=== PATIENT | male | born 1940 | race Caucasian/White ===

== ENCOUNTER 2017-07-20 13:08 | Emergency (ER) | payer MEDICARE, BC ==
[~2017-07-20] VITALS: Ht 180.3 cm; Wt 110.3 kg
[~2017-07-20 13:08] MED LIST: ACLI1AER2 INH; ALLO300T2 PO; APIX5TAB PO; CEPH-460 PO; DESO0.053 TOPICAL; FURO1TAB60 PO; GLIP5TAB8 PO; KETO2CRE TOPICAL; METO50TA PO; METO5TAB3 PO; PIOG45TA3 PO; POTA-163 PO; SIMV20TA PO; SPIRCAP INH
[2017-07-20 13:35] VITALS: BP 134/58; PULSE 97; RESP 20; TEMP 97.3; O2SAT 94
[2017-07-20] MEDS ORDERED: OXYMETAZOLINE HCL 0.05% 15 ML NASAL SPRAY NASAL ONE (14:15)
[2017-07-20] MEDS ORDERED: MUPI2CRE3 (14:17)
[2017-07-20] MEDS ORDERED: LISI2.5T3 PO (14:17)
--- NOTE | 2017-07-20 14:32 | PD ---
HPI Chief Complaint: Nosebleed Time Seen by Provider: 14:00 Travel History International Travel<30 days: No Contact w/Intl Traveler<30days: No Traveled to known affect area: No History of Present Illness HPI This is a 76-year-old male who is on Eliquis for atrial fibrillation who has a history of recurrent epistaxis he follows with Dr. Jara who presents today with bleeding from his nose. He's been bleeding for about an hour and a half, constant, moderate severity. He tried to pack his nose and keep pressure on it but it hasn't helped so he came to the emergency department. Dr. Jara has been cauterizing his nose in clinic. PFSH Past Medical History Hx Anticoagulant Therapy: Yes (ELIQUIS) Blood Disorders: No Cancer: No Cardiovascular Problems: Yes (CAD, BYPASS SURGERY) Diabetes: Yes (TYPE II) Patient Takes Glucophage: No Diminished Hearing: Yes (hearing aids) Endocrine: Yes Gastrointestinal Disorders: No Gout: Yes Genitourinary: No Hepatitis: No Hiatal Hernia: No Hypertension: Yes Medical other: Yes (DIVERTICULITIS) Neurologic: No Psychiatric: No Reproductive: No Respiratory: No Thyroid Disease: No Past Surgical History Abdominal Surgery: Yes (DIVERTICULITIS SX, COLOSTOMY, BOWEL RESECTION, REPAIR ABD INCISIONAL HERNIA) Cardiac Surgery: Yes (1 VESSEL CABG 1999, REPEATED IN 2 MONTHS, ABLATION FOR AFIB X 2, aicd) Ear Surgery: No Endocrine Surgery: No Eye Surgery: Yes (BILATERAL CATARACT) Genitourinary Surgery: No Gynecologic Surgery: No Joint Replacement: Yes (LEFT HIP/RIGHT KNEE) Oral Surgery: Yes Pacemaker: Yes (aicd) Thoracic Surgery: No Other Surgery: Yes Social History Alcohol Use: Yes (~2 X WEEKLY) Tobacco Use: No Substance Use: No Allergies-Medications (Allergen,Severity, Reaction): Coded Allergies: No Known Allergies (Verified , 07/20/17) Reported Meds & Prescriptions Reported Meds & Active Scripts Active Reported Mupirocin (Mupirocin Calcium (Topical)) 2 % Cre Lisinopril 2.5 Mg Tab 2.5 Mg PO DAILY Tudorza Pressair Inh (Aclidinium [place] Inh) 400 Mcg/Act Aerp 1 Puff INH BID Desonide Topical (Desonide) 0.05% Lotn 1 Applic TOPICAL DIRECTED Eliquis (Apixaban) 5 Mg Tab 5 Mg PO BID Lasix (Furosemide) 40 Mg Tab 40 Mg PO DAILY Metolazone 5 Mg Tab 5 Mg PO DAILY Metoprolol Tartrate 50 Mg Tab 50 Mg PO BID Pioglitazone (Pioglitazone HCl) 45 Mg Tab 45 Mg PO DAILY Simvastatin 20 Mg Tab 20 Mg PO DAILY Glipizide 5 Mg Tab 1.5 Tab PO BIDAC Take 30 minutes before a meal Allopurinol 300 Mg Tab 300 Mg PO DAILY Review of Systems Except as stated in HPI: all other systems reviewed are Neg Physical Exam Narrative GENERAL:Well appearing, no acute distress SKIN: Focused skin assessment warm and dry. HEAD: Atraumatic. Normocephalic. EYES: Pupils equal and round. No injection or drainage. ENT: Dark clot and slow trickling of blood from the right Nare NECK: Trachea midline. CARDIOVASCULAR: Regular rate and rhythm. No murmur appreciated. RESPIRATORY: Clear to auscultation. Breath sounds equal bilaterally. GASTROINTESTINAL: Abdomen soft, non-tender, nondistended. MUSCULOSKELETAL: No obvious deformities. NEUROLOGICAL: Awake and alert. No obvious cranial nerve deficits. Moving all extremities. PSYCHIATRIC: Appropriate mood and affect; insight and judgment normal. Data Data Last Documented VS Vital Signs Date Time Temp Pulse Resp B/P (MAP) Pulse Ox O2 Delivery O2 Flow Rate FiO2 07/20/17 13:35 97.3 97 20 134/58 (83) 94 Orders Orders Oxymetazoline 0.05% Kobi Waldron (Afrin 0.0 (07/20/17 14:15) [facility] Medical Decision Making Medical Screen Exam Complete: Yes Emergency Medical Condition: Yes Interpretation(s) Afebrile, mild tachycardia, normotensive Differential Diagnosis Anterior epistaxis, posterior epistaxis, hypertension Narrative Course This is a 76-year-old male who presents to the emergency department with epistaxis in the setting of Eliquis use for atrial fibrillation. He just took an Eliquis an hour prior to arrival. I initially tried Afrin and manual pressure however he continued to have bleeding. I placed a 7.5 cm pack in the right nare. Bleeding subsided. Patient was instructed to return to the emergency department on Saturday for removal of packing as it's Labor Day and Dr. Jara's office will be closed. Procedures Procedure Narrative Nasal packin.5 cm Rhino Rocket was placed in the right nare. Pt. tolerated procedure well. Diagnosis Primary Impression: Anterior epistaxis Patient Instructions: General Instructions Additional Instructions: If you develop worsening bleeding, lightheadedness or dizziness return to the emergency department. Sleep upright and avoid laughing or lifting heavy objects. Follow-up on Saturday here in the emergency department to have your packing removed. Complete your antibiotics. Hold your Eliquis. Med/Other Pt SpecificInfo: Prescription(s) given Scripts Amoxicillin-Clavulanate (Augmentin) 875-125 Mg Tab 1 TAB PO BID for Infection, #10 TAB 0 Refills Prov: Samantha Gonzalez MD 07/20/17 Disposition: 01 DISCHARGE HOME Condition: Stable Samantha Gonzalez MD Jul 20, 2017 14:32
[2017-07-20] MEDS ORDERED: AUGM875T3 PO (15:47)
== END 2017-07-20 16:07 | disposition home or self-care (01) ==
LOC: PHED 13:08
DX: R04.0 Epistaxis (principal); E11.9 Type 2 diabetes mellitus without complications; I10 Essential (primary) hypertension; H91.90 Unspecified hearing loss, unspecified ear; Z79.01 Long term (current) use of anticoagulants; Z79.84 Long term (current) use of oral hypoglycemic drugs; Z86.79 Personal history of other diseases of the circulatory system; Z87.39 Personal history of other diseases of the musculoskeletal system and connective tissue; Z87.19 Personal history of other diseases of the digestive system
CPT/HCPCS: 30901

== ENCOUNTER 2017-07-22 10:16 | Emergency (ER) | payer MEDICARE, BC ==
[~2017-07-22] VITALS: Ht 180.3 cm; Wt 107.8 kg
[~2017-07-22 10:16] MED LIST changes: +AUGM875T3 PO; -CEPH-460 PO; -KETO2CRE TOPICAL; +LISI2.5T3 PO; +MUPI2CRE3; -POTA-163 PO; -SPIRCAP INH
[2017-07-22 10:24] VITALS: BP 77/53; PULSE 106; RESP 16; TEMP 97.7; O2SAT 96
[2017-07-22 10:43] VITALS: BP 117/60; PULSE 98; RESP 18; O2SAT 98
--- NOTE | 2017-07-22 11:01 | PD ---
HPI Chief Complaint: ENT Complaint Time Seen by Provider: 10:59 Travel History International Travel<30 days: No Contact w/Intl Traveler<30days: No Traveled to known affect area: No History of Present Illness HPI 76-year-old male with history of A. fib currently on Eliquis, frequent epistaxis status post cauterization by Dr. Jara in the past, seen 2 days ago for epistaxis from the right side and had a Rhino Rocket placed by Dr. Gonzalez, presents to the ER today to get the packing removed. He has not yet been able to follow-up with Dr. Jara due to the holidays. He is currently off of his Eliquis for 2 days and is on amoxicillin. He reports no other issues. Modifying Factors: None Associated Signs & Symptoms: Epistaxis, packing removal Risk Factors: History of epistaxis status post cauterization by Dr. Jara in the past PFSH Past Medical History Hx Anticoagulant Therapy: Yes (ELIQUIS) Blood Disorders: No Cancer: No Cardiovascular Problems: Yes (a-fib) Diabetes: Yes (TYPE II) Patient Takes Glucophage: No Diminished Hearing: Yes (hearing aids) Endocrine: Yes Gastrointestinal Disorders: No Gout: Yes Genitourinary: No Hepatitis: No Hiatal Hernia: No Hypertension: Yes Medical other: Yes (DIVERTICULITIS) Neurologic: No Psychiatric: No Reproductive: No Respiratory: No Thyroid Disease: No Past Surgical History Abdominal Surgery: Yes (DIVERTICULITIS SX, COLOSTOMY, BOWEL RESECTION, REPAIR ABD INCISIONAL HERNIA) Cardiac Surgery: Yes (1 VESSEL CABG 1999, REPEATED IN 2 MONTHS, ABLATION FOR AFIB X 2, aicd) Ear Surgery: No Endocrine Surgery: No Eye Surgery: Yes (BILATERAL CATARACT) Genitourinary Surgery: No Gynecologic Surgery: No Joint Replacement: Yes (LEFT HIP/RIGHT KNEE) Oral Surgery: Yes Pacemaker: Yes (aicd) Thoracic Surgery: No Other Surgery: Yes Social History Alcohol Use: Yes (~2 X WEEKLY) Tobacco Use: No Substance Use: No Allergies-Medications (Allergen,Severity, Reaction): Coded Allergies: digitoxin (Verified Allergy, Severe, Hallucinations, 07/22/17) Reported Meds & Prescriptions Reported Meds & Active Scripts Active Augmentin (Amoxicillin-Clavulanate) 875-125 Mg Tab 1 Tab PO BID Reported Mupirocin (Mupirocin Calcium (Topical)) 2 % Cre Lisinopril 2.5 Mg Tab 2.5 Mg PO DAILY Tudorza Pressair Inh (Aclidinium [place] Inh) 400 Mcg/Act Aerp 1 Puff INH BID Desonide Topical (Desonide) 0.05% Lotn 1 Applic TOPICAL DIRECTED Eliquis (Apixaban) 5 Mg Tab 5 Mg PO BID Lasix (Furosemide) 40 Mg Tab 40 Mg PO DAILY Metolazone 5 Mg Tab 5 Mg PO DAILY Metoprolol Tartrate 50 Mg Tab 50 Mg PO BID Pioglitazone (Pioglitazone HCl) 45 Mg Tab 45 Mg PO DAILY Simvastatin 20 Mg Tab 20 Mg PO DAILY Glipizide 5 Mg Tab 1.5 Tab PO BIDAC Take 30 minutes before a meal Allopurinol 300 Mg Tab 300 Mg PO DAILY Review of Systems Except as stated in HPI: all other systems reviewed are Neg Physical Exam Narrative GENERAL: Well-nourished, well-developed pleasant elderly white male patient in no acute distress. SKIN: Focused skin assessment warm/dry. HEAD: Normocephalic. EYES: No scleral icterus. No injection or drainage. ENT: Mucosa pink and moist. Airway patent. Rhino Rocket in place in the right near with no bleeding. NECK: Supple, trachea midline. No JVD or lymphadenopathy. CARDIOVASCULAR: Regular rate and rhythm without murmurs, gallops, or rubs. RESPIRATORY: Breath sounds equal bilaterally. No accessory muscle use. GASTROINTESTINAL: Abdomen soft, non-tender, nondistended. MUSCULOSKELETAL: No cyanosis, or edema. BACK: Nontender without obvious deformity. No CVA tenderness. Data Data Last Documented VS Vital Signs Date Time Temp Pulse Resp B/P (MAP) Pulse Ox O2 Delivery O2 Flow Rate FiO2 07/22/17 10:43 98 18 117/60 (79) 98 Room Air 07/22/17 10:24 97.7 [facility] Medical Decision Making Medical Screen Exam Complete: Yes Emergency Medical Condition: Yes Medical Record Reviewed: Yes Differential Diagnosis Epistaxis/packing removal Narrative Course Considering that he is currently stable, I have talked to Dr. Man who is covering for Dr. Jara and he states that he would not remove the packing and would see the patient tomorrow in his office to remove the packing. Return for any bleeding or new issues as needed. The plan has been discussed with the patient and he states understanding. Diagnosis Primary Impression: Epistaxis Referrals: Milton Jara MD 1 day Disposition: 01 DISCHARGE HOME Condition: Stable Ellen Bosch MD Jul 22, 2017 11:01
[2017-07-22 11:15] VITALS: BP 117/60; PULSE 99; RESP 16; O2SAT 98
== END 2017-07-22 11:21 | disposition home or self-care (01) ==
LOC: PHED 10:16
DX: R04.0 Epistaxis (principal); E11.9 Type 2 diabetes mellitus without complications; I10 Essential (primary) hypertension; Z79.01 Long term (current) use of anticoagulants; Z86.79 Personal history of other diseases of the circulatory system; Z87.39 Personal history of other diseases of the musculoskeletal system and connective tissue; Z87.19 Personal history of other diseases of the digestive system
CPT/HCPCS: 99281

== ENCOUNTER 2018-08-19 15:43 | Inpatient (IN) ==
[2018-08-19 16:02] LABS: Baso % (Auto) 0.2 % (0.0-2.0); Eos # (Auto) 0.1 th/mm3 (0.0-0.4); Eos % (Auto) 1.1 % (0.0-4.0); Hematocrit 28.5 % (39.0-51.0); Hemoglobin 9.9 gm/dL (13.0-17.0); Lymph % (Auto) 7.9 % (9.0-44.0); Mean Corpuscular HGB Conc 34.7 % (32.0-36.0); Mean Corpuscular Hemoglobin 35.7 pg (27.0-34.0); Mean Platelet Volume 8.4 fL (7.0-11.0); Mono # (Auto) 0.9 th/mm3 (0.0-0.9); Mono % (Auto) 6.7 % (0.0-8.0); Neut # (Auto) 11.2 th/mm3 (1.8-7.7); Neut % (Auto) 84.1 % (16.0-70.0); Platelet Count 224 th/mm3 (150-450); Red Blood Count 2.77 mil/mm3 (4.50-5.90); Red Cell Distribution Width 16.6 % (11.6-17.2); White Blood Count 13.2 th/mm3 (4.0-11.0)
--- NOTE | 2018-08-19 16:17 | ED ---
HPI General Chief complaint: Altered Mental Status Stated complaint: Seizures Time Seen by Provider: 08/19/18 16:09 Source: family and EMS Mode of arrival: EMS Limitations: altered mental status History of Present Illness HPI narrative: 77yo M with PMH of afib on eliquis, DM, HTN was brought in by EVAC with his for fall and altered mental status today. His said he fell and hit his head yesterday at 11pm and there was a little blood but he did not want to come in to the hospital so did not come. Said around 3pm today, she heard him yell for her and she went to the kitchen and found him unresponsive on the floor. Said she shaked him and he was responsive but not acting like himself. Pt has blood in posterior scalp and denies any complaints. said he is more belligerent and that is not like him. Nurse said that the worker who came to help the saw seizure like activity prior to EVAC arrival. Related Data Home Medications Medication Instructions Recorded Confirmed allopurinol 300 mg PO DAILY 08/19/18 08/19/18 bumetanide 4 mg PO BID 08/19/18 08/19/18 diltiazem HCl 1 cap PO DAILY 08/19/18 08/19/18 glipizide 7.5 mg PO BID 08/19/18 08/19/18 magnesium oxide 400 mg PO BID 08/19/18 08/19/18 metolazone 5 mg PO DAILY 08/19/18 08/19/18 metoprolol tartrate 50 mg PO BID 08/19/18 08/19/18 potassium chloride 1 tab PO BID 08/19/18 08/19/18 sildenafil (antihypertensive) 20 mg PO TID 08/19/18 08/19/18 simvastatin 20 mg PO QPM 08/19/18 08/19/18 Allergies Allergy/AdvReac Type Severity Reaction Status Date / Time digitoxin Allergy Severe Hallucinati Verified 08/19/18 15:46 ons Review of Systems ROS: all other systems reviewed are negative [facility] Medical History Medical History Atrial fibrillation (Acute) Diabetes (Acute) Gout (Acute) Surgical History Surgical History AICD (automatic cardioverter/defibrillator) present (Acute) Social History Social History Substance History: No History of Abuse Second Hand Smoke Exposure: No Smoking Status: Former smoker How Often Do You Have a Drink Containing Alcohol: Monthly or less Recent Travel in [facility] within the Last 8 Weeks: No Recent Out of Country Travel within the Last 8 Weeks: No Exam Narrative Exam Narrative: GENERAL: 77yo M in mild distress. SKIN: Focused skin assessment warm/dry. HEAD: +Abrasion in posterior scalp. EYES: Pupils equal and round at 3mm bilaterally. ENT: No septal hematoma. +Blood in right external ear. 3cm laceration behind right ear with active bleeding. NECK: In cervical spine collar. CARDIOVASCULAR: Regular rate and rhythm. No murmur appreciated. RESPIRATORY: No accessory muscle use. Clear to auscultation. Breath sounds equal bilaterally. GASTROINTESTINAL: Abdomen soft, non-tender, nondistended. MUSCULOSKELETAL: +Skin tears in right forearm. Distal pulses intact. Sensation intact. NEUROLOGICAL: Awake and alert. No obvious cranial nerve deficits. Motor grossly within normal limits. Normal speech. Procedures Laceration Laceration 1: Site: face Side (If applicable): right Size (cm): 3 Description: linear Depth: simple, single layer Amount (mL): 4 Pre-repair:: wound explored and irrigated extensively Skin layer closed with: ethilon Size (cm): 6-0 Number of sutures:: 7 Technique:: simple, interrupted Course Initial Documented Vital Signs Temperature 98.2 F 08/19/18 15:46 Pulse Rate 104 H 08/19/18 15:46 Respiratory Rate 24 08/19/18 15:46 Blood Pressure 123/62 08/19/18 15:46 Pulse Oximetry 94 L 08/19/18 15:46 Last Documented Vital Signs Temperature 98.2 F 08/19/18 15:46 Pulse Rate 73 08/19/18 17:33 Respiratory Rate 18 08/19/18 17:33 Blood Pressure 115/60 08/19/18 17:33 Pulse Oximetry 93 L 08/19/18 17:33 Critical Care Time Critical Care Time: Yes Total Critical Care Time: 50 Attestation: Aggregate critical care time was 50 minutes. Time to perform other separately billable procedures was not included in the critical care time. My time did not include minutes spent treating any other patients simultaneously or on activities that did not directly contribute to the patient's treatment. The services I provided to this patient were to treat and/or prevent clinically significant deterioration that could result in: cardiovascular collapse or . I provided critical care services requiring my management, as noted below: Chart data review, documentation time, medication orders and management, vital sign assessments/reviewing monitor data, ordering and reviewing lab tests, ordering and interpreting/reviewing x-rays and diagnostic studies, care of the patient and discussion of the patient with the admitting physicians. Medical Decision Making MDM Narrative Medical decision making narrative: 77yo M with afib on eliquis here for AMS after a fall today. Pt actually fell and hit his head yesterday at 11pm as well but did not want to seek medical attention. It sounds like he may also have had a seizure after today's fall. Pt is more belligerent than normal but is now calm after we took off the back board. Pt is awake, alert and following commands. Labs reviewed, mild leukocytosis at 13.2. H/H low at 9.9/28.5. Hypokalemia at 2.8, replaced with 10mEq KCl IV x3. BUN/creatinine is elevated at 79/2.40, likely acute. Bilirubin is elevated at 1.9. Will give NS IVF. CT brain showed acute intraparenchymal hemorrhage in the left frontal lobe with apparent mild surrounding subarachnoid hemorrhage and mild edema. No significant mass effect or midline shift. 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 Discussed with neurosurgeon Dr. Smith and he recommends admission to neuro ICU and agrees with Darryl and keron. Discussed with computer drafter Dr. Reeder and accepted to his service. Cervical spine collar was removed and laceration was found behind right ear and explored. It is actively bleeding so repaired with 6-0 nylon. knows to have sutures remove in 5 days. Pt is now calm and cooperative. Has not had any seizure activity here and transferred to [facility] in stable conditions. Medical Screen Exam Complete: Yes Emergency Medical Condition: Yes Differential Diagnosis Differential Diagnosis: ICH vs. seizure vs. electrolyte abnormality vs. ACS Lab Data Result diagrams: 08/19/18 15:50 08/19/18 15:50 Lab Results 08/19/18 08/19/18 08/19/18 Range/Units 15:50 15:50 15:50 CBC w Diff Auto diff final WBC 13.2 H (4.0-11.0) th/mm3 RBC 2.77 L (4.50-5.90) mil/mm3 Hgb 9.9 L (13.0-17.0) gm/dL Hct 28.5 L (39.0-51.0) % MCV 103.0 H (80.0-100.0) fL MCH 35.7 H (27.0-34.0) pg MCHC 34.7 (32.0-36.0) % RDW 16.6 (11.6-17.2) % Plt Count 224 (150-450) th/mm3 MPV 8.4 (7.0-11.0) fL Neut % (Auto) 84.1 H (16.0-70.0) % Lymph % (Auto) 7.9 L (9.0-44.0) % [place] % (Auto) 6.7 (0.0-8.0) % Eos % (Auto) 1.1 (0.0-4.0) % Baso % (Auto) 0.2 (0.0-2.0) % Neut # (Auto) 11.2 H (1.8-7.7) th/mm3 Lymph # (Auto) 1.0 (1.0-4.8) th/mm3 [place] # (Auto) 0.9 (0.0-0.9) th/mm3 Eos # (Auto) 0.1 (0.0-0.4) th/mm3 Baso # (Auto) 0.0 (0.0-0.2) th/mm3 WBC Differential . Differential Comment . PT 13.0 H (9.8-11.6) sec INR 1.3 Ratio APTT 31.7 H (24.3-30.1) sec Sodium 134 L (136-145) meq/L Potassium 2.8 L* (3.5-5.1) meq/L Chloride 90 L (98-107) meq/L Carbon Dioxide 28.0 (21.0-32.0) meq/L Anion Gap 16 H (5-15) meq/L BUN 79 H (7-18) mg/dL Creatinine 2.40 H (0.60-1.30) mg/dL Estimated GFR 26 L (>89) mL/min Random Glucose 268 H (74-106) mg/dL Calcium 8.4 L (8.5-10.1) mg/dL Magnesium (1.5-2.5) mg/dL Total Bilirubin 1.9 H (0.2-1.0) mg/dL AST 18 (15-37) U/L ALT 12 (12-78) U/L Alkaline Phosphatase 86 (45-117) U/L Troponin I (0.02-0.05) ng/mL Total Protein 7.5 (6.4-8.2) g/dL Albumin 3.3 L (3.4-5.0) g/dL TSH (0.358-3.740) uIU/mL Urine Color (Yellw/Straw) Urine Clarity (Clear) Urine pH (5.0-8.5) Ur Specific [place] (1.002-1.035) Urine Protein (Neg-Trace) mg/dL Urine Glucose (UA) (Negative) mg/dL Urine Ketones (Negative) mg/dL Urine Occult Blood (Negative) Urine Nitrate (Negative) Urine Bilirubin (Negative) Urine Urobilinogen (Less than 2) mg/dL Ur Leukocyte Esterase (Negative) Urine WBC (0-5) /hpf Ur Renal Epithelial Cell (None) /hpf Amorphous Sediment (None) /hpf Hyaline Casts (0-3) /lpf Micro UA Comment Ur Microscopic Review Urine Culture Comments Blood Type Antibody Screen 08/19/18 08/19/18 08/19/18 Range/Units 15:50 15:52 15:52 CBC w Diff WBC (4.0-11.0) th/mm3 RBC (4.50-5.90) mil/mm3 Hgb (13.0-17.0) gm/dL Hct (39.0-51.0) % MCV (80.0-100.0) fL MCH (27.0-34.0) pg MCHC (32.0-36.0) % RDW (11.6-17.2) % Plt Count (150-450) th/mm3 MPV (7.0-11.0) fL Neut % (Auto) (16.0-70.0) % Lymph % (Auto) (9.0-44.0) % [place] % (Auto) (0.0-8.0) % Eos % (Auto) (0.0-4.0) % Baso % (Auto) (0.0-2.0) % Neut # (Auto) (1.8-7.7) th/mm3 Lymph # (Auto) (1.0-4.8) th/mm3 [place] # (Auto) (0.0-0.9) th/mm3 Eos # (Auto) (0.0-0.4) th/mm3 Baso # (Auto) (0.0-0.2) th/mm3 WBC Differential Differential Comment PT (9.8-11.6) sec INR Ratio APTT (24.3-30.1) sec Sodium (136-145) meq/L Potassium (3.5-5.1) meq/L Chloride (98-107) meq/L Carbon Dioxide (21.0-32.0) meq/L Anion Gap (5-15) meq/L BUN (7-18) mg/dL Creatinine (0.60-1.30) mg/dL Estimated GFR (>89) mL/min Random Glucose (74-106) mg/dL Calcium (8.5-10.1) mg/dL Magnesium 1.5 (1.5-2.5) mg/dL Total Bilirubin (0.2-1.0) mg/dL AST (15-37) U/L ALT (12-78) U/L Alkaline Phosphatase (45-117) U/L Troponin I 0.05 (0.02-0.05) ng/mL Total Protein (6.4-8.2) g/dL Albumin (3.4-5.0) g/dL TSH 7.940 H (0.358-3.740) uIU/mL Urine Color (Yellw/Straw) Urine Clarity (Clear) Urine pH (5.0-8.5) Ur Specific [place] (1.002-1.035) Urine Protein (Neg-Trace) mg/dL Urine Glucose (UA) (Negative) mg/dL Urine Ketones (Negative) mg/dL Urine Occult Blood (Negative) Urine Nitrate (Negative) Urine Bilirubin (Negative) Urine Urobilinogen (Less than 2) mg/dL Ur Leukocyte Esterase (Negative) Urine WBC (0-5) /hpf Ur Renal Epithelial Cell (None) /hpf Amorphous Sediment (None) /hpf Hyaline Casts (0-3) /lpf Micro UA Comment Ur Microscopic Review Urine Culture Comments Blood Type A Positive Antibody Screen Negative 10/02/18 Range/Units 16:29 CBC w Diff WBC (4.0-11.0) th/mm3 RBC (4.50-5.90) mil/mm3 Hgb (13.0-17.0) gm/dL Hct (39.0-51.0) % MCV (80.0-100.0) fL MCH (27.0-34.0) pg MCHC (32.0-36.0) % RDW (11.6-17.2) % Plt Count (150-450) th/mm3 MPV (7.0-11.0) fL Neut % (Auto) (16.0-70.0) % Lymph % (Auto) (9.0-44.0) % [place] % (Auto) (0.0-8.0) % Eos % (Auto) (0.0-4.0) % Baso % (Auto) (0.0-2.0) % Neut # (Auto) (1.8-7.7) th/mm3 Lymph # (Auto) (1.0-4.8) th/mm3 [place] # (Auto) (0.0-0.9) th/mm3 Eos # (Auto) (0.0-0.4) th/mm3 Baso # (Auto) (0.0-0.2) th/mm3 WBC Differential Differential Comment PT (9.8-11.6) sec INR Ratio APTT (24.3-30.1) sec Sodium (136-145) meq/L Potassium (3.5-5.1) meq/L Chloride (98-107) meq/L Carbon Dioxide (21.0-32.0) meq/L Anion Gap (5-15) meq/L BUN (7-18) mg/dL Creatinine (0.60-1.30) mg/dL Estimated GFR (>89) mL/min Random Glucose (74-106) mg/dL Calcium (8.5-10.1) mg/dL Magnesium (1.5-2.5) mg/dL Total Bilirubin (0.2-1.0) mg/dL AST (15-37) U/L ALT (12-78) U/L Alkaline Phosphatase (45-117) U/L Troponin I (0.02-0.05) ng/mL Total Protein (6.4-8.2) g/dL Albumin (3.4-5.0) g/dL TSH (0.358-3.740) uIU/mL Urine Color Yellow (Yellw/Straw) Urine Clarity Slightly cloudy (Clear) Urine pH 5.0 (5.0-8.5) Ur Specific [place] 1.025 (1.002-1.035) Urine Protein 30 H (Neg-Trace) mg/dL Urine Glucose (UA) Negative (Negative) mg/dL Urine Ketones Negative (Negative) mg/dL Urine Occult Blood Negative (Negative) Urine Nitrate Negative (Negative) Urine Bilirubin Negative (Negative) Urine Urobilinogen 0.2 (Less than 2) mg/dL Ur Leukocyte Esterase Negative (Negative) Urine WBC 0-5 (0-5) /hpf Ur Renal Epithelial Cell Greater than 10 H (None) /hpf Amorphous Sediment Many H (None) /hpf Hyaline Casts 0-3 (0-3) /lpf Micro UA Comment Culture not ind Ur Microscopic Review Microscopic reviewed Urine Culture Comments Culture not ind Blood Type Antibody Screen Imaging Data Radiologist's impression: Cervical Spine CT 08/19/18 15:46 CONCLUSION: 1. Degenerative changes and DISH without evidence for acute fracture or listhesis. Head CT 08/19/18 15:46 CONCLUSION: 1. Acute intraparenchymal hemorrhage in the left frontal lobe with apparent mild surrounding subarachnoid hemorrhage and mild edema. There is no significant mass effect or midline shift. 2. Diffuse atrophic change commensurate with age. 3. No evidence of acute fracture. . Chest X-Ray 08/19/18 18:45 CONCLUSION: Mild failure. ECG Data EKG Prior to Arrival: No Attestation: I personally reviewed and interpreted this ECG as follows: Interpretation: Afib at 101bpm. ST depression diffusely. RAD. Discharge Plan Discharge Disposition Patient Disposition: 30 Still Patient Discharge Details Diagnosis: ICH (intracerebral hemorrhage) Physicians Team ED Provider: Cindy Gaona Primary Care Provider: UNKNOWN, Attending Provider: Zion Moreno Other Providers: Enrique Smith Status ED Status: Left Department Discharge Information Discharge Date/Time: 08/19/18 17:59
--- NOTE | 2018-08-19 16:24 | CT ---
EXAM DATE: 08/19/2018 3:54 PM EDT AGE/SEX: 77 years / Male INDICATIONS: Fell and hit head. CLINICAL DATA: This is the patient's initial encounter. Patient reports that signs and symptoms have been present for 1 day and indicates a pain score of 4/10. MEDICAL/SURGICAL HISTORY: . Anticoagulant therapy. None. RADIATION DOSE: 55.83 CTDI (mGy) COMPARISON: No prior exams available for comparison. TECHNIQUE: CT of the head without contrast. Using automated exposure control and adjustment of the mA and/or kV according to patient size, radiation dose was kept as low as reasonably achievable to ob tain optimal diagnostic quality images. DICOM format image data is available electronically for revi ew and comparison. FINDINGS: Cerebrum: The ventricles are normal for age with diffuse moderate atrophic change with sulcal and ve ntricular prominence. There is a 1.6 cm high density acute intraparenchymal hemorrhage in the left fr ontal lobe with mild surrounding edema. There is adjacent apparent subarachnoid hemorrhage as well. T here is no mass effect or midline shift. No other areas of acute hemorrhage are identified. Posterior Fossa: The cerebellum and brainstem are intact. The 4th ventricle is midline. The cerebe llopontine angle is unremarkable. Extracranial: The visualized portion of the orbits is intact. There is mucosal thickening in the rig ht maxillary sinus. Skull: The calvaria is intact. No evidence of skull fracture. CONCLUSION: 1. Acute intraparenchymal hemorrhage in the left frontal lobe with apparent mild surrounding subarac hnoid hemorrhage and mild edema. There is no significant mass effect or midline shift. 2. Diffuse atrophic change commensurate with age. 3. No evidence of acute fracture. . Electronically signed by: Jean Claude Alvraado MD 08/19/2018 4:23 PM EDT
[2018-08-19] MEDS ORDERED: Prothrombin Complex Conc Inj 4,500 UNIT in Syringe/Bag 1 EACH IV.SIG ONE (16:26)
[2018-08-19 16:27] LABS: Alanine Aminotransferase 12 U/L (12-78); Albumin 3.3 g/dL (3.4-5.0); Alkaline Phosphatase 86 U/L (45-117); Anion Gap 16 meq/L (5-15); Aspartate Aminotransferase 18 U/L (15-37); Blood Urea Nitrogen 79 mg/dL (7-18); Calcium 8.4 mg/dL (8.5-10.1); Chloride 90 meq/L (98-107); Glomerular Filtration Rate 26 mL/min (>89); Glucose,Random 268 mg/dL (74-106); Sodium 134 meq/L (136-145); Total Protein 7.5 g/dL (6.4-8.2)
[2018-08-19 16:29] LABS: Potassium 2.8 meq/L (3.5-5.1)
[2018-08-19] MEDS ORDERED: levETIRAcetam 1000mg/100mL Inj 100 ML IV.SIG ONE (16:29)
--- NOTE | 2018-08-19 16:33 | CT ---
EXAM DATE: 08/19/2018 3:54 PM EDT AGE/SEX: 77 years / Male INDICATIONS: Fell and hit head. CLINICAL DATA: This is the patient's initial encounter. Patient reports that signs and symptoms have been present for 1 day and indicates a pain score of 4/10. MEDICAL/SURGICAL HISTORY: . Anticoagulant therapy. None. RADIATION DOSE: 26.64 CTDI (mGy) COMPARISON: No prior exams available for comparison. TECHNIQUE: Contiguous axial images were obtained using helical multirow detector technique. The vol umetric data was post-processed with multiplanar reconstruction in oblique axial, sagittal, and coron al planes. Using automated exposure control and adjustment of the mA and/or kV according to patient s ize, radiation dose was kept as low as reasonably achievable to obtain optimal diagnostic quality jillian ges. DICOM format image data is available electronically for review and comparison. FINDINGS: There is prominent flowing ossification anterior to the cervical spine with slight disc space narrowi ng. The appearance is characteristic of DISH. There are no compression deformities. Alignment is norm al. Mild multilevel facet hypertrophic changes are seen. There is no prevertebral soft tissue swellin g. There is mild multilevel uncovertebral hypertrophy. The odontoid process is intact. No fractures a re seen. CONCLUSION: 1. Degenerative changes and DISH without evidence for acute fracture or listhesis. Electronically signed by: Sg Palmer MD 08/19/2018 4:32 PM EDT
[2018-08-19 16:34] LABS: Activated Partial Thrombo Time 31.7 sec (24.3-30.1); INR 1.3 Ratio
[2018-08-19] MEDS ORDERED: Morphine Sulfate Inj 2 MG/ML Vial IV.PUSH PRN (16:41)
[2018-08-19] MEDS ORDERED: Bisacodyl 10 MG Supp RECTAL PRN (16:41)
[2018-08-19] MEDS ORDERED: Acetaminophen 325 MG Tablet PO PRN (16:41)
[2018-08-19 16:42] LABS: Bilirubin,Urine Negative (Negative); Clarity,Urine Slightly Cloudy (Clear); Color,Urine Yellow (Yellw/Straw); Glucose,Urine (UA) Negative (Negative); Leukocyte Esterase,Urine Negative (Negative); Nitrite,Urine Negative (Negative); Specific Gravity,Urine 1.025 (1.002-1.035); Urobilinogen,Urine 0.2 mg/dL (Less than 2)
[2018-08-19 16:42] LABS: Troponin I 0.05 ng/mL (0.02-0.05)
[2018-08-19 16:47] LABS: Thyroid Stimulating Hormone 7.94 uIU/mL (0.358-3.740)
[2018-08-19] MEDS: Potassium Chlor 10 mEq Premix 10 MEQ/100 ML PIGGYBACK IV.SIG SCH ×2 (16:49→19:56)
[2018-08-19 16:50] LABS: WBC,Urine 0-5 /hpf (0-5)
[2018-08-19 16:51] LABS: Amorphous Sediment,Urine Many /hpf
[2018-08-19 16:52] LABS: Hyaline Casts,Urine 0-3 /lpf (0-3); Renal Epithelial Cells,Urine Greater than 10 /hpf
[2018-08-19] MEDS ORDERED: Dextrose 50% in Water 50 ML Vial IV.PUSH PRN (16:57)
[2018-08-19] MEDS ORDERED: Sodium Chlor 0.9% Inj 500 ML IV.SIG SCH ×2 (17:00→19:45)
[2018-08-19] MEDS: Famotidine 20 MG Tablet PO SCH (18:51)
--- NOTE | 2018-08-19 19:28 | XR ---
EXAM DATE: 08/19/2018 6:45 PM EDT AGE/SEX: 77 years / Male INDICATIONS: Short of breath. CLINICAL DATA: This is the patient's initial encounter. Patient reports that signs and symptoms have been present for 1 week and indicates a pain score of 0/10. MEDICAL/SURGICAL HISTORY: Non-responsive. Angioplasty. COMPARISON: [facility], XR CHEST PA AND LAT, 08/22/2017. . FINDINGS: Mild, diffuse but basilar predominant interstitial opacities are seen and probably indicative of a mi ld degree of failure. No large effusions seen. No pneumothorax. Mild cardiomegaly, similar to before. Patient has had previous median sternotomy. A cardiac pacer/def ibrillator is again noted. CONCLUSION: Mild failure. Electronically signed by: Don White MD 08/19/2018 7:27 PM EDT
--- NOTE | 2018-08-19 19:31 | P.CONNS ---
History of Present Illness Primary Care Provider: UNKNOWN Family Provider: Gary Rivera Chief Complaint: Left frontal IPH History of Present Illness: 77yoM on eliquis who fell yesterday. Today, he was found down by his and there may have been seizure like activity observed by EMS. Transferred to [place] ED where he was confused. Imaging showed a small 1cm left frontal contusion without mass effect or MLS. Given Kcentra and 1gm Keppra, transferred here where he is fully alert and oriented. Complaining of IV burning (fluids with 20 KCl). PMF - History History Provided By: Patient, Family Member - Medical History Medical History: Medical History (Last Updated 08/19/18 @ 15:58 by Joie Alexandre, RN) Atrial fibrillation Diabetes Gout - Surgical History Surgical History: Surgical History (Last Updated 08/19/18 @ 15:58 by Joie Alexandre, KEVYN) AICD (automatic cardioverter/defibrillator) present - Tobacco History Second Hand Smoke Exposure: No Tobacco Use In Past 30 Days: No Smoking Status: Former smoker - Alcohol History How Often Do You Have a Drink Containing Alcohol: Monthly or less - Substance Use History Substance History: No History of Abuse - Travel History Recent Travel in the [place] Within the Last 8 Weeks: No Recent Travel Out of the Country Within the Last 8 Weeks: No - Immunization History Tetanus Immunization: Unsure Hx Influenza Vaccine This Season: No Medications and Allergies Active Medications: Active Medications Acetaminophen (Tylenol) 650 mg PO Q6H PRN PRN Reason: PAIN 1-5 AND/OR FEVER >101F Al Hydroxide/Mg Hydroxide (Milk Of Magnbreanne Liq) 30 ml PO Q12H PRN PRN Reason: Mild Constipation Albuterol (Duoneb Neb (Prn)) 1 ampul NEB Q2HR NEB PRN PRN Reason: WHEEZING Bisacodyl (Dulcolax Supp) 10 mg RECTAL DAILY PRN PRN Reason: SEVERE CONSITIPATION Bumetanide (Bumex) 4 mg PO BID MAGALY Chlorhexidine Gluconate (Chlorhexidine 2% Cloth) 3 pack TOPICAL DAILY@0400 MAGALY Stop: 08/25/18 03:59 Chlorhexidine Gluconate (Chlorhexidine 2% Cloth) 3 pack TOPICAL DAILY@0400 PRN PRN Reason: Extra cloth needed Stop: 08/25/18 03:59 Dextrose (D50w Vial) 50 ml IV.PUSH UNSCH PRN PRN Reason: PER HYPOGLYCEMIA PROTOCOL Diltiazem HCl (Cardizem Cd 24hr) 180 mg PO DAILY [facility] Famotidine (Pepcid) 20 mg PO DAILY [facility] Last Admin: 08/19/18 18:51 Dose: Not Given Glucagon (Glucagon Inj) 1 mg OTHER PRN PRN PRN Reason: for Hypoglycemia Protocol Potassium Chloride (Kcl 10 Meq Premix Inj) 10 meq in 100 mls @ 100 mls/hr IV.SIG Q1H MAGALY Stop: 08/19/18 19:29 Last Infusion: 08/19/18 17:50 Dose: 50 mls/hr Potassium Chloride/Sodium Chloride (Ns + Kcl 20 Meq Inj) 1,000 mls @ 100 mls/ hr IV.CONT .Q10H MAGALY Sodium Chloride (Ns Inj) 500 mls @ 0 mls/hr IV.SIG BOLUS MAGALY Levetiracetam 500 mg/ Sodium (Chloride) 105 mls @ 400 mls/hr IV.SIG Q12H MAGALY Piperacillin/Tazobactam/Dextrose (Zosyn 3.375 Gm Premix) 50 mls @ 100 mls/hr IV.SIG Q8H MAGALY Sodium Chloride (Ns Inj) 500 mls @ 0 mls/hr IV.SIG BOLUS MAGALY Insulin Aspart (Novolog Insulin Correctional Sugar Inj) 0 unit SQ Q6HR [facility]; Protocol Lactulose (Lactulose Liq) 30 ml PO DAILY PRN PRN Reason: SEVERE CONSITIPATION Magnesium Oxide (Mag-Ox) 400 mg PO BID [facility] Metolazone (Zaroxolyn) 5 mg PO DAILY [facility] Metoprolol Tartrate (Lopressor) 50 mg PO BID [facility] Morphine Sulfate (Morphine Inj) 2 mg IV.PUSH Q2H PRN PRN Reason: PAIN SCALE 6 TO 10 Ondansetron HCl (Zofran Inj) 4 mg IV.PUSH Q6H PRN PRN Reason: NAUSEA OR VOMITING Potassium Chloride (K-Dur) 20 meq PO BID [facility] Pravastatin Sodium (Pravachol) 40 mg PO QPM [facility] Senna/Docusate Sodium (Janeen-Colace) 1 tab PO BID [facility] Sennosides (Senokot) 17.2 mg PO Q12H PRN PRN Reason: Moderate Constipation Sodium Chloride (Ns Flush) 2 ml IV.FLUSH BID MAGALY Sodium Chloride (Ns Flush) 2 ml IV.FLUSH PRN PRN PRN Reason: FLUSH AFTER USING IV ACCESS Allergies Allergy/AdvReac Type Severity Reaction Status Date / Time digitoxin Allergy Severe Hallucinati Verified 08/19/18 15:46 ons Home Medications Medication Instructions Recorded Confirmed Type allopurinol 300 mg PO DAILY 08/19/18 08/19/18 History bumetanide 4 mg PO BID 08/19/18 08/19/18 History diltiazem HCl 1 cap PO DAILY 08/19/18 08/19/18 History glipizide 7.5 mg PO BID 08/19/18 08/19/18 History magnesium oxide 400 mg PO BID 08/19/18 08/19/18 History metolazone 5 mg PO DAILY 08/19/18 08/19/18 History metoprolol tartrate 50 mg PO BID 08/19/18 08/19/18 History potassium chloride 1 tab PO BID 08/19/18 08/19/18 History sildenafil (antihypertensive) 20 mg PO TID 08/19/18 08/19/18 History simvastatin 20 mg PO QPM 08/19/18 08/19/18 History Exam Vital signs: Vital Signs 08/19/18 15:46 08/19/18 16:22 08/19/18 17:15 Temperature 98.2 F Pulse Rate 104 H 85 86 Respiratory Rate 24 18 18 Blood Pressure 123/62 110/56 L 118/63 Pulse Oximetry 94 L 100 98 08/19/18 17:17 08/19/18 17:33 Temperature Pulse Rate 73 Respiratory Rate 18 Blood Pressure 115/60 Pulse Oximetry 97 93 L Intake & Output 08/19/18 08/19/18 08/20/18 06:59 18:59 06:59 Intake Total 328.5 / 328.5 Output Total 150 / 150 Balance 178.5 / 178.5 Weight 92 kg Intake: IV 328.5 / 328.5 KCl 10 mEq Premix Inj 10 meq In 48.5 / 48.5 100 ml @ 100 mls/hr IV.SIG Q1H MAGALY Rx#:[id number] Kcentra Inj 4,500 UNIT In Bag/ 180 / 180 Syringe 1 EACH @ 500 mls/hr IV. SIG ONCE ONE Rx#:[id number] Keppra 1000 mg/100 mL Premix 100 / 100 100 ML @ 400 mls/hr IV.SIG ONCE ONE Rx#:[id number] Output: Urine Amount (Catheter) 150 / 150 Indwelling Urethral Catheter 150 / 150 Narrative: A&O x 3, person, place, address, president CN II-XII intact Motor 5/5 UE/LE Reflexes symmetric physiologic Results - Laboratory Findings CBC and BMP: 08/19/18 15:50 08/19/18 15:50 Abnormal lab findings: Abnormal Labs 08/19/18 08/19/18 08/19/18 15:50 15:50 15:50 WBC 13.2 H RBC 2.77 L Hgb 9.9 L Hct 28.5 L MCV 103.0 H MCH 35.7 H Neut % (Auto) 84.1 H Lymph % (Auto) 7.9 L Neut # (Auto) 11.2 H PT 13.0 H APTT 31.7 H Sodium 134 L Potassium 2.8 L* Chloride 90 L Anion Gap 16 H BUN 79 H Creatinine 2.40 H Estimated GFR 26 L Random Glucose 268 H Calcium 8.4 L Total Bilirubin 1.9 H Albumin 3.3 L TSH Urine Protein Ur Renal Epithelial Cell Amorphous Sediment 08/19/18 08/19/18 15:50 16:29 WBC RBC Hgb Hct MCV MCH Neut % (Auto) Lymph % (Auto) Neut # (Auto) PT APTT Sodium Potassium Chloride Anion Gap BUN Creatinine Estimated GFR Random Glucose Calcium Total Bilirubin Albumin TSH 7.940 H Urine Protein 30 H Ur Renal Epithelial Cell Greater than 10 H Amorphous Sediment Many H Assessment and Plan - Plan 77yoM who fell with left frontal traumatic contusion on eliquis (reversed), possible seizure like activity. Neuro checks q2 overnight Repeat hCT in AM Keppra 500mg BID to continue May switch IVF to NS alone if KCL is bothering him.
--- NOTE | 2018-08-19 20:21 | MH ---
cc: Leslee Taylor MD DATE OF ADMISSION: 08/19/2018 HISTORY OF PRESENT ILLNESS: The patient is a 77-year-old male with a past medical history of atrial fibrillation, on Eliquis, and multiple ablations in the past, diabetes mellitus, hypertension, who presented to the [place] ED by [facility] status post fall and with altered mental status. Per ED records, the patient fell and hit his head yesterday at 11 p.m.; however, he refused to come to the hospital. Today at 3 p.m., the patient was found unresponsive on the floor in the kitchen. When his shook him, he was responsive, but not acting like himself. Blood was noted on the posterior scalp, and the patient denies any complaints. CT scan of the brain was obtained which showed an acute intraparenchymal hemorrhage in the left frontal lobe with mild surrounding subarachnoid hemorrhage and mild edema. No significant mass effect or midline shift. No evidence of acute fracture. Also, he had a cervical spine CT which showed degenerative changes without any evidence for acute fracture. His laboratory data is noted for leukocytosis with a WBC of 13.2, acute renal failure with a BUN of 79 and creatinine of 2.4 and hypokalemia with a potassium level of 2.8. His INR was 1.3. In the ED, the patient received prothrombin complex concentrate, 500 bolus of NS and potassium replacement. Dr. Smith from neurosurgery was notified and the patient was transferred to the surgical ICU at the [facility]. When seen, he is awake, alert, on 2 liters nasal cannula. His current blood pressure is 139/67 with a pulse of 93 and a saturation of 97%. He denies any chest pain; however, he reports occasional shortness of breath. The patient denies any orthopnea or PND; however, he reports edema of his lower extremities. Furthermore, he denies any nausea, vomiting or abdominal pain. PAST MEDICAL HISTORY: Significant for chronic atrial fibrillation, on Eliquis, hypertension, diabetes mellitus, gout, hyperlipidemia. PAST SURGICAL HISTORY: Previous AICD placement, previous bowel resection, previous hip replacement, right knee replacement, previous several ablations for atrial fibrillation. SOCIAL HISTORY: The patient quit smoking 30 years ago and has a [id number] history of smoking. Social drinker. ALLERGIES: DIGOXIN. MEDICATIONS: Reported medications at home include: 1. Sildenafil 2. Metoprolol. 3. Potassium. 4. Glipizide. 5. Simvastatin. 6. Magnesium. 7. Diltiazem. 8. Bumex. 9. Allopurinol. 10. Metolazone. REVIEW OF SYSTEMS: As per HPI. The rest of review of systems is unremarkable. FAMILY HISTORY: Noncontributory to present illness. PHYSICAL EXAMINATION: GENERAL: A 77-year-old male lying in bed, in no acute respiratory distress. VITAL SIGNS: Temperature 98.2, pulse 73, respiratory rate 18, blood pressure 139/67, saturation 93% to 97% on 2 liters oxygen. HEENT: Atraumatic, normocephalic. Pupils are equal, round and reactive to light and accommodation. Extraocular muscles intact. Conjunctivae pink. Nonicteric sclerae. Oral mucosa with dry mucous membranes noted. NECK: Supple. No JVD, adenopathy or thyromegaly. Trachea in the midline. CARDIOVASCULAR: Regular rate and rhythm. Normal S1, S2. No murmurs, rubs or gallops noted. PULMONARY: Bilateral equal air entry. No rales or wheezing. ABDOMEN: Soft, nontender. No distention. Positive bowel sounds. EXTREMITIES: No cyanosis. 2+ edema and erythema noted. NEUROLOGIC: No focal sensory deficit. LABORATORY DATA: WBC 13.2, hemoglobin 9.9, hematocrit 28, platelet count 224. Sodium 134, potassium 2.8, chloride 90, CO2 of 28, BUN 79, creatinine 2.4, glucose 268, total bilirubin 1.9, AST 18, ALT 12, alkaline phosphatase 86, albumin 3.3. TSH 7.94. RADIOGRAPHIC STUDIES: Cervical spine CT showed no acute fracture. CT brain showed acute intraparenchymal hemorrhage in the left frontal lobe with mild subarachnoid hemorrhage and mild edema. IMPRESSION: 1. Respiratory insufficiency. 2. Status post fall. 3. Acute intraparenchymal hemorrhage, left frontal lobe, with mild subarachnoid hemorrhage. 4. Acute renal failure. 5. Leukocytosis. 6. Cellulitis of lower extremities. 7. Anemia. 8. Atrial fibrillation, on Eliquis. 9. Hypokalemia. 10. Diabetes mellitus. 11. Hypertension. RECOMMENDATIONS: 1. Monitor neuro status closely and avoid any sedatives. CT scan of the brain reviewed, which showed acute intraparenchymal hemorrhage in the left frontal lobe. We will repeat a CT brain without contrast in a.m. Continue with Keppra 500 mg IV q.12. The patient is status post Kcentra. Dr. Smith from neurosurgery was notified by the ED. 2. Continue oxygen and maintain sats above 92%. 3. Bronchodilators in the form of DuoNeb. 4. We will obtain a baseline chest x-ray. 5. Monitor heart rate and blood pressure and maintain MAP greater than 65 mmHg. Continue with Cardizem 180 mg daily, Lopressor 50 mg b.i.d. 6. We will obtain a 2-D echo to evaluate LV function. 7. Monitor renal function, I's and O's and avoid nephrotoxins. The patient was given an NS 500 mL bolus in the ED. We will give an additional 500 mL bolus and continue with IV hydration. We will hold diuretics for now as he appears dehydrated and with renal dysfunction. 8. We will obtain a renal ultrasound to rule out hydronephrosis. 9. Place on a clear liquid diet for now and Pepcid 20 mg daily for gastrointestinal prophylaxis. 10. Given leukocytosis and cellulitis of the lower extremities, we will start empiric antibiotics in the form of Zosyn and monitor for signs of infection, which include fever and WBC. We will obtain blood cultures x 2 sets. 11. Sliding scale insulin with Accu-Cheks for glycemic control. 12. Monitor CBC and coags. The patient is status post prothrombin complex concentrate in the ED. 13. The patient's TSH measured at 7.9 this afternoon. We will repeat a TSH level in a.m. along with free T4 and free T3 levels. 14. GI with Pepcid 20 mg daily and DVT prophylaxis with SCDs. 15. Further recommendations will be based on hospital course. MD BRANDI Ramos/david , 07:08 PM , 07:27 PM
[2018-08-19] MEDS: Senna/Docusate Sodium 8.6/50 MG Tablet PO SCH (20:22)
[2018-08-19] MEDS: Metoprolol Tartrate 50 MG Tablet PO SCH (20:22)
[2018-08-19] MEDS: Magnesium Oxide 400 MG Tablet PO SCH (20:22)
[2018-08-19] MEDS: Insulin NovoLOG Aspart Correctional Sugar Inj SQ SCH (20:54)
[2018-08-19] MEDS: Piperacil/Tazo 3.375 GM Premix 50 ML IV.SIG SCH (21:21)
--- NOTE | 2018-08-19 22:05 | ECG ---
Date Performed: 08/19/2018 Time Performed: 15:43:21 PTAGE: 77 years EKG: ATRIAL FIBRILLATION WITH RAPID VENTRICULAR RESPONSE WITH ABERRANT CONDUCTION MARKED RIGHT A XIS DEVIATION MODERATE INTRAVENTRICULAR CONDUCTION DELAY NONSPECIFIC ST & T-WAVE ABNORMALITY ABNORMAL ECG PREVIOUS TRACING : 12/30/2015 14.37 Compared to previous tracing, SR no longer present DOCTOR: Iva Mann Interpretating Date/Time 08/19/2018 22:04:47
--- NOTE | 2018-08-19 23:22 | US ---
EXAM DATE: 08/19/2018 12:00 AM EDT AGE/SEX: 77 years / Male INDICATIONS: Elevated lab values. CLINICAL DATA: This is the patient's initial encounter. Patient reports that signs and symptoms have been present for 1 day and indicates a pain score of 0/10. MEDICAL/SURGICAL HISTORY: . Atrial fibrillation. Diabetes. GOUT. None. COMPARISON: [facility], CT SCANOGRAM, 07/13/2011. . MEASUREMENTS: Right Kidney:__11.0 x 4.5 x 5.3 cm Left Kidney:__11.2 x 5.0 x 5.8 cm FINDINGS: Right Kidney: Small echogenic focus near in the mid right kidney measuring up to 3 mm. No mass or hyd ronephrosis. Left Kidney: Normal echotexture and cortical thickness. No mass or hydronephrosis. Bladder: Decompressed. Not well evaluated. Other: Small amount of ascites. CONCLUSION: 1. 3 mm probable nonobstructing calyceal calculus in the mid right kidney. 2. No sonographic evidence for obstructive uropathy. 3. Small amount of ascites with fluid noted primarily along the inferior margin of the liver. Electronically signed by: Hector Pablo MD 08/19/2018 11:21 PM EDT
[2018-08-20] MEDS: Insulin NovoLOG Aspart Correctional Sugar Inj SQ SCH ×5 (01:32→21:17)
[2018-08-20] MEDS ORDERED: Chlorhexidine Gluconate 2% 1 Pack (2 Cloths) TOPICAL PRN (04:00)
--- NOTE | 2018-08-20 04:20 | CT ---
EXAM DATE: 08/20/2018 3:16 AM EDT AGE/SEX: 77 years / Male INDICATIONS: Cephalgia. Follow up frontal lobe bleed after trauma CLINICAL DATA: This is the patient's subsequent encounter. Patient reports that signs and symptoms h ave been present for 2 days and indicates a pain score of 10/10. MEDICAL/SURGICAL HISTORY: None. None. RADIATION DOSE: 66.34 CTDI (mGy) COMPARISON: [facility], CT HEAD W/O CONTRAST, 08/19/2018. . TECHNIQUE: CT of the head without contrast. Using automated exposure control and adjustment of the mA and/or kV according to patient size, radiation dose was kept as low as reasonably achievable to ob tain optimal diagnostic quality images. DICOM format image data is available electronically for revi ew and comparison. FINDINGS: Cerebrum: Involving the left frontal lobe intraparenchymal hemorrhage measuring up to 1.6 cm with rueda rrounding edema. There is mild associated mass effect. Evolving mild subarachnoid blood products ante riorly in the left frontal mid to high convexities. Ventricles are midline and stable in size. Modera te diffuse cerebral atrophy. No intercurrent new hemorrhage. Posterior Fossa: The cerebellum and brainstem are intact. The 4th ventricle is midline. The cerebe llopontine angle is unremarkable. Extracranial: The visualized portion of the orbits is intact. Skull: The calvaria is intact. No evidence of skull fracture. CONCLUSION: 1. Evolving left frontal lobe intraparenchymal hemorrhage with very small amount of evolving subarac hnoid hemorrhage in the left frontal mid to high convexities. 2. No midline shift, hydrocephalus or new intercurrent hemorrhage. . Electronically signed by: Hector Pablo MD 08/20/2018 4:19 AM EDT
[2018-08-20 04:47] LABS: Baso # (Auto) 0.1 th/mm3 (0.0-0.2); Baso % (Auto) 0.5 % (0.0-2.0); Eos # (Auto) 0.3 th/mm3 (0.0-0.4); Hematocrit 28.3 % (39.0-51.0); Hemoglobin 9.3 gm/dL (13.0-17.0); Lymph # (Auto) 0.8 th/mm3 (1.0-4.8); Lymph % (Auto) 6.3 % (9.0-44.0); Mean Corpuscular HGB Conc 32.9 % (32.0-36.0); Mean Corpuscular Hemoglobin 34.8 pg (27.0-34.0); Mean Corpuscular Volume 105.8 fL (80.0-100.0); Mean Platelet Volume 8.6 fL (7.0-11.0); Mono % (Auto) 7.9 % (0.0-8.0); Neut # (Auto) 10.8 th/mm3 (1.8-7.7); Neut % (Auto) 83.3 % (16.0-70.0); Platelet Count 191 th/mm3 (150-450); Red Blood Count 2.67 mil/mm3 (4.50-5.90); Red Cell Distribution Width 16.5 % (11.6-17.2); White Blood Count 12.9 th/mm3 (4.0-11.0)
[2018-08-20 05:06] LABS: Alanine Aminotransferase 9 U/L (12-78); Albumin 2.9 g/dL (3.4-5.0); Anion Gap 11 meq/L (5-15); Aspartate Aminotransferase 15 U/L (15-37); Blood Urea Nitrogen 71 mg/dL (7-18); Calcium 8.2 mg/dL (8.5-10.1); Carbon Dioxide 32.3 meq/L (21.0-32.0); Chloride 95 meq/L (98-107); Glomerular Filtration Rate 34 mL/min (>89); Glucose,Random 90 mg/dL (74-106); Potassium 3.1 meq/L (3.5-5.1); Sodium 138 meq/L (136-145)
[2018-08-20 05:16] LABS: Alkaline Phosphatase 76 U/L (45-117); Free T4 (Free Thyroxine) 1.31 ng/dL (0.76-1.46); Total Protein 6.8 g/dL (6.4-8.2)
[2018-08-20] MEDS: Potassium Chlor 10 mEq Premix 10 MEQ/100 ML PIGGYBACK IV.SIG SCH (05:33)
[2018-08-20] MEDS: Chlorhexidine Gluconate 2% 1 Pack (2 Cloths) TOPICAL SCH (05:34)
[2018-08-20] MEDS: Piperacil/Tazo 3.375 GM Premix 50 ML IV.SIG SCH ×3 (07:24→20:39)
--- NOTE | 2018-08-20 07:30 | P.PNCC ---
Subjective Subjective Remarks/Hospital Course: The patient is a 77-year-old male with a past medical history of atrial fibrillation, on Eliquis, and multiple ablations in the past, diabetes mellitus , hypertension, who presented to the [place] ED by EVAC status post fall and with altered mental status. Per ED records, the patient fell and hit his head yesterday at 11 p.m.; however, he refused to come to the hospital. Today at 3 p.m., the patient was found unresponsive on the floor in the kitchen. When his shook him, he was responsive, but not acting like himself. Blood was noted on the posterior scalp, and the patient denies any complaints. CT scan of the brain was obtained which showed an acute intraparenchymal hemorrhage in the left frontal lobe with mild surrounding subarachnoid hemorrhage and mild edema. No significant mass effect or midline shift. No evidence of acute fracture. Also, he had a cervical spine CT which showed degenerative changes without any evidence for acute fracture. His laboratory data is noted for leukocytosis with a WBC of 13.2, acute renal failure with a BUN of 79 and creatinine of 2.4 and hypokalemia with a potassium level of 2.8. His INR was 1.3. In the ED, the patient received prothrombin complex concentrate, 500 bolus of NS and potassium replacement. Dr. Smith from neurosurgery was notified and the patient was transferred to the surgical ICU at the [facility]. When seen, he is awake, alert, on 2 liters nasal cannula. His current blood pressure is 139/67 with a pulse of 93 and a saturation of 97%. He denies any chest pain; however, he reports occasional shortness of breath. The patient denies any orthopnea or PND; however, he reports edema of his lower extremities. Furthermore, he denies any nausea, vomiting or abdominal pain. Subjective 3: Resting comfortably in bed on nasal cannula in no acute distress. No focal deficits noted neurologic on examination. Blood pressure low. CT brain this a.m. revealed evolving left frontal operculum hemorrhage with tiny subarachnoid hemorrhage. No shift. No seizure activity overnight. Objective Vital Signs / I&O: Vital Signs 08/19/18 15:46 08/19/18 16:22 08/19/18 17:15 Temperature 98.2 F Pulse Rate 104 H 85 86 Respiratory Rate 24 18 18 Blood Pressure 123/62 110/56 L 118/63 Pulse Oximetry 94 L 100 98 08/19/18 17:17 08/19/18 17:33 08/19/18 20:00 Temperature 98.5 F Pulse Rate 73 70 Respiratory Rate 18 12 Blood Pressure 115/60 115/57 L Pulse Oximetry 97 93 L 97 08/20/18 00:00 08/20/18 04:00 Temperature 98.1 F 97.9 F Pulse Rate 61 74 Respiratory Rate 13 12 Blood Pressure 107/58 L 116/52 L Pulse Oximetry 98 95 Intake & Output 08/19/18 08/20/18 08/20/18 18:59 06:59 18:59 Intake Total 380.0 / 380.0 255 / 255 Output Total 150 / 150 Balance 230.0 / 230.0 255 / 255 Weight 92 kg Intake: IV 380.0 / 380.0 255 / 255 Zosyn 3.375 GM Premix 50 ML @ 50 / 50 100 mls/hr IV.SIG Q8H [facility] Rx#: [id number] KCl 10 mEq Premix Inj 10 meq In 100.0 / 100.0 100 / 100 100 ml @ 100 mls/hr IV.SIG Q1H [facility] Rx#:[id number] Kcentra Inj 4,500 UNIT In Bag/ 180 / 180 Syringe 1 EACH @ 500 mls/hr IV. SIG ONCE ONE Rx#:[id number] Keppra 1000 mg/100 mL Premix 100 / 100 100 ML @ 400 mls/hr IV.SIG ONCE ONE Rx#:[id number] Keppra Inj 500 MG In NS Inj 100 105 / 105 ML @ 400 mls/hr IV.SIG Q12H [facility] Rx#:[id number] Output: Urine Amount (Catheter) 150 / 150 Indwelling Urethral Catheter 150 / 150 Result Diagrams: 08/20/18 03:45 08/20/18 03:43 Other Results: Blood cultures x2 pending 08/19 Imaging: Abdomen/Bladder Ultrasound 08/19/18 00:00 CONCLUSION: 1. 3 mm probable nonobstructing calyceal calculus in the mid right kidney. 2. No sonographic evidence for obstructive uropathy. 3. Small amount of ascites with fluid noted primarily along the inferior margin of the liver. Cervical Spine CT 08/19/18 15:46 CONCLUSION: 1. Degenerative changes and DISH without evidence for acute fracture or listhesis. Head CT 08/19/18 15:46 CONCLUSION: 1. Acute intraparenchymal hemorrhage in the left frontal lobe with apparent mild surrounding subarachnoid hemorrhage and mild edema. There is no significant mass effect or midline shift. 2. Diffuse atrophic change commensurate with age. 3. No evidence of acute fracture. . Chest X-Ray 08/19/18 18:45 CONCLUSION: Mild failure. Head CT 08/20/18 05:00 CONCLUSION: 1. Evolving left frontal lobe intraparenchymal hemorrhage with very small amount of evolving subarachnoid hemorrhage in the left frontal mid to high convexities. 2. No midline shift, hydrocephalus or new intercurrent hemorrhage. . Objective Remarks: GENERAL: This is a 77-year-old male currently resting in bed in no acute distress SKIN: Warm and dry. Laceration of right ear noted. Some erythema noted to bilateral lower extremities HEAD: Atraumatic. Normocephalic. EYES: Pupils equal and round. No scleral icterus. No injection or drainage. ENT: No nasal bleeding or discharge. Mucous membranes pink and moist. NECK: Trachea midline. No JVD. CARDIOVASCULAR: IRR. S1, S2 no S4. Without murmur RESPIRATORY: Few crackles patient bases bilaterally. No wheezing.. GASTROINTESTINAL: Abdomen soft, non-tender, nondistended. Hypoactive bowel sounds are appreciated. MUSCULOSKELETAL: Extremities without clubbing, cyanosis, or edema. No obvious deformities. NEUROLOGICAL: Awake and alert. No obvious cranial nerve deficits. Motor grossly within normal limits. Five out of 5 muscle strength in the arms and legs. Normal speech. Hard of hearing PSYCHIATRIC: Appropriate mood and affect; insight and judgment normal. Assessment and Plan - Assessment and Plan Plan: Neuro/Psych: Acute left frontal intraparenchymal hemorrhage/traumatic with small left frontal subarachnoid hemorrhage Seizure Hard of hearing CT brain admission revealed 1.6 cm left frontal intraparenchymal hemorrhage with mild surrounding edema. Small left frontal subarachnoid hemorrhage. CT brain this a.m. reveals evolving left frontal intracranial hemorrhage with left frontal high convexity subarachnoid hemorrhage. No shift. Followed by Dr. Smith/neurosurgery On levetiracetam 500 mg IV twice daily Seizure precaution Neurochecks every 2 hours Acetaminophen 650 every 6 hours as needed fever Morphine sulfate 2 mg IV every 2 hours as needed breakthrough pain CV: History of atrial fibrillation status post ablation x2/failed Currently in atrial flutter rate controlled Coronary disease status post CABG Essential hypertension Hyperlipidemia Mitral regurgitation Metoprolol tartrate 50 mg twice daily Diltiazem 180 mg p.o. daily for hypertension. Will switch to 30 mg 4 times daily in light of borderline blood pressures Currently atrial flutter currently rate controlled on diltiazem and Toprol as above. Prior history of Tikosyn use with failed ablations 2004. Has seen Dr. Hannah in the past with cardioversion in 2016 documented in the records with 200 J. Patient is on simvastatin 20 mg daily at home for dyslipidemia. We will restart bumetanide at 2 mg daily with metolazone 2.5 mg daily. Resp: Obstructive sleep apnea Pulmonary hypertension-PAP 41 mmHg 2014 Nasal cannula to maintain saturations greater than equal to 92% Incentive spirometry while awake CPAP at night 12 mmH Holding sildenafil 20 mg 3 times daily in light of intracranial hemorrhage as above GI: Sigmoid diverticulosis Hypoalbuminemia History of colonic perforation status post resection/colostomy with revision Okay for ADA diet Famotidine for GI prophylax Docusate sodium/senna 1 tablet twice daily for bowel regimen : No indication for Fields catheter Endo: Diabetes mellitus type 2 Gout Elevated TSH with low free T3. Normal T4. Sliding scale insulin Accu-Cheks AC/at bedtime to maintain euglycemia/low regimen of aspart insulin Holding glipizide 7.5 mg twice daily. Continue allopurinol at renally dose 100 mg daily Likely will need to be started on levothyroxine likely as an outpatient Renal: Acute kidney injury Right kidney calcified calyx without obstruction or hydronephrosis Renal ultrasound with right kidney calcified calyx as above. No obstruction or hydronephrosis. Creatinine currently 1.9. Avoid nephrotoxic drugs. Okay to slowly restart diuretics Hold IV fluids Recheck BMP in a.m. 08/21 Heme: Leukocytosis Macrocytic anemia History of melanoma status post excision Prior history of apixaban use status post 4500 units PCC in ED 08/19 Monitor CBC daily. Follow trends. No indication for transfusion of blood products at this time ID: Possible bilateral lower extremity cellulitis Blood cultures x2 -08/20 pending Currently Pipracil/tazobactam. Adjust renally as indicated dosage and Doppler bilateral lower extremities pending per Received 0.5 mg IM TD in ED MSK: PT evaluate and treat FEN: Hypokalemia Replace electrolytes as clinically indicated per ICU likely protocol. Start potassium chloride 20 mEq twice daily Access: -Utilize peripheral IV. Central line if indicated Prophylaxis -GI -famotidine -DVT -SCD/pharmacological prophylaxis when okay with neurosurgery Level 2 follow-up Code Status: Full code Discussed Condition With: Patient. ISC RN. CARE plan discussed and all questions answered.
[2018-08-20] MEDS ORDERED: Labetalol HCl Inj 100 MG/20 ML Vial IV.PUSH PRN (07:32)
[2018-08-20] MEDS ORDERED: niCARdipine Inj 25 MG in Sodium Chlor 0.9% Inj 240 ML IV.CONT PRN (07:33)
[2018-08-20] MEDS ORDERED: Sod Chloride 0.9% Inj 1,000 ML IV.SIG SCH (09:00)
[2018-08-20] MEDS ORDERED: metOLazone 5 MG Tablet PO SCH (09:00)
[2018-08-20] MEDS ORDERED: DILTIAZEM HCL PO SCH (09:00)
[2018-08-20] MEDS ORDERED: dilTIAZem CD 180 MG Capsule PO SCH (09:00)
--- NOTE | 2018-08-20 09:09 | US ---
EXAM DATE: 08/20/2018 12:00 AM EDT AGE/SEX: 77 years / Male INDICATIONS: Bilateral leg swelling. CLINICAL DATA: This is the patient's initial encounter. Patient reports that signs and symptoms have been present for > 1 year and indicates a pain score of 0/10. MEDICAL/SURGICAL HISTORY: Diabetes. Hypertension. Afib. Gout. Intraparenchymal hemorrhage. Hyp erlipidemia. . Total knee replacement, right. AICD placement. Cardiac ablations. Bowel resection. COMPARISON: No prior exams available for comparison. TECHNIQUE: Venous ultrasound of both lower extremities was performed from the inguinal ligament to t he proximal calf. Real-time, color Doppler and spectral tracing, compression and augmentation techni ques were used. FINDINGS: Right Leg: Normal compression of the deep venous system from the inguinal region to the proximal juan f. No echogenic clot is seen. Normal response of the venous system to augmentation and respiration. M ultiple inguinal lymph nodes Left Leg: Normal compression of the deep venous system from the inguinal region to the proximal calf . No echogenic clot is seen. Normal response of the venous system to augmentation and respiration. Other: None. CONCLUSION: 1. Negative for deep venous thrombosis. 2. Multiple right inguinal lymph nodes. Electronically signed by: Jorge Dickson MD 08/20/2018 9:08 AM EDT
--- NOTE | 2018-08-20 09:41 | P.PNNS ---
Subjective Interval history: f/u CT Brain completed this morning, awake, alert, feeling a bit better this morning. no new neuro complaints overnight. <NahidVickiePortia - Last Filed: 08/20/18 15:36> Physical Exam Vital signs: Vital Signs 08/19/18 15:46 08/19/18 16:22 08/19/18 17:15 Temperature 98.2 F Pulse Rate 104 H 85 86 Respiratory Rate 24 18 18 Blood Pressure 123/62 110/56 L 118/63 Pulse Oximetry 94 L 100 98 08/19/18 17:17 08/19/18 17:33 08/19/18 20:00 Temperature 98.5 F Pulse Rate 73 70 Respiratory Rate 18 12 Blood Pressure 115/60 115/57 L Pulse Oximetry 97 93 L 97 08/20/18 00:00 08/20/18 04:00 08/20/18 08:00 Temperature 98.1 F 97.9 F Pulse Rate 61 74 60 Respiratory Rate 13 12 Blood Pressure 107/58 L 116/52 L Pulse Oximetry 98 95 95 08/20/18 08:12 Temperature Pulse Rate Respiratory Rate Blood Pressure Pulse Oximetry 95 Intake & Output 08/19/18 08/20/18 08/20/18 18:59 06:59 18:59 Intake Total 380.0 / 380.0 455 / 455 50 / 50 Output Total 150 / 150 1250 / 1250 Balance 230.0 / 230.0 -795 / -795 50 / 50 Weight 92 kg 92.7 kg Intake: IV 380.0 / 380.0 255 / 255 50 / 50 Zosyn 3.375 GM Premix 50 ML @ 50 / 50 50 / 50 100 mls/hr IV.SIG Q8H [facility] Rx#: [id number] KCl 10 mEq Premix Inj 10 meq In 100.0 / 100.0 100 / 100 100 ml @ 100 mls/hr IV.SIG Q1H [facility] Rx#:[id number] Kcentra Inj 4,500 UNIT In Bag/ 180 / 180 Syringe 1 EACH @ 500 mls/hr IV. SIG ONCE ONE Rx#:[id number] Keppra 1000 mg/100 mL Premix 100 / 100 100 ML @ 400 mls/hr IV.SIG ONCE ONE Rx#:[id number] Keppra Inj 500 MG In NS Inj 100 105 / 105 ML @ 400 mls/hr IV.SIG Q12H [facility] Rx#:[id number] Oral 200 / 200 Output: Urine 1250 / 1250 Urine Amount (Catheter) 150 / 150 Indwelling Urethral Catheter 150 / 150 Other: Date of Last Bowel Movement 08/20/18 08/20/18 # Bowel Movements 1 Narrative: GENERAL: resting in bed in no acute distress SKIN: Warm and dry. Laceration of right ear noted. Some erythema noted to bilateral lower extremities HEAD: Normocephalic. Right facial ecchymoses. EYES: Pupils equal and round. No scleral icterus. No injection or drainage. ENT: No nasal bleeding or discharge. Mucous membranes pink and moist. NECK: Trachea midline. No JVD. CARDIOVASCULAR: regular rate RESPIRATORY: Few crackles patient bases bilaterally. No wheezing.. GASTROINTESTINAL: Abdomen soft, non-tender MUSCULOSKELETAL: Extremities without clubbing, cyanosis, or edema. No obvious deformities. NEUROLOGICAL: Awake and alert and oriented x 3. No obvious cranial nerve deficits. Motor grossly within normal limits, right shoulder ROM limited from old clavicle injury. Normal speech. Hard of hearing PSYCHIATRIC: Appropriate mood and affect; insight and judgment normal. - Urinary Catheter Management Indwelling Urethral Catheter Cath placed during this visit: yes Reason for continuing: Acute urinary retention Insertion date: 08/19/18 Insertion time: 16:25 <Portia Whitfield - Last Filed: 08/20/18 15:36> Vital signs: Intake & Output 08/23/18 08/24/18 08/24/18 18:59 06:59 18:59 Other: Date of Last Bowel Movement 08/23/18 Narrative: GENERAL: resting in bed in no acute distress SKIN: Warm and dry. Laceration of right ear noted. Some erythema noted to bilateral lower extremities HEAD: Normocephalic. Right facial ecchymoses. EYES: Pupils equal and round. No scleral icterus. No injection or drainage. ENT: No nasal bleeding or discharge. Mucous membranes pink and moist. NECK: Trachea midline. No JVD. CARDIOVASCULAR: regular rate RESPIRATORY: Few crackles patient bases bilaterally. No wheezing.. GASTROINTESTINAL: Abdomen soft, non-tender MUSCULOSKELETAL: Extremities without clubbing, cyanosis, or edema. No obvious deformities. NEUROLOGICAL: Awake and alert and oriented x 3. No obvious cranial nerve deficits. Motor grossly within normal limits, right shoulder ROM limited from old clavicle injury. Normal speech. Hard of hearing PSYCHIATRIC: Appropriate mood and affect; insight and judgment normal. - Urinary Catheter Management Indwelling Urethral Catheter Cath placed during this visit: no <Orlando Remy - Last Filed: 08/24/18 14:49> Assessment and Plan - Plan 77yoM who fell with left frontal traumatic contusion on eliquis (reversed), possible seizure like activity. stable f/u CT Brain 08/20/18 Plan: f/u CT Brain this morning reviewed nonsurgical management cont keppra 500 bid cont neuro checks <Portia Whitfield - Last Filed: 08/20/18 15:36> - Plan Neuro: Continue neuro checks in a serial fashion. Nonsurgical management of SDH Watch for seizure activity Pulmonary: aggressive pulmonary toilette, nasotracheal suction, and breathing treatments with nebulizers. Daily PT and OT Renal: Continue to monitor closely urine output, BUN and creatinine Endocrine: Continue to Monitor serial Acu checks and SSI as needed in detail ID continue to monitor for signs of infection Continue Protonix for stress ulcer prophylaxis Continue Ten hose and SCD's for DVT prophylaxis Further recommendations will be provided depending on the patient's clinical evaluation and follow up studies. The exam, history, and the medical decision-making described in the above note were completed with the assistance of the mid-level provider. I reviewed and agree with the findings presented. I attest that I had a [id number] encounter with the patient on the same day, and personally performed and documented my assessment and findings in the medical record. <Orlando Remy - Last Filed: 08/24/18 14:49>
[2018-08-20] MEDS: Famotidine 20 MG Tablet PO SCH (09:57)
[2018-08-20] MEDS: dilTIAZem 30 MG Tablet PO SCH ×4 (09:57→20:40)
[2018-08-20] MEDS: Senna/Docusate Sodium 8.6/50 MG Tablet PO SCH ×3 (09:57→21:17)
[2018-08-20] MEDS: metOLazone 5 MG Tablet PO SCH (09:57)
[2018-08-20] MEDS: Allopurinol 100 MG Tablet PO SCH (09:57)
[2018-08-20] MEDS: Magnesium Oxide 400 MG Tablet PO SCH ×2 (09:58→20:39)
[2018-08-20] MEDS: Metoprolol Tartrate 50 MG Tablet PO SCH ×2 (09:58→20:40)
--- NOTE | 2018-08-20 15:40 | ECHRPT ---
Indication: AFIB AND FLUTTER CONCLUSIONS Normal left ventricular size. Wall thickness is normal. The left ventricular systolic function is low normal with an estimated ejection fraction in the rang e of 50- 55%. The right ventriclar size is upper limits of normal. The right atrial size is [id number] dilated. Qisvjgpq-qt-vwxcbx mitral valve regurgitation. Severe thickening of the mitral valve leaflets. Calcification of both mitral valve leaflets. Moderate thickening of the aortic valve leaflets. There is severe tricuspid regurgitation. The estimated pulmonary arterial pressure is 63 mmHg. BP: / HR: Rhythm: MEASUREMENTS (Male / Female) Normal Values Technical Quality: 2D ECHO LV Diastolic Diameter PLAX 5.3 cm 4.2 - 5.9 / 3.9 - 5.3 cm LV Systolic Diameter PLAX 4.0 cm IVS Diastolic Thickness 1.1 cm 0.6 - 1.0 / 0.6 - 0.9 cm LVPW Diastolic Thickness 1.3 cm 0.6 - 1.0 / 0.6 - 0.9 cm LV Relative Wall Thickness 0.5 RV Internal Dim ED PLAX 4.2 cm LVOT Diameter 1.6 cm Aortic Root Diameter 3.1 cm LA Systolic Diameter LX 4.2 cm 3.0 - 4.0 / 2.7 - 3.8 cm LV Ejection Fraction MOD 4C 48.6 % LV Ejection Fraction 4C AL 51.7 % M-MODE Aortic Root Diameter MM 3.0 cm LA Systolic Diameter MM 5.3 cm LA Ao Ratio MM 1.8 AV Cusp Separation MM 1.5 cm DOPPLER AV Peak Velocity 179.0 cm/s AV Peak Gradient 12.8 mmHg LVOT Peak Velocity 75.5 cm/s LVOT Peak Gradient 2.3 mmHg AV Area Cont Eq pk 0.8 cm Mitral E Point Velocity 137.0 cm/s Mitral A Point Velocity 37.0 cm/s Mitral E to A Ratio 3.7 LV E' Lateral Velocity 6.9 cm/s Mitral E to LV E' Lateral Ratio 19.8 LV E' Septal Velocity 2.9 cm/s Mitral E to LV E' Septal Ratio 47.6 TR Peak Velocity 287.3 cm/s TR Peak Gradient 33.0 mmHg Right Atrial Pressure 10.0 mmHg Pulmonary Artery Systolic Pressu 43.0 mmHg Right Ventricular Systolic Press 43.0 mmHg PV Peak Velocity 79.9 cm/s PV Peak Gradient 2.6 mmHg FINDINGS LEFT VENTRICLE Normal left ventricular size. Wall thickness is normal. The left ventricular systolic function is low normal with an estimated ejection fraction in the rang e of 50- 55%. RIGHT VENTRICLE The right ventriclar size is upper limits of normal. LEFT ATRIUM The left atrial size is normal. RIGHT ATRIUM The right atrial size is lgnvsxkw-gw-dlqyqxvy dilated. ATRIAL SEPTUM Normal atrial septal thickness without atrial level shunting by limited color doppler interrogation. AORTA The aortic root and proximal ascending aorta are normal in size on limited imaging. MITRAL VALVE Dzfynhew-hj-vivoox mitral valve regurgitation. Severe thickening of the mitral valve leaflets. Calcification of both mitral valve leaflets. AORTIC VALVE Moderate thickening of the aortic valve leaflets. TRICUSPID VALVE There is severe tricuspid regurgitation. The estimated pulmonary arterial pressure is 63 mmHg. PULMONARY VALVE No pulmonary valve regurgitation or stenosis. VESSELS The inferior vena cava is normal in size. PERICARDIUM No pericardial effusion. Matty Terrell MD, FACC, [facility] [place] (Electronically Signed) Final Date:20 August 2018 15:39
[2018-08-20 20:33] LABS: INR 1.3 Ratio; Prothrombin Time 12.7 sec (9.8-11.6)
[2018-08-21] MEDS: Chlorhexidine Gluconate 2% 1 Pack (2 Cloths) TOPICAL SCH (04:25)
[2018-08-21 05:08] LABS: Baso # (Auto) 0.1 th/mm3 (0.0-0.2); Baso % (Auto) 0.8 % (0.0-2.0); Eos # (Auto) 0.2 th/mm3 (0.0-0.4); Eos % (Auto) 1.3 % (0.0-4.0); Hematocrit 28.5 % (39.0-51.0); Hemoglobin 9.5 gm/dL (13.0-17.0); Lymph % (Auto) 6.3 % (9.0-44.0); Mean Corpuscular HGB Conc 33.3 % (32.0-36.0); Mean Corpuscular Hemoglobin 34.9 pg (27.0-34.0); Mean Corpuscular Volume 104.6 fL (80.0-100.0); Mean Platelet Volume 8.7 fL (7.0-11.0); Mono # (Auto) 1.3 th/mm3 (0.0-0.9); Mono % (Auto) 8.3 % (0.0-8.0); Neut # (Auto) 12.6 th/mm3 (1.8-7.7); Neut % (Auto) 83.3 % (16.0-70.0); Platelet Count 195 th/mm3 (150-450); Red Blood Count 2.73 mil/mm3 (4.50-5.90); Red Cell Distribution Width 16.7 % (11.6-17.2); White Blood Count 15.1 th/mm3 (4.0-11.0)
[2018-08-21 05:11] LABS: Alanine Aminotransferase 9 U/L (12-78); Phosphorus 3.1 mg/dL (2.5-4.9)
[2018-08-21 05:13] LABS: Alkaline Phosphatase 73 U/L (45-117); Total Protein 7.1 g/dL (6.4-8.2)
[2018-08-21 05:17] LABS: Albumin 2.8 g/dL (3.4-5.0); Anion Gap 13 meq/L (5-15); Aspartate Aminotransferase 19 U/L (15-37); Blood Urea Nitrogen 70 mg/dL (7-18); Calcium 8.6 mg/dL (8.5-10.1); Carbon Dioxide 30.1 meq/L (21.0-32.0); Chloride 93 meq/L (98-107); Glomerular Filtration Rate 33 mL/min (>89); Glucose,Random 110 mg/dL (74-106); Magnesium 1.6 mg/dL (1.5-2.5); Potassium 3.3 meq/L (3.5-5.1); Sodium 136 meq/L (136-145)
[2018-08-21] MEDS: Piperacil/Tazo 3.375 GM Premix 50 ML IV.SIG SCH ×3 (06:16→17:26)
[2018-08-21] MEDS: metOLazone 5 MG Tablet PO SCH (08:48)
[2018-08-21] MEDS: Allopurinol 100 MG Tablet PO SCH (09:12)
[2018-08-21] MEDS: Magnesium Oxide 400 MG Tablet PO SCH ×2 (09:12→21:17)
[2018-08-21] MEDS: dilTIAZem 30 MG Tablet PO SCH ×4 (09:13→21:12)
[2018-08-21] MEDS: Famotidine 20 MG Tablet PO SCH (09:13)
[2018-08-21] MEDS: Insulin NovoLOG Aspart Correctional Sugar Inj SQ SCH ×4 (09:13→21:37)
[2018-08-21] MEDS: Metoprolol Tartrate 50 MG Tablet PO SCH ×2 (09:13→21:03)
[2018-08-21] MEDS: Senna/Docusate Sodium 8.6/50 MG Tablet PO SCH ×2 (09:13→21:13)
--- NOTE | 2018-08-21 10:35 | P.PNCC ---
Subjective Subjective Remarks/Hospital Course: The patient is a 77-year-old male with a past medical history of atrial fibrillation, on Eliquis, and multiple ablations in the past, diabetes mellitus , hypertension, who presented to the [facility] ED by EVAC status post fall and with altered mental status. Per ED records, the patient fell and hit his head yesterday at 11 p.m.; however, he refused to come to the hospital. Today at 3 p.m., the patient was found unresponsive on the floor in the kitchen. When his shook him, he was responsive, but not acting like himself. Blood was noted on the posterior scalp, and the patient denies any complaints. CT scan of the brain was obtained which showed an acute intraparenchymal hemorrhage in the left frontal lobe with mild surrounding subarachnoid hemorrhage and mild edema. No significant mass effect or midline shift. No evidence of acute fracture. Also, he had a cervical spine CT which showed degenerative changes without any evidence for acute fracture. His laboratory data is noted for leukocytosis with a WBC of 13.2, acute renal failure with a BUN of 79 and creatinine of 2.4 and hypokalemia with a potassium level of 2.8. His INR was 1.3. In the ED, the patient received prothrombin complex concentrate, 500 bolus of NS and potassium replacement. Dr. Smith from neurosurgery was notified and the patient was transferred to the surgical ICU at the [facility]. When seen, he is awake, alert, on 2 liters nasal cannula. His current blood pressure is 139/67 with a pulse of 93 and a saturation of 97%. He denies any chest pain; however, he reports occasional shortness of breath. The patient denies any orthopnea or PND; however, he reports edema of his lower extremities. Furthermore, he denies any nausea, vomiting or abdominal pain. 10/3: Resting comfortably in bed on nasal cannula in no acute distress. No focal deficits noted neurologic on examination. Blood pressure low. CT brain this a.m. revealed evolving left frontal operculum hemorrhage with tiny subarachnoid hemorrhage. No shift. No seizure activity overnight. Subjective 104: Resting comfortably in bed with no acute distress. Again no focal neurological deficits. Blood pressure stable. No DVTs in bilateral lower extremities. Right inguinal lymphadenopathy noted. Objective Vital Signs / I&O: Vital Signs 08/20/18 12:00 08/20/18 16:00 08/20/18 20:00 Temperature 98.5 F 98.1 F 97.7 F Pulse Rate 61 72 65 Respiratory Rate 24 16 16 Blood Pressure 108/58 L 110/58 L 115/56 L Pulse Oximetry 97 93 L 95 08/20/18 20:36 08/21/18 00:00 08/21/18 04:00 Temperature 98.3 F 97.7 F Pulse Rate 72 72 Respiratory Rate 16 16 Blood Pressure 104/56 L 111/55 L Pulse Oximetry 99 95 95 08/21/18 08:00 Temperature Pulse Rate 87 Respiratory Rate Blood Pressure Pulse Oximetry 97 Intake & Output 08/20/18 08/21/18 08/21/18 18:59 06:59 18:59 Intake Total 955 / 955 255 / 255 Output Total 800 / 800 450 / 450 Balance 155 / 155 -195 / -195 Weight 96.5 kg Intake: IV 205 / 205 155 / 155 Zosyn 3.375 GM Premix 50 ML @ 100 / 100 50 / 50 100 mls/hr IV.SIG Q8H MAGALY Rx#: [id number] Keppra Inj 500 MG In NS Inj 100 105 / 105 105 / 105 ML @ 400 mls/hr IV.SIG Q12H MAGALY Rx#:[id number] Oral 750 / 750 100 / 100 Output: Urine 450 / 450 Urine Amount (Catheter) 800 / 800 Indwelling Urethral Catheter 800 / 800 Other: Date of Last Bowel Movement 08/20/18 08/21/18 # Bowel Movements 2 Result Diagrams: 08/21/18 03:29 08/21/18 03:29 Imaging: Abdomen/Bladder Ultrasound 08/19/18 00:00 CONCLUSION: 1. 3 mm probable nonobstructing calyceal calculus in the mid right kidney. 2. No sonographic evidence for obstructive uropathy. 3. Small amount of ascites with fluid noted primarily along the inferior margin of the liver. Cervical Spine CT 08/19/18 15:46 CONCLUSION: 1. Degenerative changes and DISH without evidence for acute fracture or listhesis. Head CT 08/19/18 15:46 CONCLUSION: 1. Acute intraparenchymal hemorrhage in the left frontal lobe with apparent mild surrounding subarachnoid hemorrhage and mild edema. There is no significant mass effect or midline shift. 2. Diffuse atrophic change commensurate with age. 3. No evidence of acute fracture. . Chest X-Ray 08/19/18 18:45 CONCLUSION: Mild failure. Venous Doppler Study 08/20/18 00:00 CONCLUSION: 1. Negative for deep venous thrombosis. 2. Multiple right inguinal lymph nodes. Head CT 08/20/18 05:00 CONCLUSION: 1. Evolving left frontal lobe intraparenchymal hemorrhage with very small amount of evolving subarachnoid hemorrhage in the left frontal mid to high convexities. 2. No midline shift, hydrocephalus or new intercurrent hemorrhage. . Objective Remarks: GENERAL: This is a 77-year-old male currently resting in bed in no acute distress SKIN: Warm and dry. Laceration of right ear noted. Large ecchymosis to right lateral neck, face per some erythema noted to bilateral lower extremities HEAD: Atraumatic. Normocephalic. EYES: Pupils equal and round. No scleral icterus. No injection or drainage. ENT: No nasal bleeding or discharge. Mucous membranes pink and moist. NECK: Trachea midline. No JVD. CARDIOVASCULAR: IRR. S1, S2 no S4. Without murmur RESPIRATORY: Few crackles patient bases bilaterally. No wheezing.. GASTROINTESTINAL: Abdomen soft, non-tender, nondistended. Hypoactive bowel sounds are appreciated. MUSCULOSKELETAL: Extremities without clubbing, cyanosis, or edema. No obvious deformities. NEUROLOGICAL: Awake and alert. No obvious cranial nerve deficits. Motor grossly within normal limits. Five out of 5 muscle strength in the arms and legs. Normal speech. Hard of hearing PSYCHIATRIC: Appropriate mood and affect; insight and judgment normal. Assessment and Plan - Assessment and Plan Plan: Neuro/Psych: Acute left frontal intraparenchymal hemorrhage/traumatic with small left frontal subarachnoid hemorrhage Seizure Hard of hearing CT brain admission revealed 1.6 cm left frontal intraparenchymal hemorrhage with mild surrounding edema. Small left frontal subarachnoid hemorrhage. CT brain this a.m. reveals evolving left frontal intracranial hemorrhage with left frontal high convexity subarachnoid hemorrhage. No shift. Followed by Dr. Smith/neurosurgery On levetiracetam 500 mg IV twice daily to be continued Seizure precaution Neurochecks every 2 hours Acetaminophen 650 every 6 hours as needed fever Morphine sulfate 2 mg IV every 2 hours as needed breakthrough pain CV: History of atrial fibrillation status post ablation x2/failed Currently in atrial flutter rate controlled Coronary disease status post CABG Essential hypertension Hyperlipidemia Mitral regurgitation Metoprolol tartrate 50 mg twice daily Diltiazem 180 mg p.o. daily for hypertension his home medication. Will switch to 30 mg 4 times daily in light of borderline blood pressures Currently atrial flutter currently rate controlled on diltiazem and metoprolol as above. Prior history of Tikosyn use with failed ablations 2004. Has seen Dr. Hannah in the past with cardioversion in 2016 documented in the records with 200 J. Patient is on simvastatin 20 mg daily at home for dyslipidemia. Continue bumetanide at 2 mg daily with metolazone 2.5 mg daily. On 4 mg twice daily and 5 mg respectively daily at home Resp: Obstructive sleep apnea Pulmonary hypertension-PAP 41 mmHg 2014 Nasal cannula to maintain saturations greater than equal to 92% Incentive spirometry while awake CPAP at night 12 mmH Holding sildenafil 20 mg 3 times daily in light of intracranial hemorrhage as above GI: Sigmoid diverticulosis Hypoalbuminemia History of colonic perforation status post resection/colostomy with revision Okay for ADA diet Famotidine for GI prophylax Docusate sodium/senna 1 tablet twice daily for bowel regimen : No indication for Fields catheter Endo: Diabetes mellitus type 2 Gout Elevated TSH with low free T3. Normal T4. Sliding scale insulin Accu-Cheks AC/at bedtime to maintain euglycemia/low regimen of aspart insulin Holding glipizide 7.5 mg twice daily. Continue allopurinol at renally dose 100 mg daily Likely will need to be started on levothyroxine likely as an outpatient Renal: Acute kidney injury Right kidney calcified calyx without obstruction or hydronephrosis Renal ultrasound with right kidney calcified calyx as above. No obstruction or hydronephrosis. Creatinine currently 1.95. Avoid nephrotoxic drugs. Okay to slowly restart diuretics Hold IV fluids Recheck BMP in a.m. 08/22 Heme: Leukocytosis Macrocytic anemia History of melanoma status post excision Prior history of apixaban use status post 4500 units PCC in ED 08/19 Monitor CBC daily. Follow trends. No indication for transfusion of blood products at this time ID: Possible bilateral lower extremity cellulitis Blood cultures x2 -08/20 pending Currently piperacillin l/tazobactam. Adjust renally as indicated dosage and Doppler bilateral lower extremities pending per Received 0.5 mg IM TD in ED MSK: PT evaluate and treat FEN: Hypokalemia Replace electrolytes as clinically indicated per ICU likely protocol. Start potassium chloride 20 mEq twice daily. Receiving additional 60 mEq p.o. today along with 2 g IV mag sulfate. Access: -Utilize peripheral IV. Central line if indicated Prophylaxis -GI -famotidine -DVT -SCD/pharmacological prophylaxis when okay with neurosurgery Level 2 follow-up. Stable from critical care medicine standpoint. Assign care to hospitalist in a.m. 08/22.
--- NOTE | 2018-08-21 11:01 | P.PNNS ---
Subjective Interval history: No acute events overnight Physical Exam Vital signs: Vital Signs 08/20/18 12:00 08/20/18 16:00 08/20/18 20:00 Temperature 98.5 F 98.1 F 97.7 F Pulse Rate 61 72 65 Respiratory Rate 24 16 16 Blood Pressure 108/58 L 110/58 L 115/56 L Pulse Oximetry 97 93 L 95 08/20/18 20:36 08/21/18 00:00 08/21/18 04:00 Temperature 98.3 F 97.7 F Pulse Rate 72 72 Respiratory Rate 16 16 Blood Pressure 104/56 L 111/55 L Pulse Oximetry 99 95 95 08/21/18 08:00 Temperature 98.4 F Pulse Rate 88 Respiratory Rate 18 Blood Pressure 118/56 L Pulse Oximetry 94 L Intake & Output 08/20/18 08/21/18 08/21/18 18:59 06:59 18:59 Intake Total 955 / 955 255 / 255 Output Total 800 / 800 450 / 450 Balance 155 / 155 -195 / -195 Weight 96.5 kg Intake: IV 205 / 205 155 / 155 Zosyn 3.375 GM Premix 50 ML @ 100 / 100 50 / 50 100 mls/hr IV.SIG Q8H MAGALY Rx#: [id number] Keppra Inj 500 MG In NS Inj 100 105 / 105 105 / 105 ML @ 400 mls/hr IV.SIG Q12H MAGALY Rx#:[id number] Oral 750 / 750 100 / 100 Output: Urine 450 / 450 Urine Amount (Catheter) 800 / 800 Indwelling Urethral Catheter 800 / 800 Other: Date of Last Bowel Movement 08/20/18 08/21/18 # Bowel Movements 2 Narrative: Opens eyes spontaneously PERRL EOMI Alert and oriented to self, place Follows commands x4 with full strength - Urinary Catheter Management Indwelling Urethral Catheter Cath placed during this visit: yes, but has since been removed by the nurse Reason for continuing: Decision to DC catheter Insertion date: 08/19/18 Insertion time: 16:25 Removal date: 08/21/18 Removal time: 04:00 Assessment and Plan - Plan 77 yo M who fell with left frontal traumatic contusion on eliquis (reversed) 08/19/18, possible seizure like activity. Repeat head CT from 08/20/18 stable. Plan: Neurologically stable. No surgical intervention indicated. Hold Eliquis Continue keppra 500 bid Continue neuro checks (ok for q4h)
[2018-08-21] MEDS: Mag Sulf 1 gm/100 ml Premix 100 ML IV.SIG SCH ×2 (11:25→13:48)
[2018-08-21] MEDS ORDERED: Influenza (Quadrivalent) Vaccine 0.5 ML Syringe IM ONE (15:00)
[2018-08-21 20:07] LABS: Hepatitis A IgM Antibody Nonreactive (Nonreactive); Hepatitits B Surface Antigen Nonreactive (Nonreactive)
[2018-08-22] MEDS: Piperacil/Tazo 3.375 GM Premix 50 ML IV.SIG SCH ×5 (00:44→23:57)
[2018-08-22 04:02] LABS: Baso # (Auto) 0.1 th/mm3 (0.0-0.2); Baso % (Auto) 0.8 % (0.0-2.0); Eos # (Auto) 0.3 th/mm3 (0.0-0.4); Eos % (Auto) 2.1 % (0.0-4.0); Hematocrit 29.7 % (39.0-51.0); Hemoglobin 9.8 gm/dL (13.0-17.0); Lymph # (Auto) 0.8 th/mm3 (1.0-4.8); Mean Corpuscular Hemoglobin 34.9 pg (27.0-34.0); Mean Corpuscular Volume 105.8 fL (80.0-100.0); Mean Platelet Volume 9.1 fL (7.0-11.0); Mono % (Auto) 7.6 % (0.0-8.0); Neut % (Auto) 83.5 % (16.0-70.0); Platelet Count 185 th/mm3 (150-450); Red Blood Count 2.81 mil/mm3 (4.50-5.90); Red Cell Distribution Width 16.9 % (11.6-17.2); White Blood Count 13.2 th/mm3 (4.0-11.0)
[2018-08-22] MEDS: Chlorhexidine Gluconate 2% 1 Pack (2 Cloths) TOPICAL SCH (04:17)
[2018-08-22 04:29] LABS: Anion Gap 12 meq/L (5-15); Blood Urea Nitrogen 67 mg/dL (7-18); Calcium 8.1 mg/dL (8.5-10.1); Carbon Dioxide 28.3 meq/L (21.0-32.0); Chloride 93 meq/L (98-107); Glomerular Filtration Rate 32 mL/min (>89); Glucose,Random 141 mg/dL (74-106); Magnesium 2.1 mg/dL (1.5-2.5); Phosphorus 3.1 mg/dL (2.5-4.9); Potassium 4.9 meq/L (3.5-5.1); Sodium 133 meq/L (136-145)
[2018-08-22 04:52] LABS: Vitamin B12 1191 pg/mL (193-986)
[2018-08-22] MEDS: Insulin NovoLOG Aspart Correctional Sugar Inj SQ SCH ×4 (09:34→22:07)
[2018-08-22] MEDS: Magnesium Oxide 400 MG Tablet PO SCH ×2 (09:38→21:47)
[2018-08-22] MEDS: Famotidine 20 MG Tablet PO SCH (09:38)
[2018-08-22] MEDS: Allopurinol 100 MG Tablet PO SCH (09:38)
[2018-08-22] MEDS: metOLazone 5 MG Tablet PO SCH (09:38)
[2018-08-22] MEDS: Senna/Docusate Sodium 8.6/50 MG Tablet PO SCH ×2 (09:38→22:08)
--- NOTE | 2018-08-22 09:39 | US ---
EXAM DATE: 08/22/2018 12:00 AM EDT AGE/SEX: 77 years / Male INDICATIONS: Elevated lab values. CLINICAL DATA: This is the patient's initial encounter. Patient reports that signs and symptoms have been present for 1 day and indicates a pain score of 0/10. MEDICAL/SURGICAL HISTORY: Diabetes. Atrial Fibrillation. Gout. Subarachnoid hemorrhage. Seizure . Mitral regurgitation. Hyperlipidemia. Sleep apnea. Diverticulosis. Pulmonary hypertension. CABG. A utomatic cardioverter/defibrillator. Cardiac ablations. Colon resection with colostomy and reversal. Skin cancer removal. COMPARISON: [facility] [place], KIDNEY/RENAL/BLADDER, 08/19/2018. . MEASUREMENTS: Liver:__ 19.8 cm. Common Bile Duct:__ 5mm. Right Kidney:__ 11.4 x 5.1 x 5.7 Not visualized.. FINDINGS: Liver: Liver is enlarged with increased echogenicity without ductal dilatation. Portal Vein: Hepatopedal flow seen in portal vein. Common Duct: No intraluminal mass or stone visualized. Gallbladder: Gallstone with gallbladder wall thickening Pancreas: The visualized portions are within normal limits Right Kidney: Cortical thinning. Other mild prominence of the spleen. CONCLUSION: 1. Echogenic liver without gallstones. 2. Normal common duct Electronically signed by: Jorge Dickson MD 08/22/2018 9:38 AM EDT
[2018-08-22] MEDS: dilTIAZem 30 MG Tablet PO SCH ×4 (09:40→21:46)
[2018-08-22] MEDS: Metoprolol Tartrate 50 MG Tablet PO SCH ×2 (09:40→21:46)
--- NOTE | 2018-08-22 10:06 | P.PNNS ---
Subjective Interval history: No acute events overnight. Physical Exam Vital signs: Vital Signs 08/21/18 11:00 08/21/18 12:00 08/21/18 16:00 Temperature 98.2 F 97.8 F Pulse Rate 73 64 Respiratory Rate 20 14 Blood Pressure 95/64 L 122/58 L Pulse Oximetry 97 93 L 92 L 08/21/18 20:00 08/21/18 22:21 08/22/18 00:00 Temperature 98.2 F 98.0 F Pulse Rate 76 70 Respiratory Rate 18 19 Blood Pressure 116/56 L 117/59 L Pulse Oximetry 92 L 100 100 08/22/18 04:00 08/22/18 07:59 08/22/18 08:00 Temperature 97.8 F 97.9 F Pulse Rate 74 84 Respiratory Rate 14 17 Blood Pressure 128/61 103/74 Pulse Oximetry 99 93 L 96 Intake & Output 08/21/18 08/22/18 08/22/18 18:59 06:59 18:59 Intake Total 780 / 780 1030 / 1030 Balance 780 / 780 1030 / 1030 Weight 96.3 kg Intake: IV 300 / 300 310 / 310 Magnesium Sulfate 1 gm/D5W 100 200 / 200 ml Premix 100 ML @ 100 mls/hr IV.SIG Q1H MAGALY Rx#:[id number] Zosyn 3.375 GM Premix 50 ML @ 100 / 100 100 / 100 100 mls/hr IV.SIG Q6H MAGALY Rx#: [id number] Keppra Inj 500 MG In NS Inj 100 210 / 210 ML @ 400 mls/hr IV.SIG Q12H MAGALY Rx#:[id number] Oral 480 / 480 720 / 720 Other: # Voids 2 2 Date of Last Bowel Movement 08/21/18 08/22/18 08/22/18 # Bowel Movements 2 2 Narrative: Opens eyes spontaneously PERRL EOMI Alert and oriented to self, place Follows commands x4 with full strength - Urinary Catheter Management Indwelling Urethral Catheter Cath placed during this visit: yes, but has since been removed by the nurse Reason for continuing: Decision to DC catheter Insertion date: 08/19/18 Insertion time: 16:25 Removal date: 08/21/18 Removal time: 04:00 Assessment and Plan - Plan 77 yo M who fell with left frontal traumatic contusion on eliquis (reversed) 08/19/18, possible seizure like activity. Repeat head CT from 08/20/18 stable. Plan: Neurologically stable. No surgical intervention indicated. Hold Eliquis for at least 2 weeks. Recommend repeat head CT in outpatient setting (Dr. Remy) prior to restarting Eliquis. Continue keppra 500 bid Continue neuro checks (ok for q4h) Ok for transfer to floor from neurosurgical perspective.
--- NOTE | 2018-08-22 13:31 | P.PN ---
Subjective Interval history: no complains of headache, very motivated telemetry a fib- rate controlled Physical Exam Vital signs: Vital Signs 08/21/18 16:00 08/21/18 20:00 08/21/18 22:21 Temperature 97.8 F 98.2 F Pulse Rate 64 76 Respiratory Rate 14 18 Blood Pressure 122/58 L 116/56 L Pulse Oximetry 92 L 92 L 100 08/22/18 00:00 08/22/18 04:00 08/22/18 07:59 Temperature 98.0 F 97.8 F Pulse Rate 70 74 Respiratory Rate 19 14 Blood Pressure 117/59 L 128/61 Pulse Oximetry 100 99 93 L 08/22/18 08:00 08/22/18 12:00 Temperature 97.9 F 97.6 F Pulse Rate 84 90 Respiratory Rate 17 14 Blood Pressure 103/74 123/57 L Pulse Oximetry 96 100 Intake & Output 08/21/18 08/22/18 08/22/18 18:59 06:59 18:59 Intake Total 780 / 780 1030 / 1030 Balance 780 / 780 1030 / 1030 Weight 96.3 kg Intake: IV 300 / 300 310 / 310 Magnesium Sulfate 1 gm/D5W 100 200 / 200 ml Premix 100 ML @ 100 mls/hr IV.SIG Q1H MAGALY Rx#:[id number] Zosyn 3.375 GM Premix 50 ML @ 100 / 100 100 / 100 100 mls/hr IV.SIG Q6H MAGALY Rx#: [id number] Keppra Inj 500 MG In NS Inj 100 210 / 210 ML @ 400 mls/hr IV.SIG Q12H MAGALY Rx#:[id number] Oral 480 / 480 720 / 720 Other: # Voids 2 2 Date of Last Bowel Movement 08/21/18 08/22/18 08/22/18 # Bowel Movements 2 2 Narrative: awake and alert, speech slow but clear anciteric oupils equal no nuchal rigidity lungs- no rales irregularly irregular rhythm abdomensoft, nontender extremiteis no edema grossly no sensory deficits mototr moves all extremiteis - Urinary Catheter Management Indwelling Urethral Catheter Cath placed during this visit: yes, but has since been removed by the nurse Reason for continuing: Decision to DC catheter Insertion date: 08/19/18 Insertion time: 16:25 Removal date: 08/21/18 Removal time: 04:00 Results - Labs CBC & Chem 7: 08/22/18 03:39 08/22/18 03:39 Laboratory Results - last 24 hr 08/21/18 08/21/18 08/21/18 17:40 17:40 17:40 WBC RBC Hgb Hct MCV MCH MCHC RDW Plt Count MPV Neut % (Auto) Lymph % (Auto) [place] % (Auto) Eos % (Auto) Baso % (Auto) Neut # (Auto) Lymph # (Auto) [place] # (Auto) Eos # (Auto) Baso # (Auto) WBC Differential Differential Comment Sodium Potassium Chloride Carbon Dioxide Anion Gap BUN Creatinine Estimated GFR POC Glucose Random Glucose Calcium Phosphorus Magnesium Ammonia 18 Total Creatine Kinase 35 L Vitamin B12 Folate Hepatitis A IgM Ab Nonreactive Hep Bs Antigen Nonreactive Hep B Core IgM Ab Nonreactive Hep C IgG Ab Nonreactive 08/21/18 08/21/18 08/22/18 17:41 21:22 03:39 WBC 13.2 H RBC 2.81 L Hgb 9.8 L Hct 29.7 L MCV 105.8 H MCH 34.9 H MCHC 33.0 RDW 16.9 Plt Count 185 MPV 9.1 Neut % (Auto) 83.5 H Lymph % (Auto) 6.0 L [place] % (Auto) 7.6 Eos % (Auto) 2.1 Baso % (Auto) 0.8 Neut # (Auto) 11.0 H Lymph # (Auto) 0.8 L [place] # (Auto) 1.0 H Eos # (Auto) 0.3 Baso # (Auto) 0.1 WBC Differential . Differential Comment Auto diff final Sodium Potassium Chloride Carbon Dioxide Anion Gap BUN Creatinine Estimated GFR POC Glucose 173 H 158 H Random Glucose Calcium Phosphorus Magnesium Ammonia Total Creatine Kinase Vitamin B12 Folate Hepatitis A IgM Ab Hep Bs Antigen Hep B Core IgM Ab Hep C IgG Ab 08/22/18 08/22/18 08/22/18 03:39 09:19 11:50 WBC RBC Hgb Hct MCV MCH MCHC RDW Plt Count MPV Neut % (Auto) Lymph % (Auto) [place] % (Auto) Eos % (Auto) Baso % (Auto) Neut # (Auto) Lymph # (Auto) [place] # (Auto) Eos # (Auto) Baso # (Auto) WBC Differential Differential Comment Sodium 133 L Potassium 4.9 D Chloride 93 L Carbon Dioxide 28.3 Anion Gap 12 BUN 67 H Creatinine 2.05 H Estimated GFR 32 L POC Glucose 147 H 209 H Random Glucose 141 H Calcium 8.1 L Phosphorus 3.1 Magnesium 2.1 Ammonia Total Creatine Kinase Vitamin B12 1191 H Folate Greater than 20.0 H Hepatitis A IgM Ab Hep Bs Antigen Hep B Core IgM Ab Hep C IgG Ab Microbiology 08/20/18 03:43 Blood - Peripheral Aerobic Blood Culture - Preliminary No growth in 2 days 08/20/18 03:43 Blood - Peripheral Anaerobic Blood Culture - Preliminary No growth in 2 days 08/20/18 03:48 Blood - Peripheral Aerobic Blood Culture - Preliminary No growth in 2 days 08/20/18 03:48 Blood - Peripheral Anaerobic Blood Culture - Preliminary No growth in 2 days - Imaging Impressions Liver Ultrasound 08/22/18 00:00 CONCLUSION: 1. Echogenic liver without gallstones. 2. Normal common duct Assessment and Plan - Plan Acute left frontal intraparenchymal hemorrhage/traumatic with small left frontal subarachnoid hemorrhage Seizure Hard of hearing CT brain admission revealed 1.6 cm left frontal intraparenchymal hemorrhage with mild surrounding edema. Small left frontal subarachnoid hemorrhage. CT brain this a.m. reveals evolving left frontal intracranial hemorrhage with left frontal high convexity subarachnoid hemorrhage. No shift. Followed by Dr. Smith/neurosurgery On levetiracetam 500 mg IV twice daily to be continued Seizure precaution Neurochecks every 2 hours Acetaminophen 650 every 6 hours as needed fever Morphine sulfate 2 mg IV every 2 hours as needed breakthrough pain CV: History of atrial fibrillation status post ablation x2/failed Currently in atrial flutter rate controlled Coronary disease status post CABG Essential hypertension Hyperlipidemia Mitral regurgitation Metoprolol tartrate 50 mg twice daily Diltiazem 180 mg p.o. daily for hypertension his home medication. Will switch to 30 mg 4 times daily in light of borderline blood pressures Currently atrial flutter currently rate controlled on diltiazem and metoprolol as above. Prior history of Tikosyn use with failed ablations 2004. Has seen Dr. Hannah in the past with cardioversion in 2016 documented in the records with 200 J. Patient is on simvastatin 20 mg daily at home for dyslipidemia. Continue bumetanide at 2 mg daily with metolazone 2.5 mg daily. On 4 mg twice daily and 5 mg respectively daily at home Resp: Obstructive sleep apnea Pulmonary hypertension-PAP 41 mmHg 2014 Nasal cannula to maintain saturations greater than equal to 92% Incentive spirometry while awake CPAP at night 12 mmH Holding sildenafil 20 mg 3 times daily in light of intracranial hemorrhage as above GI: Sigmoid diverticulosis Hypoalbuminemia History of colonic perforation status post resection/colostomy with revision Okay for ADA diet Famotidine for GI prophylax Docusate sodium/senna 1 tablet twice daily for bowel regimen : No indication for Fields catheter Endo: Diabetes mellitus type 2 Gout Elevated TSH with low free T3. Normal T4. Sliding scale insulin Accu-Cheks AC/at bedtime to maintain euglycemia/low regimen of aspart insulin Holding glipizide 7.5 mg twice daily. Continue allopurinol at renally dose 100 mg daily Likely will need to be started on levothyroxine likely as an outpatient Renal: Acute kidney injury Right kidney calcified calyx without obstruction or hydronephrosis Renal ultrasound with right kidney calcified calyx as above. No obstruction or hydronephrosis. Creatinine currently 1.95. Avoid nephrotoxic drugs. Okay to slowly restart diuretics Hold IV fluids Heme: Leukocytosis Macrocytic anemia History of melanoma status post excision Prior history of apixaban use status post 4500 units PCC in ED 08/19 Monitor CBC daily. Follow trends. No indication for transfusion of blood products at this time ID: Possible bilateral lower extremity cellulitis Blood cultures x2 -08/20 pending Currently piperacillin l/tazobactam. Adjust renally as indicated dosage and Doppler bilateral lower extremities pending per Received 0.5 mg IM TD in ED MSK: PT evaluate and treat FEN: Hypokalemia Replace electrolytes as clinically indicated per ICU likely protocol. Start potassium chloride 20 mEq twice daily. Receiving additional 60 mEq p.o. today along with 2 g IV mag sulfate. Access: -Utilize peripheral IV. Central line if indicated Prophylaxis -GI -famotidine -DVT -SCD/pharmacological prophylaxis when okay with neurosurgery
[2018-08-23] MEDS: Chlorhexidine Gluconate 2% 1 Pack (2 Cloths) TOPICAL SCH (04:17)
[2018-08-23] MEDS: Piperacil/Tazo 3.375 GM Premix 50 ML IV.SIG SCH ×2 (06:09→12:47)
[2018-08-23] MEDS: Insulin NovoLOG Aspart Correctional Sugar Inj SQ SCH ×2 (09:07→12:47)
[2018-08-23] MEDS: Metoprolol Tartrate 50 MG Tablet PO SCH (09:49)
[2018-08-23] MEDS: Magnesium Oxide 400 MG Tablet PO SCH (09:49)
[2018-08-23] MEDS: Senna/Docusate Sodium 8.6/50 MG Tablet PO SCH (09:49)
[2018-08-23] MEDS: dilTIAZem 30 MG Tablet PO SCH ×2 (09:49→12:46)
[2018-08-23] MEDS: Famotidine 20 MG Tablet PO SCH (09:49)
[2018-08-23] MEDS: Allopurinol 100 MG Tablet PO SCH (09:50)
--- NOTE | 2018-08-23 10:55 | P.PNNS ---
Subjective Interval history: No events, wishes to go home Physical Exam Vital signs: Vital Signs 08/22/18 12:00 08/22/18 16:00 08/22/18 20:00 Temperature 97.6 F 97.6 F 98.1 F Pulse Rate 90 77 78 Respiratory Rate 14 18 25 H Blood Pressure 123/57 L 133/58 L 130/59 L Pulse Oximetry 100 97 95 08/22/18 20:23 08/23/18 00:00 08/23/18 04:00 Temperature 97.7 F 97.9 F Pulse Rate 73 74 Respiratory Rate 14 14 Blood Pressure 112/64 121/68 Pulse Oximetry 94 L 100 98 08/23/18 07:26 Temperature Pulse Rate Respiratory Rate Blood Pressure Pulse Oximetry 100 Intake & Output 08/22/18 08/23/18 08/23/18 18:59 06:59 18:59 Intake Total 445 / 445 505 / 505 Balance 445 / 445 505 / 505 Weight 98.9 kg Intake: IV 205 / 205 205 / 205 Zosyn 3.375 GM Premix 50 ML @ 100 / 100 100 / 100 100 mls/hr IV.SIG Q6H MAGALY Rx#: [id number] Keppra Inj 500 MG In NS Inj 100 105 / 105 105 / 105 ML @ 400 mls/hr IV.SIG Q12H MAGALY Rx#:[id number] Oral 240 / 240 300 / 300 Other: # Voids 3 3 Date of Last Bowel Movement 08/22/18 08/23/18 # Bowel Movements 2 3 Narrative: Opens eyes spontaneously PERRL EOMI Alert and oriented to self, place Follows commands x4 with full strength - Urinary Catheter Management Indwelling Urethral Catheter Cath placed during this visit: yes, but has since been removed by the nurse Reason for continuing: Decision to DC catheter Insertion date: 08/19/18 Insertion time: 16:25 Removal date: 08/21/18 Removal time: 04:00 Assessment and Plan - Plan 77 yo M who fell with left frontal traumatic contusion on eliquis (reversed) 08/19/18, possible seizure like activity. Repeat head CT from 08/20/18 stable. Plan: Neurologically stable. No surgical intervention indicated. Ok to discharge home from neurosurgical perspective. Hold Eliquis for at least 2 weeks. Recommend repeat head CT in outpatient setting (Dr. Remy) prior to restarting Eliquis. Continue keppra 500 bid Continue neuro checks (ok for q4h)
[2018-08-23] MEDS: metOLazone 5 MG Tablet PO SCH (13:25)
--- NOTE | 2018-08-23 13:33 | P.PN ---
Subjective Interval history: awake and alert, wanting to go home seen with supportive she states their kids live nearby patient voidign telemetry- a fib- rate controlled Physical Exam Vital signs: Vital Signs 08/22/18 16:00 08/22/18 20:00 08/22/18 20:23 Temperature 97.6 F 98.1 F Pulse Rate 77 78 Respiratory Rate 18 25 H Blood Pressure 133/58 L 130/59 L Pulse Oximetry 97 95 94 L 08/23/18 00:00 08/23/18 04:00 08/23/18 07:26 Temperature 97.7 F 97.9 F Pulse Rate 73 74 Respiratory Rate 14 14 Blood Pressure 112/64 121/68 Pulse Oximetry 100 98 100 08/23/18 08:00 Temperature Pulse Rate 72 Respiratory Rate Blood Pressure Pulse Oximetry 100 Intake & Output 08/22/18 08/23/18 08/23/18 18:59 06:59 18:59 Intake Total 445 / 445 505 / 505 Balance 445 / 445 505 / 505 Weight 98.9 kg Intake: IV 205 / 205 205 / 205 Zosyn 3.375 GM Premix 50 ML @ 100 / 100 100 / 100 100 mls/hr IV.SIG Q6H MAGALY Rx#: [id number] Keppra Inj 500 MG In NS Inj 100 105 / 105 105 / 105 ML @ 400 mls/hr IV.SIG Q12H MAGALY Rx#:[id number] Oral 240 / 240 300 / 300 Other: # Voids 3 3 Date of Last Bowel Movement 08/22/18 08/23/18 08/23/18 # Bowel Movements 2 3 Narrative: awake and alert, speech slow but clear anciteric pupils equal chin- ecchymoses no nuchal rigidity lungs- no rales irregularly irregular rhythm abdomen soft, nontender extremitiess + edema, erythema improved, no DVT on doppler grossly no sensory deficits mototr moves all extremiteis - Urinary Catheter Management Indwelling Urethral Catheter Cath placed during this visit: yes, but has since been removed by the nurse Reason for continuing: Decision to DC catheter Insertion date: 08/19/18 Insertion time: 16:25 Removal date: 08/21/18 Removal time: 04:00 Results - Labs CBC & Chem 7: 08/22/18 03:39 08/22/18 03:39 Laboratory Results - last 24 hr 1008/22/18 08/23/18 16:11 22:01 06:32 POC Glucose 214 H 157 H 136 H 08/23/18 08/23/18 08:58 11:47 POC Glucose 135 H 122 H Microbiology 08/20/18 03:43 Blood - Peripheral Aerobic Blood Culture - Preliminary No growth in 3 days 08/20/18 03:43 Blood - Peripheral Anaerobic Blood Culture - Preliminary No growth in 3 days 08/20/18 03:48 Blood - Peripheral Aerobic Blood Culture - Preliminary No growth in 3 days 08/20/18 03:48 Blood - Peripheral Anaerobic Blood Culture - Preliminary No growth in 3 days Assessment and Plan - Plan Acute left frontal intraparenchymal hemorrhage/traumatic with small left frontal subarachnoid hemorrhage Seizure Hard of hearing CT brain admission revealed 1.6 cm left frontal intraparenchymal hemorrhage with mild surrounding edema. Small left frontal subarachnoid hemorrhage. CT brain this a.m. reveals evolving left frontal intracranial hemorrhage with left frontal high convexity subarachnoid hemorrhage. No shift. Followed by Dr. Smith/neurosurgery On levetiracetam 500 mg IV twice daily to be continued- change to 500 mg pob id Seizure precaution Neurochecks every 2 hours CV: History of atrial fibrillation status post ablation x2/failed Currently in atrial flutter rate controlled Coronary disease status post CABG Essential hypertension Hyperlipidemia Mitral regurgitation Metoprolol tartrate 50 mg twice daily Diltiazem 180 mg p.o. daily for hypertension his home medication. Will switch to 30 mg 4 times daily in light of borderline blood pressures Currently atrial flutter currently rate controlled on diltiazem and metoprolol as above. Prior history of Tikosyn use with failed ablations 2004. Has seen Dr. Hannah in the past with cardioversion in 2016 documented in the records with 200 J. Patient is on simvastatin 20 mg daily at home for dyslipidemia. Continue bumetanide at 2 mg daily with metolazone 2.5 mg daily. On 4 mg twice daily and 5 mg respectively daily at home restart Bumex - OP ff up with- states she ff with Dr. 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 moya GI: Sigmoid diverticulosis Hypoalbuminemia History of colonic perforation status post resection/colostomy with revision Okay for ADA diet Famotidine for GI prophylax Docusate sodium/senna 1 tablet twice daily for bowel regimen : No indication for Fields catheter Endo: Diabetes mellitus type 2 Gout Elevated TSH with low free T3. Normal T4. Sliding scale insulin Accu-Cheks AC/at bedtime to maintain euglycemia/low regimen of aspart insulin Holding glipizide 7.5 mg twice daily. Continue allopurinol at renally dose 100 mg daily Likely will need to be started on levothyroxine likely as an outpatient through PCP Renal: Acute kidney injury Right kidney calcified calyx without obstruction or hydronephrosis Renal ultrasound with right kidney calcified calyx as above. No obstruction or hydronephrosis. Creatinine currently 1.95. Avoid nephrotoxic drugs. Okay to slowly restart diuretics- bumex 2 mg daily Restart Bumex 1 mg daily Heme: Leukocytosis Macrocytic anemia History of melanoma status post excision Prior history of apixaban use status post 4500 units PCC in ED 08/19 No indication for transfusion of blood products at this time ID: Possible bilateral lower extremity cellulitis Blood cultures x2 -08/20 NGTD Currently piperacillin l/tazobactam. Adjust renally as indicated dosage and Doppler bilateral lower extremities- no DVT Received 0.5 mg IM TD in ED Levaquin 250 mg po daily x 5 days MSK: PT evaluate and treat FEN: Hypokalemia Replace electrolytes as clinically indicated per ICU likely protocol. Start potassium chloride 20 mEq twice daily. improved Access: -Utilize peripheral IV. Central line if indicated Prophylaxis -GI -famotidine -DVT -SCD/pharmacological prophylaxis when okay with neurosurgery CM consult- HOme with home [facility] nursing/PT and patient does not want to go to rehab OP ff up with PCP Cardiology- Dr. Corona Nephrology- Dr. Na espinosa- Dr. paris will call and make appts for all above
--- NOTE | 2018-08-23 13:35 | P.DCO ---
- Physical Therapy Order: Evaluate and treat, Improve ambulation, Strength and gait training - Occupational Therapy Order: Evaluate and treat, Improve ADL - Speech Therapy Order: To improve: Speech and communication skills, Cognitive skills - Home Health Nursing Order: Medical education, Signs/symptoms of disease process, Medication education-adverse effect, Nursing assessment with vital signs - Home Health Aide Order: To assist in: Bathing and personal care - Coal Tram Driver Order: To evaluate: Support services Order: To provide: Community services - Case Management Consult Yes - Certification I have seen patient Seymour Moise on 08/23/18. My clinical findings support the need for the requested home health care services because: Limited mobility due to disease progression, Deconditioned with increased weakness, Limited ability to care for self, Need for psychosocial assistance, High risk of falls I certify that my clinical findings support that this patient is homebound because: Need for psychosocial assistance
[2018-08-23 14:08] VITALS: BP 117/57; PULSE 70; RESP 24; TEMP 97.5; O2SAT 97
--- NOTE | 2018-08-23 14:17 | P.DS ---
Date of admission: 08/19/18 16:41 Primary care physician: UNKNOWN Attending physician on discharge: Dayton Cody Anticipated date of discharge: 08/23/18 Brief History from admission: The patient is a 77-year-old male with a past medical history of atrial fibrillation, on Eliquis, and multiple ablations in the past, diabetes mellitus , hypertension, who presented to the [place] ED by EVAC status post fall and with altered mental status. Per ED records, the patient fell and hit his head yesterday at 11 p.m.; however, he refused to come to the hospital. Today at 3 p.m., the patient was found unresponsive on the floor in the kitchen. When his shook him, he was responsive, but not acting like himself. Blood was noted on the posterior scalp, and the patient denies any complaints. CT scan of the brain was obtained which showed an acute intraparenchymal hemorrhage in the left frontal lobe with mild surrounding subarachnoid hemorrhage and mild edema. No significant mass effect or midline shift. No evidence of acute fracture. Also, he had a cervical spine CT which showed degenerative changes without any evidence for acute fracture. His laboratory data is noted for leukocytosis with a WBC of 13.2, acute renal failure with a BUN of 79 and creatinine of 2.4 and hypokalemia with a potassium level of 2.8. His INR was 1.3. In the ED, the patient received prothrombin complex concentrate, 500 bolus of NS and potassium replacement. Dr. Smith from neurosurgery was notified and the patient was transferred to the surgical ICU at the [facility]. When seen, he is awake, alert, on 2 liters nasal cannula. His current blood pressure is 139/67 with a pulse of 93 and a saturation of 97%. He denies any chest pain; however, he reports occasional shortness of breath. The patient denies any orthopnea or PND; however, he reports edema of his lower extremities. Furthermore, he denies any nausea, vomiting or abdominal pain. DS: Medications - Discharge Medications Prescriptions: allopurinol [Zyloprim] 100 mg PO DAILY #30 tab RX: bumetanide 2 mg PO DAILY #30 tab levetiracetam [Keppra] 500 mg PO BID #60 tab RX: levofloxacin 250 mg PO DAILY #5 tab DS: Summary Hospital Course: Acute left frontal intraparenchymal hemorrhage/traumatic with small left frontal subarachnoid hemorrhage Seizure Hard of hearing CT brain admission revealed 1.6 cm left frontal intraparenchymal hemorrhage with mild surrounding edema. Small left frontal subarachnoid hemorrhage. CT brain this a.m. reveals evolving left frontal intracranial hemorrhage with left frontal high convexity subarachnoid hemorrhage. No shift. Followed by Dr. Smith/neurosurgery On levetiracetam 500 mg IV twice daily to be continued- change to 500 mg pob id Seizure precaution Neurochecks every 2 hours CV: History of atrial fibrillation status post ablation x2/failed Currently in atrial flutter rate controlled Coronary disease status post CABG Essential hypertension Hyperlipidemia Mitral regurgitation Metoprolol tartrate 50 mg twice daily Diltiazem 180 mg p.o. daily for hypertension his home medication. Will switch to 30 mg 4 times daily in light of borderline blood pressures Currently atrial flutter currently rate controlled on diltiazem and metoprolol as above. Prior history of Tikosyn use with failed ablations 2004. Has seen Dr. Hannah in the past with cardioversion in 2016 documented in the records with 200 J. Patient is on simvastatin 20 mg daily at home for dyslipidemia. Continue bumetanide at 2 mg daily with metolazone 2.5 mg daily. On 4 mg twice daily and 5 mg respectively daily at home restart Bumex - OP ff up with- states she ff with Dr. 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 moya GI: Sigmoid diverticulosis Hypoalbuminemia History of colonic perforation status post resection/colostomy with revision Okay for ADA diet Famotidine for GI prophylax Docusate sodium/senna 1 tablet twice daily for bowel regimen : No indication for Fields catheter Endo: Diabetes mellitus type 2 Gout Elevated TSH with low free T3. Normal T4. Sliding scale insulin Accu-Cheks AC/at bedtime to maintain euglycemia/low regimen of aspart insulin Holding glipizide 7.5 mg twice daily. Continue allopurinol at renally dose 100 mg daily Likely will need to be started on levothyroxine likely as an outpatient through PCP Renal: Acute kidney injury Right kidney calcified calyx without obstruction or hydronephrosis Renal ultrasound with right kidney calcified calyx as above. No obstruction or hydronephrosis. Creatinine currently 1.95. Avoid nephrotoxic drugs. Okay to slowly restart diuretics- bumex 2 mg daily Restart Bumex 1 mg daily Heme: Leukocytosis Macrocytic anemia History of melanoma status post excision Prior history of apixaban use status post 4500 units PCC in ED 08/19 No indication for transfusion of blood products at this time ID: Possible bilateral lower extremity cellulitis Blood cultures x2 -08/20 NGTD Currently piperacillin l/tazobactam. Adjust renally as indicated dosage and Doppler bilateral lower extremities- no DVT Received 0.5 mg IM TD in ED Levaquin 250 mg po daily x 5 days MSK: PT evaluate and treat FEN: Hypokalemia Replace electrolytes as clinically indicated per ICU likely protocol. Start potassium chloride 20 mEq twice daily. improved Access: -Utilize peripheral IV. Central line if indicated Prophylaxis -GI -famotidine -DVT -SCD/pharmacological prophylaxis when okay with neurosurgery CM consult- HOme with home [facility] nursing/PT and patient does not want to go to rehab OP ff up with PCP Cardiology- Dr. Corona Nephrology- Dr. Na espinosa- Dr. paris will call and make appts for all above - Time Spent with Patient Total time spent providing and/or coordinating discharge services: Greater than 30 minutes Exam Vital signs: Vital Signs 08/22/18 16:00 08/22/18 20:00 08/22/18 20:23 Temperature 97.6 F 98.1 F Pulse Rate 77 78 Respiratory Rate 18 25 H Blood Pressure 133/58 L 130/59 L Pulse Oximetry 97 95 94 L 08/23/18 00:00 08/23/18 04:00 08/23/18 07:26 Temperature 97.7 F 97.9 F Pulse Rate 73 74 Respiratory Rate 14 14 Blood Pressure 112/64 121/68 Pulse Oximetry 100 98 100 08/23/18 08:00 08/23/18 12:00 Temperature 97.7 F 97.5 F L Pulse Rate 72 70 Respiratory Rate 14 24 Blood Pressure 108/62 117/57 L Pulse Oximetry 100 97 Intake & Output 08/22/18 08/23/18 08/23/18 18:59 06:59 18:59 Intake Total 445 / 445 505 / 505 Balance 445 / 445 505 / 505 Weight 98.9 kg Intake: IV 205 / 205 205 / 205 Zosyn 3.375 GM Premix 50 ML @ 100 / 100 100 / 100 100 mls/hr IV.SIG Q6H MAGALY Rx#: [id number] Keppra Inj 500 MG In NS Inj 100 105 / 105 105 / 105 ML @ 400 mls/hr IV.SIG Q12H MAGALY Rx#:[id number] Oral 240 / 240 300 / 300 Other: # Voids 3 3 Date of Last Bowel Movement 08/22/18 08/23/18 08/23/18 # Bowel Movements 2 3 Results Procedures completed during hospitalization: none Labs on day of discharge: Labs from last 24 hours 08/23/18 08/23/18 08/23/18 11:47 08:58 06:32 POC Glucose 122 H 135 H 136 H 08/22/18 08/22/18 22:01 16:11 POC Glucose 157 H 214 H Preliminary micro results at discharge 08/20/18 03:43 Aerobic Blood Culture - Preliminary Blood - Peripheral No growth in 3 days Anaerobic Blood Culture - Preliminary No growth in 3 days 08/20/18 03:48 Aerobic Blood Culture - Preliminary Blood - Peripheral No growth in 3 days Anaerobic Blood Culture - Preliminary No growth in 3 days - Impressions ITS Impressions Abdomen/Bladder Ultrasound 08/19/18 00:00 CONCLUSION: 1. 3 mm probable nonobstructing calyceal calculus in the mid right kidney. 2. No sonographic evidence for obstructive uropathy. 3. Small amount of ascites with fluid noted primarily along the inferior margin of the liver. Cervical Spine CT 08/19/18 15:46 CONCLUSION: 1. Degenerative changes and DISH without evidence for acute fracture or listhesis. Chest X-Ray 08/19/18 18:45 CONCLUSION: Mild failure. Venous Doppler Study 08/20/18 00:00 CONCLUSION: 1. Negative for deep venous thrombosis. 2. Multiple right inguinal lymph nodes. Head CT 08/20/18 05:00 CONCLUSION: 1. Evolving left frontal lobe intraparenchymal hemorrhage with very small amount of evolving subarachnoid hemorrhage in the left frontal mid to high convexities. 2. No midline shift, hydrocephalus or new intercurrent hemorrhage. . Liver Ultrasound 08/22/18 00:00 CONCLUSION: 1. Echogenic liver without gallstones. 2. Normal common duct Discharge Plan - Discharge Disposition Patient Disposition: /Home Health Service - Discharge Condition Condition: Stable - Discharge Order Discharge Orders: Discharge Order (Routine); Ordered 08/23/18 Ordered By: Dayton Cody - Discharge Details Anticipated Discharge Date: 08/23/18 - Physicians Team Primary Care Provider: UNKNOWN, Attending Provider: Dayton Cody Other Providers: Enrique Smith MD
[2018-08-23 15:26] LABS: Calcium 9.2 mg/dL (8.5-10.1); Carbon Dioxide 26.3 meq/L (21.0-32.0); Potassium 3.9 meq/L (3.5-5.1)
[2018-08-23] MEDS ORDERED: levETIRAcetam 500 MG Tablet PO SCH (21:00)
[2018-08-24] MEDS ORDERED: levoFLOXacin 250 MG Tablet PO SCH (09:00)
== END 2018-08-23 15:39 | disposition home health service (06) ==
LOC: PHED 15:43 → PHEDA 16:41 → N03 18:30
PROVIDERS: ADMIT Internal Medicine; ATTEND Internal Medicine
DX: W19.XXXA Unspecified fall, initial encounter; M10.9 Gout, unspecified; R56.9 Unspecified convulsions; S06.6X9A Traumatic subarachnoid hemorrhage with loss of consciousness of unspecified duration, initial encounter; I48.92 Unspecified atrial flutter; Z87.891 Personal history of nicotine dependence; S01.311A Laceration without foreign body of right ear, initial encounter; Z95.810 Presence of automatic (implantable) cardiac defibrillator; Z79.84 Long term (current) use of oral hypoglycemic drugs; Z79.01 Long term (current) use of anticoagulants; Z85.820 Personal history of malignant melanoma of skin; I10 Essential (primary) hypertension; G47.33 Obstructive sleep apnea (adult) (pediatric); Z96.649 Presence of unspecified artificial hip joint; G93.6 Cerebral edema; N17.9 Acute kidney failure, unspecified; I25.10 Atherosclerotic heart disease of native coronary artery without angina pectoris; H91.90 Unspecified hearing loss, unspecified ear; K57.30 Diverticulosis of large intestine without perforation or abscess without bleeding; I34.0 Nonrheumatic mitral (valve) insufficiency; D53.9 Nutritional anemia, unspecified; D68.9 Coagulation defect, unspecified; E11.9 Type 2 diabetes mellitus without complications; E87.6 Hypokalemia; L03.116 Cellulitis of left lower limb; E78.5 Hyperlipidemia, unspecified; S01.81XA Laceration without foreign body of other part of head, initial encounter; I27.20 Pulmonary hypertension, unspecified; Z95.1 Presence of aortocoronary bypass graft; Z96.651 Presence of right artificial knee joint; E88.09 Other disorders of plasma-protein metabolism, not elsewhere classified; L03.115 Cellulitis of right lower limb; Z23 Encounter for immunization; I48.2 Chronic atrial fibrillation; R59.0 Localized enlarged lymph nodes

== ENCOUNTER 2018-09-06 22:37 | Inpatient (IN) ==
[2018-09-06] MEDS ORDERED: Propofol 1000 mg/100 ml Inj 1,000 MG/100 ML BOTTLE IV.CONT PRN ×3 (22:47→22:59)
[2018-09-06] MEDS ORDERED: Propofol 1000 mg/100 ml Inj 1,000 MG/100 ML BOTTLE ONE (22:54)
--- NOTE | 2018-09-06 23:20 | ED ---
HPI General Chief Complaint: Seizure Stated Complaint: seizure Time Seen by Provider: 09/06/18 22:43 Source: EMS Mode of arrival: EMS History of Present Illness HPI Narrative: Patient is a 69-year-old male from home who apparently was seizing called paramedics they arrived to find him seizing in the setting they gave him 2 of Versed to break his seizure after the establish IV access patient then in route has another seizure and they gave him 2 more Versed patient is a postictal voiding episode and becomes respiratory decreased he satting less respiratory effort and was needed to be intubated by the paramedics en route to ER ,, they intubate him He arrives sedated intubated and possibly seizing with contraction of the right hand and elevation of the right ET tube is in place possibly slightly deep and he is started on a propofol drip to keep him sedated for the tube and he will be admitted to the ICU labs are sent CT of head will be ordered for evaluation of possible causes and to establish if this is a new seizure or he has a history of seizure MD complaint: Reports seizure Onset (ago): minute(s) Description of Episode: Reports loss of consciousness and tonic-clonic movement -: minutes(s) Witnessed: yes - by other Related Data Home Medications Medication Instructions Recorded Confirmed diltiazem HCl 1 cap PO DAILY 08/19/18 08/19/18 magnesium oxide 400 mg PO BID 08/19/18 08/19/18 metolazone 5 mg PO DAILY 08/19/18 08/19/18 metoprolol tartrate 50 mg PO BID 08/19/18 08/19/18 potassium chloride 1 tab PO BID 08/19/18 08/19/18 simvastatin 20 mg PO QPM 08/19/18 08/19/18 Previous Rx's Medication Instructions Recorded allopurinol [Zyloprim] 100 mg PO DAILY #30 tab 08/23/18 bumetanide 2 mg PO DAILY #30 tab 08/23/18 levetiracetam [Keppra] 500 mg PO BID #60 tab 08/23/18 levofloxacin 250 mg PO DAILY #5 tab 08/23/18 Allergies Allergy/AdvReac Type Severity Reaction Status Date / Time digitoxin Allergy Severe Hallucinati Verified 08/19/18 15:46 ons Review of Systems ROS Unobtainable ROS Unobtainable: unobtainable due to mental status PMFSH Medical History Medical History MDRO (multiple drug resistant organisms) resistance (Acute ~09/08/18) Atrial fibrillation (Acute) Diabetes (Acute) Gout (Acute) Surgical History Surgical History H/O craniotomy (Acute) AICD (automatic cardioverter/defibrillator) present (Acute) Family History Family History Other Family history non-contributory Social History Social History Substance History: No History of Abuse Second Hand Smoke Exposure: No Smoking Status: Never smoker How Often Do You Have a Drink Containing Alcohol: Never Recent Travel in [facility] within the Last 8 Weeks: No Recent Out of Country Travel within the Last 8 Weeks: No Course Initial Documented Vital Signs Pulse Rate 110 H 09/06/18 22:39 Respiratory Rate 20 09/06/18 22:39 Blood Pressure 136/72 09/06/18 22:39 Pulse Oximetry 100 09/06/18 22:39 Last Documented Vital Signs Temperature 97.8 F 09/21/18 16:00 Pulse Rate 87 09/21/18 16:00 Respiratory Rate 19 09/21/18 16:00 Blood Pressure 115/63 09/21/18 16:00 Pulse Oximetry 99 09/21/18 16:00 Medical Decision Making Lab Data Result diagrams: 09/21/18 03:21 09/21/18 03:21 Lab Results 09/06/18 09/06/18 09/06/18 Range/Units 23:00 23:00 23:00 WBC 8.8 (4.0-11.0) th/mm3 RBC 3.18 L (4.50-5.90) mil/mm3 Hgb 11.2 L (13.0-17.0) gm/dL Hct 34.4 L (39.0-51.0) % MCV 108.0 H (80.0-100.0) fL MCH 35.0 H (27.0-34.0) pg MCHC 32.5 (32.0-36.0) % RDW 17.6 H (11.6-17.2) % Plt Count 182 (150-450) th/mm3 MPV 8.2 (7.0-11.0) fL Prelim Diff (Auto) Neut % (Auto) 83.6 H (16.0-70.0) % Lymph % (Auto) 7.4 L (9.0-44.0) % Lee % (Auto) 7.0 (0.0-8.0) % Eos % (Auto) 1.2 (0.0-4.0) % Baso % (Auto) 0.8 (0.0-2.0) % Neut # (Auto) 7.3 (1.8-7.7) th/mm3 Lymph # (Auto) 0.7 L (1.0-4.8) th/mm3 Lee # (Auto) 0.6 (0.0-0.9) th/mm3 Eos # (Auto) 0.1 (0.0-0.4) th/mm3 Baso # (Auto) 0.1 (0.0-0.2) th/mm3 WBC Differential . Seg Neuts % (Manual) (16-70) % Band Neuts % (Manual) (0-6) % Lymphocytes % (Manual) (9-44) % Monocytes % (Manual) (0-8) % Basophils % (Manual) (0-2) % Metamyelocytes % (Man) (0-1) % Abs Neuts (Manual) (1.8-7.7) th/mm3 Differential Comment Auto diff final Platelet Estimate (Normal) Platelet Morphology (Normal) PT (9.8-11.6) sec INR Ratio APTT (24.3-30.1) sec Puncture Site Patient Temperature O2 Saturation (90-100) % ABG pH (7.380-7.420) ABG pCO2 (38-42) mmHg ABG pO2 (61-120) mmHg ABG HCO3 (22-26) mmol/L ABG O2 Content (12.0-20.0) Vol % ABG Base Excess (-2-2) mmol/L ABG Methemoglobin (0-2) % Sea Test Hemoglobin (12.0-16.0) G/DL Carboxyhemoglobin (0-4) % O2 Delivery Device Vent Setting Inspired O2 % Critical Value Sodium 136 (136-145) meq/L Potassium 3.3 L (3.5-5.1) meq/L Chloride 91 L (98-107) meq/L Carbon Dioxide 32.7 H (21.0-32.0) meq/L Anion Gap 12 (5-15) meq/L BUN 51 H (7-18) mg/dL Creatinine 2.12 H (0.60-1.30) mg/dL Estimated GFR 30 L (>89) mL/min POC Glucose (68-110) mg/dl Random Glucose 166 H (74-106) mg/dL Lactic Acid (0.4-2.0) mmol/L Calcium 8.9 (8.5-10.1) mg/dL Phosphorus (2.5-4.9) mg/dL Magnesium 1.6 (1.5-2.5) mg/dL Total Bilirubin (0.2-1.0) mg/dL AST (15-37) U/L ALT (12-78) U/L Alkaline Phosphatase (45-117) U/L Troponin I Less than 0.02 L (0.02-0.05) ng/mL B-Natriuretic Peptide (0-100) pg/mL Total Protein (6.4-8.2) g/dL Albumin (3.4-5.0) g/dL TSH (0.358-3.740) uIU/mL Thyroxine (T4) (4.5-12.1) mcg/dL Urine Color (Yellw/Straw) Urine Clarity (Clear) Urine pH (5.0-8.5) Ur Specific Wells (1.002-1.035) Urine Protein (Neg-Trace) mg/dL Urine Glucose (UA) (Negative) mg/dL Urine Ketones (Negative) mg/dL Urine Occult Blood (Negative) Urine Nitrate (Negative) Urine Bilirubin (Negative) Urine Urobilinogen (Less than 2) mg/dL Ur Leukocyte Esterase (Negative) Urine RBC (0-3) /hpf Urine WBC (0-5) /hpf Ur Squamous Epith Cells (0-5) /hpf Urine Bacteria (None) /hpf Urine Mucus (Occasional) /lpf Urine Yeast (None) /hpf Micro UA Comment Ur Microscopic Review Urine Culture Comments Nasal Screen MRSA (PCR) (Negative) Stool C.difficile Ag (Negative) Stool C.difficile Toxin (Negative) Stl C.difficile DNA Amp (Negative) St C. diff Tox Epid 027 (Negative) Phenytoin (10.0-20.0) mcg/mL Free Phenytoin (1.0-2.0) mg/L Valproic Acid (50-100) mcg/mL Phenobarbital (15.0-40.0) mcg/mL Blood Type Antibody Screen MTS Gel Crossmatch 09/07/18 09/07/18 09/07/18 Range/Units 04:00 05:49 05:49 WBC 9.0 (4.0-11.0) th/mm3 RBC 2.86 L (4.50-5.90) mil/mm3 Hgb 10.0 L (13.0-17.0) gm/dL Hct 30.7 L (39.0-51.0) % MCV 107.4 H (80.0-100.0) fL MCH 35.1 H (27.0-34.0) pg MCHC 32.7 (32.0-36.0) % RDW 17.0 (11.6-17.2) % Plt Count 159 (150-450) th/mm3 MPV 7.9 (7.0-11.0) fL Prelim Diff (Auto) Neut % (Auto) 88.9 H (16.0-70.0) % Lymph % (Auto) 4.8 L (9.0-44.0) % Lee % (Auto) 5.7 (0.0-8.0) % Eos % (Auto) 0.1 (0.0-4.0) % Baso % (Auto) 0.5 (0.0-2.0) % Neut # (Auto) 8.0 H (1.8-7.7) th/mm3 Lymph # (Auto) 0.4 L (1.0-4.8) th/mm3 Lee # (Auto) 0.5 (0.0-0.9) th/mm3 Eos # (Auto) 0.0 (0.0-0.4) th/mm3 Baso # (Auto) 0.0 (0.0-0.2) th/mm3 WBC Differential . Seg Neuts % (Manual) (16-70) % Band Neuts % (Manual) (0-6) % Lymphocytes % (Manual) (9-44) % Monocytes % (Manual) (0-8) % Basophils % (Manual) (0-2) % Metamyelocytes % (Man) (0-1) % Abs Neuts (Manual) (1.8-7.7) th/mm3 Differential Comment Auto diff final Platelet Estimate (Normal) Platelet Morphology (Normal) PT 11.8 H (9.8-11.6) sec INR 1.2 Ratio APTT 30.2 H (24.3-30.1) sec Puncture Site Patient Temperature O2 Saturation (90-100) % ABG pH (7.380-7.420) ABG pCO2 (38-42) mmHg ABG pO2 (61-120) mmHg ABG HCO3 (22-26) mmol/L ABG O2 Content (12.0-20.0) Vol % ABG Base Excess (-2-2) mmol/L ABG Methemoglobin (0-2) % Sea Test Hemoglobin (12.0-16.0) G/DL Carboxyhemoglobin (0-4) % O2 Delivery Device Vent Setting Inspired O2 % Critical Value Sodium (136-145) meq/L Potassium (3.5-5.1) meq/L Chloride (98-107) meq/L Carbon Dioxide (21.0-32.0) meq/L Anion Gap (5-15) meq/L BUN (7-18) mg/dL Creatinine (0.60-1.30) mg/dL Estimated GFR (>89) mL/min POC Glucose (68-110) mg/dl Random Glucose (74-106) mg/dL Lactic Acid (0.4-2.0) mmol/L Calcium (8.5-10.1) mg/dL Phosphorus (2.5-4.9) mg/dL Magnesium (1.5-2.5) mg/dL Total Bilirubin (0.2-1.0) mg/dL AST (15-37) U/L ALT (12-78) U/L Alkaline Phosphatase (45-117) U/L Troponin I (0.02-0.05) ng/mL B-Natriuretic Peptide (0-100) pg/mL Total Protein (6.4-8.2) g/dL Albumin (3.4-5.0) g/dL TSH (0.358-3.740) uIU/mL Thyroxine (T4) (4.5-12.1) mcg/dL Urine Color (Yellw/Straw) Urine Clarity (Clear) Urine pH (5.0-8.5) Ur Specific Wells (1.002-1.035) Urine Protein (Neg-Trace) mg/dL Urine Glucose (UA) (Negative) mg/dL Urine Ketones (Negative) mg/dL Urine Occult Blood (Negative) Urine Nitrate (Negative) Urine Bilirubin (Negative) Urine Urobilinogen (Less than 2) mg/dL Ur Leukocyte Esterase (Negative) Urine RBC (0-3) /hpf Urine WBC (0-5) /hpf Ur Squamous Epith Cells (0-5) /hpf Urine Bacteria (None) /hpf Urine Mucus (Occasional) /lpf Urine Yeast (None) /hpf Micro UA Comment Ur Microscopic Review Urine Culture Comments Nasal Screen MRSA (PCR) Not detected (Negative) Stool C.difficile Ag (Negative) Stool C.difficile Toxin (Negative) Stl C.difficile DNA Amp (Negative) St C. diff Tox Epid 027 (Negative) Phenytoin (10.0-20.0) mcg/mL Free Phenytoin (1.0-2.0) mg/L Valproic Acid (50-100) mcg/mL Phenobarbital (15.0-40.0) mcg/mL Blood Type Antibody Screen MTS Gel Crossmatch 09/07/18 09/07/18 09/07/18 Range/Units 05:49 05:49 05:52 WBC (4.0-11.0) th/mm3 RBC (4.50-5.90) mil/mm3 Hgb (13.0-17.0) gm/dL Hct (39.0-51.0) % MCV (80.0-100.0) fL MCH (27.0-34.0) pg MCHC (32.0-36.0) % RDW (11.6-17.2) % Plt Count (150-450) th/mm3 MPV (7.0-11.0) fL Prelim Diff (Auto) Neut % (Auto) (16.0-70.0) % Lymph % (Auto) (9.0-44.0) % Lee % (Auto) (0.0-8.0) % Eos % (Auto) (0.0-4.0) % Baso % (Auto) (0.0-2.0) % Neut # (Auto) (1.8-7.7) th/mm3 Lymph # (Auto) (1.0-4.8) th/mm3 Lee # (Auto) (0.0-0.9) th/mm3 Eos # (Auto) (0.0-0.4) th/mm3 Baso # (Auto) (0.0-0.2) th/mm3 WBC Differential Seg Neuts % (Manual) (16-70) % Band Neuts % (Manual) (0-6) % Lymphocytes % (Manual) (9-44) % Monocytes % (Manual) (0-8) % Basophils % (Manual) (0-2) % Metamyelocytes % (Man) (0-1) % Abs Neuts (Manual) (1.8-7.7) th/mm3 Differential Comment Platelet Estimate (Normal) Platelet Morphology (Normal) PT (9.8-11.6) sec INR Ratio APTT (24.3-30.1) sec Puncture Site Patient Temperature O2 Saturation (90-100) % ABG pH (7.380-7.420) ABG pCO2 (38-42) mmHg ABG pO2 (61-120) mmHg ABG HCO3 (22-26) mmol/L ABG O2 Content (12.0-20.0) Vol % ABG Base Excess (-2-2) mmol/L ABG Methemoglobin (0-2) % Sea Test Hemoglobin (12.0-16.0) G/DL Carboxyhemoglobin (0-4) % O2 Delivery Device Vent Setting Inspired O2 % Critical Value Sodium 139 (136-145) meq/L Potassium 3.4 L (3.5-5.1) meq/L Chloride 96 L (98-107) meq/L Carbon Dioxide 33.3 H (21.0-32.0) meq/L Anion Gap 10 (5-15) meq/L BUN 51 H (7-18) mg/dL Creatinine 1.74 H (0.60-1.30) mg/dL Estimated GFR 38 L (>89) mL/min POC Glucose 229 H (68-110) mg/dl Random Glucose 205 H (74-106) mg/dL Lactic Acid 1.3 (0.4-2.0) mmol/L Calcium 8.3 L (8.5-10.1) mg/dL Phosphorus 4.4 (2.5-4.9) mg/dL Magnesium 1.8 (1.5-2.5) mg/dL Total Bilirubin 1.2 H (0.2-1.0) mg/dL AST 16 (15-37) U/L ALT 9 L (12-78) U/L Alkaline Phosphatase 108 (45-117) U/L Troponin I 0.02 (0.02-0.05) ng/mL B-Natriuretic Peptide (0-100) pg/mL Total Protein 7.6 (6.4-8.2) g/dL Albumin 3.2 L (3.4-5.0) g/dL TSH (0.358-3.740) uIU/mL Thyroxine (T4) (4.5-12.1) mcg/dL Urine Color (Yellw/Straw) Urine Clarity (Clear) Urine pH (5.0-8.5) Ur Specific Wells (1.002-1.035) Urine Protein (Neg-Trace) mg/dL Urine Glucose (UA) (Negative) mg/dL Urine Ketones (Negative) mg/dL Urine Occult Blood (Negative) Urine Nitrate (Negative) Urine Bilirubin (Negative) Urine Urobilinogen (Less than 2) mg/dL Ur Leukocyte Esterase (Negative) Urine RBC (0-3) /hpf Urine WBC (0-5) /hpf Ur Squamous Epith Cells (0-5) /hpf Urine Bacteria (None) /hpf Urine Mucus (Occasional) /lpf Urine Yeast (None) /hpf Micro UA Comment Ur Microscopic Review Urine Culture Comments Nasal Screen MRSA (PCR) (Negative) Stool C.difficile Ag (Negative) Stool C.difficile Toxin (Negative) Stl C.difficile DNA Amp (Negative) St C. diff Tox Epid 027 (Negative) Phenytoin (10.0-20.0) mcg/mL Free Phenytoin (1.0-2.0) mg/L Valproic Acid (50-100) mcg/mL Phenobarbital (15.0-40.0) mcg/mL Blood Type Antibody Screen MTS Gel Crossmatch 09/07/18 09/07/18 09/07/18 Range/Units 12:45 13:37 17:34 WBC (4.0-11.0) th/mm3 RBC (4.50-5.90) mil/mm3 Hgb (13.0-17.0) gm/dL Hct (39.0-51.0) % MCV (80.0-100.0) fL MCH (27.0-34.0) pg MCHC (32.0-36.0) % RDW (11.6-17.2) % Plt Count (150-450) th/mm3 MPV (7.0-11.0) fL Prelim Diff (Auto) Neut % (Auto) (16.0-70.0) % Lymph % (Auto) (9.0-44.0) % Lee % (Auto) (0.0-8.0) % Eos % (Auto) (0.0-4.0) % Baso % (Auto) (0.0-2.0) % Neut # (Auto) (1.8-7.7) th/mm3 Lymph # (Auto) (1.0-4.8) th/mm3 Lee # (Auto) (0.0-0.9) th/mm3 Eos # (Auto) (0.0-0.4) th/mm3 Baso # (Auto) (0.0-0.2) th/mm3 WBC Differential Seg Neuts % (Manual) (16-70) % Band Neuts % (Manual) (0-6) % Lymphocytes % (Manual) (9-44) % Monocytes % (Manual) (0-8) % Basophils % (Manual) (0-2) % Metamyelocytes % (Man) (0-1) % Abs Neuts (Manual) (1.8-7.7) th/mm3 Differential Comment Platelet Estimate (Normal) Platelet Morphology (Normal) PT (9.8-11.6) sec INR Ratio APTT (24.3-30.1) sec Puncture Site Patient Temperature O2 Saturation (90-100) % ABG pH (7.380-7.420) ABG pCO2 (38-42) mmHg ABG pO2 (61-120) mmHg ABG HCO3 (22-26) mmol/L ABG O2 Content (12.0-20.0) Vol % ABG Base Excess (-2-2) mmol/L ABG Methemoglobin (0-2) % Sea Test Hemoglobin (12.0-16.0) G/DL Carboxyhemoglobin (0-4) % O2 Delivery Device Vent Setting Inspired O2 % Critical Value Sodium (136-145) meq/L Potassium (3.5-5.1) meq/L Chloride (98-107) meq/L Carbon Dioxide (21.0-32.0) meq/L Anion Gap (5-15) meq/L BUN (7-18) mg/dL Creatinine (0.60-1.30) mg/dL Estimated GFR (>89) mL/min POC Glucose 180 H 187 H (68-110) mg/dl Random Glucose (74-106) mg/dL Lactic Acid (0.4-2.0) mmol/L Calcium (8.5-10.1) mg/dL Phosphorus (2.5-4.9) mg/dL Magnesium (1.5-2.5) mg/dL Total Bilirubin (0.2-1.0) mg/dL AST (15-37) U/L ALT (12-78) U/L Alkaline Phosphatase (45-117) U/L Troponin I (0.02-0.05) ng/mL B-Natriuretic Peptide (0-100) pg/mL Total Protein (6.4-8.2) g/dL Albumin (3.4-5.0) g/dL TSH (0.358-3.740) uIU/mL Thyroxine (T4) (4.5-12.1) mcg/dL Urine Color (Yellw/Straw) Urine Clarity (Clear) Urine pH (5.0-8.5) Ur Specific Wells (1.002-1.035) Urine Protein (Neg-Trace) mg/dL Urine Glucose (UA) (Negative) mg/dL Urine Ketones (Negative) mg/dL Urine Occult Blood (Negative) Urine Nitrate (Negative) Urine Bilirubin (Negative) Urine Urobilinogen (Less than 2) mg/dL Ur Leukocyte Esterase (Negative) Urine RBC (0-3) /hpf Urine WBC (0-5) /hpf Ur Squamous Epith Cells (0-5) /hpf Urine Bacteria (None) /hpf Urine Mucus (Occasional) /lpf Urine Yeast (None) /hpf Micro UA Comment Ur Microscopic Review Urine Culture Comments Nasal Screen MRSA (PCR) (Negative) Stool C.difficile Ag (Negative) Stool C.difficile Toxin (Negative) Stl C.difficile DNA Amp (Negative) St C. diff Tox Epid 027 (Negative) Phenytoin 12.0 (10.0-20.0) mcg/mL Free Phenytoin (1.0-2.0) mg/L Valproic Acid (50-100) mcg/mL Phenobarbital Less than 2.1 L (15.0-40.0) mcg/mL Blood Type Antibody Screen MTS Gel Crossmatch 09/08/18 09/08/18 09/08/18 Range/Units 00:04 03:37 05:49 WBC (4.0-11.0) th/mm3 RBC (4.50-5.90) mil/mm3 Hgb (13.0-17.0) gm/dL Hct (39.0-51.0) % MCV (80.0-100.0) fL MCH (27.0-34.0) pg MCHC (32.0-36.0) % RDW (11.6-17.2) % Plt Count (150-450) th/mm3 MPV (7.0-11.0) fL Prelim Diff (Auto) Neut % (Auto) (16.0-70.0) % Lymph % (Auto) (9.0-44.0) % Lee % (Auto) (0.0-8.0) % Eos % (Auto) (0.0-4.0) % Baso % (Auto) (0.0-2.0) % Neut # (Auto) (1.8-7.7) th/mm3 Lymph # (Auto) (1.0-4.8) th/mm3 Lee # (Auto) (0.0-0.9) th/mm3 Eos # (Auto) (0.0-0.4) th/mm3 Baso # (Auto) (0.0-0.2) th/mm3 WBC Differential Seg Neuts % (Manual) (16-70) % Band Neuts % (Manual) (0-6) % Lymphocytes % (Manual) (9-44) % Monocytes % (Manual) (0-8) % Basophils % (Manual) (0-2) % Metamyelocytes % (Man) (0-1) % Abs Neuts (Manual) (1.8-7.7) th/mm3 Differential Comment Platelet Estimate (Normal) Platelet Morphology (Normal) PT (9.8-11.6) sec INR Ratio APTT (24.3-30.1) sec Puncture Site Patient Temperature O2 Saturation (90-100) % ABG pH (7.380-7.420) ABG pCO2 (38-42) mmHg ABG pO2 (61-120) mmHg ABG HCO3 (22-26) mmol/L ABG O2 Content (12.0-20.0) Vol % ABG Base Excess (-2-2) mmol/L ABG Methemoglobin (0-2) % Sea Test Hemoglobin (12.0-16.0) G/DL Carboxyhemoglobin (0-4) % O2 Delivery Device Vent Setting Inspired O2 % Critical Value Sodium 143 (136-145) meq/L Potassium 3.3 L (3.5-5.1) meq/L Chloride 102 (98-107) meq/L Carbon Dioxide 34.5 H (21.0-32.0) meq/L Anion Gap 7 (5-15) meq/L BUN 46 H (7-18) mg/dL Creatinine 1.49 H (0.60-1.30) mg/dL Estimated GFR 46 L (>89) mL/min POC Glucose 180 H 200 H (68-110) mg/dl Random Glucose 157 H (74-106) mg/dL Lactic Acid (0.4-2.0) mmol/L Calcium 8.3 L (8.5-10.1) mg/dL Phosphorus (2.5-4.9) mg/dL Magnesium (1.5-2.5) mg/dL Total Bilirubin (0.2-1.0) mg/dL AST (15-37) U/L ALT (12-78) U/L Alkaline Phosphatase (45-117) U/L Troponin I (0.02-0.05) ng/mL B-Natriuretic Peptide (0-100) pg/mL Total Protein (6.4-8.2) g/dL Albumin (3.4-5.0) g/dL TSH (0.358-3.740) uIU/mL Thyroxine (T4) (4.5-12.1) mcg/dL Urine Color (Yellw/Straw) Urine Clarity (Clear) Urine pH (5.0-8.5) Ur Specific Wells (1.002-1.035) Urine Protein (Neg-Trace) mg/dL Urine Glucose (UA) (Negative) mg/dL Urine Ketones (Negative) mg/dL Urine Occult Blood (Negative) Urine Nitrate (Negative) Urine Bilirubin (Negative) Urine Urobilinogen (Less than 2) mg/dL Ur Leukocyte Esterase (Negative) Urine RBC (0-3) /hpf Urine WBC (0-5) /hpf Ur Squamous Epith Cells (0-5) /hpf Urine Bacteria (None) /hpf Urine Mucus (Occasional) /lpf Urine Yeast (None) /hpf Micro UA Comment Ur Microscopic Review Urine Culture Comments Nasal Screen MRSA (PCR) (Negative) Stool C.difficile Ag (Negative) Stool C.difficile Toxin (Negative) Stl C.difficile DNA Amp (Negative) St C. diff Tox Epid 027 (Negative) Phenytoin 15.6 (10.0-20.0) mcg/mL Free Phenytoin (1.0-2.0) mg/L Valproic Acid (50-100) mcg/mL Phenobarbital 3.3 L (15.0-40.0) mcg/mL Blood Type Antibody Screen MTS Gel Crossmatch 09/08/18 09/08/18 09/08/18 Range/Units 11:57 17:15 17:48 WBC (4.0-11.0) th/mm3 RBC (4.50-5.90) mil/mm3 Hgb (13.0-17.0) gm/dL Hct (39.0-51.0) % MCV (80.0-100.0) fL MCH (27.0-34.0) pg MCHC (32.0-36.0) % RDW (11.6-17.2) % Plt Count (150-450) th/mm3 MPV (7.0-11.0) fL Prelim Diff (Auto) Neut % (Auto) (16.0-70.0) % Lymph % (Auto) (9.0-44.0) % Lee % (Auto) (0.0-8.0) % Eos % (Auto) (0.0-4.0) % Baso % (Auto) (0.0-2.0) % Neut # (Auto) (1.8-7.7) th/mm3 Lymph # (Auto) (1.0-4.8) th/mm3 Lee # (Auto) (0.0-0.9) th/mm3 Eos # (Auto) (0.0-0.4) th/mm3 Baso # (Auto) (0.0-0.2) th/mm3 WBC Differential Seg Neuts % (Manual) (16-70) % Band Neuts % (Manual) (0-6) % Lymphocytes % (Manual) (9-44) % Monocytes % (Manual) (0-8) % Basophils % (Manual) (0-2) % Metamyelocytes % (Man) (0-1) % Abs Neuts (Manual) (1.8-7.7) th/mm3 Differential Comment Platelet Estimate (Normal) Platelet Morphology (Normal) PT (9.8-11.6) sec INR Ratio APTT (24.3-30.1) sec Puncture Site Patient Temperature O2 Saturation (90-100) % ABG pH (7.380-7.420) ABG pCO2 (38-42) mmHg ABG pO2 (61-120) mmHg ABG HCO3 (22-26) mmol/L ABG O2 Content (12.0-20.0) Vol % ABG Base Excess (-2-2) mmol/L ABG Methemoglobin (0-2) % Sea Test Hemoglobin (12.0-16.0) G/DL Carboxyhemoglobin (0-4) % O2 Delivery Device Vent Setting Inspired O2 % Critical Value Sodium (136-145) meq/L Potassium (3.5-5.1) meq/L Chloride (98-107) meq/L Carbon Dioxide (21.0-32.0) meq/L Anion Gap (5-15) meq/L BUN (7-18) mg/dL Creatinine (0.60-1.30) mg/dL Estimated GFR (>89) mL/min POC Glucose 149 H 168 H (68-110) mg/dl Random Glucose (74-106) mg/dL Lactic Acid (0.4-2.0) mmol/L Calcium (8.5-10.1) mg/dL Phosphorus (2.5-4.9) mg/dL Magnesium (1.5-2.5) mg/dL Total Bilirubin (0.2-1.0) mg/dL AST (15-37) U/L ALT (12-78) U/L Alkaline Phosphatase (45-117) U/L Troponin I (0.02-0.05) ng/mL B-Natriuretic Peptide (0-100) pg/mL Total Protein (6.4-8.2) g/dL Albumin (3.4-5.0) g/dL TSH (0.358-3.740) uIU/mL Thyroxine (T4) (4.5-12.1) mcg/dL Urine Color (Yellw/Straw) Urine Clarity (Clear) Urine pH (5.0-8.5) Ur Specific Wells (1.002-1.035) Urine Protein (Neg-Trace) mg/dL Urine Glucose (UA) (Negative) mg/dL Urine Ketones (Negative) mg/dL Urine Occult Blood (Negative) Urine Nitrate (Negative) Urine Bilirubin (Negative) Urine Urobilinogen (Less than 2) mg/dL Ur Leukocyte Esterase (Negative) Urine RBC (0-3) /hpf Urine WBC (0-5) /hpf Ur Squamous Epith Cells (0-5) /hpf Urine Bacteria (None) /hpf Urine Mucus (Occasional) /lpf Urine Yeast (None) /hpf Micro UA Comment Ur Microscopic Review Urine Culture Comments Nasal Screen MRSA (PCR) (Negative) Stool C.difficile Ag Positive H (Negative) Stool C.difficile Toxin Positive H (Negative) Stl C.difficile DNA Amp Positive H (Negative) St C. diff Tox Epid 027 Negative (Negative) Phenytoin (10.0-20.0) mcg/mL Free Phenytoin (1.0-2.0) mg/L Valproic Acid (50-100) mcg/mL Phenobarbital (15.0-40.0) mcg/mL Blood Type Antibody Screen MTS Gel Crossmatch 09/08/18 09/09/18 09/09/18 Range/Units 17:50 00:40 04:18 WBC (4.0-11.0) th/mm3 RBC (4.50-5.90) mil/mm3 Hgb (13.0-17.0) gm/dL Hct (39.0-51.0) % MCV (80.0-100.0) fL MCH (27.0-34.0) pg MCHC (32.0-36.0) % RDW (11.6-17.2) % Plt Count (150-450) th/mm3 MPV (7.0-11.0) fL Prelim Diff (Auto) Neut % (Auto) (16.0-70.0) % Lymph % (Auto) (9.0-44.0) % Lee % (Auto) (0.0-8.0) % Eos % (Auto) (0.0-4.0) % Baso % (Auto) (0.0-2.0) % Neut # (Auto) (1.8-7.7) th/mm3 Lymph # (Auto) (1.0-4.8) th/mm3 Lee # (Auto) (0.0-0.9) th/mm3 Eos # (Auto) (0.0-0.4) th/mm3 Baso # (Auto) (0.0-0.2) th/mm3 WBC Differential Seg Neuts % (Manual) (16-70) % Band Neuts % (Manual) (0-6) % Lymphocytes % (Manual) (9-44) % Monocytes % (Manual) (0-8) % Basophils % (Manual) (0-2) % Metamyelocytes % (Man) (0-1) % Abs Neuts (Manual) (1.8-7.7) th/mm3 Differential Comment Platelet Estimate (Normal) Platelet Morphology (Normal) PT (9.8-11.6) sec INR Ratio APTT (24.3-30.1) sec Puncture Site Patient Temperature O2 Saturation (90-100) % ABG pH (7.380-7.420) ABG pCO2 (38-42) mmHg ABG pO2 (61-120) mmHg ABG HCO3 (22-26) mmol/L ABG O2 Content (12.0-20.0) Vol % ABG Base Excess (-2-2) mmol/L ABG Methemoglobin (0-2) % Sea Test Hemoglobin (12.0-16.0) G/DL Carboxyhemoglobin (0-4) % O2 Delivery Device Vent Setting Inspired O2 % Critical Value Sodium 145 (136-145) meq/L Potassium 3.9 3.6 (3.5-5.1) meq/L Chloride 106 (98-107) meq/L Carbon Dioxide 31.3 (21.0-32.0) meq/L Anion Gap 8 (5-15) meq/L BUN 48 H (7-18) mg/dL Creatinine 1.54 H (0.60-1.30) mg/dL Estimated GFR 44 L (>89) mL/min POC Glucose 174 H (68-110) mg/dl Random Glucose 156 H (74-106) mg/dL Lactic Acid (0.4-2.0) mmol/L Calcium 8.2 L (8.5-10.1) mg/dL Phosphorus (2.5-4.9) mg/dL Magnesium (1.5-2.5) mg/dL Total Bilirubin (0.2-1.0) mg/dL AST (15-37) U/L ALT (12-78) U/L Alkaline Phosphatase (45-117) U/L Troponin I (0.02-0.05) ng/mL B-Natriuretic Peptide (0-100) pg/mL Total Protein (6.4-8.2) g/dL Albumin (3.4-5.0) g/dL TSH (0.358-3.740) uIU/mL Thyroxine (T4) (4.5-12.1) mcg/dL Urine Color (Yellw/Straw) Urine Clarity (Clear) Urine pH (5.0-8.5) Ur Specific Wells (1.002-1.035) Urine Protein (Neg-Trace) mg/dL Urine Glucose (UA) (Negative) mg/dL Urine Ketones (Negative) mg/dL Urine Occult Blood (Negative) Urine Nitrate (Negative) Urine Bilirubin (Negative) Urine Urobilinogen (Less than 2) mg/dL Ur Leukocyte Esterase (Negative) Urine RBC (0-3) /hpf Urine WBC (0-5) /hpf Ur Squamous Epith Cells (0-5) /hpf Urine Bacteria (None) /hpf Urine Mucus (Occasional) /lpf Urine Yeast (None) /hpf Micro UA Comment Ur Microscopic Review Urine Culture Comments Nasal Screen MRSA (PCR) (Negative) Stool C.difficile Ag (Negative) Stool C.difficile Toxin (Negative) Stl C.difficile DNA Amp (Negative) St C. diff Tox Epid 027 (Negative) Phenytoin 15.1 (10.0-20.0) mcg/mL Free Phenytoin (1.0-2.0) mg/L Valproic Acid (50-100) mcg/mL Phenobarbital 5.9 L (15.0-40.0) mcg/mL Blood Type Antibody Screen MTS Gel Crossmatch 09/09/18 09/09/18 09/09/18 Range/Units 11:55 18:41 21:14 WBC (4.0-11.0) th/mm3 RBC (4.50-5.90) mil/mm3 Hgb (13.0-17.0) gm/dL Hct (39.0-51.0) % MCV (80.0-100.0) fL MCH (27.0-34.0) pg MCHC (32.0-36.0) % RDW (11.6-17.2) % Plt Count (150-450) th/mm3 MPV (7.0-11.0) fL Prelim Diff (Auto) Neut % (Auto) (16.0-70.0) % Lymph % (Auto) (9.0-44.0) % Lee % (Auto) (0.0-8.0) % Eos % (Auto) (0.0-4.0) % Baso % (Auto) (0.0-2.0) % Neut # (Auto) (1.8-7.7) th/mm3 Lymph # (Auto) (1.0-4.8) th/mm3 Lee # (Auto) (0.0-0.9) th/mm3 Eos # (Auto) (0.0-0.4) th/mm3 Baso # (Auto) (0.0-0.2) th/mm3 WBC Differential Seg Neuts % (Manual) (16-70) % Band Neuts % (Manual) (0-6) % Lymphocytes % (Manual) (9-44) % Monocytes % (Manual) (0-8) % Basophils % (Manual) (0-2) % Metamyelocytes % (Man) (0-1) % Abs Neuts (Manual) (1.8-7.7) th/mm3 Differential Comment Platelet Estimate (Normal) Platelet Morphology (Normal) PT (9.8-11.6) sec INR Ratio APTT (24.3-30.1) sec Puncture Site Patient Temperature O2 Saturation (90-100) % ABG pH (7.380-7.420) ABG pCO2 (38-42) mmHg ABG pO2 (61-120) mmHg ABG HCO3 (22-26) mmol/L ABG O2 Content (12.0-20.0) Vol % ABG Base Excess (-2-2) mmol/L ABG Methemoglobin (0-2) % Sea Test Hemoglobin (12.0-16.0) G/DL Carboxyhemoglobin (0-4) % O2 Delivery Device Vent Setting Inspired O2 % Critical Value Sodium (136-145) meq/L Potassium (3.5-5.1) meq/L Chloride (98-107) meq/L Carbon Dioxide (21.0-32.0) meq/L Anion Gap (5-15) meq/L BUN (7-18) mg/dL Creatinine (0.60-1.30) mg/dL Estimated GFR (>89) mL/min POC Glucose 186 H 143 H 351 H (68-110) mg/dl Random Glucose (74-106) mg/dL Lactic Acid (0.4-2.0) mmol/L Calcium (8.5-10.1) mg/dL Phosphorus (2.5-4.9) mg/dL Magnesium (1.5-2.5) mg/dL Total Bilirubin (0.2-1.0) mg/dL AST (15-37) U/L ALT (12-78) U/L Alkaline Phosphatase (45-117) U/L Troponin I (0.02-0.05) ng/mL B-Natriuretic Peptide (0-100) pg/mL Total Protein (6.4-8.2) g/dL Albumin (3.4-5.0) g/dL TSH (0.358-3.740) uIU/mL Thyroxine (T4) (4.5-12.1) mcg/dL Urine Color (Yellw/Straw) Urine Clarity (Clear) Urine pH (5.0-8.5) Ur Specific Wells (1.002-1.035) Urine Protein (Neg-Trace) mg/dL Urine Glucose (UA) (Negative) mg/dL Urine Ketones (Negative) mg/dL Urine Occult Blood (Negative) Urine Nitrate (Negative) Urine Bilirubin (Negative) Urine Urobilinogen (Less than 2) mg/dL Ur Leukocyte Esterase (Negative) Urine RBC (0-3) /hpf Urine WBC (0-5) /hpf Ur Squamous Epith Cells (0-5) /hpf Urine Bacteria (None) /hpf Urine Mucus (Occasional) /lpf Urine Yeast (None) /hpf Micro UA Comment Ur Microscopic Review Urine Culture Comments Nasal Screen MRSA (PCR) (Negative) Stool C.difficile Ag (Negative) Stool C.difficile Toxin (Negative) Stl C.difficile DNA Amp (Negative) St C. diff Tox Epid 027 (Negative) Phenytoin (10.0-20.0) mcg/mL Free Phenytoin (1.0-2.0) mg/L Valproic Acid (50-100) mcg/mL Phenobarbital (15.0-40.0) mcg/mL Blood Type Antibody Screen MTS Gel Crossmatch 09/10/18 09/10/18 09/10/18 Range/Units 00:19 05:10 05:10 WBC (4.0-11.0) th/mm3 RBC (4.50-5.90) mil/mm3 Hgb (13.0-17.0) gm/dL Hct (39.0-51.0) % MCV (80.0-100.0) fL MCH (27.0-34.0) pg MCHC (32.0-36.0) % RDW (11.6-17.2) % Plt Count (150-450) th/mm3 MPV (7.0-11.0) fL Prelim Diff (Auto) Neut % (Auto) (16.0-70.0) % Lymph % (Auto) (9.0-44.0) % Lee % (Auto) (0.0-8.0) % Eos % (Auto) (0.0-4.0) % Baso % (Auto) (0.0-2.0) % Neut # (Auto) (1.8-7.7) th/mm3 Lymph # (Auto) (1.0-4.8) th/mm3 Lee # (Auto) (0.0-0.9) th/mm3 Eos # (Auto) (0.0-0.4) th/mm3 Baso # (Auto) (0.0-0.2) th/mm3 WBC Differential Seg Neuts % (Manual) (16-70) % Band Neuts % (Manual) (0-6) % Lymphocytes % (Manual) (9-44) % Monocytes % (Manual) (0-8) % Basophils % (Manual) (0-2) % Metamyelocytes % (Man) (0-1) % Abs Neuts (Manual) (1.8-7.7) th/mm3 Differential Comment Platelet Estimate (Normal) Platelet Morphology (Normal) PT (9.8-11.6) sec INR Ratio APTT (24.3-30.1) sec Puncture Site Patient Temperature O2 Saturation (90-100) % ABG pH (7.380-7.420) ABG pCO2 (38-42) mmHg ABG pO2 (61-120) mmHg ABG HCO3 (22-26) mmol/L ABG O2 Content (12.0-20.0) Vol % ABG Base Excess (-2-2) mmol/L ABG Methemoglobin (0-2) % Sea Test Hemoglobin (12.0-16.0) G/DL Carboxyhemoglobin (0-4) % O2 Delivery Device Vent Setting Inspired O2 % Critical Value Sodium 146 H (136-145) meq/L Potassium 4.2 (3.5-5.1) meq/L Chloride 110 H (98-107) meq/L Carbon Dioxide 27.5 (21.0-32.0) meq/L Anion Gap 9 (5-15) meq/L BUN 51 H (7-18) mg/dL Creatinine 1.43 H (0.60-1.30) mg/dL Estimated GFR 48 L (>89) mL/min POC Glucose 135 H (68-110) mg/dl Random Glucose 159 H (74-106) mg/dL Lactic Acid (0.4-2.0) mmol/L Calcium 8.4 L (8.5-10.1) mg/dL Phosphorus 2.4 L (2.5-4.9) mg/dL Magnesium 2.3 (1.5-2.5) mg/dL Total Bilirubin (0.2-1.0) mg/dL AST (15-37) U/L ALT (12-78) U/L Alkaline Phosphatase (45-117) U/L Troponin I (0.02-0.05) ng/mL B-Natriuretic Peptide (0-100) pg/mL Total Protein (6.4-8.2) g/dL Albumin (3.4-5.0) g/dL TSH (0.358-3.740) uIU/mL Thyroxine (T4) (4.5-12.1) mcg/dL Urine Color (Yellw/Straw) Urine Clarity (Clear) Urine pH (5.0-8.5) Ur Specific Wells (1.002-1.035) Urine Protein (Neg-Trace) mg/dL Urine Glucose (UA) (Negative) mg/dL Urine Ketones (Negative) mg/dL Urine Occult Blood (Negative) Urine Nitrate (Negative) Urine Bilirubin (Negative) Urine Urobilinogen (Less than 2) mg/dL Ur Leukocyte Esterase (Negative) Urine RBC (0-3) /hpf Urine WBC (0-5) /hpf Ur Squamous Epith Cells (0-5) /hpf Urine Bacteria (None) /hpf Urine Mucus (Occasional) /lpf Urine Yeast (None) /hpf Micro UA Comment Ur Microscopic Review Urine Culture Comments Nasal Screen MRSA (PCR) (Negative) Stool C.difficile Ag (Negative) Stool C.difficile Toxin (Negative) Stl C.difficile DNA Amp (Negative) St C. diff Tox Epid 027 (Negative) Phenytoin 19.8 (10.0-20.0) mcg/mL Free Phenytoin (1.0-2.0) mg/L Valproic Acid (50-100) mcg/mL Phenobarbital 7.2 L (15.0-40.0) mcg/mL Blood Type Antibody Screen MTS Gel Crossmatch 09/10/18 09/10/18 09/10/18 Range/Units 13:18 18:03 23:14 WBC (4.0-11.0) th/mm3 RBC (4.50-5.90) mil/mm3 Hgb (13.0-17.0) gm/dL Hct (39.0-51.0) % MCV (80.0-100.0) fL MCH (27.0-34.0) pg MCHC (32.0-36.0) % RDW (11.6-17.2) % Plt Count (150-450) th/mm3 MPV (7.0-11.0) fL Prelim Diff (Auto) Neut % (Auto) (16.0-70.0) % Lymph % (Auto) (9.0-44.0) % Lee % (Auto) (0.0-8.0) % Eos % (Auto) (0.0-4.0) % Baso % (Auto) (0.0-2.0) % Neut # (Auto) (1.8-7.7) th/mm3 Lymph # (Auto) (1.0-4.8) th/mm3 Lee # (Auto) (0.0-0.9) th/mm3 Eos # (Auto) (0.0-0.4) th/mm3 Baso # (Auto) (0.0-0.2) th/mm3 WBC Differential Seg Neuts % (Manual) (16-70) % Band Neuts % (Manual) (0-6) % Lymphocytes % (Manual) (9-44) % Monocytes % (Manual) (0-8) % Basophils % (Manual) (0-2) % Metamyelocytes % (Man) (0-1) % Abs Neuts (Manual) (1.8-7.7) th/mm3 Differential Comment Platelet Estimate (Normal) Platelet Morphology (Normal) PT (9.8-11.6) sec INR Ratio APTT (24.3-30.1) sec Puncture Site Patient Temperature O2 Saturation (90-100) % ABG pH (7.380-7.420) ABG pCO2 (38-42) mmHg ABG pO2 (61-120) mmHg ABG HCO3 (22-26) mmol/L ABG O2 Content (12.0-20.0) Vol % ABG Base Excess (-2-2) mmol/L ABG Methemoglobin (0-2) % Sea Test Hemoglobin (12.0-16.0) G/DL Carboxyhemoglobin (0-4) % O2 Delivery Device Vent Setting Inspired O2 % Critical Value Sodium (136-145) meq/L Potassium (3.5-5.1) meq/L Chloride (98-107) meq/L Carbon Dioxide (21.0-32.0) meq/L Anion Gap (5-15) meq/L BUN (7-18) mg/dL Creatinine (0.60-1.30) mg/dL Estimated GFR (>89) mL/min POC Glucose 161 H 145 H 164 H (68-110) mg/dl Random Glucose (74-106) mg/dL Lactic Acid (0.4-2.0) mmol/L Calcium (8.5-10.1) mg/dL Phosphorus (2.5-4.9) mg/dL Magnesium (1.5-2.5) mg/dL Total Bilirubin (0.2-1.0) mg/dL AST (15-37) U/L ALT (12-78) U/L Alkaline Phosphatase (45-117) U/L Troponin I (0.02-0.05) ng/mL B-Natriuretic Peptide (0-100) pg/mL Total Protein (6.4-8.2) g/dL Albumin (3.4-5.0) g/dL TSH (0.358-3.740) uIU/mL Thyroxine (T4) (4.5-12.1) mcg/dL Urine Color (Yellw/Straw) Urine Clarity (Clear) Urine pH (5.0-8.5) Ur Specific Wells (1.002-1.035) Urine Protein (Neg-Trace) mg/dL Urine Glucose (UA) (Negative) mg/dL Urine Ketones (Negative) mg/dL Urine Occult Blood (Negative) Urine Nitrate (Negative) Urine Bilirubin (Negative) Urine Urobilinogen (Less than 2) mg/dL Ur Leukocyte Esterase (Negative) Urine RBC (0-3) /hpf Urine WBC (0-5) /hpf Ur Squamous Epith Cells (0-5) /hpf Urine Bacteria (None) /hpf Urine Mucus (Occasional) /lpf Urine Yeast (None) /hpf Micro UA Comment Ur Microscopic Review Urine Culture Comments Nasal Screen MRSA (PCR) (Negative) Stool C.difficile Ag (Negative) Stool C.difficile Toxin (Negative) Stl C.difficile DNA Amp (Negative) St C. diff Tox Epid 027 (Negative) Phenytoin (10.0-20.0) mcg/mL Free Phenytoin (1.0-2.0) mg/L Valproic Acid (50-100) mcg/mL Phenobarbital (15.0-40.0) mcg/mL Blood Type Antibody Screen MTS Gel Crossmatch 09/11/18 09/11/18 09/12/18 Range/Units 02:35 04:43 00:24 WBC (4.0-11.0) th/mm3 RBC (4.50-5.90) mil/mm3 Hgb (13.0-17.0) gm/dL Hct (39.0-51.0) % MCV (80.0-100.0) fL MCH (27.0-34.0) pg MCHC (32.0-36.0) % RDW (11.6-17.2) % Plt Count (150-450) th/mm3 MPV (7.0-11.0) fL Prelim Diff (Auto) Neut % (Auto) (16.0-70.0) % Lymph % (Auto) (9.0-44.0) % Lee % (Auto) (0.0-8.0) % Eos % (Auto) (0.0-4.0) % Baso % (Auto) (0.0-2.0) % Neut # (Auto) (1.8-7.7) th/mm3 Lymph # (Auto) (1.0-4.8) th/mm3 Lee # (Auto) (0.0-0.9) th/mm3 Eos # (Auto) (0.0-0.4) th/mm3 Baso # (Auto) (0.0-0.2) th/mm3 WBC Differential Seg Neuts % (Manual) (16-70) % Band Neuts % (Manual) (0-6) % Lymphocytes % (Manual) (9-44) % Monocytes % (Manual) (0-8) % Basophils % (Manual) (0-2) % Metamyelocytes % (Man) (0-1) % Abs Neuts (Manual) (1.8-7.7) th/mm3 Differential Comment Platelet Estimate (Normal) Platelet Morphology (Normal) PT (9.8-11.6) sec INR Ratio APTT (24.3-30.1) sec Puncture Site Patient Temperature O2 Saturation (90-100) % ABG pH (7.380-7.420) ABG pCO2 (38-42) mmHg ABG pO2 (61-120) mmHg ABG HCO3 (22-26) mmol/L ABG O2 Content (12.0-20.0) Vol % ABG Base Excess (-2-2) mmol/L ABG Methemoglobin (0-2) % Sea Test Hemoglobin (12.0-16.0) G/DL Carboxyhemoglobin (0-4) % O2 Delivery Device Vent Setting Inspired O2 % Critical Value Sodium 149 H (136-145) meq/L Potassium 4.5 (3.5-5.1) meq/L Chloride 114 H (98-107) meq/L Carbon Dioxide 26.6 (21.0-32.0) meq/L Anion Gap 8 (5-15) meq/L BUN 60 H (7-18) mg/dL Creatinine 1.39 H (0.60-1.30) mg/dL Estimated GFR 49 L (>89) mL/min POC Glucose 180 H 224 H (68-110) mg/dl Random Glucose 158 H (74-106) mg/dL Lactic Acid (0.4-2.0) mmol/L Calcium 8.4 L (8.5-10.1) mg/dL Phosphorus (2.5-4.9) mg/dL Magnesium (1.5-2.5) mg/dL Total Bilirubin (0.2-1.0) mg/dL AST (15-37) U/L ALT (12-78) U/L Alkaline Phosphatase (45-117) U/L Troponin I (0.02-0.05) ng/mL B-Natriuretic Peptide (0-100) pg/mL Total Protein (6.4-8.2) g/dL Albumin 2.5 L (3.4-5.0) g/dL TSH (0.358-3.740) uIU/mL Thyroxine (T4) (4.5-12.1) mcg/dL Urine Color (Yellw/Straw) Urine Clarity (Clear) Urine pH (5.0-8.5) Ur Specific Wells (1.002-1.035) Urine Protein (Neg-Trace) mg/dL Urine Glucose (UA) (Negative) mg/dL Urine Ketones (Negative) mg/dL Urine Occult Blood (Negative) Urine Nitrate (Negative) Urine Bilirubin (Negative) Urine Urobilinogen (Less than 2) mg/dL Ur Leukocyte Esterase (Negative) Urine RBC (0-3) /hpf Urine WBC (0-5) /hpf Ur Squamous Epith Cells (0-5) /hpf Urine Bacteria (None) /hpf Urine Mucus (Occasional) /lpf Urine Yeast (None) /hpf Micro UA Comment Ur Microscopic Review Urine Culture Comments Nasal Screen MRSA (PCR) (Negative) Stool C.difficile Ag (Negative) Stool C.difficile Toxin (Negative) Stl C.difficile DNA Amp (Negative) St C. diff Tox Epid 027 (Negative) Phenytoin 18.3 (10.0-20.0) mcg/mL Free Phenytoin (1.0-2.0) mg/L Valproic Acid (50-100) mcg/mL Phenobarbital 9.7 L (15.0-40.0) mcg/mL Blood Type Antibody Screen MTS Gel Crossmatch 09/12/18 09/12/18 09/12/18 Range/Units 04:11 06:03 10:10 WBC 8.2 (4.0-11.0) th/mm3 RBC 2.71 L (4.50-5.90) mil/mm3 Hgb 9.4 L (13.0-17.0) gm/dL Hct 29.5 L (39.0-51.0) % MCV 108.9 H (80.0-100.0) fL MCH 34.7 H (27.0-34.0) pg MCHC 31.9 L (32.0-36.0) % RDW 17.0 (11.6-17.2) % Plt Count 161 (150-450) th/mm3 MPV 9.1 (7.0-11.0) fL Prelim Diff (Auto) Neut % (Auto) (16.0-70.0) % Lymph % (Auto) (9.0-44.0) % Lee % (Auto) (0.0-8.0) % Eos % (Auto) (0.0-4.0) % Baso % (Auto) (0.0-2.0) % Neut # (Auto) (1.8-7.7) th/mm3 Lymph # (Auto) (1.0-4.8) th/mm3 Lee # (Auto) (0.0-0.9) th/mm3 Eos # (Auto) (0.0-0.4) th/mm3 Baso # (Auto) (0.0-0.2) th/mm3 WBC Differential Seg Neuts % (Manual) (16-70) % Band Neuts % (Manual) (0-6) % Lymphocytes % (Manual) (9-44) % Monocytes % (Manual) (0-8) % Basophils % (Manual) (0-2) % Metamyelocytes % (Man) (0-1) % Abs Neuts (Manual) (1.8-7.7) th/mm3 Differential Comment Platelet Estimate (Normal) Platelet Morphology (Normal) PT (9.8-11.6) sec INR Ratio APTT (24.3-30.1) sec Puncture Site Patient Temperature O2 Saturation (90-100) % ABG pH (7.380-7.420) ABG pCO2 (38-42) mmHg ABG pO2 (61-120) mmHg ABG HCO3 (22-26) mmol/L ABG O2 Content (12.0-20.0) Vol % ABG Base Excess (-2-2) mmol/L ABG Methemoglobin (0-2) % Sea Test Hemoglobin (12.0-16.0) G/DL Carboxyhemoglobin (0-4) % O2 Delivery Device Vent Setting Inspired O2 % Critical Value Sodium 147 H (136-145) meq/L Potassium 4.3 (3.5-5.1) meq/L Chloride 116 H (98-107) meq/L Carbon Dioxide 23.6 (21.0-32.0) meq/L Anion Gap 7 (5-15) meq/L BUN 66 H (7-18) mg/dL Creatinine 1.57 H (0.60-1.30) mg/dL Estimated GFR 43 L (>89) mL/min POC Glucose 173 H (68-110) mg/dl Random Glucose 156 H (74-106) mg/dL Lactic Acid (0.4-2.0) mmol/L Calcium 8.5 (8.5-10.1) mg/dL Phosphorus 2.5 (2.5-4.9) mg/dL Magnesium 2.3 (1.5-2.5) mg/dL Total Bilirubin (0.2-1.0) mg/dL AST (15-37) U/L ALT (12-78) U/L Alkaline Phosphatase (45-117) U/L Troponin I (0.02-0.05) ng/mL B-Natriuretic Peptide (0-100) pg/mL Total Protein (6.4-8.2) g/dL Albumin (3.4-5.0) g/dL TSH (0.358-3.740) uIU/mL Thyroxine (T4) (4.5-12.1) mcg/dL Urine Color (Yellw/Straw) Urine Clarity (Clear) Urine pH (5.0-8.5) Ur Specific Wells (1.002-1.035) Urine Protein (Neg-Trace) mg/dL Urine Glucose (UA) (Negative) mg/dL Urine Ketones (Negative) mg/dL Urine Occult Blood (Negative) Urine Nitrate (Negative) Urine Bilirubin (Negative) Urine Urobilinogen (Less than 2) mg/dL Ur Leukocyte Esterase (Negative) Urine RBC (0-3) /hpf Urine WBC (0-5) /hpf Ur Squamous Epith Cells (0-5) /hpf Urine Bacteria (None) /hpf Urine Mucus (Occasional) /lpf Urine Yeast (None) /hpf Micro UA Comment Ur Microscopic Review Urine Culture Comments Nasal Screen MRSA (PCR) (Negative) Stool C.difficile Ag (Negative) Stool C.difficile Toxin (Negative) Stl C.difficile DNA Amp (Negative) St C. diff Tox Epid 027 (Negative) Phenytoin 12.9 (10.0-20.0) mcg/mL Free Phenytoin (1.0-2.0) mg/L Valproic Acid (50-100) mcg/mL Phenobarbital 12.9 L (15.0-40.0) mcg/mL Blood Type Antibody Screen MTS Gel Crossmatch 09/12/18 09/12/18 09/12/18 Range/Units 10:20 10:20 11:50 WBC (4.0-11.0) th/mm3 RBC (4.50-5.90) mil/mm3 Hgb (13.0-17.0) gm/dL Hct (39.0-51.0) % MCV (80.0-100.0) fL MCH (27.0-34.0) pg MCHC (32.0-36.0) % RDW (11.6-17.2) % Plt Count (150-450) th/mm3 MPV (7.0-11.0) fL Prelim Diff (Auto) Neut % (Auto) (16.0-70.0) % Lymph % (Auto) (9.0-44.0) % Lee % (Auto) (0.0-8.0) % Eos % (Auto) (0.0-4.0) % Baso % (Auto) (0.0-2.0) % Neut # (Auto) (1.8-7.7) th/mm3 Lymph # (Auto) (1.0-4.8) th/mm3 Lee # (Auto) (0.0-0.9) th/mm3 Eos # (Auto) (0.0-0.4) th/mm3 Baso # (Auto) (0.0-0.2) th/mm3 WBC Differential Seg Neuts % (Manual) (16-70) % Band Neuts % (Manual) (0-6) % Lymphocytes % (Manual) (9-44) % Monocytes % (Manual) (0-8) % Basophils % (Manual) (0-2) % Metamyelocytes % (Man) (0-1) % Abs Neuts (Manual) (1.8-7.7) th/mm3 Differential Comment Platelet Estimate (Normal) Platelet Morphology (Normal) PT (9.8-11.6) sec INR Ratio APTT (24.3-30.1) sec Puncture Site Patient Temperature O2 Saturation (90-100) % ABG pH (7.380-7.420) ABG pCO2 (38-42) mmHg ABG pO2 (61-120) mmHg ABG HCO3 (22-26) mmol/L ABG O2 Content (12.0-20.0) Vol % ABG Base Excess (-2-2) mmol/L ABG Methemoglobin (0-2) % Sea Test Hemoglobin (12.0-16.0) G/DL Carboxyhemoglobin (0-4) % O2 Delivery Device Vent Setting Inspired O2 % Critical Value Sodium (136-145) meq/L Potassium (3.5-5.1) meq/L Chloride (98-107) meq/L Carbon Dioxide (21.0-32.0) meq/L Anion Gap (5-15) meq/L BUN (7-18) mg/dL Creatinine (0.60-1.30) mg/dL Estimated GFR (>89) mL/min POC Glucose 139 H (68-110) mg/dl Random Glucose (74-106) mg/dL Lactic Acid (0.4-2.0) mmol/L Calcium (8.5-10.1) mg/dL Phosphorus (2.5-4.9) mg/dL Magnesium (1.5-2.5) mg/dL Total Bilirubin (0.2-1.0) mg/dL AST (15-37) U/L ALT (12-78) U/L Alkaline Phosphatase (45-117) U/L Troponin I (0.02-0.05) ng/mL B-Natriuretic Peptide (0-100) pg/mL Total Protein (6.4-8.2) g/dL Albumin (3.4-5.0) g/dL TSH (0.358-3.740) uIU/mL Thyroxine (T4) (4.5-12.1) mcg/dL Urine Color (Yellw/Straw) Urine Clarity (Clear) Urine pH (5.0-8.5) Ur Specific Wells (1.002-1.035) Urine Protein (Neg-Trace) mg/dL Urine Glucose (UA) (Negative) mg/dL Urine Ketones (Negative) mg/dL Urine Occult Blood (Negative) Urine Nitrate (Negative) Urine Bilirubin (Negative) Urine Urobilinogen (Less than 2) mg/dL Ur Leukocyte Esterase (Negative) Urine RBC (0-3) /hpf Urine WBC (0-5) /hpf Ur Squamous Epith Cells (0-5) /hpf Urine Bacteria (None) /hpf Urine Mucus (Occasional) /lpf Urine Yeast (None) /hpf Micro UA Comment Ur Microscopic Review Urine Culture Comments Nasal Screen MRSA (PCR) (Negative) Stool C.difficile Ag (Negative) Stool C.difficile Toxin (Negative) Stl C.difficile DNA Amp (Negative) St C. diff Tox Epid 027 (Negative) Phenytoin (10.0-20.0) mcg/mL Free Phenytoin 2.2 H (1.0-2.0) mg/L Valproic Acid 49 L (50-100) mcg/mL Phenobarbital 15.0 (15.0-40.0) mcg/mL Blood Type Antibody Screen MTS Gel Crossmatch 09/12/18 09/12/18 09/13/18 Range/Units 16:42 18:14 00:05 WBC (4.0-11.0) th/mm3 RBC (4.50-5.90) mil/mm3 Hgb (13.0-17.0) gm/dL Hct (39.0-51.0) % MCV (80.0-100.0) fL MCH (27.0-34.0) pg MCHC (32.0-36.0) % RDW (11.6-17.2) % Plt Count (150-450) th/mm3 MPV (7.0-11.0) fL Prelim Diff (Auto) Neut % (Auto) (16.0-70.0) % Lymph % (Auto) (9.0-44.0) % Lee % (Auto) (0.0-8.0) % Eos % (Auto) (0.0-4.0) % Baso % (Auto) (0.0-2.0) % Neut # (Auto) (1.8-7.7) th/mm3 Lymph # (Auto) (1.0-4.8) th/mm3 Lee # (Auto) (0.0-0.9) th/mm3 Eos # (Auto) (0.0-0.4) th/mm3 Baso # (Auto) (0.0-0.2) th/mm3 WBC Differential Seg Neuts % (Manual) (16-70) % Band Neuts % (Manual) (0-6) % Lymphocytes % (Manual) (9-44) % Monocytes % (Manual) (0-8) % Basophils % (Manual) (0-2) % Metamyelocytes % (Man) (0-1) % Abs Neuts (Manual) (1.8-7.7) th/mm3 Differential Comment Platelet Estimate (Normal) Platelet Morphology (Normal) PT (9.8-11.6) sec INR Ratio APTT (24.3-30.1) sec Puncture Site Patient Temperature O2 Saturation (90-100) % ABG pH (7.380-7.420) ABG pCO2 (38-42) mmHg ABG pO2 (61-120) mmHg ABG HCO3 (22-26) mmol/L ABG O2 Content (12.0-20.0) Vol % ABG Base Excess (-2-2) mmol/L ABG Methemoglobin (0-2) % Sea Test Hemoglobin (12.0-16.0) G/DL Carboxyhemoglobin (0-4) % O2 Delivery Device Vent Setting Inspired O2 % Critical Value Sodium (136-145) meq/L Potassium (3.5-5.1) meq/L Chloride (98-107) meq/L Carbon Dioxide (21.0-32.0) meq/L Anion Gap (5-15) meq/L BUN (7-18) mg/dL Creatinine (0.60-1.30) mg/dL Estimated GFR (>89) mL/min POC Glucose 159 H 202 H (68-110) mg/dl Random Glucose (74-106) mg/dL Lactic Acid (0.4-2.0) mmol/L Calcium (8.5-10.1) mg/dL Phosphorus (2.5-4.9) mg/dL Magnesium (1.5-2.5) mg/dL Total Bilirubin (0.2-1.0) mg/dL AST (15-37) U/L ALT (12-78) U/L Alkaline Phosphatase (45-117) U/L Troponin I (0.02-0.05) ng/mL B-Natriuretic Peptide (0-100) pg/mL Total Protein (6.4-8.2) g/dL Albumin (3.4-5.0) g/dL TSH (0.358-3.740) uIU/mL Thyroxine (T4) (4.5-12.1) mcg/dL Urine Color (Yellw/Straw) Urine Clarity (Clear) Urine pH (5.0-8.5) Ur Specific Wells (1.002-1.035) Urine Protein (Neg-Trace) mg/dL Urine Glucose (UA) (Negative) mg/dL Urine Ketones (Negative) mg/dL Urine Occult Blood (Negative) Urine Nitrate (Negative) Urine Bilirubin (Negative) Urine Urobilinogen (Less than 2) mg/dL Ur Leukocyte Esterase (Negative) Urine RBC (0-3) /hpf Urine WBC (0-5) /hpf Ur Squamous Epith Cells (0-5) /hpf Urine Bacteria (None) /hpf Urine Mucus (Occasional) /lpf Urine Yeast (None) /hpf Micro UA Comment Ur Microscopic Review Urine Culture Comments Nasal Screen MRSA (PCR) (Negative) Stool C.difficile Ag (Negative) Stool C.difficile Toxin (Negative) Stl C.difficile DNA Amp (Negative) St C. diff Tox Epid 027 (Negative) Phenytoin (10.0-20.0) mcg/mL Free Phenytoin (1.0-2.0) mg/L Valproic Acid (50-100) mcg/mL Phenobarbital (15.0-40.0) mcg/mL Blood Type A Positive Antibody Screen Negative MTS Gel Crossmatch See Detail 09/13/18 09/13/18 09/13/18 Range/Units 05:30 05:30 11:51 WBC 7.2 (4.0-11.0) th/mm3 RBC 2.59 L (4.50-5.90) mil/mm3 Hgb 9.1 L (13.0-17.0) gm/dL Hct 27.8 L (39.0-51.0) % MCV 107.5 H (80.0-100.0) fL MCH 35.2 H (27.0-34.0) pg MCHC 32.7 (32.0-36.0) % RDW 16.8 (11.6-17.2) % Plt Count 157 (150-450) th/mm3 MPV 9.2 (7.0-11.0) fL Prelim Diff (Auto) Slide review pending Neut % (Auto) (16.0-70.0) % Lymph % (Auto) (9.0-44.0) % Lee % (Auto) (0.0-8.0) % Eos % (Auto) (0.0-4.0) % Baso % (Auto) (0.0-2.0) % Neut # (Auto) (1.8-7.7) th/mm3 Lymph # (Auto) (1.0-4.8) th/mm3 Lee # (Auto) (0.0-0.9) th/mm3 Eos # (Auto) (0.0-0.4) th/mm3 Baso # (Auto) (0.0-0.2) th/mm3 WBC Differential Manual diff final Seg Neuts % (Manual) 85 H (16-70) % Band Neuts % (Manual) 7 H (0-6) % Lymphocytes % (Manual) 3 L (9-44) % Monocytes % (Manual) 3 (0-8) % Basophils % (Manual) 1 (0-2) % Metamyelocytes % (Man) 1 (0-1) % Abs Neuts (Manual) 6.7 (1.8-7.7) th/mm3 Differential Comment . Platelet Estimate Normal (Normal) Platelet Morphology Normal (Normal) PT (9.8-11.6) sec INR Ratio APTT (24.3-30.1) sec Puncture Site Deja Patient Temperature 98.6 O2 Saturation 97 (90-100) % ABG pH 7.39 (7.380-7.420) ABG pCO2 37 L (38-42) mmHg ABG pO2 181 H (61-120) mmHg ABG HCO3 22 (22-26) mmol/L ABG O2 Content 14.2 (12.0-20.0) Vol % ABG Base Excess -1.9 (-2-2) mmol/L ABG Methemoglobin 1.0 (0-2) % Sea Test Present Hemoglobin 10.1 L (12.0-16.0) G/DL Carboxyhemoglobin 1.6 (0-4) % O2 Delivery Device Ventilator Vent Setting See comments Inspired O2 40 % Critical Value No Sodium 151 H (136-145) meq/L Potassium 4.4 (3.5-5.1) meq/L Chloride 117 H (98-107) meq/L Carbon Dioxide 25.7 (21.0-32.0) meq/L Anion Gap 8 (5-15) meq/L BUN 66 H (7-18) mg/dL Creatinine 1.40 H (0.60-1.30) mg/dL Estimated GFR 49 L (>89) mL/min POC Glucose (68-110) mg/dl Random Glucose 150 H (74-106) mg/dL Lactic Acid (0.4-2.0) mmol/L Calcium 8.5 (8.5-10.1) mg/dL Phosphorus 4.1 D (2.5-4.9) mg/dL Magnesium 2.4 (1.5-2.5) mg/dL Total Bilirubin (0.2-1.0) mg/dL AST (15-37) U/L ALT (12-78) U/L Alkaline Phosphatase (45-117) U/L Troponin I (0.02-0.05) ng/mL B-Natriuretic Peptide (0-100) pg/mL Total Protein (6.4-8.2) g/dL Albumin (3.4-5.0) g/dL TSH (0.358-3.740) uIU/mL Thyroxine (T4) (4.5-12.1) mcg/dL Urine Color (Yellw/Straw) Urine Clarity (Clear) Urine pH (5.0-8.5) Ur Specific Wells (1.002-1.035) Urine Protein (Neg-Trace) mg/dL Urine Glucose (UA) (Negative) mg/dL Urine Ketones (Negative) mg/dL Urine Occult Blood (Negative) Urine Nitrate (Negative) Urine Bilirubin (Negative) Urine Urobilinogen (Less than 2) mg/dL Ur Leukocyte Esterase (Negative) Urine RBC (0-3) /hpf Urine WBC (0-5) /hpf Ur Squamous Epith Cells (0-5) /hpf Urine Bacteria (None) /hpf Urine Mucus (Occasional) /lpf Urine Yeast (None) /hpf Micro UA Comment Ur Microscopic Review Urine Culture Comments Nasal Screen MRSA (PCR) (Negative) Stool C.difficile Ag (Negative) Stool C.difficile Toxin (Negative) Stl C.difficile DNA Amp (Negative) St C. diff Tox Epid 027 (Negative) Phenytoin (10.0-20.0) mcg/mL Free Phenytoin (1.0-2.0) mg/L Valproic Acid (50-100) mcg/mL Phenobarbital 18.2 (15.0-40.0) mcg/mL Blood Type Antibody Screen MTS Gel Crossmatch 09/13/18 09/13/18 09/13/18 Range/Units 12:30 12:38 17:51 WBC (4.0-11.0) th/mm3 RBC (4.50-5.90) mil/mm3 Hgb (13.0-17.0) gm/dL Hct (39.0-51.0) % MCV (80.0-100.0) fL MCH (27.0-34.0) pg MCHC (32.0-36.0) % RDW (11.6-17.2) % Plt Count (150-450) th/mm3 MPV (7.0-11.0) fL Prelim Diff (Auto) Neut % (Auto) (16.0-70.0) % Lymph % (Auto) (9.0-44.0) % Lee % (Auto) (0.0-8.0) % Eos % (Auto) (0.0-4.0) % Baso % (Auto) (0.0-2.0) % Neut # (Auto) (1.8-7.7) th/mm3 Lymph # (Auto) (1.0-4.8) th/mm3 Lee # (Auto) (0.0-0.9) th/mm3 Eos # (Auto) (0.0-0.4) th/mm3 Baso # (Auto) (0.0-0.2) th/mm3 WBC Differential Seg Neuts % (Manual) (16-70) % Band Neuts % (Manual) (0-6) % Lymphocytes % (Manual) (9-44) % Monocytes % (Manual) (0-8) % Basophils % (Manual) (0-2) % Metamyelocytes % (Man) (0-1) % Abs Neuts (Manual) (1.8-7.7) th/mm3 Differential Comment Platelet Estimate (Normal) Platelet Morphology (Normal) PT (9.8-11.6) sec INR Ratio APTT (24.3-30.1) sec Puncture Site Patient Temperature O2 Saturation (90-100) % ABG pH (7.380-7.420) ABG pCO2 (38-42) mmHg ABG pO2 (61-120) mmHg ABG HCO3 (22-26) mmol/L ABG O2 Content (12.0-20.0) Vol % ABG Base Excess (-2-2) mmol/L ABG Methemoglobin (0-2) % Sea Test Hemoglobin (12.0-16.0) G/DL Carboxyhemoglobin (0-4) % O2 Delivery Device Vent Setting Inspired O2 % Critical Value Sodium (136-145) meq/L Potassium (3.5-5.1) meq/L Chloride (98-107) meq/L Carbon Dioxide (21.0-32.0) meq/L Anion Gap (5-15) meq/L BUN (7-18) mg/dL Creatinine (0.60-1.30) mg/dL Estimated GFR (>89) mL/min POC Glucose 200 H 202 H (68-110) mg/dl Random Glucose (74-106) mg/dL Lactic Acid (0.4-2.0) mmol/L Calcium (8.5-10.1) mg/dL Phosphorus (2.5-4.9) mg/dL Magnesium (1.5-2.5) mg/dL Total Bilirubin (0.2-1.0) mg/dL AST (15-37) U/L ALT (12-78) U/L Alkaline Phosphatase (45-117) U/L Troponin I (0.02-0.05) ng/mL B-Natriuretic Peptide (0-100) pg/mL Total Protein (6.4-8.2) g/dL Albumin (3.4-5.0) g/dL TSH (0.358-3.740) uIU/mL Thyroxine (T4) (4.5-12.1) mcg/dL Urine Color (Yellw/Straw) Urine Clarity (Clear) Urine pH (5.0-8.5) Ur Specific Wells (1.002-1.035) Urine Protein (Neg-Trace) mg/dL Urine Glucose (UA) (Negative) mg/dL Urine Ketones (Negative) mg/dL Urine Occult Blood (Negative) Urine Nitrate (Negative) Urine Bilirubin (Negative) Urine Urobilinogen (Less than 2) mg/dL Ur Leukocyte Esterase (Negative) Urine RBC (0-3) /hpf Urine WBC (0-5) /hpf Ur Squamous Epith Cells (0-5) /hpf Urine Bacteria (None) /hpf Urine Mucus (Occasional) /lpf Urine Yeast (None) /hpf Micro UA Comment Ur Microscopic Review Urine Culture Comments Nasal Screen MRSA (PCR) (Negative) Stool C.difficile Ag (Negative) Stool C.difficile Toxin (Negative) Stl C.difficile DNA Amp (Negative) St C. diff Tox Epid 027 (Negative) Phenytoin 10.9 (10.0-20.0) mcg/mL Free Phenytoin (1.0-2.0) mg/L Valproic Acid 67 (50-100) mcg/mL Phenobarbital (15.0-40.0) mcg/mL Blood Type Antibody Screen MTS Gel Crossmatch 09/14/18 09/14/18 09/14/18 Range/Units 00:14 05:30 11:13 WBC (4.0-11.0) th/mm3 RBC (4.50-5.90) mil/mm3 Hgb (13.0-17.0) gm/dL Hct (39.0-51.0) % MCV (80.0-100.0) fL MCH (27.0-34.0) pg MCHC (32.0-36.0) % RDW (11.6-17.2) % Plt Count (150-450) th/mm3 MPV (7.0-11.0) fL Prelim Diff (Auto) Neut % (Auto) (16.0-70.0) % Lymph % (Auto) (9.0-44.0) % Lee % (Auto) (0.0-8.0) % Eos % (Auto) (0.0-4.0) % Baso % (Auto) (0.0-2.0) % Neut # (Auto) (1.8-7.7) th/mm3 Lymph # (Auto) (1.0-4.8) th/mm3 Lee # (Auto) (0.0-0.9) th/mm3 Eos # (Auto) (0.0-0.4) th/mm3 Baso # (Auto) (0.0-0.2) th/mm3 WBC Differential Seg Neuts % (Manual) (16-70) % Band Neuts % (Manual) (0-6) % Lymphocytes % (Manual) (9-44) % Monocytes % (Manual) (0-8) % Basophils % (Manual) (0-2) % Metamyelocytes % (Man) (0-1) % Abs Neuts (Manual) (1.8-7.7) th/mm3 Differential Comment Platelet Estimate (Normal) Platelet Morphology (Normal) PT (9.8-11.6) sec INR Ratio APTT (24.3-30.1) sec Puncture Site Patient Temperature O2 Saturation (90-100) % ABG pH (7.380-7.420) ABG pCO2 (38-42) mmHg ABG pO2 (61-120) mmHg ABG HCO3 (22-26) mmol/L ABG O2 Content (12.0-20.0) Vol % ABG Base Excess (-2-2) mmol/L ABG Methemoglobin (0-2) % Sea Test Hemoglobin (12.0-16.0) G/DL Carboxyhemoglobin (0-4) % O2 Delivery Device Vent Setting Inspired O2 % Critical Value Sodium 150 H (136-145) meq/L Potassium 4.4 (3.5-5.1) meq/L Chloride 117 H (98-107) meq/L Carbon Dioxide 24.4 (21.0-32.0) meq/L Anion Gap 9 (5-15) meq/L BUN 80 H (7-18) mg/dL Creatinine 1.46 H (0.60-1.30) mg/dL Estimated GFR 47 L (>89) mL/min POC Glucose 241 H 226 H (68-110) mg/dl Random Glucose 196 H (74-106) mg/dL Lactic Acid (0.4-2.0) mmol/L Calcium 8.5 (8.5-10.1) mg/dL Phosphorus (2.5-4.9) mg/dL Magnesium (1.5-2.5) mg/dL Total Bilirubin (0.2-1.0) mg/dL AST (15-37) U/L ALT (12-78) U/L Alkaline Phosphatase (45-117) U/L Troponin I (0.02-0.05) ng/mL B-Natriuretic Peptide (0-100) pg/mL Total Protein (6.4-8.2) g/dL Albumin (3.4-5.0) g/dL TSH (0.358-3.740) uIU/mL Thyroxine (T4) (4.5-12.1) mcg/dL Urine Color (Yellw/Straw) Urine Clarity (Clear) Urine pH (5.0-8.5) Ur Specific Wells (1.002-1.035) Urine Protein (Neg-Trace) mg/dL Urine Glucose (UA) (Negative) mg/dL Urine Ketones (Negative) mg/dL Urine Occult Blood (Negative) Urine Nitrate (Negative) Urine Bilirubin (Negative) Urine Urobilinogen (Less than 2) mg/dL Ur Leukocyte Esterase (Negative) Urine RBC (0-3) /hpf Urine WBC (0-5) /hpf Ur Squamous Epith Cells (0-5) /hpf Urine Bacteria (None) /hpf Urine Mucus (Occasional) /lpf Urine Yeast (None) /hpf Micro UA Comment Ur Microscopic Review Urine Culture Comments Nasal Screen MRSA (PCR) (Negative) Stool C.difficile Ag (Negative) Stool C.difficile Toxin (Negative) Stl C.difficile DNA Amp (Negative) St C. diff Tox Epid 027 (Negative) Phenytoin 11.6 (10.0-20.0) mcg/mL Free Phenytoin (1.0-2.0) mg/L Valproic Acid (50-100) mcg/mL Phenobarbital 22.6 (15.0-40.0) mcg/mL Blood Type Antibody Screen MTS Gel Crossmatch 09/14/18 09/15/18 09/15/18 Range/Units 17:53 00:48 04:00 WBC (4.0-11.0) th/mm3 RBC (4.50-5.90) mil/mm3 Hgb (13.0-17.0) gm/dL Hct (39.0-51.0) % MCV (80.0-100.0) fL MCH (27.0-34.0) pg MCHC (32.0-36.0) % RDW (11.6-17.2) % Plt Count (150-450) th/mm3 MPV (7.0-11.0) fL Prelim Diff (Auto) Neut % (Auto) (16.0-70.0) % Lymph % (Auto) (9.0-44.0) % Lee % (Auto) (0.0-8.0) % Eos % (Auto) (0.0-4.0) % Baso % (Auto) (0.0-2.0) % Neut # (Auto) (1.8-7.7) th/mm3 Lymph # (Auto) (1.0-4.8) th/mm3 Lee # (Auto) (0.0-0.9) th/mm3 Eos # (Auto) (0.0-0.4) th/mm3 Baso # (Auto) (0.0-0.2) th/mm3 WBC Differential Seg Neuts % (Manual) (16-70) % Band Neuts % (Manual) (0-6) % Lymphocytes % (Manual) (9-44) % Monocytes % (Manual) (0-8) % Basophils % (Manual) (0-2) % Metamyelocytes % (Man) (0-1) % Abs Neuts (Manual) (1.8-7.7) th/mm3 Differential Comment Platelet Estimate (Normal) Platelet Morphology (Normal) PT (9.8-11.6) sec INR Ratio APTT (24.3-30.1) sec Puncture Site Patient Temperature O2 Saturation (90-100) % ABG pH (7.380-7.420) ABG pCO2 (38-42) mmHg ABG pO2 (61-120) mmHg ABG HCO3 (22-26) mmol/L ABG O2 Content (12.0-20.0) Vol % ABG Base Excess (-2-2) mmol/L ABG Methemoglobin (0-2) % Sea Test Hemoglobin (12.0-16.0) G/DL Carboxyhemoglobin (0-4) % O2 Delivery Device Vent Setting Inspired O2 % Critical Value Sodium 152 H (136-145) meq/L Potassium 4.6 (3.5-5.1) meq/L Chloride 118 H (98-107) meq/L Carbon Dioxide 24.2 (21.0-32.0) meq/L Anion Gap 10 (5-15) meq/L BUN 96 H (7-18) mg/dL Creatinine 1.57 H (0.60-1.30) mg/dL Estimated GFR 43 L (>89) mL/min POC Glucose 248 H 280 H (68-110) mg/dl Random Glucose 218 H (74-106) mg/dL Lactic Acid (0.4-2.0) mmol/L Calcium 8.7 (8.5-10.1) mg/dL Phosphorus (2.5-4.9) mg/dL Magnesium (1.5-2.5) mg/dL Total Bilirubin (0.2-1.0) mg/dL AST (15-37) U/L ALT (12-78) U/L Alkaline Phosphatase (45-117) U/L Troponin I (0.02-0.05) ng/mL B-Natriuretic Peptide (0-100) pg/mL Total Protein (6.4-8.2) g/dL Albumin (3.4-5.0) g/dL TSH (0.358-3.740) uIU/mL Thyroxine (T4) (4.5-12.1) mcg/dL Urine Color (Yellw/Straw) Urine Clarity (Clear) Urine pH (5.0-8.5) Ur Specific Wells (1.002-1.035) Urine Protein (Neg-Trace) mg/dL Urine Glucose (UA) (Negative) mg/dL Urine Ketones (Negative) mg/dL Urine Occult Blood (Negative) Urine Nitrate (Negative) Urine Bilirubin (Negative) Urine Urobilinogen (Less than 2) mg/dL Ur Leukocyte Esterase (Negative) Urine RBC (0-3) /hpf Urine WBC (0-5) /hpf Ur Squamous Epith Cells (0-5) /hpf Urine Bacteria (None) /hpf Urine Mucus (Occasional) /lpf Urine Yeast (None) /hpf Micro UA Comment Ur Microscopic Review Urine Culture Comments Nasal Screen MRSA (PCR) (Negative) Stool C.difficile Ag (Negative) Stool C.difficile Toxin (Negative) Stl C.difficile DNA Amp (Negative) St C. diff Tox Epid 027 (Negative) Phenytoin 11.3 (10.0-20.0) mcg/mL Free Phenytoin (1.0-2.0) mg/L Valproic Acid (50-100) mcg/mL Phenobarbital 24.7 (15.0-40.0) mcg/mL Blood Type Antibody Screen MTS Gel Crossmatch 09/15/18 09/15/18 09/15/18 Range/Units 12:27 17:13 23:44 WBC (4.0-11.0) th/mm3 RBC (4.50-5.90) mil/mm3 Hgb (13.0-17.0) gm/dL Hct (39.0-51.0) % MCV (80.0-100.0) fL MCH (27.0-34.0) pg MCHC (32.0-36.0) % RDW (11.6-17.2) % Plt Count (150-450) th/mm3 MPV (7.0-11.0) fL Prelim Diff (Auto) Neut % (Auto) (16.0-70.0) % Lymph % (Auto) (9.0-44.0) % Lee % (Auto) (0.0-8.0) % Eos % (Auto) (0.0-4.0) % Baso % (Auto) (0.0-2.0) % Neut # (Auto) (1.8-7.7) th/mm3 Lymph # (Auto) (1.0-4.8) th/mm3 Lee # (Auto) (0.0-0.9) th/mm3 Eos # (Auto) (0.0-0.4) th/mm3 Baso # (Auto) (0.0-0.2) th/mm3 WBC Differential Seg Neuts % (Manual) (16-70) % Band Neuts % (Manual) (0-6) % Lymphocytes % (Manual) (9-44) % Monocytes % (Manual) (0-8) % Basophils % (Manual) (0-2) % Metamyelocytes % (Man) (0-1) % Abs Neuts (Manual) (1.8-7.7) th/mm3 Differential Comment Platelet Estimate (Normal) Platelet Morphology (Normal) PT (9.8-11.6) sec INR Ratio APTT (24.3-30.1) sec Puncture Site Patient Temperature O2 Saturation (90-100) % ABG pH (7.380-7.420) ABG pCO2 (38-42) mmHg ABG pO2 (61-120) mmHg ABG HCO3 (22-26) mmol/L ABG O2 Content (12.0-20.0) Vol % ABG Base Excess (-2-2) mmol/L ABG Methemoglobin (0-2) % Sea Test Hemoglobin (12.0-16.0) G/DL Carboxyhemoglobin (0-4) % O2 Delivery Device Vent Setting Inspired O2 % Critical Value Sodium (136-145) meq/L Potassium (3.5-5.1) meq/L Chloride (98-107) meq/L Carbon Dioxide (21.0-32.0) meq/L Anion Gap (5-15) meq/L BUN (7-18) mg/dL Creatinine (0.60-1.30) mg/dL Estimated GFR (>89) mL/min POC Glucose 226 H 245 H 205 H (68-110) mg/dl Random Glucose (74-106) mg/dL Lactic Acid (0.4-2.0) mmol/L Calcium (8.5-10.1) mg/dL Phosphorus (2.5-4.9) mg/dL Magnesium (1.5-2.5) mg/dL Total Bilirubin (0.2-1.0) mg/dL AST (15-37) U/L ALT (12-78) U/L Alkaline Phosphatase (45-117) U/L Troponin I (0.02-0.05) ng/mL B-Natriuretic Peptide (0-100) pg/mL Total Protein (6.4-8.2) g/dL Albumin (3.4-5.0) g/dL TSH (0.358-3.740) uIU/mL Thyroxine (T4) (4.5-12.1) mcg/dL Urine Color (Yellw/Straw) Urine Clarity (Clear) Urine pH (5.0-8.5) Ur Specific Wells (1.002-1.035) Urine Protein (Neg-Trace) mg/dL Urine Glucose (UA) (Negative) mg/dL Urine Ketones (Negative) mg/dL Urine Occult Blood (Negative) Urine Nitrate (Negative) Urine Bilirubin (Negative) Urine Urobilinogen (Less than 2) mg/dL Ur Leukocyte Esterase (Negative) Urine RBC (0-3) /hpf Urine WBC (0-5) /hpf Ur Squamous Epith Cells (0-5) /hpf Urine Bacteria (None) /hpf Urine Mucus (Occasional) /lpf Urine Yeast (None) /hpf Micro UA Comment Ur Microscopic Review Urine Culture Comments Nasal Screen MRSA (PCR) (Negative) Stool C.difficile Ag (Negative) Stool C.difficile Toxin (Negative) Stl C.difficile DNA Amp (Negative) St C. diff Tox Epid 027 (Negative) Phenytoin (10.0-20.0) mcg/mL Free Phenytoin (1.0-2.0) mg/L Valproic Acid (50-100) mcg/mL Phenobarbital (15.0-40.0) mcg/mL Blood Type Antibody Screen MTS Gel Crossmatch 09/16/18 09/16/18 09/16/18 Range/Units 04:47 04:47 05:34 WBC 11.9 H (4.0-11.0) th/mm3 RBC 2.67 L (4.50-5.90) mil/mm3 Hgb 9.2 L (13.0-17.0) gm/dL Hct 28.8 L (39.0-51.0) % MCV 107.9 H (80.0-100.0) fL MCH 34.6 H (27.0-34.0) pg MCHC 32.1 (32.0-36.0) % RDW 16.9 (11.6-17.2) % Plt Count 171 (150-450) th/mm3 MPV 9.4 (7.0-11.0) fL Prelim Diff (Auto) Neut % (Auto) (16.0-70.0) % Lymph % (Auto) (9.0-44.0) % Lee % (Auto) (0.0-8.0) % Eos % (Auto) (0.0-4.0) % Baso % (Auto) (0.0-2.0) % Neut # (Auto) (1.8-7.7) th/mm3 Lymph # (Auto) (1.0-4.8) th/mm3 Lee # (Auto) (0.0-0.9) th/mm3 Eos # (Auto) (0.0-0.4) th/mm3 Baso # (Auto) (0.0-0.2) th/mm3 WBC Differential Seg Neuts % (Manual) (16-70) % Band Neuts % (Manual) (0-6) % Lymphocytes % (Manual) (9-44) % Monocytes % (Manual) (0-8) % Basophils % (Manual) (0-2) % Metamyelocytes % (Man) (0-1) % Abs Neuts (Manual) (1.8-7.7) th/mm3 Differential Comment Platelet Estimate (Normal) Platelet Morphology (Normal) PT (9.8-11.6) sec INR Ratio APTT (24.3-30.1) sec Puncture Site Patient Temperature O2 Saturation (90-100) % ABG pH (7.380-7.420) ABG pCO2 (38-42) mmHg ABG pO2 (61-120) mmHg ABG HCO3 (22-26) mmol/L ABG O2 Content (12.0-20.0) Vol % ABG Base Excess (-2-2) mmol/L ABG Methemoglobin (0-2) % Sea Test Hemoglobin (12.0-16.0) G/DL Carboxyhemoglobin (0-4) % O2 Delivery Device Vent Setting Inspired O2 % Critical Value Sodium 155 H (136-145) meq/L Potassium 4.9 (3.5-5.1) meq/L Chloride 120 H (98-107) meq/L Carbon Dioxide 26.3 (21.0-32.0) meq/L Anion Gap 9 (5-15) meq/L BUN 106 H (7-18) mg/dL Creatinine 1.57 H (0.60-1.30) mg/dL Estimated GFR 43 L (>89) mL/min POC Glucose 224 H (68-110) mg/dl Random Glucose 194 H (74-106) mg/dL Lactic Acid (0.4-2.0) mmol/L Calcium 9.0 (8.5-10.1) mg/dL Phosphorus 3.1 (2.5-4.9) mg/dL Magnesium 2.5 (1.5-2.5) mg/dL Total Bilirubin (0.2-1.0) mg/dL AST (15-37) U/L ALT (12-78) U/L Alkaline Phosphatase (45-117) U/L Troponin I (0.02-0.05) ng/mL B-Natriuretic Peptide (0-100) pg/mL Total Protein (6.4-8.2) g/dL Albumin (3.4-5.0) g/dL TSH (0.358-3.740) uIU/mL Thyroxine (T4) (4.5-12.1) mcg/dL Urine Color (Yellw/Straw) Urine Clarity (Clear) Urine pH (5.0-8.5) Ur Specific Wells (1.002-1.035) Urine Protein (Neg-Trace) mg/dL Urine Glucose (UA) (Negative) mg/dL Urine Ketones (Negative) mg/dL Urine Occult Blood (Negative) Urine Nitrate (Negative) Urine Bilirubin (Negative) Urine Urobilinogen (Less than 2) mg/dL Ur Leukocyte Esterase (Negative) Urine RBC (0-3) /hpf Urine WBC (0-5) /hpf Ur Squamous Epith Cells (0-5) /hpf Urine Bacteria (None) /hpf Urine Mucus (Occasional) /lpf Urine Yeast (None) /hpf Micro UA Comment Ur Microscopic Review Urine Culture Comments Nasal Screen MRSA (PCR) (Negative) Stool C.difficile Ag (Negative) Stool C.difficile Toxin (Negative) Stl C.difficile DNA Amp (Negative) St C. diff Tox Epid 027 (Negative) Phenytoin 12.0 (10.0-20.0) mcg/mL Free Phenytoin (1.0-2.0) mg/L Valproic Acid (50-100) mcg/mL Phenobarbital 32.1 (15.0-40.0) mcg/mL Blood Type Antibody Screen MTS Gel Crossmatch 09/16/18 09/16/18 09/16/18 Range/Units 12:51 16:23 23:40 WBC (4.0-11.0) th/mm3 RBC (4.50-5.90) mil/mm3 Hgb (13.0-17.0) gm/dL Hct (39.0-51.0) % MCV (80.0-100.0) fL MCH (27.0-34.0) pg MCHC (32.0-36.0) % RDW (11.6-17.2) % Plt Count (150-450) th/mm3 MPV (7.0-11.0) fL Prelim Diff (Auto) Neut % (Auto) (16.0-70.0) % Lymph % (Auto) (9.0-44.0) % Lee % (Auto) (0.0-8.0) % Eos % (Auto) (0.0-4.0) % Baso % (Auto) (0.0-2.0) % Neut # (Auto) (1.8-7.7) th/mm3 Lymph # (Auto) (1.0-4.8) th/mm3 Lee # (Auto) (0.0-0.9) th/mm3 Eos # (Auto) (0.0-0.4) th/mm3 Baso # (Auto) (0.0-0.2) th/mm3 WBC Differential Seg Neuts % (Manual) (16-70) % Band Neuts % (Manual) (0-6) % Lymphocytes % (Manual) (9-44) % Monocytes % (Manual) (0-8) % Basophils % (Manual) (0-2) % Metamyelocytes % (Man) (0-1) % Abs Neuts (Manual) (1.8-7.7) th/mm3 Differential Comment Platelet Estimate (Normal) Platelet Morphology (Normal) PT (9.8-11.6) sec INR Ratio APTT (24.3-30.1) sec Puncture Site Patient Temperature O2 Saturation (90-100) % ABG pH (7.380-7.420) ABG pCO2 (38-42) mmHg ABG pO2 (61-120) mmHg ABG HCO3 (22-26) mmol/L ABG O2 Content (12.0-20.0) Vol % ABG Base Excess (-2-2) mmol/L ABG Methemoglobin (0-2) % Sea Test Hemoglobin (12.0-16.0) G/DL Carboxyhemoglobin (0-4) % O2 Delivery Device Vent Setting Inspired O2 % Critical Value Sodium (136-145) meq/L Potassium (3.5-5.1) meq/L Chloride (98-107) meq/L Carbon Dioxide (21.0-32.0) meq/L Anion Gap (5-15) meq/L BUN (7-18) mg/dL Creatinine (0.60-1.30) mg/dL Estimated GFR (>89) mL/min POC Glucose 252 H 199 H 242 H (68-110) mg/dl Random Glucose (74-106) mg/dL Lactic Acid (0.4-2.0) mmol/L Calcium (8.5-10.1) mg/dL Phosphorus (2.5-4.9) mg/dL Magnesium (1.5-2.5) mg/dL Total Bilirubin (0.2-1.0) mg/dL AST (15-37) U/L ALT (12-78) U/L Alkaline Phosphatase (45-117) U/L Troponin I (0.02-0.05) ng/mL B-Natriuretic Peptide (0-100) pg/mL Total Protein (6.4-8.2) g/dL Albumin (3.4-5.0) g/dL TSH (0.358-3.740) uIU/mL Thyroxine (T4) (4.5-12.1) mcg/dL Urine Color (Yellw/Straw) Urine Clarity (Clear) Urine pH (5.0-8.5) Ur Specific Wells (1.002-1.035) Urine Protein (Neg-Trace) mg/dL Urine Glucose (UA) (Negative) mg/dL Urine Ketones (Negative) mg/dL Urine Occult Blood (Negative) Urine Nitrate (Negative) Urine Bilirubin (Negative) Urine Urobilinogen (Less than 2) mg/dL Ur Leukocyte Esterase (Negative) Urine RBC (0-3) /hpf Urine WBC (0-5) /hpf Ur Squamous Epith Cells (0-5) /hpf Urine Bacteria (None) /hpf Urine Mucus (Occasional) /lpf Urine Yeast (None) /hpf Micro UA Comment Ur Microscopic Review Urine Culture Comments Nasal Screen MRSA (PCR) (Negative) Stool C.difficile Ag (Negative) Stool C.difficile Toxin (Negative) Stl C.difficile DNA Amp (Negative) St C. diff Tox Epid 027 (Negative) Phenytoin (10.0-20.0) mcg/mL Free Phenytoin (1.0-2.0) mg/L Valproic Acid (50-100) mcg/mL Phenobarbital (15.0-40.0) mcg/mL Blood Type Antibody Screen MTS Gel Crossmatch 09/17/18 09/17/18 09/17/18 Range/Units 04:45 04:45 13:19 WBC 13.7 H (4.0-11.0) th/mm3 RBC 2.71 L (4.50-5.90) mil/mm3 Hgb 9.2 L (13.0-17.0) gm/dL Hct 29.6 L (39.0-51.0) % MCV 109.1 H (80.0-100.0) fL MCH 34.1 H (27.0-34.0) pg MCHC 31.2 L (32.0-36.0) % RDW 17.3 H (11.6-17.2) % Plt Count 168 (150-450) th/mm3 MPV 9.4 (7.0-11.0) fL Prelim Diff (Auto) Neut % (Auto) (16.0-70.0) % Lymph % (Auto) (9.0-44.0) % Lee % (Auto) (0.0-8.0) % Eos % (Auto) (0.0-4.0) % Baso % (Auto) (0.0-2.0) % Neut # (Auto) (1.8-7.7) th/mm3 Lymph # (Auto) (1.0-4.8) th/mm3 Lee # (Auto) (0.0-0.9) th/mm3 Eos # (Auto) (0.0-0.4) th/mm3 Baso # (Auto) (0.0-0.2) th/mm3 WBC Differential Seg Neuts % (Manual) (16-70) % Band Neuts % (Manual) (0-6) % Lymphocytes % (Manual) (9-44) % Monocytes % (Manual) (0-8) % Basophils % (Manual) (0-2) % Metamyelocytes % (Man) (0-1) % Abs Neuts (Manual) (1.8-7.7) th/mm3 Differential Comment Platelet Estimate (Normal) Platelet Morphology (Normal) PT (9.8-11.6) sec INR Ratio APTT (24.3-30.1) sec Puncture Site Patient Temperature O2 Saturation (90-100) % ABG pH (7.380-7.420) ABG pCO2 (38-42) mmHg ABG pO2 (61-120) mmHg ABG HCO3 (22-26) mmol/L ABG O2 Content (12.0-20.0) Vol % ABG Base Excess (-2-2) mmol/L ABG Methemoglobin (0-2) % Sea Test Hemoglobin (12.0-16.0) G/DL Carboxyhemoglobin (0-4) % O2 Delivery Device Vent Setting Inspired O2 % Critical Value Sodium 155 H (136-145) meq/L Potassium 4.7 (3.5-5.1) meq/L Chloride 118 H (98-107) meq/L Carbon Dioxide 26.6 (21.0-32.0) meq/L Anion Gap 10 (5-15) meq/L BUN 105 H (7-18) mg/dL Creatinine 1.50 H (0.60-1.30) mg/dL Estimated GFR 45 L (>89) mL/min POC Glucose 222 H (68-110) mg/dl Random Glucose 232 H (74-106) mg/dL Lactic Acid (0.4-2.0) mmol/L Calcium 9.1 (8.5-10.1) mg/dL Phosphorus 3.1 (2.5-4.9) mg/dL Magnesium 2.7 H (1.5-2.5) mg/dL Total Bilirubin (0.2-1.0) mg/dL AST (15-37) U/L ALT (12-78) U/L Alkaline Phosphatase (45-117) U/L Troponin I (0.02-0.05) ng/mL B-Natriuretic Peptide (0-100) pg/mL Total Protein (6.4-8.2) g/dL Albumin (3.4-5.0) g/dL TSH (0.358-3.740) uIU/mL Thyroxine (T4) (4.5-12.1) mcg/dL Urine Color (Yellw/Straw) Urine Clarity (Clear) Urine pH (5.0-8.5) Ur Specific Wells (1.002-1.035) Urine Protein (Neg-Trace) mg/dL Urine Glucose (UA) (Negative) mg/dL Urine Ketones (Negative) mg/dL Urine Occult Blood (Negative) Urine Nitrate (Negative) Urine Bilirubin (Negative) Urine Urobilinogen (Less than 2) mg/dL Ur Leukocyte Esterase (Negative) Urine RBC (0-3) /hpf Urine WBC (0-5) /hpf Ur Squamous Epith Cells (0-5) /hpf Urine Bacteria (None) /hpf Urine Mucus (Occasional) /lpf Urine Yeast (None) /hpf Micro UA Comment Ur Microscopic Review Urine Culture Comments Nasal Screen MRSA (PCR) (Negative) Stool C.difficile Ag (Negative) Stool C.difficile Toxin (Negative) Stl C.difficile DNA Amp (Negative) St C. diff Tox Epid 027 (Negative) Phenytoin 11.1 (10.0-20.0) mcg/mL Free Phenytoin (1.0-2.0) mg/L Valproic Acid 129 H* (50-100) mcg/mL Phenobarbital 31.2 (15.0-40.0) mcg/mL Blood Type Antibody Screen MTS Gel Crossmatch 09/17/18 09/18/18 09/18/18 Range/Units 17:55 01:05 04:51 WBC (4.0-11.0) th/mm3 RBC (4.50-5.90) mil/mm3 Hgb (13.0-17.0) gm/dL Hct (39.0-51.0) % MCV (80.0-100.0) fL MCH (27.0-34.0) pg MCHC (32.0-36.0) % RDW (11.6-17.2) % Plt Count (150-450) th/mm3 MPV (7.0-11.0) fL Prelim Diff (Auto) Neut % (Auto) (16.0-70.0) % Lymph % (Auto) (9.0-44.0) % Lee % (Auto) (0.0-8.0) % Eos % (Auto) (0.0-4.0) % Baso % (Auto) (0.0-2.0) % Neut # (Auto) (1.8-7.7) th/mm3 Lymph # (Auto) (1.0-4.8) th/mm3 Lee # (Auto) (0.0-0.9) th/mm3 Eos # (Auto) (0.0-0.4) th/mm3 Baso # (Auto) (0.0-0.2) th/mm3 WBC Differential Seg Neuts % (Manual) (16-70) % Band Neuts % (Manual) (0-6) % Lymphocytes % (Manual) (9-44) % Monocytes % (Manual) (0-8) % Basophils % (Manual) (0-2) % Metamyelocytes % (Man) (0-1) % Abs Neuts (Manual) (1.8-7.7) th/mm3 Differential Comment Platelet Estimate (Normal) Platelet Morphology (Normal) PT (9.8-11.6) sec INR Ratio APTT (24.3-30.1) sec Puncture Site Patient Temperature O2 Saturation (90-100) % ABG pH (7.380-7.420) ABG pCO2 (38-42) mmHg ABG pO2 (61-120) mmHg ABG HCO3 (22-26) mmol/L ABG O2 Content (12.0-20.0) Vol % ABG Base Excess (-2-2) mmol/L ABG Methemoglobin (0-2) % Sea Test Hemoglobin (12.0-16.0) G/DL Carboxyhemoglobin (0-4) % O2 Delivery Device Vent Setting Inspired O2 % Critical Value Sodium 154 H (136-145) meq/L Potassium 5.1 (3.5-5.1) meq/L Chloride 119 H (98-107) meq/L Carbon Dioxide 24.1 (21.0-32.0) meq/L Anion Gap 11 (5-15) meq/L BUN 118 H (7-18) mg/dL Creatinine 1.37 H (0.60-1.30) mg/dL Estimated GFR 50 L (>89) mL/min POC Glucose 235 H 246 H (68-110) mg/dl Random Glucose 234 H (74-106) mg/dL Lactic Acid (0.4-2.0) mmol/L Calcium 8.9 (8.5-10.1) mg/dL Phosphorus 2.8 (2.5-4.9) mg/dL Magnesium 2.8 H (1.5-2.5) mg/dL Total Bilirubin (0.2-1.0) mg/dL AST (15-37) U/L ALT (12-78) U/L Alkaline Phosphatase (45-117) U/L Troponin I (0.02-0.05) ng/mL B-Natriuretic Peptide (0-100) pg/mL Total Protein (6.4-8.2) g/dL Albumin (3.4-5.0) g/dL TSH 2.260 (0.358-3.740) uIU/mL Thyroxine (T4) 4.1 L (4.5-12.1) mcg/dL Urine Color (Yellw/Straw) Urine Clarity (Clear) Urine pH (5.0-8.5) Ur Specific Wells (1.002-1.035) Urine Protein (Neg-Trace) mg/dL Urine Glucose (UA) (Negative) mg/dL Urine Ketones (Negative) mg/dL Urine Occult Blood (Negative) Urine Nitrate (Negative) Urine Bilirubin (Negative) Urine Urobilinogen (Less than 2) mg/dL Ur Leukocyte Esterase (Negative) Urine RBC (0-3) /hpf Urine WBC (0-5) /hpf Ur Squamous Epith Cells (0-5) /hpf Urine Bacteria (None) /hpf Urine Mucus (Occasional) /lpf Urine Yeast (None) /hpf Micro UA Comment Ur Microscopic Review Urine Culture Comments Nasal Screen MRSA (PCR) (Negative) Stool C.difficile Ag (Negative) Stool C.difficile Toxin (Negative) Stl C.difficile DNA Amp (Negative) St C. diff Tox Epid 027 (Negative) Phenytoin (10.0-20.0) mcg/mL Free Phenytoin (1.0-2.0) mg/L Valproic Acid (50-100) mcg/mL Phenobarbital (15.0-40.0) mcg/mL Blood Type Antibody Screen MTS Gel Crossmatch 09/18/18 09/18/18 09/18/18 Range/Units 04:51 11:48 18:04 WBC 15.9 H (4.0-11.0) th/mm3 RBC 2.96 L (4.50-5.90) mil/mm3 Hgb 10.3 L (13.0-17.0) gm/dL Hct 32.4 L (39.0-51.0) % MCV 109.6 H (80.0-100.0) fL MCH 34.9 H (27.0-34.0) pg MCHC 31.9 L (32.0-36.0) % RDW 17.0 (11.6-17.2) % Plt Count 175 (150-450) th/mm3 MPV 9.8 (7.0-11.0) fL Prelim Diff (Auto) Neut % (Auto) (16.0-70.0) % Lymph % (Auto) (9.0-44.0) % Lee % (Auto) (0.0-8.0) % Eos % (Auto) (0.0-4.0) % Baso % (Auto) (0.0-2.0) % Neut # (Auto) (1.8-7.7) th/mm3 Lymph # (Auto) (1.0-4.8) th/mm3 Lee # (Auto) (0.0-0.9) th/mm3 Eos # (Auto) (0.0-0.4) th/mm3 Baso # (Auto) (0.0-0.2) th/mm3 WBC Differential Seg Neuts % (Manual) (16-70) % Band Neuts % (Manual) (0-6) % Lymphocytes % (Manual) (9-44) % Monocytes % (Manual) (0-8) % Basophils % (Manual) (0-2) % Metamyelocytes % (Man) (0-1) % Abs Neuts (Manual) (1.8-7.7) th/mm3 Differential Comment Platelet Estimate (Normal) Platelet Morphology (Normal) PT (9.8-11.6) sec INR Ratio APTT (24.3-30.1) sec Puncture Site Patient Temperature O2 Saturation (90-100) % ABG pH (7.380-7.420) ABG pCO2 (38-42) mmHg ABG pO2 (61-120) mmHg ABG HCO3 (22-26) mmol/L ABG O2 Content (12.0-20.0) Vol % ABG Base Excess (-2-2) mmol/L ABG Methemoglobin (0-2) % Sea Test Hemoglobin (12.0-16.0) G/DL Carboxyhemoglobin (0-4) % O2 Delivery Device Vent Setting Inspired O2 % Critical Value Sodium (136-145) meq/L Potassium (3.5-5.1) meq/L Chloride (98-107) meq/L Carbon Dioxide (21.0-32.0) meq/L Anion Gap (5-15) meq/L BUN (7-18) mg/dL Creatinine (0.60-1.30) mg/dL Estimated GFR (>89) mL/min POC Glucose 247 H 165 H (68-110) mg/dl Random Glucose (74-106) mg/dL Lactic Acid (0.4-2.0) mmol/L Calcium (8.5-10.1) mg/dL Phosphorus (2.5-4.9) mg/dL Magnesium (1.5-2.5) mg/dL Total Bilirubin (0.2-1.0) mg/dL AST (15-37) U/L ALT (12-78) U/L Alkaline Phosphatase (45-117) U/L Troponin I (0.02-0.05) ng/mL B-Natriuretic Peptide (0-100) pg/mL Total Protein (6.4-8.2) g/dL Albumin (3.4-5.0) g/dL TSH (0.358-3.740) uIU/mL Thyroxine (T4) (4.5-12.1) mcg/dL Urine Color (Yellw/Straw) Urine Clarity (Clear) Urine pH (5.0-8.5) Ur Specific Wells (1.002-1.035) Urine Protein (Neg-Trace) mg/dL Urine Glucose (UA) (Negative) mg/dL Urine Ketones (Negative) mg/dL Urine Occult Blood (Negative) Urine Nitrate (Negative) Urine Bilirubin (Negative) Urine Urobilinogen (Less than 2) mg/dL Ur Leukocyte Esterase (Negative) Urine RBC (0-3) /hpf Urine WBC (0-5) /hpf Ur Squamous Epith Cells (0-5) /hpf Urine Bacteria (None) /hpf Urine Mucus (Occasional) /lpf Urine Yeast (None) /hpf Micro UA Comment Ur Microscopic Review Urine Culture Comments Nasal Screen MRSA (PCR) (Negative) Stool C.difficile Ag (Negative) Stool C.difficile Toxin (Negative) Stl C.difficile DNA Amp (Negative) St C. diff Tox Epid 027 (Negative) Phenytoin (10.0-20.0) mcg/mL Free Phenytoin (1.0-2.0) mg/L Valproic Acid (50-100) mcg/mL Phenobarbital (15.0-40.0) mcg/mL Blood Type Antibody Screen MTS Gel Crossmatch 09/19/18 09/19/18 09/19/18 Range/Units 00:35 03:52 03:52 WBC 17.8 H (4.0-11.0) th/mm3 RBC 2.82 L (4.50-5.90) mil/mm3 Hgb 9.8 L (13.0-17.0) gm/dL Hct 31.0 L (39.0-51.0) % MCV 109.9 H (80.0-100.0) fL MCH 34.6 H (27.0-34.0) pg MCHC 31.5 L (32.0-36.0) % RDW 17.0 (11.6-17.2) % Plt Count 168 (150-450) th/mm3 MPV 9.5 (7.0-11.0) fL Prelim Diff (Auto) Neut % (Auto) (16.0-70.0) % Lymph % (Auto) (9.0-44.0) % Lee % (Auto) (0.0-8.0) % Eos % (Auto) (0.0-4.0) % Baso % (Auto) (0.0-2.0) % Neut # (Auto) (1.8-7.7) th/mm3 Lymph # (Auto) (1.0-4.8) th/mm3 Lee # (Auto) (0.0-0.9) th/mm3 Eos # (Auto) (0.0-0.4) th/mm3 Baso # (Auto) (0.0-0.2) th/mm3 WBC Differential Seg Neuts % (Manual) (16-70) % Band Neuts % (Manual) (0-6) % Lymphocytes % (Manual) (9-44) % Monocytes % (Manual) (0-8) % Basophils % (Manual) (0-2) % Metamyelocytes % (Man) (0-1) % Abs Neuts (Manual) (1.8-7.7) th/mm3 Differential Comment Platelet Estimate (Normal) Platelet Morphology (Normal) PT (9.8-11.6) sec INR Ratio APTT (24.3-30.1) sec Puncture Site Patient Temperature O2 Saturation (90-100) % ABG pH (7.380-7.420) ABG pCO2 (38-42) mmHg ABG pO2 (61-120) mmHg ABG HCO3 (22-26) mmol/L ABG O2 Content (12.0-20.0) Vol % ABG Base Excess (-2-2) mmol/L ABG Methemoglobin (0-2) % Sea Test Hemoglobin (12.0-16.0) G/DL Carboxyhemoglobin (0-4) % O2 Delivery Device Vent Setting Inspired O2 % Critical Value Sodium 153 H (136-145) meq/L Potassium 4.9 (3.5-5.1) meq/L Chloride 119 H (98-107) meq/L Carbon Dioxide 25.9 (21.0-32.0) meq/L Anion Gap 8 (5-15) meq/L BUN 116 H (7-18) mg/dL Creatinine 1.30 (0.60-1.30) mg/dL Estimated GFR 53 L (>89) mL/min POC Glucose 189 H (68-110) mg/dl Random Glucose 208 H (74-106) mg/dL Lactic Acid (0.4-2.0) mmol/L Calcium 8.4 L (8.5-10.1) mg/dL Phosphorus 2.7 (2.5-4.9) mg/dL Magnesium 2.7 H (1.5-2.5) mg/dL Total Bilirubin (0.2-1.0) mg/dL AST (15-37) U/L ALT (12-78) U/L Alkaline Phosphatase (45-117) U/L Troponin I (0.02-0.05) ng/mL B-Natriuretic Peptide (0-100) pg/mL Total Protein (6.4-8.2) g/dL Albumin (3.4-5.0) g/dL TSH (0.358-3.740) uIU/mL Thyroxine (T4) (4.5-12.1) mcg/dL Urine Color (Yellw/Straw) Urine Clarity (Clear) Urine pH (5.0-8.5) Ur Specific Wells (1.002-1.035) Urine Protein (Neg-Trace) mg/dL Urine Glucose (UA) (Negative) mg/dL Urine Ketones (Negative) mg/dL Urine Occult Blood (Negative) Urine Nitrate (Negative) Urine Bilirubin (Negative) Urine Urobilinogen (Less than 2) mg/dL Ur Leukocyte Esterase (Negative) Urine RBC (0-3) /hpf Urine WBC (0-5) /hpf Ur Squamous Epith Cells (0-5) /hpf Urine Bacteria (None) /hpf Urine Mucus (Occasional) /lpf Urine Yeast (None) /hpf Micro UA Comment Ur Microscopic Review Urine Culture Comments Nasal Screen MRSA (PCR) (Negative) Stool C.difficile Ag (Negative) Stool C.difficile Toxin (Negative) Stl C.difficile DNA Amp (Negative) St C. diff Tox Epid 027 (Negative) Phenytoin (10.0-20.0) mcg/mL Free Phenytoin (1.0-2.0) mg/L Valproic Acid (50-100) mcg/mL Phenobarbital (15.0-40.0) mcg/mL Blood Type Antibody Screen MTS Gel Crossmatch 09/19/18 09/19/18 09/19/18 Range/Units 03:52 03:52 13:00 WBC (4.0-11.0) th/mm3 RBC (4.50-5.90) mil/mm3 Hgb (13.0-17.0) gm/dL Hct (39.0-51.0) % MCV (80.0-100.0) fL MCH (27.0-34.0) pg MCHC (32.0-36.0) % RDW (11.6-17.2) % Plt Count (150-450) th/mm3 MPV (7.0-11.0) fL Prelim Diff (Auto) Neut % (Auto) (16.0-70.0) % Lymph % (Auto) (9.0-44.0) % Lee % (Auto) (0.0-8.0) % Eos % (Auto) (0.0-4.0) % Baso % (Auto) (0.0-2.0) % Neut # (Auto) (1.8-7.7) th/mm3 Lymph # (Auto) (1.0-4.8) th/mm3 Lee # (Auto) (0.0-0.9) th/mm3 Eos # (Auto) (0.0-0.4) th/mm3 Baso # (Auto) (0.0-0.2) th/mm3 WBC Differential Seg Neuts % (Manual) (16-70) % Band Neuts % (Manual) (0-6) % Lymphocytes % (Manual) (9-44) % Monocytes % (Manual) (0-8) % Basophils % (Manual) (0-2) % Metamyelocytes % (Man) (0-1) % Abs Neuts (Manual) (1.8-7.7) th/mm3 Differential Comment Platelet Estimate (Normal) Platelet Morphology (Normal) PT (9.8-11.6) sec INR Ratio APTT (24.3-30.1) sec Puncture Site Patient Temperature O2 Saturation (90-100) % ABG pH (7.380-7.420) ABG pCO2 (38-42) mmHg ABG pO2 (61-120) mmHg ABG HCO3 (22-26) mmol/L ABG O2 Content (12.0-20.0) Vol % ABG Base Excess (-2-2) mmol/L ABG Methemoglobin (0-2) % Sea Test Hemoglobin (12.0-16.0) G/DL Carboxyhemoglobin (0-4) % O2 Delivery Device Vent Setting Inspired O2 % Critical Value Sodium (136-145) meq/L Potassium (3.5-5.1) meq/L Chloride (98-107) meq/L Carbon Dioxide (21.0-32.0) meq/L Anion Gap (5-15) meq/L BUN (7-18) mg/dL Creatinine (0.60-1.30) mg/dL Estimated GFR (>89) mL/min POC Glucose 163 H (68-110) mg/dl Random Glucose (74-106) mg/dL Lactic Acid (0.4-2.0) mmol/L Calcium (8.5-10.1) mg/dL Phosphorus (2.5-4.9) mg/dL Magnesium (1.5-2.5) mg/dL Total Bilirubin (0.2-1.0) mg/dL AST (15-37) U/L ALT (12-78) U/L Alkaline Phosphatase (45-117) U/L Troponin I (0.02-0.05) ng/mL B-Natriuretic Peptide 301 H (0-100) pg/mL Total Protein (6.4-8.2) g/dL Albumin (3.4-5.0) g/dL TSH (0.358-3.740) uIU/mL Thyroxine (T4) (4.5-12.1) mcg/dL Urine Color (Yellw/Straw) Urine Clarity (Clear) Urine pH (5.0-8.5) Ur Specific Wells (1.002-1.035) Urine Protein (Neg-Trace) mg/dL Urine Glucose (UA) (Negative) mg/dL Urine Ketones (Negative) mg/dL Urine Occult Blood (Negative) Urine Nitrate (Negative) Urine Bilirubin (Negative) Urine Urobilinogen (Less than 2) mg/dL Ur Leukocyte Esterase (Negative) Urine RBC (0-3) /hpf Urine WBC (0-5) /hpf Ur Squamous Epith Cells (0-5) /hpf Urine Bacteria (None) /hpf Urine Mucus (Occasional) /lpf Urine Yeast (None) /hpf Micro UA Comment Ur Microscopic Review Urine Culture Comments Nasal Screen MRSA (PCR) (Negative) Stool C.difficile Ag (Negative) Stool C.difficile Toxin (Negative) Stl C.difficile DNA Amp (Negative) St C. diff Tox Epid 027 (Negative) Phenytoin 10.2 (10.0-20.0) mcg/mL Free Phenytoin (1.0-2.0) mg/L Valproic Acid 56 (50-100) mcg/mL Phenobarbital 29.5 (15.0-40.0) mcg/mL Blood Type Antibody Screen MTS Gel Crossmatch 09/19/18 09/20/18 09/20/18 Range/Units 17:36 02:31 03:40 WBC (4.0-11.0) th/mm3 RBC (4.50-5.90) mil/mm3 Hgb (13.0-17.0) gm/dL Hct (39.0-51.0) % MCV (80.0-100.0) fL MCH (27.0-34.0) pg MCHC (32.0-36.0) % RDW (11.6-17.2) % Plt Count (150-450) th/mm3 MPV (7.0-11.0) fL Prelim Diff (Auto) Neut % (Auto) (16.0-70.0) % Lymph % (Auto) (9.0-44.0) % Lee % (Auto) (0.0-8.0) % Eos % (Auto) (0.0-4.0) % Baso % (Auto) (0.0-2.0) % Neut # (Auto) (1.8-7.7) th/mm3 Lymph # (Auto) (1.0-4.8) th/mm3 Lee # (Auto) (0.0-0.9) th/mm3 Eos # (Auto) (0.0-0.4) th/mm3 Baso # (Auto) (0.0-0.2) th/mm3 WBC Differential Seg Neuts % (Manual) (16-70) % Band Neuts % (Manual) (0-6) % Lymphocytes % (Manual) (9-44) % Monocytes % (Manual) (0-8) % Basophils % (Manual) (0-2) % Metamyelocytes % (Man) (0-1) % Abs Neuts (Manual) (1.8-7.7) th/mm3 Differential Comment Platelet Estimate (Normal) Platelet Morphology (Normal) PT (9.8-11.6) sec INR Ratio APTT (24.3-30.1) sec Puncture Site Patient Temperature O2 Saturation (90-100) % ABG pH (7.380-7.420) ABG pCO2 (38-42) mmHg ABG pO2 (61-120) mmHg ABG HCO3 (22-26) mmol/L ABG O2 Content (12.0-20.0) Vol % ABG Base Excess (-2-2) mmol/L ABG Methemoglobin (0-2) % Sea Test Hemoglobin (12.0-16.0) G/DL Carboxyhemoglobin (0-4) % O2 Delivery Device Vent Setting Inspired O2 % Critical Value Sodium 148 H (136-145) meq/L Potassium 5.2 H (3.5-5.1) meq/L Chloride 115 H (98-107) meq/L Carbon Dioxide 25.4 (21.0-32.0) meq/L Anion Gap 8 (5-15) meq/L BUN 120 H (7-18) mg/dL Creatinine 1.34 H (0.60-1.30) mg/dL Estimated GFR 52 L (>89) mL/min POC Glucose 241 H 246 H (68-110) mg/dl Random Glucose 232 H (74-106) mg/dL Lactic Acid (0.4-2.0) mmol/L Calcium 8.6 (8.5-10.1) mg/dL Phosphorus 3.5 (2.5-4.9) mg/dL Magnesium 2.9 H (1.5-2.5) mg/dL Total Bilirubin (0.2-1.0) mg/dL AST (15-37) U/L ALT (12-78) U/L Alkaline Phosphatase (45-117) U/L Troponin I (0.02-0.05) ng/mL B-Natriuretic Peptide (0-100) pg/mL Total Protein (6.4-8.2) g/dL Albumin (3.4-5.0) g/dL TSH (0.358-3.740) uIU/mL Thyroxine (T4) (4.5-12.1) mcg/dL Urine Color (Yellw/Straw) Urine Clarity (Clear) Urine pH (5.0-8.5) Ur Specific Wells (1.002-1.035) Urine Protein (Neg-Trace) mg/dL Urine Glucose (UA) (Negative) mg/dL Urine Ketones (Negative) mg/dL Urine Occult Blood (Negative) Urine Nitrate (Negative) Urine Bilirubin (Negative) Urine Urobilinogen (Less than 2) mg/dL Ur Leukocyte Esterase (Negative) Urine RBC (0-3) /hpf Urine WBC (0-5) /hpf Ur Squamous Epith Cells (0-5) /hpf Urine Bacteria (None) /hpf Urine Mucus (Occasional) /lpf Urine Yeast (None) /hpf Micro UA Comment Ur Microscopic Review Urine Culture Comments Nasal Screen MRSA (PCR) (Negative) Stool C.difficile Ag (Negative) Stool C.difficile Toxin (Negative) Stl C.difficile DNA Amp (Negative) St C. diff Tox Epid 027 (Negative) Phenytoin 16.5 (10.0-20.0) mcg/mL Free Phenytoin (1.0-2.0) mg/L Valproic Acid (50-100) mcg/mL Phenobarbital 29.5 (15.0-40.0) mcg/mL Blood Type Antibody Screen MTS Gel Crossmatch 09/20/18 09/20/18 09/21/18 Range/Units 03:40 17:36 01:16 EST WBC 19.8 H (4.0-11.0) th/mm3 RBC 3.01 L (4.50-5.90) mil/mm3 Hgb 10.4 L (13.0-17.0) gm/dL Hct 32.3 L (39.0-51.0) % MCV 107.2 H (80.0-100.0) fL MCH 34.5 H (27.0-34.0) pg MCHC 32.2 (32.0-36.0) % RDW 17.4 H (11.6-17.2) % Plt Count 186 (150-450) th/mm3 MPV 9.8 (7.0-11.0) fL Prelim Diff (Auto) Neut % (Auto) (16.0-70.0) % Lymph % (Auto) (9.0-44.0) % Lee % (Auto) (0.0-8.0) % Eos % (Auto) (0.0-4.0) % Baso % (Auto) (0.0-2.0) % Neut # (Auto) (1.8-7.7) th/mm3 Lymph # (Auto) (1.0-4.8) th/mm3 Lee # (Auto) (0.0-0.9) th/mm3 Eos # (Auto) (0.0-0.4) th/mm3 Baso # (Auto) (0.0-0.2) th/mm3 WBC Differential Seg Neuts % (Manual) (16-70) % Band Neuts % (Manual) (0-6) % Lymphocytes % (Manual) (9-44) % Monocytes % (Manual) (0-8) % Basophils % (Manual) (0-2) % Metamyelocytes % (Man) (0-1) % Abs Neuts (Manual) (1.8-7.7) th/mm3 Differential Comment Platelet Estimate (Normal) Platelet Morphology (Normal) PT (9.8-11.6) sec INR Ratio APTT (24.3-30.1) sec Puncture Site Patient Temperature O2 Saturation (90-100) % ABG pH (7.380-7.420) ABG pCO2 (38-42) mmHg ABG pO2 (61-120) mmHg ABG HCO3 (22-26) mmol/L ABG O2 Content (12.0-20.0) Vol % ABG Base Excess (-2-2) mmol/L ABG Methemoglobin (0-2) % Sea Test Hemoglobin (12.0-16.0) G/DL Carboxyhemoglobin (0-4) % O2 Delivery Device Vent Setting Inspired O2 % Critical Value Sodium (136-145) meq/L Potassium (3.5-5.1) meq/L Chloride (98-107) meq/L Carbon Dioxide (21.0-32.0) meq/L Anion Gap (5-15) meq/L BUN (7-18) mg/dL Creatinine (0.60-1.30) mg/dL Estimated GFR (>89) mL/min POC Glucose 230 H 270 H (68-110) mg/dl Random Glucose (74-106) mg/dL Lactic Acid (0.4-2.0) mmol/L Calcium (8.5-10.1) mg/dL Phosphorus (2.5-4.9) mg/dL Magnesium (1.5-2.5) mg/dL Total Bilirubin (0.2-1.0) mg/dL AST (15-37) U/L ALT (12-78) U/L Alkaline Phosphatase (45-117) U/L Troponin I (0.02-0.05) ng/mL B-Natriuretic Peptide (0-100) pg/mL Total Protein (6.4-8.2) g/dL Albumin (3.4-5.0) g/dL TSH (0.358-3.740) uIU/mL Thyroxine (T4) (4.5-12.1) mcg/dL Urine Color (Yellw/Straw) Urine Clarity (Clear) Urine pH (5.0-8.5) Ur Specific Wells (1.002-1.035) Urine Protein (Neg-Trace) mg/dL Urine Glucose (UA) (Negative) mg/dL Urine Ketones (Negative) mg/dL Urine Occult Blood (Negative) Urine Nitrate (Negative) Urine Bilirubin (Negative) Urine Urobilinogen (Less than 2) mg/dL Ur Leukocyte Esterase (Negative) Urine RBC (0-3) /hpf Urine WBC (0-5) /hpf Ur Squamous Epith Cells (0-5) /hpf Urine Bacteria (None) /hpf Urine Mucus (Occasional) /lpf Urine Yeast (None) /hpf Micro UA Comment Ur Microscopic Review Urine Culture Comments Nasal Screen MRSA (PCR) (Negative) Stool C.difficile Ag (Negative) Stool C.difficile Toxin (Negative) Stl C.difficile DNA Amp (Negative) St C. diff Tox Epid 027 (Negative) Phenytoin (10.0-20.0) mcg/mL Free Phenytoin (1.0-2.0) mg/L Valproic Acid (50-100) mcg/mL Phenobarbital (15.0-40.0) mcg/mL Blood Type Antibody Screen MTS Gel Crossmatch 09/21/18 09/21/18 09/21/18 Range/Units 03:21 03:21 11:34 WBC 24.7 H (4.0-11.0) th/mm3 RBC 2.59 L (4.50-5.90) mil/mm3 Hgb 9.0 L (13.0-17.0) gm/dL Hct 28.2 L (39.0-51.0) % MCV 108.6 H (80.0-100.0) fL MCH 34.8 H (27.0-34.0) pg MCHC 32.1 (32.0-36.0) % RDW 17.5 H (11.6-17.2) % Plt Count 193 (150-450) th/mm3 MPV 10.1 (7.0-11.0) fL Prelim Diff (Auto) Neut % (Auto) (16.0-70.0) % Lymph % (Auto) (9.0-44.0) % Lee % (Auto) (0.0-8.0) % Eos % (Auto) (0.0-4.0) % Baso % (Auto) (0.0-2.0) % Neut # (Auto) (1.8-7.7) th/mm3 Lymph # (Auto) (1.0-4.8) th/mm3 Lee # (Auto) (0.0-0.9) th/mm3 Eos # (Auto) (0.0-0.4) th/mm3 Baso # (Auto) (0.0-0.2) th/mm3 WBC Differential Seg Neuts % (Manual) (16-70) % Band Neuts % (Manual) (0-6) % Lymphocytes % (Manual) (9-44) % Monocytes % (Manual) (0-8) % Basophils % (Manual) (0-2) % Metamyelocytes % (Man) (0-1) % Abs Neuts (Manual) (1.8-7.7) th/mm3 Differential Comment Platelet Estimate (Normal) Platelet Morphology (Normal) PT (9.8-11.6) sec INR Ratio APTT (24.3-30.1) sec Puncture Site Patient Temperature O2 Saturation (90-100) % ABG pH (7.380-7.420) ABG pCO2 (38-42) mmHg ABG pO2 (61-120) mmHg ABG HCO3 (22-26) mmol/L ABG O2 Content (12.0-20.0) Vol % ABG Base Excess (-2-2) mmol/L ABG Methemoglobin (0-2) % Sea Test Hemoglobin (12.0-16.0) G/DL Carboxyhemoglobin (0-4) % O2 Delivery Device Vent Setting Inspired O2 % Critical Value Sodium 144 (136-145) meq/L Potassium 5.8 H (3.5-5.1) meq/L Chloride 111 H (98-107) meq/L Carbon Dioxide 24.2 (21.0-32.0) meq/L Anion Gap 9 (5-15) meq/L BUN 141 H (7-18) mg/dL Creatinine 1.31 H (0.60-1.30) mg/dL Estimated GFR 53 L (>89) mL/min POC Glucose 359 H (68-110) mg/dl Random Glucose 267 H (74-106) mg/dL Lactic Acid (0.4-2.0) mmol/L Calcium 7.9 L (8.5-10.1) mg/dL Phosphorus 4.0 (2.5-4.9) mg/dL Magnesium 2.7 H (1.5-2.5) mg/dL Total Bilirubin (0.2-1.0) mg/dL AST (15-37) U/L ALT (12-78) U/L Alkaline Phosphatase (45-117) U/L Troponin I (0.02-0.05) ng/mL B-Natriuretic Peptide (0-100) pg/mL Total Protein (6.4-8.2) g/dL Albumin (3.4-5.0) g/dL TSH (0.358-3.740) uIU/mL Thyroxine (T4) (4.5-12.1) mcg/dL Urine Color (Yellw/Straw) Urine Clarity (Clear) Urine pH (5.0-8.5) Ur Specific Wells (1.002-1.035) Urine Protein (Neg-Trace) mg/dL Urine Glucose (UA) (Negative) mg/dL Urine Ketones (Negative) mg/dL Urine Occult Blood (Negative) Urine Nitrate (Negative) Urine Bilirubin (Negative) Urine Urobilinogen (Less than 2) mg/dL Ur Leukocyte Esterase (Negative) Urine RBC (0-3) /hpf Urine WBC (0-5) /hpf Ur Squamous Epith Cells (0-5) /hpf Urine Bacteria (None) /hpf Urine Mucus (Occasional) /lpf Urine Yeast (None) /hpf Micro UA Comment Ur Microscopic Review Urine Culture Comments Nasal Screen MRSA (PCR) (Negative) Stool C.difficile Ag (Negative) Stool C.difficile Toxin (Negative) Stl C.difficile DNA Amp (Negative) St C. diff Tox Epid 027 (Negative) Phenytoin 14.5 (10.0-20.0) mcg/mL Free Phenytoin (1.0-2.0) mg/L Valproic Acid (50-100) mcg/mL Phenobarbital 30.2 (15.0-40.0) mcg/mL Blood Type Antibody Screen MTS Gel Crossmatch 09/21/18 Range/Units 12:10 WBC (4.0-11.0) th/mm3 RBC (4.50-5.90) mil/mm3 Hgb (13.0-17.0) gm/dL Hct (39.0-51.0) % MCV (80.0-100.0) fL MCH (27.0-34.0) pg MCHC (32.0-36.0) % RDW (11.6-17.2) % Plt Count (150-450) th/mm3 MPV (7.0-11.0) fL Prelim Diff (Auto) Neut % (Auto) (16.0-70.0) % Lymph % (Auto) (9.0-44.0) % Lee % (Auto) (0.0-8.0) % Eos % (Auto) (0.0-4.0) % Baso % (Auto) (0.0-2.0) % Neut # (Auto) (1.8-7.7) th/mm3 Lymph # (Auto) (1.0-4.8) th/mm3 Lee # (Auto) (0.0-0.9) th/mm3 Eos # (Auto) (0.0-0.4) th/mm3 Baso # (Auto) (0.0-0.2) th/mm3 WBC Differential Seg Neuts % (Manual) (16-70) % Band Neuts % (Manual) (0-6) % Lymphocytes % (Manual) (9-44) % Monocytes % (Manual) (0-8) % Basophils % (Manual) (0-2) % Metamyelocytes % (Man) (0-1) % Abs Neuts (Manual) (1.8-7.7) th/mm3 Differential Comment Platelet Estimate (Normal) Platelet Morphology (Normal) PT (9.8-11.6) sec INR Ratio APTT (24.3-30.1) sec Puncture Site Patient Temperature O2 Saturation (90-100) % ABG pH (7.380-7.420) ABG pCO2 (38-42) mmHg ABG pO2 (61-120) mmHg ABG HCO3 (22-26) mmol/L ABG O2 Content (12.0-20.0) Vol % ABG Base Excess (-2-2) mmol/L ABG Methemoglobin (0-2) % Sea Test Hemoglobin (12.0-16.0) G/DL Carboxyhemoglobin (0-4) % O2 Delivery Device Vent Setting Inspired O2 % Critical Value Sodium (136-145) meq/L Potassium (3.5-5.1) meq/L Chloride (98-107) meq/L Carbon Dioxide (21.0-32.0) meq/L Anion Gap (5-15) meq/L BUN (7-18) mg/dL Creatinine (0.60-1.30) mg/dL Estimated GFR (>89) mL/min POC Glucose (68-110) mg/dl Random Glucose (74-106) mg/dL Lactic Acid (0.4-2.0) mmol/L Calcium (8.5-10.1) mg/dL Phosphorus (2.5-4.9) mg/dL Magnesium (1.5-2.5) mg/dL Total Bilirubin (0.2-1.0) mg/dL AST (15-37) U/L ALT (12-78) U/L Alkaline Phosphatase (45-117) U/L Troponin I (0.02-0.05) ng/mL B-Natriuretic Peptide (0-100) pg/mL Total Protein (6.4-8.2) g/dL Albumin (3.4-5.0) g/dL TSH (0.358-3.740) uIU/mL Thyroxine (T4) (4.5-12.1) mcg/dL Urine Color Yellow (Yellw/Straw) Urine Clarity Hazy H (Clear) Urine pH 5.0 (5.0-8.5) Ur Specific Wells 1.015 (1.002-1.035) Urine Protein Negative (Neg-Trace) mg/dL Urine Glucose (UA) Negative (Negative) mg/dL Urine Ketones Negative (Negative) mg/dL Urine Occult Blood Large H (Negative) Urine Nitrate Negative (Negative) Urine Bilirubin Negative (Negative) Urine Urobilinogen Less than 2 (Less than 2) mg/dL Ur Leukocyte Esterase Negative (Negative) Urine RBC Less than 1 (0-3) /hpf Urine WBC 3 (0-5) /hpf Ur Squamous Epith Cells <1 (0-5) /hpf Urine Bacteria Occasional H (None) /hpf Urine Mucus Few H (Occasional) /lpf Urine Yeast Moderate H (None) /hpf Micro UA Comment Cath-culture ind Ur Microscopic Review Not Reportable Urine Culture Comments Cath-cult indicated Nasal Screen MRSA (PCR) (Negative) Stool C.difficile Ag (Negative) Stool C.difficile Toxin (Negative) Stl C.difficile DNA Amp (Negative) St C. diff Tox Epid 027 (Negative) Phenytoin (10.0-20.0) mcg/mL Free Phenytoin (1.0-2.0) mg/L Valproic Acid (50-100) mcg/mL Phenobarbital (15.0-40.0) mcg/mL Blood Type Antibody Screen MTS Gel Crossmatch Imaging Data Radiologist's impression: Chest X-Ray 09/06/18 23:11 CONCLUSION: 1. Bibasilar densities. 2. 2. Cardiomegaly 3. 3. Endotracheal tube tip is 2.5 cm above the jose antonio. Head CT 09/07/18 22:54 CONCLUSION: 1. Decrease in size of left frontal hematoma. . Head MRI 09/08/18 07:10 CONCLUSION: 1. Evolving left frontal mid convexity intra-axial hematoma measuring 2 cm with mild surrounding vasogenic edema but no significant mass effect or midline shift. 2. Otherwise, no intercurrent hemorrhage, acute infarction or hydrocephalus. Chest X-Ray 09/11/18 00:00 CONCLUSION: 1. Persistent left basilar consolidation/effusion with stable atelectatic changes above the right hemidiaphragm. 2. Heart size is prominent but well compensated. 3. Stable position of life-support tubes. Head MRI 09/12/18 07:06 CONCLUSION: 1. 2 cm hemorrhagic mass in the left frontal lobe with surrounding edema and minimal localized mass effect. No evidence for recent infarction. No other enhancing lesions within the brain. Head CT 09/13/18 00:00 CONCLUSION: 1. Interval left frontal craniotomy with some hemorrhage in the operative bed and surrounding edema in the left frontal lobe. Currently no significant mass effect or shift. Drain in the subdural space. . Head MRI 09/16/18 00:00 CONCLUSION: 1. Postsurgical changes left frontal lobe with minimal basilar edema and minimal residual hemorrhage. 2. No midline shift or mass effect. 3. Cerebral atrophy. 4. No acute infarction. 5. Old left cerebellar infarct. Chest X-Ray 09/19/18 00:00 CONCLUSION: 1. Stable tubes and lines, as above. 2. Cardiomegaly with stable positive fluid balance. 3. Persistent retrocardiac opacity likely reflecting left basilar consolidation /effusion. 4. Improved aeration of the right lower lung zone. Chest X-Ray 09/20/18 00:00 CONCLUSION: No significant interval change. Mild patchy left greater than right basilar lung opacity again seen. Discharge Plan Discharge Disposition Patient Disposition: 30 Still Patient Physicians Team ED Provider: Gaston Torres Primary Care Provider: Gary Rivera Attending Provider: Vaibhav Joya Other Providers: Abisai Bonilla ; Orlando Remy ; Hayder Lewis Status ED Status: Left Department Discharge Information Discharge Date/Time: 09/07/18 03:30
[2018-09-06 23:27] LABS: Baso # (Auto) 0.1 th/mm3 (0.0-0.2); Baso % (Auto) 0.8 % (0.0-2.0); Eos # (Auto) 0.1 th/mm3 (0.0-0.4); Eos % (Auto) 1.2 % (0.0-4.0); Hematocrit 34.4 % (39.0-51.0); Hemoglobin 11.2 gm/dL (13.0-17.0); Lymph # (Auto) 0.7 th/mm3 (1.0-4.8); Lymph % (Auto) 7.4 % (9.0-44.0); Mean Corpuscular HGB Conc 32.5 % (32.0-36.0); Mean Platelet Volume 8.2 fL (7.0-11.0); Mono # (Auto) 0.6 th/mm3 (0.0-0.9); Neut # (Auto) 7.3 th/mm3 (1.8-7.7); Neut % (Auto) 83.6 % (16.0-70.0); Platelet Count 182 th/mm3 (150-450); Red Blood Count 3.18 mil/mm3 (4.50-5.90); Red Cell Distribution Width 17.6 % (11.6-17.2); White Blood Count 8.8 th/mm3 (4.0-11.0)
--- NOTE | 2018-09-06 23:36 | P.HPCC ---
History of Present Illness Primary Care Physician: UNKNOWN History of Present Illness: 69-year-old male with a history of recent ICH, and seizure disorder presents from home after he was seizing. Called paramedics arrived to find him seizing in the setting they gave him 2 of Versed to break his seizure after they establish IV access patient then in route has another seizure and they gave him 2 more Versed. The patient was a postictal voiding episode and became in respiratory distress needed to be intubated by the paramedics. They intubated him and arrived to emergency department sedated intubated and possibly seizing with contraction of the right hand. He was started on a propofol drip to keep him sedated as well as seizure-free and he has been admitted to the ICU. 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 - Medical History Medical History: Medical History (Last Reviewed 08/21/18 @ 10:38 by [employer]) Atrial fibrillation Diabetes Gout - Surgical History Surgical History: Surgical History (Last Reviewed 08/21/18 @ 10:38 by [employer]) AICD (automatic cardioverter/defibrillator) present - Tobacco History Second Hand Smoke Exposure: No Smoking Status: Cognitive impairment - Alcohol History How Often Do You Have a Drink Containing Alcohol: Unable to Obtain - Substance Use History Substance History: Unable to Obtain - Travel History Recent Travel in the [facility] Within the Last 8 Weeks: No - Immunization History Tetanus Immunization: Unable to Assess Medications and Allergies Active Medications: Active Medications Propofol (Diprivan 1000 Mg/100 Ml Inj) 1,000 mg in 100 mls @ 2.449 mls/hr IV.CONT TITRATE PRN; Protocol PRN Reason: Per Protocol Sodium Chloride (Ns Flush) 2 ml IV.FLUSH PRN PRN PRN Reason: FLUSH AFTER USING IV ACCESS Current Medications Acetaminophen (Tylenol) 650 mg PO Q6H PRN PRN Reason: PAIN 1-10 AND/OR FEVER >101F Al Hydroxide/Mg Hydroxide (Milk Of Magnesia Liq) 30 ml PO Q12H PRN PRN Reason: Mild Constipation Albuterol (Duoneb Neb (Prn)) 1 ampul NEB Q2HR NEB PRN PRN Reason: WHEEZING Allopurinol (Zyloprim) 100 mg PO DAILY [facility] Bisacodyl (Dulcolax Supp) 10 mg RECTAL DAILY PRN PRN Reason: SEVERE CONSITIPATION Chlorhexidine Gluconate (Peridex 0.12% Oral Kit) 15 ml OROPHARYNG BID@0800, 2000 [facility] Chlorhexidine Gluconate (Chlorhexidine 2% Cloth) 3 pack TOPICAL DAILY@0400 [facility] Stop: 09/12/18 03:59 Chlorhexidine Gluconate (Chlorhexidine 2% Cloth) 3 pack TOPICAL DAILY@0400 PRN PRN Reason: Extra cloth needed Stop: 09/12/18 03:59 Enoxaparin Sodium (Lovenox Inj) 30 mg SQ Q24H [facility] Famotidine (Pepcid Pf Inj) 10 mg IV.PUSH Q12HR [facility] Propofol (Diprivan 1000 Mg/100 Ml Inj) 1,000 mg in 100 mls @ 2.449 mls/hr IV.CONT TITRATE PRN; Protocol PRN Reason: Per Protocol Last Admin: 09/07/18 00:16 Dose: 5 mcg/kg/min, 2.45 mls/hr Sodium Chloride (Ns Inj) 1,000 mls @ 84 mls/hr IV.CONT .[id number] [facility] Levetiracetam 500 mg/ Sodium (Chloride) 105 mls @ 400 mls/hr IV.SIG Q12H [facility] Last Admin: 09/07/18 00:35 Dose: 400 mls/hr Lactulose (Lactulose Liq) 30 ml PO DAILY PRN PRN Reason: SEVERE CONSITIPATION Lorazepam (Ativan Inj) 1 mg IV.PUSH Q1H PRN PRN Reason: Agitation/sedation or Seizure Last Admin: 09/07/18 00:19 Dose: 1 mg Magnesium Oxide (Mag-Ox) 400 mg PO BID [facility] Metolazone (Zaroxolyn) 5 mg PO DAILY [facility] Metoprolol Tartrate (Lopressor) 50 mg PO BID [facility] Miscellaneous Medication () 1 each OROPHARYNG 0000,0400,1200,1600 [facility] Morphine Sulfate (Morphine Inj) 2 mg IV.PUSH Q2H PRN PRN Reason: PAIN SCALE 6 TO 10 Non-Formulary Medication (Diltiazem Hcl [Diltiazem Hcl]) 1 cap PO DAILY [facility] Ondansetron HCl (Zofran Inj) 4 mg IV.PUSH Q6H PRN PRN Reason: NAUSEA OR VOMITING Pravastatin Sodium (Pravachol) 40 mg PO HS [facility] Senna/Docusate Sodium (Janeen-Colace) 1 tab PO BID [facility] Sennosides (Senokot) 17.2 mg PO Q12H PRN PRN Reason: Moderate Constipation Sodium Chloride (Ns Flush) 2 ml IV.FLUSH PRN PRN PRN Reason: FLUSH AFTER USING IV ACCESS Sodium Chloride (Ns Flush) 2 ml IV.FLUSH BID [facility] Sodium Chloride (Ns Flush) 2 ml IV.FLUSH PRN PRN PRN Reason: FLUSH AFTER USING IV ACCESS Allergies Allergy/AdvReac Type Severity Reaction Status Date / Time digitoxin Allergy Severe Hallucinati Verified 08/19/18 15:46 ons Home Medications Medication Instructions Recorded Confirmed Type diltiazem HCl 1 cap PO DAILY 08/19/18 08/19/18 History magnesium oxide 400 mg PO BID 08/19/18 08/19/18 History metolazone 5 mg PO DAILY 08/19/18 08/19/18 History metoprolol tartrate 50 mg PO BID 08/19/18 08/19/18 History potassium chloride 1 tab PO BID 08/19/18 08/19/18 History simvastatin 20 mg PO QPM 08/19/18 08/19/18 History Results - Labs CBC & Chem 7: 09/06/18 23:00 09/06/18 23:00 Labs: Short CBC 09/06/18 Range/Units 23:00 WBC 8.8 (4.0-11.0) th/mm3 Hgb 11.2 L (13.0-17.0) gm/dL Hct 34.4 L (39.0-51.0) % Plt Count 182 (150-450) th/mm3 - Imaging Impressions Chest X-Ray 09/06/18 23:11 CONCLUSION: 1. Bibasilar densities. 2. 2. Cardiomegaly 3. 3. Endotracheal tube tip is 2.5 cm above the jose antonio. Exam Vital signs: Vital Signs 09/06/18 22:39 Pulse Rate 110 H Respiratory Rate 20 Blood Pressure 136/72 Pulse Oximetry 100 Intake & Output 09/06/18 09/06/18 09/07/18 06:59 18:59 06:59 Weight 81.647 kg - Constitutional mild distress - Routine HEENT Exam Head: Present: atraumatic Eye: Present: PERRL ENT: Present: mucous membranes moist - Routine Neck Exam Absent: JVD, carotid bruit - Routine Chest/Breast/Axilla Exam Chest wall: Absent: tenderness - Routine Respiratory Exam Present: patient mechanically ventilated. Absent: rhonchi, stridor, wheezes, crackles - Routine Cardiovascular Exam Present: S1, S2, irregularly irregular - Routine Abdominal Exam Present: soft, normoactive bowel sounds - Routine Extremities Exam Absent: cyanosis, clubbing, edema - Routine Skin Exam Present: intact. Absent: cyanosis, erythema - Routine Neurological Exam Present: altered mental status, moving all extremities Septic Shock Reassessment Septic shock perfusion: reassessment completed Caprini VTE Risk Assessment Caprini VTE Risk Assessment: Moderate/High Risk (score >= 2) Caprini Risk Assessment Model: Point Value = 1 Point Value = 2 Point Value = 3 Point Value = 5 Age 41-60 Minor surgery BMI > 25 kg/m2 Swollen legs Varicose veins or History of unexplained or recurrent spontaneous Oral contraceptives or hormone replacement Sepsis (< 1 month) Serious lung disease, including pneumonia (< 1 month) Abnormal pulmonary function Acute myocardial infarction Congestive heart failure (< 1 month) History of inflammatory bowel disease Medical patient at bed rest Age 61-74 Arthroscopic surgery Major open surgery (> 45 min) Laparoscopic surgery (> 45 min) Malignancy Confined to bed (> 72 hours) Immobilizing plaster cast Central venous access Age >= 75 History of VTE Family history of VTE Factor V Leiden Prothrombin [id number] Lupus anticoagulant Anticardiolipin antibodies Elevated serum homocysteine Heparin-induced thrombocytopenia Other congenital or acquired thrombophilia Stroke (< 1 month) Elective arthroplasty Hip, pelvis, or leg fracture Acute spinal cord injury (< 1 month) Prophylaxis Regimen: Total Risk Factor Score Risk Level Prophylaxis Regimen 0-1 Low Early ambulation 2 Moderate Order ONE of the following: *Sequential Compression Device (SCD) *Heparin 5000 units SQ BID 3-4 Higher Order ONE of the following medications: *Heparin 5000 units SQ TID *Enoxaparin/Lovenox 40 mg SQ daily (WT < 150 kg, CrCl > 30 mL/min) *Enoxaparin/Lovenox 30 mg SQ daily (WT < 150 kg, CrCl > 10-29 mL/min) *Enoxaparin/Lovenox 30 mg SQ BID (WT < 150 kg, CrCl > 30 mL/min) AND/OR *Sequential Compression Device (SCD) 5 or more Highest Order ONE of the following medications: *Heparin 5000 units SQ TID (Preferred with Epidurals) *Enoxaparin/Lovenox 40 mg SQ daily (WT < 150 kg, CrCl > 30 mL/min) *Enoxaparin/Lovenox 30 mg SQ daily (WT < 150 kg, CrCl > 10-29 mL/min) *Enoxaparin/Lovenox 30 mg SQ BID (WT < 150 kg, CrCl > 30 mL/min) AND *Sequential Compression Device (SCD) Assessment and Plan - Assessment and Plan Plan: Respiratory failure -Intubated for an airway protection -Attempt to wean and extubate when seizure-free -Vent bundle -DuoNeb's as needed Seizure -IV Keppra -EEG -Propofol -Neurology consultation 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
[2018-09-06 23:56] LABS: Calcium 8.9 mg/dL (8.5-10.1); Carbon Dioxide 32.7 meq/L (21.0-32.0); Magnesium 1.6 mg/dL (1.5-2.5); Potassium 3.3 meq/L (3.5-5.1)
[2018-09-06] MEDS ORDERED: Bisacodyl 10 MG Supp RECTAL PRN (23:56)
[2018-09-06] MEDS ORDERED: Morphine Sulfate Inj 2 MG/ML Vial IV.PUSH PRN (23:56)
[2018-09-06] MEDS ORDERED: Acetaminophen 325 MG Tablet PO PRN (23:56)
--- NOTE | 2018-09-07 00:03 | XR ---
EXAM DATE: 09/06/2018 11:11 PM EDT AGE/SEX: 77 years / Male INDICATIONS: Shortness of breath. CLINICAL DATA: This is the patient's initial encounter. Patient reports that signs and symptoms have been present for 1 day and indicates a pain score of Nonresponsive. MEDICAL/SURGICAL HISTORY: Diabetes mellitus type II. Seizures. Atrial Fibrillation. Gout. Suba rachnoid hemorrhage. Mitral regurgitation. Hyperlipidemia. Sleep apnea. Diverticulosis. Pulmonary hyp ertension. CABG. Automatic cardioverter/defibrillator. Cardiac ablations. Colon resection with colo stomy and reversal. Skin cancer removal. COMPARISON: [facility] [place], CHEST 1V SINGLE AP, 08/19/2018. . FINDINGS: A single AP view of the chest demonstrates bibasilar densities. Cardiomegaly and previous CABG. Left- sided pacemaker with single intact lead. Endotracheal tube 2.5 cm above the jose antonio. Nasogastric tube with tip likely in stomach. Osseous structures are intact. CONCLUSION: 1. Bibasilar densities. 2. 2. Cardiomegaly 3. 3. Endotracheal tube tip is 2.5 cm above the jose antonio. Electronically signed by: Stefano Echeverria MD 09/07/2018 12:02 AM EDT
[2018-09-07] MEDS ORDERED: Potassium Chlor 20 mEq Premix 20 MEQ/100 ML PIGGYBACK IV.SIG PRN ×2 (01:11)
[2018-09-07] MEDS ORDERED: Potassium Phosphate 500 MG Soluble Tablet PO PRN ×2 (01:11)
[2018-09-07] MEDS ORDERED: Potassium Chloride 25 MEQ Effervescent Tablet PO PRN (01:11)
[2018-09-07] MEDS ORDERED: Magnesium Sulfate Inj 4 GM in Sodium Chlor 0.9% Inj 92 ML IV.SIG PRN (01:11)
[2018-09-07] MEDS ORDERED: Potassium Phosphate Inj 30 MMOL in Sodium Chlor 0.9% Inj 250 ML IV.SIG PRN (01:11)
[2018-09-07] MEDS ORDERED: Sodium Phosphate Inj 30 MMOL in Sodium Chlor 0.9% Inj 250 ML IV.SIG PRN (01:11)
[2018-09-07] MEDS ORDERED: Magnesium Oxide 400 MG Tablet PO PRN (01:11)
[2018-09-07] MEDS ORDERED: Magnesium Sulfate Inj 2 GM in Sodium Chlor 0.9% Inj 96 ML IV.SIG PRN (01:11)
[2018-09-07] MEDS ORDERED: Potassium Chlor 40 mEq Premix 40 MEQ/100 ML PIGGYBACK IV.SIG PRN ×2 (01:11)
--- NOTE | 2018-09-07 01:22 | CT ---
EXAM DATE: 09/07/2018 10:54 PM EDT AGE/SEX: 77 years / Male INDICATIONS: Seizure. Patient is now non responsive / intubated. CLINICAL DATA: This is the patient's initial encounter. Patient reports that signs and symptoms have been present for 1 day and indicates a pain score of Nonresponsive. MEDICAL/SURGICAL HISTORY: Cardiovascular disease. Diabetes. . AICD RADIATION DOSE: 56.35 CTDI (mGy) COMPARISON: [facility] [place], CT HEAD W/O CONTRAST, 08/20/2018. . TECHNIQUE: CT of the head without contrast. Using automated exposure control and adjustment of the mA and/or kV according to patient size, radiation dose was kept as low as reasonably achievable to ob tain optimal diagnostic quality images. DICOM format image data is available electronically for revi ew and comparison. FINDINGS: Cerebrum: Small left frontal hematoma is less prominent than previous study. The ventricles are norm al for age. No evidence of midline shift, mass lesion or acute infarction. No extraaxial fluid chrissy ections are seen. Posterior Fossa: The cerebellum and brainstem are intact. The 4th ventricle is midline. The cerebe llopontine angle is unremarkable. Extracranial: The visualized portion of the orbits is intact. Skull: The calvaria is intact. No evidence of skull fracture. CONCLUSION: 1. Decrease in size of left frontal hematoma. . Electronically signed by: Stefano Echeverria MD 09/07/2018 1:21 AM EDT
[2018-09-07] MEDS: Sod Chloride 0.9% Inj 1,000 ML IV.CONT SCH ×2 (01:27→10:49)
[2018-09-07] MEDS ORDERED: Chlorhexidine Gluconate 2% 1 Pack (2 Cloths) TOPICAL PRN (04:00)
[2018-09-07] MEDS ORDERED: Dextrose 50% in Water 50 ML Vial IV.PUSH PRN (04:37)
[2018-09-07] MEDS: Oral Hygiene Kit OROPHARYNG SCH ×3 (04:55→16:24)
[2018-09-07] MEDS ORDERED: Fosphenytoin Inj 1,000 MGPE in Sodium Chlor 0.9% Inj 50 ML IV.SIG ONE (05:10)
[2018-09-07] MEDS: Chlorhexidine Gluconate 2% 1 Pack (2 Cloths) TOPICAL SCH (05:42)
[2018-09-07] MEDS: Heparin - SQ 10,000 UNITS/ML Vial SQ SCH ×3 (05:54→21:30)
[2018-09-07] MEDS: Insulin NovoLOG Aspart Correctional Sugar Inj SQ SCH ×3 (05:54→17:41)
[2018-09-07 06:10] LABS: Baso % (Auto) 0.5 % (0.0-2.0); Eos % (Auto) 0.1 % (0.0-4.0); Hematocrit 30.7 % (39.0-51.0); Lymph # (Auto) 0.4 th/mm3 (1.0-4.8); Lymph % (Auto) 4.8 % (9.0-44.0); Mean Corpuscular HGB Conc 32.7 % (32.0-36.0); Mean Corpuscular Hemoglobin 35.1 pg (27.0-34.0); Mean Corpuscular Volume 107.4 fL (80.0-100.0); Mean Platelet Volume 7.9 fL (7.0-11.0); Mono # (Auto) 0.5 th/mm3 (0.0-0.9); Mono % (Auto) 5.7 % (0.0-8.0); Neut % (Auto) 88.9 % (16.0-70.0); Platelet Count 159 th/mm3 (150-450); Red Blood Count 2.86 mil/mm3 (4.50-5.90)
[2018-09-07 06:17] LABS: Activated Partial Thrombo Time 30.2 sec (24.3-30.1); INR 1.2 Ratio; Prothrombin Time 11.8 sec (9.8-11.6)
[2018-09-07 06:35] LABS: Alanine Aminotransferase 9 U/L (12-78); Albumin 3.2 g/dL (3.4-5.0); Anion Gap 10 meq/L (5-15); Aspartate Aminotransferase 16 U/L (15-37); Blood Urea Nitrogen 51 mg/dL (7-18); Calcium 8.3 mg/dL (8.5-10.1); Carbon Dioxide 33.3 meq/L (21.0-32.0); Chloride 96 meq/L (98-107); Glomerular Filtration Rate 38 mL/min (>89); Glucose,Random 205 mg/dL (74-106); Magnesium 1.8 mg/dL (1.5-2.5); Phosphorus 4.4 mg/dL (2.5-4.9); Potassium 3.4 meq/L (3.5-5.1); Sodium 139 meq/L (136-145)
[2018-09-07 06:38] LABS: Alkaline Phosphatase 108 U/L (45-117); Total Protein 7.6 g/dL (6.4-8.2); Troponin I 0.02 ng/mL (0.02-0.05)
--- NOTE | 2018-09-07 08:32 | P.PNCC ---
Subjective Subjective Remarks/Hospital Course: 69-year-old male with a history of recent ICH, and seizure disorder presents from home after he was seizing. Called paramedics arrived to find him seizing in the setting they gave him 2 of Versed to break his seizure after they establish IV access patient then in route has another seizure and they gave him 2 more Versed. The patient was a postictal voiding episode and became in respiratory distress needed to be intubated by the paramedics. They intubated him and arrived to emergency department sedated intubated and possibly seizing with contraction of the right hand. He was started on a propofol drip to keep him sedated as well as seizure-free and he has been admitted to the ICU. 09/07: No more seizure activity. Weaned to propofol 5 mics per kilogram per minute. AED restarted. CAT scan shows diminished size of left frontal lobe hematoma compared to prior study. Objective Vital Signs / I&O: Vital Signs 09/06/18 22:39 09/06/18 22:48 09/06/18 23:48 Temperature Pulse Rate 110 H 84 Respiratory Rate 28 H 20 Blood Pressure 136/72 110/66 Pulse Oximetry 97 100 100 09/07/18 00:20 09/07/18 00:44 09/07/18 00:50 Temperature 97.0 F L Pulse Rate 76 Respiratory Rate 20 Blood Pressure 102/52 L Pulse Oximetry 100 100 09/07/18 01:11 09/07/18 01:51 09/07/18 02:41 Temperature Pulse Rate 76 82 88 Respiratory Rate 20 20 Blood Pressure 95/48 L 100/58 L 98/60 L Pulse Oximetry 100 100 09/07/18 03:35 09/07/18 03:48 09/07/18 04:00 Temperature 98.3 F Pulse Rate 82 Respiratory Rate 22 12 Blood Pressure 117/60 Pulse Oximetry 100 100 09/07/18 06:00 09/07/18 07:35 09/07/18 08:00 Temperature 95 F L Pulse Rate 87 90 Respiratory Rate 12 12 Blood Pressure 125/64 Pulse Oximetry 100 Intake & Output 09/06/18 09/07/18 09/07/18 18:59 06:59 18:59 Intake Total / Output Total 350 / 350 Balance -145 / -145 Weight 94.5 kg Intake: IV Rocephin Inj 1,000 MG In NS Inj 100 / 100 100 ML @ 200 mls/hr IV.SIG ONCE ONE Rx#:[id number] Keppra Inj 500 MG In NS Inj 100 105 / 105 ML @ 400 mls/hr IV.SIG Q12H [facility] Rx#:[id number] Output: Urine Amount (Catheter) 350 / 350 Indwelling Urethral Catheter 350 / 350 Other: Date of Last Bowel Movement 09/07/18 09/07/18 # Bowel Movements 1 Result Diagrams: 09/07/18 05:49 09/07/18 05:49 Objective Remarks: - Constitutional Calm, on mechanical ventilation - Routine HEENT Exam Head: Present: atraumatic Eye: Present: PERRL ENT: Present: mucous membranes moist - Routine Neck Exam Orotracheal intubation. Absent: JVD, carotid bruit - Routine Chest/Breast/Axilla Exam Chest wall: Normal excursion. Absent: tenderness - Routine Respiratory Exam Present: patient mechanically ventilated. Breath sounds clear. Absent: rhonchi , stridor, wheezes, crackles - Routine Cardiovascular Exam Present: S1, S2, irregularly irregular, no JVD. - Routine Abdominal Exam Present: soft, normoactive bowel sounds, no guarding - Routine Extremities Exam Warm, well-perfused. Absent: cyanosis, clubbing, edema - Routine Skin Exam Present: intact. Absent: cyanosis, erythema - Routine Neurological Exam Present: altered mental status, moving all extremities grossly. Opens eyes to voice. Assessment and Plan - Assessment and Plan Plan: Respiratory failure -Intubated for an airway protection -Attempt to wean and extubate when seizure-free -Vent bundle -DuoNeb's as needed -Start spontaneous breathing trials. 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 Atrial fibrillation -Metoprolol -Hold anticoagulation due to recent ICH Diabetes -Insulin sliding scale -Elevated this morning will follow for trend. Dyslipidemia -Pravastatin Hypertension -Metolazone -Metoprolol DVT GI prophylaxis -Teds SCDs -Subcu heparin -Pepcid Overall impression: This gentleman is critically ill having sustained seizures which required intubation and mechanical ventilation for control. We are unable to wean him from the ventilator at this time. Critical care 40 minutes aside from procedures.
[2018-09-07] MEDS: Chlorhexidine 0.12% Oral Kit 15 ML UDC OROPHARYNG SCH ×2 (08:40→20:49)
[2018-09-07] MEDS: Allopurinol 100 MG Tablet PO SCH (08:45)
[2018-09-07] MEDS: Senna/Docusate Sodium 8.6/50 MG Tablet PO SCH ×2 (08:45→20:50)
[2018-09-07] MEDS: Metoprolol Tartrate 50 MG Tablet PO SCH ×2 (08:45→21:29)
[2018-09-07] MEDS: Magnesium Oxide 400 MG Tablet PO SCH ×2 (08:45→21:30)
[2018-09-07] MEDS: Famotidine PF Inj 20 MG/2 ML Vial IV.PUSH SCH ×2 (08:45→20:46)
[2018-09-07] MEDS ORDERED: Enoxaparin Inj 30 MG/0.3 ML Syringe SQ SCH (09:00)
[2018-09-07] MEDS: metOLazone 5 MG Tablet PO SCH (10:50)
--- NOTE | 2018-09-07 11:42 | P.CONNEU ---
History of Present Illness Service: Neurology Primary Care Provider: Gary Rivera Chief Complaint: Seizure History of Present Illness: 77-year-old male admitted for seizure activity noted by at home. Noted to have apparently dystonic type posturing of his right upper extremity. Brought in by [facility] received Versed en route. Was intubated stabilized on propofol no obvious seizure since that time. CT brain demonstrates improvement in left frontal hematoma. He was recently seen at the hospital after having a fall and focal traumatic intracranial frontal hemorrhage. He is on Eliquis which was reversed. He was discharged on Keppra. 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 - Medical History Medical History: Medical History (Last Reviewed 08/21/18 @ 10:38 by [employer]) Atrial fibrillation Diabetes Gout - Surgical History Surgical History: Surgical History (Last Reviewed 08/21/18 @ 10:38 by [employer]) AICD (automatic cardioverter/defibrillator) present - Tobacco History Second Hand Smoke Exposure: No Smoking Status: Cognitive impairment - Alcohol History How Often Do You Have a Drink Containing Alcohol: Unable to Obtain - Substance Use History Substance History: Unable to Obtain - Travel History Recent Travel in the [facility] Within the Last 8 Weeks: No - Immunization History Tetanus Immunization: Unable to Assess Medications and Allergies Active Medications: Active Medications Acetaminophen (Tylenol) 650 mg PO Q6H PRN PRN Reason: PAIN 1-10 AND/OR FEVER >101F Al Hydroxide/Mg Hydroxide (Milk Of Cesario Liq) 30 ml PO Q12H PRN PRN Reason: Mild Constipation Albuterol (Duoneb Neb (Prn)) 1 ampul NEB Q2HR NEB PRN PRN Reason: WHEEZING Allopurinol (Zyloprim) 100 mg PO DAILY [facility] Last Admin: 09/07/18 08:45 Dose: 100 mg Bisacodyl (Dulcolax Supp) 10 mg RECTAL DAILY PRN PRN Reason: SEVERE CONSITIPATION Chlorhexidine Gluconate (Peridex 0.12% Oral Kit) 15 ml OROPHARYNG BID@0800, 2000 [facility] Last Admin: 09/07/18 08:40 Dose: 15 ml Chlorhexidine Gluconate (Chlorhexidine 2% Cloth) 3 pack TOPICAL DAILY@0400 [facility] Stop: 09/12/18 03:59 Last Admin: 09/07/18 05:42 Dose: 3 pack Chlorhexidine Gluconate (Chlorhexidine 2% Cloth) 3 pack TOPICAL DAILY@0400 PRN PRN Reason: Extra cloth needed Stop: 09/12/18 03:59 Dextrose (D50w Vial) 50 ml IV.PUSH UNSCH PRN PRN Reason: PER HYPOGLYCEMIA PROTOCOL Diltiazem HCl (Cardizem Cd 24hr) 120 mg PO DAILY [facility] Famotidine (Pepcid Pf Inj) 10 mg IV.PUSH Q12HR [facility] Last Admin: 09/07/18 08:45 Dose: 10 mg Glucagon (Glucagon Inj) 1 mg OTHER PRN PRN PRN Reason: for Hypoglycemia Protocol Heparin Sodium (Porcine) (Heparin Inj) 5,000 units SQ Q8HR [facility] Last Admin: 09/07/18 05:54 Dose: 5,000 units Propofol (Diprivan 1000 Mg/100 Ml Inj) 1,000 mg in 100 mls @ 2.449 mls/hr IV.CONT TITRATE PRN; Protocol PRN Reason: Per Protocol Last Titration: 09/07/18 07:00 Dose: 5 mcg/kg/min, 2.45 mls/hr Sodium Chloride (Ns Inj) 1,000 mls @ 84 mls/hr IV.CONT .[id number] [facility] Last Admin: 09/07/18 10:49 Dose: 84 mls/hr Levetiracetam 500 mg/ Sodium (Chloride) 105 mls @ 400 mls/hr IV.SIG Q12H [facility] Last Infusion: 09/07/18 00:51 Dose: Infused Insulin Aspart (Novolog Insulin Correctional Sugar Inj) 0 unit SQ Q6HR [facility]; Protocol Last Admin: 09/07/18 05:54 Dose: 4 unit Lactulose (Lactulose Liq) 30 ml PO DAILY PRN PRN Reason: SEVERE CONSITIPATION Lorazepam (Ativan Inj) 1 mg IV.PUSH Q1H PRN PRN Reason: Agitation/sedation or Seizure Last Admin: 09/07/18 04:37 Dose: 1 mg Magnesium Oxide (Mag-Ox) 400 mg PO BID [facility] Last Admin: 09/07/18 08:45 Dose: 400 mg Metolazone (Zaroxolyn) 5 mg PO DAILY [facility] Last Admin: 09/07/18 10:50 Dose: 5 mg Metoprolol Tartrate (Lopressor) 50 mg PO BID [facility] Last Admin: 09/07/18 08:45 Dose: 50 mg Miscellaneous Medication () 1 each OROPHARYNG 0000,0400,1200,1600 [facility] Last Admin: 09/07/18 04:55 Dose: 1 each Morphine Sulfate (Morphine Inj) 2 mg IV.PUSH Q2H PRN PRN Reason: PAIN SCALE 6 TO 10 Ondansetron HCl (Zofran Inj) 4 mg IV.PUSH Q6H PRN PRN Reason: NAUSEA OR VOMITING Pravastatin Sodium (Pravachol) 40 mg PO HS [facility] Senna/Docusate Sodium (Janeen-Colace) 1 tab PO BID [facility] Last Admin: 09/07/18 08:45 Dose: 1 tab Sennosides (Senokot) 17.2 mg PO Q12H PRN PRN Reason: Moderate Constipation Sodium Chloride (Ns Flush) 2 ml IV.FLUSH PRN PRN PRN Reason: FLUSH AFTER USING IV ACCESS Sodium Chloride (Ns Flush) 2 ml IV.FLUSH BID [facility] Last Admin: 09/07/18 10:50 Dose: Not Given Sodium Chloride (Ns Flush) 2 ml IV.FLUSH PRN PRN PRN Reason: FLUSH AFTER USING IV ACCESS Allergies Allergy/AdvReac Type Severity Reaction Status Date / Time digitoxin Allergy Severe Hallucinati Verified 08/19/18 15:46 ons Home Medications Medication Instructions Recorded Confirmed Type diltiazem HCl 1 cap PO DAILY 08/19/18 08/19/18 History magnesium oxide 400 mg PO BID 08/19/18 08/19/18 History metolazone 5 mg PO DAILY 08/19/18 08/19/18 History metoprolol tartrate 50 mg PO BID 08/19/18 08/19/18 History potassium chloride 1 tab PO BID 08/19/18 08/19/18 History simvastatin 20 mg PO QPM 08/19/18 08/19/18 History Exam Vital signs: Vital Signs 09/06/18 22:39 09/06/18 22:48 09/06/18 23:48 Temperature Pulse Rate 110 H 84 Respiratory Rate 28 H 20 Blood Pressure 136/72 110/66 Pulse Oximetry 97 100 100 09/07/18 00:20 09/07/18 00:44 09/07/18 00:50 Temperature 97.0 F L Pulse Rate 76 Respiratory Rate 20 Blood Pressure 102/52 L Pulse Oximetry 100 100 09/07/18 01:11 09/07/18 01:51 09/07/18 02:41 Temperature Pulse Rate 76 82 88 Respiratory Rate 20 20 Blood Pressure 95/48 L 100/58 L 98/60 L Pulse Oximetry 100 100 09/07/18 03:35 09/07/18 03:48 09/07/18 04:00 Temperature 98.3 F Pulse Rate 82 Respiratory Rate 22 12 Blood Pressure 117/60 Pulse Oximetry 100 100 09/07/18 06:00 09/07/18 07:35 09/07/18 08:00 Temperature 95 F L Pulse Rate 87 90 Respiratory Rate 12 12 Blood Pressure 125/64 Pulse Oximetry 100 Intake & Output 09/06/18 09/07/18 09/07/18 18:59 06:59 18:59 Intake Total 205 / 205 1000 / 1000 Output Total 350 / 350 Balance -145 / -145 1000 / 1000 Weight 94.5 kg Intake: IV 205 / 205 1000 / 1000 NS Inj 1,000 ML @ 84 mls/hr IV. 1000 / 1000 CONT .[id number] [facility] Rx#:[id number] Rocephin Inj 1,000 MG In NS Inj 100 / 100 100 ML @ 200 mls/hr IV.SIG ONCE ONE Rx#:[id number] Keppra Inj 500 MG In NS Inj 100 105 / 105 ML @ 400 mls/hr IV.SIG Q12H [facility] Rx#:[id number] Output: Urine Amount (Catheter) 350 / 350 Indwelling Urethral Catheter 350 / 350 Other: Date of Last Bowel Movement 09/07/18 09/07/18 # Bowel Movements 1 Narrative: GENERAL: in NAD, SKIN: Warm and dry. HEAD: Atraumatic. Normocephalic. EYES: Sluggishly reactive ENT: Intubated NECK: Intubated CARDIOVASCULAR: Regular rate and rhythm. RESPIRATORY: Intubated GASTROINTESTINAL: Abdomen soft, non-tender, nondistended. MUSCULOSKELETAL: No obvious deformities. NEUROLOGICAL: Intubated, sedated no involuntary movements limited exam no gaze deviation, minimal localization of extremities PSYCHIATRIC: Intubated, calm - Constitutional no acute distress Results - Labs CBC & Chem 7: 09/07/18 05:49 09/07/18 05:49 Labs: Laboratory Results - last 24 hr 09/06/18 09/06/18 09/06/18 23:00 23:00 23:00 WBC 8.8 RBC 3.18 L Hgb 11.2 L Hct 34.4 L MCV 108.0 H MCH 35.0 H MCHC 32.5 RDW 17.6 H Plt Count 182 MPV 8.2 Neut % (Auto) 83.6 H Lymph % (Auto) 7.4 L [place] % (Auto) 7.0 Eos % (Auto) 1.2 Baso % (Auto) 0.8 Neut # (Auto) 7.3 Lymph # (Auto) 0.7 L [place] # (Auto) 0.6 Eos # (Auto) 0.1 Baso # (Auto) 0.1 WBC Differential . Differential Comment Auto diff final PT INR APTT Sodium 136 Potassium 3.3 L Chloride 91 L Carbon Dioxide 32.7 H Anion Gap 12 BUN 51 H Creatinine 2.12 H Estimated GFR 30 L POC Glucose Random Glucose 166 H Lactic Acid Calcium 8.9 Phosphorus Magnesium 1.6 Total Bilirubin AST ALT Alkaline Phosphatase Troponin I Less than 0.02 L Total Protein Albumin Nasal Screen MRSA (PCR) 09/07/18 09/07/18 09/07/18 04:00 05:49 05:49 WBC 9.0 RBC 2.86 L Hgb 10.0 L Hct 30.7 L MCV 107.4 H MCH 35.1 H MCHC 32.7 RDW 17.0 Plt Count 159 MPV 7.9 Neut % (Auto) 88.9 H Lymph % (Auto) 4.8 L [place] % (Auto) 5.7 Eos % (Auto) 0.1 Baso % (Auto) 0.5 Neut # (Auto) 8.0 H Lymph # (Auto) 0.4 L [place] # (Auto) 0.5 Eos # (Auto) 0.0 Baso # (Auto) 0.0 WBC Differential . Differential Comment Auto diff final PT 11.8 H INR 1.2 APTT 30.2 H Sodium Potassium Chloride Carbon Dioxide Anion Gap BUN Creatinine Estimated GFR POC Glucose Random Glucose Lactic Acid Calcium Phosphorus Magnesium Total Bilirubin AST ALT Alkaline Phosphatase Troponin I Total Protein Albumin Nasal Screen MRSA (PCR) Not detected 09/07/18 09/07/18 09/07/18 05:49 05:49 05:52 WBC RBC Hgb Hct MCV MCH MCHC RDW Plt Count MPV Neut % (Auto) Lymph % (Auto) [place] % (Auto) Eos % (Auto) Baso % (Auto) Neut # (Auto) Lymph # (Auto) [place] # (Auto) Eos # (Auto) Baso # (Auto) WBC Differential Differential Comment PT INR APTT Sodium 139 Potassium 3.4 L Chloride 96 L Carbon Dioxide 33.3 H Anion Gap 10 BUN 51 H Creatinine 1.74 H Estimated GFR 38 L POC Glucose 229 H Random Glucose 205 H Lactic Acid 1.3 Calcium 8.3 L Phosphorus 4.4 Magnesium 1.8 Total Bilirubin 1.2 H AST 16 ALT 9 L Alkaline Phosphatase 108 Troponin I 0.02 Total Protein 7.6 Albumin 3.2 L Nasal Screen MRSA (PCR) - Imaging Impressions Chest X-Ray 09/06/18 23:11 CONCLUSION: 1. Bibasilar densities. 2. 2. Cardiomegaly 3. 3. Endotracheal tube tip is 2.5 cm above the jose antonio. Head CT 09/07/18 22:54 CONCLUSION: 1. Decrease in size of left frontal hematoma. . Review/Management - Diagnosis (1) Localization-related (focal) (partial) symptomatic epilepsy and epileptic syndromes with complex partial seizures, intractable, with status epilepticus Code(s): G40.211 - Localization-related (focal) (partial) symptomatic epilepsy and epileptic syndromes with complex partial seizures, intractable, with status epilepticus Status: Acute Current Visit: Yes (2) Atrial fibrillation Code(s): I48.91 - Unspecified atrial fibrillation Status: Acute Current Visit: Yes (3) Acute encephalopathy Code(s): G93.40 - Encephalopathy, unspecified Status: Acute Current Visit: Yes (4) ICH (intracerebral hemorrhage) Code(s): I61.9 - Nontraumatic intracerebral hemorrhage, unspecified Status: Acute Current Visit: No - Review/Management Plan: Focal left focal status epilepticus secondary to left frontal hematoma Recommendation IV Cerebyx, phenobarbital, Vimpat Patient's on propofol drip; will consider Versed drip as well MRI brain SCDs Follow-up EEG Patient is critically ill. Patient is at risk for embolic ischemic strokes as he is off anticoagulation secondary to the left intracranial hemorrhage (4) ICH (intracerebral hemorrhage) Qualifiers: Intracerebral hemorrhage etiology: traumatic Encounter type: initial encounter Laterality: left Loss of consciousness presence/duration: with LOC of unspecified duration Qualified Code(s): S06.359A - Traumatic hemorrhage of left cerebrum with loss of consciousness of unspecified duration, initial encounter
[2018-09-07] MEDS ORDERED: Potassium Chlor 20 mEq Premix 20 MEQ/100 ML PIGGYBACK IV.SIG ONE (12:00)
[2018-09-07] MEDS ORDERED: Potassium Chloride Inj 20 MEQ/10 ML Vial IV.SIG ONE (12:00)
[2018-09-07] MEDS ORDERED: dilTIAZem CD 120 MG Capsule PO SCH (12:00)
[2018-09-07] MEDS: Lacosamide Inj 100 MG in Sodium Chlor 0.9% Inj 100 ML IV.SIG SCH ×2 (12:00→20:46)
[2018-09-07] MEDS ORDERED: Midazolam 50 MG/50 ML Inj 50 MG/50 ML BAG IV.CONT PRN (12:03)
[2018-09-07] MEDS: Fosphenytoin Inj 200 MGPE in Sodium Chlor 0.9% Inj 50 ML IV.SIG SCH ×2 (12:19→20:48)
--- NOTE | 2018-09-07 13:47 | P.DIET ---
Nutritional Evaluation Type of nutrition evaluation: initial Nutrition consult regarding: Tube Feeding Objective - Diagnosis Respiratory Failure, Seizure - Objective [place] body weight: 84 kg % IBW: 113 Body Weight Used for Calculations: IBW Energy Needs - Lower Range (kCal/kg): 25 Energy Needs - Upper Range (kCal/kg): 30 Lower Limit kCal/kg (kCals): 2,100 Upper Limit kCal/kg (kCals): 2,520 Lower Limit Protein Factor (Grams per Kg): 1.2 Upper Limit Protein Factor (Grams per Kg): 1.4 Lower Protein Needs (Protein): 102 Upper Protein Needs (Protein): 118 Dietitian Reviewed in Medical Record: Curent medications, Intake & Output, Labs , Medical history, Tube feeding Diet Order: NPO Objective Comments: PMH: DM, Gout, Afib, AICD placed Labs include: Glucose 205, POC Glu 229, Cr 1.74 Meds include: Propofol (weaning down) Assessment Assessment: Pt at nutritional risk r/t dx and need for a TF for nutrition support. Pt currently intubated/sedated on propofol (weaning down). Noted per MD; attempt to wean and extubate when seizure-free. Pt's nutritional needs as assessed above. TF Jevity 1.5 with goal rate 55ml/hr per MD. Pt with history of DM, recommmend TF Glucerna 1.5 with goal rate 60ml/hr to best meet pt's nutritional needs and for glucose control. TF will provide 2160kcals, 119gms protein and 1093mls free water. Will monitor TF tolerance, clinical course. Recommendations: TF recommend Glucerna 1.5 with goal rate 60ml/hr Dietitian to Monitor: Lab values, Glucose level, Intake & Output, Tube feeding tolerance, Weight change, Medical course
[2018-09-07] MEDS ORDERED: PHENobarbital Inj 130 MG/ML Vial IM SCH (14:00)
[2018-09-07] MEDS: Midazolam 50 MG/50 ML Inj 50 MG/50 ML BAG IV.CONT PRN (17:51)
[2018-09-07] MEDS: PHENobarbital Inj 130 MG/ML Vial IV.PUSH SCH (21:30)
--- NOTE | 2018-09-07 22:08 | ECG ---
Date Performed: 09/07/2018 Time Performed: 06:01:08 PTAGE: 77 years EKG: Atrial fibrillation PVCs Right axis Extensive ST-T changes are nonspecific Abnormal ECG Sin ce the PREVIOUS TRACING , no significant change noted DOCTOR: Iva Mann Interpretating Date/Time 09/07/2018 22:06:07
--- NOTE | 2018-09-07 22:14 | ECG ---
Date Performed: 09/06/2018 Time Performed: 22:55:18 PTAGE: 77 years EKG: ATRIAL FLUTTER/TACHYCARDIA WITH RAPID VENTRICULAR RESPONSE WITH ABERRANT CONDUCTION OR VENT RICULAR PREMATURE COMPLEXES MARKED RIGHT AXIS DEVIATION MODERATE INTRAVENTRICULAR CONDUCTION DELAY NO NSPECIFIC ST & T-WAVE ABNORMALITY ABNORMAL ECG PREVIOUS TRACING : 08/19/2018 15.43 Compared to previous tracing, atrial fibrillation no longe r present DOCTOR: Iva Mann Interpretating Date/Time 09/07/2018 22:13:22
[2018-09-08] MEDS: Insulin NovoLOG Aspart Correctional Sugar Inj SQ SCH ×4 (00:31→17:56)
[2018-09-08] MEDS: Oral Hygiene Kit OROPHARYNG SCH ×2 (00:31→05:57)
[2018-09-08] MEDS: Sod Chloride 0.9% Inj 1,000 ML IV.CONT SCH ×3 (00:32→11:15)
[2018-09-08] MEDS: Midazolam 50 MG/50 ML Inj 50 MG/50 ML BAG IV.CONT PRN ×3 (00:32→17:57)
[2018-09-08 04:35] LABS: Calcium 8.3 mg/dL (8.5-10.1); Carbon Dioxide 34.5 meq/L (21.0-32.0); Potassium 3.3 meq/L (3.5-5.1)
[2018-09-08 04:38] LABS: Phenytoin (Dilantin) 15.6 mcg/mL (10.0-20.0)
[2018-09-08] MEDS: Chlorhexidine Gluconate 2% 1 Pack (2 Cloths) TOPICAL SCH (05:57)
[2018-09-08] MEDS: Heparin - SQ 10,000 UNITS/ML Vial SQ SCH ×3 (05:58→21:00)
[2018-09-08] MEDS: PHENobarbital Inj 130 MG/ML Vial IV.PUSH SCH ×3 (05:58→20:59)
--- NOTE | 2018-09-08 06:25 | MG ---
cc: Abisai Bonilla MD EEG NUMBER: [id number] DESCRIPTION: Left frontal PLED appearance occurring, sharp waves occurring at about 1 Hz. Background theta and delta activity, 20-50 microvolts. Limited driving with photic stimulation. Single lead EKG showing sinus rhythm. INTERPRETATION: Left frontal periodic lateralized epileptiform discharges. MD MAYURI Carson/suleiman , 05:54 AM , 05:57 AM
--- NOTE | 2018-09-08 06:35 | P.PNCC ---
Subjective Subjective Remarks/Hospital Course: 69-year-old male with a history of recent ICH, and seizure disorder presents from home after he was seizing. Called paramedics arrived to find him seizing in the setting they gave him 2 of Versed to break his seizure after they establish IV access patient then in route has another seizure and they gave him 2 more Versed. The patient was a postictal voiding episode and became in respiratory distress needed to be intubated by the paramedics. They intubated him and arrived to emergency department sedated intubated and possibly seizing with contraction of the right hand. He was started on a propofol drip to keep him sedated as well as seizure-free and he has been admitted to the ICU. 09/07: No more seizure activity. Weaned to propofol 5 mics per kilogram per minute. AED restarted. CAT scan shows diminished size of left frontal lobe hematoma compared to prior study. 09/08: No more obvious seizure activity. Patient withdraws limbs aside from left foot. He grimaces to noxious stimulation. Breathes spontaneously over the ventilator. We need to confirm that he is indeed stopped seizing. Cerebyx added to Keppra. Objective Vital Signs / I&O: Vital Signs 09/07/18 07:35 09/07/18 08:00 09/07/18 10:00 Temperature 95 F L Pulse Rate 90 65 Respiratory Rate 12 12 Blood Pressure 125/64 Pulse Oximetry 100 09/07/18 12:00 09/07/18 14:00 09/07/18 16:00 Temperature 95.7 F L 96.1 F L Pulse Rate 64 71 65 Respiratory Rate 14 12 Blood Pressure 115/59 L 114/58 L Pulse Oximetry 100 97 09/07/18 16:21 09/07/18 18:00 09/07/18 19:43 Temperature Pulse Rate 73 Respiratory Rate 12 12 Blood Pressure Pulse Oximetry 97 100 09/07/18 20:00 09/07/18 22:00 09/08/18 00:00 Temperature 96.6 F L 97.2 F L Pulse Rate 74 72 86 Respiratory Rate 12 14 Blood Pressure 112/61 108/63 Pulse Oximetry 100 100 09/08/18 00:31 09/08/18 02:00 09/08/18 04:36 Temperature Pulse Rate 71 Respiratory Rate 13 14 Blood Pressure Pulse Oximetry 100 100 Intake & Output 09/07/18 09/07/18 09/08/18 06:59 18:59 06:59 Intake Total 1483 / 1483 214 / Output Total 350 / 350 800 / 800 Balance -145 / -145 683 / 683 / Weight 94.5 kg Intake: IV 1264 / 1264 / Versed Inj 50 mg In 50 ml @ 5 50 / 50 MG/HR 5 mls/hr IV.CONT TITRATE PRN Rx#:[id number] NS Inj 1,000 ML @ 84 mls/hr IV. 1000 / 1000 CONT .[id number] [facility] Rx#:[id number] Cerebyx Inj 200 MGPE In NS Inj 54 / 54 54 / 54 50 ML @ 216 mls/hr IV.SIG Q12HR [facility] Rx#:[id number] Vimpat Inj 100 MG In NS Inj 100 110 / 110 110 / 110 ML @ 110 mls/hr IV.SIG Q12HR [facility] Rx#:[id number] KCl 20 mEq Premix Inj 20 meq In 100 / 100 100 ml @ 50 mls/hr IV.SIG ONCE ONE Rx#:[id number] Rocephin Inj 1,000 MG In NS Inj 100 / 100 100 ML @ 200 mls/hr IV.SIG ONCE ONE Rx#:[id number] Keppra Inj 500 MG In NS Inj 100 105 / 105 ML @ 400 mls/hr IV.SIG Q12H [facility] Rx#:[id number] Tube Feeding 139 / 139 Water Bolus Amount 80 / 80 Output: Urine Amount (Catheter) 350 / 350 600 / 600 Indwelling Urethral Catheter 350 / 350 600 / 600 Gastric Drainage 200 / 200 Orogastric Tube 200 / 200 Other: Date of Last Bowel Movement 09/07/18 09/07/18 09/08/18 # Bowel Movements 1 0 Result Diagrams: 09/07/18 05:49 09/08/18 03:37 Objective Remarks: - Constitutional Calm, on mechanical ventilation - Routine HEENT Exam Head: Present: atraumatic Eye: Present: PERRL ENT: Present: mucous membranes moist - Routine Neck Exam Orotracheal intubation. Absent: JVD, carotid bruit - Routine Chest/Breast/Axilla Exam Chest wall: Normal excursion. Absent: tenderness - Routine Respiratory Exam Present: patient mechanically ventilated. Breath sounds clear. Absent: rhonchi , stridor, wheezes, crackles - Routine Cardiovascular Exam Present: S1, S2, irregularly irregular, no JVD. - Routine Abdominal Exam Present: soft, normoactive bowel sounds, no guarding - Routine Extremities Exam Warm, well-perfused. Absent: cyanosis, clubbing, edema - Routine Skin Exam Present: intact. Absent: cyanosis, erythema - Routine Neurological Exam Present: altered mental status, withdraws all extremities grossly. Grimaces to noxious stimulation. Breathes over ventilator rate. Assessment and Plan - Assessment and Plan Plan: Respiratory failure -Intubated for an airway protection -Attempt to wean and extubate when seizure-free -Vent bundle -DuoNeb's as needed -Start spontaneous breathing trials. Seizure -IV Keppra -EEG -Propofol -Neurology consultation -Cerebyx added 09/07 Frontal intraparenchymal ICH -Old from beginning of August -Decreasing in size -Continue seizure prophylaxis and treatment -No intervention indicated -Repeat head CT with decreased dimensions of hematoma compared to previous study. Atrial fibrillation -Metoprolol -Hold anticoagulation due to recent ICH Diabetes -Insulin sliding scale -Elevated this morning will follow for trend. Dyslipidemia -Pravastatin Hypertension -Metolazone -Metoprolol DVT GI prophylaxis -Teds SCDs -Subcu heparin -Pepcid Overall impression: This gentleman is critically ill having sustained seizures which required intubation and mechanical ventilation for control. We are unable to wean him from the ventilator at this time. Intermittent nonconvulsive seizures were documented yesterday by EEG. Continue to add treatment and confirm cessation of seizures before extubation. Critical care 38 minutes aside from procedures.
[2018-09-08] MEDS ORDERED: Potassium Chloride Inj 20 MEQ/10 ML Vial IV.SIG ONE ×2 (07:00→10:00)
[2018-09-08] MEDS ORDERED: Potassium Chlor 20 mEq Premix 20 MEQ/100 ML PIGGYBACK IV.SIG ONE ×2 (07:15→10:00)
--- NOTE | 2018-09-08 08:25 | P.PNNEU ---
Subjective Subjective Comments: No acute events Active Medications: Active Medications Acetaminophen (Tylenol) 650 mg PO Q6H PRN PRN Reason: PAIN 1-10 AND/OR FEVER >101F Al Hydroxide/Mg Hydroxide (Milk Of Cesario Lialexandria) 30 ml PO Q12H PRN PRN Reason: Mild Constipation Albuterol (Duoneb Neb (Prn)) 1 ampul NEB Q2HR NEB PRN PRN Reason: WHEEZING Allopurinol (Zyloprim) 100 mg PO DAILY [facility] Last Admin: 09/07/18 08:45 Dose: 100 mg Bisacodyl (Dulcolax Supp) 10 mg RECTAL DAILY PRN PRN Reason: SEVERE CONSITIPATION Chlorhexidine Gluconate (Peridex 0.12% Oral Kit) 15 ml OROPHARYNG BID@0800, 2000 [facility] Last Admin: 09/07/18 20:49 Dose: 15 ml Chlorhexidine Gluconate (Chlorhexidine 2% Cloth) 3 pack TOPICAL DAILY@0400 [facility] Stop: 09/12/18 03:59 Last Admin: 09/08/18 05:57 Dose: 3 pack Chlorhexidine Gluconate (Chlorhexidine 2% Cloth) 3 pack TOPICAL DAILY@0400 PRN PRN Reason: Extra cloth needed Stop: 09/12/18 03:59 Dextrose (D50w Vial) 50 ml IV.PUSH UNSCH PRN PRN Reason: PER HYPOGLYCEMIA PROTOCOL Diltiazem HCl (Cardizem Cd 24hr) 120 mg PO DAILY [facility] Last Admin: 09/07/18 12:00 Dose: Not Given Diltiazem HCl (Cardizem) 30 mg PO Q6H [facility] Famotidine (Pepcid Pf Inj) 10 mg IV.PUSH Q12HR [facility] Last Admin: 09/07/18 20:46 Dose: 10 mg Glucagon (Glucagon Inj) 1 mg OTHER PRN PRN PRN Reason: for Hypoglycemia Protocol Heparin Sodium (Porcine) (Heparin Inj) 5,000 units SQ Q8HR [facility] Last Admin: 09/08/18 05:58 Dose: 5,000 units Propofol (Diprivan 1000 Mg/100 Ml Inj) 1,000 mg in 100 mls @ 2.449 mls/hr IV.CONT TITRATE PRN; Protocol PRN Reason: Per Protocol Last Titration: 09/07/18 07:00 Dose: 5 mcg/kg/min, 2.45 mls/hr Sodium Chloride (Ns Inj) 1,000 mls @ 84 mls/hr IV.CONT .[id number] [facility] Last Admin: 09/08/18 00:32 Dose: 84 mls/hr Fosphenytoin Sodium 200 mgpe/ (Sodium Chloride) 54 mls @ 216 mls/hr IV.SIG Q12HR [facility] Last Infusion: 09/07/18 21:03 Dose: Infused Lacosamide 100 mg/ Sodium (Chloride) 110 mls @ 110 mls/hr IV.SIG Q12HR [facility] Last Infusion: 09/07/18 21:46 Dose: Infused Midazolam HCl (Versed Inj) 50 mg in 50 mls @ 5 mls/hr IV.CONT TITRATE PRN; Protocol PRN Reason: Per Protocol Last Admin: 09/08/18 00:32 Dose: 5 mg/hr, 5 mls/hr Potassium Chloride (Kcl 20 Meq Premix Inj) 20 meq in 100 mls @ 50 mls/hr IV.SIG ONCE ONE Stop: 09/08/18 09:14 Potassium Chloride (Kcl 20 Meq Premix Inj) 20 meq in 100 mls @ 50 mls/hr IV.SIG ONCE ONE Stop: 09/08/18 11:59 Insulin Aspart (Novolog Insulin Correctional Sugar Inj) 0 unit SQ Q6HR [facility]; Protocol Last Admin: 09/08/18 05:59 Dose: 4 unit Lactulose (Lactulose Liq) 30 ml PO DAILY PRN PRN Reason: SEVERE CONSITIPATION Lorazepam (Ativan Inj) 1 mg IV.PUSH Q1H PRN PRN Reason: Agitation/sedation or Seizure Last Admin: 09/07/18 04:37 Dose: 1 mg Magnesium Oxide (Mag-Ox) 400 mg PO BID [facility] Last Admin: 09/07/18 21:30 Dose: 400 mg Metolazone (Zaroxolyn) 5 mg PO DAILY [facility] Last Admin: 09/07/18 10:50 Dose: 5 mg Metoprolol Tartrate (Lopressor) 50 mg PO BID [facility] Last Admin: 09/07/18 21:29 Dose: 50 mg Miscellaneous Medication () 1 each OROPHARYNG 0000,0400,1200,1600 [facility] Last Admin: 09/08/18 05:57 Dose: 1 each Morphine Sulfate (Morphine Inj) 2 mg IV.PUSH Q2H PRN PRN Reason: PAIN SCALE 6 TO 10 Ondansetron HCl (Zofran Inj) 4 mg IV.PUSH Q6H PRN PRN Reason: NAUSEA OR VOMITING Phenobarbital Sodium (Luminal Inj) 60 mg IV.PUSH Q8HR [facility] Last Admin: 09/08/18 05:58 Dose: 60 mg Pravastatin Sodium (Pravachol) 40 mg PO HS [facility] Last Admin: 09/07/18 20:50 Dose: 40 mg Senna/Docusate Sodium (Janeen-Colace) 1 tab PO BID [facility] Last Admin: 09/07/18 20:50 Dose: 1 tab Sennosides (Senokot) 17.2 mg PO Q12H PRN PRN Reason: Moderate Constipation Sodium Chloride (Ns Flush) 2 ml IV.FLUSH BID [facility] Last Admin: 09/07/18 20:54 Dose: 2 ml Sodium Chloride (Ns Flush) 2 ml IV.FLUSH PRN PRN PRN Reason: FLUSH AFTER USING IV ACCESS Allergies/Adverse Reactions: Allergies Allergy/AdvReac Type Severity Reaction Status Date / Time digitoxin Allergy Severe Hallucinati Verified 08/19/18 15:46 ons Review of Systems unobtainable due to endotracheal tube, unobtainable due to mental status Physical Exam Vital signs: Vital Signs 09/07/18 10:00 09/07/18 12:00 09/07/18 14:00 Temperature 95.7 F L Pulse Rate 65 64 71 Respiratory Rate 14 Blood Pressure 115/59 L Pulse Oximetry 100 09/07/18 16:00 09/07/18 16:21 09/07/18 18:00 Temperature 96.1 F L Pulse Rate 65 73 Respiratory Rate 12 12 Blood Pressure 114/58 L Pulse Oximetry 97 97 09/07/18 19:43 09/07/18 20:00 09/07/18 22:00 Temperature 96.6 F L Pulse Rate 74 72 Respiratory Rate 12 12 Blood Pressure 112/61 Pulse Oximetry 100 100 09/08/18 00:00 09/08/18 00:31 09/08/18 02:00 Temperature 97.2 F L Pulse Rate 86 71 Respiratory Rate 14 13 Blood Pressure 108/63 Pulse Oximetry 100 100 09/08/18 04:00 09/08/18 04:36 09/08/18 06:00 Temperature 98.6 F Pulse Rate 69 66 Respiratory Rate 14 14 Blood Pressure 106/56 L Pulse Oximetry 100 100 09/08/18 07:51 Temperature Pulse Rate Respiratory Rate 17 Blood Pressure Pulse Oximetry 100 Intake & Output 09/07/18 09/08/18 09/08/18 18:59 06:59 18:59 Intake Total 1483 / 1483 963 / 963 Output Total 800 / 800 475 / 475 Balance 683 / 683 488 / 488 Weight 95.5 kg Intake: IV 1264 / 1264 214 / 214 Versed Inj 50 mg In 50 ml @ 5 50 / 50 MG/HR 5 mls/hr IV.CONT TITRATE PRN Rx#:[id number] NS Inj 1,000 ML @ 84 mls/hr IV. 1000 / 1000 CONT .[id number] [facility] Rx#:[id number] Cerebyx Inj 200 MGPE In NS Inj 54 / 54 54 / 54 50 ML @ 216 mls/hr IV.SIG Q12HR [facility] Rx#:[id number] Vimpat Inj 100 MG In NS Inj 100 110 / 110 110 / 110 ML @ 110 mls/hr IV.SIG Q12HR [facility] Rx#:[id number] KCl 20 mEq Premix Inj 20 meq In 100 / 100 100 ml @ 50 mls/hr IV.SIG ONCE ONE Rx#:[id number] Tube Feeding 139 / 139 749 / 749 Water Bolus Amount 80 / 80 Output: Urine Amount (Catheter) 600 / 600 475 / 475 Indwelling Urethral Catheter 600 / 600 475 / 475 Gastric Drainage 200 / 200 Orogastric Tube 200 / 200 Other: Date of Last Bowel Movement 09/07/18 09/08/18 # Bowel Movements 0 2 Narrative: GENERAL: in NAD, SKIN: Warm and dry. HEAD: Atraumatic. Normocephalic. EYES: Sluggishly reactive ENT: Intubated NECK: Intubated CARDIOVASCULAR: Regular rate and rhythm. RESPIRATORY: Intubated GASTROINTESTINAL: Abdomen soft, non-tender, nondistended. MUSCULOSKELETAL: No obvious deformities. NEUROLOGICAL: Intubated, sedated no involuntary movements limited exam, OU 2 mm sluggishly reactive no gaze deviation, minimal localization of extremities PSYCHIATRIC: Intubated, calm - Constitutional no acute distress - Routine HEENT Exam Head: Present: normocephalic - Urinary Catheter Management Indwelling Urethral Catheter Cath placed during this visit: yes Reason for continuing: Hourly intake/output Insertion date: 09/06/18 Insertion time: 23:00 Objective Laboratory Results - last 24 hr 09/07/18 09/07/18 09/07/18 12:45 13:37 17:34 Sodium Potassium Chloride Carbon Dioxide Anion Gap BUN Creatinine Estimated GFR POC Glucose 180 H 187 H Random Glucose Calcium Phenytoin 12.0 Phenobarbital Less than 2.1 L 09/08/18 09/08/18 09/08/18 00:04 03:37 05:49 Sodium 143 Potassium 3.3 L Chloride 102 Carbon Dioxide 34.5 H Anion Gap 7 BUN 46 H Creatinine 1.49 H Estimated GFR 46 L POC Glucose 180 H 200 H Random Glucose 157 H Calcium 8.3 L Phenytoin 15.6 Phenobarbital 3.3 L Review/Management - Diagnosis (1) Localization-related (focal) (partial) symptomatic epilepsy and epileptic syndromes with complex partial seizures, intractable, with status epilepticus Code(s): G40.211 - Localization-related (focal) (partial) symptomatic epilepsy and epileptic syndromes with complex partial seizures, intractable, with status epilepticus Status: Acute Current Visit: Yes (2) Atrial fibrillation Code(s): I48.91 - Unspecified atrial fibrillation Status: Acute Current Visit: Yes (3) Acute encephalopathy Code(s): G93.40 - Encephalopathy, unspecified Status: Acute Current Visit: Yes (4) ICH (intracerebral hemorrhage) Code(s): I61.9 - Nontraumatic intracerebral hemorrhage, unspecified Status: Acute Current Visit: No - Review/Management Plan: Focal left focal status epilepticus secondary to left frontal hematoma IV Cerebyx, phenobarbital, Vimpat No MRI brain secondary to AICD Recommendation Follow-up EEG today. If no further left frontal PLEDs will discontinue Versed drip Dilantin therapeutic. Phenobarbital subtherapeutic. Will increase dose Patient is critically ill. Patient is at risk for embolic ischemic strokes as he is off anticoagulation secondary to the left intracranial hemorrhage (4) ICH (intracerebral hemorrhage) Qualifiers: Intracerebral hemorrhage etiology: traumatic Encounter type: initial encounter Laterality: left Loss of consciousness presence/duration: with LOC of unspecified duration Qualified Code(s): S06.359A - Traumatic hemorrhage of left cerebrum with loss of consciousness of unspecified duration, initial encounter
[2018-09-08] MEDS: Famotidine PF Inj 20 MG/2 ML Vial IV.PUSH SCH ×2 (08:31→20:57)
[2018-09-08] MEDS: Senna/Docusate Sodium 8.6/50 MG Tablet PO SCH ×2 (08:32→20:16)
[2018-09-08] MEDS: Magnesium Oxide 400 MG Tablet PO SCH ×2 (08:32→20:15)
[2018-09-08] MEDS: metOLazone 5 MG Tablet PO SCH (08:32)
[2018-09-08] MEDS: Allopurinol 100 MG Tablet PO SCH (08:32)
[2018-09-08] MEDS: dilTIAZem 30 MG Tablet PO SCH ×3 (08:32→19:49)
[2018-09-08] MEDS: Metoprolol Tartrate 50 MG Tablet PO SCH ×2 (08:32→20:16)
[2018-09-08] MEDS: Chlorhexidine 0.12% Oral Kit 15 ML UDC OROPHARYNG SCH ×2 (08:33→19:49)
[2018-09-08] MEDS: Fosphenytoin Inj 200 MGPE in Sodium Chlor 0.9% Inj 50 ML IV.SIG SCH ×2 (10:00→20:17)
[2018-09-08] MEDS: Lacosamide Inj 100 MG in Sodium Chlor 0.9% Inj 100 ML IV.SIG SCH ×2 (10:23→20:17)
[2018-09-08] MEDS ORDERED: Phenylephrine Inj 40 MG in Sodium Chlor 0.9% Inj 496 ML IV.CONT PRN (13:39)
--- NOTE | 2018-09-08 15:11 | MR ---
EXAM DATE: 09/08/2018 9:21 AM EDT AGE/SEX: 77 years / Male INDICATIONS: Seizures. CLINICAL DATA: This is the patient's initial encounter. Patient reports that signs and symptoms have been present for 3 days and indicates a pain score of Nonresponsive. MEDICAL/SURGICAL HISTORY: Diabetes mellitus type II. CABG. ICD Placement. COMPARISON: [facility] – [place], [place], CT HEAD W/O CONTRAST, 09/07/2018. . TECHNIQUE: Multiplanar, multisequence examination of the brain was performed without contrast. FINDINGS: Cerebrum: Redemonstration of left frontal mid convexity intra-axial hematoma measuring 2 cm with suleman rounding vasogenic edema. There is mild associated mass effect without midline shift. Ventricles are stable in size and within normal limits for degree of atrophy. White Matter: Mild periventricular white matter T2 prolongation. Posterior Fossa: The cerebellum and brainstem are intact. The 4th ventricle is midline. The cerebel lopontine angle is unremarkable. The cerebellar tonsils are normal in position. Diffusion Imaging: Restricted diffusion noted in the parenchyma hematoma. No other focal regions of restricted diffusion. Extracranial: The visualized portions of the orbits are unremarkable.. Redemonstration of mucoperios teal thickening in the right maxillary sinus. CONCLUSION: 1. Evolving left frontal mid convexity intra-axial hematoma measuring 2 cm with mild surrounding vas ogenic edema but no significant mass effect or midline shift. 2. Otherwise, no intercurrent hemorrhage, acute infarction or hydrocephalus. Electronically signed by: Hector Pablo MD 09/08/2018 3:10 PM EDT
--- NOTE | 2018-09-08 21:15 | MG ---
cc: Benjamin Ribeiro MD ELECTROENCEPHALOGRAM NUMBER: [id number] INDICATION: Seizing, Versed, left frontal hematoma, left-sided PLEDs, diabetes, A-fib, phenobarbital, Vimpat. DESCRIPTION: There continues to be left hemisphere, especially left mid temporal dominant, epileptiform discharges, semi PLED-like, semi-periodic, occurring about once every second or 2 seconds and has a little bit of a field into the right hemisphere, especially strong in the left mid temporal and frontotemporal head region. Hyperventilation not performed. Photic stimulation is performed without significant posterior driving. IMPRESSION: Left frontotemporal, especially mid temporal, seizure focus, although no prolonged seizures are noted. It continues to be lateral semi-periodic epileptiform discharges, very frequent, and pretty much throughout the entire recording. MD DARBY Mahoney/denisse , 08:19 PM , 08:24 PM
[2018-09-09] MEDS: Oral Hygiene Kit OROPHARYNG SCH ×4 (00:36→16:00)
[2018-09-09] MEDS: Insulin NovoLOG Aspart Correctional Sugar Inj SQ SCH ×4 (00:54→19:02)
[2018-09-09] MEDS: dilTIAZem 30 MG Tablet PO SCH ×4 (02:13→20:00)
[2018-09-09] MEDS: Midazolam 50 MG/50 ML Inj 50 MG/50 ML BAG IV.CONT PRN (04:16)
[2018-09-09] MEDS: Chlorhexidine Gluconate 2% 1 Pack (2 Cloths) TOPICAL SCH (04:19)
[2018-09-09 04:50] LABS: Calcium 8.2 mg/dL (8.5-10.1); Carbon Dioxide 31.3 meq/L (21.0-32.0); Potassium 3.6 meq/L (3.5-5.1)
[2018-09-09 04:53] LABS: Phenytoin (Dilantin) 15.1 mcg/mL (10.0-20.0)
[2018-09-09] MEDS: Heparin - SQ 10,000 UNITS/ML Vial SQ SCH ×3 (05:12→21:41)
[2018-09-09] MEDS: PHENobarbital Inj 130 MG/ML Vial IV.PUSH SCH ×3 (05:12→21:40)
[2018-09-09] MEDS: Metoprolol Tartrate 50 MG Tablet PO SCH ×2 (08:52→20:00)
[2018-09-09] MEDS: Chlorhexidine 0.12% Oral Kit 15 ML UDC OROPHARYNG SCH ×2 (08:52→21:05)
[2018-09-09] MEDS: Allopurinol 100 MG Tablet PO SCH (08:53)
[2018-09-09] MEDS: Magnesium Oxide 400 MG Tablet PO SCH ×2 (08:53→20:00)
[2018-09-09] MEDS: Lacosamide Inj 100 MG in Sodium Chlor 0.9% Inj 100 ML IV.SIG SCH ×2 (08:53→21:40)
[2018-09-09] MEDS: Famotidine PF Inj 20 MG/2 ML Vial IV.PUSH SCH ×2 (08:54→20:01)
[2018-09-09] MEDS: Senna/Docusate Sodium 8.6/50 MG Tablet PO SCH (08:54)
[2018-09-09] MEDS: metOLazone 5 MG Tablet PO SCH (08:58)
[2018-09-09] MEDS: Fosphenytoin Inj 200 MGPE in Sodium Chlor 0.9% Inj 50 ML IV.SIG SCH ×2 (09:15→20:01)
--- NOTE | 2018-09-09 09:55 | P.PNCC ---
Subjective Subjective Remarks/Hospital Course: 69-year-old male with a history of recent ICH, and seizure disorder presents from home after he was seizing. Called paramedics arrived to find him seizing in the setting they gave him 2 of Versed to break his seizure after they establish IV access patient then in route has another seizure and they gave him 2 more Versed. The patient was a postictal voiding episode and became in respiratory distress needed to be intubated by the paramedics. They intubated him and arrived to emergency department sedated intubated and possibly seizing with contraction of the right hand. He was started on a propofol drip to keep him sedated as well as seizure-free and he has been admitted to the ICU. 09/07: No more seizure activity. Weaned to propofol 5 mics per kilogram per minute. AED restarted. CAT scan shows diminished size of left frontal lobe hematoma compared to prior study. 09/08: No more obvious seizure activity. Patient withdraws limbs aside from left foot. He grimaces to noxious stimulation. Breathes spontaneously over the ventilator. We need to confirm that he is indeed stopped seizing. Cerebyx added to Keppra. 09/09: Focus of left frontal intermittent seizure activity persists on 09/08. Still on Versed drip infusion and mechanical ventilation. Neurology service continues to adjust AED regimen. MRI yesterday without other significant injury aside from the known left frontal hematoma. Objective Vital Signs / I&O: Vital Signs 09/08/18 10:00 09/08/18 10:56 09/08/18 11:00 Temperature 98.2 F 98.4 F Pulse Rate 84 84 Respiratory Rate 15 15 Blood Pressure 97/59 L 93/58 L Pulse Oximetry 100 100 100 09/08/18 12:00 09/08/18 13:00 09/08/18 13:30 Temperature 98.8 F Pulse Rate 93 H 94 H Respiratory Rate 15 15 Blood Pressure 95/51 L 87/51 L 87/53 L Pulse Oximetry 99 98 09/08/18 13:58 09/08/18 14:00 09/08/18 14:26 Temperature 98.4 F Pulse Rate 107 H 107 H Respiratory Rate 14 14 Blood Pressure 85/50 L 89/50 L 96/58 L Pulse Oximetry 98 100 09/08/18 14:30 09/08/18 15:30 09/08/18 15:41 Temperature 98.2 F Pulse Rate 101 H 95 H Respiratory Rate 14 12 Blood Pressure 106/63 118/70 Pulse Oximetry 100 100 100 09/08/18 16:00 09/08/18 16:15 09/08/18 16:22 Temperature 98.5 F Pulse Rate 106 H 107 H Respiratory Rate 21 20 Blood Pressure 116/69 112/61 Pulse Oximetry 100 100 100 09/08/18 16:30 09/08/18 16:45 09/08/18 17:00 Temperature Pulse Rate 107 H 95 H 91 H Respiratory Rate Blood Pressure 110/65 101/60 105/63 Pulse Oximetry 100 100 100 09/08/18 17:15 09/08/18 17:30 09/08/18 17:45 Temperature Pulse Rate 87 80 73 Respiratory Rate Blood Pressure 117/61 115/63 109/63 Pulse Oximetry 100 100 100 09/08/18 18:00 09/08/18 18:15 09/08/18 18:30 Temperature Pulse Rate 73 75 73 Respiratory Rate Blood Pressure 108/56 L 119/74 116/56 L Pulse Oximetry 100 100 100 09/08/18 20:00 09/08/18 22:00 09/09/18 00:00 Temperature 99.2 F 98.9 F Pulse Rate 80 72 70 Respiratory Rate 12 13 Blood Pressure 116/70 106/57 L Pulse Oximetry 100 100 09/09/18 01:20 09/09/18 02:00 09/09/18 04:00 Temperature 98.2 F Pulse Rate 71 69 Respiratory Rate 12 12 12 Blood Pressure 109/55 L 115/58 L Pulse Oximetry 100 100 100 09/09/18 04:13 09/09/18 06:00 09/09/18 07:45 Temperature Pulse Rate 70 Respiratory Rate 13 12 12 Blood Pressure 120/57 L Pulse Oximetry 100 100 100 Intake & Output 09/08/18 09/09/18 09/09/18 18:59 06:59 18:59 Intake Total 2213 / 2213 2001 Output Total 250 / 250 400 / 400 Balance 1962 / 1962 1602 / 1602 Weight 95.1 kg Intake: IV 1464 / 1464 1214 / 1214 Versed Inj 50 mg In 50 ml @ 5 100 / 100 50 / 50 MG/HR 5 mls/hr IV.CONT TITRATE PRN Rx#:[id number] NS Inj 1,000 ML @ 84 mls/hr IV. 1000 / 1000 1000 / 1000 CONT .[id number] [facility] Rx#:[id number] Cerebyx Inj 200 MGPE In NS Inj 54 / 54 54 / 54 50 ML @ 216 mls/hr IV.SIG Q12HR [facility] Rx#:[id number] Vimpat Inj 100 MG In NS Inj 100 110 / 110 110 / 110 ML @ 110 mls/hr IV.SIG Q12HR [facility] Rx#:[id number] KCl 20 mEq Premix Inj 20 meq In 200 / 200 100 ml @ 50 mls/hr IV.SIG ONCE ONE Rx#:[id number] Tube Feeding 549 / 549 668 / 668 Water Bolus Amount 200 / 200 120 / 120 Output: Urine Amount (Catheter) 250 / 250 400 / 400 Indwelling Urethral Catheter 250 / 250 Straight 400 / 400 Other: Date of Last Bowel Movement 09/08/18 09/09/18 # Bowel Movements 1 # Incontinent Bowel Movements 1 Result Diagrams: 09/07/18 05:49 09/09/18 04:18 Objective Remarks: - Constitutional Calm, on mechanical ventilation - Routine HEENT Exam Head: Present: atraumatic Eye: Present: PERRL ENT: Present: mucous membranes moist - Routine Neck Exam Orotracheal intubation. Absent: JVD, carotid bruit - Routine Chest/Breast/Axilla Exam Chest wall: Normal excursion. Absent: tenderness - Routine Respiratory Exam Present: patient mechanically ventilated. Breath sounds clear. Absent: rhonchi , stridor, wheezes, crackles - Routine Cardiovascular Exam Present: S1, S2, irregularly irregular, no JVD. - Routine Abdominal Exam Present: soft, normoactive bowel sounds, no guarding - Routine Extremities Exam Warm, well-perfused. Absent: cyanosis, clubbing, edema - Routine Skin Exam Present: intact. Absent: cyanosis, erythema - Routine Neurological Exam Present: altered mental status, withdraws all extremities grossly. Grimaces to noxious stimulation. Breathes over ventilator rate. Assessment and Plan - Assessment and Plan Plan: Respiratory failure -Intubated for an airway protection -Attempt to wean and extubate when seizure-free -Vent bundle -DuoNeb's as needed -Start spontaneous breathing trials. Seizure -IV Keppra -EEG -Propofol -Neurology consultation -Cerebyx added 09/07 -Phenobarbital added -Left frontal focus of intermittent seizures persists 09/08 Left frontal intraparenchymal ICH -Old from beginning of August -Decreasing in size -Continue seizure prophylaxis and treatment -No intervention indicated -Repeat head CT with decreased dimensions of hematoma compared to previous study. Atrial fibrillation -Metoprolol -Hold anticoagulation due to recent ICH Diabetes -Insulin sliding scale -Elevated this morning will follow for trend. Dyslipidemia -Pravastatin Hypertension -Metolazone -Metoprolol C. difficile infection -Patient received vancomycin and Zosyn during hospital admission August 19 and was discharged on Levaquin. -Diarrheal stool noticed day 3, antigen and toxin positive -Oral vancomycin 250 4 times daily started 09/09 DVT GI prophylaxis -Teds SCDs -Subcu heparin -Pepcid Overall impression: This gentleman is critically ill having sustained seizures which required intubation and mechanical ventilation for control. We are unable to wean him from the ventilator at this time. Intermittent nonconvulsive seizures were documented yesterday by EEG. Continue to add AED treatment and confirm cessation of seizures before extubation. Remains critically ill and neurologically unstable. Critical care 38 minutes aside from procedures.
[2018-09-09] MEDS ORDERED: Magnesium Sulfate Inj 2 GM in Sodium Chlor 0.9% Inj 96 ML IV.SIG ONE (09:59)
[2018-09-09] MEDS: Sod Chloride 0.9% Inj 1,000 ML IV.CONT SCH ×3 (10:56→23:30)
[2018-09-10] MEDS: Oral Hygiene Kit OROPHARYNG SCH ×4 (00:15→16:48)
[2018-09-10] MEDS: dilTIAZem 30 MG Tablet PO SCH ×4 (03:04→20:44)
[2018-09-10] MEDS: Insulin NovoLOG Aspart Correctional Sugar Inj SQ SCH ×5 (03:10→23:19)
[2018-09-10] MEDS: Chlorhexidine Gluconate 2% 1 Pack (2 Cloths) TOPICAL SCH (05:33)
[2018-09-10] MEDS: Heparin - SQ 10,000 UNITS/ML Vial SQ SCH ×3 (05:33→21:28)
[2018-09-10] MEDS: PHENobarbital Inj 130 MG/ML Vial IV.PUSH SCH ×3 (05:34→21:28)
[2018-09-10 06:09] LABS: Calcium 8.4 mg/dL (8.5-10.1); Carbon Dioxide 27.5 meq/L (21.0-32.0); Potassium 4.2 meq/L (3.5-5.1)
[2018-09-10 06:15] LABS: Magnesium 2.3 mg/dL (1.5-2.5); Phenytoin (Dilantin) 19.8 mcg/mL (10.0-20.0); Phosphorus 2.4 mg/dL (2.5-4.9)
[2018-09-10] MEDS: Midazolam 50 MG/50 ML Inj 50 MG/50 ML BAG IV.CONT PRN ×3 (06:22→16:56)
--- NOTE | 2018-09-10 08:55 | P.PNCC ---
Subjective Subjective Remarks/Hospital Course: 69-year-old male with a history of recent ICH, and seizure disorder presents from home after he was seizing. Called paramedics arrived to find him seizing in the setting they gave him 2 of Versed to break his seizure after they establish IV access patient then in route has another seizure and they gave him 2 more Versed. The patient was a postictal voiding episode and became in respiratory distress needed to be intubated by the paramedics. They intubated him and arrived to emergency department sedated intubated and possibly seizing with contraction of the right hand. He was started on a propofol drip to keep him sedated as well as seizure-free and he has been admitted to the ICU. 09/07: No more seizure activity. Weaned to propofol 5 mics per kilogram per minute. AED restarted. CAT scan shows diminished size of left frontal lobe hematoma compared to prior study. 09/08: No more obvious seizure activity. Patient withdraws limbs aside from left foot. He grimaces to noxious stimulation. Breathes spontaneously over the ventilator. We need to confirm that he is indeed stopped seizing. Cerebyx added to Keppra. 09/09: Focus of left frontal intermittent seizure activity persists on 09/08. Still on Versed drip infusion and mechanical ventilation. Neurology service continues to adjust AED regimen. MRI yesterday without other significant injury aside from the known left frontal hematoma. 09/10: Focal area of intermittent seizure frontal lobe persisted yesterday on EEG. AED doses being adjusted. Urine output marginal, will reinstitute loop diuretic along with metolazone. Underlying cardiac function impaired at baseline with severe mitral and tricuspid regurgitation along with pulmonary hypertension as expected. Most recent echo is Objective Vital Signs / I&O: Vital Signs 09/09/18 10:00 09/09/18 11:56 09/09/18 12:00 Temperature 98.8 F Pulse Rate 88 74 Respiratory Rate 14 19 Blood Pressure 108/71 Pulse Oximetry 100 100 09/09/18 14:00 09/09/18 15:39 09/09/18 16:00 Temperature 98.7 F Pulse Rate 82 94 H Respiratory Rate 17 18 Blood Pressure 126/73 Pulse Oximetry 100 100 09/09/18 18:00 09/09/18 19:35 09/09/18 20:00 Temperature 99.9 F H Pulse Rate 108 H 112 H Respiratory Rate 22 16 Blood Pressure 123/66 Pulse Oximetry 100 100 09/09/18 22:00 09/10/18 00:00 09/10/18 01:05 Temperature 100.1 F H Pulse Rate 118 H 110 H Respiratory Rate 14 17 16 Blood Pressure 132/63 122/60 Pulse Oximetry 100 100 100 09/10/18 02:00 09/10/18 04:00 09/10/18 04:08 Temperature 100 F H Pulse Rate 110 H 106 H Respiratory Rate 12 12 13 Blood Pressure 127/79 112/56 L Pulse Oximetry 100 100 100 09/10/18 06:00 Temperature Pulse Rate 106 H Respiratory Rate 13 Blood Pressure 112/62 Pulse Oximetry 100 Intake & Output 09/09/18 09/10/18 09/10/18 18:59 06:59 18:59 Intake Total 1126 / 1126 1859 / 1859 Output Total 300 / 300 1200 / 1200 Balance 826 / 826 659 / 659 Weight 100.3 kg Intake: IV 264 / 264 1214 / 1214 Versed Inj 50 mg In 50 ml @ 5 50 / 50 MG/HR 5 mls/hr IV.CONT TITRATE PRN Rx#:[id number] NS Inj 1,000 ML @ 84 mls/hr IV. 1000 / 1000 CONT .[id number] [facility]END[facility] TO [facility] Rx#:[id number] Cerebyx Inj 200 MGPE In NS Inj 54 / 54 54 / 54 50 ML @ 216 mls/hr IV.SIG Q12HR [facility]END[facility] Rx#:[id number] Vimpat Inj 100 MG In NS Inj 100 110 / 110 110 / 110 ML @ 110 mls/hr IV.SIG Q12HR [facility]END[facility] Rx#:[id number] Magnesium Sulfate Inj 2 GM In 100 / 100 NS Inj 96 ML @ 50 mls/hr IV.SIG ONCE ONE Rx#:[id number] Tube Feeding 662 / 662 445 / 445 Tube Irrigant 200 / 200 Water Bolus Amount 200 / 200 Output: Stool 50 / 50 1200 / 1200 Urine Amount (Catheter) 250 / 250 Straight 250 / 250 Other: # Voids 1 # Incontinent Voids 1 Date of Last Bowel Movement 09/09/18 09/10/18 Result Diagrams: 09/07/18 05:49 09/10/18 05:10 Objective Remarks: - Constitutional Calm, on mechanical ventilation - Routine HEENT Exam Head: Present: atraumatic Eye: Present: PERRL ENT: Present: mucous membranes moist - Routine Neck Exam Orotracheal intubation. Absent: JVD, carotid bruit - Routine Chest/Breast/Axilla Exam Chest wall: Normal excursion. Absent: tenderness - Routine Respiratory Exam Present: patient mechanically ventilated. Breath sounds clear. Absent: rhonchi , stridor, wheezes, crackles - Routine Cardiovascular Exam Present: S1, S2, irregularly irregular, no JVD. - Routine Abdominal Exam Present: soft, normoactive bowel sounds, no guarding - Routine Extremities Exam Warm, well-perfused. Absent: cyanosis, clubbing, edema - Routine Skin Exam Present: intact. Absent: cyanosis, erythema - Routine Neurological Exam Present: altered mental status, withdraws all extremities grossly. Grimaces to noxious stimulation. Breathes over ventilator rate. Assessment and Plan - Assessment and Plan Plan: Respiratory failure -Intubated for an airway protection -Attempt to wean and extubate when seizure-free -Vent bundle -DuoNeb's as needed -Start spontaneous breathing trials. Seizure -IV Keppra -EEG -Propofol -Neurology consultation -Cerebyx added 09/07 -Phenobarbital added -Left frontal focus of intermittent seizures persists 09/08 Left frontal intraparenchymal ICH -Old from beginning of August -Decreasing in size -Continue seizure prophylaxis and treatment -No intervention indicated -Repeat head CT with decreased dimensions of hematoma compared to previous study. Atrial fibrillation -Metoprolol -Hold anticoagulation due to recent ICH Severe mitral and tricuspid regurgitation. Pulmonary hypertension. -Add Bumex 2 mg p.o. daily, continue metolazone Diabetes -Insulin sliding scale -Elevated this morning will follow for trend. Dyslipidemia -Pravastatin Hypertension -Metolazone -Metoprolol C. difficile infection -Patient received vancomycin and Zosyn during hospital admission August 19 and was discharged on Levaquin. -Diarrheal stool noticed day 3, antigen and toxin positive -Oral vancomycin 250 4 times daily started 09/09 DVT GI prophylaxis -Teds SCDs -Subcu heparin -Pepcid Overall impression: This gentleman is critically ill having sustained seizures which required intubation and mechanical ventilation for control. We are unable to wean him from the ventilator at this time. Intermittent nonconvulsive seizures were documented yesterday by EEG. Continue to add AED treatment and confirm cessation of seizures before extubation. Remains critically ill and neurologically unstable. Critical care 36 minutes aside from procedures.
--- NOTE | 2018-09-10 09:15 | MG ---
cc: Benjamin Ribeiro MD EEG NUMBER: [id number]. INDICATION: Left frontal hematoma, some PLEDs in the left. MEDICATIONS: Fosphenytoin, Vimpat. FINDINGS: Recording shows diffuse alpha and beta rhythms, looks improved from prior. One muscle artifact is seen over the left temporal head region. There are still some discharges over the left temporal head region, but they are not as frequent, occurring about every second to 2 seconds throughout the middle of the recording, although the beginning of the recording really were not present, and they are less sharp, sometimes there is a 5 second lag between the discharges. Photic stimulation is performed without significant posterior driving. IMPRESSION: The discharges are less frequent, have a lower amplitude, and have a smaller field over the left mid temporal head region. They are still present, but much improved. Benjamin Ribeiro MD DJM/rh , 08:33 AM , 08:38 AM
[2018-09-10] MEDS: Chlorhexidine 0.12% Oral Kit 15 ML UDC OROPHARYNG SCH ×2 (09:34→20:46)
[2018-09-10] MEDS: Magnesium Oxide 400 MG Tablet PO SCH ×2 (09:35→20:45)
[2018-09-10] MEDS: Allopurinol 100 MG Tablet PO SCH (09:35)
[2018-09-10] MEDS: Famotidine PF Inj 20 MG/2 ML Vial IV.PUSH SCH ×2 (09:35→20:45)
[2018-09-10] MEDS: metOLazone 5 MG Tablet PO SCH (09:35)
[2018-09-10] MEDS: Metoprolol Tartrate 50 MG Tablet PO SCH ×2 (09:35→20:45)
[2018-09-10] MEDS: Lacosamide Inj 100 MG in Sodium Chlor 0.9% Inj 100 ML IV.SIG SCH ×2 (09:44→21:00)
[2018-09-10] MEDS: Fosphenytoin Inj 200 MGPE in Sodium Chlor 0.9% Inj 50 ML IV.SIG SCH (09:52)
[2018-09-10] MEDS ORDERED: Potassium Phosphate Inj 30 MMOL in Sodium Chlor 0.9% Inj 250 ML IV.SIG ONE (10:00)
[2018-09-10] MEDS: Sod Chloride 0.9% Inj 1,000 ML IV.CONT SCH (13:02)
--- NOTE | 2018-09-10 16:42 | P.PNNEU ---
Subjective Subjective Comments: No acute events Active Medications: Active Medications Acetaminophen (Tylenol) 650 mg PO Q6H PRN PRN Reason: PAIN 1-10 AND/OR FEVER >101F Al Hydroxide/Mg Hydroxide (Milk Of Cesario Liq) 30 ml PO Q12H PRN PRN Reason: Mild Constipation Albuterol (Duoneb Neb (Prn)) 1 ampul NEB Q2HR NEB PRN PRN Reason: WHEEZING Allopurinol (Zyloprim) 100 mg PO DAILY [facility] Last Admin: 09/10/18 09:35 Dose: 100 mg Bumetanide (Bumex Inj) 2 mg IV.PUSH DAILY [facility] Last Admin: 09/10/18 09:58 Dose: 2 mg Chlorhexidine Gluconate (Peridex 0.12% Oral Kit) 15 ml OROPHARYNG BID@0800, 2000 [facility] Last Admin: 09/10/18 09:34 Dose: 15 ml Chlorhexidine Gluconate (Chlorhexidine 2% Cloth) 3 pack TOPICAL DAILY@0400 [facility] Stop: 09/12/18 03:59 Last Admin: 09/10/18 05:33 Dose: 3 pack Chlorhexidine Gluconate (Chlorhexidine 2% Cloth) 3 pack TOPICAL DAILY@0400 PRN PRN Reason: Extra cloth needed Stop: 09/12/18 03:59 Dextrose (D50w Vial) 50 ml IV.PUSH UNSCH PRN PRN Reason: PER HYPOGLYCEMIA PROTOCOL Diltiazem HCl (Cardizem Cd 24hr) 120 mg PO DAILY [facility] Last Admin: 09/07/18 12:00 Dose: Not Given Diltiazem HCl (Cardizem) 30 mg PO Q6H [facility] Last Admin: 09/10/18 14:00 Dose: 30 mg Famotidine (Pepcid Pf Inj) 10 mg IV.PUSH Q12HR [facility] Last Admin: 09/10/18 09:35 Dose: 10 mg Glucagon (Glucagon Inj) 1 mg OTHER PRN PRN PRN Reason: for Hypoglycemia Protocol Heparin Sodium (Porcine) (Heparin Inj) 5,000 units SQ Q8HR [facility] Last Admin: 09/10/18 14:00 Dose: 5,000 units Propofol (Diprivan 1000 Mg/100 Ml Inj) 1,000 mg in 100 mls @ 2.449 mls/hr IV.CONT TITRATE PRN; Protocol PRN Reason: Per Protocol Last Titration: 09/08/18 09:02 Dose: 0 mcg/kg/min, 0 mls/hr Sodium Chloride (Ns Inj) 1,000 mls @ 84 mls/hr IV.CONT .[id number] [facility] Last Admin: 09/10/18 13:02 Dose: 84 mls/hr Fosphenytoin Sodium 200 mgpe/ (Sodium Chloride) 54 mls @ 216 mls/hr IV.SIG Q12HR [facility] Last Infusion: 09/10/18 10:07 Dose: Infused Lacosamide 100 mg/ Sodium (Chloride) 110 mls @ 110 mls/hr IV.SIG Q12HR [facility] Last Infusion: 09/10/18 10:44 Dose: Infused Midazolam HCl (Versed Inj) 50 mg in 50 mls @ 5 mls/hr IV.CONT TITRATE PRN; Protocol PRN Reason: Per Protocol Last Admin: 09/10/18 06:22 Dose: 5 mg/hr, 5 mls/hr Phenylephrine HCl 40 mg/ (Sodium Chloride) 500 mls @ 30 mls/hr IV.CONT TITRATE PRN; Protocol PRN Reason: See Protocol Last Titration: 09/08/18 20:18 Dose: 0 mcg/min, 0 mls/hr Insulin Aspart (Novolog Insulin Correctional Sugar Inj) 0 unit SQ Q6HR [facility]; Protocol Last Admin: 09/10/18 13:00 Dose: 2 unit Lorazepam (Ativan Inj) 1 mg IV.PUSH Q1H PRN PRN Reason: Agitation/sedation or Seizure Last Admin: 09/07/18 04:37 Dose: 1 mg Magnesium Oxide (Mag-Ox) 400 mg PO BID [facility] Last Admin: 09/10/18 09:35 Dose: 400 mg Metolazone (Zaroxolyn) 5 mg PO DAILY [facility] Last Admin: 09/10/18 09:35 Dose: 5 mg Metoprolol Tartrate (Lopressor) 50 mg PO BID [facility] Last Admin: 09/10/18 09:35 Dose: 50 mg Miscellaneous Medication () 1 each OROPHARYNG 0000,0400,1200,1600 [facility] Last Admin: 09/10/18 13:03 Dose: 1 each Morphine Sulfate (Morphine Inj) 2 mg IV.PUSH Q2H PRN PRN Reason: PAIN SCALE 6 TO 10 Ondansetron HCl (Zofran Inj) 4 mg IV.PUSH Q6H PRN PRN Reason: NAUSEA OR VOMITING Phenobarbital Sodium (Luminal Inj) 90 mg IV.PUSH Q8HR [facility] Last Admin: 09/10/18 14:00 Dose: 90 mg Pravastatin Sodium (Pravachol) 40 mg PO HS [facility] Last Admin: 09/09/18 20:00 Dose: 40 mg Sodium Chloride (Ns Flush) 2 ml IV.FLUSH BID [facility] Last Admin: 09/10/18 09:54 Dose: 2 ml Sodium Chloride (Ns Flush) 2 ml IV.FLUSH PRN PRN PRN Reason: FLUSH AFTER USING IV ACCESS Last Admin: 09/09/18 21:41 Dose: 2 ml Terbutaline Sulfate (Brethine Inj) 1 mg SQ UNSCH PRN PRN Reason: For Extravasation Vancomycin HCl (Vancomycin Po) 250 mg PO QID [facility] Last Admin: 09/10/18 14:00 Dose: 250 mg Allergies/Adverse Reactions: Allergies Allergy/AdvReac Type Severity Reaction Status Date / Time digitoxin Allergy Severe Hallucinati Verified 08/19/18 15:46 ons Review of Systems All other systems reviewed negative except as stated in HPI Physical Exam Vital signs: Vital Signs 09/09/18 18:00 09/09/18 19:35 09/09/18 20:00 Temperature 99.9 F H Pulse Rate 108 H 112 H Respiratory Rate 22 16 Blood Pressure 123/66 Pulse Oximetry 100 100 09/09/18 21:05 09/09/18 22:00 09/09/18 22:05 Temperature Pulse Rate 115 H 118 H 116 H Respiratory Rate 14 Blood Pressure 136/63 132/63 132/63 Pulse Oximetry 100 100 100 09/09/18 23:00 09/09/18 23:05 09/10/18 00:00 Temperature 100.1 F H Pulse Rate 113 H 112 H 111 H Respiratory Rate 17 Blood Pressure 119/65 122/60 Pulse Oximetry 100 100 100 09/10/18 00:37 09/10/18 01:00 09/10/18 01:05 Temperature Pulse Rate 108 H 107 H 109 H Respiratory Rate 16 Blood Pressure 122/66 122/71 Pulse Oximetry 100 100 100 09/10/18 02:00 09/10/18 02:05 09/10/18 03:00 Temperature Pulse Rate 106 H 107 H 105 H Respiratory Rate 12 Blood Pressure 127/79 127/79 Pulse Oximetry 100 100 100 09/10/18 03:05 09/10/18 04:00 09/10/18 04:05 Temperature 100 F H Pulse Rate 104 H 106 H 104 H Respiratory Rate 12 Blood Pressure 127/59 L 112/56 L 112/56 L Pulse Oximetry 100 100 100 09/10/18 04:08 09/10/18 05:00 09/10/18 05:05 Temperature Pulse Rate 101 H 103 H Respiratory Rate 13 Blood Pressure 117/64 Pulse Oximetry 100 100 100 09/10/18 06:00 09/10/18 06:05 09/10/18 07:00 Temperature Pulse Rate 107 H 105 H 101 H Respiratory Rate 13 Blood Pressure 112/62 112/62 Pulse Oximetry 100 100 100 09/10/18 07:05 09/10/18 08:00 09/10/18 08:05 Temperature 98.5 F Pulse Rate 102 H 102 H 103 H Respiratory Rate 20 Blood Pressure 107/56 L 114/64 114/64 Pulse Oximetry 100 100 100 09/10/18 08:35 09/10/18 09:00 09/10/18 09:05 Temperature Pulse Rate 102 H 105 H Respiratory Rate 20 Blood Pressure 106/59 L Pulse Oximetry 100 100 100 09/10/18 10:00 09/10/18 10:05 09/10/18 11:00 Temperature Pulse Rate 100 H 107 H 104 H Respiratory Rate Blood Pressure 122/69 Pulse Oximetry 100 100 100 09/10/18 11:05 09/10/18 12:00 09/10/18 12:05 Temperature 97.1 F L 97.1 F L Pulse Rate 105 H 90 89 Respiratory Rate 21 Blood Pressure 111/64 101/58 L 101/58 L Pulse Oximetry 100 100 100 09/10/18 13:00 09/10/18 13:05 09/10/18 14:00 Temperature Pulse Rate 87 88 90 Respiratory Rate Blood Pressure 106/61 Pulse Oximetry 100 100 09/10/18 16:06 Temperature Pulse Rate Respiratory Rate 18 Blood Pressure Pulse Oximetry 95 Intake & Output 09/09/18 09/10/18 09/10/18 18:59 06:59 18:59 Intake Total 1126 / 1126 1859 / 1859 1164 / 1164 Output Total 300 / 300 1200 / 1200 Balance 826 / 826 659 / 659 1164 / 1164 Weight 100.3 kg Intake: IV 264 / 264 1214 / 1214 1164 / 1164 Versed Inj 50 mg In 50 ml @ 5 50 / 50 MG/HR 5 mls/hr IV.CONT TITRATE PRN Rx#:[id number] NS Inj 1,000 ML @ 84 mls/hr IV. 1000 / 1000 1000 / 1000 CONT .[id number] [facility] Rx#:[id number] Cerebyx Inj 200 MGPE In NS Inj 54 / 54 54 / 54 54 / 54 50 ML @ 216 mls/hr IV.SIG Q12HR [facility] Rx#:[id number] Vimpat Inj 100 MG In NS Inj 100 110 / 110 110 / 110 110 / 110 ML @ 110 mls/hr IV.SIG Q12HR [facility] Rx#:[id number] Magnesium Sulfate Inj 2 GM In 100 / 100 NS Inj 96 ML @ 50 mls/hr IV.SIG ONCE ONE Rx#:[id number] Tube Feeding 662 / 662 445 / 445 Tube Irrigant 200 / 200 Water Bolus Amount 200 / 200 Output: Stool 50 / 50 1200 / 1200 Urine Amount (Catheter) 250 / 250 Straight 250 / 250 Other: # Voids 1 # Incontinent Voids 1 Date of Last Bowel Movement 09/09/18 09/10/18 Narrative: GENERAL: in NAD, SKIN: Warm and dry. HEAD: Atraumatic. Normocephalic. EYES: Sluggishly reactive ENT: Intubated NECK: Intubated CARDIOVASCULAR: Regular rate and rhythm. RESPIRATORY: Intubated GASTROINTESTINAL: Abdomen soft, non-tender, nondistended. MUSCULOSKELETAL: No obvious deformities. Bilateral lower extremity edema NEUROLOGICAL: Intubated, sedated no involuntary movements limited exam, OU 2 mm sluggishly reactive no gaze deviation, minimal localization of extremities PSYCHIATRIC: Intubated, calm - Constitutional no acute distress - Routine HEENT Exam Head: Present: normocephalic - Urinary Catheter Management Indwelling Urethral Catheter Cath placed during this visit: yes, but has since been removed by the nurse Reason for continuing: Decision to DC catheter Insertion date: 09/06/18 Insertion time: 23:00 Removal date: 09/08/18 Removal time: 18:21 Straight Cath placed during this visit: yes, but has since been removed by the nurse Reason for continuing: Not indwelling catheter Insertion date: 09/09/18 Insertion time: 02:20 Removal time: 02:40 Objective Laboratory Results - last 24 hr 09/09/18 09/09/18 09/10/18 18:41 21:14 00:19 Sodium Potassium Chloride Carbon Dioxide Anion Gap BUN Creatinine Estimated GFR POC Glucose 143 H 351 H 135 H Random Glucose Calcium Phosphorus Magnesium Phenytoin Phenobarbital 09/10/18 09/10/18 09/10/18 05:10 05:10 13:18 Sodium 146 H Potassium 4.2 Chloride 110 H Carbon Dioxide 27.5 Anion Gap 9 BUN 51 H Creatinine 1.43 H Estimated GFR 48 L POC Glucose 161 H Random Glucose 159 H Calcium 8.4 L Phosphorus 2.4 L Magnesium 2.3 Phenytoin 19.8 Phenobarbital 7.2 L Review/Management - Diagnosis (1) Localization-related (focal) (partial) symptomatic epilepsy and epileptic syndromes with complex partial seizures, intractable, with status epilepticus Code(s): G40.211 - Localization-related (focal) (partial) symptomatic epilepsy and epileptic syndromes with complex partial seizures, intractable, with status epilepticus Status: Acute Current Visit: Yes (2) Atrial fibrillation Code(s): I48.91 - Unspecified atrial fibrillation Status: Acute Current Visit: Yes (3) Acute encephalopathy Code(s): G93.40 - Encephalopathy, unspecified Status: Acute Current Visit: Yes (4) ICH (intracerebral hemorrhage) Code(s): I61.9 - Nontraumatic intracerebral hemorrhage, unspecified Status: Acute Current Visit: No - Review/Management Plan: Focal left focal status epilepticus secondary to left frontal hematoma IV Cerebyx, phenobarbital, Vimpat No MRI brain secondary to AICD Recommendation We will lower dose of IV Celebrex as it sign normal, patient with low albumin Follow-up EEG Last EEG looks improved With lower Versed dose If discharge persists may need to ask neurosurgery to see if evacuation would be beneficial as it appears seizure source is in that region Patient is critically ill. Patient is at risk for embolic ischemic strokes as he is off anticoagulation secondary to the left intracranial hemorrhage (4) ICH (intracerebral hemorrhage) Qualifiers: Intracerebral hemorrhage etiology: traumatic Encounter type: initial encounter Laterality: left Loss of consciousness presence/duration: with LOC of unspecified duration Qualified Code(s): S06.359A - Traumatic hemorrhage of left cerebrum with loss of consciousness of unspecified duration, initial encounter
[2018-09-11] MEDS: dilTIAZem 30 MG Tablet PO SCH ×4 (01:13→20:35)
[2018-09-11] MEDS: Sod Chloride 0.9% Inj 1,000 ML IV.CONT SCH ×3 (01:13→23:48)
[2018-09-11 04:08] LABS: Albumin 2.5 g/dL (3.4-5.0); Calcium 8.4 mg/dL (8.5-10.1); Carbon Dioxide 26.6 meq/L (21.0-32.0); Potassium 4.5 meq/L (3.5-5.1)
[2018-09-11 04:11] LABS: Phenytoin (Dilantin) 18.3 mcg/mL (10.0-20.0)
[2018-09-11] MEDS: Chlorhexidine Gluconate 2% 1 Pack (2 Cloths) TOPICAL SCH (04:18)
[2018-09-11] MEDS: PHENobarbital Inj 130 MG/ML Vial IV.PUSH SCH ×3 (05:09→21:46)
[2018-09-11] MEDS: Heparin - SQ 10,000 UNITS/ML Vial SQ SCH ×3 (05:09→21:47)
[2018-09-11] MEDS: Insulin NovoLOG Aspart Correctional Sugar Inj SQ SCH ×3 (05:10→18:52)
[2018-09-11] MEDS: metOLazone 5 MG Tablet PO SCH (08:50)
[2018-09-11] MEDS: Allopurinol 100 MG Tablet PO SCH (08:50)
[2018-09-11] MEDS: Lacosamide Inj 100 MG in Sodium Chlor 0.9% Inj 100 ML IV.SIG SCH ×2 (08:50→21:51)
[2018-09-11] MEDS: Magnesium Oxide 400 MG Tablet PO SCH ×2 (08:50→21:50)
[2018-09-11] MEDS: Metoprolol Tartrate 50 MG Tablet PO SCH ×2 (08:51→21:46)
[2018-09-11] MEDS: Famotidine PF Inj 20 MG/2 ML Vial IV.PUSH SCH ×2 (08:51→21:47)
[2018-09-11] MEDS: Oral Hygiene Kit OROPHARYNG SCH ×5 (08:53→17:06)
[2018-09-11] MEDS: Chlorhexidine 0.12% Oral Kit 15 ML UDC OROPHARYNG SCH ×2 (08:54→20:50)
--- NOTE | 2018-09-11 09:05 | P.PNCC ---
Subjective Subjective Remarks/Hospital Course: 69-year-old male with a history of recent ICH, and seizure disorder presents from home after he was seizing. Called paramedics arrived to find him seizing in the setting they gave him 2 of Versed to break his seizure after they establish IV access patient then in route has another seizure and they gave him 2 more Versed. The patient was a postictal voiding episode and became in respiratory distress needed to be intubated by the paramedics. They intubated him and arrived to emergency department sedated intubated and possibly seizing with contraction of the right hand. He was started on a propofol drip to keep him sedated as well as seizure-free and he has been admitted to the ICU. 09/07: No more seizure activity. Weaned to propofol 5 mics per kilogram per minute. AED restarted. CAT scan shows diminished size of left frontal lobe hematoma compared to prior study. 09/08: No more obvious seizure activity. Patient withdraws limbs aside from left foot. He grimaces to noxious stimulation. Breathes spontaneously over the ventilator. We need to confirm that he is indeed stopped seizing. Cerebyx added to Keppra. 09/09: Focus of left frontal intermittent seizure activity persists on 09/08. Still on Versed drip infusion and mechanical ventilation. Neurology service continues to adjust AED regimen. MRI yesterday without other significant injury aside from the known left frontal hematoma. 09/10: Focal area of intermittent seizure frontal lobe persisted yesterday on EEG. AED doses being adjusted. Urine output marginal, will reinstitute loop diuretic along with metolazone. Underlying cardiac function impaired at baseline with severe mitral and tricuspid regurgitation along with pulmonary hypertension as expected. Most recent echo is about a month ago. 09/11: Continued left fronto temporal seizure activity despite 3 AEDs. Juxtaposition of this 2 cm maturing left frontal lobe hematoma to the seizure activity is probably not coincidental. I have discussed with the family the concept of excising the mature hematoma in an attempt to attenuate the seizure activity. Objective Vital Signs / I&O: Vital Signs 09/10/18 09:05 09/10/18 10:00 09/10/18 10:05 Temperature Pulse Rate 105 H 100 H 107 H Respiratory Rate Blood Pressure 106/59 L 122/69 Pulse Oximetry 100 100 100 09/10/18 11:00 09/10/18 11:05 09/10/18 12:00 Temperature 97.1 F L Pulse Rate 104 H 105 H 90 Respiratory Rate 21 Blood Pressure 111/64 101/58 L Pulse Oximetry 100 100 100 09/10/18 12:05 09/10/18 13:00 09/10/18 13:05 Temperature 97.1 F L Pulse Rate 89 87 88 Respiratory Rate Blood Pressure 101/58 L 106/61 Pulse Oximetry 100 100 100 09/10/18 14:00 09/10/18 16:00 09/10/18 16:06 Temperature 98.7 F Pulse Rate 90 92 H Respiratory Rate 21 18 Blood Pressure 99/56 L Pulse Oximetry 100 95 09/10/18 18:00 09/10/18 19:36 09/10/18 20:00 Temperature 98.0 F Pulse Rate 90 96 H Respiratory Rate 18 12 Blood Pressure 104/59 L Pulse Oximetry 100 100 09/10/18 22:00 09/11/18 00:00 09/11/18 01:11 Temperature 97.9 F Pulse Rate 90 90 Respiratory Rate 12 12 Blood Pressure 111/62 Pulse Oximetry 100 100 09/11/18 02:00 09/11/18 04:00 09/11/18 04:02 Temperature 98.2 F Pulse Rate 93 H 98 H Respiratory Rate 13 15 Blood Pressure 113/62 Pulse Oximetry 100 100 09/11/18 06:00 09/11/18 07:58 Temperature Pulse Rate 95 H Respiratory Rate 23 Blood Pressure Pulse Oximetry 100 Intake & Output 09/10/18 09/11/18 09/11/18 18:59 06:59 18:59 Intake Total 2057 / 2057 1877 / 1877 Output Total 1300 / 1300 800 / 800 Balance 757 / 757 1077 / 1077 Weight 104.1 kg Intake: IV 1214 / 1214 1110 / 1110 Versed Inj 50 mg In 50 ml @ 5 50 / 50 MG/HR 5 mls/hr IV.CONT TITRATE PRN Rx#:[id number] NS Inj 1,000 ML @ 84 mls/hr IV. 1000 / 1000 1000 / 1000 CONT .[id number] [facility] Rx#:[id number] Cerebyx Inj 200 MGPE In NS Inj 54 / 54 50 ML @ 216 mls/hr IV.SIG Q12HR [facility] Rx#:[id number] Vimpat Inj 100 MG In NS Inj 100 110 / 110 110 / 110 ML @ 110 mls/hr IV.SIG Q12HR [facility] Rx#:[id number] Tube Feeding 543 / 543 567 / 567 Tube Irrigant 300 / 300 200 / 200 Output: Stool 1300 / 1300 800 / 800 Other: # Voids 4 # Incontinent Voids 4 2 Date of Last Bowel Movement 09/10/18 09/11/18 Result Diagrams: 09/07/18 05:49 09/11/18 02:35 Objective Remarks: - Constitutional Calm, on mechanical ventilation - Routine HEENT Exam Head: Present: atraumatic Eye: Present: PERRL ENT: Present: mucous membranes moist - Routine Neck Exam Orotracheal intubation. Absent: JVD, carotid bruit - Routine Chest/Breast/Axilla Exam Chest wall: Normal excursion. Absent: tenderness - Routine Respiratory Exam Present: patient mechanically ventilated. Breath sounds clear. Absent: rhonchi , stridor, wheezes, crackles - Routine Cardiovascular Exam Present: S1, S2, irregularly irregular rhythm, no JVD. - Routine Abdominal Exam Present: soft, normoactive bowel sounds, no guarding - Routine Extremities Exam Warm, well-perfused. Absent: cyanosis, clubbing, edema - Routine Skin Exam Present: intact. Absent: cyanosis, erythema - Routine Neurological Exam Present: altered mental status, withdraws all extremities grossly. Heavily sedated now for seizure control. Breathes over ventilator rate. Assessment and Plan - Assessment and Plan Plan: Respiratory failure -Intubated for an airway protection -Attempt to wean and extubate when seizure-free -Vent bundle -DuoNeb's as needed -Start spontaneous breathing trials now that Versed has been discontinued Seizure -IV Keppra -EEG -Propofol -Neurology consultation -Cerebyx added 09/07 -Phenobarbital added -Left frontal focus of intermittent seizures persists 09/08, 09/10, 09/11 Left frontal intraparenchymal ICH -Old from beginning of August -Decreasing in size -Continue seizure prophylaxis and treatment -No intervention indicated -Repeat head CT with decreased dimensions of hematoma compared to previous study. Atrial fibrillation -Metoprolol -Hold anticoagulation due to recent ICH Severe mitral and tricuspid regurgitation. Pulmonary hypertension. -Decrease Bumex 1 milligram IV daily, continue metolazone Diabetes -Insulin sliding scale -Elevated this morning will follow for trend. Dyslipidemia -Pravastatin Hypertension -Metolazone -Metoprolol C. difficile infection -Patient received vancomycin and Zosyn during hospital admission August 19 and was discharged on Levaquin. -Diarrheal stool noticed day 3, antigen and toxin positive -Oral vancomycin 250 4 times daily started 09/09 DVT GI prophylaxis -Teds SCDs -Subcu heparin -Pepcid Overall impression: This gentleman is critically ill having sustained seizures which required intubation and mechanical ventilation for control. We are unable to wean him from the ventilator at this time. Intermittent nonconvulsive seizures were documented yesterday by EEG. Continue to add AED treatment and confirm cessation of seizures before extubation. Remains critically ill and neurologically unstable. Episodic seizure activity persists in the left frontal lobe. Operative eradication of the seizure focus may be necessary at this point. Critical care 42 minutes aside from procedures.
--- NOTE | 2018-09-11 09:38 | P.PNNEU ---
Subjective Subjective Comments: no acute events Active Medications: Active Medications Acetaminophen (Tylenol) 650 mg PO Q6H PRN PRN Reason: PAIN 1-10 AND/OR FEVER >101F Al Hydroxide/Mg Hydroxide (Milk Of Cesario Liq) 30 ml PO Q12H PRN PRN Reason: Mild Constipation Albuterol (Duoneb Neb (Prn)) 1 ampul NEB Q2HR NEB PRN PRN Reason: WHEEZING Allopurinol (Zyloprim) 100 mg PO DAILY [facility] Last Admin: 09/11/18 08:50 Dose: 100 mg Bumetanide (Bumex Inj) 1 mg IV.PUSH DAILY [facility] Chlorhexidine Gluconate (Peridex 0.12% Oral Kit) 15 ml OROPHARYNG BID@0800, 2000 [facility] Last Admin: 09/11/18 08:54 Dose: 15 ml Chlorhexidine Gluconate (Chlorhexidine 2% Cloth) 3 pack TOPICAL DAILY@0400 [facility] Stop: 09/12/18 03:59 Last Admin: 09/11/18 04:18 Dose: 3 pack Chlorhexidine Gluconate (Chlorhexidine 2% Cloth) 3 pack TOPICAL DAILY@0400 PRN PRN Reason: Extra cloth needed Stop: 09/12/18 03:59 Dextrose (D50w Vial) 50 ml IV.PUSH UNSCH PRN PRN Reason: PER HYPOGLYCEMIA PROTOCOL Diltiazem HCl (Cardizem Cd 24hr) 120 mg PO DAILY [facility] Last Admin: 09/07/18 12:00 Dose: Not Given Diltiazem HCl (Cardizem) 30 mg PO Q6H [facility] Last Admin: 09/11/18 08:50 Dose: 30 mg Famotidine (Pepcid Pf Inj) 10 mg IV.PUSH Q12HR [facility] Last Admin: 09/11/18 08:51 Dose: 10 mg Glucagon (Glucagon Inj) 1 mg OTHER PRN PRN PRN Reason: for Hypoglycemia Protocol Heparin Sodium (Porcine) (Heparin Inj) 5,000 units SQ Q8HR [facility] Last Admin: 09/11/18 05:09 Dose: 5,000 units Propofol (Diprivan 1000 Mg/100 Ml Inj) 1,000 mg in 100 mls @ 2.449 mls/hr IV.CONT TITRATE PRN; Protocol PRN Reason: Per Protocol Last Titration: 09/08/18 09:02 Dose: 0 mcg/kg/min, 0 mls/hr Sodium Chloride (Ns Inj) 1,000 mls @ 84 mls/hr IV.CONT .[id number] [facility] Last Admin: 09/11/18 01:13 Dose: 84 mls/hr Lacosamide 100 mg/ Sodium (Chloride) 110 mls @ 110 mls/hr IV.SIG Q12HR [facility] Last Admin: 09/11/18 08:50 Dose: 110 mls/hr Midazolam HCl (Versed Inj) 50 mg in 50 mls @ 5 mls/hr IV.CONT TITRATE PRN; Protocol PRN Reason: Per Protocol Last Titration: 09/11/18 01:01 Dose: 2 mg/hr, 2 mls/hr Phenylephrine HCl 40 mg/ (Sodium Chloride) 500 mls @ 30 mls/hr IV.CONT TITRATE PRN; Protocol PRN Reason: See Protocol Last Titration: 09/08/18 20:18 Dose: 0 mcg/min, 0 mls/hr Fosphenytoin Sodium 130 mgpe/ (Sodium Chloride) 52.6 mls @ 216 mls/hr IV.SIG Q12HR [facility] Insulin Aspart (Novolog Insulin Correctional Sugar Inj) 0 unit SQ Q6HR [facility]; Protocol Last Admin: 09/11/18 05:10 Dose: 2 unit Lorazepam (Ativan Inj) 1 mg IV.PUSH Q1H PRN PRN Reason: Agitation/sedation or Seizure Last Admin: 09/07/18 04:37 Dose: 1 mg Magnesium Oxide (Mag-Ox) 400 mg PO BID [facility] Last Admin: 09/11/18 08:50 Dose: 400 mg Metolazone (Zaroxolyn) 5 mg PO DAILY [facility] Last Admin: 09/11/18 08:50 Dose: 5 mg Metoprolol Tartrate (Lopressor) 50 mg PO BID [facility] Last Admin: 09/11/18 08:51 Dose: 50 mg Miscellaneous Medication () 1 each OROPHARYNG 0000,0400,1200,1600 [facility] Last Admin: 09/11/18 08:53 Dose: Not Given Morphine Sulfate (Morphine Inj) 2 mg IV.PUSH Q2H PRN PRN Reason: PAIN SCALE 6 TO 10 Ondansetron HCl (Zofran Inj) 4 mg IV.PUSH Q6H PRN PRN Reason: NAUSEA OR VOMITING Phenobarbital Sodium (Luminal Inj) 90 mg IV.PUSH Q8HR [facility] Last Admin: 09/11/18 05:09 Dose: 90 mg Pravastatin Sodium (Pravachol) 40 mg PO HS [facility] Last Admin: 09/10/18 20:45 Dose: 40 mg Sodium Chloride (Ns Flush) 2 ml IV.FLUSH BID [facility] Last Admin: 09/11/18 08:54 Dose: 2 ml Sodium Chloride (Ns Flush) 2 ml IV.FLUSH PRN PRN PRN Reason: FLUSH AFTER USING IV ACCESS Last Admin: 09/09/18 21:41 Dose: 2 ml Terbutaline Sulfate (Brethine Inj) 1 mg SQ UNSCH PRN PRN Reason: For Extravasation Vancomycin HCl (Vancomycin Po) 250 mg PO QID [facility] Last Admin: 09/11/18 08:51 Dose: 250 mg Allergies/Adverse Reactions: Allergies Allergy/AdvReac Type Severity Reaction Status Date / Time digitoxin Allergy Severe Hallucinati Verified 08/19/18 15:46 ons Review of Systems unobtainable due to endotracheal tube, unobtainable due to mental condition Physical Exam Vital signs: Vital Signs 09/10/18 10:00 09/10/18 10:05 09/10/18 11:00 Temperature Pulse Rate 100 H 107 H 104 H Respiratory Rate Blood Pressure 122/69 Pulse Oximetry 100 100 100 09/10/18 11:05 09/10/18 12:00 09/10/18 12:05 Temperature 97.1 F L 97.1 F L Pulse Rate 105 H 90 89 Respiratory Rate 21 Blood Pressure 111/64 101/58 L 101/58 L Pulse Oximetry 100 100 100 09/10/18 13:00 09/10/18 13:05 09/10/18 14:00 Temperature Pulse Rate 87 88 90 Respiratory Rate Blood Pressure 106/61 Pulse Oximetry 100 100 09/10/18 16:00 09/10/18 16:06 09/10/18 18:00 Temperature 98.7 F Pulse Rate 92 H 90 Respiratory Rate 21 18 Blood Pressure 99/56 L Pulse Oximetry 100 95 09/10/18 19:36 09/10/18 20:00 09/10/18 22:00 Temperature 98.0 F Pulse Rate 96 H 90 Respiratory Rate 18 12 Blood Pressure 104/59 L Pulse Oximetry 100 100 09/11/18 00:00 09/11/18 01:11 09/11/18 02:00 Temperature 97.9 F Pulse Rate 90 93 H Respiratory Rate 12 12 Blood Pressure 111/62 Pulse Oximetry 100 100 09/11/18 04:00 09/11/18 04:02 09/11/18 06:00 Temperature 98.2 F Pulse Rate 98 H 95 H Respiratory Rate 13 15 Blood Pressure 113/62 Pulse Oximetry 100 100 09/11/18 07:58 Temperature Pulse Rate Respiratory Rate 23 Blood Pressure Pulse Oximetry 100 Intake & Output 09/10/18 09/11/18 09/11/18 18:59 06:59 18:59 Intake Total 2056 / 7 1877 / 1877 Output Total 1300 / 1300 800 / 800 Balance 757 / 757 1077 / 1077 Weight 104.1 kg Intake: IV 1214 / 1214 1110 / 1110 Versed Inj 50 mg In 50 ml @ 5 50 / 50 MG/HR 5 mls/hr IV.CONT TITRATE PRN Rx#:[id number] NS Inj 1,000 ML @ 84 mls/hr IV. 1000 / 1000 1000 / 1000 CONT .[id number] [facility] Rx#:[id number] Cerebyx Inj 200 MGPE In NS Inj 54 / 54 50 ML @ 216 mls/hr IV.SIG Q12HR [facility] Rx#:[id number] Vimpat Inj 100 MG In NS Inj 100 110 / 110 110 / 110 ML @ 110 mls/hr IV.SIG Q12HR [facility] Rx#:[id number] Tube Feeding 543 / 543 567 / 567 Tube Irrigant 300 / 300 200 / 200 Output: Stool 1300 / 1300 800 / 800 Other: # Voids 4 # Incontinent Voids 4 2 Date of Last Bowel Movement 09/10/18 09/11/18 Narrative: GENERAL: in NAD, SKIN: Warm and dry. HEAD: Atraumatic. Normocephalic. EYES: Sluggishly reactive ENT: Intubated NECK: Intubated CARDIOVASCULAR: Regular rate and rhythm. RESPIRATORY: Intubated GASTROINTESTINAL: Abdomen soft, non-tender, nondistended. MUSCULOSKELETAL: No obvious deformities. Bilateral lower extremity edema NEUROLOGICAL: Intubated, sedated no involuntary movements limited exam, OU 2 mm sluggishly reactive no gaze deviation, minimal localization of extremities PSYCHIATRIC: Intubated, calm - Constitutional no acute distress - Routine HEENT Exam Head: Present: normocephalic - Urinary Catheter Management Indwelling Urethral Catheter Cath placed during this visit: yes, but has since been removed by the nurse Reason for continuing: Decision to DC catheter Insertion date: 09/06/18 Insertion time: 23:00 Removal date: 09/08/18 Removal time: 18:21 Straight Cath placed during this visit: yes, but has since been removed by the nurse Reason for continuing: Decision to DC catheter Insertion date: 09/09/18 Insertion time: 02:20 Removal date: 09/10/18 Removal time: 12:00 Objective Laboratory Results - last 24 hr 09/10/18 09/10/18 09/10/18 13:18 18:03 23:14 Sodium Potassium Chloride Carbon Dioxide Anion Gap BUN Creatinine Estimated GFR POC Glucose 161 H 145 H 164 H Random Glucose Calcium Albumin Phenytoin Phenobarbital 09/11/18 09/11/18 02:35 04:43 Sodium 149 H Potassium 4.5 Chloride 114 H Carbon Dioxide 26.6 Anion Gap 8 BUN 60 H Creatinine 1.39 H Estimated GFR 49 L POC Glucose 180 H Random Glucose 158 H Calcium 8.4 L Albumin 2.5 L Phenytoin 18.3 Phenobarbital 9.7 L Review/Management - Diagnosis (1) Localization-related (focal) (partial) symptomatic epilepsy and epileptic syndromes with complex partial seizures, intractable, with status epilepticus Code(s): G40.211 - Localization-related (focal) (partial) symptomatic epilepsy and epileptic syndromes with complex partial seizures, intractable, with status epilepticus Status: Acute Current Visit: Yes (2) Atrial fibrillation Code(s): I48.91 - Unspecified atrial fibrillation Status: Acute Current Visit: Yes (3) Acute encephalopathy Code(s): G93.40 - Encephalopathy, unspecified Status: Acute Current Visit: Yes (4) ICH (intracerebral hemorrhage) Code(s): I61.9 - Nontraumatic intracerebral hemorrhage, unspecified Status: Acute Current Visit: No - Review/Management Plan: Focal left focal status epilepticus secondary to left frontal hematoma IV Cerebyx, phenobarbital, Vimpat No MRI brain secondary to AICD Recommendation d/c versed increase phb dose nsx eval for possible left frontal hematoma evacuation Patient is critically ill. Patient is at risk for embolic ischemic strokes as he is off anticoagulation secondary to the left intracranial hemorrhage (4) ICH (intracerebral hemorrhage) Qualifiers: Intracerebral hemorrhage etiology: traumatic Encounter type: initial encounter Laterality: left Loss of consciousness presence/duration: with LOC of unspecified duration Qualified Code(s): S06.359A - Traumatic hemorrhage of left cerebrum with loss of consciousness of unspecified duration, initial encounter
--- NOTE | 2018-09-11 10:40 | P.CONNS ---
History of Present Illness Service: neurosurgery Consult date: 09/11/18 Requesting Physician: Abisai Bonilla Reason for Consult: Left frontal hemorrhagic mass causing status epilepticus Primary Care Provider: Gary Rivera Chief Complaint: Seizure History of Present Illness: This is a 69-year-old male with a history of relatively recent left frontal intracerebral hemorrhage, brought to the emergency room from home after he was seizing. Called paramedics arrived to find him seizing in the setting they gave him 2 of Versed to break his seizure after they establish IV access patient then in route has another seizure and they gave him 2 more Versed. The patient was a postictal voiding episode and became in respiratory distress needed to be intubated by the paramedics. They intubated him and arrived to emergency department sedated intubated and possibly seizing with contraction of the right hand. He was started on a propofol drip to keep him sedated. He has been admitted to the ICU. He has developed multiplke, recurrent focal seizures. CT and MRI were done. The hemorrhage has been stable. Serial EEG's reported the focus as originated in the left frontal lobe, at the region of hemorrhage. neurosurgical consultation was requested His family history was reviewed and was noncontributory to the current admission Review of Systems unobtainable due to endotracheal tube, unobtainable due to mental condition PMFSH - History History Provided By: Provisioning Specialist / EMT - Medical History Medical History: Medical History (Last Reviewed 09/11/18 @ 16:52 by Orlando Remy MD) MDRO (multiple drug resistant organisms) resistance Onset Date: ~09/08/18 Atrial fibrillation Diabetes Gout - Surgical History Surgical History: Surgical History (Last Reviewed 09/11/18 @ 16:52 by Orlando Remy MD) AICD (automatic cardioverter/defibrillator) present - Tobacco History Second Hand Smoke Exposure: No Smoking Status: Cognitive impairment - Alcohol History How Often Do You Have a Drink Containing Alcohol: Unable to Obtain - Substance Use History Substance History: Unable to Obtain - Travel History Recent Travel in the [facility] Within the Last 8 Weeks: No - Immunization History Tetanus Immunization: Unable to Assess Medications and Allergies Active Medications: Active Medications Acetaminophen (Tylenol) 650 mg PO Q6H PRN PRN Reason: PAIN 1-10 AND/OR FEVER >101F Al Hydroxide/Mg Hydroxide (Milk Of Magnesia Liq) 30 ml PO Q12H PRN PRN Reason: Mild Constipation Albuterol (Duoneb Neb (Prn)) 1 ampul NEB Q2HR NEB PRN PRN Reason: WHEEZING Allopurinol (Zyloprim) 100 mg PO DAILY [facility] [place] Last Admin: 09/11/18 08:50 Dose: 100 mg Bumetanide (Bumex Inj) 1 mg IV.PUSH DAILY [facility] [place] Chlorhexidine Gluconate (Peridex 0.12% Oral Kit) 15 ml OROPHARYNG BID@0800, 2000 [facility] [place] Last Admin: 09/11/18 08:54 Dose: 15 ml Chlorhexidine Gluconate (Chlorhexidine 2% Cloth) 3 pack TOPICAL DAILY@0400 [facility] [place] Stop: 09/12/18 03:59 Last Admin: 09/11/18 04:18 Dose: 3 pack Chlorhexidine Gluconate (Chlorhexidine 2% Cloth) 3 pack TOPICAL DAILY@0400 PRN PRN Reason: Extra cloth needed Stop: 09/12/18 03:59 Dextrose (D50w Vial) 50 ml IV.PUSH UNSCH PRN PRN Reason: PER HYPOGLYCEMIA PROTOCOL Diltiazem HCl (Cardizem Cd 24hr) 120 mg PO DAILY [facility] Last Admin: 09/07/18 12:00 Dose: Not Given Diltiazem HCl (Cardizem) 30 mg PO Q6H [facility] [place] Last Admin: 09/11/18 08:50 Dose: 30 mg Famotidine (Pepcid Pf Inj) 10 mg IV.PUSH Q12HR [facility] [place] Last Admin: 09/11/18 08:51 Dose: 10 mg Glucagon (Glucagon Inj) 1 mg OTHER PRN PRN PRN Reason: for Hypoglycemia Protocol Heparin Sodium (Porcine) (Heparin Inj) 5,000 units SQ Q8HR [facility] [place] Last Admin: 09/11/18 05:09 Dose: 5,000 units Propofol (Diprivan 1000 Mg/100 Ml Inj) 1,000 mg in 100 mls @ 2.449 mls/hr IV.CONT TITRATE PRN; Protocol PRN Reason: Per Protocol Last Titration: 09/08/18 09:02 Dose: 0 mcg/kg/min, 0 mls/hr Sodium Chloride (Ns Inj) 1,000 mls @ 84 mls/hr IV.CONT .[id number] [facility] [place] Last Admin: 09/11/18 01:13 Dose: 84 mls/hr Lacosamide 100 mg/ Sodium (Chloride) 110 mls @ 110 mls/hr IV.SIG Q12HR [facility] Last Admin: 09/11/18 08:50 Dose: 110 mls/hr Midazolam HCl (Versed Inj) 50 mg in 50 mls @ 5 mls/hr IV.CONT TITRATE PRN; Protocol PRN Reason: Per Protocol Last Titration: 09/11/18 01:01 Dose: 2 mg/hr, 2 mls/hr Phenylephrine HCl 40 mg/ (Sodium Chloride) 500 mls @ 30 mls/hr IV.CONT TITRATE PRN; Protocol PRN Reason: See Protocol Last Titration: 09/08/18 20:18 Dose: 0 mcg/min, 0 mls/hr Fosphenytoin Sodium 130 mgpe/ (Sodium Chloride) 52.6 mls @ 216 mls/hr IV.SIG Q12HR [facility] Insulin Aspart (Novolog Insulin Correctional Sugar Inj) 0 unit SQ Q6HR [facility] [place]; Protocol Last Admin: 09/11/18 05:10 Dose: 2 unit Lorazepam (Ativan Inj) 1 mg IV.PUSH Q1H PRN PRN Reason: Agitation/sedation or Seizure Last Admin: 09/07/18 04:37 Dose: 1 mg Magnesium Oxide (Mag-Ox) 400 mg PO BID [facility] Last Admin: 09/11/18 08:50 Dose: 400 mg Metolazone (Zaroxolyn) 5 mg PO DAILY [facility] [place] Last Admin: 09/11/18 08:50 Dose: 5 mg Metoprolol Tartrate (Lopressor) 50 mg PO BID [facility] [place] Last Admin: 09/11/18 08:51 Dose: 50 mg Miscellaneous Medication () 1 each OROPHARYNG 0000,0400,1200,1600 [facility] [place] Last Admin: 09/11/18 08:53 Dose: Not Given Morphine Sulfate (Morphine Inj) 2 mg IV.PUSH Q2H PRN PRN Reason: PAIN SCALE 6 TO 10 Ondansetron HCl (Zofran Inj) 4 mg IV.PUSH Q6H PRN PRN Reason: NAUSEA OR VOMITING Phenobarbital Sodium (Luminal Inj) 120 mg IV.PUSH Q8HR [facility] Pravastatin Sodium (Pravachol) 40 mg PO HS [facility] [place] Last Admin: 09/10/18 20:45 Dose: 40 mg Sodium Chloride (Ns Flush) 2 ml IV.FLUSH BID [facility] [place] Last Admin: 09/11/18 08:54 Dose: 2 ml Sodium Chloride (Ns Flush) 2 ml IV.FLUSH PRN PRN PRN Reason: FLUSH AFTER USING IV ACCESS Last Admin: 09/09/18 21:41 Dose: 2 ml Terbutaline Sulfate (Brethine Inj) 1 mg SQ UNSCH PRN PRN Reason: For Extravasation Vancomycin HCl (Vancomycin Po) 250 mg PO QID [facility] [place] Last Admin: 09/11/18 08:51 Dose: 250 mg Allergies Allergy/AdvReac Type Severity Reaction Status Date / Time digitoxin Allergy Severe Hallucinati Verified 08/19/18 15:46 ons Home Medications Medication Instructions Recorded Confirmed Type diltiazem HCl 1 cap PO DAILY 08/19/18 08/19/18 History magnesium oxide 400 mg PO BID 08/19/18 08/19/18 History metolazone 5 mg PO DAILY 08/19/18 08/19/18 History metoprolol tartrate 50 mg PO BID 08/19/18 08/19/18 History potassium chloride 1 tab PO BID 08/19/18 08/19/18 History simvastatin 20 mg PO QPM 08/19/18 08/19/18 History Exam Vital signs: Vital Signs 09/10/18 11:00 09/10/18 11:05 09/10/18 12:00 Temperature 97.1 F L Pulse Rate 104 H 105 H 90 Respiratory Rate 21 Blood Pressure 111/64 101/58 L Pulse Oximetry 100 100 100 09/10/18 12:05 09/10/18 13:00 09/10/18 13:05 Temperature 97.1 F L Pulse Rate 89 87 88 Respiratory Rate Blood Pressure 101/58 L 106/61 Pulse Oximetry 100 100 100 09/10/18 14:00 09/10/18 16:00 09/10/18 16:06 Temperature 98.7 F Pulse Rate 90 92 H Respiratory Rate 21 18 Blood Pressure 99/56 L Pulse Oximetry 100 95 09/10/18 18:00 09/10/18 19:36 09/10/18 20:00 Temperature 98.0 F Pulse Rate 90 96 H Respiratory Rate 18 12 Blood Pressure 104/59 L Pulse Oximetry 100 100 09/10/18 22:00 09/11/18 00:00 09/11/18 01:11 Temperature 97.9 F Pulse Rate 90 90 Respiratory Rate 12 12 Blood Pressure 111/62 Pulse Oximetry 100 100 09/11/18 02:00 09/11/18 04:00 09/11/18 04:02 Temperature 98.2 F Pulse Rate 93 H 98 H Respiratory Rate 13 15 Blood Pressure 113/62 Pulse Oximetry 100 100 09/11/18 06:00 09/11/18 07:58 09/11/18 08:00 Temperature Pulse Rate 95 H 110 H Respiratory Rate 23 Blood Pressure Pulse Oximetry 100 Intake & Output 09/10/18 09/11/18 09/11/18 18:59 06:59 18:59 Intake Total 7 / 7 1877 / 1877 Output Total 1300 / 1300 800 / 800 Balance 757 / 757 1077 / 1077 Weight 104.1 kg Intake: IV 1214 / 1214 1110 / 1110 Versed Inj 50 mg In 50 ml @ 5 50 / 50 MG/HR 5 mls/hr IV.CONT TITRATE PRN Rx#:[id number] NS Inj 1,000 ML @ 84 mls/hr IV. 1000 / 1000 1000 / 1000 CONT .[id number] [facility] Rx#:[id number] Cerebyx Inj 200 MGPE In NS Inj 54 / 54 50 ML @ 216 mls/hr IV.SIG Q12HR [facility] Rx#:[id number] Vimpat Inj 100 MG In NS Inj 100 110 / 110 110 / 110 ML @ 110 mls/hr IV.SIG Q12HR [facility] Rx#:[id number] Tube Feeding 543 / 543 567 / 567 Tube Irrigant 300 / 300 200 / 200 Output: Stool 1300 / 1300 800 / 800 Other: # Voids 4 # Incontinent Voids 4 2 Date of Last Bowel Movement 09/10/18 09/11/18 09/11/18 Narrative: Mr Moise is intubated and sedated. Minimal reaction to pain Cranial Nerves: Pupils equal, 3 mm round, reactive to light. Eyes appear conjugated. There was no nystagmus, no papilledema. Face musculature appeared symmetrical at rest. Face sensation, olfaction, and hearing cannot be adequately assessed due to the patient's neurological condition. The patient has a corneal reflex. The patient has a gag reflex. The sternocleidomastoid and trapezius were symmetrical. Cervical Spine: The patient's neck is soft, supple, without nuchal rigidity. Motor: His muscle tone and bulk are normal. Minimal reaction to pain Reflexes: Deep tendon reflexes are 2+ and symmetrical in the biceps, triceps, and brachioradialis, bilaterally, in the upper extremities. In the lower extremities, the patellar and ankles are 2+, bilaterally. There is a bilateral plantar flexion response. There is no clonus or other abnormal reflexes noted. Sensory: On examination there there is minimal response to painful stimulus Cerebellar: Examination cannot be adequately assessed due to the patient's neurological condition. Lungs: clear Heart: Regular rhythm and rate Skin: warm and dry Results - Laboratory Findings CBC and BMP: 09/07/18 05:49 09/11/18 02:35 Abnormal lab findings: Abnormal Labs 09/06/18 09/06/18 09/06/18 23:00 23:00 23:00 RBC 3.18 L Hgb 11.2 L Hct 34.4 L MCV 108.0 H MCH 35.0 H RDW 17.6 H Neut % (Auto) 83.6 H Lymph % (Auto) 7.4 L Neut # (Auto) Lymph # (Auto) 0.7 L PT APTT Sodium Potassium 3.3 L Chloride 91 L Carbon Dioxide 32.7 H BUN 51 H Creatinine 2.12 H Estimated GFR 30 L POC Glucose Random Glucose 166 H Calcium Phosphorus Total Bilirubin ALT Troponin I Less than 0.02 L Albumin Stool C.difficile Ag Stool C.difficile Toxin Stl C.difficile DNA Amp Phenobarbital 09/07/18 09/07/18 09/07/18 05:49 05:49 05:49 RBC 2.86 L Hgb 10.0 L Hct 30.7 L MCV 107.4 H MCH 35.1 H RDW Neut % (Auto) 88.9 H Lymph % (Auto) 4.8 L Neut # (Auto) 8.0 H Lymph # (Auto) 0.4 L PT 11.8 H APTT 30.2 H Sodium Potassium 3.4 L Chloride 96 L Carbon Dioxide 33.3 H BUN 51 H Creatinine 1.74 H Estimated GFR 38 L POC Glucose Random Glucose 205 H Calcium 8.3 L Phosphorus Total Bilirubin 1.2 H ALT 9 L Troponin I Albumin 3.2 L Stool C.difficile Ag Stool C.difficile Toxin Stl C.difficile DNA Amp Phenobarbital 09/07/18 09/07/18 09/07/18 05:52 12:45 13:37 RBC Hgb Hct MCV MCH RDW Neut % (Auto) Lymph % (Auto) Neut # (Auto) Lymph # (Auto) PT APTT Sodium Potassium Chloride Carbon Dioxide BUN Creatinine Estimated GFR POC Glucose 229 H 180 H Random Glucose Calcium Phosphorus Total Bilirubin ALT Troponin I Albumin Stool C.difficile Ag Stool C.difficile Toxin Stl C.difficile DNA Amp Phenobarbital Less than 2.1 L 09/07/18 09/08/18 09/08/18 17:34 00:04 03:37 RBC Hgb Hct MCV MCH RDW Neut % (Auto) Lymph % (Auto) Neut # (Auto) Lymph # (Auto) PT APTT Sodium Potassium 3.3 L Chloride Carbon Dioxide 34.5 H BUN 46 H Creatinine 1.49 H Estimated GFR 46 L POC Glucose 187 H 180 H Random Glucose 157 H Calcium 8.3 L Phosphorus Total Bilirubin ALT Troponin I Albumin Stool C.difficile Ag Stool C.difficile Toxin Stl C.difficile DNA Amp Phenobarbital 3.3 L 09/08/18 09/08/18 09/08/18 05:49 11:57 17:15 RBC Hgb Hct MCV MCH RDW Neut % (Auto) Lymph % (Auto) Neut # (Auto) Lymph # (Auto) PT APTT Sodium Potassium Chloride Carbon Dioxide BUN Creatinine Estimated GFR POC Glucose 200 H 149 H Random Glucose Calcium Phosphorus Total Bilirubin ALT Troponin I Albumin Stool C.difficile Ag Positive H Stool C.difficile Toxin Positive H Stl C.difficile DNA Amp Positive H Phenobarbital 09/08/18 09/09/18 09/09/18 17:48 00:40 04:18 RBC Hgb Hct MCV MCH RDW Neut % (Auto) Lymph % (Auto) Neut # (Auto) Lymph # (Auto) PT APTT Sodium Potassium Chloride Carbon Dioxide BUN 48 H Creatinine 1.54 H Estimated GFR 44 L POC Glucose 168 H 174 H Random Glucose 156 H Calcium 8.2 L Phosphorus Total Bilirubin ALT Troponin I Albumin Stool C.difficile Ag Stool C.difficile Toxin Stl C.difficile DNA Amp Phenobarbital 5.9 L 09/09/18 09/09/18 09/09/18 11:55 18:41 21:14 RBC Hgb Hct MCV MCH RDW Neut % (Auto) Lymph % (Auto) Neut # (Auto) Lymph # (Auto) PT APTT Sodium Potassium Chloride Carbon Dioxide BUN Creatinine Estimated GFR POC Glucose 186 H 143 H 351 H Random Glucose Calcium Phosphorus Total Bilirubin ALT Troponin I Albumin Stool C.difficile Ag Stool C.difficile Toxin Stl C.difficile DNA Amp Phenobarbital 09/10/18 09/10/18 09/10/18 00:19 05:10 05:10 RBC Hgb Hct MCV MCH RDW Neut % (Auto) Lymph % (Auto) Neut # (Auto) Lymph # (Auto) PT APTT Sodium 146 H Potassium Chloride 110 H Carbon Dioxide BUN 51 H Creatinine 1.43 H Estimated GFR 48 L POC Glucose 135 H Random Glucose 159 H Calcium 8.4 L Phosphorus 2.4 L Total Bilirubin ALT Troponin I Albumin Stool C.difficile Ag Stool C.difficile Toxin Stl C.difficile DNA Amp Phenobarbital 7.2 L 09/10/18 09/10/18 09/10/18 13:18 18:03 23:14 RBC Hgb Hct MCV MCH RDW Neut % (Auto) Lymph % (Auto) Neut # (Auto) Lymph # (Auto) PT APTT Sodium Potassium Chloride Carbon Dioxide BUN Creatinine Estimated GFR POC Glucose 161 H 145 H 164 H Random Glucose Calcium Phosphorus Total Bilirubin ALT Troponin I Albumin Stool C.difficile Ag Stool C.difficile Toxin Stl C.difficile DNA Amp Phenobarbital 09/11/18 09/11/18 02:35 04:43 RBC Hgb Hct MCV MCH RDW Neut % (Auto) Lymph % (Auto) Neut # (Auto) Lymph # (Auto) PT APTT Sodium 149 H Potassium Chloride 114 H Carbon Dioxide BUN 60 H Creatinine 1.39 H Estimated GFR 49 L POC Glucose 180 H Random Glucose 158 H Calcium 8.4 L Phosphorus Total Bilirubin ALT Troponin I Albumin 2.5 L Stool C.difficile Ag Stool C.difficile Toxin Stl C.difficile DNA Amp Phenobarbital 9.7 L Assessment and Plan - Plan I have reviewed the clinical and radiological findings including Head CT 09/07/18 22:54 CONCLUSION: 1. Decrease in size of left frontal hematoma. . Head MRI 09/08/18 07:10 CONCLUSION: 1. Evolving left frontal mid convexity intra-axial hematoma measuring 2 cm with mild surrounding vasogenic edema but no significant mass effect or midline shift. 2. Otherwise, no intercurrent hemorrhage, acute infarction or hydrocephalus. Chest X-Ray 09/11/18 00:00 CONCLUSION: 1. Persistent left basilar consolidation/effusion with stable atelectatic changes above the right hemidiaphragm. 2. Heart size is prominent but well compensated. 3. Stable position of life-support tubes. Neuro: neuro checks in a serial fashion. Recommend MRI with contrast to rule out underlying mass. The hemorrhagic lesion correlates with the origin of the seizures on multiple EEGs. I have discussed the case extensively with as well as dr Garcia. They recommend consideration to a surgical procedure with resection of the hemorrhagic lesion in an attempt to eradicate the focus causing epilepsy. I have discussed with the patient's both daughters the potential benefits of stereotactic image guided left frontal craniotomy with microsurgical resection of the hemorrhagic mass. Román discussed with them the [id number] details of the surgical procedure, its indications, alternatives, risks, and potential complications. Risks and potential complications include, but are not limited to, infection, blood loss, CSF leak, partial or complete loss of sight in one or both eyes, paresis, paralysis, permanent pain or difficulty swallowing, loss of bowel or bladder function, complications from anesthesia, blood clot, stroke, myocardial infarction, or even . The possibility of nonoperative treatment has been offered. Pulmonary: Respiratory failure -Intubated for an airway protection -Attempt to wean and extubate when seizure-free -Vent bundle aggressive pulmonary toilette, nasotracheal suction, and breathing treatments with nebulizers. Intractable seizures with chronic status -IV Keppra -EEG -Propofol -Neurology consultation noted -Cerebyx added 09/07 -Phenobarbital added -Left frontal focus of intermittent seizures persists 09/08, 09/10, 09/11. May need to erradicate focus for successful seizure control Atrial fibrillation -Metoprolol -Hold anticoagulation due to recent ICH Severe mitral and tricuspid regurgitation. Pulmonary hypertension. Decrease Bumex 1 milligram IV daily, continue metolazone Diabetes mellitus -Insulin sliding scale -Elevated this morning will follow for trend. Dyslipidemia -Pravastatin Arterial Hypertension -Metolazone -Metoprolol C. difficile infection -Patient received vancomycin and Zosyn during hospital admission August 19 and was discharged on Levaquin. -Diarrheal stool noticed day 3, antigen and toxin positive -Oral vancomycin 250 4 times daily started 09/09 Daily PT and OT Renal: Continue to monitor closely urine output, BUN and creatinine Continue Protonix for stress ulcer prophylaxis Continue Etn hose and SCD's for DVT prophylaxis This patient is critically ill having sustained seizures which required intubation and mechanical ventilation for control. We are unable to wean him from the ventilator at this time. Intermittent nonconvulsive seizures were documented yesterday by EEG. Continue to add AED treatment and confirm cessation of seizures before extubation. Remains critically ill and neurologically unstable. Episodic seizure activity persists in the left frontal lobe. Operative eradication of the seizure focus may be necessary at this point.
[2018-09-11] MEDS: Valproate Inj 750 MG in Sodium Chlor 0.9% Inj 100 ML IV.SIG SCH ×2 (15:16→20:35)
[2018-09-11] MEDS ORDERED: Midazolam Inj 5 MG/ML 1 ML Vial IV.PUSH ONE (16:00)
--- NOTE | 2018-09-11 16:31 | XR ---
EXAM DATE: 09/11/2018 4:25 PM EDT AGE/SEX: 77 years / Male INDICATIONS: Elevated airway pressures. CLINICAL DATA: This is the patient's initial encounter. Patient reports that signs and symptoms have been present for 1 day and indicates a pain score of Nonresponsive. MEDICAL/SURGICAL HISTORY: Diabetes mellitus type II. CABG. ICD Placement. COMPARISON: C, CHEST 1V SINGLE AP, 09/06/2018. . FINDINGS: A single AP view of the chest demonstrates the lungs to be symmetrically aerated with persistent left basilar consolidation and possible associated effusion. Stable atelectatic changes above the right h emidiaphragm. Heart size is prominent but appears to be well compensated. Endotracheal tube remains a ppropriately positioned above the jose antonio with a nasogastric tube crossing the GE junction and extendi ng off the inferior aspect of the image. Fracture through the distal aspect of the right clavicle. In tact median sternotomy wires. Left subclavian unipolar pacer is radiographically intact CONCLUSION: 1. Persistent left basilar consolidation/effusion with stable atelectatic changes above the right he midiaphragm. 2. Heart size is prominent but well compensated. 3. Stable position of life-support tubes. Electronically signed by: Felipe Camacho MD 09/11/2018 4:30 PM EDT
--- NOTE | 2018-09-11 19:20 | MG ---
cc: Benjamin Ribeiro MD EEG NUMBER: [id number] FINDINGS: No hyperventilation. Left frontal hematoma. Phenobarbital, Vimpat. Recording shows some diffuse 6 Hz rhythms, there are still some phase sharply contoured waves and occasional sharp waves over the left mid temporal head region occurring every 3 seconds or so. They appear to be not quite as sharp as before, although sometimes do constitute a spike and have some field into the left frontal head region. No prolonged seizure activity seen. IMPRESSION: Still left temporal frontal discharges, may be a little flatter than before, but still some sharps seen there and actually indicating some spikes similar to prior recording. Benjamin Ribeiro MD DJM/ct , 06:14 PM , 06:17 PM
[2018-09-11] MEDS: Midazolam 50 MG/50 ML Inj 50 MG/50 ML BAG IV.CONT PRN (19:57)
[2018-09-11] MEDS ORDERED: Midazolam 50 MG/50 ML Inj 50 MG/50 ML BAG IV.CONT PRN (22:48)
[2018-09-12] MEDS: Oral Hygiene Kit OROPHARYNG SCH ×4 (00:30→18:13)
[2018-09-12] MEDS: Insulin NovoLOG Aspart Correctional Sugar Inj SQ SCH ×4 (00:34→18:19)
[2018-09-12] MEDS: dilTIAZem 30 MG Tablet PO SCH ×4 (02:48→20:21)
[2018-09-12] MEDS: Valproate Inj 750 MG in Sodium Chlor 0.9% Inj 100 ML IV.SIG SCH ×3 (04:00→20:24)
[2018-09-12 05:24] LABS: Calcium 8.5 mg/dL (8.5-10.1); Carbon Dioxide 23.6 meq/L (21.0-32.0); Magnesium 2.3 mg/dL (1.5-2.5); Potassium 4.3 meq/L (3.5-5.1)
[2018-09-12 05:26] LABS: Phosphorus 2.5 mg/dL (2.5-4.9)
[2018-09-12 05:28] LABS: Phenytoin (Dilantin) 12.9 mcg/mL (10.0-20.0)
[2018-09-12] MEDS: PHENobarbital Inj 130 MG/ML Vial IV.PUSH SCH ×3 (05:55→22:52)
[2018-09-12] MEDS: Heparin - SQ 10,000 UNITS/ML Vial SQ SCH ×3 (05:55→22:53)
[2018-09-12] MEDS: Magnesium Oxide 400 MG Tablet PO SCH ×2 (08:04→20:43)
[2018-09-12] MEDS: metOLazone 5 MG Tablet PO SCH (08:04)
[2018-09-12] MEDS: Allopurinol 100 MG Tablet PO SCH (08:04)
[2018-09-12] MEDS: Chlorhexidine 0.12% Oral Kit 15 ML UDC OROPHARYNG SCH ×2 (08:05→20:20)
[2018-09-12] MEDS: Famotidine PF Inj 20 MG/2 ML Vial IV.PUSH SCH ×2 (08:09→20:43)
--- NOTE | 2018-09-12 08:38 | P.PNNEU ---
Subjective Subjective Comments: No acute events. No seizure Active Medications: Active Medications Acetaminophen (Tylenol) 650 mg PO Q6H PRN PRN Reason: PAIN 1-10 AND/OR FEVER >101F Last Admin: 09/11/18 19:57 Dose: 650 mg Al Hydroxide/Mg Hydroxide (Milk Of Magnbreanne Liq) 30 ml PO Q12H PRN PRN Reason: Mild Constipation Albuterol (Duoneb Neb (Prn)) 1 ampul NEB Q2HR NEB PRN PRN Reason: WHEEZING Last Admin: 09/11/18 20:59 Dose: 1 ampul Allopurinol (Zyloprim) 100 mg PO DAILY [facility] Last Admin: 09/12/18 08:04 Dose: 100 mg Bumetanide (Bumex Inj) 1 mg IV.PUSH DAILY [facility] Chlorhexidine Gluconate (Peridex 0.12% Oral Kit) 15 ml OROPHARYNG BID@0800, 2000 [facility] Last Admin: 09/12/18 08:05 Dose: 15 ml Dextrose (D50w Vial) 50 ml IV.PUSH UNSCH PRN PRN Reason: PER HYPOGLYCEMIA PROTOCOL Diltiazem HCl (Cardizem Cd 24hr) 120 mg PO DAILY [facility] Last Admin: 09/07/18 12:00 Dose: Not Given Diltiazem HCl (Cardizem) 30 mg PO Q6H [facility] Last Admin: 09/12/18 08:04 Dose: 30 mg Famotidine (Pepcid Pf Inj) 10 mg IV.PUSH Q12HR [facility] Last Admin: 09/12/18 08:09 Dose: 10 mg Glucagon (Glucagon Inj) 1 mg OTHER PRN PRN PRN Reason: for Hypoglycemia Protocol Heparin Sodium (Porcine) (Heparin Inj) 5,000 units SQ Q8HR [facility] Last Admin: 09/12/18 05:55 Dose: 5,000 units Propofol (Diprivan 1000 Mg/100 Ml Inj) 1,000 mg in 100 mls @ 2.449 mls/hr IV.CONT TITRATE PRN; Protocol PRN Reason: Per Protocol Last Titration: 09/08/18 09:02 Dose: 0 mcg/kg/min, 0 mls/hr Sodium Chloride (Ns Inj) 1,000 mls @ 84 mls/hr IV.CONT .[id number] [facility] Last Infusion: 09/11/18 23:48 Dose: 84 mls/hr Lacosamide 100 mg/ Sodium (Chloride) 110 mls @ 110 mls/hr IV.SIG Q12HR [facility] Last Infusion: 09/11/18 22:55 Dose: Infused Midazolam HCl (Versed Inj) 50 mg in 50 mls @ 5 mls/hr IV.CONT TITRATE PRN; Protocol PRN Reason: Per Protocol Last Titration: 09/11/18 23:15 Dose: 2 mg/hr, 2 mls/hr Phenylephrine HCl 40 mg/ (Sodium Chloride) 500 mls @ 30 mls/hr IV.CONT TITRATE PRN; Protocol PRN Reason: See Protocol Last Titration: 09/08/18 20:18 Dose: 0 mcg/min, 0 mls/hr Fosphenytoin Sodium 130 mgpe/ (Sodium Chloride) 52.6 mls @ 216 mls/hr IV.SIG Q12HR [facility] Valproate Sodium 750 mg/ (Sodium Chloride) 107.5 mls @ 105 mls/hr IV.SIG Q8H [facility] Last Infusion: 09/12/18 05:22 Dose: Infused Cefazolin Sodium/Dextrose (Ancef 2 Gm Premix Inj) 2 gm in 50 mls @ 100 mls/hr IV.SIG POTASH FLAKER PRN PRN Reason: PROCEDURE ANESTHESIA Stop: 09/16/18 16:57 Midazolam HCl (Versed Inj) 50 mg in 50 mls @ 2 mls/hr IV.CONT TITRATE PRN; Protocol PRN Reason: Per Protocol Insulin Aspart (Novolog Insulin Correctional Sugar Inj) 0 unit SQ Q6HR [facility]; Protocol Last Admin: 09/12/18 06:11 Dose: 2 unit Lorazepam (Ativan Inj) 1 mg IV.PUSH Q1H PRN PRN Reason: Agitation/sedation or Seizure Last Admin: 09/07/18 04:37 Dose: 1 mg Magnesium Oxide (Mag-Ox) 400 mg PO BID [facility] Last Admin: 09/12/18 08:04 Dose: 400 mg Metolazone (Zaroxolyn) 5 mg PO DAILY [facility] Last Admin: 09/12/18 08:04 Dose: 5 mg Metoprolol Tartrate (Lopressor) 50 mg PO BID [facility] Last Admin: 09/11/18 21:46 Dose: 50 mg Miscellaneous Medication () 1 each OROPHARYNG 0000,0400,1200,1600 [facility] Last Admin: 09/12/18 04:00 Dose: 1 each Morphine Sulfate (Morphine Inj) 2 mg IV.PUSH Q2H PRN PRN Reason: PAIN SCALE 6 TO 10 Ondansetron HCl (Zofran Inj) 4 mg IV.PUSH Q6H PRN PRN Reason: NAUSEA OR VOMITING Phenobarbital Sodium (Luminal Inj) 120 mg IV.PUSH Q8HR [facility] Last Admin: 09/12/18 05:55 Dose: 120 mg Pravastatin Sodium (Pravachol) 40 mg PO HS [facility] Last Admin: 09/11/18 21:46 Dose: 40 mg Sodium Chloride (Ns Flush) 2 ml IV.FLUSH BID [facility] Last Admin: 09/12/18 08:05 Dose: 2 ml Sodium Chloride (Ns Flush) 2 ml IV.FLUSH PRN PRN PRN Reason: FLUSH AFTER USING IV ACCESS Last Admin: 09/09/18 21:41 Dose: 2 ml Terbutaline Sulfate (Brethine Inj) 1 mg SQ UNSCH PRN PRN Reason: For Extravasation Vancomycin HCl (Vancomycin Po) 250 mg PO QID [facility] Last Admin: 09/12/18 08:03 Dose: 250 mg Allergies/Adverse Reactions: Allergies Allergy/AdvReac Type Severity Reaction Status Date / Time digitoxin Allergy Severe Hallucinati Verified 08/19/18 15:46 ons Review of Systems unobtainable due to endotracheal tube, unobtainable due to mental status Physical Exam Vital signs: Vital Signs 09/11/18 10:00 09/11/18 11:11 09/11/18 12:00 Temperature 98.5 F Pulse Rate 110 H 106 H Respiratory Rate 21 22 Blood Pressure 123/63 Pulse Oximetry 98 100 09/11/18 14:00 09/11/18 16:00 09/11/18 16:50 Temperature 98.7 F Pulse Rate 112 H 116 H Respiratory Rate 17 17 Blood Pressure 115/60 Pulse Oximetry 99 99 09/11/18 18:00 09/11/18 20:00 09/11/18 20:52 Temperature 101.4 F H Pulse Rate 106 H 110 H Respiratory Rate 17 16 Blood Pressure 115/62 Pulse Oximetry 99 99 09/11/18 21:00 09/11/18 22:00 09/12/18 00:00 Temperature 99.5 F Pulse Rate 99 H 100 H 94 H Respiratory Rate 16 16 Blood Pressure 104/55 L Pulse Oximetry 99 09/12/18 00:22 09/12/18 02:00 09/12/18 03:36 Temperature Pulse Rate 88 Respiratory Rate 16 15 Blood Pressure Pulse Oximetry 98 99 09/12/18 04:00 09/12/18 06:00 09/12/18 07:32 Temperature 98.2 F Pulse Rate 96 H 95 H Respiratory Rate 16 13 Blood Pressure 102/55 L Pulse Oximetry 99 100 Intake & Output 09/11/18 09/12/18 09/12/18 18:59 06:59 18:59 Intake Total 1790.5 / 1790.5 685.0 / 685.0 Output Total 400 / 400 600 / 600 Balance 1390.5 / 1390.5 85.0 / 85.0 Weight 103.8 kg Intake: IV 1217.5 / 1217.5 325.0 / 325.0 NS Inj 1,000 ML @ 84 mls/hr IV. 1000 / 1000 CONT .[id number] [facility] Rx#:[id number] Vimpat Inj 100 MG In NS Inj 100 110 / 110 110 / 110 ML @ 110 mls/hr IV.SIG Q12HR [facility] Rx#:[id number] Depacon Inj 750 MG In NS Inj 107.5 / 107.5 215.0 / 215.0 100 ML @ 105 mls/hr IV.SIG Q8H [facility] Rx#:[id number] Tube Feeding 523 / 523 210 / 210 Tube Irrigant 50 / 50 150 / 150 Output: Stool 400 / 400 600 / 600 Other: # Voids 3 # Incontinent Voids 4 3 Date of Last Bowel Movement 09/11/18 09/12/18 Narrative: GENERAL: in NAD, SKIN: Warm and dry. HEAD: Atraumatic. Normocephalic. EYES: Sluggishly reactive ENT: Intubated NECK: Intubated CARDIOVASCULAR: Regular rate and rhythm. RESPIRATORY: Intubated GASTROINTESTINAL: Abdomen soft, non-tender, nondistended. MUSCULOSKELETAL: No obvious deformities. Bilateral lower extremity edema NEUROLOGICAL: Intubated, sedated no involuntary movements limited exam, OU 2 mm sluggishly reactive no gaze deviation, minimal localization of extremities PSYCHIATRIC: Intubated, calm - Constitutional no acute distress - Routine HEENT Exam Head: Present: normocephalic - Urinary Catheter Management Indwelling Urethral Catheter Cath placed during this visit: yes, but has since been removed by the nurse Reason for continuing: Decision to DC catheter Insertion date: 09/06/18 Insertion time: 23:00 Removal date: 09/08/18 Removal time: 18:21 Straight Cath placed during this visit: yes, but has since been removed by the nurse Reason for continuing: Decision to DC catheter Insertion date: 09/09/18 Insertion time: 02:20 Removal date: 09/10/18 Removal time: 12:00 Objective Laboratory Results - last 24 hr 09/12/18 09/12/18 09/12/18 00:24 04:11 06:03 Sodium 147 H Potassium 4.3 Chloride 116 H Carbon Dioxide 23.6 Anion Gap 7 BUN 66 H Creatinine 1.57 H Estimated GFR 43 L POC Glucose 224 H 173 H Random Glucose 156 H Calcium 8.5 Phosphorus 2.5 Magnesium 2.3 Phenytoin 12.9 Phenobarbital 12.9 L Review/Management - Diagnosis (1) Localization-related (focal) (partial) symptomatic epilepsy and epileptic syndromes with complex partial seizures, intractable, with status epilepticus Code(s): G40.211 - Localization-related (focal) (partial) symptomatic epilepsy and epileptic syndromes with complex partial seizures, intractable, with status epilepticus Status: Acute Current Visit: Yes (2) Atrial fibrillation Code(s): I48.91 - Unspecified atrial fibrillation Status: Acute Current Visit: Yes (3) Acute encephalopathy Code(s): G93.40 - Encephalopathy, unspecified Status: Acute Current Visit: Yes (4) ICH (intracerebral hemorrhage) Code(s): I61.9 - Nontraumatic intracerebral hemorrhage, unspecified Status: Acute Current Visit: No - Review/Management Plan: Focal left focal status epilepticus secondary to left frontal hematoma IV Cerebyx, phenobarbital, Vimpat No MRI brain secondary to AICD Recommendation Appreciate neurosurgical evaluation; plans for left frontal crani Follow-up EEG tomorrow Follow-up seizure med levels Patient is critically ill. Patient is at risk for embolic ischemic strokes as he is off anticoagulation secondary to the left intracranial hemorrhage (4) ICH (intracerebral hemorrhage) Qualifiers: Intracerebral hemorrhage etiology: traumatic Encounter type: initial encounter Laterality: left Loss of consciousness presence/duration: with LOC of unspecified duration Qualified Code(s): S06.359A - Traumatic hemorrhage of left cerebrum with loss of consciousness of unspecified duration, initial encounter
[2018-09-12] MEDS ORDERED: Gadobutrol PF 10 MMOL/10 ML Vial (for RAD) IV.SIG ONE (09:15)
--- NOTE | 2018-09-12 09:54 | MR ---
EXAM DATE: 09/12/2018 9:32 AM EDT AGE/SEX: 77 years / Male INDICATIONS: Mass. CLINICAL DATA: This is the patient's initial encounter. Patient reports that signs and symptoms have been present for 3 days and indicates a pain score of 0/10. MEDICAL/SURGICAL HISTORY: Diabetes mellitus type II. Seizures. Pacemaker. CABG. COMPARISON: [facility], CT HEAD W/O CONTRAST, 08/19/2018. . TECHNIQUE: Multiplanar, multisequence examination of the brain was performed with 9 ml Gadavist (gado butrol) contrast as a single exam dose. FINDINGS: There is a 2 cm hemorrhagic mass in the left frontal lobe with surrounding edema and some localized s ulcal effacement. No other enhancing mass is identified. No evidence for recent infarction. There is no hydrocephalus. Chronic white matter ischemic changes are present. No sellar mass. CONCLUSION: 1. 2 cm hemorrhagic mass in the left frontal lobe with surrounding edema and minimal localized mass effect. No evidence for recent infarction. No other enhancing lesions within the brain. Electronically signed by: Milton Manriquez MD 09/12/2018 9:53 AM EDT
[2018-09-12] MEDS: Lacosamide Inj 100 MG in Sodium Chlor 0.9% Inj 100 ML IV.SIG SCH ×2 (09:55→21:56)
[2018-09-12] MEDS: Metoprolol Tartrate 50 MG Tablet PO SCH ×2 (09:56→20:43)
[2018-09-12 10:52] LABS: Hematocrit 29.5 % (39.0-51.0); Hemoglobin 9.4 gm/dL (13.0-17.0); Mean Corpuscular HGB Conc 31.9 % (32.0-36.0); Mean Corpuscular Hemoglobin 34.7 pg (27.0-34.0); Mean Corpuscular Volume 108.9 fL (80.0-100.0); Mean Platelet Volume 9.1 fL (7.0-11.0); Platelet Count 161 th/mm3 (150-450); Red Blood Count 2.71 mil/mm3 (4.50-5.90); White Blood Count 8.2 th/mm3 (4.0-11.0)
[2018-09-12] MEDS: Sod Chloride 0.9% Inj 1,000 ML IV.CONT SCH ×2 (11:42→23:14)
--- NOTE | 2018-09-12 14:08 | P.PNCC ---
Subjective Subjective Remarks/Hospital Course: 69-year-old male with a history of recent ICH, and seizure disorder presents from home after he was seizing. Called paramedics arrived to find him seizing in the setting they gave him 2 of Versed to break his seizure after they establish IV access patient then in route has another seizure and they gave him 2 more Versed. The patient was a postictal voiding episode and became in respiratory distress needed to be intubated by the paramedics. They intubated him and arrived to emergency department sedated intubated and possibly seizing with contraction of the right hand. He was started on a propofol drip to keep him sedated as well as seizure-free and he has been admitted to the ICU. 09/07: No more seizure activity. Weaned to propofol 5 mics per kilogram per minute. AED restarted. CAT scan shows diminished size of left frontal lobe hematoma compared to prior study. 09/08: No more obvious seizure activity. Patient withdraws limbs aside from left foot. He grimaces to noxious stimulation. Breathes spontaneously over the ventilator. We need to confirm that he is indeed stopped seizing. Cerebyx added to Keppra. 09/09: Focus of left frontal intermittent seizure activity persists on 09/08. Still on Versed drip infusion and mechanical ventilation. Neurology service continues to adjust AED regimen. MRI yesterday without other significant injury aside from the known left frontal hematoma. 09/10: Focal area of intermittent seizure frontal lobe persisted yesterday on EEG. AED doses being adjusted. Urine output marginal, will reinstitute loop diuretic along with metolazone. Underlying cardiac function impaired at baseline with severe mitral and tricuspid regurgitation along with pulmonary hypertension as expected. Most recent echo is about a month ago. 09/11: Continued left fronto temporal seizure activity despite 3 AEDs. Juxtaposition of this 2 cm maturing left frontal lobe hematoma to the seizure activity is probably not coincidental. I have discussed with the family the concept of excising the mature hematoma in an attempt to attenuate the seizure activity. 09/12: Patient required Vidaza Lyle yesterday for elevated airway pressures possibly related to seizure activity. No problems after Versed bolus and restarted. Plan is for resection of the seizure substrate in the left frontal lobe today. Objective Vital Signs / I&O: Vital Signs 09/11/18 16:00 09/11/18 16:50 09/11/18 18:00 Temperature 98.7 F Pulse Rate 116 H 106 H Respiratory Rate 17 17 Blood Pressure 115/60 Pulse Oximetry 99 99 09/11/18 20:00 09/11/18 20:52 09/11/18 21:00 Temperature 101.4 F H Pulse Rate 110 H 99 H Respiratory Rate 17 16 16 Blood Pressure 115/62 Pulse Oximetry 99 99 09/11/18 22:00 09/12/18 00:00 09/12/18 00:22 Temperature 99.5 F Pulse Rate 100 H 94 H Respiratory Rate 16 16 Blood Pressure 104/55 L Pulse Oximetry 99 98 09/12/18 02:00 09/12/18 03:36 09/12/18 04:00 Temperature 98.2 F Pulse Rate 88 96 H Respiratory Rate 15 16 Blood Pressure 102/55 L Pulse Oximetry 99 99 09/12/18 06:00 09/12/18 07:32 09/12/18 08:00 Temperature Pulse Rate 95 H 92 H Respiratory Rate 13 Blood Pressure Pulse Oximetry 100 09/12/18 09:42 09/12/18 10:00 09/12/18 11:15 Temperature Pulse Rate 80 Respiratory Rate 12 Blood Pressure Pulse Oximetry 100 100 09/12/18 12:00 Temperature Pulse Rate 99 H Respiratory Rate Blood Pressure Pulse Oximetry Intake & Output 09/11/18 09/12/18 09/12/18 18:59 06:59 18:59 Intake Total 1790.5 / 1790.5 685.0 / 685.0 Output Total 400 / 400 600 / 600 Balance 1390.5 / 1390.5 85.0 / 85.0 Weight 103.8 kg Intake: IV 1217.5 / 1217.5 325.0 / 325.0 NS Inj 1,000 ML @ 84 mls/hr IV. 1000 / 1000 CONT .[id number] [facility] Rx#:[id number] Vimpat Inj 100 MG In NS Inj 100 110 / 110 110 / 110 ML @ 110 mls/hr IV.SIG Q12HR [facility] Rx#:[id number] Depacon Inj 750 MG In NS Inj 107.5 / 107.5 215.0 / 215.0 100 ML @ 105 mls/hr IV.SIG Q8H [facility] Rx#:[id number] Tube Feeding 523 / 523 210 / 210 Tube Irrigant 50 / 50 150 / 150 Output: Stool 400 / 400 600 / 600 Other: # Voids 3 # Incontinent Voids 4 3 Date of Last Bowel Movement 09/11/18 09/12/18 09/11/18 Result Diagrams: 09/12/18 10:10 09/12/18 04:11 Objective Remarks: - Constitutional Calm, on mechanical ventilation - Routine HEENT Exam Head: Present: atraumatic Eye: Present: PERRL ENT: Present: mucous membranes moist - Routine Neck Exam Orotracheal intubation. Absent: JVD, carotid bruit - Routine Chest/Breast/Axilla Exam Chest wall: Normal excursion. Absent: tenderness - Routine Respiratory Exam Present: patient mechanically ventilated. Breath sounds clear. Absent: rhonchi , stridor, wheezes, crackles - Routine Cardiovascular Exam Present: S1, S2, irregularly irregular rhythm, no JVD. - Routine Abdominal Exam Present: soft, normoactive bowel sounds, no guarding - Routine Extremities Exam Warm, well-perfused. Absent: cyanosis, clubbing, edema - Routine Skin Exam Present: intact. Absent: cyanosis, erythema - Routine Neurological Exam Present: altered mental status, withdraws all extremities grossly. Heavily sedated now for seizure control. Breathes over ventilator rate. Assessment and Plan - Assessment and Plan Plan: Respiratory failure -Intubated for an airway protection -Attempt to wean and extubate when seizure-free -Vent bundle -DuoNeb's as needed -Start spontaneous breathing trials now that Versed has been discontinued -Elevated airway pressures probably associated with seizures Versed restarted. Seizure -IV Keppra -EEG -Propofol -Neurology consultation -Cerebyx added 09/07 -Phenobarbital added -Left frontal focus of intermittent seizures persists 09/08, 09/10, 09/11 -Plan resection of seizure substrate and left frontal lobe. Left frontal intraparenchymal ICH -Old from beginning of August -Decreasing in size -Continue seizure prophylaxis and treatment -No intervention indicated -Repeat head CT with decreased dimensions of hematoma compared to previous study. Atrial fibrillation -Metoprolol -Hold anticoagulation due to recent ICH Severe mitral and tricuspid regurgitation. Pulmonary hypertension. -Decrease Bumex 1 milligram IV daily, continue metolazone Diabetes -Insulin sliding scale -Elevated this morning will follow for trend. Dyslipidemia -Pravastatin Hypertension -Metolazone -Metoprolol C. difficile infection -Patient received vancomycin and Zosyn during hospital admission August 19 and was discharged on Levaquin. -Diarrheal stool noticed day 3, antigen and toxin positive -Oral vancomycin 250 4 times daily started 09/09 DVT GI prophylaxis -Teds SCDs -Subcu heparin -Pepcid Overall impression: This gentleman is critically ill having sustained seizures which required intubation and mechanical ventilation for control. We are unable to wean him from the ventilator at this time. Intermittent nonconvulsive seizures were documented yesterday by EEG. Continue to add AED treatment and confirm cessation of seizures before extubation. Remains critically ill and neurologically unstable. Episodic seizure activity persists in the left frontal lobe. Operative eradication of the seizure focus is necessary at this point. Critical care 38 minutes aside from procedures.
[2018-09-12] MEDS ORDERED: Thrombin Topical Soln 5,000 UNIT Vial TOPICAL ONE (14:47)
[2018-09-12] MEDS ORDERED: Lidocaine 1%/Epinephrine 1:100,000 Inj 30 ML Vial ONE (14:47)
[2018-09-12] MEDS ORDERED: Gelatin Size 100 Topical Foam ONE (14:47)
[2018-09-12] MEDS ORDERED: ceFAZolin 2 GM Premix Inj 2 GM/50 ML PIGGYBACK IV.SIG ONE (14:48)
[2018-09-12] MEDS ORDERED: ceFAZolin 2 GM Premix Inj 2 GM/50 ML PIGGYBACK IV.SIG PRN (16:58)
[2018-09-12] MEDS ORDERED: fentaNYL Citrate Inj 100 MCG/2 ML Ampul ONE (18:04)
[2018-09-12] MEDS ORDERED: Morphine Sulfate Inj 2 MG/ML Vial IV.PUSH PRN (18:11)
[2018-09-12] MEDS ORDERED: Bisacodyl 10 MG Supp RECTAL PRN (18:11)
--- NOTE | 2018-09-12 18:30 | P.OP ---
Preoperative Diagnosis: Left frontal hemorrhagic lesion causing status epilepticus Postoperative Diagnosis: Left frontal hemorrhagic lesion causing status epilepticus Date of procedure: 09/12/18 Procedure: Stereotactic image guided left frontal craniotomy with microsurgical resection of hemorrhagic mass Anesthesia: IVPUL Surgeon: Orlando Remy MD Pathology: none sent Operation and Findings: INDICATIONS FOR THE PROCEDURE The patient is a 77-year-old male who presented with multiple recurrent seizures. He was found to have a left frontal lobe hemorrhagic mass with status epilepticus originating on this regions, which failed to respond to multiple antiepileptic medications. A Sterotactic microsurgical resection was indicated. I have discussed with his family the [id number] details of the procedure, its indications, alternatives, risks and potential complications with the patient including but not limited to the risk of infection, hemorrhage, paralysis, stroke, heart attack, even vegetative state or even the possibility of . They understoof. All their questions were answered. No guarantees were given. They voiced requesting the procedure and provided informed consent. She has been offered the alternative of not having aggressive management. DETAILS OF THE SURGICAL PROCEDURE Prior to the surgery the patient underwent MRI of the brain according to the stereotactic protocol. The information was transferred to the workstation located in the operative suite. Preoperative registration was performed. The patient was then transferred to the operating room. After induction of general anesthesia, endotracheal intubation was done. A Fields catheter, bilateral SANDRINE hose, sequential compression devices were placed and kept throughout the procedure. The patient was positioned supine on a 30/80 table over gel mattress with her head in rigid fixation using the [employer] import coordination and production head. All pressure points were carefully padded with egg crate mattress. The eyes were tapped shut after ointment was applied by the anesthesiologist to prevent corneal abrasion. A Jw hugger was placed over the exposed lower body to maintain control of the core body temperature. The electrophysiological team placed the needles and electrodes in their proper location and baseline SSEP's evoked potentials were registered. The rigid reference body was attached to the import coordination and production head and intraoperative registration was performed with a laser. The left frontal area was shaved, prepped and draped in the usual sterile fashion. A standard curvilinear pterional incision was outlined on the scalp and infiltrated with 1% lidocaine with epinephrine. The skin incision was made with a #10 blade down to the level of the periosteum in the frontoparietal region and to the temporalis fascia in the temporal region. Isabela clips were applied to the scalp. Using a Bovie, the temporalis fascia and muscle were incised and a subperiosteal dissection was performed reflecting the scalp flap anteriorly. The scalp was covered with a moist sponge and held in position using fish hooks. The TPS Seamus was brought to the field and a bur hole was made in the fontotemporal region using the craniotome attachment. Then, using the footplate attachment, a frontal craniotomy flap was elevated. The dura was bulging, with mass effect due to the underlying tumor. The tumor was identified with the brainlab, and the dura was opened with a 15 blade and metzembaun sissors and retracted with 4-0 Neurolon sutures attached to the fascia. At this point of the procedure the operative microscope was draped in the usual sterile fashion and brought to the field. The rest of the surgical procedure was performed using microdissection technique with the exception of the closure. Under the operative microscope a small corticotomy was performed on the frontal tip. just over the mass and the mass was approached using microsurgical dissection technique, with the micro-bipolar forceps, microscissors, micro- suction, and gentle irrigation. The specimen was sent to the lab for histological analysis. The frozen section results could not be obtained during the procedure. Specimen was also sent for final hystopathological annalysis. A gross total resection of the mass was achieved. Appropriate hemostasis was then secured using the bipolar green building design specialist. Then the incision was irrigated with saline solution. The dural edges were tacked to the bone. The craniotomy flap was then repositioned and secured in place using Striker plates and screws. A 7 millimeter Freeman-Hollis drain was then left in the subdural space and externalized through a separate stab incision. The incision was then closed in layers. 0 Vicryl in interrupted sutures were used to close the temporalis fascia. The galea was closed with interrupted 3- 0 Vicryl. [place] were applied to the skin. The drain was secured with a 3-0 nylon. At the end of the procedure, the sponge, needle and instrument counts were all correct. Estimated blood loss was less than 50 cc. No blood transfusion was given. No intraoperative complications occurred. The patient received prophylactic antibiotics. The patient was then transferred to the recovery room in stable condition. COMPLICATIONS None
[2018-09-12] MEDS: Senna/Docusate Sodium 8.6/50 MG Tablet PO SCH (20:21)
[2018-09-12] MEDS: Fosphenytoin Inj 130 MGPE in Sodium Chlor 0.9% Inj 50 ML IV.SIG SCH (21:34)
[2018-09-13] MEDS: Oral Hygiene Kit OROPHARYNG SCH ×4 (00:23→17:00)
[2018-09-13] MEDS: Insulin NovoLOG Aspart Correctional Sugar Inj SQ SCH ×4 (00:23→18:29)
[2018-09-13] MEDS: dilTIAZem 30 MG Tablet PO SCH ×4 (02:55→20:35)
[2018-09-13] MEDS: Valproate Inj 750 MG in Sodium Chlor 0.9% Inj 100 ML IV.SIG SCH ×3 (04:03→20:35)
[2018-09-13] MEDS: Heparin - SQ 10,000 UNITS/ML Vial SQ SCH ×3 (05:35→21:52)
[2018-09-13 05:48] LABS: Hematocrit 27.8 % (39.0-51.0); Hemoglobin 9.1 gm/dL (13.0-17.0); Mean Corpuscular HGB Conc 32.7 % (32.0-36.0); Mean Corpuscular Hemoglobin 35.2 pg (27.0-34.0); Mean Corpuscular Volume 107.5 fL (80.0-100.0); Mean Platelet Volume 9.2 fL (7.0-11.0); Platelet Count 157 th/mm3 (150-450); Red Blood Count 2.59 mil/mm3 (4.50-5.90); Red Cell Distribution Width 16.8 % (11.6-17.2); White Blood Count 7.2 th/mm3 (4.0-11.0)
[2018-09-13 06:10] LABS: Calcium 8.5 mg/dL (8.5-10.1); Carbon Dioxide 25.7 meq/L (21.0-32.0); Magnesium 2.4 mg/dL (1.5-2.5); Phosphorus 4.1 mg/dL (2.5-4.9); Potassium 4.4 meq/L (3.5-5.1)
[2018-09-13] MEDS: PHENobarbital Inj 130 MG/ML Vial IV.PUSH SCH ×3 (06:23→21:52)
[2018-09-13 07:30] LABS: Lymphocytes 3 % (9-44); Metamyelocytes 1 % (0-1); Monocytes 3 % (0-8)
[2018-09-13 07:32] LABS: Platelet Estimate Normal (Normal); Platelet Morphology Normal (Normal)
--- NOTE | 2018-09-13 07:35 | P.PNCC ---
Subjective Subjective Remarks/Hospital Course: 69-year-old male with a history of recent ICH, and seizure disorder presents from home after he was seizing. Called paramedics arrived to find him seizing in the setting they gave him 2 of Versed to break his seizure after they establish IV access patient then in route has another seizure and they gave him 2 more Versed. The patient was a postictal voiding episode and became in respiratory distress needed to be intubated by the paramedics. They intubated him and arrived to emergency department sedated intubated and possibly seizing with contraction of the right hand. He was started on a propofol drip to keep him sedated as well as seizure-free and he has been admitted to the ICU. 09/07: No more seizure activity. Weaned to propofol 5 mics per kilogram per minute. AED restarted. CAT scan shows diminished size of left frontal lobe hematoma compared to prior study. 09/08: No more obvious seizure activity. Patient withdraws limbs aside from left foot. He grimaces to noxious stimulation. Breathes spontaneously over the ventilator. We need to confirm that he is indeed stopped seizing. Cerebyx added to Keppra. 09/09: Focus of left frontal intermittent seizure activity persists on 09/08. Still on Versed drip infusion and mechanical ventilation. Neurology service continues to adjust AED regimen. MRI yesterday without other significant injury aside from the known left frontal hematoma. 09/10: Focal area of intermittent seizure frontal lobe persisted yesterday on EEG. AED doses being adjusted. Urine output marginal, will reinstitute loop diuretic along with metolazone. Underlying cardiac function impaired at baseline with severe mitral and tricuspid regurgitation along with pulmonary hypertension as expected. Most recent echo is about a month ago. 09/11: Continued left fronto temporal seizure activity despite 3 AEDs. Juxtaposition of this 2 cm maturing left frontal lobe hematoma to the seizure activity is probably not coincidental. I have discussed with the family the concept of excising the mature hematoma in an attempt to attenuate the seizure activity. 09/12: Patient required Vidaza Lyle yesterday for elevated airway pressures possibly related to seizure activity. No problems after Versed bolus and restarted. Plan is for resection of the seizure substrate in the left frontal lobe today. 09/13: Status post resection of left frontal lobe hemorrhagic mass yesterday. Return from OR on mechanical ventilation. Stable hemodynamics. Patient remains neurologically unstable with refractory seizures for which he underwent mass resection. Objective Vital Signs / I&O: Vital Signs 09/12/18 07:32 09/12/18 08:00 09/12/18 09:42 Temperature 97.7 F Pulse Rate 92 H Respiratory Rate 13 15 Blood Pressure 99/58 L Pulse Oximetry 100 100 100 09/12/18 10:00 09/12/18 11:15 09/12/18 12:00 Temperature 98.7 F Pulse Rate 80 99 H Respiratory Rate 12 12 Blood Pressure 106/65 Pulse Oximetry 100 100 09/12/18 14:00 09/12/18 14:50 09/12/18 18:00 Temperature Pulse Rate 90 102 H Respiratory Rate Blood Pressure Pulse Oximetry 100 09/12/18 19:00 09/12/18 19:53 09/12/18 20:00 Temperature 98.7 F 98.7 F Pulse Rate 100 H 100 H Respiratory Rate 12 12 12 Blood Pressure 132/66 138/70 Pulse Oximetry 100 100 100 09/12/18 21:00 09/12/18 22:00 09/12/18 23:00 Temperature Pulse Rate 94 H 82 90 Respiratory Rate 12 12 12 Blood Pressure 113/66 102/66 106/67 Pulse Oximetry 100 100 99 09/12/18 23:43 09/13/18 00:00 09/13/18 01:00 Temperature 97.5 F L Pulse Rate 93 H 93 H Respiratory Rate 13 12 12 Blood Pressure 105/63 107/65 Pulse Oximetry 99 100 99 09/13/18 02:00 09/13/18 03:00 09/13/18 04:00 Temperature 97.4 F L Pulse Rate 82 80 77 Respiratory Rate 12 12 12 Blood Pressure 113/66 103/61 109/59 L Pulse Oximetry 100 99 100 09/13/18 04:25 09/13/18 05:00 09/13/18 06:00 Temperature Pulse Rate 96 H 86 Respiratory Rate 13 12 13 Blood Pressure 98/64 L 111/65 Pulse Oximetry 99 99 100 Intake & Output 09/12/18 09/13/18 09/13/18 18:59 06:59 18:59 Intake Total 1207.5 / 1207.5 377.6 / 377.6 Output Total 1350 / 1350 1045 / 1045 Balance -142.5 / -142.5 -667.4 / -667.4 Weight 104.9 kg Intake: IV 107.5 / 107.5 377.6 / 377.6 Cerebyx Inj 130 MGPE In NS Inj 52.6 / 52.6 50 ML @ 216 mls/hr IV.SIG Q12HR [facility] Rx#:[id number] Vimpat Inj 100 MG In NS Inj 100 110 / 110 ML @ 110 mls/hr IV.SIG Q12HR [facility] Rx#:[id number] Depacon Inj 750 MG In NS Inj 107.5 / 107.5 215.0 / 215.0 100 ML @ 105 mls/hr IV.SIG Q8H [facility] Rx#:[id number] Oral 0 / 0 Anesthesia Amount 1100 / 1100 Output: Urine 700 / 700 Stool 300 / 300 Estimated Blood Loss 50 / 50 Urine Amount (Catheter) 600 / 600 615 / 615 Indwelling Temp Sensing 600 / 600 615 / 615 Catheter Wound Drainage 130 / 130 # 1 Left Head 130 / 130 Other: Date of Last Bowel Movement 09/11/18 09/13/18 Result Diagrams: 09/13/18 05:30 09/13/18 05:30 Objective Remarks: - Constitutional Calm, on mechanical ventilation - Routine HEENT Exam Head: Present: atraumatic Eye: Present: PERRL ENT: Present: mucous membranes moist - Routine Neck Exam Orotracheal intubation. Absent: JVD, carotid bruit - Routine Chest/Breast/Axilla Exam Chest wall: Normal excursion. Absent: tenderness - Routine Respiratory Exam Present: patient mechanically ventilated. Breath sounds clear. Absent: rhonchi , stridor, wheezes, crackles - Routine Cardiovascular Exam Present: S1, S2, irregularly irregular rhythm, no JVD. - Routine Abdominal Exam Present: soft, normoactive bowel sounds, no guarding - Routine Extremities Exam Warm, well-perfused. Absent: cyanosis, clubbing, edema - Routine Skin Exam Present: intact. Absent: cyanosis, erythema - Routine Neurological Exam Present: Heavily sedated now for seizure control. Now status post mass resection, breathes over ventilator rate. Assessment and Plan - Assessment and Plan Plan: Respiratory failure -Intubated for an airway protection -Attempt to wean and extubate when seizure-free -Vent bundle -DuoNeb's as needed -Start spontaneous breathing trials now that Versed has been discontinued -Elevated airway pressures probably associated with seizures Versed restarted. Seizure -IV Keppra -EEG -Propofol -Neurology consultation -Cerebyx added 09/07 -Phenobarbital added -Left frontal focus of intermittent seizures persists 09/08, 09/10, 09/11 -Plan resection of seizure substrate and left frontal lobe. Left frontal intraparenchymal ICH -Old from beginning of August -Decreasing in size -Continue seizure prophylaxis and treatment -No intervention indicated -Repeat head CT with decreased dimensions of hematoma compared to previous study. -2 cm hemorrhagic mass left frontal lobe resected 09/12 Atrial fibrillation -Metoprolol -Hold anticoagulation due to recent ICH Severe mitral and tricuspid regurgitation. Pulmonary hypertension. -Decrease Bumex 1 milligram IV daily, continue metolazone Diabetes -Insulin sliding scale -Elevated this morning will follow for trend. Dyslipidemia -Pravastatin Hypertension -Metolazone -Metoprolol C. difficile infection -Patient received vancomycin and Zosyn during hospital admission August 19 and was discharged on Levaquin. -Diarrheal stool noticed day 3, antigen and toxin positive -Oral vancomycin 250 4 times daily started 09/09 DVT GI prophylaxis -Teds SCDs -Subcu heparin -Pepcid Overall impression: This gentleman is critically ill having sustained seizures which required intubation and mechanical ventilation for control. We are unable to wean him from the ventilator at this time. Intermittent nonconvulsive seizures were documented yesterday by EEG. Continue to add AED treatment and confirm cessation of seizures before extubation. Remains critically ill and neurologically unstable. Episodic seizure activity persists in the left frontal lobe. Operative eradication of the seizure focus is necessary at this point and mass in left frontal lobe was resected yesterday. Patient remains heavily sedated on on mechanical ventilation with unstable neurological status related to refractory seizures. Critical care 35 minutes aside from procedures.
[2018-09-13] MEDS: Famotidine PF Inj 20 MG/2 ML Vial IV.PUSH SCH ×2 (08:27→20:37)
[2018-09-13] MEDS: Metoprolol Tartrate 50 MG Tablet PO SCH ×2 (08:29→20:37)
[2018-09-13] MEDS: metOLazone 5 MG Tablet PO SCH (08:29)
[2018-09-13] MEDS: Magnesium Oxide 400 MG Tablet PO SCH ×2 (08:29→20:37)
[2018-09-13] MEDS: Allopurinol 100 MG Tablet PO SCH (08:29)
[2018-09-13] MEDS: Sod Chloride 0.9% Inj 1,000 ML IV.CONT SCH ×3 (08:30→21:55)
[2018-09-13] MEDS: Chlorhexidine 0.12% Oral Kit 15 ML UDC OROPHARYNG SCH ×2 (08:31→20:36)
[2018-09-13] MEDS: Senna/Docusate Sodium 8.6/50 MG Tablet PO SCH ×2 (08:31→20:37)
[2018-09-13] MEDS: Beneprotein Powder Packet G-TUBE SCH ×3 (08:33→18:30)
[2018-09-13] MEDS: Fosphenytoin Inj 130 MGPE in Sodium Chlor 0.9% Inj 50 ML IV.SIG SCH ×2 (08:41→20:41)
[2018-09-13] MEDS: Lacosamide Inj 100 MG in Sodium Chlor 0.9% Inj 100 ML IV.SIG SCH ×2 (08:44→20:38)
--- NOTE | 2018-09-13 11:58 | P.PNNEU ---
Subjective Subjective Comments: off sedatives 12 hours Active Medications: Active Medications Acetaminophen (Tylenol) 650 mg PO Q6H PRN PRN Reason: FOR FEVER >101F Last Admin: 09/11/18 19:57 Dose: 650 mg Al Hydroxide/Mg Hydroxide (Milk Of Magnbreanne Liq) 30 ml PO Q12H PRN PRN Reason: Mild Constipation Albuterol (Duoneb Neb (Prn)) 1 ampul NEB Q2HR NEB PRN PRN Reason: WHEEZING Last Admin: 09/11/18 20:59 Dose: 1 ampul Allopurinol (Zyloprim) 100 mg PO DAILY [facility] Last Admin: 09/13/18 08:29 Dose: 100 mg Bisacodyl (Dulcolax Supp) 10 mg RECTAL DAILY PRN PRN Reason: SEVERE CONSITIPATION Bumetanide (Bumex Inj) 1 mg IV.PUSH DAILY [facility] Last Admin: 09/13/18 08:28 Dose: 1 mg Chlorhexidine Gluconate (Peridex 0.12% Oral Kit) 15 ml OROPHARYNG BID@0800, 2000 [facility] Last Admin: 09/13/18 08:31 Dose: 15 ml Dexamethasone Sodium Phosphate (Decadron Inj) 4 mg IV.PUSH Q6H [facility] Last Admin: 09/13/18 08:28 Dose: 4 mg Dextrose (D50w Vial) 50 ml IV.PUSH UNSCH PRN PRN Reason: PER HYPOGLYCEMIA PROTOCOL Diltiazem HCl (Cardizem Cd 24hr) 120 mg PO DAILY [facility] Last Admin: 09/07/18 12:00 Dose: Not Given Diltiazem HCl (Cardizem) 30 mg PO Q6H [facility] Last Admin: 09/13/18 08:29 Dose: 30 mg Famotidine (Pepcid Pf Inj) 10 mg IV.PUSH Q12HR [facility] Last Admin: 09/13/18 08:27 Dose: 10 mg Glucagon (Glucagon Inj) 1 mg OTHER PRN PRN PRN Reason: for Hypoglycemia Protocol Heparin Sodium (Porcine) (Heparin Inj) 5,000 units SQ Q8HR [facility] Last Admin: 09/13/18 05:35 Dose: 5,000 units Propofol (Diprivan 1000 Mg/100 Ml Inj) 1,000 mg in 100 mls @ 2.449 mls/hr IV.CONT TITRATE PRN; Protocol PRN Reason: Per Protocol Last Titration: 09/08/18 09:02 Dose: 0 mcg/kg/min, 0 mls/hr Sodium Chloride (Ns Inj) 1,000 mls @ 84 mls/hr IV.CONT .[id number] [facility] Last Admin: 09/13/18 08:30 Dose: 84 mls/hr Lacosamide 100 mg/ Sodium (Chloride) 110 mls @ 110 mls/hr IV.SIG Q12HR MAGALY Last Infusion: 09/13/18 09:44 Dose: Infused Phenylephrine HCl 40 mg/ (Sodium Chloride) 500 mls @ 30 mls/hr IV.CONT TITRATE PRN; Protocol PRN Reason: See Protocol Last Titration: 09/08/18 20:18 Dose: 0 mcg/min, 0 mls/hr Fosphenytoin Sodium 130 mgpe/ (Sodium Chloride) 52.6 mls @ 216 mls/hr IV.SIG Q12HR [facility] Last Infusion: 09/13/18 08:56 Dose: Infused Valproate Sodium 750 mg/ (Sodium Chloride) 107.5 mls @ 105 mls/hr IV.SIG Q8H [facility] Last Infusion: 09/13/18 05:10 Dose: Infused Cefazolin Sodium/Dextrose (Ancef 2 Gm Premix Inj) 2 gm in 50 mls @ 100 mls/hr IV.SIG VOICE OVER ARTIST PRN PRN Reason: PROCEDURE ANESTHESIA Stop: 09/16/18 16:57 Midazolam HCl (Versed Inj) 50 mg in 50 mls @ 2 mls/hr IV.CONT TITRATE PRN; Protocol PRN Reason: Per Protocol Insulin Aspart (Novolog Insulin Correctional Sugar Inj) 0 unit SQ Q6HR [facility]Y; Protocol Last Admin: 09/13/18 06:33 Dose: 2 unit Lactulose (Lactulose Liq) 30 ml PO DAILY PRN PRN Reason: SEVERE CONSITIPATION Lorazepam (Ativan Inj) 1 mg IV.PUSH Q1H PRN PRN Reason: Agitation/sedation or Seizure Last Admin: 09/07/18 04:37 Dose: 1 mg Magnesium Oxide (Mag-Ox) 400 mg PO BID [facility] Last Admin: 09/13/18 08:29 Dose: 400 mg Metolazone (Zaroxolyn) 5 mg PO DAILY [facility] Last Admin: 09/13/18 08:29 Dose: 5 mg Metoprolol Tartrate (Lopressor) 50 mg PO BID [facility] Last Admin: 09/13/18 08:29 Dose: 50 mg Miscellaneous Medication () 1 each OROPHARYNG 0000,0400,1200,1600 [facility] Last Admin: 09/13/18 03:37 Dose: 1 each Morphine Sulfate (Morphine Inj) 2 mg IV.PUSH Q2H PRN PRN Reason: PAIN SCALE 6 TO 10 Morphine Sulfate (Morphine Inj) 2 mg IV.PUSH Q2H PRN PRN Reason: Pain Scale 1 to 6 Ondansetron HCl (Zofran Inj) 4 mg IV.PUSH Q6H PRN PRN Reason: NAUSEA OR VOMITING Phenobarbital Sodium (Luminal Inj) 120 mg IV.PUSH Q8HR [facility] Last Admin: 09/13/18 06:23 Dose: 120 mg Pravastatin Sodium (Pravachol) 40 mg PO HS [facility] Last Admin: 09/12/18 20:43 Dose: 40 mg Senna/Docusate Sodium (Janeen-Colace) 1 tab PO BID [facility] Last Admin: 09/13/18 08:31 Dose: Not Given Sennosides (Senokot) 17.2 mg PO Q12H PRN PRN Reason: Moderate Constipation Sodium Chloride (Ns Flush) 2 ml IV.FLUSH BID [facility] Last Admin: 09/13/18 08:28 Dose: 2 ml Sodium Chloride (Ns Flush) 2 ml IV.FLUSH PRN PRN PRN Reason: FLUSH AFTER USING IV ACCESS Last Admin: 09/12/18 20:57 Dose: 2 ml Terbutaline Sulfate (Brethine Inj) 1 mg SQ UNSCH PRN PRN Reason: For Extravasation Vancomycin HCl (Vancomycin Po) 250 mg PO QID [facility] Last Admin: 09/13/18 08:27 Dose: 250 mg Whey (Beneprotein Powder) 1 packet G-TUBE TID [facility] Last Admin: 09/13/18 08:33 Dose: 1 packet Allergies/Adverse Reactions: Allergies Allergy/AdvReac Type Severity Reaction Status Date / Time digitoxin Allergy Severe Hallucinati Verified 08/19/18 15:46 ons Physical Exam Vital signs: Vital Signs 09/12/18 12:00 09/12/18 14:00 09/12/18 14:50 Temperature 98.7 F Pulse Rate 99 H 90 Respiratory Rate 12 Blood Pressure 106/65 Pulse Oximetry 100 100 09/12/18 18:00 09/12/18 19:00 09/12/18 19:53 Temperature 98.7 F Pulse Rate 102 H 100 H Respiratory Rate 12 12 Blood Pressure 132/66 Pulse Oximetry 100 100 09/12/18 20:00 09/12/18 21:00 09/12/18 22:00 Temperature 98.7 F Pulse Rate 100 H 94 H 82 Respiratory Rate 12 12 12 Blood Pressure 138/70 113/66 102/66 Pulse Oximetry 100 100 100 09/12/18 23:00 09/12/18 23:43 09/13/18 00:00 Temperature 97.5 F L Pulse Rate 90 93 H Respiratory Rate 12 13 12 Blood Pressure 106/67 105/63 Pulse Oximetry 99 99 100 09/13/18 01:00 09/13/18 02:00 09/13/18 03:00 Temperature Pulse Rate 93 H 82 80 Respiratory Rate 12 12 12 Blood Pressure 107/65 113/66 103/61 Pulse Oximetry 99 100 99 09/13/18 04:00 09/13/18 04:25 09/13/18 05:00 Temperature 97.4 F L Pulse Rate 77 96 H Respiratory Rate 12 13 12 Blood Pressure 109/59 L 98/64 L Pulse Oximetry 100 99 99 09/13/18 06:00 09/13/18 07:43 Temperature Pulse Rate 86 Respiratory Rate 13 12 Blood Pressure 111/65 Pulse Oximetry 100 99 Intake & Output 09/12/18 09/13/18 09/13/18 18:59 06:59 18:59 Intake Total 1207.5 / 1207.5 377.6 / 377.6 1162.6 / 1162.6 Output Total 1350 / 1350 1045 / 1045 40 / 40 Balance -142.5 / -142.5 -667.4 / -667.4 1122.6 / 1122.6 Weight 104.9 kg Intake: IV 107.5 / 107.5 377.6 / 377.6 1162.6 / 1162.6 NS Inj 1,000 ML @ 84 mls/hr IV. 1000 / 1000 CONT .[id number] [facility] Rx#:[id number] Cerebyx Inj 130 MGPE In NS Inj 52.6 / 52.6 52.6 / 52.6 50 ML @ 216 mls/hr IV.SIG Q12HR [facility] Rx#:[id number] Vimpat Inj 100 MG In NS Inj 100 110 / 110 110 / 110 ML @ 110 mls/hr IV.SIG Q12HR [facility] Rx#:[id number] Depacon Inj 750 MG In NS Inj 107.5 / 107.5 215.0 / 215.0 100 ML @ 105 mls/hr IV.SIG Q8H [facility] Rx#:[id number] Oral 0 / 0 Anesthesia Amount 1100 / 1100 Output: Urine 700 / 700 Stool 300 / 300 Estimated Blood Loss 50 / 50 Urine Amount (Catheter) 600 / 600 615 / 615 40 / 40 Indwelling Temp Sensing 600 / 600 615 / 615 40 / 40 Catheter Wound Drainage 130 / 130 # 1 Left Head 130 / 130 Other: Date of Last Bowel Movement 09/11/18 09/13/18 Narrative: comatose eyes up slightly pupil = not follow commands no clonus no twitch - Urinary Catheter Management Indwelling Urethral Catheter Cath placed during this visit: yes, but has since been removed by the nurse Reason for continuing: Decision to DC catheter Insertion date: 09/06/18 Insertion time: 23:00 Removal date: 09/08/18 Removal time: 18:21 Straight Cath placed during this visit: yes, but has since been removed by the nurse Reason for continuing: Decision to DC catheter Insertion date: 09/09/18 Insertion time: 02:20 Removal date: 09/10/18 Removal time: 12:00 Indwelling Temp Sensing Catheter Cath placed during this visit: yes Reason for continuing: Hourly intake/output Insertion date: 09/12/18 Insertion time: 15:30 Objective Laboratory Results - last 24 hr 09/12/18 09/12/18 09/13/18 16:42 18:14 00:05 WBC RBC Hgb Hct MCV MCH MCHC RDW Plt Count MPV Prelim Diff (Auto) WBC Differential Seg Neuts % (Manual) Band Neuts % (Manual) Lymphocytes % (Manual) Monocytes % (Manual) Basophils % (Manual) Metamyelocytes % (Man) Abs Neuts (Manual) Differential Comment Platelet Estimate Platelet Morphology Sodium Potassium Chloride Carbon Dioxide Anion Gap BUN Creatinine Estimated GFR POC Glucose 159 H 202 H Random Glucose Calcium Phosphorus Magnesium Phenobarbital Blood Type A Positive Antibody Screen Negative MTS Gel Crossmatch See Detail 09/13/18 09/13/18 05:30 05:30 WBC 7.2 RBC 2.59 L Hgb 9.1 L Hct 27.8 L MCV 107.5 H MCH 35.2 H MCHC 32.7 RDW 16.8 Plt Count 157 MPV 9.2 Prelim Diff (Auto) Slide review pending WBC Differential Manual diff final Seg Neuts % (Manual) 85 H Band Neuts % (Manual) 7 H Lymphocytes % (Manual) 3 L Monocytes % (Manual) 3 Basophils % (Manual) 1 Metamyelocytes % (Man) 1 Abs Neuts (Manual) 6.7 Differential Comment . Platelet Estimate Normal Platelet Morphology Normal Sodium 151 H Potassium 4.4 Chloride 117 H Carbon Dioxide 25.7 Anion Gap 8 BUN 66 H Creatinine 1.40 H Estimated GFR 49 L POC Glucose Random Glucose 150 H Calcium 8.5 Phosphorus 4.1 D Magnesium 2.4 Phenobarbital 18.2 Blood Type Antibody Screen MTS Gel Crossmatch Review/Management - Diagnosis (1) Localization-related (focal) (partial) symptomatic epilepsy and epileptic syndromes with complex partial seizures, intractable, with status epilepticus Code(s): G40.211 - Localization-related (focal) (partial) symptomatic epilepsy and epileptic syndromes with complex partial seizures, intractable, with status epilepticus Status: Acute Current Visit: Yes (2) Atrial fibrillation Code(s): I48.91 - Unspecified atrial fibrillation Status: Acute Current Visit: Yes (3) Acute encephalopathy Code(s): G93.40 - Encephalopathy, unspecified Status: Acute Current Visit: Yes (4) ICH (intracerebral hemorrhage) Code(s): I61.9 - Nontraumatic intracerebral hemorrhage, unspecified Status: Acute Current Visit: No - Review/Management Plan: unclear why not awake and looking at lesion on mri very round ? tumor id w nusu may be tumor await path should be more awake ? todds check levela dn recheck mri brain with and eeg left pleds on vpa vimpat dil and pbarb (4) ICH (intracerebral hemorrhage) Qualifiers: Intracerebral hemorrhage etiology: traumatic Encounter type: initial encounter Laterality: left Loss of consciousness presence/duration: with LOC of unspecified duration Qualified Code(s): S06.359A - Traumatic hemorrhage of left cerebrum with loss of consciousness of unspecified duration, initial encounter
[2018-09-13 12:05] LABS: ABG Base Excess -1.9 mmol/L (-2-2); ABG PCO2 37 mmHg (38-42); ABG PO2 181 mmHg (61-120)
[2018-09-13 14:05] LABS: Phenytoin (Dilantin) 10.9 mcg/mL (10.0-20.0)
--- NOTE | 2018-09-13 16:30 | CT ---
EXAM DATE: 09/13/2018 4:21 PM EDT AGE/SEX: 77 years / Male INDICATIONS: Seizure. CLINICAL DATA: This is the patient's initial encounter. Patient reports that signs and symptoms have been present for 1 day and indicates a pain score of Nonresponsive. MEDICAL/SURGICAL HISTORY: Diabetes. intracranial bleed Defibrillator. RADIATION DOSE: 66.34 CTDI (mGy) COMPARISON: [facility] [place], CT HEAD W/O CONTRAST, 09/07/2018. . TECHNIQUE: CT of the head without contrast. Using automated exposure control and adjustment of the mA and/or kV according to patient size, radiation dose was kept as low as reasonably achievable to ob tain optimal diagnostic quality images. DICOM format image data is available electronically for revi ew and comparison. FINDINGS: Cerebrum: Comparison is previous CT head from September 07 which is preoperative. There is interval le ft frontal craniotomy with drain present in the subdural space. There is residual edema in the left f rontal lobe and some subacute hemorrhage extending towards the vertex. There is no significant mass e ffect or midline shift. Posterior Fossa: The cerebellum and brainstem are intact. The 4th ventricle is midline. The cerebe llopontine angle is unremarkable. Extracranial: The visualized portion of the orbits is intact. Skull: The calvaria is intact. No evidence of skull fracture. CONCLUSION: 1. Interval left frontal craniotomy with some hemorrhage in the operative bed and surrounding edema in the left frontal lobe. Currently no significant mass effect or shift. Drain in the subdural space. . Electronically signed by: Milton Manriquez MD 09/13/2018 4:28 PM EDT
[2018-09-14] MEDS: Oral Hygiene Kit OROPHARYNG SCH ×4 (00:59→17:51)
[2018-09-14] MEDS: Insulin NovoLOG Aspart Correctional Sugar Inj SQ SCH ×4 (00:59→18:16)
[2018-09-14] MEDS: dilTIAZem 30 MG Tablet PO SCH ×4 (01:00→20:33)
[2018-09-14] MEDS: Heparin - SQ 10,000 UNITS/ML Vial SQ SCH ×3 (06:02→22:56)
[2018-09-14] MEDS: PHENobarbital Inj 130 MG/ML Vial IV.PUSH SCH ×3 (06:02→22:57)
[2018-09-14] MEDS: Valproate Inj 750 MG in Sodium Chlor 0.9% Inj 100 ML IV.SIG SCH ×3 (06:03→20:33)
[2018-09-14 06:22] LABS: Calcium 8.5 mg/dL (8.5-10.1); Carbon Dioxide 24.4 meq/L (21.0-32.0); Phenytoin (Dilantin) 11.6 mcg/mL (10.0-20.0); Potassium 4.4 meq/L (3.5-5.1)
[2018-09-14] MEDS: Metoprolol Tartrate 50 MG Tablet PO SCH ×2 (08:52→20:36)
[2018-09-14] MEDS: Magnesium Oxide 400 MG Tablet PO SCH ×2 (08:52→20:33)
[2018-09-14] MEDS: Allopurinol 100 MG Tablet PO SCH (08:52)
[2018-09-14] MEDS: metOLazone 5 MG Tablet PO SCH (08:52)
[2018-09-14] MEDS: Chlorhexidine 0.12% Oral Kit 15 ML UDC OROPHARYNG SCH ×2 (08:52→20:33)
[2018-09-14] MEDS: Fosphenytoin Inj 130 MGPE in Sodium Chlor 0.9% Inj 50 ML IV.SIG SCH ×2 (08:53→20:34)
[2018-09-14] MEDS: Famotidine PF Inj 20 MG/2 ML Vial IV.PUSH SCH ×2 (08:54→20:33)
[2018-09-14] MEDS: Senna/Docusate Sodium 8.6/50 MG Tablet PO SCH ×2 (08:55→20:33)
[2018-09-14] MEDS: Beneprotein Powder Packet G-TUBE SCH ×3 (08:55→17:52)
[2018-09-14] MEDS: Lacosamide Inj 100 MG in Sodium Chlor 0.9% Inj 100 ML IV.SIG SCH ×2 (08:59→20:34)
--- NOTE | 2018-09-14 10:09 | P.PNCC ---
Subjective Subjective Remarks/Hospital Course: 69-year-old male with a history of recent ICH, and seizure disorder presents from home after he was seizing. Called paramedics arrived to find him seizing in the setting they gave him 2 of Versed to break his seizure after they establish IV access patient then in route has another seizure and they gave him 2 more Versed. The patient was a postictal voiding episode and became in respiratory distress needed to be intubated by the paramedics. They intubated him and arrived to emergency department sedated intubated and possibly seizing with contraction of the right hand. He was started on a propofol drip to keep him sedated as well as seizure-free and he has been admitted to the ICU. 09/07: No more seizure activity. Weaned to propofol 5 mics per kilogram per minute. AED restarted. CAT scan shows diminished size of left frontal lobe hematoma compared to prior study. 09/08: No more obvious seizure activity. Patient withdraws limbs aside from left foot. He grimaces to noxious stimulation. Breathes spontaneously over the ventilator. We need to confirm that he is indeed stopped seizing. Cerebyx added to Keppra. 09/09: Focus of left frontal intermittent seizure activity persists on 09/08. Still on Versed drip infusion and mechanical ventilation. Neurology service continues to adjust AED regimen. MRI yesterday without other significant injury aside from the known left frontal hematoma. 09/10: Focal area of intermittent seizure frontal lobe persisted yesterday on EEG. AED doses being adjusted. Urine output marginal, will reinstitute loop diuretic along with metolazone. Underlying cardiac function impaired at baseline with severe mitral and tricuspid regurgitation along with pulmonary hypertension as expected. Most recent echo is about a month ago. 09/11: Continued left fronto temporal seizure activity despite 3 AEDs. Juxtaposition of this 2 cm maturing left frontal lobe hematoma to the seizure activity is probably not coincidental. I have discussed with the family the concept of excising the mature hematoma in an attempt to attenuate the seizure activity. 09/12: Patient required versed yesterday for elevated airway pressures possibly related to seizure activity. No problems after Versed bolus and restarted. Plan is for resection of the seizure substrate in the left frontal lobe today. 09/13: Status post resection of left frontal lobe hemorrhagic mass yesterday. Return from OR on mechanical ventilation. Stable hemodynamics. Patient remains neurologically unstable with refractory seizures for which he underwent mass resection. 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 All sedation was stopped late Saturday and we are waiting for the gentleman to wake up. By cardiac echo obtained during his last admission he has both severe mitral and tricuspid regurgitation. He tends to retain fluid and is been chronically on Bumex 2 mg and metolazone 5 mg daily. Renal function tests indicate a prerenal type azotemia. It is unlikely that this represents too little intravascular volume because his weight is up and he has peripheral edema in his lower extremities. I have added albumin in an attempt to mobilize some fluid. Fortunately gas exchange has been good. Objective Vital Signs / I&O: Vital Signs 09/13/18 10:00 09/13/18 12:00 09/13/18 12:22 Temperature 98 F Pulse Rate 84 96 H Respiratory Rate 12 12 Blood Pressure 101/61 Pulse Oximetry 100 99 09/13/18 14:00 09/13/18 16:00 09/13/18 16:45 Temperature 97.5 F L Pulse Rate 92 H 82 Respiratory Rate 16 Blood Pressure 110/63 Pulse Oximetry 100 100 09/13/18 18:00 09/13/18 18:30 09/13/18 20:00 Temperature 97.8 F Pulse Rate 82 82 Respiratory Rate 12 12 Blood Pressure 119/72 Pulse Oximetry 100 100 09/13/18 20:34 09/13/18 22:00 09/13/18 23:35 Temperature Pulse Rate 86 Respiratory Rate 13 13 Blood Pressure Pulse Oximetry 100 100 09/14/18 00:00 09/14/18 02:00 09/14/18 03:58 Temperature 97.4 F L Pulse Rate 76 88 Respiratory Rate 13 13 Blood Pressure 113/60 Pulse Oximetry 100 100 09/14/18 04:00 09/14/18 06:00 09/14/18 08:23 Temperature 97.8 F Pulse Rate 87 87 Respiratory Rate 12 17 Blood Pressure 118/66 Pulse Oximetry 100 100 Intake & Output 09/13/18 09/14/18 09/14/18 18:59 06:59 18:59 Intake Total 2282.1 / 2282.1 1928.1 / 1928.1 107.5 / 107.5 Output Total 950 / 950 590 / 590 Balance 1332.1 / 1332.1 1338.1 / 1338.1 107.5 / 107.5 Weight 105.3 kg Intake: IV 1270.1 / 1270.1 1270.1 / 1270.1 107.5 / 107.5 NS Inj 1,000 ML @ 84 mls/hr IV. 1000 / 1000 1000 / 1000 CONT .[id number] MAGALY Rx#:[id number] Cerebyx Inj 130 MGPE In NS Inj 52.6 / 52.6 52.6 / 52.6 50 ML @ 216 mls/hr IV.SIG Q12HR MAGALY Rx#:[id number] Vimpat Inj 100 MG In NS Inj 100 110 / 110 110 / 110 ML @ 110 mls/hr IV.SIG Q12HR MAGALY Rx#:[id number] Depacon Inj 750 MG In NS Inj 107.5 / 107.5 107.5 / 107.5 107.5 / 107.5 100 ML @ 105 mls/hr IV.SIG Q8H MAGALY Rx#:[id number] Tube Feeding 412 / 412 538 / 538 Tube Irrigant 600 / 600 120 / 120 Output: Stool 250 / 250 50 / 50 Urine Amount (Catheter) 640 / 640 500 / 500 Indwelling Temp Sensing 640 / 640 500 / 500 Catheter Wound Drainage 60 / 60 40 / 40 # 1 Left Head 60 / 60 40 / 40 Other: Date of Last Bowel Movement 09/13/18 09/14/18 Result Diagrams: 09/13/18 05:30 09/14/18 05:30 Objective Remarks: - Constitutional Calm, on mechanical ventilation - Routine HEENT Exam Head: Present: atraumatic Eye: Present: PERRL ENT: Present: mucous membranes moist - Routine Neck Exam Orotracheal intubation. Absent: JVD, carotid bruit - Routine Chest/Breast/Axilla Exam Chest wall: Normal excursion. Absent: tenderness - Routine Respiratory Exam Present: patient mechanically ventilated. Breath sounds clear. Absent: rhonchi , wheezes, crackles - Routine Cardiovascular Exam Present: S1, S2, irregularly irregular rhythm, no JVD. - Routine Abdominal Exam Present: soft, normoactive bowel sounds, no guarding - Routine Extremities Exam Warm, well-perfused. Absent: cyanosis, clubbing, edema - Routine Skin Exam Present: intact. Absent: cyanosis, erythema - Routine Neurological Exam Present: Largely unresponsive but withdraws 4 limbs. Sedation stopped 12 hours ago. Now status post left frontal lobe mass resection, breathes over ventilator rate. 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 -2 cm hemorrhagic mass left frontal lobe resected 09/12 Atrial fibrillation -Metoprolol -Hold anticoagulation due to recent ICH Severe mitral and tricuspid regurgitation. Pulmonary hypertension. -Decrease Bumex 1 milligram IV daily, continue metolazone -Add albumin twice daily to mobilize peripheral edema -Azotemia worrisome but may need to return to Bumex 2 mg/day Diabetes -Insulin sliding scale -Elevated this morning will follow for trend. -Made more difficult by Decadron, initiated Levemir 6 units subcu twice daily, continue sliding scale correction Dyslipidemia -Pravastatin Hypertension -Metolazone -Metoprolol, and for A. fib rate control C. difficile infection -Patient received vancomycin and Zosyn during hospital admission August 19 and was discharged on Levaquin. -Diarrheal stool noticed day 3, antigen and toxin positive -Oral vancomycin 250 4 times daily started 09/09 DVT GI prophylaxis -Teds SCDs -Subcu heparin -Pepcid Overall impression: This gentleman is critically ill having sustained seizures which required intubation and mechanical ventilation for control. We are unable to wean him from the ventilator at this time. Intermittent nonconvulsive seizures were documented multiple times by EEG. Remains critically ill and neurologically unstable. Episodic seizure activity persists in the left frontal lobe. Operative eradication of the seizure focus is necessary at this point and mass in left frontal lobe was resected yesterday. All sedation has been stopped and we are waiting for the patient to wake up. He has received substantial amounts of Versed over the past week in an attempt to control seizures and it may take a while for this to wear off in this elderly gentleman. Critical care 38 minutes aside from procedures.
[2018-09-14] MEDS: Insulin Detemir Inj 1,000 UNIT/10 ML Vial SQ SCH ×2 (11:24→20:34)
[2018-09-14] MEDS: Albumin Human 25% Inj 100 ML IV.SIG SCH ×2 (11:27→22:56)
--- NOTE | 2018-09-14 14:10 | P.PNNS ---
Subjective Interval history: Sedated EEG last night no seizures Withdrawing PERRL, but does not track Physical Exam Vital signs: Vital Signs 09/13/18 16:00 09/13/18 16:45 09/13/18 18:00 Temperature 97.5 F L Pulse Rate 82 82 Respiratory Rate 16 Blood Pressure 110/63 Pulse Oximetry 100 100 09/13/18 18:30 09/13/18 20:00 09/13/18 20:34 Temperature 97.8 F Pulse Rate 82 Respiratory Rate 12 12 13 Blood Pressure 119/72 Pulse Oximetry 100 100 100 09/13/18 22:00 09/13/18 23:35 09/14/18 00:00 Temperature 97.4 F L Pulse Rate 86 76 Respiratory Rate 13 13 Blood Pressure 113/60 Pulse Oximetry 100 100 09/14/18 02:00 09/14/18 03:58 09/14/18 04:00 Temperature 97.8 F Pulse Rate 88 87 Respiratory Rate 13 12 Blood Pressure 118/66 Pulse Oximetry 100 100 09/14/18 06:00 09/14/18 07:00 09/14/18 07:02 Temperature Pulse Rate 87 87 84 Respiratory Rate 13 14 Blood Pressure 115/66 Pulse Oximetry 100 100 09/14/18 07:17 09/14/18 07:32 09/14/18 07:47 Temperature Pulse Rate 87 88 87 Respiratory Rate 14 14 14 Blood Pressure 124/62 119/62 123/70 Pulse Oximetry 100 100 100 09/14/18 08:00 09/14/18 08:02 09/14/18 08:17 Temperature 98.2 F Pulse Rate 90 88 88 Respiratory Rate 13 14 13 Blood Pressure 121/68 121/65 Pulse Oximetry 100 100 100 09/14/18 08:23 09/14/18 08:32 09/14/18 08:47 Temperature Pulse Rate 88 92 H Respiratory Rate 17 17 15 Blood Pressure 122/69 121/64 Pulse Oximetry 100 100 100 09/14/18 09:00 09/14/18 09:02 09/14/18 09:17 Temperature Pulse Rate 88 90 89 Respiratory Rate 16 15 15 Blood Pressure 123/64 120/71 Pulse Oximetry 100 100 100 09/14/18 09:32 09/14/18 09:47 09/14/18 10:00 Temperature Pulse Rate 89 88 87 Respiratory Rate 18 19 17 Blood Pressure 118/64 117/67 Pulse Oximetry 100 100 100 09/14/18 10:02 09/14/18 10:17 09/14/18 10:59 Temperature Pulse Rate 87 83 87 Respiratory Rate 16 16 14 Blood Pressure 116/73 125/63 110/58 L Pulse Oximetry 100 100 100 09/14/18 11:00 09/14/18 11:30 09/14/18 11:38 Temperature Pulse Rate 85 86 Respiratory Rate 20 16 16 Blood Pressure 112/69 Pulse Oximetry 100 99 99 09/14/18 12:00 09/14/18 12:30 Temperature 98.2 F Pulse Rate 90 94 H Respiratory Rate 17 17 Blood Pressure 124/80 128/69 Pulse Oximetry 99 98 Intake & Output 09/13/18 09/14/18 09/14/18 18:59 06:59 18:59 Intake Total 2282.1 / 2282.1 1928.1 / 1928.1 270.1 / 270.1 Output Total 950 / 950 590 / 590 Balance 1332.1 / 1332.1 1338.1 / 1338.1 270.1 / 270.1 Weight 105.3 kg Intake: IV 1270.1 / 1270.1 1270.1 / 1270.1 270.1 / 270.1 NS Inj 1,000 ML @ 84 mls/hr IV. 1000 / 1000 1000 / 1000 CONT .[id number] MAGALY Rx#:[id number] Cerebyx Inj 130 MGPE In NS Inj 52.6 / 52.6 52.6 / 52.6 52.6 / 52.6 50 ML @ 216 mls/hr IV.SIG Q12HR MAGALY Rx#:[id number] Vimpat Inj 100 MG In NS Inj 100 110 / 110 110 / 110 110 / 110 ML @ 110 mls/hr IV.SIG Q12HR MAGALY Rx#:[id number] Depacon Inj 750 MG In NS Inj 107.5 / 107.5 107.5 / 107.5 107.5 / 107.5 100 ML @ 105 mls/hr IV.SIG Q8H MAGALY Rx#:[id number] Tube Feeding 412 / 412 538 / 538 Tube Irrigant 600 / 600 120 / 120 Output: Stool 250 / 250 50 / 50 Urine Amount (Catheter) 640 / 640 500 / 500 Indwelling Temp Sensing 640 / 640 500 / 500 Catheter Wound Drainage 60 / 60 40 / 40 # 1 Left Head 60 / 60 40 / 40 Other: Date of Last Bowel Movement 09/13/18 09/14/18 09/13/18 - Urinary Catheter Management Indwelling Urethral Catheter Cath placed during this visit: yes, but has since been removed by the nurse Reason for continuing: Decision to DC catheter Insertion date: 09/06/18 Insertion time: 23:00 Removal date: 09/08/18 Removal time: 18:21 Straight Cath placed during this visit: yes, but has since been removed by the nurse Reason for continuing: Decision to DC catheter Insertion date: 09/09/18 Insertion time: 02:20 Removal date: 09/10/18 Removal time: 12:00 Indwelling Temp Sensing Catheter Cath placed during this visit: yes Reason for continuing: Hourly intake/output Insertion date: 09/12/18 Insertion time: 15:30 Assessment and Plan - Plan 77yoM with intractable seizures s/p craniotomy 09/12 (Jonel) for resection of hemorrhagic seizure focus. hCT stable post op Neuro checks, EEG Anti seizure medication Wean sedation as tolerated
--- NOTE | 2018-09-14 17:10 | MG ---
cc: Benjamin Ribeiro MD INDICATIONS: Repeat EEG left frontal lobe lesion, Ryan, Stephenantin. FINDINGS: There are still some left frontal discharges. Phase reversing sharp waves seen over the left frontal head region about every 2-3 seconds. There is no field over into the right hemisphere. Some diffuse theta slowing in the 5 Hz range is noted and this pattern continues throughout the recording. Photic stimulation is performed without significant posterior driving. IMPRESSION: Left frontal discharges continue, somewhat epileptiform but no prolonged seizure is noted. MD DARBY Mahoney/roland , 03:26 PM , 03:30 PM
--- NOTE | 2018-09-14 17:49 | P.PNNEU ---
Subjective Active Medications: Active Medications Acetaminophen (Tylenol) 650 mg PO Q6H PRN PRN Reason: FOR FEVER >101F Last Admin: 09/11/18 19:57 Dose: 650 mg Al Hydroxide/Mg Hydroxide (Milk Of Cesario Mari) 30 ml PO Q12H PRN PRN Reason: Mild Constipation Albuterol (Duoneb Neb (Prn)) 1 ampul NEB Q2HR NEB PRN PRN Reason: WHEEZING Last Admin: 09/11/18 20:59 Dose: 1 ampul Allopurinol (Zyloprim) 100 mg PO DAILY [facility] Last Admin: 09/14/18 08:52 Dose: 100 mg Bisacodyl (Dulcolax Supp) 10 mg RECTAL DAILY PRN PRN Reason: SEVERE CONSITIPATION Bumetanide (Bumex Inj) 1 mg IV.PUSH DAILY [facility] Last Admin: 09/14/18 08:53 Dose: 1 mg Chlorhexidine Gluconate (Peridex 0.12% Oral Kit) 15 ml OROPHARYNG BID@0800, 2000 [facility] Last Admin: 09/14/18 08:52 Dose: 15 ml Dexamethasone Sodium Phosphate (Decadron Inj) 4 mg IV.PUSH Q6H [facility] Last Admin: 09/14/18 14:00 Dose: 4 mg Dextrose (D50w Vial) 50 ml IV.PUSH UNSCH PRN PRN Reason: PER HYPOGLYCEMIA PROTOCOL Diltiazem HCl (Cardizem Cd 24hr) 120 mg PO DAILY [facility] Last Admin: 09/07/18 12:00 Dose: Not Given Diltiazem HCl (Cardizem) 30 mg PO Q6H [facility] Last Admin: 09/14/18 13:54 Dose: 30 mg Famotidine (Pepcid Pf Inj) 10 mg IV.PUSH Q12HR [facility] Last Admin: 09/14/18 08:54 Dose: 10 mg Glucagon (Glucagon Inj) 1 mg OTHER PRN PRN PRN Reason: for Hypoglycemia Protocol Heparin Sodium (Porcine) (Heparin Inj) 5,000 units SQ Q8HR [facility] Last Admin: 09/14/18 14:00 Dose: 5,000 units Propofol (Diprivan 1000 Mg/100 Ml Inj) 1,000 mg in 100 mls @ 2.449 mls/hr IV.CONT TITRATE PRN; Protocol PRN Reason: Per Protocol Last Titration: 09/08/18 09:02 Dose: 0 mcg/kg/min, 0 mls/hr Lacosamide 100 mg/ Sodium (Chloride) 110 mls @ 110 mls/hr IV.SIG Q12HR [facility] Last Infusion: 09/14/18 10:45 Dose: Infused Phenylephrine HCl 40 mg/ (Sodium Chloride) 500 mls @ 30 mls/hr IV.CONT TITRATE PRN; Protocol PRN Reason: See Protocol Last Titration: 09/08/18 20:18 Dose: 0 mcg/min, 0 mls/hr Fosphenytoin Sodium 130 mgpe/ (Sodium Chloride) 52.6 mls @ 216 mls/hr IV.SIG Q12HR [facility] Last Infusion: 09/14/18 09:07 Dose: Infused Valproate Sodium 750 mg/ (Sodium Chloride) 107.5 mls @ 105 mls/hr IV.SIG Q8H [facility] Last Infusion: 09/14/18 14:55 Dose: Infused Cefazolin Sodium/Dextrose (Ancef 2 Gm Premix Inj) 2 gm in 50 mls @ 100 mls/hr IV.SIG [employer] PRN PRN Reason: PROCEDURE ANESTHESIA Stop: 09/16/18 16:57 Midazolam HCl (Versed Inj) 50 mg in 50 mls @ 2 mls/hr IV.CONT TITRATE PRN; Protocol PRN Reason: Per Protocol Albumin Human (Flexbumin 25% Inj) 100 mls @ 60 mls/hr IV.SIG Q12H [facility] Stop: 09/16/18 23:59 Last Infusion: 09/14/18 13:07 Dose: Infused Insulin Aspart (Novolog Insulin Correctional Sugar Inj) 0 unit SQ Q6HR [facility]; Protocol Last Admin: 09/14/18 11:27 Dose: 4 unit Insulin Detemir (Levemir Inj) 6 unit SQ BID [facility] Last Admin: 09/14/18 11:24 Dose: 6 unit Lactulose (Lactulose Liq) 30 ml PO DAILY PRN PRN Reason: SEVERE CONSITIPATION Lorazepam (Ativan Inj) 1 mg IV.PUSH Q1H PRN PRN Reason: Agitation/sedation or Seizure Last Admin: 09/07/18 04:37 Dose: 1 mg Magnesium Oxide (Mag-Ox) 400 mg PO BID [facility] Last Admin: 09/14/18 08:52 Dose: 400 mg Metolazone (Zaroxolyn) 5 mg PO DAILY [facility] Last Admin: 09/14/18 08:52 Dose: 5 mg Metoprolol Tartrate (Lopressor) 50 mg PO BID [facility] Last Admin: 09/14/18 08:52 Dose: 50 mg Miscellaneous Medication () 1 each OROPHARYNG 0000,0400,1200,1600 [facility] Last Admin: 09/14/18 11:29 Dose: 1 each Morphine Sulfate (Morphine Inj) 2 mg IV.PUSH Q2H PRN PRN Reason: PAIN SCALE 6 TO 10 Morphine Sulfate (Morphine Inj) 2 mg IV.PUSH Q2H PRN PRN Reason: Pain Scale 1 to 6 Ondansetron HCl (Zofran Inj) 4 mg IV.PUSH Q6H PRN PRN Reason: NAUSEA OR VOMITING Phenobarbital Sodium (Luminal Inj) 120 mg IV.PUSH Q8HR [facility] Last Admin: 09/14/18 14:00 Dose: 120 mg Pravastatin Sodium (Pravachol) 40 mg PO HS [facility] Last Admin: 09/13/18 20:38 Dose: 40 mg Senna/Docusate Sodium (Janeen-Colace) 1 tab PO BID [facility] Last Admin: 09/14/18 08:55 Dose: Not Given Sennosides (Senokot) 17.2 mg PO Q12H PRN PRN Reason: Moderate Constipation Sodium Chloride (Ns Flush) 2 ml IV.FLUSH BID [facility] Last Admin: 09/14/18 08:54 Dose: 2 ml Sodium Chloride (Ns Flush) 2 ml IV.FLUSH PRN PRN PRN Reason: FLUSH AFTER USING IV ACCESS Last Admin: 09/12/18 20:57 Dose: 2 ml Terbutaline Sulfate (Brethine Inj) 1 mg SQ UNSCH PRN PRN Reason: For Extravasation Vancomycin HCl (Vancomycin Po) 250 mg PO QID [facility] Last Admin: 09/14/18 13:54 Dose: 250 mg Whey (Beneprotein Powder) 1 packet G-TUBE TID [facility] Last Admin: 09/14/18 13:54 Dose: 1 packet Allergies/Adverse Reactions: Allergies Allergy/AdvReac Type Severity Reaction Status Date / Time digitoxin Allergy Severe Hallucinati Verified 08/19/18 15:46 ons Physical Exam Vital signs: Vital Signs 09/13/18 18:00 09/13/18 18:30 09/13/18 20:00 Temperature 97.8 F Pulse Rate 82 82 Respiratory Rate 12 12 Blood Pressure 119/72 Pulse Oximetry 100 100 09/13/18 20:34 09/13/18 22:00 09/13/18 23:35 Temperature Pulse Rate 86 Respiratory Rate 13 13 Blood Pressure Pulse Oximetry 100 100 09/14/18 00:00 09/14/18 02:00 09/14/18 03:58 Temperature 97.4 F L Pulse Rate 76 88 Respiratory Rate 13 13 Blood Pressure 113/60 Pulse Oximetry 100 100 09/14/18 04:00 09/14/18 06:00 09/14/18 07:00 Temperature 97.8 F Pulse Rate 87 87 87 Respiratory Rate 12 13 Blood Pressure 118/66 Pulse Oximetry 100 100 09/14/18 07:02 09/14/18 07:17 09/14/18 07:32 Temperature Pulse Rate 84 87 88 Respiratory Rate 14 14 14 Blood Pressure 115/66 124/62 119/62 Pulse Oximetry 100 100 100 09/14/18 07:47 09/14/18 08:00 09/14/18 08:02 Temperature 98.2 F Pulse Rate 87 90 88 Respiratory Rate 14 13 14 Blood Pressure 123/70 121/68 Pulse Oximetry 100 100 100 09/14/18 08:17 09/14/18 08:23 09/14/18 08:32 Temperature Pulse Rate 88 88 Respiratory Rate 13 17 17 Blood Pressure 121/65 122/69 Pulse Oximetry 100 100 100 09/14/18 08:47 09/14/18 09:00 09/14/18 09:02 Temperature Pulse Rate 92 H 88 90 Respiratory Rate 15 16 15 Blood Pressure 121/64 123/64 Pulse Oximetry 100 100 100 09/14/18 09:17 09/14/18 09:32 09/14/18 09:47 Temperature Pulse Rate 89 89 88 Respiratory Rate 15 18 19 Blood Pressure 120/71 118/64 117/67 Pulse Oximetry 100 100 100 09/14/18 10:00 09/14/18 10:02 09/14/18 10:17 Temperature Pulse Rate 87 87 83 Respiratory Rate 17 16 16 Blood Pressure 116/73 125/63 Pulse Oximetry 100 100 100 09/14/18 10:59 09/14/18 11:00 09/14/18 11:30 Temperature Pulse Rate 87 85 86 Respiratory Rate 14 20 16 Blood Pressure 110/58 L 112/69 Pulse Oximetry 100 100 99 09/14/18 11:38 09/14/18 12:00 09/14/18 12:30 Temperature 98.2 F Pulse Rate 90 94 H Respiratory Rate 16 17 17 Blood Pressure 124/80 128/69 Pulse Oximetry 99 99 98 09/14/18 14:00 09/14/18 16:15 Temperature Pulse Rate 96 H Respiratory Rate 19 Blood Pressure Pulse Oximetry Intake & Output 09/13/18 09/14/18 09/14/18 18:59 06:59 18:59 Intake Total 2282.1 / 2282.1 1928.1 / 1928.1 477.6 / 477.6 Output Total 950 / 950 590 / 590 Balance 1332.1 / 1332.1 1338.1 / 1338.1 477.6 / 477.6 Weight 105.3 kg Intake: IV 1270.1 / 1270.1 1270.1 / 1270.1 477.6 / 477.6 NS Inj 1,000 ML @ 84 mls/hr IV. 1000 / 1000 1000 / 1000 CONT .[id number] [facility] Rx#:[id number] Flexbumin 25% Inj 100 ML @ 60 100 / 100 mls/hr IV.SIG Q12H [facility] Rx#: [id number] Cerebyx Inj 130 MGPE In NS Inj 52.6 / 52.6 52.6 / 52.6 52.6 / 52.6 50 ML @ 216 mls/hr IV.SIG Q12HR [facility] Rx#:[id number] Vimpat Inj 100 MG In NS Inj 100 110 / 110 110 / 110 110 / 110 ML @ 110 mls/hr IV.SIG Q12HR [facility] Rx#:[id number] Depacon Inj 750 MG In NS Inj 107.5 / 107.5 107.5 / 107.5 215.0 / 215.0 100 ML @ 105 mls/hr IV.SIG Q8H [facility] Rx#:[id number] Tube Feeding 412 / 412 538 / 538 Tube Irrigant 600 / 600 120 / 120 Output: Stool 250 / 250 50 / 50 Urine Amount (Catheter) 640 / 640 500 / 500 Indwelling Temp Sensing 640 / 640 500 / 500 Catheter Wound Drainage 60 / 60 40 / 40 # 1 Left Head 60 / 60 40 / 40 Other: Date of Last Bowel Movement 09/13/18 09/14/1818 Narrative: comatose pupil = no clonus toes mute - Urinary Catheter Management Indwelling Urethral Catheter Cath placed during this visit: yes, but has since been removed by the nurse Reason for continuing: Decision to DC catheter Insertion date: 09/06/18 Insertion time: 23:00 Removal date: 09/08/18 Removal time: 18:21 Straight Cath placed during this visit: yes, but has since been removed by the nurse Reason for continuing: Decision to DC catheter Insertion date: 09/09/18 Insertion time: 02:20 Removal date: 09/10/18 Removal time: 12:00 Indwelling Temp Sensing Catheter Cath placed during this visit: yes Reason for continuing: Hourly intake/output Insertion date: 09/12/18 Insertion time: 15:30 Objective Laboratory Results - last 24 hr 09/13/18 09/14/18 09/14/18 17:51 00:14 05:30 Sodium 150 H Potassium 4.4 Chloride 117 H Carbon Dioxide 24.4 Anion Gap 9 BUN 80 H Creatinine 1.46 H Estimated GFR 47 L POC Glucose 202 H 241 H Random Glucose 196 H Calcium 8.5 Phenytoin 11.6 Phenobarbital 22.6 09/14/18 11:13 Sodium Potassium Chloride Carbon Dioxide Anion Gap BUN Creatinine Estimated GFR POC Glucose 226 H Random Glucose Calcium Phenytoin Phenobarbital Review/Management - Diagnosis (1) Localization-related (focal) (partial) symptomatic epilepsy and epileptic syndromes with complex partial seizures, intractable, with status epilepticus Code(s): G40.211 - Localization-related (focal) (partial) symptomatic epilepsy and epileptic syndromes with complex partial seizures, intractable, with status epilepticus Status: Acute Current Visit: Yes (2) Atrial fibrillation Code(s): I48.91 - Unspecified atrial fibrillation Status: Acute Current Visit: Yes (3) Acute encephalopathy Code(s): G93.40 - Encephalopathy, unspecified Status: Acute Current Visit: Yes (4) ICH (intracerebral hemorrhage) Code(s): I61.9 - Nontraumatic intracerebral hemorrhage, unspecified Status: Acute Current Visit: No - Review/Management Plan: unclear why not awake and looking at lesion on mri very round ? tumor id w nusu may be tumor await path should be more awake ? todds check levela dn recheck mri brain with and eeg left pleds on vpa vimpat dil and pbarb -- 09/14/18 no change still left pleds dil 11 prob free dil aroun 18 with low alb vpa 67 pbarb 22 unclear why so unresponsive no old ct [facility] unclear where he had that done ? was tumor? dr wright in am consider mri in am (4) ICH (intracerebral hemorrhage) Qualifiers: Intracerebral hemorrhage etiology: traumatic Encounter type: initial encounter Laterality: left Loss of consciousness presence/duration: with LOC of unspecified duration Qualified Code(s): S06.359A - Traumatic hemorrhage of left cerebrum with loss of consciousness of unspecified duration, initial encounter
[2018-09-15] MEDS: Insulin NovoLOG Aspart Correctional Sugar Inj SQ SCH ×5 (00:53→23:55)
[2018-09-15] MEDS: Oral Hygiene Kit OROPHARYNG SCH ×5 (00:53→23:40)
[2018-09-15] MEDS: dilTIAZem 30 MG Tablet PO SCH ×4 (01:23→20:32)
[2018-09-15] MEDS: Valproate Inj 750 MG in Sodium Chlor 0.9% Inj 100 ML IV.SIG SCH ×3 (03:44→20:39)
[2018-09-15 05:02] LABS: Calcium 8.7 mg/dL (8.5-10.1); Carbon Dioxide 24.2 meq/L (21.0-32.0); Phenytoin (Dilantin) 11.3 mcg/mL (10.0-20.0); Potassium 4.6 meq/L (3.5-5.1)
[2018-09-15] MEDS: PHENobarbital Inj 130 MG/ML Vial IV.PUSH SCH ×3 (06:16→22:02)
[2018-09-15] MEDS: Heparin - SQ 10,000 UNITS/ML Vial SQ SCH ×3 (06:16→22:02)
[2018-09-15] MEDS: Fosphenytoin Inj 130 MGPE in Sodium Chlor 0.9% Inj 50 ML IV.SIG SCH ×2 (08:43→22:00)
[2018-09-15] MEDS: Magnesium Oxide 400 MG Tablet PO SCH ×2 (08:44→22:03)
[2018-09-15] MEDS: Insulin Detemir Inj 1,000 UNIT/10 ML Vial SQ SCH ×2 (08:44→20:34)
[2018-09-15] MEDS: metOLazone 5 MG Tablet PO SCH (08:44)
[2018-09-15] MEDS: Allopurinol 100 MG Tablet PO SCH (08:44)
[2018-09-15] MEDS: Metoprolol Tartrate 50 MG Tablet PO SCH ×2 (08:44→20:32)
[2018-09-15] MEDS: Famotidine PF Inj 20 MG/2 ML Vial IV.PUSH SCH ×2 (08:45→20:33)
[2018-09-15] MEDS: Senna/Docusate Sodium 8.6/50 MG Tablet PO SCH ×2 (08:46→20:31)
[2018-09-15] MEDS: Chlorhexidine 0.12% Oral Kit 15 ML UDC OROPHARYNG SCH ×2 (08:46→20:34)
[2018-09-15] MEDS: Beneprotein Powder Packet G-TUBE SCH ×3 (08:51→17:09)
[2018-09-15] MEDS: Lacosamide Inj 100 MG in Sodium Chlor 0.9% Inj 100 ML IV.SIG SCH ×2 (10:24→22:01)
--- NOTE | 2018-09-15 10:34 | P.PNCC ---
Subjective Subjective Remarks/Hospital Course: 69-year-old male with a history of recent ICH, and seizure disorder presents from home after he was seizing. Called paramedics arrived to find him seizing in the setting they gave him 2 of Versed to break his seizure after they establish IV access patient then in route has another seizure and they gave him 2 more Versed. The patient was a postictal voiding episode and became in respiratory distress needed to be intubated by the paramedics. They intubated him and arrived to emergency department sedated intubated and possibly seizing with contraction of the right hand. He was started on a propofol drip to keep him sedated as well as seizure-free and he has been admitted to the ICU. 09/07: No more seizure activity. Weaned to propofol 5 mics per kilogram per minute. AED restarted. CAT scan shows diminished size of left frontal lobe hematoma compared to prior study. 09/08: No more obvious seizure activity. Patient withdraws limbs aside from left foot. He grimaces to noxious stimulation. Breathes spontaneously over the ventilator. We need to confirm that he is indeed stopped seizing. Cerebyx added to Keppra. 09/09: Focus of left frontal intermittent seizure activity persists on 09/08. Still on Versed drip infusion and mechanical ventilation. Neurology service continues to adjust AED regimen. MRI yesterday without other significant injury aside from the known left frontal hematoma. 09/10: Focal area of intermittent seizure frontal lobe persisted yesterday on EEG. AED doses being adjusted. Urine output marginal, will reinstitute loop diuretic along with metolazone. Underlying cardiac function impaired at baseline with severe mitral and tricuspid regurgitation along with pulmonary hypertension as expected. Most recent echo is about a month ago. 09/11: Continued left fronto temporal seizure activity despite 3 AEDs. Juxtaposition of this 2 cm maturing left frontal lobe hematoma to the seizure activity is probably not coincidental. I have discussed with the family the concept of excising the mature hematoma in an attempt to attenuate the seizure activity. 09/12: Patient required versed yesterday for elevated airway pressures possibly related to seizure activity. No problems after Versed bolus and restarted. Plan is for resection of the seizure substrate in the left frontal lobe today. 09/13: Status post resection of left frontal lobe hemorrhagic mass yesterday. Return from OR on mechanical ventilation. Stable hemodynamics. Patient remains neurologically unstable with refractory seizures for which he underwent mass resection. 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 All sedation was stopped late Saturday and we are waiting for the gentleman to wake up. By cardiac echo obtained during his last admission he has both severe mitral and tricuspid regurgitation. He tends to retain fluid and is been chronically on Bumex 2 mg and metolazone 5 mg daily. Renal function tests indicate a prerenal type azotemia. It is unlikely that this represents too little intravascular volume because his weight is up and he has peripheral edema in his lower extremities. I have added albumin in an attempt to mobilize some fluid. Fortunately gas exchange has been good. 09/15: off sedation x 48h. still not following commands. very poor neuro exam. GCS 3. ? weak flicker of movement in the right upper extremity (unclear if posturing or withdraw) and slight grimace to painful stimuli. otherwise, no movement in any extremity. +cough. + corneals. pupils 2mm equal and reactive. EEG ordered. Objective Vital Signs / I&O: Vital Signs 09/14/18 10:59 09/14/18 11:00 09/14/18 11:30 Temperature Pulse Rate 87 85 86 Respiratory Rate 14 20 16 Blood Pressure 110/58 L 112/69 Pulse Oximetry 100 100 99 09/14/18 11:38 09/14/18 12:00 09/14/18 12:30 Temperature 36.8 C Pulse Rate 90 94 H Respiratory Rate 16 17 17 Blood Pressure 124/80 128/69 Pulse Oximetry 99 99 98 09/14/18 14:00 09/14/18 16:00 09/14/18 16:15 Temperature 36.8 C Pulse Rate 96 H 88 Respiratory Rate 18 19 Blood Pressure 119/65 Pulse Oximetry 98 09/14/18 18:00 09/14/18 20:00 09/14/18 20:34 Temperature 37.6 C H Pulse Rate 96 H 88 Respiratory Rate 15 21 Blood Pressure 125/68 Pulse Oximetry 97 97 09/14/18 22:00 09/15/18 00:00 09/15/18 00:15 Temperature 36.8 C Pulse Rate 90 92 H Respiratory Rate 16 16 Blood Pressure 123/72 Pulse Oximetry 96 96 09/15/18 02:00 09/15/18 03:26 09/15/18 04:00 Temperature 36.8 C Pulse Rate 94 H 88 Respiratory Rate 17 16 Blood Pressure 128/61 Pulse Oximetry 98 97 09/15/18 06:00 09/15/18 07:47 Temperature Pulse Rate 86 Respiratory Rate 18 Blood Pressure Pulse Oximetry 98 Intake & Output 09/14/18 09/15/18 09/15/18 18:59 06:59 18:59 Intake Total 1813.6 / 1813.6 2315.6 / 2315.6 Output Total 825 / 825 1265 / 1265 Balance 988.6 / 988.6 1050.6 / 1050.6 Weight 105.3 kg Intake: IV 477.6 / 477.6 1477.6 / 1477.6 NS Inj 1,000 ML @ 84 mls/hr IV. 1000 / 1000 CONT .[id number] [facility] Rx#:[id number] Flexbumin 25% Inj 100 ML @ 60 100 / 100 100 / 100 mls/hr IV.SIG Q12H [facility] Rx#: [id number] Cerebyx Inj 130 MGPE In NS Inj 52.6 / 52.6 52.6 / 52.6 50 ML @ 216 mls/hr IV.SIG Q12HR [facility] Rx#:[id number] Vimpat Inj 100 MG In NS Inj 100 110 / 110 110 / 110 ML @ 110 mls/hr IV.SIG Q12HR [facility] Rx#:[id number] Depacon Inj 750 MG In NS Inj 215.0 / 215.0 215.0 / 215.0 100 ML @ 105 mls/hr IV.SIG Q8H [facility] Rx#:[id number] Tube Feeding 736 / 736 598 / 598 Tube Irrigant 600 / 600 240 / 240 Output: Stool 100 / 100 325 / 325 Urine Amount (Catheter) 700 / 700 900 / 900 Indwelling Temp Sensing 700 / 700 900 / 900 Catheter Wound Drainage 40 / 40 # 1 Left Head Other: Date of Last Bowel Movement 09/14/18 09/15/18 Result Diagrams: 09/13/18 05:30 09/15/18 04:00 Objective Remarks: gen: elderly male, lying in bed, encephalopathic. heent: pupils 2mm, equal, reactive. dressings c/d/i. neck: no jvd. trachea midline. chest: PRVC. equal chest rise. fio2 40% cv: normal rate, regular rhythm. sinus. abd: soft, nontender, nondistended. no guarding. extr: no edema. distal pulses 2+. neuro: GCS 3. RASS -4/-5. very weak flicker of movement 1/5 in right upper extremity- unclear if posturing or withdraw. no movement in the other extremities to deep nailbed pressure or stimulation. weak grimace to painful stimuli. +cough. +corneals. Assessment and Plan - Assessment and Plan Plan: Assessment: 77yM presented in status epilepticus with frontal mass now s/p craniotomy and mass resection with persistently very poor neurologic exam. agree with EEG today. will likely need repeat neuro imaging, but will leave timing of this up to neurosurgery. very critically ill today, off pathway, with persistently dense encephalopathy. Neuro: Status Epilepticus Left frontal intraparenchymal ICH s/p left craniectomy and mass resection Severe acute encephalopathy -IV Keppra -repeat EEG today -off sedation x 48h. -Neurology consulted. -Neurosurgery consulted. -Cerebyx added 09/07 -Phenobarbital added -Left frontal focus of intermittent seizures persists 09/08, 09/10, 09/11 -Plan resection of seizure substrate and left frontal lobe -> 09/12 - ICH Old from beginning of August -Decreasing in size Resp: Acute hypoxic and hypercarbic Respiratory failure -Attempt to wean and extubate when seizure-free -No sbt while mental status is poor. -Vent bundle -DuoNeb's as needed CV: Atrial fibrillation Severe mitral and tricuspid regurgitation Pulmonary hypertension Dyslipidemia Hypertension -Metoprolol -Hold anticoagulation due to recent ICH -Bumex 1 mg IV daily, continue metolazone -albumin twice daily to mobilize peripheral edema -Azotemia worrisome but may need to return to Bumex 2 mg/day -Pravastatin -Metolazone -Metoprolol, and for A. fib rate control Renal: d/c bishop FEN/GI: Acute protein calorie malnutrition- moderate tube feeds ICU electrolyte protocol daily bmp, mg, phos send pre-albumin Heme/ID: C. difficile infection -Patient received vancomycin and Zosyn during hospital admission October 2 and was discharged on Levaquin. -Diarrheal stool noticed day 3, antigen and toxin positive -Oral vancomycin 250 4 times daily started 09/09 Endocrine: Diabetes -Insulin sliding scale -Made more difficult by Decadron, initiated Levemir 6 units subcu twice daily, continue sliding scale correction DVT GI prophylaxis -Teds SCDs -Subcu heparin -Pepcid Overall impression: This gentleman is critically ill having sustained seizures which required intubation and mechanical ventilation for control. We are unable to wean him from the ventilator at this time. Intermittent nonconvulsive seizures were documented multiple times by EEG. Remains critically ill and neurologically unstable. Episodic seizure activity persists in the left frontal lobe. Critical care 44 minutes aside from procedures.
[2018-09-15] MEDS: Albumin Human 25% Inj 100 ML IV.SIG SCH ×2 (12:17→22:03)
--- NOTE | 2018-09-15 16:10 | P.DIET ---
Nutritional Evaluation Type of nutrition evaluation: follow-up Nutrition consult regarding: Tube Feeding Objective - Diagnosis Respiratory Failure, Seizure - Objective [place] body weight: 84 kg % IBW: 113 Body Weight Used for Calculations: IBW Energy Needs - Lower Range (kCal/kg): 25 Energy Needs - Upper Range (kCal/kg): 30 Lower Limit kCal/kg (kCals): 2,100 Upper Limit kCal/kg (kCals): 2,520 Lower Limit Protein Factor (Grams per Kg): 1.2 Upper Limit Protein Factor (Grams per Kg): 1.4 Lower Protein Needs (Protein): 102 Upper Protein Needs (Protein): 118 Dietitian Reviewed in Medical Record: Curent medications, Intake & Output, Labs , Medical history, Tube feeding Diet Order: NPO Assessment Assessment: Pt remains at nutritional risk r/t dx and need for a TF for nutrition support. Currently receiving Glucerna 1.5 with goal rate 55ml/hr per MD. Recommend increase rate to 60 mls/hr to provide 2160 kcals, 119 gms protein and 1093 mls of free water. Labs, wts and clinical course reviewed. Recommendations: Glucerna 1.5 with goal rate 60ml/hr Dietitian to Monitor: Lab values, Intake & Output, Tube feeding tolerance, Weight change, Medical course
--- NOTE | 2018-09-15 16:30 | P.PNNS ---
Subjective Interval history: intubated, no sedation. ?slight eye opening. minimal output from CHRISTINA drain. Physical Exam Vital signs: Vital Signs 09/14/18 18:00 09/14/18 20:00 09/14/18 20:34 Temperature 99.7 F H Pulse Rate 96 H 88 Respiratory Rate 15 21 Blood Pressure 125/68 Pulse Oximetry 97 97 09/14/18 22:00 09/15/18 00:00 09/15/18 00:15 Temperature 98.3 F Pulse Rate 90 92 H Respiratory Rate 16 16 Blood Pressure 123/72 Pulse Oximetry 96 96 09/15/18 02:00 09/15/18 03:26 09/15/18 04:00 Temperature 98.3 F Pulse Rate 94 H 88 Respiratory Rate 17 16 Blood Pressure 128/61 Pulse Oximetry 98 97 09/15/18 06:00 09/15/18 07:47 09/15/18 08:00 Temperature 97.7 F Pulse Rate 86 86 Respiratory Rate 18 18 Blood Pressure 116/61 Pulse Oximetry 98 97 09/15/18 10:00 09/15/18 11:11 09/15/18 12:00 Temperature 97.5 F L Pulse Rate 104 H 92 H Respiratory Rate 17 16 Blood Pressure 118/69 Pulse Oximetry 98 97 09/15/18 14:00 09/15/18 16:00 Temperature 98.5 F Pulse Rate 96 H 94 H Respiratory Rate 17 Blood Pressure 126/69 Pulse Oximetry 97 Intake & Output 09/14/18 09/15/18 09/15/18 18:59 06:59 18:59 Intake Total 1813.6 / 1813.6 2315.6 / 2315.6 270.1 / 270.1 Output Total 825 / 825 1265 / 1265 Balance 988.6 / 988.6 1050.6 / 1050.6 270.1 / 270.1 Weight 105.3 kg Intake: IV 477.6 / 477.6 1477.6 / 1477.6 270.1 / 270.1 NS Inj 1,000 ML @ 84 mls/hr IV. 1000 / 1000 CONT .[id number] MAGALY Rx#:[id number] Flexbumin 25% Inj 100 ML @ 60 100 / 100 100 / 100 mls/hr IV.SIG Q12H MAGALY Rx#: [id number] Cerebyx Inj 130 MGPE In NS Inj 52.6 / 52.6 52.6 / 52.6 52.6 / 52.6 50 ML @ 216 mls/hr IV.SIG Q12HR MAGALY Rx#:[id number] Vimpat Inj 100 MG In NS Inj 100 110 / 110 110 / 110 110 / 110 ML @ 110 mls/hr IV.SIG Q12HR MAGALY Rx#:[id number] Depacon Inj 750 MG In NS Inj 215.0 / 215.0 215.0 / 215.0 107.5 / 107.5 100 ML @ 105 mls/hr IV.SIG Q8H MAGALY Rx#:[id number] Tube Feeding 736 / 736 598 / 598 Tube Irrigant 600 / 600 240 / 240 Output: Stool 100 / 100 325 / 325 Urine Amount (Catheter) 700 / 700 900 / 900 Indwelling Temp Sensing 700 / 700 900 / 900 Catheter Wound Drainage 40 / 40 # 1 Left Head 40 / 40 Other: Date of Last Bowel Movement 09/14/18 09/15/18 09/15/18 Narrative: pupils equal left wound clean and dry healing well, CHRISTINA drain with minimal drainage ?slight eye opening, but not focusing or following commands no purposeful movements seen - Urinary Catheter Management Indwelling Urethral Catheter Cath placed during this visit: yes, but has since been removed by the nurse Reason for continuing: Decision to DC catheter Insertion date: 09/06/18 Insertion time: 23:00 Removal date: 09/08/18 Removal time: 18:21 Straight Cath placed during this visit: yes, but has since been removed by the nurse Reason for continuing: Decision to DC catheter Insertion date: 09/09/18 Insertion time: 02:20 Removal date: 09/10/18 Removal time: 12:00 Indwelling Temp Sensing Catheter Cath placed during this visit: yes Reason for continuing: Acute urinary retention Insertion date: 09/12/18 Insertion time: 15:30 Assessment and Plan - Plan 77yoM with intractable seizures s/p craniotomy 09/12 ([facility]) for resection of hemorrhagic seizure focus. CT stable post op Neuro checks, f/u EEG cont Anti seizure medication, neuro following Christina drain dc'ed, steri-strips placed Dr. Remy dw family in room
--- NOTE | 2018-09-15 18:09 | ECG ---
Date Performed: 09/12/2018 Time Performed: 00:54:34 PTAGE: 77 years EKG: Atrial fibrillation with rapid ventricular response --- Suggests dextrocardia --- Abnormal ECG PREVIOUS TRACING : 09/07/2018 06.01 Since the previous tracing, no significant change noted DOCTOR: Benjamin Gandara Interpretating Date/Time 09/15/2018 18:07:47
--- NOTE | 2018-09-15 20:38 | MG ---
cc: Love Goldman MD,Orlando Mata MD ELECTROENCEPHALOGRAM NUMBER: [id number] REFERRING PHYSICIAN: Orlando Remy MD CLINICAL HISTORY: Intubated. No sedation since 09/12/2018. Unresponsive. Photic done. No withdrawal on all 4 extremities when given stimuli. Last EEG on 09/13/2018 showed left frontal discharges, somewhat epileptiform. This is a repeat study. History of right frontal craniotomy and evacuation of hematoma. Found having a seizure. Given some Versed. Postictal. History of atrial fibrillation, diabetes. On phenobarbital, Vimpat, Cerebyx and Depakote. DESCRIPTION OF RECORD: It does have some higher waves noted over the left hemisphere and this may be due to the craniotomy. This looks possibly breach-like. Certainly can be epileptiform. There is phase reversal seen at epoch 34, FP1, F7 and T3. The rest of the EEG is attenuated. Overall, it is a 2-3 Hz pattern. There is quite a bit artifact at times. EKG portion looks like there may be atrial fibrillation. Photic stimulation, no significant driving response. IMPRESSION: Abnormal electroencephalogram due to moderate slowing of background. No change with stimulation. Higher amplitude waves are seen over the left frontal region and may be a breach-type rhythm from the craniotomy versus possible sharps. Clinical correlation. MD DAVE Gomez/david , 08:19 PM , 08:26 PM
[2018-09-16] MEDS: dilTIAZem 30 MG Tablet PO SCH ×4 (01:54→20:29)
[2018-09-16] MEDS: Oral Hygiene Kit OROPHARYNG SCH ×4 (03:18→23:50)
[2018-09-16] MEDS: Valproate Inj 750 MG in Sodium Chlor 0.9% Inj 100 ML IV.SIG SCH ×3 (03:18→20:29)
[2018-09-16] MEDS: Insulin NovoLOG Aspart Correctional Sugar Inj SQ SCH ×4 (05:48→23:49)
[2018-09-16] MEDS: PHENobarbital Inj 130 MG/ML Vial IV.PUSH SCH ×3 (05:48→20:28)
[2018-09-16] MEDS: Heparin - SQ 10,000 UNITS/ML Vial SQ SCH ×3 (05:48→21:09)
[2018-09-16 05:55] LABS: Hematocrit 28.8 % (39.0-51.0); Hemoglobin 9.2 gm/dL (13.0-17.0); Mean Corpuscular HGB Conc 32.1 % (32.0-36.0); Mean Corpuscular Hemoglobin 34.6 pg (27.0-34.0); Mean Corpuscular Volume 107.9 fL (80.0-100.0); Mean Platelet Volume 9.4 fL (7.0-11.0); Platelet Count 171 th/mm3 (150-450); Red Blood Count 2.67 mil/mm3 (4.50-5.90); Red Cell Distribution Width 16.9 % (11.6-17.2); White Blood Count 11.9 th/mm3 (4.0-11.0)
[2018-09-16 06:07] LABS: Carbon Dioxide 26.3 meq/L (21.0-32.0); Magnesium 2.5 mg/dL (1.5-2.5); Potassium 4.9 meq/L (3.5-5.1)
[2018-09-16 06:11] LABS: Phosphorus 3.1 mg/dL (2.5-4.9)
[2018-09-16] MEDS: Chlorhexidine 0.12% Oral Kit 15 ML UDC OROPHARYNG SCH ×2 (09:14→20:30)
[2018-09-16] MEDS: Beneprotein Powder Packet G-TUBE SCH ×3 (09:15→17:06)
[2018-09-16] MEDS: Insulin Detemir Inj 1,000 UNIT/10 ML Vial SQ SCH ×2 (09:15→20:29)
[2018-09-16] MEDS: Metoprolol Tartrate 50 MG Tablet PO SCH ×2 (09:16→20:29)
[2018-09-16] MEDS: Magnesium Oxide 400 MG Tablet PO SCH ×2 (09:16→20:29)
[2018-09-16] MEDS: Senna/Docusate Sodium 8.6/50 MG Tablet PO SCH ×2 (09:17→20:30)
[2018-09-16] MEDS: Famotidine PF Inj 20 MG/2 ML Vial IV.PUSH SCH ×2 (09:17→20:27)
[2018-09-16] MEDS: metOLazone 5 MG Tablet PO SCH (09:18)
[2018-09-16] MEDS: Lacosamide Inj 100 MG in Sodium Chlor 0.9% Inj 100 ML IV.SIG SCH ×2 (09:18→20:31)
[2018-09-16] MEDS: Allopurinol 100 MG Tablet PO SCH (09:18)
[2018-09-16] MEDS: Albumin Human 25% Inj 100 ML IV.SIG SCH ×2 (09:19→21:09)
[2018-09-16] MEDS: Fosphenytoin Inj 130 MGPE in Sodium Chlor 0.9% Inj 50 ML IV.SIG SCH ×2 (09:23→21:09)
--- NOTE | 2018-09-16 10:48 | P.PNCC ---
Subjective Subjective Remarks/Hospital Course: 69-year-old male with a history of recent ICH, and seizure disorder presents from home after he was seizing. Called paramedics arrived to find him seizing in the setting they gave him 2 of Versed to break his seizure after they establish IV access patient then in route has another seizure and they gave him 2 more Versed. The patient was a postictal voiding episode and became in respiratory distress needed to be intubated by the paramedics. They intubated him and arrived to emergency department sedated intubated and possibly seizing with contraction of the right hand. He was started on a propofol drip to keep him sedated as well as seizure-free and he has been admitted to the ICU. 09/07: No more seizure activity. Weaned to propofol 5 mics per kilogram per minute. AED restarted. CAT scan shows diminished size of left frontal lobe hematoma compared to prior study. 09/08: No more obvious seizure activity. Patient withdraws limbs aside from left foot. He grimaces to noxious stimulation. Breathes spontaneously over the ventilator. We need to confirm that he is indeed stopped seizing. Cerebyx added to Keppra. 09/09: Focus of left frontal intermittent seizure activity persists on 09/08. Still on Versed drip infusion and mechanical ventilation. Neurology service continues to adjust AED regimen. MRI yesterday without other significant injury aside from the known left frontal hematoma. 09/10: Focal area of intermittent seizure frontal lobe persisted yesterday on EEG. AED doses being adjusted. Urine output marginal, will reinstitute loop diuretic along with metolazone. Underlying cardiac function impaired at baseline with severe mitral and tricuspid regurgitation along with pulmonary hypertension as expected. Most recent echo is about a month ago. 09/11: Continued left fronto temporal seizure activity despite 3 AEDs. Juxtaposition of this 2 cm maturing left frontal lobe hematoma to the seizure activity is probably not coincidental. I have discussed with the family the concept of excising the mature hematoma in an attempt to attenuate the seizure activity. 09/12: Patient required versed yesterday for elevated airway pressures possibly related to seizure activity. No problems after Versed bolus and restarted. Plan is for resection of the seizure substrate in the left frontal lobe today. 09/13: Status post resection of left frontal lobe hemorrhagic mass yesterday. Return from OR on mechanical ventilation. Stable hemodynamics. Patient remains neurologically unstable with refractory seizures for which he underwent mass resection. 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 All sedation was stopped late Saturday and we are waiting for the gentleman to wake up. By cardiac echo obtained during his last admission he has both severe mitral and tricuspid regurgitation. He tends to retain fluid and is been chronically on Bumex 2 mg and metolazone 5 mg daily. Renal function tests indicate a prerenal type azotemia. It is unlikely that this represents too little intravascular volume because his weight is up and he has peripheral edema in his lower extremities. I have added albumin in an attempt to mobilize some fluid. Fortunately gas exchange has been good. 09/15: off sedation x 48h. still not following commands. very poor neuro exam. GCS 3. ? weak flicker of movement in the right upper extremity (unclear if posturing or withdraw) and slight grimace to painful stimuli. otherwise, no movement in any extremity. +cough. + corneals. pupils 2mm equal and reactive. EEG ordered. 09/16: remains off sedation for days. now worsening exam: no grimace at all to painful stimuli. GCS remains 3. EEG persistently poor, but no overt seizures. MRI ordered today without new ischemic area. anti-epileptic levels therapeutic. discussed with Dr. Bonilla: if no improvements by the end of the week, prognosis is grim at best. discussed this together at length with the family. states she does knows that he would not want trach/peg and would not want to live if he was not awake and off machines. Objective Vital Signs / I&O: Vital Signs 09/15/18 10:49 09/15/18 11:00 09/15/18 11:11 Temperature Pulse Rate 99 H 104 H Respiratory Rate 16 15 17 Blood Pressure 115/72 120/68 Pulse Oximetry 98 98 98 09/15/18 11:30 09/15/18 12:00 09/15/18 12:30 Temperature 36.4 C L Pulse Rate 93 H 96 H 96 H Respiratory Rate 16 16 21 Blood Pressure 120/62 118/69 118/64 Pulse Oximetry 98 98 97 09/15/18 13:00 09/15/18 13:30 09/15/18 14:00 Temperature Pulse Rate 98 H 90 104 H Respiratory Rate 19 17 16 Blood Pressure 116/62 109/55 L 110/60 Pulse Oximetry 98 97 98 09/15/18 14:30 09/15/18 15:00 09/15/18 15:30 Temperature Pulse Rate 103 H 92 H 98 H Respiratory Rate 16 17 18 Blood Pressure 110/61 123/68 126/69 Pulse Oximetry 98 99 99 09/15/18 16:00 09/15/18 16:30 09/15/18 16:46 Temperature 36.9 C Pulse Rate 98 H 101 H Respiratory Rate 17 18 18 Blood Pressure 126/69 131/68 Pulse Oximetry 99 98 98 09/15/18 17:00 09/15/18 17:30 09/15/18 18:00 Temperature Pulse Rate 100 H 94 H 107 H Respiratory Rate 18 17 16 Blood Pressure 122/65 115/59 L 110/57 L Pulse Oximetry 98 98 98 09/15/18 18:30 09/15/18 19:00 09/15/18 19:30 Temperature Pulse Rate 100 H 100 H 108 H Respiratory Rate 16 16 14 Blood Pressure 111/57 L 110/57 L 110/58 L Pulse Oximetry 98 98 98 09/15/18 20:00 09/15/18 20:30 09/15/18 21:00 Temperature 37.0 C Pulse Rate 108 H 99 H 99 H Respiratory Rate 14 15 19 Blood Pressure 107/57 L 112/60 119/66 Pulse Oximetry 98 98 98 09/15/18 21:30 09/15/18 22:00 09/15/18 22:11 Temperature Pulse Rate 96 H 101 H Respiratory Rate 14 15 15 Blood Pressure 119/57 L 113/67 Pulse Oximetry 98 99 98 09/15/18 22:30 09/15/18 23:00 09/15/18 23:30 Temperature Pulse Rate 108 H 106 H 104 H Respiratory Rate 17 15 15 Blood Pressure 115/67 116/64 118/65 Pulse Oximetry 98 98 97 09/16/18 00:00 09/16/18 00:30 09/16/18 01:00 Temperature 37.0 C Pulse Rate 100 H 97 H 94 H Respiratory Rate 13 15 16 Blood Pressure 110/64 114/63 119/63 Pulse Oximetry 98 99 99 09/16/18 01:03 09/16/18 01:30 09/16/18 02:00 Temperature Pulse Rate 98 H 89 Respiratory Rate 15 17 15 Blood Pressure 124/71 128/61 Pulse Oximetry 98 97 95 09/16/18 02:30 09/16/18 02:32 09/16/18 03:00 Temperature Pulse Rate 87 89 93 H Respiratory Rate 17 16 17 Blood Pressure 112/57 L 112/56 L 119/65 Pulse Oximetry 94 L 94 L 94 L 09/16/18 03:39 09/16/18 04:00 09/16/18 04:14 Temperature 37.3 C Pulse Rate 105 H 93 H Respiratory Rate 24 16 17 Blood Pressure 130/64 130/70 Pulse Oximetry 99 99 09/16/18 04:30 09/16/18 05:00 09/16/18 06:00 Temperature Pulse Rate 97 H 88 92 H Respiratory Rate 15 15 Blood Pressure 123/67 129/67 Pulse Oximetry 99 100 09/16/18 07:34 09/16/18 08:00 09/16/18 10:00 Temperature 37.0 C Pulse Rate 98 H 93 H Respiratory Rate 16 21 Blood Pressure 102/63 Pulse Oximetry 97 100 Intake & Output 09/15/18 09/16/18 09/16/18 18:59 06:59 18:59 Intake Total 1049.1 / 1049.1 1051.6 / 1051.6 162.6 / 162.6 Output Total 870 / 870 1250 / 1250 Balance 179.1 / 179.1 -198.4 / -198.4 162.6 / 162.6 Weight 103.3 kg Intake: IV 370.1 / 370.1 477.6 / 477.6 162.6 / 162.6 Flexbumin 25% Inj 100 ML @ 60 100 / 100 100 / 100 mls/hr IV.SIG Q12H MAGALY Rx#: [id number] Cerebyx Inj 130 MGPE In NS Inj 52.6 / 52.6 52.6 / 52.6 52.6 / 52.6 50 ML @ 216 mls/hr IV.SIG Q12HR MAGALY Rx#:[id number] Vimpat Inj 100 MG In NS Inj 100 110 / 110 110 / 110 110 / 110 ML @ 110 mls/hr IV.SIG Q12HR MAGALY Rx#:[id number] Depacon Inj 750 MG In NS Inj 107.5 / 107.5 215.0 / 215.0 100 ML @ 105 mls/hr IV.SIG Q8H MAGALY Rx#:[id number] Tube Feeding 679 / 679 574 / 574 Output: Stool 400 / 400 Urine Amount (Catheter) 850 / 850 850 / 850 Indwelling Temp Sensing 850 / 850 850 / 850 Catheter Wound Drainage # 1 Left Head Other: Date of Last Bowel Movement 09/15/18 09/15/18 09/15/18 Result Diagrams: 09/16/18 04:47 09/16/18 04:47 Objective Remarks: gen: elderly male, lying in bed, encephalopathic. heent: pupils 2mm, equal, reactive. dressings c/d/i. neck: no jvd. trachea midline. chest: PRVC. equal chest rise. fio2 40% cv: normal rate, regular rhythm. sinus. abd: soft, nontender, nondistended. no guarding. extr: no edema. distal pulses 2+. neuro: GCS 3. RASS -5. no movement at all today to deep stimulation. Assessment and Plan - Assessment and Plan Plan: Assessment: 77yM presented in status epilepticus with frontal mass now s/p craniotomy and mass resection with persistently very poor neurologic exam. MRI today. remains critically ill today, off pathway, with persistently dense encephalopathy. the longer we go without neurologic improvement, the more grim the prognosis. Recommend waiting until the end of the week, but then will likely need to get palliative care involved if no improvements. 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 -Neurology consulted. -Neurosurgery consulted. -Cerebyx added 09/07 -Phenobarbital added -Left frontal focus of intermittent seizures persists 09/08, 09/10, 09/11. improving eeg 09/15 -Plan resection of seizure substrate and left frontal lobe -> 09/12 - ICH Old from beginning of August -Decreasing in size Resp: Acute hypoxic and hypercarbic Respiratory failure- persistent -Attempt to wean and extubate when seizure-free -No sbt while mental status is poor. -Vent bundle -DuoNeb's as needed CV: Atrial fibrillation Severe mitral and tricuspid regurgitation Pulmonary hypertension Dyslipidemia Hypertension -Metoprolol -Hold anticoagulation due to recent ICH -increase Bumex 1 mg IV BID, continue metolazone -albumin twice daily to mobilize peripheral edema -Azotemia worrisome. -Pravastatin -Metolazone -Metoprolol, and for A. fib rate control Renal: d/c bishop FEN/GI: Acute protein calorie malnutrition- severe tube feeds ICU electrolyte protocol daily bmp, mg, phos send pre-albumin Heme/ID: C. difficile infection -Patient received vancomycin and Zosyn during hospital admission August 19 and was discharged on Levaquin. -Diarrheal stool noticed day 3, antigen and toxin positive -Oral vancomycin 250 4 times daily started 09/09 Endocrine: Diabetes -Insulin sliding scale -Made more difficult by Decadron, initiated Levemir 6 units subcu twice daily, continue sliding scale correction DVT GI prophylaxis -Teds SCDs -Subcu heparin -Pepcid Overall impression: This gentleman is critically ill having sustained seizures which required intubation and mechanical ventilation for control. We are unable to wean him from the ventilator at this time. Intermittent nonconvulsive seizures were documented multiple times by EEG. Remains critically ill and neurologically unstable. Episodic seizure activity persists in the left frontal lobe. Critical care 39 minutes aside from procedures.
--- NOTE | 2018-09-16 11:51 | MR ---
EXAM DATE: 09/16/2018 11:42 AM EDT AGE/SEX: 77 years / Male INDICATIONS: Stroke. CLINICAL DATA: This is the patient's subsequent encounter. Patient reports that signs and symptoms h ave been present for 2 weeks and indicates a pain score of Nonresponsive. MEDICAL/SURGICAL HISTORY: Diabetes mellitus type II. CABG. ICD placement. COMPARISON: No prior exams available for comparison. TECHNIQUE: Multiplanar, multisequence examination of the brain was performed without contrast. FINDINGS: Cerebrum: Postsurgical changes left frontal lobe with minimal residual hemorrhage. There is some mini mal adjacent vasogenic edema and mild mass effect but no midline shift. Ventricles remain patent and mildly prominent consistent with atrophy. The ventricles are normal for age. No extraaxial fluid co llections are seen. The pituitary gland and suprasellar cistern are normal in configuration. White Matter: No significant signal abnormalities are seen in the white matter. Posterior Fossa: The cerebellum and brainstem are intact. Old left cerebellar infarct. The 4th ventr icle is midline. The cerebellopontine angle is unremarkable. The cerebellar tonsils are normal in p osition. Diffusion Imaging: No focal areas of restricted diffusion are seen. No evidence of acute infarction . Extracranial: The visualized portions of the orbits and paranasal sinuses are unremarkable. CONCLUSION: 1. Postsurgical changes left frontal lobe with minimal basilar edema and minimal residual hemorrhage . 2. No midline shift or mass effect. 3. Cerebral atrophy. 4. No acute infarction. 5. Old left cerebellar infarct. Electronically signed by: Stefano Echeverria MD 09/16/2018 11:50 AM EDT
--- NOTE | 2018-09-16 16:34 | P.PNNEU ---
Subjective Subjective Comments: No acute events Active Medications: Active Medications Acetaminophen (Tylenol) 650 mg PO Q6H PRN PRN Reason: FOR FEVER >101F Last Admin: 09/11/18 19:57 Dose: 650 mg Al Hydroxide/Mg Hydroxide (Milk Of Magnbreanne Liq) 30 ml PO Q12H PRN PRN Reason: Mild Constipation Albuterol (Duoneb Neb (Prn)) 1 ampul NEB Q2HR NEB PRN PRN Reason: WHEEZING Last Admin: 09/11/18 20:59 Dose: 1 ampul Allopurinol (Zyloprim) 100 mg PO DAILY [facility] Last Admin: 09/16/18 09:18 Dose: 100 mg Bisacodyl (Dulcolax Supp) 10 mg RECTAL DAILY PRN PRN Reason: SEVERE CONSITIPATION Bumetanide (Bumex Inj) 1 mg IV.PUSH BID@0900,1800 [facility] Chlorhexidine Gluconate (Peridex 0.12% Oral Kit) 15 ml OROPHARYNG BID@0800, 2000 [facility] Last Admin: 09/16/18 09:14 Dose: 15 ml Dexamethasone Sodium Phosphate (Decadron Inj) 4 mg IV.PUSH Q6H [facility] Last Admin: 09/16/18 13:44 Dose: 4 mg Dextrose (D50w Vial) 50 ml IV.PUSH UNSCH PRN PRN Reason: PER HYPOGLYCEMIA PROTOCOL Diltiazem HCl (Cardizem Cd 24hr) 120 mg PO DAILY [facility] Last Admin: 09/07/18 12:00 Dose: Not Given Diltiazem HCl (Cardizem) 30 mg PO Q6H [facility] Last Admin: 09/16/18 13:44 Dose: 30 mg Famotidine (Pepcid Pf Inj) 10 mg IV.PUSH Q12HR [facility] Last Admin: 09/16/18 09:17 Dose: 10 mg Glucagon (Glucagon Inj) 1 mg OTHER PRN PRN PRN Reason: for Hypoglycemia Protocol Heparin Sodium (Porcine) (Heparin Inj) 5,000 units SQ Q8HR [facility] Last Admin: 09/16/18 13:44 Dose: 5,000 units Lacosamide 100 mg/ Sodium (Chloride) 110 mls @ 110 mls/hr IV.SIG Q12HR [facility] Last Infusion: 09/16/18 10:23 Dose: Infused Fosphenytoin Sodium 130 mgpe/ (Sodium Chloride) 52.6 mls @ 216 mls/hr IV.SIG Q12HR [facility] Last Infusion: 09/16/18 10:22 Dose: Infused Valproate Sodium 750 mg/ (Sodium Chloride) 107.5 mls @ 105 mls/hr IV.SIG Q8H [facility] Last Admin: 09/16/18 12:40 Dose: 105 mls/hr Cefazolin Sodium/Dextrose (Ancef 2 Gm Premix Inj) 2 gm in 50 mls @ 100 mls/hr IV.SIG [employer] PRN PRN Reason: PROCEDURE ANESTHESIA Stop: 09/16/18 16:57 Albumin Human (Flexbumin 25% Inj) 100 mls @ 60 mls/hr IV.SIG Q12H [facility] Stop: 09/16/18 23:59 Last Admin: 09/16/18 09:19 Dose: 60 mls/hr Insulin Aspart (Novolog Insulin Correctional Sugar Inj) 0 unit SQ Q6HR [facility]; Protocol Last Admin: 09/16/18 13:08 Dose: 7 unit Insulin Detemir (Levemir Inj) 6 unit SQ BID [facility] Last Admin: 09/16/18 09:15 Dose: 6 unit Lactulose (Lactulose Liq) 30 ml PO DAILY PRN PRN Reason: SEVERE CONSITIPATION Lorazepam (Ativan Inj) 1 mg IV.PUSH Q1H PRN PRN Reason: Agitation/sedation or Seizure Last Admin: 09/07/18 04:37 Dose: 1 mg Magnesium Oxide (Mag-Ox) 400 mg PO BID [facility] Last Admin: 09/16/18 09:16 Dose: 400 mg Metolazone (Zaroxolyn) 5 mg PO DAILY [facility] Last Admin: 09/16/18 09:18 Dose: 5 mg Metoprolol Tartrate (Lopressor) 50 mg PO BID [facility] Last Admin: 09/16/18 09:16 Dose: Not Given Miscellaneous Medication () 1 each OROPHARYNG 0000,0400,1200,1600 [facility] Last Admin: 09/16/18 16:08 Dose: 1 each Morphine Sulfate (Morphine Inj) 2 mg IV.PUSH Q2H PRN PRN Reason: PAIN SCALE 6 TO 10 Ondansetron HCl (Zofran Inj) 4 mg IV.PUSH Q6H PRN PRN Reason: NAUSEA OR VOMITING Phenobarbital Sodium (Luminal Inj) 120 mg IV.PUSH Q8HR [facility] Last Admin: 09/16/18 13:45 Dose: 120 mg Pravastatin Sodium (Pravachol) 40 mg PO HS [facility] Last Admin: 09/15/18 20:32 Dose: 40 mg Senna/Docusate Sodium (Janeen-Colace) 1 tab PO BID [facility] Last Admin: 09/16/18 09:17 Dose: Not Given Sennosides (Senokot) 17.2 mg PO Q12H PRN PRN Reason: Moderate Constipation Sodium Chloride (Ns Flush) 2 ml IV.FLUSH BID [facility] Last Admin: 09/16/18 09:16 Dose: 2 ml Sodium Chloride (Ns Flush) 2 ml IV.FLUSH PRN PRN PRN Reason: FLUSH AFTER USING IV ACCESS Last Admin: 09/12/18 20:57 Dose: 2 ml Sterile Water (Free Water) 200 ml G-TUBE Q6HR [facility] Last Admin: 09/16/18 12:40 Dose: 200 ml Vancomycin HCl (Vancomycin Po) 250 mg PO QID [facility] Last Admin: 09/16/18 12:41 Dose: 250 mg Whey (Beneprotein Powder) 1 packet G-TUBE TID [facility] Last Admin: 09/16/18 12:41 Dose: 1 packet Allergies/Adverse Reactions: Allergies Allergy/AdvReac Type Severity Reaction Status Date / Time digitoxin Allergy Severe Hallucinati Verified 08/19/18 15:46 ons Review of Systems unobtainable due to endotracheal tube, unobtainable due to mental status Physical Exam Vital signs: Vital Signs 09/15/18 16:30 09/15/18 16:46 09/15/18 17:00 Temperature Pulse Rate 101 H 100 H Respiratory Rate 18 18 18 Blood Pressure 131/68 122/65 Pulse Oximetry 98 98 98 09/15/18 17:30 09/15/18 18:00 09/15/18 18:30 Temperature Pulse Rate 94 H 107 H 100 H Respiratory Rate 17 16 16 Blood Pressure 115/59 L 110/57 L 111/57 L Pulse Oximetry 98 98 98 09/15/18 19:00 09/15/18 19:30 09/15/18 20:00 Temperature Pulse Rate 100 H 108 H 108 H Respiratory Rate 16 14 14 Blood Pressure 110/57 L 110/58 L 107/57 L Pulse Oximetry 98 98 98 09/15/18 20:30 09/15/18 21:00 09/15/18 21:30 Temperature 98.6 F Pulse Rate 99 H 99 H 96 H Respiratory Rate 15 19 14 Blood Pressure 112/60 119/66 119/57 L Pulse Oximetry 98 98 98 09/15/18 22:00 09/15/18 22:11 09/15/18 22:30 Temperature Pulse Rate 101 H 108 H Respiratory Rate 15 15 17 Blood Pressure 113/67 115/67 Pulse Oximetry 99 98 98 09/15/18 23:00 09/15/18 23:30 09/16/18 00:00 Temperature 98.6 F Pulse Rate 106 H 104 H 100 H Respiratory Rate 15 15 13 Blood Pressure 116/64 118/65 110/64 Pulse Oximetry 98 97 98 09/16/18 00:30 09/16/18 01:00 09/16/18 01:03 Temperature Pulse Rate 97 H 94 H Respiratory Rate 15 16 15 Blood Pressure 114/63 119/63 Pulse Oximetry 99 99 98 09/16/18 01:30 09/16/18 02:00 09/16/18 02:30 Temperature Pulse Rate 98 H 89 87 Respiratory Rate 17 15 17 Blood Pressure 124/71 128/61 112/57 L Pulse Oximetry 97 95 94 L 09/16/18 02:32 09/16/18 03:00 09/16/18 03:39 Temperature Pulse Rate 89 93 H 105 H Respiratory Rate 16 17 24 Blood Pressure 112/56 L 119/65 130/64 Pulse Oximetry 94 L 94 L 09/16/18 04:00 09/16/18 04:14 09/16/18 04:30 Temperature 99.1 F Pulse Rate 93 H 97 H Respiratory Rate 16 17 15 Blood Pressure 130/70 123/67 Pulse Oximetry 99 99 99 09/16/18 05:00 09/16/18 06:00 09/16/18 07:34 Temperature Pulse Rate 88 92 H Respiratory Rate 15 16 Blood Pressure 129/67 Pulse Oximetry 100 97 09/16/18 08:00 09/16/18 10:00 09/16/18 10:47 Temperature 98.6 F Pulse Rate 98 H 93 H Respiratory Rate 21 20 Blood Pressure 102/63 Pulse Oximetry 100 96 09/16/18 11:57 09/16/18 12:00 09/16/18 13:29 Temperature 97.8 F Pulse Rate 98 H Respiratory Rate 15 18 Blood Pressure 125/71 Pulse Oximetry 100 100 99 09/16/18 14:00 09/16/18 15:05 09/16/18 16:00 Temperature 97.9 F Pulse Rate 84 90 Respiratory Rate 20 16 Blood Pressure 113/60 Pulse Oximetry 100 100 Intake & Output 09/15/18 09/16/18 09/16/18 18:59 06:59 18:59 Intake Total 1049.1 / 1049.1 1051.6 / 1051.6 162.6 / 162.6 Output Total 870 / 870 1250 / 1250 Balance 179.1 / 179.1 -198.4 / -198.4 162.6 / 162.6 Weight 103.3 kg Intake: IV 370.1 / 370.1 477.6 / 477.6 162.6 / 162.6 Flexbumin 25% Inj 100 ML @ 60 100 / 100 100 / 100 mls/hr IV.SIG Q12H [facility] Rx#: [id number] Cerebyx Inj 130 MGPE In NS Inj 52.6 / 52.6 52.6 / 52.6 52.6 / 52.6 50 ML @ 216 mls/hr IV.SIG Q12HR [facility] Rx#:[id number] Vimpat Inj 100 MG In NS Inj 100 110 / 110 110 / 110 110 / 110 ML @ 110 mls/hr IV.SIG Q12HR [facility] Rx#:[id number] Depacon Inj 750 MG In NS Inj 107.5 / 107.5 215.0 / 215.0 100 ML @ 105 mls/hr IV.SIG Q8H [facility] Rx#:[id number] Tube Feeding 679 / 679 574 / 574 Output: Stool 400 / 400 Urine Amount (Catheter) 850 / 850 850 / 850 Indwelling Temp Sensing 850 / 850 850 / 850 Catheter Wound Drainage # 1 Left Head Other: Date of Last Bowel Movement 09/15/18 09/15/18 09/16/18 Narrative: GENERAL: in NAD, SKIN: Warm and dry. HEAD: Atraumatic. Normocephalic. EYES: Sluggishly reactive ENT: Intubated NECK: Intubated CARDIOVASCULAR: Regular rate and rhythm. RESPIRATORY: Intubated GASTROINTESTINAL: Abdomen soft, non-tender, nondistended. MUSCULOSKELETAL: No obvious deformities. Bilateral lower extremity edema NEUROLOGICAL: Intubated, coma state nonverbal not following, minimal grimace to deep tactile, OU 3/2 mm sluggishly reactive no gaze deviation, no localization PSYCHIATRIC: Intubated, calm - Constitutional no acute distress - Routine HEENT Exam Head: Present: normocephalic - Urinary Catheter Management Indwelling Urethral Catheter Cath placed during this visit: yes, but has since been removed by the nurse Reason for continuing: Decision to DC catheter Insertion date: 09/06/18 Insertion time: 23:00 Removal date: 09/08/18 Removal time: 18:21 Straight Cath placed during this visit: yes, but has since been removed by the nurse Reason for continuing: Decision to DC catheter Insertion date: 09/09/18 Insertion time: 02:20 Removal date: 09/10/18 Removal time: 12:00 Indwelling Temp Sensing Catheter Cath placed during this visit: yes Reason for continuing: Acute urinary retention Insertion date: 09/12/18 Insertion time: 15:30 Objective Laboratory Results - last 24 hr 09/15/18 09/15/18 09/16/18 17:13 23:44 04:47 WBC RBC Hgb Hct MCV MCH MCHC RDW Plt Count MPV Sodium 155 H Potassium 4.9 Chloride 120 H Carbon Dioxide 26.3 Anion Gap 9 BUN 106 H Creatinine 1.57 H Estimated GFR 43 L POC Glucose 245 H 205 H Random Glucose 194 H Calcium 9.0 Phosphorus 3.1 Magnesium 2.5 Phenytoin 12.0 Phenobarbital 32.1 09/16/18 09/16/18 09/16/18 04:47 05:34 12:51 WBC 11.9 H RBC 2.67 L Hgb 9.2 L Hct 28.8 L MCV 107.9 H MCH 34.6 H MCHC 32.1 RDW 16.9 Plt Count 171 MPV 9.4 Sodium Potassium Chloride Carbon Dioxide Anion Gap BUN Creatinine Estimated GFR POC Glucose 224 H 252 H Random Glucose Calcium Phosphorus Magnesium Phenytoin Phenobarbital Review/Management - Diagnosis (1) Localization-related (focal) (partial) symptomatic epilepsy and epileptic syndromes with complex partial seizures, intractable, with status epilepticus Code(s): G40.211 - Localization-related (focal) (partial) symptomatic epilepsy and epileptic syndromes with complex partial seizures, intractable, with status epilepticus Status: Acute Current Visit: Yes (2) Atrial fibrillation Code(s): I48.91 - Unspecified atrial fibrillation Status: Acute Current Visit: Yes (3) Acute encephalopathy Code(s): G93.40 - Encephalopathy, unspecified Status: Acute Current Visit: Yes (4) ICH (intracerebral hemorrhage) Code(s): I61.9 - Nontraumatic intracerebral hemorrhage, unspecified Status: Acute Current Visit: No - Review/Management Plan: Persistent comatose state. Off Versed MRI brain scan shows evacuation of left frontal hemorrhage perilesional edema There does appear to be increased signal bihemispheric sulcal regions on FLAIR imaging; this was not seen on his previous MRI scan. possibly related to fluid shifts, metabolic, seizure, infectious Progressive hypernatremia and increasing BUN and creatinine level. Critical care following; suspect this is contributing to his somnolent state Seizure medication levels in range EEG showing more breech rhythm less focal seizure activity Recommendations Reduced dose of IV phenobarbital Follow-up EEG Discussed with patient spouse and son at bedside. Discussed with critical care (4) ICH (intracerebral hemorrhage) Qualifiers: Intracerebral hemorrhage etiology: traumatic Encounter type: initial encounter Laterality: left Loss of consciousness presence/duration: with LOC of unspecified duration Qualified Code(s): S06.359A - Traumatic hemorrhage of left cerebrum with loss of consciousness of unspecified duration, initial encounter
--- NOTE | 2018-09-16 17:03 | P.PNNS ---
Subjective Interval history: ?less responsive today Physical Exam Vital signs: Vital Signs 09/15/18 17:30 09/15/18 18:00 09/15/18 18:30 Temperature Pulse Rate 94 H 107 H 100 H Respiratory Rate 17 16 16 Blood Pressure 115/59 L 110/57 L 111/57 L Pulse Oximetry 98 98 98 09/15/18 19:00 09/15/18 19:30 09/15/18 20:00 Temperature Pulse Rate 100 H 108 H 108 H Respiratory Rate 16 14 14 Blood Pressure 110/57 L 110/58 L 107/57 L Pulse Oximetry 98 98 98 09/15/18 20:30 09/15/18 21:00 09/15/18 21:30 Temperature 98.6 F Pulse Rate 99 H 99 H 96 H Respiratory Rate 15 19 14 Blood Pressure 112/60 119/66 119/57 L Pulse Oximetry 98 98 98 09/15/18 22:00 09/15/18 22:11 09/15/18 22:30 Temperature Pulse Rate 101 H 108 H Respiratory Rate 15 15 17 Blood Pressure 113/67 115/67 Pulse Oximetry 99 98 98 09/15/18 23:00 09/15/18 23:30 09/16/18 00:00 Temperature 98.6 F Pulse Rate 106 H 104 H 100 H Respiratory Rate 15 15 13 Blood Pressure 116/64 118/65 110/64 Pulse Oximetry 98 97 98 09/16/18 00:30 09/16/18 01:00 09/16/18 01:03 Temperature Pulse Rate 97 H 94 H Respiratory Rate 15 16 15 Blood Pressure 114/63 119/63 Pulse Oximetry 99 99 98 09/16/18 01:30 09/16/18 02:00 09/16/18 02:30 Temperature Pulse Rate 98 H 89 87 Respiratory Rate 17 15 17 Blood Pressure 124/71 128/61 112/57 L Pulse Oximetry 97 95 94 L 09/16/18 02:32 09/16/18 03:00 09/16/18 03:39 Temperature Pulse Rate 89 93 H 105 H Respiratory Rate 16 17 24 Blood Pressure 112/56 L 119/65 130/64 Pulse Oximetry 94 L 94 L 09/16/18 04:00 09/16/18 04:14 09/16/18 04:30 Temperature 99.1 F Pulse Rate 93 H 97 H Respiratory Rate 16 17 15 Blood Pressure 130/70 123/67 Pulse Oximetry 99 99 99 09/16/18 05:00 09/16/18 06:00 09/16/18 07:34 Temperature Pulse Rate 88 92 H Respiratory Rate 15 16 Blood Pressure 129/67 Pulse Oximetry 100 97 09/16/18 08:00 09/16/18 10:00 09/16/18 10:47 Temperature 98.6 F Pulse Rate 98 H 93 H Respiratory Rate 21 20 Blood Pressure 102/63 Pulse Oximetry 100 96 09/16/18 11:57 09/16/18 12:00 09/16/18 13:29 Temperature 97.8 F Pulse Rate 98 H Respiratory Rate 15 18 Blood Pressure 125/71 Pulse Oximetry 100 100 99 09/16/18 14:00 09/16/18 15:05 09/16/18 16:00 Temperature 97.9 F Pulse Rate 84 90 Respiratory Rate 20 16 Blood Pressure 113/60 Pulse Oximetry 100 100 Intake & Output 09/15/18 09/16/18 09/16/18 18:59 06:59 18:59 Intake Total 1049.1 / 1049.1 1051.6 / 1051.6 162.6 / 162.6 Output Total 870 / 870 1250 / 1250 Balance 179.1 / 179.1 -198.4 / -198.4 162.6 / 162.6 Weight 103.3 kg Intake: IV 370.1 / 370.1 477.6 / 477.6 162.6 / 162.6 Flexbumin 25% Inj 100 ML @ 60 100 / 100 100 / 100 mls/hr IV.SIG Q12H [facility] Rx#: [id number] Cerebyx Inj 130 MGPE In NS Inj 52.6 / 52.6 52.6 / 52.6 52.6 / 52.6 50 ML @ 216 mls/hr IV.SIG Q12HR [facility] Rx#:[id number] Vimpat Inj 100 MG In NS Inj 100 110 / 110 110 / 110 110 / 110 ML @ 110 mls/hr IV.SIG Q12HR [facility] Rx#:[id number] Depacon Inj 750 MG In NS Inj 107.5 / 107.5 215.0 / 215.0 100 ML @ 105 mls/hr IV.SIG Q8H [facility] Rx#:[id number] Tube Feeding 679 / 679 574 / 574 Output: Stool 400 / 400 Urine Amount (Catheter) 850 / 850 850 / 850 Indwelling Temp Sensing 850 / 850 850 / 850 Catheter Wound Drainage # 1 Left Head Other: Date of Last Bowel Movement 09/15/18 09/15/18 09/16/18 Narrative: pupils equal left wound clean and dry healing well, drain site dry no eye opening, no purposeful movements seen no seizure activities - Urinary Catheter Management Indwelling Urethral Catheter Cath placed during this visit: yes, but has since been removed by the nurse Reason for continuing: Decision to DC catheter Insertion date: 09/06/18 Insertion time: 23:00 Removal date: 09/08/18 Removal time: 18:21 Straight Cath placed during this visit: yes, but has since been removed by the nurse Reason for continuing: Decision to DC catheter Insertion date: 09/09/18 Insertion time: 02:20 Removal date: 09/10/18 Removal time: 12:00 Indwelling Temp Sensing Catheter Cath placed during this visit: yes Reason for continuing: Acute urinary retention Insertion date: 09/12/18 Insertion time: 15:30 Assessment and Plan - Plan 77yoM with intractable seizures s/p craniotomy 09/12 ([facility]) for resection of hemorrhagic seizure focus. cont follow up neuro exam neuro following cont Anti seizure medication critical care
[2018-09-17] MEDS: dilTIAZem 30 MG Tablet PO SCH ×4 (02:35→20:12)
[2018-09-17] MEDS: Oral Hygiene Kit OROPHARYNG SCH ×3 (04:12→18:18)
[2018-09-17] MEDS: Valproate Inj 750 MG in Sodium Chlor 0.9% Inj 100 ML IV.SIG SCH ×2 (04:12→13:30)
[2018-09-17 05:05] LABS: Hematocrit 29.6 % (39.0-51.0); Hemoglobin 9.2 gm/dL (13.0-17.0); Mean Corpuscular HGB Conc 31.2 % (32.0-36.0); Mean Corpuscular Hemoglobin 34.1 pg (27.0-34.0); Mean Corpuscular Volume 109.1 fL (80.0-100.0); Mean Platelet Volume 9.4 fL (7.0-11.0); Platelet Count 168 th/mm3 (150-450); Red Blood Count 2.71 mil/mm3 (4.50-5.90); Red Cell Distribution Width 17.3 % (11.6-17.2); White Blood Count 13.7 th/mm3 (4.0-11.0)
[2018-09-17 05:27] LABS: Calcium 9.1 mg/dL (8.5-10.1); Carbon Dioxide 26.6 meq/L (21.0-32.0); Magnesium 2.7 mg/dL (1.5-2.5); Phosphorus 3.1 mg/dL (2.5-4.9); Potassium 4.7 meq/L (3.5-5.1)
[2018-09-17 05:33] LABS: Phenytoin (Dilantin) 11.1 mcg/mL (10.0-20.0)
[2018-09-17] MEDS: Heparin - SQ 10,000 UNITS/ML Vial SQ SCH ×3 (05:37→21:06)
[2018-09-17] MEDS: Insulin NovoLOG Aspart Correctional Sugar Inj SQ SCH ×3 (05:39→18:18)
--- NOTE | 2018-09-17 07:28 | P.PNCC ---
Subjective Subjective Remarks/Hospital Course: 69-year-old male with a history of recent ICH, and seizure disorder presents from home after he was seizing. Called paramedics arrived to find him seizing in the setting they gave him 2 of Versed to break his seizure after they establish IV access patient then in route has another seizure and they gave him 2 more Versed. The patient was a postictal voiding episode and became in respiratory distress needed to be intubated by the paramedics. They intubated him and arrived to emergency department sedated intubated and possibly seizing with contraction of the right hand. He was started on a propofol drip to keep him sedated as well as seizure-free and he has been admitted to the ICU. 09/07: No more seizure activity. Weaned to propofol 5 mics per kilogram per minute. AED restarted. CAT scan shows diminished size of left frontal lobe hematoma compared to prior study. 09/08: No more obvious seizure activity. Patient withdraws limbs aside from left foot. He grimaces to noxious stimulation. Breathes spontaneously over the ventilator. We need to confirm that he is indeed stopped seizing. Cerebyx added to Keppra. 09/09: Focus of left frontal intermittent seizure activity persists on 09/08. Still on Versed drip infusion and mechanical ventilation. Neurology service continues to adjust AED regimen. MRI yesterday without other significant injury aside from the known left frontal hematoma. 09/10: Focal area of intermittent seizure frontal lobe persisted yesterday on EEG. AED doses being adjusted. Urine output marginal, will reinstitute loop diuretic along with metolazone. Underlying cardiac function impaired at baseline with severe mitral and tricuspid regurgitation along with pulmonary hypertension as expected. Most recent echo is about a month ago. 09/11: Continued left fronto temporal seizure activity despite 3 AEDs. Juxtaposition of this 2 cm maturing left frontal lobe hematoma to the seizure activity is probably not coincidental. I have discussed with the family the concept of excising the mature hematoma in an attempt to attenuate the seizure activity. 09/12: Patient required versed yesterday for elevated airway pressures possibly related to seizure activity. No problems after Versed bolus and restarted. Plan is for resection of the seizure substrate in the left frontal lobe today. 09/13: Status post resection of left frontal lobe hemorrhagic mass yesterday. Return from OR on mechanical ventilation. Stable hemodynamics. Patient remains neurologically unstable with refractory seizures for which he underwent mass resection. 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 All sedation was stopped late Saturday and we are waiting for the gentleman to wake up. By cardiac echo obtained during his last admission he has both severe mitral and tricuspid regurgitation. He tends to retain fluid and is been chronically on Bumex 2 mg and metolazone 5 mg daily. Renal function tests indicate a prerenal type azotemia. It is unlikely that this represents too little intravascular volume because his weight is up and he has peripheral edema in his lower extremities. I have added albumin in an attempt to mobilize some fluid. Fortunately gas exchange has been good. 09/15: off sedation x 48h. still not following commands. very poor neuro exam. GCS 3. ? weak flicker of movement in the right upper extremity (unclear if posturing or withdraw) and slight grimace to painful stimuli. otherwise, no movement in any extremity. +cough. + corneals. pupils 2mm equal and reactive. EEG ordered. 09/16: remains off sedation for days. now worsening exam: no grimace at all to painful stimuli. GCS remains 3. EEG persistently poor, but no overt seizures. MRI ordered today without new ischemic area. anti-epileptic levels therapeutic. discussed with Dr. Bonilla: if no improvements by the end of the week, prognosis is grim at best. discussed this together at length with the family. states she does knows that he would not want trach/peg and would not want to live if he was not awake and off machines. 09/17: Elevated BUN likely contributing to his somnolence. Considering the extended period of time he was on moderate to high dose Versed it may well take many more days for that to clear as well. I am forced to hydrate him knowing that it will increase his peripheral edema. But were going to have to normalize his urea nitrogen before we can assume he is encephalopathic for some other reason. Objective Vital Signs / I&O: Vital Signs 09/16/18 07:34 09/16/18 08:00 09/16/18 10:00 Temperature 98.6 F Pulse Rate 98 H 93 H Respiratory Rate 16 21 Blood Pressure 102/63 Pulse Oximetry 97 100 09/16/18 10:47 09/16/18 11:57 09/16/18 12:00 Temperature 97.8 F Pulse Rate 98 H Respiratory Rate 20 15 Blood Pressure 125/71 Pulse Oximetry 96 100 100 09/16/18 13:29 09/16/18 14:00 09/16/18 15:05 Temperature Pulse Rate 84 Respiratory Rate 18 20 Blood Pressure Pulse Oximetry 99 100 09/16/18 16:00 09/16/18 18:00 09/16/18 18:09 Temperature 97.9 F Pulse Rate 90 94 H Respiratory Rate 16 Blood Pressure 113/60 Pulse Oximetry 100 100 09/16/18 19:15 09/16/18 20:00 09/16/18 22:30 Temperature 97.3 F L Pulse Rate 92 H Respiratory Rate 16 17 14 Blood Pressure 132/68 Pulse Oximetry 100 100 96 09/17/18 00:00 09/17/18 01:17 09/17/18 04:00 Temperature 97.0 F L 97.8 F Pulse Rate 92 H 82 Respiratory Rate 15 14 15 Blood Pressure 109/64 125/73 Pulse Oximetry 98 96 100 09/17/18 04:23 Temperature Pulse Rate Respiratory Rate 15 Blood Pressure Pulse Oximetry 100 Intake & Output 09/16/18 09/17/18 09/17/18 18:59 06:59 18:59 Intake Total 1382.1 / 1382.1 1534.6 / 1534.6 Output Total 1675 / 1675 1050 / 1050 Balance -292.9 / -292.9 484.6 / 484.6 Weight 106.8 kg Intake: IV 370.1 / 370.1 477.6 / 477.6 Flexbumin 25% Inj 100 ML @ 60 100 / 100 100 / 100 mls/hr IV.SIG Q12H [facility] Rx#: [id number] Cerebyx Inj 130 MGPE In NS Inj 52.6 / 52.6 52.6 / 52.6 50 ML @ 216 mls/hr IV.SIG Q12HR [facility] Rx#:[id number] Vimpat Inj 100 MG In NS Inj 100 110 / 110 110 / 110 ML @ 110 mls/hr IV.SIG Q12HR [facility] Rx#:[id number] Depacon Inj 750 MG In NS Inj 107.5 / 107.5 215.0 / 215.0 100 ML @ 105 mls/hr IV.SIG Q8H [facility] Rx#:[id number] Tube Feeding 512 / 512 657 / 657 Tube Irrigant 100 / 100 400 / 400 Water Bolus Amount 400 / 400 Output: Urine 650 / 650 Stool 400 / 400 400 / 400 Urine Amount (Catheter) 1275 / 1275 Indwelling Temp Sensing 1275 / 1275 Catheter Other: Date of Last Bowel Movement 09/16/18 09/17/18 Result Diagrams: 09/17/18 04:45 09/17/18 04:45 Objective Remarks: gen: elderly male, lying in bed, encephalopathic. heent: dressings c/d/i. neck: no jvd. trachea midline. Orally intubated chest: PRVC. equal chest rise. fio2 40% cv: normal rate, regular rhythm. sinus. abd: soft, nontender, nondistended. no guarding. Bowel sounds active extr: no edema. distal pulses 2+. neuro: GCS 3. RASS -5. no movement at all today to deep stimulation. Assessment and Plan - Assessment and Plan Plan: Assessment: 77yM presented in status epilepticus with frontal mass now s/p craniotomy and mass resection with persistently very poor neurologic exam. MRI today. remains critically ill today, off pathway, with persistently dense encephalopathy. the longer we go without neurologic improvement, the more grim the prognosis. Recommend waiting until the end of the week, but then will likely need to get palliative care involved if no improvements. Will start hydration and see how he responds. 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 -Neurology consulted. -Neurosurgery consulted. -Cerebyx added 09/07 -Phenobarbital added -Left frontal focus of intermittent seizures persists 09/08, 09/10, 09/11. improving eeg 09/15 -Plan resection of seizure substrate and left frontal lobe -> 09/12 - ICH Old from beginning of August -Decreasing in size Resp: Acute hypoxic and hypercarbic Respiratory failure- persistent -Attempt to wean and extubate when seizure-free -No sbt while mental status is poor. -Vent bundle -DuoNeb's as needed CV: Atrial fibrillation Severe mitral and tricuspid regurgitation Pulmonary hypertension Dyslipidemia Hypertension -Metoprolol -Hold anticoagulation due to recent ICH -increase Bumex 1 mg IV BID, continue metolazone -albumin twice daily to mobilize peripheral edema -Azotemia worrisome. -Pravastatin -Metolazone -Metoprolol, and for A. fib rate control Renal: d/c bishop FEN/GI: Acute protein calorie malnutrition- severe tube feeds ICU electrolyte protocol daily bmp, mg, phos send pre-albumin Heme/ID: C. difficile infection -Patient received vancomycin and Zosyn during hospital admission August 19 and was discharged on Levaquin. -Diarrheal stool noticed day 3, antigen and toxin positive -Oral vancomycin 250 4 times daily started 09/09 Endocrine: Diabetes -Insulin sliding scale -Made more difficult by Decadron, increased Levemir 10 units subcu twice daily, continue sliding scale correction DVT GI prophylaxis -Teds SCDs -Subcu heparin -Pepcid Overall impression: This gentleman is critically ill having sustained seizures which required intubation and mechanical ventilation for control. We are unable to wean him from the ventilator at this time. Intermittent nonconvulsive seizures were documented multiple times by EEG. Remains critically ill and neurologically unstable. Osmotic diuresis from hyperglycemia and dual diuretics may have contributed to his prerenal azotemia. Markedly elevated BUN will need to be corrected before we can do so his mental status is deteriorated. Review thyroid functions as well. Critical care 35 minutes aside from procedures.
[2018-09-17] MEDS: Insulin Detemir Inj 1,000 UNIT/10 ML Vial SQ SCH ×2 (09:53→20:13)
[2018-09-17] MEDS: Allopurinol 100 MG Tablet PO SCH (09:53)
[2018-09-17] MEDS: Magnesium Oxide 400 MG Tablet PO SCH ×2 (09:53→20:12)
[2018-09-17] MEDS: Metoprolol Tartrate 50 MG Tablet PO SCH ×2 (09:53→20:12)
[2018-09-17] MEDS: PHENobarbital Inj 130 MG/ML Vial IV.PUSH SCH ×2 (09:54→20:13)
[2018-09-17] MEDS: Senna/Docusate Sodium 8.6/50 MG Tablet PO SCH ×2 (09:54→20:12)
[2018-09-17] MEDS: Beneprotein Powder Packet G-TUBE SCH ×3 (09:54→18:18)
[2018-09-17] MEDS: Chlorhexidine 0.12% Oral Kit 15 ML UDC OROPHARYNG SCH ×2 (09:54→20:12)
[2018-09-17] MEDS: Famotidine PF Inj 20 MG/2 ML Vial IV.PUSH SCH ×2 (09:56→20:13)
[2018-09-17] MEDS: Lacosamide Inj 100 MG in Sodium Chlor 0.9% Inj 100 ML IV.SIG SCH ×2 (09:58→20:14)
[2018-09-17] MEDS: Fosphenytoin Inj 130 MGPE in Sodium Chlor 0.9% Inj 50 ML IV.SIG SCH ×2 (09:58→20:13)
--- NOTE | 2018-09-17 10:09 | P.PNNS ---
Subjective Interval history: remains intubated, not opening eyes, not following commands Physical Exam Vital signs: Vital Signs 09/16/18 10:47 09/16/18 11:57 09/16/18 12:00 Temperature 97.8 F Pulse Rate 98 H Respiratory Rate 20 15 Blood Pressure 125/71 Pulse Oximetry 96 100 100 09/16/18 13:29 09/16/18 14:00 09/16/18 15:05 Temperature Pulse Rate 84 Respiratory Rate 18 20 Blood Pressure Pulse Oximetry 99 100 09/16/18 16:00 09/16/18 18:00 09/16/18 18:09 Temperature 97.9 F Pulse Rate 90 94 H Respiratory Rate 16 Blood Pressure 113/60 Pulse Oximetry 100 100 09/16/18 19:15 09/16/18 20:00 09/16/18 22:30 Temperature 97.3 F L Pulse Rate 92 H Respiratory Rate 16 17 14 Blood Pressure 132/68 Pulse Oximetry 100 100 96 09/17/18 00:00 09/17/18 01:17 09/17/18 04:00 Temperature 97.0 F L 97.8 F Pulse Rate 92 H 82 Respiratory Rate 15 14 15 Blood Pressure 109/64 125/73 Pulse Oximetry 98 96 100 09/17/18 04:23 09/17/18 08:00 09/17/18 08:06 Temperature Pulse Rate 85 Respiratory Rate 15 27 H 17 Blood Pressure 129/73 Pulse Oximetry 100 99 Intake & Output 09/16/18 09/17/18 09/17/18 18:59 06:59 18:59 Intake Total 1382.1 / 1382.1 1534.6 / 1534.6 Output Total 1675 / 1675 1050 / 1050 Balance -292.9 / -292.9 484.6 / 484.6 Weight 106.8 kg Intake: IV 370.1 / 370.1 477.6 / 477.6 Flexbumin 25% Inj 100 ML @ 60 100 / 100 100 / 100 mls/hr IV.SIG Q12H [facility] Rx#: [id number] Cerebyx Inj 130 MGPE In NS Inj 52.6 / 52.6 52.6 / 52.6 50 ML @ 216 mls/hr IV.SIG Q12HR [facility] Rx#:[id number] Vimpat Inj 100 MG In NS Inj 100 110 / 110 110 / 110 ML @ 110 mls/hr IV.SIG Q12HR [facility] Rx#:[id number] Depacon Inj 750 MG In NS Inj 107.5 / 107.5 215.0 / 215.0 100 ML @ 105 mls/hr IV.SIG Q8H [facility] Rx#:[id number] Tube Feeding 512 / 512 657 / 657 Tube Irrigant 100 / 100 400 / 400 Water Bolus Amount 400 / 400 Output: Urine 650 / 650 Stool 400 / 400 400 / 400 Urine Amount (Catheter) 1275 / 1275 Indwelling Temp Sensing 1275 / 1275 Catheter Other: Date of Last Bowel Movement 09/16/18 09/17/18 Narrative: not opening eyes, not following commands pupils equal left wound clean and dry healing well, drain site dry no purposeful movements seen no seizure activities - Urinary Catheter Management Indwelling Urethral Catheter Cath placed during this visit: yes, but has since been removed by the nurse Reason for continuing: Decision to DC catheter Insertion date: 09/06/18 Insertion time: 23:00 Removal date: 09/08/18 Removal time: 18:21 Straight Cath placed during this visit: yes, but has since been removed by the nurse Reason for continuing: Decision to DC catheter Insertion date: 09/09/18 Insertion time: 02:20 Removal date: 09/10/18 Removal time: 12:00 Indwelling Temp Sensing Catheter Cath placed during this visit: yes Reason for continuing: Acute urinary retention Insertion date: 09/12/18 Insertion time: 15:30 Assessment and Plan - Plan 77yoM with intractable seizures s/p craniotomy 09/12 ([facility]) for resection of hemorrhagic seizure focus. Head MRI 09/16/18 00:00 CONCLUSION: 1. Postsurgical changes left frontal lobe with minimal basilar edema and minimal residual hemorrhage. 2. No midline shift or mass effect. 3. Cerebral atrophy. 4. No acute infarction. 5. Old left cerebellar infarct. MRI Brain reviewed by Dr. Remy cont follow up neuro exam neuro following cont Anti seizure medication cont critical care
[2018-09-17] MEDS: Sodium Chloride 23.4% Inj 38.5 MEQ in Water for Inj, Sterile 1,000 ML IV.CONT SCH ×2 (14:14→20:11)
--- NOTE | 2018-09-17 17:28 | MG ---
cc: Love Goldman MD, Mandeep MD ELECTROENCEPHALOGRAM NUMBER: [id number] REFERRING PHYSICIAN: Abisai Bonilla MD CLINICAL HISTORY: A 77-year-old. Room 1303. With photic stimulation. Intubated, unresponsive. Deep tactile stimulation given on all 4 extremities, no response. EEG on 09/15/2018 and MRI report are in the EMR; however, I am unable to view them. On Robinul, Depakote, lacosamide, Cerebyx. DESCRIPTION OF RECORD: There is overall slowing of background significant of 1-2 Hz. There seems to be some sharp wave activities noted at epoch 13, more predominant over the left hemisphere, minimal over the right. The sharp wave activity is variable and not consistent. It is on a few epochs, and then at epoch 72 again, a spike wave seen again predominantly over the left side. It is seen fairly frequent. With photic stimulation, there is no significant driving response. IMPRESSION: Abnormal electroencephalogram due to moderate slowing as well as spike waves seen predominantly over the left hemisphere compared to the right and possibly a focus for epileptogenicity. However, it does not seem that there are active continuous seizures. MD DAVE Gomez/david , 04:09 PM , 04:16 PM
[2018-09-17] MEDS ORDERED: VALPROATE IV.SIG SCH (19:32)
[2018-09-17] MEDS ORDERED: SODIUM CHLOR 0.9% IV.SIG SCH (19:32)
[2018-09-18] MEDS: Oral Hygiene Kit OROPHARYNG SCH ×4 (00:11→16:30)
[2018-09-18] MEDS: dilTIAZem 30 MG Tablet PO SCH ×4 (01:10→20:34)
[2018-09-18] MEDS: Insulin NovoLOG Aspart Correctional Sugar Inj SQ SCH ×4 (01:10→18:10)
[2018-09-18] MEDS: Sodium Chloride 23.4% Inj 38.5 MEQ in Water for Inj, Sterile 1,000 ML IV.CONT SCH ×3 (04:49→14:46)
[2018-09-18 06:26] LABS: Hematocrit 32.4 % (39.0-51.0); Hemoglobin 10.3 gm/dL (13.0-17.0); Mean Corpuscular HGB Conc 31.9 % (32.0-36.0); Mean Corpuscular Hemoglobin 34.9 pg (27.0-34.0); Mean Corpuscular Volume 109.6 fL (80.0-100.0); Mean Platelet Volume 9.8 fL (7.0-11.0); Platelet Count 175 th/mm3 (150-450); Red Blood Count 2.96 mil/mm3 (4.50-5.90); White Blood Count 15.9 th/mm3 (4.0-11.0)
[2018-09-18 06:47] LABS: Calcium 8.9 mg/dL (8.5-10.1); Carbon Dioxide 24.1 meq/L (21.0-32.0); Magnesium 2.8 mg/dL (1.5-2.5); Phosphorus 2.8 mg/dL (2.5-4.9); Potassium 5.1 meq/L (3.5-5.1)
[2018-09-18 07:01] LABS: T4 (Thyroxine) 4.1 mcg/dL (4.5-12.1); Thyroid Stimulating Hormone 2.26 uIU/mL (0.358-3.740)
[2018-09-18] MEDS: Heparin - SQ 10,000 UNITS/ML Vial SQ SCH ×3 (07:30→21:16)
--- NOTE | 2018-09-18 08:34 | P.PNNEU ---
Subjective Subjective Comments: No acute events, no obvious seizure activity noted Active Medications: Active Medications Acetaminophen (Tylenol) 650 mg PO Q6H PRN PRN Reason: FOR FEVER >101F Last Admin: 09/11/18 19:57 Dose: 650 mg Al Hydroxide/Mg Hydroxide (Milk Of Cesario Liq) 30 ml PO Q12H PRN PRN Reason: Mild Constipation Albuterol (Duoneb Neb (Prn)) 1 ampul NEB Q2HR NEB PRN PRN Reason: WHEEZING Last Admin: 09/17/18 19:45 Dose: 1 ampul Allopurinol (Zyloprim) 100 mg PO DAILY [facility] Last Admin: 09/17/18 09:53 Dose: 100 mg Bisacodyl (Dulcolax Supp) 10 mg RECTAL DAILY PRN PRN Reason: SEVERE CONSITIPATION Bumetanide (Bumex Inj) 1 mg IV.PUSH BID@0900,1800 [facility] Last Admin: 09/16/18 17:07 Dose: 1 mg Chlorhexidine Gluconate (Peridex 0.12% Oral Kit) 15 ml OROPHARYNG BID@0800, 2000 [facility] Last Admin: 09/17/18 20:12 Dose: 15 ml Dexamethasone Sodium Phosphate (Decadron Inj) 4 mg IV.PUSH Q6H [facility] Last Admin: 09/18/18 01:10 Dose: 4 mg Dextrose (D50w Vial) 50 ml IV.PUSH UNSCH PRN PRN Reason: PER HYPOGLYCEMIA PROTOCOL Diltiazem HCl (Cardizem Cd 24hr) 120 mg PO DAILY [facility] Last Admin: 09/07/18 12:00 Dose: Not Given Diltiazem HCl (Cardizem) 30 mg PO Q6H [facility] Last Admin: 09/18/18 01:10 Dose: 30 mg Famotidine (Pepcid Pf Inj) 10 mg IV.PUSH Q12HR [facility] Last Admin: 09/17/18 20:13 Dose: 10 mg Glucagon (Glucagon Inj) 1 mg OTHER PRN PRN PRN Reason: for Hypoglycemia Protocol Heparin Sodium (Porcine) (Heparin Inj) 5,000 units SQ Q8HR [facility] Last Admin: 09/18/18 07:30 Dose: 5,000 units Lacosamide 100 mg/ Sodium (Chloride) 110 mls @ 110 mls/hr IV.SIG Q12HR [facility] Last Infusion: 09/17/18 21:14 Dose: Infused Fosphenytoin Sodium 130 mgpe/ (Sodium Chloride) 52.6 mls @ 216 mls/hr IV.SIG Q12HR [facility] Last Infusion: 09/17/18 20:28 Dose: Infused Sodium Chloride 38.5 meq/ (Sterile Water) 1,009.625 mls @ 100 mls/hr IV.CONT .Q10H6M [facility] Last Admin: 09/18/18 04:49 Dose: 100 mls/hr Insulin Aspart (Novolog Insulin Correctional Sugar Inj) 0 unit SQ Q6HR [facility]; Protocol Last Admin: 09/18/18 07:30 Dose: 100 unit Insulin Detemir (Levemir Inj) 10 unit SQ BID [facility] Last Admin: 09/17/18 20:13 Dose: 10 unit Lactulose (Lactulose Liq) 30 ml PO DAILY PRN PRN Reason: SEVERE CONSITIPATION Lorazepam (Ativan Inj) 1 mg IV.PUSH Q1H PRN PRN Reason: Agitation/sedation or Seizure Last Admin: 09/07/18 04:37 Dose: 1 mg Magnesium Oxide (Mag-Ox) 400 mg PO BID [facility] Last Admin: 09/17/18 20:12 Dose: 400 mg Metolazone (Zaroxolyn) 5 mg PO DAILY [facility] Last Admin: 09/16/18 09:18 Dose: 5 mg Metoprolol Tartrate (Lopressor) 50 mg PO BID [facility] Last Admin: 09/17/18 20:12 Dose: 50 mg Miscellaneous Medication () 1 each OROPHARYNG 0000,0400,1200,1600 [facility] Last Admin: 09/18/18 04:49 Dose: 1 each Morphine Sulfate (Morphine Inj) 2 mg IV.PUSH Q2H PRN PRN Reason: PAIN SCALE 6 TO 10 Ondansetron HCl (Zofran Inj) 4 mg IV.PUSH Q6H PRN PRN Reason: NAUSEA OR VOMITING Phenobarbital Sodium (Luminal Inj) 60 mg IV.PUSH Q12HR [facility] Last Admin: 09/17/18 20:13 Dose: 60 mg Pravastatin Sodium (Pravachol) 40 mg PO HS [facility] Last Admin: 09/17/18 20:12 Dose: 40 mg Senna/Docusate Sodium (Janeen-Colace) 1 tab PO BID [facility] Last Admin: 09/17/18 20:12 Dose: 1 tab Sennosides (Senokot) 17.2 mg PO Q12H PRN PRN Reason: Moderate Constipation Sodium Chloride (Ns Flush) 2 ml IV.FLUSH BID [facility] Last Admin: 09/17/18 20:13 Dose: Not Given Sodium Chloride (Ns Flush) 2 ml IV.FLUSH PRN PRN PRN Reason: FLUSH AFTER USING IV ACCESS Last Admin: 09/12/18 20:57 Dose: 2 ml Sterile Water (Free Water) 200 ml G-TUBE Q6HR [facility] Last Admin: 09/18/18 07:30 Dose: 200 ml Vancomycin HCl (Vancomycin Po) 250 mg PO QID [facility] Last Admin: 09/17/18 20:14 Dose: 250 mg Whey (Beneprotein Powder) 1 packet G-TUBE TID [facility] Last Admin: 09/17/18 18:18 Dose: 1 packet Allergies/Adverse Reactions: Allergies Allergy/AdvReac Type Severity Reaction Status Date / Time digitoxin Allergy Severe Hallucinati Verified 08/19/18 15:46 ons Review of Systems unobtainable due to endotracheal tube, unobtainable due to mental status Physical Exam Vital signs: Vital Signs 09/17/18 12:00 09/17/18 12:38 09/17/18 15:46 Temperature 98.4 F Pulse Rate 84 Respiratory Rate 14 19 17 Blood Pressure 113/60 Pulse Oximetry 100 100 09/17/18 16:00 09/17/18 19:46 09/17/18 20:00 Temperature 98.6 F 98.7 F Pulse Rate 84 101 H 91 H Respiratory Rate 14 23 17 Blood Pressure 114/56 L 129/65 Pulse Oximetry 99 98 09/17/18 22:00 09/18/18 00:00 09/18/18 00:02 Temperature 98.6 F Pulse Rate 89 91 H Respiratory Rate 17 14 Blood Pressure 108/57 L Pulse Oximetry 100 99 09/18/18 02:00 09/18/18 04:00 09/18/18 06:00 Temperature 97.7 F Pulse Rate 89 93 H 76 Respiratory Rate 16 Blood Pressure 113/63 Pulse Oximetry 100 Intake & Output 09/17/18 09/18/18 09/18/18 18:59 06:59 18:59 Intake Total 1037 / 1037 2617.325 / 2617.325 Output Total 1000 / 1000 1350 / 1350 Balance 37 / 37 1267.325 / 1267.325 Weight 108.1 kg 108.1 kg Intake: IV 1442.325 / 1442.325 Sodium Chloride 23.4% Inj 38.5 1009.625 / 1009.625 MEQ In Sterile Water for Inj 1, 000 ML @ 100 mls/hr IV.CONT . Q10H6M [facility] Rx#:[id number] Cerebyx Inj 130 MGPE In NS Inj 105.2 / 105.2 50 ML @ 216 mls/hr IV.SIG Q12HR [facility] Rx#:[id number] Vimpat Inj 100 MG In NS Inj 100 220 / 220 ML @ 110 mls/hr IV.SIG Q12HR [facility] Rx#:[id number] Depacon Inj 750 MG In NS Inj 107.5 / 107.5 100 ML @ 105 mls/hr IV.SIG Q8H [facility] Rx#:[id number] Tube Feeding 637 / 637 655 / 655 Tube Irrigant 400 / 400 400 / 400 Water Bolus Amount 120 / 120 Output: Urine 1000 / 1000 750 / 750 Stool 0 / 0 600 / 600 Other: Date of Last Bowel Movement 09/17/18 09/18/18 Weight On Admission 108.1 kg Narrative: GENERAL: in NAD, SKIN: Warm and dry. HEAD: Atraumatic. Normocephalic. EYES: Sluggishly reactive ENT: Intubated NECK: Intubated CARDIOVASCULAR: Regular rate and rhythm. RESPIRATORY: Intubated GASTROINTESTINAL: Abdomen soft, non-tender, nondistended. MUSCULOSKELETAL: No obvious deformities. Bilateral lower extremity edema NEUROLOGICAL: Intubated, coma state nonverbal not following, grimace to deep tactile, OU 3/2 mm sluggishly reactive no gaze deviation, no localization PSYCHIATRIC: Intubated, calm - Constitutional no acute distress - Routine HEENT Exam Head: Present: normocephalic - Urinary Catheter Management Indwelling Urethral Catheter Cath placed during this visit: yes, but has since been removed by the nurse Reason for continuing: Decision to DC catheter Insertion date: 09/06/18 Insertion time: 23:00 Removal date: 09/08/18 Removal time: 18:21 Straight Cath placed during this visit: yes, but has since been removed by the nurse Reason for continuing: Decision to DC catheter Insertion date: 09/09/18 Insertion time: 02:20 Removal date: 09/10/18 Removal time: 12:00 Indwelling Temp Sensing Catheter Cath placed during this visit: yes Reason for continuing: Acute urinary retention Insertion date: 09/12/18 Insertion time: 15:30 Objective Laboratory Results - last 24 hr 09/17/18 09/17/18 09/18/18 13:19 17:55 01:05 WBC RBC Hgb Hct MCV MCH MCHC RDW Plt Count MPV Sodium Potassium Chloride Carbon Dioxide Anion Gap BUN Creatinine Estimated GFR POC Glucose 222 H 235 H 246 H Random Glucose Calcium Phosphorus Magnesium TSH Thyroxine (T4) 09/18/18 09/18/18 04:51 04:51 WBC 15.9 H RBC 2.96 L Hgb 10.3 L Hct 32.4 L MCV 109.6 H MCH 34.9 H MCHC 31.9 L RDW 17.0 Plt Count 175 MPV 9.8 Sodium 154 H Potassium 5.1 Chloride 119 H Carbon Dioxide 24.1 Anion Gap 11 BUN 118 H Creatinine 1.37 H Estimated GFR 50 L POC Glucose Random Glucose 234 H Calcium 8.9 Phosphorus 2.8 Magnesium 2.8 H TSH 2.260 Thyroxine (T4) 4.1 L Review/Management - Diagnosis (1) Localization-related (focal) (partial) symptomatic epilepsy and epileptic syndromes with complex partial seizures, intractable, with status epilepticus Code(s): G40.211 - Localization-related (focal) (partial) symptomatic epilepsy and epileptic syndromes with complex partial seizures, intractable, with status epilepticus Status: Acute Current Visit: Yes (2) Atrial fibrillation Code(s): I48.91 - Unspecified atrial fibrillation Status: Acute Current Visit: Yes (3) Acute encephalopathy Code(s): G93.40 - Encephalopathy, unspecified Status: Acute Current Visit: Yes (4) ICH (intracerebral hemorrhage) Code(s): I61.9 - Nontraumatic intracerebral hemorrhage, unspecified Status: Acute Current Visit: No - Review/Management Plan: Persistent comatose state. Off Versed MRI brain scan shows evacuation of left frontal hemorrhage perilesional edema There does appear to be increased signal bihemispheric sulcal regions on FLAIR imaging; this was not seen on his previous MRI scan. possibly related to fluid shifts, metabolic, seizure, infectious Progressive hypernatremia and increasing BUN and creatinine level. Critical care following; suspect this is contributing to his somnolent state Seizure medication levels in range EEG showing more breech rhythm less focal seizure activity Recommendations Depakote held Phenobarbital dose reduced Follow exam (4) ICH (intracerebral hemorrhage) Qualifiers: Intracerebral hemorrhage etiology: traumatic Encounter type: initial encounter Laterality: left Loss of consciousness presence/duration: with LOC of unspecified duration Qualified Code(s): S06.359A - Traumatic hemorrhage of left cerebrum with loss of consciousness of unspecified duration, initial encounter
[2018-09-18] MEDS: Metoprolol Tartrate 50 MG Tablet PO SCH ×2 (08:42→20:33)
[2018-09-18] MEDS: Magnesium Oxide 400 MG Tablet PO SCH ×2 (08:42→20:43)
[2018-09-18] MEDS: Fosphenytoin Inj 130 MGPE in Sodium Chlor 0.9% Inj 50 ML IV.SIG SCH ×2 (08:42→20:23)
[2018-09-18] MEDS: Insulin Detemir Inj 1,000 UNIT/10 ML Vial SQ SCH ×2 (08:42→20:22)
[2018-09-18] MEDS: Senna/Docusate Sodium 8.6/50 MG Tablet PO SCH ×2 (08:42→20:34)
[2018-09-18] MEDS: Famotidine PF Inj 20 MG/2 ML Vial IV.PUSH SCH ×2 (08:43→20:38)
[2018-09-18] MEDS: PHENobarbital Inj 130 MG/ML Vial IV.PUSH SCH ×2 (08:43→20:29)
[2018-09-18] MEDS: Chlorhexidine 0.12% Oral Kit 15 ML UDC OROPHARYNG SCH ×2 (08:44→20:31)
[2018-09-18] MEDS: Beneprotein Powder Packet G-TUBE SCH ×3 (08:44→18:10)
[2018-09-18] MEDS: Allopurinol 100 MG Tablet PO SCH (08:46)
[2018-09-18] MEDS: Lacosamide Inj 100 MG in Sodium Chlor 0.9% Inj 100 ML IV.SIG SCH ×2 (09:54→20:32)
--- NOTE | 2018-09-18 11:36 | P.PNCC ---
Subjective Subjective Remarks/Hospital Course: 69-year-old male with a history of recent ICH, and seizure disorder presents from home after he was seizing. Called paramedics arrived to find him seizing in the setting they gave him 2 of Versed to break his seizure after they establish IV access patient then in route has another seizure and they gave him 2 more Versed. The patient was a postictal voiding episode and became in respiratory distress needed to be intubated by the paramedics. They intubated him and arrived to emergency department sedated intubated and possibly seizing with contraction of the right hand. He was started on a propofol drip to keep him sedated as well as seizure-free and he has been admitted to the ICU. 09/07: No more seizure activity. Weaned to propofol 5 mics per kilogram per minute. AED restarted. CAT scan shows diminished size of left frontal lobe hematoma compared to prior study. 09/08: No more obvious seizure activity. Patient withdraws limbs aside from left foot. He grimaces to noxious stimulation. Breathes spontaneously over the ventilator. We need to confirm that he is indeed stopped seizing. Cerebyx added to Keppra. 09/09: Focus of left frontal intermittent seizure activity persists on 09/08. Still on Versed drip infusion and mechanical ventilation. Neurology service continues to adjust AED regimen. MRI yesterday without other significant injury aside from the known left frontal hematoma. 09/10: Focal area of intermittent seizure frontal lobe persisted yesterday on EEG. AED doses being adjusted. Urine output marginal, will reinstitute loop diuretic along with metolazone. Underlying cardiac function impaired at baseline with severe mitral and tricuspid regurgitation along with pulmonary hypertension as expected. Most recent echo is about a month ago. 09/11: Continued left fronto temporal seizure activity despite 3 AEDs. Juxtaposition of this 2 cm maturing left frontal lobe hematoma to the seizure activity is probably not coincidental. I have discussed with the family the concept of excising the mature hematoma in an attempt to attenuate the seizure activity. 09/12: Patient required versed yesterday for elevated airway pressures possibly related to seizure activity. No problems after Versed bolus and restarted. Plan is for resection of the seizure substrate in the left frontal lobe today. 09/13: Status post resection of left frontal lobe hemorrhagic mass yesterday. Return from OR on mechanical ventilation. Stable hemodynamics. Patient remains neurologically unstable with refractory seizures for which he underwent mass resection. 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 All sedation was stopped late Saturday and we are waiting for the gentleman to wake up. By cardiac echo obtained during his last admission he has both severe mitral and tricuspid regurgitation. He tends to retain fluid and is been chronically on Bumex 2 mg and metolazone 5 mg daily. Renal function tests indicate a prerenal type azotemia. It is unlikely that this represents too little intravascular volume because his weight is up and he has peripheral edema in his lower extremities. I have added albumin in an attempt to mobilize some fluid. Fortunately gas exchange has been good. 09/15: off sedation x 48h. still not following commands. very poor neuro exam. GCS 3. ? weak flicker of movement in the right upper extremity (unclear if posturing or withdraw) and slight grimace to painful stimuli. otherwise, no movement in any extremity. +cough. + corneals. pupils 2mm equal and reactive. EEG ordered. 09/16: remains off sedation for days. now worsening exam: no grimace at all to painful stimuli. GCS remains 3. EEG persistently poor, but no overt seizures. MRI ordered today without new ischemic area. anti-epileptic levels therapeutic. discussed with Dr. Bonilla: if no improvements by the end of the week, prognosis is grim at best. discussed this together at length with the family. states she does knows that he would not want trach/peg and would not want to live if he was not awake and off machines. 09/17: Elevated BUN likely contributing to his somnolence. Considering the extended period of time he was on moderate to high dose Versed it may well take many more days for that to clear as well. I am forced to hydrate him knowing that it will increase his peripheral edema. But were going to have to normalize his urea nitrogen before we can assume he is encephalopathic for some other reason. 09/18: Creatinine decline but BUN has increased again. Patient is being aggressively hydrated with hypotonic solution but were having a hard time keeping up with the was moderate diuresis from the hyperglycemia. Once again will increase the long-acting insulin coverage. Certainly elevated sodium and contributing to his somnolence. Decadron is making glucose control even harder. Underlying all this is heart failure and his ongoing retention of fluid , complicating all of these issues. Objective Vital Signs / I&O: Vital Signs 09/17/18 12:00 09/17/18 12:38 09/17/18 15:46 Temperature 98.4 F Pulse Rate 84 Respiratory Rate 14 19 17 Blood Pressure 113/60 Pulse Oximetry 100 100 09/17/18 16:00 09/17/18 19:46 09/17/18 20:00 Temperature 98.6 F 98.7 F Pulse Rate 84 101 H 91 H Respiratory Rate 14 23 17 Blood Pressure 114/56 L 129/65 Pulse Oximetry 99 98 09/17/18 22:00 09/18/18 00:00 09/18/18 00:02 Temperature 98.6 F Pulse Rate 89 91 H Respiratory Rate 17 14 Blood Pressure 108/57 L Pulse Oximetry 100 99 09/18/18 02:00 09/18/18 04:00 09/18/18 06:00 Temperature 97.7 F Pulse Rate 89 93 H 76 Respiratory Rate 16 Blood Pressure 113/63 Pulse Oximetry 100 09/18/18 07:00 09/18/18 08:00 09/18/18 08:23 Temperature Pulse Rate 90 95 H Respiratory Rate 15 14 16 Blood Pressure 125/68 117/63 Pulse Oximetry 100 99 99 09/18/18 09:00 09/18/18 09:45 09/18/18 10:00 Temperature Pulse Rate 95 H 88 Respiratory Rate 15 16 24 Blood Pressure 118/65 109/59 L Pulse Oximetry 96 99 09/18/18 11:20 Temperature Pulse Rate Respiratory Rate 17 Blood Pressure Pulse Oximetry 99 Intake & Output 09/17/18 09/18/18 09/18/18 18:59 06:59 18:59 Intake Total 1037 / 1037 2617.325 / 2617.325 162.6 / 162.6 Output Total 1000 / 1000 1350 / 1350 Balance 37 / 37 1267.325 / 1267.325 162.6 / 162.6 Weight 108.1 kg 108.1 kg Intake: IV 1442.325 / 1442.325 162.6 / 162.6 Sodium Chloride 23.4% Inj 38.5 1009.625 / 1009.625 MEQ In Sterile Water for Inj 1, 000 ML @ 100 mls/hr IV.CONT . Q10H6M [facility] Rx#:[id number] Cerebyx Inj 130 MGPE In NS Inj 105.2 / 105.2 52.6 / 52.6 50 ML @ 216 mls/hr IV.SIG Q12HR [facility] Rx#:[id number] Vimpat Inj 100 MG In NS Inj 100 220 / 220 110 / 110 ML @ 110 mls/hr IV.SIG Q12HR [facility] Rx#:[id number] Depacon Inj 750 MG In NS Inj 107.5 / 107.5 100 ML @ 105 mls/hr IV.SIG Q8H [facility] Rx#:[id number] Tube Feeding 637 / 637 655 / 655 Tube Irrigant 400 / 400 400 / 400 Water Bolus Amount 120 / 120 Output: Urine 1000 / 1000 750 / 750 Stool 0 / 0 600 / 600 Other: Date of Last Bowel Movement 09/17/18 09/18/18 Weight On Admission 108.1 kg Result Diagrams: 09/18/18 04:51 09/18/18 04:51 Objective Remarks: gen: elderly male, in bed on ventilator heent: dressings c/d/i. neck: no jvd. trachea midline. Orally intubated chest: PRVC. equal chest rise. fio2 40%, nielson clear. cv: normal rate, regular rhythm. sinus, no JVD. abd: soft, nontender, nondistended. no guarding. Bowel sounds active extr: Some thigh edema. distal pulses 2+. neuro: GCS 3. RASS -4. no movement at all today to deep stimulation. Assessment and Plan - Assessment and Plan Plan: Assessment: 77yM presented in status epilepticus with frontal mass now s/p craniotomy and mass resection with persistently very poor neurologic exam. MRI today. remains critically ill today, off pathway, with persistently dense encephalopathy. the longer we go without neurologic improvement, the more grim the prognosis. Recommend waiting until the end of the week, but then will likely need to get palliative care involved if no improvements. Will continue hydration with quarter normal saline and see how he responds. 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 -Neurology consulted. -Neurosurgery consulted. -Cerebyx added 09/07 -Phenobarbital added -Left frontal focus of intermittent seizures persists 09/08, 09/10, 09/11. improving eeg 09/15 -Plan resection of seizure substrate and left frontal lobe -> 09/12 - ICH Old from beginning of August -Decreasing in size Resp: Acute hypoxic and hypercarbic Respiratory failure- persistent -Attempt to wean and extubate when seizure-free -No sbt while mental status is poor. -Vent bundle -DuoNeb's as needed CV: Atrial fibrillation Severe mitral and tricuspid regurgitation Pulmonary hypertension Dyslipidemia Hypertension -Metoprolol -Hold anticoagulation due to recent ICH -increase Bumex 1 mg IV BID, continue metolazone -albumin twice daily to mobilize peripheral edema -Azotemia worrisome. -Pravastatin -Metolazone -Metoprolol, and for A. fib rate control Renal: d/c bishop FEN/GI: Acute protein calorie malnutrition- severe tube feeds ICU electrolyte protocol daily bmp, mg, phos send pre-albumin Heme/ID: C. difficile infection -Patient received vancomycin and Zosyn during hospital admission August 19 and was discharged on Levaquin. -Diarrheal stool noticed day 3, antigen and toxin positive -Oral vancomycin 250 4 times daily started 09/09 Endocrine: Diabetes -Insulin sliding scale -Made more difficult by Decadron, increased Levemir 16 units subcu twice daily, continue increase sliding scale correction DVT GI prophylaxis -Teds SCDs -Subcu heparin -Pepcid Overall impression: This gentleman is critically ill having sustained seizures which required intubation and mechanical ventilation for control. We are unable to wean him from the ventilator at this time. Intermittent nonconvulsive seizures were documented multiple times by EEG. Remains critically ill and neurologically unstable. Osmotic diuresis from hyperglycemia and dual diuretics may have contributed to his prerenal azotemia. Markedly elevated BUN will need to be corrected before we can do so his mental status is deteriorated. Critical care 39 minutes aside from procedures.
[2018-09-18] MEDS ORDERED: Dextrose 50% in Water 50 ML Vial IV.PUSH PRN (11:37)
--- NOTE | 2018-09-18 16:39 | P.PNNS ---
Subjective Interval history: no changes neurologically, Physical Exam Vital signs: Vital Signs 09/17/18 19:46 09/17/18 20:00 09/17/18 22:00 Temperature 98.7 F Pulse Rate 101 H 91 H 89 Respiratory Rate 23 17 Blood Pressure 129/65 Pulse Oximetry 99 98 09/18/18 00:00 09/18/18 00:02 09/18/18 02:00 Temperature 98.6 F Pulse Rate 91 H 89 Respiratory Rate 17 14 Blood Pressure 108/57 L Pulse Oximetry 100 99 09/18/18 04:00 09/18/18 06:00 09/18/18 07:00 Temperature 97.7 F Pulse Rate 93 H 76 90 Respiratory Rate 16 15 Blood Pressure 113/63 125/68 Pulse Oximetry 100 100 09/18/18 08:00 09/18/18 08:23 09/18/18 09:00 Temperature Pulse Rate 95 H 95 H Respiratory Rate 14 16 15 Blood Pressure 117/63 118/65 Pulse Oximetry 99 99 96 09/18/18 09:45 09/18/18 10:00 09/18/18 11:00 Temperature Pulse Rate 88 103 H Respiratory Rate 16 24 22 Blood Pressure 109/59 L 114/62 Pulse Oximetry 99 99 09/18/18 11:20 09/18/18 12:00 09/18/18 14:00 Temperature 97.9 F Pulse Rate 103 H 100 H Respiratory Rate 17 22 Blood Pressure 122/65 Pulse Oximetry 99 99 09/18/18 14:16 Temperature Pulse Rate Respiratory Rate 17 Blood Pressure Pulse Oximetry 98 Intake & Output 09/17/18 09/18/18 09/18/18 18:59 06:59 18:59 Intake Total 1037 / 1037 2617.325 / 2617.325 1172.225 / 1172.225 Output Total 1000 / 1000 1350 / 1350 Balance 37 / 37 1267.325 / 8162.862 3014.225 / 1172.225 Weight 108.1 kg 108.1 kg Intake: IV 1442.325 / 3424.097 4031.225 / 1172.225 Sodium Chloride 23.4% Inj 38.5 1009.625 / 4407.892 7258.625 / 1009.625 MEQ In Sterile Water for Inj 1, 000 ML @ 150 mls/hr IV.CONT . Q6H44M [facility] Rx#:[id number] Cerebyx Inj 130 MGPE In NS Inj 105.2 / 105.2 52.6 / 52.6 50 ML @ 216 mls/hr IV.SIG Q12HR [facility] Rx#:[id number] Vimpat Inj 100 MG In NS Inj 100 220 / 220 110 / 110 ML @ 110 mls/hr IV.SIG Q12HR [facility] Rx#:[id number] Depacon Inj 750 MG In NS Inj 107.5 / 107.5 100 ML @ 105 mls/hr IV.SIG Q8H [facility] Rx#:[id number] Tube Feeding 637 / 637 655 / 655 Tube Irrigant 400 / 400 400 / 400 Water Bolus Amount 120 / 120 Output: Urine 1000 / 1000 750 / 750 Stool 0 / 0 600 / 600 Other: Date of Last Bowel Movement 09/17/18 09/18/18 Weight On Admission 108.1 kg Narrative: not opening eyes, not following commands pupils equal, sluggish react left scalp wound clean and dry healing well, no purposeful movements seen, no response to pain stimulation no seizure activities - Urinary Catheter Management Indwelling Urethral Catheter Cath placed during this visit: yes, but has since been removed by the nurse Reason for continuing: Decision to DC catheter Insertion date: 09/06/18 Insertion time: 23:00 Removal date: 09/08/18 Removal time: 18:21 Straight Cath placed during this visit: yes, but has since been removed by the nurse Reason for continuing: Decision to DC catheter Insertion date: 09/09/18 Insertion time: 02:20 Removal date: 09/10/18 Removal time: 12:00 Indwelling Temp Sensing Catheter Cath placed during this visit: yes Reason for continuing: Acute urinary retention Insertion date: 09/12/18 Insertion time: 15:30 Assessment and Plan - Plan 77yoM with intractable seizures s/p craniotomy 09/12 (Jonel) for resection of hemorrhagic seizure focus. Head MRI 09/16/18 00:00 CONCLUSION: 1. Postsurgical changes left frontal lobe with minimal basilar edema and minimal residual hemorrhage. 2. No midline shift or mass effect. 3. Cerebral atrophy. 4. No acute infarction. 5. Old left cerebellar infarct. MRI Brain reviewed by Dr. Remy cont follow up neuro exam neuro following cont Anti seizure medication cont critical care dc anisa 09/26/18
[2018-09-19] MEDS: Insulin NovoLOG Aspart Correctional Sugar Inj SQ SCH ×4 (00:59→18:29)
[2018-09-19] MEDS: dilTIAZem 30 MG Tablet PO SCH ×4 (01:00→20:55)
[2018-09-19] MEDS: Oral Hygiene Kit OROPHARYNG SCH ×4 (01:00→18:29)
[2018-09-19] MEDS: Sodium Chloride 23.4% Inj 38.5 MEQ in Water for Inj, Sterile 1,000 ML IV.CONT SCH ×3 (01:13→13:37)
[2018-09-19 04:44] LABS: Hemoglobin 9.8 gm/dL (13.0-17.0); Mean Corpuscular HGB Conc 31.5 % (32.0-36.0); Mean Corpuscular Hemoglobin 34.6 pg (27.0-34.0); Mean Corpuscular Volume 109.9 fL (80.0-100.0); Mean Platelet Volume 9.5 fL (7.0-11.0); Platelet Count 168 th/mm3 (150-450); Red Blood Count 2.82 mil/mm3 (4.50-5.90); White Blood Count 17.8 th/mm3 (4.0-11.0)
[2018-09-19 05:09] LABS: Calcium 8.4 mg/dL (8.5-10.1); Carbon Dioxide 25.9 meq/L (21.0-32.0); Magnesium 2.7 mg/dL (1.5-2.5); Potassium 4.9 meq/L (3.5-5.1)
[2018-09-19 05:11] LABS: Phosphorus 2.7 mg/dL (2.5-4.9)
[2018-09-19] MEDS: Heparin - SQ 10,000 UNITS/ML Vial SQ SCH ×2 (05:46→14:06)
--- NOTE | 2018-09-19 08:08 | P.PNCC ---
Subjective Subjective Remarks/Hospital Course: 69-year-old male with a history of recent ICH, and seizure disorder presents from home after he was seizing. Called paramedics arrived to find him seizing in the setting they gave him 2 of Versed to break his seizure after they establish IV access patient then in route has another seizure and they gave him 2 more Versed. The patient was a postictal voiding episode and became in respiratory distress needed to be intubated by the paramedics. They intubated him and arrived to emergency department sedated intubated and possibly seizing with contraction of the right hand. He was started on a propofol drip to keep him sedated as well as seizure-free and he has been admitted to the ICU. 09/07: No more seizure activity. Weaned to propofol 5 mics per kilogram per minute. AED restarted. CAT scan shows diminished size of left frontal lobe hematoma compared to prior study. 09/08: No more obvious seizure activity. Patient withdraws limbs aside from left foot. He grimaces to noxious stimulation. Breathes spontaneously over the ventilator. We need to confirm that he is indeed stopped seizing. Cerebyx added to Keppra. 09/09: Focus of left frontal intermittent seizure activity persists on 09/08. Still on Versed drip infusion and mechanical ventilation. Neurology service continues to adjust AED regimen. MRI yesterday without other significant injury aside from the known left frontal hematoma. 09/10: Focal area of intermittent seizure frontal lobe persisted yesterday on EEG. AED doses being adjusted. Urine output marginal, will reinstitute loop diuretic along with metolazone. Underlying cardiac function impaired at baseline with severe mitral and tricuspid regurgitation along with pulmonary hypertension as expected. Most recent echo is about a month ago. 09/11: Continued left fronto temporal seizure activity despite 3 AEDs. Juxtaposition of this 2 cm maturing left frontal lobe hematoma to the seizure activity is probably not coincidental. I have discussed with the family the concept of excising the mature hematoma in an attempt to attenuate the seizure activity. 09/12: Patient required versed yesterday for elevated airway pressures possibly related to seizure activity. No problems after Versed bolus and restarted. Plan is for resection of the seizure substrate in the left frontal lobe today. 09/13: Status post resection of left frontal lobe hemorrhagic mass yesterday. Return from OR on mechanical ventilation. Stable hemodynamics. Patient remains neurologically unstable with refractory seizures for which he underwent mass resection. 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 All sedation was stopped late Saturday and we are waiting for the gentleman to wake up. By cardiac echo obtained during his last admission he has both severe mitral and tricuspid regurgitation. He tends to retain fluid and is been chronically on Bumex 2 mg and metolazone 5 mg daily. Renal function tests indicate a prerenal type azotemia. It is unlikely that this represents too little intravascular volume because his weight is up and he has peripheral edema in his lower extremities. I have added albumin in an attempt to mobilize some fluid. Fortunately gas exchange has been good. 09/15: off sedation x 48h. still not following commands. very poor neuro exam. GCS 3. ? weak flicker of movement in the right upper extremity (unclear if posturing or withdraw) and slight grimace to painful stimuli. otherwise, no movement in any extremity. +cough. + corneals. pupils 2mm equal and reactive. EEG ordered. 09/16: remains off sedation for days. now worsening exam: no grimace at all to painful stimuli. GCS remains 3. EEG persistently poor, but no overt seizures. MRI ordered today without new ischemic area. anti-epileptic levels therapeutic. discussed with Dr. Bonilla: if no improvements by the end of the week, prognosis is grim at best. discussed this together at length with the family. states she does knows that he would not want trach/peg and would not want to live if he was not awake and off machines. 09/17: Elevated BUN likely contributing to his somnolence. Considering the extended period of time he was on moderate to high dose Versed it may well take many more days for that to clear as well. I am forced to hydrate him knowing that it will increase his peripheral edema. But were going to have to normalize his urea nitrogen before we can assume he is encephalopathic for some other reason. 09/18: Creatinine decline but BUN has increased again. Patient is being aggressively hydrated with hypotonic solution but were having a hard time keeping up with the was moderate diuresis from the hyperglycemia. Once again will increase the long-acting insulin coverage. Certainly elevated sodium and contributing to his somnolence. Decadron is making glucose control even harder. Underlying all this is heart failure and his ongoing retention of fluid , complicating all of these issues. 09/19: Minimal improvement and osmolality and BUN. Persistent white blood cell count elevation. No change in neurologic status. Family wishes to continue pursuing aggressively all avenues. Presently waiting for benzodiazepines to wear off. Objective Vital Signs / I&O: Vital Signs 09/18/18 08:23 09/18/18 09:00 09/18/18 09:45 Temperature Pulse Rate 95 H Respiratory Rate 16 15 16 Blood Pressure 118/65 Pulse Oximetry 99 96 09/18/18 10:00 09/18/18 11:00 09/18/18 11:20 Temperature Pulse Rate 88 103 H Respiratory Rate 24 22 17 Blood Pressure 109/59 L 114/62 Pulse Oximetry 99 99 99 09/18/18 12:00 09/18/18 13:00 09/18/18 14:00 Temperature 97.9 F Pulse Rate 103 H 89 100 H Respiratory Rate 22 13 14 Blood Pressure 122/65 110/57 L 120/72 Pulse Oximetry 99 99 99 09/18/18 14:16 09/18/18 15:00 09/18/18 16:00 Temperature 98.1 F Pulse Rate 92 H 90 Respiratory Rate 17 17 15 Blood Pressure 119/70 116/59 L Pulse Oximetry 98 99 99 09/18/18 16:35 09/18/18 17:00 09/18/18 18:00 Temperature Pulse Rate 105 H 91 H Respiratory Rate 22 18 15 Blood Pressure 122/72 102/55 L Pulse Oximetry 97 99 99 09/18/18 19:56 09/18/18 20:00 09/18/18 22:00 Temperature 98.8 F Pulse Rate 88 106 H Respiratory Rate 21 18 Blood Pressure 120/64 Pulse Oximetry 98 98 09/19/18 00:00 09/19/18 02:00 09/19/18 04:00 Temperature 98.8 F 98.6 F Pulse Rate 106 H 93 H 95 H Respiratory Rate 12 16 Blood Pressure 109/62 110/63 Pulse Oximetry 100 100 09/19/18 04:08 09/19/18 06:00 Temperature Pulse Rate 104 H Respiratory Rate 15 Blood Pressure Pulse Oximetry 100 Intake & Output 09/18/18 09/19/18 09/19/18 18:59 06:59 18:59 Intake Total 2249.225 / 2249.225 2836.225 / 2836.225 Output Total 1025 / 1025 1375 / 1375 Balance 1224.225 / 1111.913 1435.225 / 1461.225 Weight 108.1 kg 107.5 kg Intake: IV 1172.225 / 1045.437 7393.225 / 1822.225 Sodium Chloride 23.4% Inj 38.5 1009.625 / 0766.214 2919.625 / 1659.625 MEQ In Sterile Water for Inj 1, 000 ML @ 150 mls/hr IV.CONT . Q6H44M [facility] Rx#:[id number] Cerebyx Inj 130 MGPE In NS Inj 52.6 / 52.6 52.6 / 52.6 50 ML @ 216 mls/hr IV.SIG Q12HR [facility] Rx#:[id number] Vimpat Inj 100 MG In NS Inj 100 110 / 110 110 / 110 ML @ 110 mls/hr IV.SIG Q12HR [facility] Rx#:[id number] Tube Feeding 677 / 677 524 / 524 Tube Irrigant 90 / 90 Water Bolus Amount 400 / 400 400 / 400 Output: Urine 825 / 825 975 / 975 Stool 200 / 200 400 / 400 Other: Date of Last Bowel Movement 09/18/18 09/19/18 Weight On Admission 108.1 kg Result Diagrams: 09/19/18 03:52 09/19/18 03:52 Objective Remarks: gen: elderly male, in bed on ventilator heent: dressings c/d/i. neck: no jvd. trachea midline. Orally intubated chest: PRVC. equal chest rise. fio2 40%, nielson clear. cv: normal rate, regular rhythm. sinus, no JVD. abd: soft, nontender, nondistended. no guarding. Bowel sounds active extr: Some thigh edema. distal pulses 2+. neuro: GCS 3. RASS -4. no movement at all today to deep stimulation. Assessment and Plan - Assessment and Plan Plan: Assessment: 77yM presented in status epilepticus with frontal mass now s/p craniotomy and mass resection with persistently very poor neurologic exam. MRI today. remains critically ill today, off pathway, with persistently dense encephalopathy. the longer we go without neurologic improvement, the more grim the prognosis. Recommend waiting until the end of the week, but then will likely need to get palliative care involved if no improvements. Will continue hydration with quarter normal saline and see how he responds. 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 -Neurology consulted. -Neurosurgery consulted. -Cerebyx added 09/07 -Phenobarbital added -Left frontal focus of intermittent seizures persists 09/08, 09/10, 09/11. improving eeg 09/15 -Plan resection of seizure substrate and left frontal lobe -> 09/12 - ICH Old from beginning of August -Decreasing in size Resp: Acute hypoxic and hypercarbic Respiratory failure- persistent -Attempt to wean and extubate when seizure-free -No sbt while mental status is poor. -Vent bundle -DuoNeb's as needed CV: Atrial fibrillation Severe mitral and tricuspid regurgitation Pulmonary hypertension Dyslipidemia Hypertension -Metoprolol -Hold anticoagulation due to recent ICH -increase Bumex 1 mg IV BID, continue metolazone -albumin twice daily to mobilize peripheral edema -Azotemia worrisome. -Pravastatin -Metolazone -Metoprolol, and for A. fib rate control Renal: d/c bishop FEN/GI: Acute protein calorie malnutrition- severe tube feeds ICU electrolyte protocol daily bmp, mg, phos send pre-albumin Heme/ID: C. difficile infection -Patient received vancomycin and Zosyn during hospital admission August 19 and was discharged on Levaquin. -Diarrheal stool noticed day 3, antigen and toxin positive -Oral vancomycin 250 4 times daily started 09/09 Endocrine: Diabetes -Insulin sliding scale -Made more difficult by Decadron, increased Levemir 16 units subcu twice daily, continue increase sliding scale correction -Add thyroid replacement. DVT GI prophylaxis -Teds SCDs -Subcu heparin -Pepcid Overall impression: This gentleman is critically ill having sustained seizures which required intubation and mechanical ventilation for control. We are unable to wean him from the ventilator at this time. Intermittent nonconvulsive seizures were documented multiple times by EEG. Remains critically ill and neurologically unstable. Osmotic diuresis from hyperglycemia and dual diuretics may have contributed to his prerenal azotemia. Markedly elevated BUN will need to be corrected before we can do so his mental status is deteriorated. Lengthy talk with family yesterday, particularly son who is sort of spokesman. Critical care 35 minutes aside from procedures.
--- NOTE | 2018-09-19 09:35 | P.PNNEU ---
Subjective Subjective Comments: No acute events Active Medications: Active Medications Acetaminophen (Tylenol) 650 mg PO Q6H PRN PRN Reason: FOR FEVER >101F Last Admin: 09/11/18 19:57 Dose: 650 mg Al Hydroxide/Mg Hydroxide (Milk Of Magnbreanne Liq) 30 ml PO Q12H PRN PRN Reason: Mild Constipation Albuterol (Duoneb Neb (Prn)) 1 ampul NEB Q2HR NEB PRN PRN Reason: WHEEZING Last Admin: 09/17/18 19:45 Dose: 1 ampul Allopurinol (Zyloprim) 100 mg PO DAILY [facility] Last Admin: 09/18/18 08:46 Dose: 100 mg Bisacodyl (Dulcolax Supp) 10 mg RECTAL DAILY PRN PRN Reason: SEVERE CONSITIPATION Bumetanide (Bumex Inj) 1 mg IV.PUSH BID@0900,1800 [facility] Last Admin: 09/16/18 17:07 Dose: 1 mg Chlorhexidine Gluconate (Peridex 0.12% Oral Kit) 15 ml OROPHARYNG BID@0800, 2000 [facility] Last Admin: 09/18/18 20:31 Dose: 15 ml Dexamethasone Sodium Phosphate (Decadron Inj) 4 mg IV.PUSH Q6H [facility] Last Admin: 09/19/18 01:00 Dose: 4 mg Dextrose (D50w Vial) 50 ml IV.PUSH UNSCH PRN PRN Reason: PER HYPOGLYCEMIA PROTOCOL Diltiazem HCl (Cardizem Cd 24hr) 120 mg PO DAILY [facility] Last Admin: 09/07/18 12:00 Dose: Not Given Diltiazem HCl (Cardizem) 30 mg PO Q6H [facility] Last Admin: 09/19/18 01:00 Dose: 30 mg Famotidine (Pepcid Pf Inj) 10 mg IV.PUSH Q12HR [facility] Last Admin: 09/18/18 20:38 Dose: 10 mg Glucagon (Glucagon Inj) 1 mg OTHER PRN PRN PRN Reason: for Hypoglycemia Protocol Heparin Sodium (Porcine) (Heparin Inj) 5,000 units SQ Q8HR [facility] Last Admin: 09/19/18 05:46 Dose: 5,000 units Lacosamide 100 mg/ Sodium (Chloride) 110 mls @ 110 mls/hr IV.SIG Q12HR [facility] Last Infusion: 09/18/18 20:32 Dose: Infused Fosphenytoin Sodium 130 mgpe/ (Sodium Chloride) 52.6 mls @ 216 mls/hr IV.SIG Q12HR [facility] Last Infusion: 09/18/18 20:38 Dose: Infused Sodium Chloride 38.5 meq/ (Sterile Water) 1,009.625 mls @ 150 mls/hr IV.CONT .Q6H44M [facility] Last Infusion: 09/19/18 05:36 Dose: 150 mls/hr Insulin Aspart (Novolog Insulin Correctional Sugar Inj) 0 unit SQ Q6HR [facility]; Protocol Last Admin: 09/19/18 05:48 Dose: 10 unit Insulin Detemir (Levemir Inj) 16 unit SQ BID [facility] Last Admin: 09/18/18 20:22 Dose: 16 unit Lactulose (Lactulose Liq) 30 ml PO DAILY PRN PRN Reason: SEVERE CONSITIPATION Levothyroxine Sodium (Synthroid) 75 mcg PO DAILY@0600 [facility] Lorazepam (Ativan Inj) 1 mg IV.PUSH Q1H PRN PRN Reason: Agitation/sedation or Seizure Last Admin: 09/07/18 04:37 Dose: 1 mg Magnesium Oxide (Mag-Ox) 400 mg PO BID [facility] Last Admin: 09/18/18 20:43 Dose: Not Given Metolazone (Zaroxolyn) 5 mg PO DAILY [facility] Last Admin: 09/16/18 09:18 Dose: 5 mg Metoprolol Tartrate (Lopressor) 50 mg PO BID [facility] Last Admin: 09/18/18 20:33 Dose: 50 mg Miscellaneous Medication () 1 each OROPHARYNG 0000,0400,1200,1600 [facility] Last Admin: 09/19/18 04:15 Dose: 1 each Morphine Sulfate (Morphine Inj) 2 mg IV.PUSH Q2H PRN PRN Reason: PAIN SCALE 6 TO 10 Ondansetron HCl (Zofran Inj) 4 mg IV.PUSH Q6H PRN PRN Reason: NAUSEA OR VOMITING Phenobarbital Sodium (Luminal Inj) 60 mg IV.PUSH Q12HR [facility] Last Admin: 09/18/18 20:29 Dose: 60 mg Pravastatin Sodium (Pravachol) 40 mg PO HS [facility] Last Admin: 09/18/18 20:33 Dose: 40 mg Senna/Docusate Sodium (Jnaeen-Colace) 1 tab PO BID [facility] Last Admin: 09/18/18 20:34 Dose: 1 tab Sennosides (Senokot) 17.2 mg PO Q12H PRN PRN Reason: Moderate Constipation Sodium Chloride (Ns Flush) 2 ml IV.FLUSH BID [facility] Last Admin: 09/18/18 20:33 Dose: 2 ml Sodium Chloride (Ns Flush) 2 ml IV.FLUSH PRN PRN PRN Reason: FLUSH AFTER USING IV ACCESS Last Admin: 09/18/18 20:33 Dose: 2 ml Sterile Water (Free Water) 200 ml G-TUBE Q6HR [facility] Last Admin: 09/19/18 05:48 Dose: 200 ml Vancomycin HCl (Vancomycin Po) 250 mg PO QID [facility] Last Admin: 09/18/18 20:28 Dose: 250 mg Whey (Beneprotein Powder) 1 packet G-TUBE TID [facility] Last Admin: 09/18/18 18:10 Dose: 1 packet Allergies/Adverse Reactions: Allergies Allergy/AdvReac Type Severity Reaction Status Date / Time digitoxin Allergy Severe Hallucinati Verified 08/19/18 15:46 ons Review of Systems unobtainable due to endotracheal tube, unobtainable due to mental status Physical Exam Vital signs: Vital Signs 09/18/18 09:45 09/18/18 10:00 09/18/18 11:00 Temperature Pulse Rate 88 103 H Respiratory Rate 16 24 22 Blood Pressure 109/59 L 114/62 Pulse Oximetry 99 99 09/18/18 11:20 09/18/18 12:00 09/18/18 13:00 Temperature 97.9 F Pulse Rate 103 H 89 Respiratory Rate 17 22 13 Blood Pressure 122/65 110/57 L Pulse Oximetry 99 99 99 09/18/18 14:00 09/18/18 14:16 09/18/18 15:00 Temperature Pulse Rate 100 H 92 H Respiratory Rate 14 17 17 Blood Pressure 120/72 119/70 Pulse Oximetry 99 98 99 09/18/18 16:00 09/18/18 16:35 09/18/18 17:00 Temperature 98.1 F Pulse Rate 90 105 H Respiratory Rate 15 22 18 Blood Pressure 116/59 L 122/72 Pulse Oximetry 99 97 99 09/18/18 18:00 09/18/18 19:56 09/18/18 20:00 Temperature 98.8 F Pulse Rate 91 H 88 Respiratory Rate 15 21 18 Blood Pressure 102/55 L 120/64 Pulse Oximetry 99 98 98 09/18/18 22:00 09/19/18 00:00 09/19/18 02:00 Temperature 98.8 F Pulse Rate 106 H 106 H 93 H Respiratory Rate 12 Blood Pressure 109/62 Pulse Oximetry 100 09/19/18 04:00 09/19/18 04:08 09/19/18 06:00 Temperature 98.6 F Pulse Rate 95 H 104 H Respiratory Rate 16 15 Blood Pressure 110/63 Pulse Oximetry 100 100 Intake & Output 09/18/18 09/19/18 09/19/18 18:59 06:59 18:59 Intake Total 2249.225 / 2249.225 2836.225 / 2836.225 Output Total 1025 / 1025 1375 / 1375 Balance 1224.225 / 6148.754 5152.225 / 1461.225 Weight 108.1 kg 107.5 kg Intake: IV 1172.225 / 9604.844 0371.225 / 1822.225 Sodium Chloride 23.4% Inj 38.5 1009.625 / 1420.140 3840.625 / 1659.625 MEQ In Sterile Water for Inj 1, 000 ML @ 150 mls/hr IV.CONT . Q6H44M [facility] Rx#:[id number] Cerebyx Inj 130 MGPE In NS Inj 52.6 / 52.6 52.6 / 52.6 50 ML @ 216 mls/hr IV.SIG Q12HR [facility] Rx#:[id number] Vimpat Inj 100 MG In NS Inj 100 110 / 110 110 / 110 ML @ 110 mls/hr IV.SIG Q12HR [facility] Rx#:[id number] Tube Feeding 677 / 677 524 / 524 Tube Irrigant 90 / 90 Water Bolus Amount 400 / 400 400 / 400 Output: Urine 825 / 825 975 / 975 Stool 200 / 200 400 / 400 Other: Date of Last Bowel Movement 09/18/18 09/19/18 Weight On Admission 108.1 kg Narrative: GENERAL: in NAD, SKIN: Warm and dry. HEAD: Atraumatic. Normocephalic. EYES: Sluggishly reactive ENT: Intubated NECK: Intubated CARDIOVASCULAR: Regular rate and rhythm. RESPIRATORY: Intubated GASTROINTESTINAL: Abdomen soft, non-tender, nondistended. MUSCULOSKELETAL: No obvious deformities. Bilateral lower extremity edema NEUROLOGICAL: Intubated, coma state nonverbal not following, grimace to deep tactile, OU 3/2 mm sluggishly reactive no gaze deviation, has corneal reflex OU , no localization PSYCHIATRIC: Intubated, calm - Constitutional no acute distress - Urinary Catheter Management Indwelling Urethral Catheter Cath placed during this visit: yes, but has since been removed by the nurse Reason for continuing: Decision to DC catheter Insertion date: 09/06/18 Insertion time: 23:00 Removal date: 09/08/18 Removal time: 18:21 Straight Cath placed during this visit: yes, but has since been removed by the nurse Reason for continuing: Decision to DC catheter Insertion date: 09/09/18 Insertion time: 02:20 Removal date: 09/10/18 Removal time: 12:00 Indwelling Temp Sensing Catheter Cath placed during this visit: yes Reason for continuing: Acute urinary retention Insertion date: 09/12/18 Insertion time: 15:30 Objective Laboratory Results - last 24 hr 09/18/18 09/18/18 09/19/18 11:48 18:04 00:35 WBC RBC Hgb Hct MCV MCH MCHC RDW Plt Count MPV Sodium Potassium Chloride Carbon Dioxide Anion Gap BUN Creatinine Estimated GFR POC Glucose 247 H 165 H 189 H Random Glucose Calcium Phosphorus Magnesium B-Natriuretic Peptide 09/19/18 09/19/18 09/19/18 03:52 03:52 03:52 WBC 17.8 H RBC 2.82 L Hgb 9.8 L Hct 31.0 L MCV 109.9 H MCH 34.6 H MCHC 31.5 L RDW 17.0 Plt Count 168 MPV 9.5 Sodium 153 H Potassium 4.9 Chloride 119 H Carbon Dioxide 25.9 Anion Gap 8 BUN 116 H Creatinine 1.30 Estimated GFR 53 L POC Glucose Random Glucose 208 H Calcium 8.4 L Phosphorus 2.7 Magnesium 2.7 H B-Natriuretic Peptide 301 H Review/Management - Diagnosis (1) Localization-related (focal) (partial) symptomatic epilepsy and epileptic syndromes with complex partial seizures, intractable, with status epilepticus Code(s): G40.211 - Localization-related (focal) (partial) symptomatic epilepsy and epileptic syndromes with complex partial seizures, intractable, with status epilepticus Status: Acute Current Visit: Yes (2) Atrial fibrillation Code(s): I48.91 - Unspecified atrial fibrillation Status: Acute Current Visit: Yes (3) Acute encephalopathy Code(s): G93.40 - Encephalopathy, unspecified Status: Acute Current Visit: Yes (4) ICH (intracerebral hemorrhage) Code(s): I61.9 - Nontraumatic intracerebral hemorrhage, unspecified Status: Acute Current Visit: No - Review/Management Plan: Persistent comatose state. Off Versed MRI brain scan shows evacuation of left frontal hemorrhage perilesional edema There does appear to be increased signal bihemispheric sulcal regions on FLAIR imaging; this was not seen on his previous MRI scan. possibly related to fluid shifts, metabolic, seizure, infectious Progressive hypernatremia and increasing BUN and creatinine level. Critical care following; suspect this is contributing to his somnolent state Seizure medication levels in range EEG showing more breech rhythm less focal seizure activity Recommendations Exam unchanged Follow-up EEG Follow-up follow-up seizure medication levels Palliative care evaluation reasonable vs watch over the weekend (4) ICH (intracerebral hemorrhage) Qualifiers: Intracerebral hemorrhage etiology: traumatic Encounter type: initial encounter Laterality: left Loss of consciousness presence/duration: with LOC of unspecified duration Qualified Code(s): S06.359A - Traumatic hemorrhage of left cerebrum with loss of consciousness of unspecified duration, initial encounter
--- NOTE | 2018-09-19 09:41 | XR ---
EXAM DATE: 09/19/2018 9:33 AM EDT AGE/SEX: 77 years / Male INDICATIONS: Fever. CLINICAL DATA: This is the patient's subsequent encounter. Patient reports that signs and symptoms h ave been present for 2 weeks and indicates a pain score of Nonresponsive. MEDICAL/SURGICAL HISTORY: Diabetes mellitus type II. CABG. ICD Placement. COMPARISON: [facility], CHEST 1V SINGLE AP, 09/11/2018. . FINDINGS: Stable ETT and NGT. Stable left single lead AICD device. Cardiac silhouette remains enlarged with dif fuse interstitial prominence and indistinct central pulmonary vascularity. Slight improved aeration o f the right lower lung zone. Persistent retrocardiac opacity. Remainder of exam is unchanged. CONCLUSION: 1. Stable tubes and lines, as above. 2. Cardiomegaly with stable positive fluid balance. 3. Persistent retrocardiac opacity likely reflecting left basilar consolidation/effusion. 4. Improved aeration of the right lower lung zone. Electronically signed by: Hector Pablo MD 09/19/2018 9:40 AM EDT
[2018-09-19] MEDS: Famotidine PF Inj 20 MG/2 ML Vial IV.PUSH SCH ×2 (09:42→20:49)
[2018-09-19] MEDS: PHENobarbital Inj 130 MG/ML Vial IV.PUSH SCH ×2 (09:44→20:49)
[2018-09-19] MEDS: Insulin Detemir Inj 1,000 UNIT/10 ML Vial SQ SCH (09:45)
[2018-09-19] MEDS: Magnesium Oxide 400 MG Tablet PO SCH ×2 (09:46→20:55)
[2018-09-19] MEDS: Senna/Docusate Sodium 8.6/50 MG Tablet PO SCH ×2 (09:46→20:55)
[2018-09-19] MEDS: Beneprotein Powder Packet G-TUBE SCH ×3 (09:47→18:29)
[2018-09-19] MEDS: Chlorhexidine 0.12% Oral Kit 15 ML UDC OROPHARYNG SCH ×2 (09:47→20:55)
[2018-09-19] MEDS: Lacosamide Inj 100 MG in Sodium Chlor 0.9% Inj 100 ML IV.SIG SCH ×2 (09:48→20:56)
[2018-09-19 09:59] LABS: Phenytoin (Dilantin) 10.2 mcg/mL (10.0-20.0)
[2018-09-19] MEDS: Fosphenytoin Inj 130 MGPE in Sodium Chlor 0.9% Inj 50 ML IV.SIG SCH ×2 (11:00→20:41)
[2018-09-19] MEDS: Metoprolol Tartrate 50 MG Tablet PO SCH ×2 (13:35→20:55)
[2018-09-19] MEDS: Allopurinol 100 MG Tablet PO SCH (13:36)
--- NOTE | 2018-09-19 15:14 | P.PNNS ---
Subjective Interval history: no changes neurologically, intubated, comatose Physical Exam Vital signs: Vital Signs 09/18/18 16:00 09/18/18 16:35 09/18/18 17:00 Temperature 98.1 F Pulse Rate 90 105 H Respiratory Rate 15 22 18 Blood Pressure 116/59 L 122/72 Pulse Oximetry 99 97 99 09/18/18 18:00 09/18/18 19:56 09/18/18 20:00 Temperature 98.8 F Pulse Rate 91 H 88 Respiratory Rate 15 21 18 Blood Pressure 102/55 L 120/64 Pulse Oximetry 99 98 98 09/18/18 22:00 09/19/18 00:00 09/19/18 02:00 Temperature 98.8 F Pulse Rate 106 H 106 H 93 H Respiratory Rate 12 Blood Pressure 109/62 Pulse Oximetry 100 09/19/18 04:00 09/19/18 04:08 09/19/18 06:00 Temperature 98.6 F Pulse Rate 95 H 104 H Respiratory Rate 16 15 Blood Pressure 110/63 Pulse Oximetry 100 100 09/19/18 09:15 09/19/18 13:10 Temperature Pulse Rate Respiratory Rate 14 14 Blood Pressure Pulse Oximetry 100 99 Intake & Output 09/18/18 09/19/18 09/19/18 18:59 06:59 18:59 Intake Total 2249.225 / 2249.225 2836.225 / 2836.225 359.625 / 359.625 Output Total 1025 / 1025 1375 / 1375 Balance 1224.225 / 6164.865 8665.225 / 1461.225 359.625 / 359.625 Weight 108.1 kg 107.5 kg Intake: IV 1172.225 / 0807.742 6248.225 / 1822.225 359.625 / 359.625 Sodium Chloride 23.4% Inj 38.5 1009.625 / 7496.005 4974.625 / 1659.625 359.625 / 359.625 MEQ In Sterile Water for Inj 1, 000 ML @ 150 mls/hr IV.CONT . Q6H44M [facility] Rx#:[id number] Cerebyx Inj 130 MGPE In NS Inj 52.6 / 52.6 52.6 / 52.6 50 ML @ 216 mls/hr IV.SIG Q12HR [facility] Rx#:[id number] Vimpat Inj 100 MG In NS Inj 100 110 / 110 110 / 110 ML @ 110 mls/hr IV.SIG Q12HR [facility] Rx#:[id number] Tube Feeding 677 / 677 524 / 524 Tube Irrigant 90 / 90 Water Bolus Amount 400 / 400 400 / 400 Output: Urine 825 / 825 975 / 975 Stool 200 / 200 400 / 400 Other: Date of Last Bowel Movement 09/18/18 09/19/18 Weight On Admission 108.1 kg Narrative: comatose, no eye opening not following commands no purposeful movement seen pupils equal, sluggish react left scalp wound clean and dry healing well, no response to pain stimulation no seizure activities - Urinary Catheter Management Indwelling Urethral Catheter Cath placed during this visit: yes, but has since been removed by the nurse Reason for continuing: Decision to DC catheter Insertion date: 09/06/18 Insertion time: 23:00 Removal date: 09/08/18 Removal time: 18:21 Straight Cath placed during this visit: yes, but has since been removed by the nurse Reason for continuing: Decision to DC catheter Insertion date: 09/09/18 Insertion time: 02:20 Removal date: 09/10/18 Removal time: 12:00 Indwelling Temp Sensing Catheter Cath placed during this visit: yes Reason for continuing: Acute urinary retention Insertion date: 09/12/18 Insertion time: 15:30 Assessment and Plan - Plan 77yoM with intractable seizures s/p craniotomy 09/12 (Jonel) for resection of hemorrhagic seizure focus. Head MRI 09/16/18 00:00 CONCLUSION: 1. Postsurgical changes left frontal lobe with minimal basilar edema and minimal residual hemorrhage. 2. No midline shift or mass effect. 3. Cerebral atrophy. 4. No acute infarction. 5. Old left cerebellar infarct. MRI Brain reviewed by Dr. Remy cont follow up neuro exam neuro following cont Anti seizure medication cont critical care dc anisa 09/26/18
--- NOTE | 2018-09-19 18:50 | MG ---
cc: Love Goldman MD, Mandeep MD ELECTROENCEPHALOGRAM NUMBER: [id number] REFERRING PHYSICIAN: Abisai Bonilla MD AGE: 77 CLINICAL HISTORY: In room 1303. With photic stimulation. No sedation. Intubated. Moving all 4 extremities. Some passive eye opening, looking upwards. Right frontal craniotomy for evacuation of a hematoma on 09/12/2018, found seizing, given 2 of Versed and continued to seize and given 2 more. Postictal but still had contracture of the right upper extremity. 1. History of atrial fibrillation, diabetes, gout. On Decadron, Cerebyx. DESCRIPTION OF RECORD: Overall background is slow, predominantly 2-3 Hz. Some spikes are seen as early as epoch 23 as well as some occasional phase reversals. This is seen over the left hemisphere. It is not in a continuous fashion but fairly frequent. Photic stimulation without any significant driving response. IMPRESSION: Abnormal electroencephalogram with abnormal findings over the left hemisphere such as spikes and phase reversals that may be foci for epileptogenicity in the patient; however, no active seizures were seen. Clinical correlation. MD DAVE Gomez/david , 06:30 PM , 06:34 PM
[2018-09-20] MEDS: Heparin - SQ 10,000 UNITS/ML Vial SQ SCH ×3 (03:14→21:06)
[2018-09-20] MEDS: dilTIAZem 30 MG Tablet PO SCH ×4 (03:15→21:08)
[2018-09-20] MEDS: Insulin Detemir Inj 1,000 UNIT/10 ML Vial SQ SCH ×3 (03:16→21:09)
[2018-09-20] MEDS: Oral Hygiene Kit OROPHARYNG SCH ×4 (03:17→15:47)
[2018-09-20] MEDS: Insulin NovoLOG Aspart Correctional Sugar Inj SQ SCH ×3 (03:17→17:43)
[2018-09-20 05:11] LABS: Hematocrit 32.3 % (39.0-51.0); Hemoglobin 10.4 gm/dL (13.0-17.0); Mean Corpuscular HGB Conc 32.2 % (32.0-36.0); Mean Corpuscular Hemoglobin 34.5 pg (27.0-34.0); Mean Corpuscular Volume 107.2 fL (80.0-100.0); Mean Platelet Volume 9.8 fL (7.0-11.0); Platelet Count 186 th/mm3 (150-450); Red Blood Count 3.01 mil/mm3 (4.50-5.90); Red Cell Distribution Width 17.4 % (11.6-17.2); White Blood Count 19.8 th/mm3 (4.0-11.0)
[2018-09-20 05:44] LABS: Calcium 8.6 mg/dL (8.5-10.1); Carbon Dioxide 25.4 meq/L (21.0-32.0); Magnesium 2.9 mg/dL (1.5-2.5); Phosphorus 3.5 mg/dL (2.5-4.9); Potassium 5.2 meq/L (3.5-5.1)
[2018-09-20 05:47] LABS: Phenytoin (Dilantin) 16.5 mcg/mL (10.0-20.0)
[2018-09-20] MEDS: Lacosamide Inj 100 MG in Sodium Chlor 0.9% Inj 100 ML IV.SIG SCH ×2 (08:42→21:05)
[2018-09-20] MEDS: Allopurinol 100 MG Tablet PO SCH (08:42)
--- NOTE | 2018-09-20 08:42 | P.PNNS ---
Subjective Interval history: No acute events overnight. Stable. Remains intubated. Physical Exam Vital signs: Vital Signs 09/19/18 09:00 09/19/18 09:15 09/19/18 09:46 Temperature Pulse Rate 98 H 92 H Respiratory Rate 14 14 18 Blood Pressure 114/68 113/75 Pulse Oximetry 100 100 100 09/19/18 10:00 09/19/18 11:00 09/19/18 12:00 Temperature 98.5 F Pulse Rate 94 H 90 88 Respiratory Rate 17 14 16 Blood Pressure 133/78 112/62 115/58 L Pulse Oximetry 100 98 100 09/19/18 13:00 09/19/18 13:10 09/19/18 14:00 Temperature Pulse Rate 90 100 H Respiratory Rate 13 14 14 Blood Pressure 121/76 121/72 Pulse Oximetry 98 99 99 09/19/18 15:00 09/19/18 16:00 09/19/18 18:00 Temperature Pulse Rate 101 H 100 H 101 H Respiratory Rate 15 17 Blood Pressure 114/72 118/75 Pulse Oximetry 99 99 09/19/18 18:41 09/19/18 20:00 09/19/18 20:08 Temperature 98.7 F Pulse Rate 101 H 102 H Respiratory Rate 14 17 Blood Pressure 120/70 Pulse Oximetry 100 99 09/19/18 22:00 09/20/18 00:00 09/20/18 02:00 Temperature 98.4 F Pulse Rate 87 86 84 Respiratory Rate Blood Pressure 110/71 Pulse Oximetry 100 09/20/18 04:00 09/20/18 06:00 Temperature 98.7 F Pulse Rate 98 H 82 Respiratory Rate 14 Blood Pressure 109/71 Pulse Oximetry 100 Intake & Output 09/19/18 09/20/18 09/20/18 18:59 06:59 18:59 Intake Total 1518.225 / 1518.225 482.6 / 482.6 Output Total 750 / 750 800 / 800 Balance 768.225 / 768.225 -317.4 / -317.4 Intake: IV 522.225 / 522.225 162.6 / 162.6 Sodium Chloride 23.4% Inj 38.5 359.625 / 359.625 MEQ In Sterile Water for Inj 1, 000 ML @ 150 mls/hr IV.CONT . Q6H44M [facility] Rx#:[id number] Cerebyx Inj 130 MGPE In NS Inj 52.6 / 52.6 52.6 / 52.6 50 ML @ 216 mls/hr IV.SIG Q12HR [facility] Rx#:[id number] Vimpat Inj 100 MG In NS Inj 100 110 / 110 110 / 110 ML @ 110 mls/hr IV.SIG Q12HR [facility] Rx#:[id number] Tube Feeding 536 / 536 Tube Irrigant 60 / 60 Water Bolus Amount 400 / 400 320 / 320 Output: Urine 700 / 700 700 / 700 Stool 50 / 50 100 / 100 Other: Date of Last Bowel Movement 09/19/18 - Routine Neurological Exam Intubated, no eye opening. Pupils equal. No response to noxious stimuli. Incision clean and dry. - Urinary Catheter Management Indwelling Urethral Catheter Cath placed during this visit: yes, but has since been removed by the nurse Reason for continuing: Decision to DC catheter Insertion date: 09/06/18 Insertion time: 23:00 Removal date: 09/08/18 Removal time: 18:21 Straight Cath placed during this visit: yes, but has since been removed by the nurse Reason for continuing: Decision to DC catheter Insertion date: 09/09/18 Insertion time: 02:20 Removal date: 09/10/18 Removal time: 12:00 Indwelling Temp Sensing Catheter Cath placed during this visit: yes Reason for continuing: Acute urinary retention Insertion date: 09/12/18 Insertion time: 15:30 Assessment and Plan - Plan 77yoM with intractable seizures s/p craniotomy 09/12 (Jonel) for resection of hemorrhagic seizure focus. Head MRI 09/16/18 00:00 CONCLUSION: 1. Postsurgical changes left frontal lobe with minimal basilar edema and minimal residual hemorrhage. 2. No midline shift or mass effect. 3. Cerebral atrophy. 4. No acute infarction. 5. Old left cerebellar infarct. Exam remains stably poor, no plan for further interventions from a surgical standpoint neuro following cont Anti seizure medication cont critical care dc anisa 09/26/18
[2018-09-20] MEDS: Fosphenytoin Inj 130 MGPE in Sodium Chlor 0.9% Inj 50 ML IV.SIG SCH ×2 (08:43→21:07)
[2018-09-20] MEDS: Famotidine PF Inj 20 MG/2 ML Vial IV.PUSH SCH ×2 (08:43→21:07)
[2018-09-20] MEDS: PHENobarbital Inj 130 MG/ML Vial IV.PUSH SCH ×2 (08:44→21:06)
[2018-09-20] MEDS: Magnesium Oxide 400 MG Tablet PO SCH ×2 (08:44→21:08)
[2018-09-20] MEDS: Chlorhexidine 0.12% Oral Kit 15 ML UDC OROPHARYNG SCH ×2 (08:45→21:09)
[2018-09-20] MEDS: Beneprotein Powder Packet G-TUBE SCH ×3 (08:45→18:00)
[2018-09-20] MEDS: Metoprolol Tartrate 50 MG Tablet PO SCH ×2 (09:00→21:08)
[2018-09-20] MEDS: Senna/Docusate Sodium 8.6/50 MG Tablet PO SCH ×2 (11:13→21:08)
[2018-09-20] MEDS: Sodium Chloride 23.4% Inj 38.5 MEQ in Water for Inj, Sterile 1,000 ML IV.CONT SCH (12:41)
--- NOTE | 2018-09-20 14:55 | P.PNCC ---
Subjective Subjective Remarks/Hospital Course: 69-year-old male with a history of recent ICH, and seizure disorder presents from home after he was seizing. Called paramedics arrived to find him seizing in the setting they gave him 2 of Versed to break his seizure after they establish IV access patient then in route has another seizure and they gave him 2 more Versed. The patient was a postictal voiding episode and became in respiratory distress needed to be intubated by the paramedics. They intubated him and arrived to emergency department sedated intubated and possibly seizing with contraction of the right hand. He was started on a propofol drip to keep him sedated as well as seizure-free and he has been admitted to the ICU. 09/07: No more seizure activity. Weaned to propofol 5 mics per kilogram per minute. AED restarted. CAT scan shows diminished size of left frontal lobe hematoma compared to prior study. 09/08: No more obvious seizure activity. Patient withdraws limbs aside from left foot. He grimaces to noxious stimulation. Breathes spontaneously over the ventilator. We need to confirm that he is indeed stopped seizing. Cerebyx added to Keppra. 09/09: Focus of left frontal intermittent seizure activity persists on 09/08. Still on Versed drip infusion and mechanical ventilation. Neurology service continues to adjust AED regimen. MRI yesterday without other significant injury aside from the known left frontal hematoma. 09/10: Focal area of intermittent seizure frontal lobe persisted yesterday on EEG. AED doses being adjusted. Urine output marginal, will reinstitute loop diuretic along with metolazone. Underlying cardiac function impaired at baseline with severe mitral and tricuspid regurgitation along with pulmonary hypertension as expected. Most recent echo is about a month ago. 09/11: Continued left fronto temporal seizure activity despite 3 AEDs. Juxtaposition of this 2 cm maturing left frontal lobe hematoma to the seizure activity is probably not coincidental. I have discussed with the family the concept of excising the mature hematoma in an attempt to attenuate the seizure activity. 09/12: Patient required versed yesterday for elevated airway pressures possibly related to seizure activity. No problems after Versed bolus and restarted. Plan is for resection of the seizure substrate in the left frontal lobe today. 09/13: Status post resection of left frontal lobe hemorrhagic mass yesterday. Return from OR on mechanical ventilation. Stable hemodynamics. Patient remains neurologically unstable with refractory seizures for which he underwent mass resection. 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 All sedation was stopped late Saturday and we are waiting for the gentleman to wake up. By cardiac echo obtained during his last admission he has both severe mitral and tricuspid regurgitation. He tends to retain fluid and is been chronically on Bumex 2 mg and metolazone 5 mg daily. Renal function tests indicate a prerenal type azotemia. It is unlikely that this represents too little intravascular volume because his weight is up and he has peripheral edema in his lower extremities. I have added albumin in an attempt to mobilize some fluid. Fortunately gas exchange has been good. 09/15: off sedation x 48h. still not following commands. very poor neuro exam. GCS 3. ? weak flicker of movement in the right upper extremity (unclear if posturing or withdraw) and slight grimace to painful stimuli. otherwise, no movement in any extremity. +cough. + corneals. pupils 2mm equal and reactive. EEG ordered. 09/16: remains off sedation for days. now worsening exam: no grimace at all to painful stimuli. GCS remains 3. EEG persistently poor, but no overt seizures. MRI ordered today without new ischemic area. anti-epileptic levels therapeutic. discussed with Dr. Bonilla: if no improvements by the end of the week, prognosis is grim at best. discussed this together at length with the family. states she does knows that he would not want trach/peg and would not want to live if he was not awake and off machines. 09/17: Elevated BUN likely contributing to his somnolence. Considering the extended period of time he was on moderate to high dose Versed it may well take many more days for that to clear as well. I am forced to hydrate him knowing that it will increase his peripheral edema. But were going to have to normalize his urea nitrogen before we can assume he is encephalopathic for some other reason. 09/18: Creatinine decline but BUN has increased again. Patient is being aggressively hydrated with hypotonic solution but were having a hard time keeping up with the was moderate diuresis from the hyperglycemia. Once again will increase the long-acting insulin coverage. Certainly elevated sodium and contributing to his somnolence. Decadron is making glucose control even harder. Underlying all this is heart failure and his ongoing retention of fluid , complicating all of these issues. 09/19: Minimal improvement and osmolality and BUN. Persistent white blood cell count elevation. No change in neurologic status. Family wishes to continue pursuing aggressively all avenues. Presently waiting for benzodiazepines to wear off. 09/20: Aside from some mouth movements there is no real increase in continuous activity nor withdrawal. Electrolytes require correction today after diuretics changed for the treatment of chronic heart failure. Objective Vital Signs / I&O: Vital Signs 09/19/18 15:00 09/19/18 16:00 09/19/18 18:00 Temperature Pulse Rate 101 H 100 H 101 H Respiratory Rate 15 17 Blood Pressure 114/72 118/75 Pulse Oximetry 99 99 09/19/18 18:41 09/19/18 20:00 09/19/18 20:08 Temperature 98.7 F Pulse Rate 101 H 102 H Respiratory Rate 14 17 Blood Pressure 120/70 Pulse Oximetry 100 99 09/19/18 22:00 09/20/18 00:00 09/20/18 02:00 Temperature 98.4 F Pulse Rate 87 86 84 Respiratory Rate Blood Pressure 110/71 Pulse Oximetry 100 09/20/18 04:00 09/20/18 06:00 09/20/18 08:00 Temperature 98.7 F 96.6 F L Pulse Rate 98 H 82 101 H Respiratory Rate 14 14 Blood Pressure 109/71 98/63 L Pulse Oximetry 100 99 09/20/18 09:01 09/20/18 10:00 09/20/18 12:00 Temperature 97.8 F Pulse Rate 85 96 H Respiratory Rate 12 18 Blood Pressure 105/70 Pulse Oximetry 100 100 09/20/18 13:08 Temperature Pulse Rate Respiratory Rate 24 Blood Pressure Pulse Oximetry 99 Intake & Output 09/19/18 09/20/18 09/20/18 18:59 06:59 18:59 Intake Total 2518.225 / 2518.225 482.6 / 482.6 162.6 / 162.6 Output Total 750 / 750 800 / 800 Balance 1768.225 / 1768.225 -317.4 / -317.4 162.6 / 162.6 Intake: IV 1522.225 / 1522.225 162.6 / 162.6 162.6 / 162.6 Sodium Chloride 23.4% Inj 38.5 1359.625 / 1359.625 MEQ In Sterile Water for Inj 1, 000 ML @ 150 mls/hr IV.CONT . Q6H44M [facility] Rx#:[id number] Cerebyx Inj 130 MGPE In NS Inj 52.6 / 52.6 52.6 / 52.6 52.6 / 52.6 50 ML @ 216 mls/hr IV.SIG Q12HR [facility] Rx#:[id number] Vimpat Inj 100 MG In NS Inj 100 110 / 110 110 / 110 110 / 110 ML @ 110 mls/hr IV.SIG Q12HR [facility] Rx#:[id number] Tube Feeding 536 / 536 Tube Irrigant 60 / 60 Water Bolus Amount 400 / 400 320 / 320 Output: Urine 700 / 700 700 / 700 Stool 50 / 50 100 / 100 Other: Date of Last Bowel Movement 09/19/18 09/20/18 Result Diagrams: 09/20/18 03:40 09/20/18 03:40 Objective Remarks: gen: elderly male, in bed on ventilator heent: dressings c/d/i. neck: no jvd. trachea midline. Orally intubated chest: PRVC. equal chest rise. fio2 40%, nielson clear. cv: normal rate, regular rhythm. sinus, no JVD. abd: soft, nontender, nondistended. no guarding. Bowel sounds active extr: Some thigh edema. distal pulses 2+. neuro: GCS 3. RASS -4. no movement at all today to deep stimulation. Some occasional mouth and jaw movement. Assessment and Plan - Assessment and Plan Plan: Assessment: 77yM presented in status epilepticus with frontal mass now s/p craniotomy and mass resection with persistently very poor neurologic exam. MRI today. remains critically ill today, off pathway, with persistently dense encephalopathy. the longer we go without neurologic improvement, the more grim the prognosis. Recommend waiting until the end of the week, but then will likely need to get palliative care involved if no improvements. Will continue hydration with quarter normal saline and see how he responds. 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 -Neurology consulted. -Neurosurgery consulted. -Cerebyx added 09/07 -Phenobarbital added -Left frontal focus of intermittent seizures persists 09/08, 09/10, 09/11. improving eeg 09/15 -Plan resection of seizure substrate and left frontal lobe -> 09/12 - ICH Old from beginning of August -Decreasing in size Resp: Acute hypoxic and hypercarbic Respiratory failure- persistent -Attempt to wean and extubate when seizure-free -No sbt while mental status is poor. -Vent bundle -DuoNeb's as needed CV: Atrial fibrillation Severe mitral and tricuspid regurgitation Pulmonary hypertension Dyslipidemia Hypertension -Metoprolol -Hold anticoagulation due to recent ICH -increase Bumex 1 mg IV BID, continue metolazone -albumin twice daily to mobilize peripheral edema -Azotemia worrisome. -Pravastatin -Metolazone -Metoprolol, and for A. fib rate control Renal: d/c bishop FEN/GI: Acute protein calorie malnutrition- severe tube feeds ICU electrolyte protocol daily bmp, mg, phos send pre-albumin Heme/ID: C. difficile infection -Patient received vancomycin and Zosyn during hospital admission August 19 and was discharged on Levaquin. -Diarrheal stool noticed day 3, antigen and toxin positive -Oral vancomycin 250 4 times daily started 09/09 Endocrine: Diabetes -Insulin sliding scale -Made more difficult by Decadron, increased Levemir 16 units subcu twice daily, continue increase sliding scale correction -Add thyroid replacement. DVT GI prophylaxis -Teds SCDs -Subcu heparin -Pepcid Overall impression: This gentleman is critically ill having sustained seizures which required intubation and mechanical ventilation for control. We are unable to wean him from the ventilator at this time. Intermittent nonconvulsive seizures were documented multiple times by EEG. Remains critically ill and neurologically unstable. Osmotic diuresis from hyperglycemia and dual diuretics may have contributed to his prerenal azotemia. Markedly elevated BUN will need to be corrected before we can do so his mental status is deteriorated. Lengthy talk with family again today, particularly son who is sort of spokesman , , and nephew. Critical care 35 minutes aside from procedures.
--- NOTE | 2018-09-20 15:20 | XR ---
EXAM DATE: 09/20/2018 3:10 PM EDT AGE/SEX: 77 years / Male INDICATIONS: Fever. CLINICAL DATA: This is the patient's initial encounter. Patient reports that signs and symptoms have been present for 1 day and indicates a pain score of Nonresponsive. MEDICAL/SURGICAL HISTORY: Diabetes mellitus type II. . CABG. ICD Placement. [place] [facility] [place] S[place], 09/19/2018. . FINDINGS: Single AP view the chest. Median sternotomy wires are again seen. Endotracheal tube and nasogastric t ube remain in place. AICD noted. Cardiac silhouette is enlarged. Mild patchy opacity at the lung base s unchanged. CONCLUSION: No significant interval change. Mild patchy left greater than right basilar lung opacity again seen. Electronically signed by: Al Bowen MD 09/20/2018 3:19 PM EDT
[2018-09-21] MEDS: dilTIAZem 30 MG Tablet PO SCH ×4 (01:11→22:03)
[2018-09-21] MEDS: Oral Hygiene Kit OROPHARYNG SCH ×3 (01:40→15:40)
[2018-09-21] MEDS: Insulin NovoLOG Aspart Correctional Sugar Inj SQ SCH ×3 (01:42→18:02)
[2018-09-21 04:20] LABS: Hematocrit 28.2 % (39.0-51.0); Mean Corpuscular HGB Conc 32.1 % (32.0-36.0); Mean Corpuscular Hemoglobin 34.8 pg (27.0-34.0); Mean Corpuscular Volume 108.6 fL (80.0-100.0); Mean Platelet Volume 10.1 fL (7.0-11.0); Platelet Count 193 th/mm3 (150-450); Red Blood Count 2.59 mil/mm3 (4.50-5.90); Red Cell Distribution Width 17.5 % (11.6-17.2); White Blood Count 24.7 th/mm3 (4.0-11.0)
[2018-09-21 04:54] LABS: Calcium 7.9 mg/dL (8.5-10.1); Carbon Dioxide 24.2 meq/L (21.0-32.0); Magnesium 2.7 mg/dL (1.5-2.5); Phenytoin (Dilantin) 14.5 mcg/mL (10.0-20.0)
[2018-09-21 04:57] LABS: Potassium 5.8 meq/L (3.5-5.1)
[2018-09-21] MEDS: Heparin - SQ 10,000 UNITS/ML Vial SQ SCH ×3 (05:12→22:02)
[2018-09-21] MEDS: Levothyroxine 75 MCG Tablet PO SCH (05:13)
[2018-09-21] MEDS: Lacosamide Inj 100 MG in Sodium Chlor 0.9% Inj 100 ML IV.SIG SCH ×2 (08:51→22:04)
[2018-09-21] MEDS: Beneprotein Powder Packet G-TUBE SCH ×2 (09:00→14:15)
[2018-09-21] MEDS: Metoprolol Tartrate 50 MG Tablet PO SCH ×2 (09:13→22:04)
[2018-09-21] MEDS: Fosphenytoin Inj 130 MGPE in Sodium Chlor 0.9% Inj 50 ML IV.SIG SCH ×2 (09:14→21:58)
[2018-09-21] MEDS: PHENobarbital Inj 130 MG/ML Vial IV.PUSH SCH ×2 (09:15→23:17)
[2018-09-21] MEDS: Famotidine PF Inj 20 MG/2 ML Vial IV.PUSH SCH ×2 (09:15→22:01)
[2018-09-21] MEDS: Chlorhexidine 0.12% Oral Kit 15 ML UDC OROPHARYNG SCH ×2 (09:16→22:06)
[2018-09-21] MEDS: Senna/Docusate Sodium 8.6/50 MG Tablet PO SCH ×2 (09:16→23:18)
[2018-09-21] MEDS: Allopurinol 100 MG Tablet PO SCH (09:16)
--- NOTE | 2018-09-21 09:28 | P.PNNS ---
Subjective Interval history: No acute events overnight. Exam remains very poor, completely off sedation. Physical Exam Vital signs: Vital Signs 09/20/18 11:00 09/20/18 12:00 09/20/18 13:00 Temperature 97.8 F Pulse Rate 96 H 96 H 97 H Respiratory Rate 18 Blood Pressure 108/67 105/70 112/73 Pulse Oximetry 99 99 99 09/20/18 13:08 09/20/18 14:00 09/20/18 15:00 Temperature Pulse Rate 98 H 98 H Respiratory Rate 24 Blood Pressure 113/72 115/78 Pulse Oximetry 99 99 99 09/20/18 16:00 09/20/18 17:00 09/20/18 18:00 Temperature 97.8 F Pulse Rate 85 84 75 Respiratory Rate 16 Blood Pressure 116/77 113/68 116/66 Pulse Oximetry 91 L 93 L 100 09/20/18 18:06 09/20/18 19:00 09/20/18 20:00 Temperature 98.7 F Pulse Rate 95 H 93 H Respiratory Rate 17 Blood Pressure 112/72 113/78 Pulse Oximetry 99 100 100 09/20/18 20:05 09/20/18 21:00 09/20/18 22:00 Temperature Pulse Rate 95 H 79 Respiratory Rate 17 Blood Pressure 115/69 111/62 Pulse Oximetry 99 98 99 09/20/18 23:00 09/21/18 00:00 09/21/18 00:28 Temperature 98.7 F Pulse Rate 80 78 Respiratory Rate 18 19 Blood Pressure 109/66 106/62 Pulse Oximetry 99 96 100 09/21/18 00:59 09/21/18 01:00 EST 09/21/18 01:06 EST Temperature Pulse Rate 87 75 Respiratory Rate Blood Pressure 114/76 Pulse Oximetry 99 98 09/21/18 02:00 09/21/18 03:00 09/21/18 03:23 Temperature Pulse Rate 73 87 Respiratory Rate 17 Blood Pressure 109/61 111/73 Pulse Oximetry 99 99 99 09/21/18 04:00 09/21/18 06:00 09/21/18 08:18 Temperature Pulse Rate 89 86 Respiratory Rate 17 Blood Pressure 109/71 Pulse Oximetry 98 99 Intake & Output 09/20/18 09/21/18 09/21/18 19:59 06:59 18:59 Intake Total Output Total Balance Weight Intake: IV Cerebyx Inj 130 MGPE In NS Inj 50 ML @ 216 mls/hr IV.SIG Q12HR [facility] Rx#:[id number] Vimpat Inj 100 MG In NS Inj 100 ML @ 110 mls/hr IV.SIG Q12HR [facility] Rx#:[id number] Tube Feeding Water Bolus Amount Output: Urine Stool Gastric Drainage Orogastric Tube Other: Date of Last Bowel Movement - Routine Neurological Exam Intubated, off sedation. No eye opening to noxious stim. No motor response x4 to noxious stim. Pupils reactive. Overbreathing the ventilator. Has a cough. - Urinary Catheter Management Indwelling Urethral Catheter Cath placed during this visit: yes, but has since been removed by the nurse Reason for continuing: Decision to DC catheter Insertion date: 09/06/18 Insertion time: 23:00 Removal date: 09/08/18 Removal time: 18:21 Straight Cath placed during this visit: yes, but has since been removed by the nurse Reason for continuing: Decision to DC catheter Insertion date: 09/09/18 Insertion time: 02:20 Removal date: 09/10/18 Removal time: 12:00 Indwelling Temp Sensing Catheter Cath placed during this visit: yes Reason for continuing: Acute urinary retention Insertion date: 09/12/18 Insertion time: 15:30 Assessment and Plan - Plan 77yoM with intractable seizures s/p craniotomy 09/12 (Jonel) for resection of hemorrhagic seizure focus. Head MRI 09/16/18 00:00 CONCLUSION: 1. Postsurgical changes left frontal lobe with minimal basilar edema and minimal residual hemorrhage. 2. No midline shift or mass effect. 3. Cerebral atrophy. 4. No acute infarction. 5. Old left cerebellar infarct. Exam remains stably poor, no plan for further interventions from a surgical standpoint Will need goals of care discussion with family/next of kin; lack of exam recovery is a poor prognostic indicator neuro following cont Anti seizure medication cont critical care dc anisa 09/26/18
--- NOTE | 2018-09-21 10:06 | P.PNCC ---
Subjective Subjective Remarks/Hospital Course: 69-year-old male with a history of recent ICH, and seizure disorder presents from home after he was seizing. Called paramedics arrived to find him seizing in the setting they gave him 2 of Versed to break his seizure after they establish IV access patient then in route has another seizure and they gave him 2 more Versed. The patient was a postictal voiding episode and became in respiratory distress needed to be intubated by the paramedics. They intubated him and arrived to emergency department sedated intubated and possibly seizing with contraction of the right hand. He was started on a propofol drip to keep him sedated as well as seizure-free and he has been admitted to the ICU. 09/07: No more seizure activity. Weaned to propofol 5 mics per kilogram per minute. AED restarted. CAT scan shows diminished size of left frontal lobe hematoma compared to prior study. 09/08: No more obvious seizure activity. Patient withdraws limbs aside from left foot. He grimaces to noxious stimulation. Breathes spontaneously over the ventilator. We need to confirm that he is indeed stopped seizing. Cerebyx added to Keppra. 09/09: Focus of left frontal intermittent seizure activity persists on 09/08. Still on Versed drip infusion and mechanical ventilation. Neurology service continues to adjust AED regimen. MRI yesterday without other significant injury aside from the known left frontal hematoma. 09/10: Focal area of intermittent seizure frontal lobe persisted yesterday on EEG. AED doses being adjusted. Urine output marginal, will reinstitute loop diuretic along with metolazone. Underlying cardiac function impaired at baseline with severe mitral and tricuspid regurgitation along with pulmonary hypertension as expected. Most recent echo is about a month ago. 09/11: Continued left fronto temporal seizure activity despite 3 AEDs. Juxtaposition of this 2 cm maturing left frontal lobe hematoma to the seizure activity is probably not coincidental. I have discussed with the family the concept of excising the mature hematoma in an attempt to attenuate the seizure activity. 09/12: Patient required versed yesterday for elevated airway pressures possibly related to seizure activity. No problems after Versed bolus and restarted. Plan is for resection of the seizure substrate in the left frontal lobe today. 09/13: Status post resection of left frontal lobe hemorrhagic mass yesterday. Return from OR on mechanical ventilation. Stable hemodynamics. Patient remains neurologically unstable with refractory seizures for which he underwent mass resection. 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 All sedation was stopped late Saturday and we are waiting for the gentleman to wake up. By cardiac echo obtained during his last admission he has both severe mitral and tricuspid regurgitation. He tends to retain fluid and is been chronically on Bumex 2 mg and metolazone 5 mg daily. Renal function tests indicate a prerenal type azotemia. It is unlikely that this represents too little intravascular volume because his weight is up and he has peripheral edema in his lower extremities. I have added albumin in an attempt to mobilize some fluid. Fortunately gas exchange has been good. 09/15: off sedation x 48h. still not following commands. very poor neuro exam. GCS 3. ? weak flicker of movement in the right upper extremity (unclear if posturing or withdraw) and slight grimace to painful stimuli. otherwise, no movement in any extremity. +cough. + corneals. pupils 2mm equal and reactive. EEG ordered. 09/16: remains off sedation for days. now worsening exam: no grimace at all to painful stimuli. GCS remains 3. EEG persistently poor, but no overt seizures. MRI ordered today without new ischemic area. anti-epileptic levels therapeutic. discussed with Dr. Bonilla: if no improvements by the end of the week, prognosis is grim at best. discussed this together at length with the family. states she does knows that he would not want trach/peg and would not want to live if he was not awake and off machines. 09/17: Elevated BUN likely contributing to his somnolence. Considering the extended period of time he was on moderate to high dose Versed it may well take many more days for that to clear as well. I am forced to hydrate him knowing that it will increase his peripheral edema. But were going to have to normalize his urea nitrogen before we can assume he is encephalopathic for some other reason. 09/18: Creatinine decline but BUN has increased again. Patient is being aggressively hydrated with hypotonic solution but were having a hard time keeping up with the was moderate diuresis from the hyperglycemia. Once again will increase the long-acting insulin coverage. Certainly elevated sodium and contributing to his somnolence. Decadron is making glucose control even harder. Underlying all this is heart failure and his ongoing retention of fluid , complicating all of these issues. 09/19: Minimal improvement and osmolality and BUN. Persistent white blood cell count elevation. No change in neurologic status. Family wishes to continue pursuing aggressively all avenues. Presently waiting for benzodiazepines to wear off. 09/20: Aside from some mouth movements there is no real increase in continuous activity nor withdrawal. Electrolytes require correction today after diuretics changed for the treatment of chronic heart failure. 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 No movement nor withdrawal today. 6 days since all all sedation and analgesia stopped. BUN 141 likely contributing to somnolence. Patient is well hydrated with greater than 1500 mL's of urine per day yet prerenal pattern persists. IV has been running at 150 mL's per hour for many days now and azotemia worsens. Possible component of osmotic diuresis secondary to hyperglycemia? In my discussions with family we have all decided if patient does not wake up more after 7 days without sedation, and normalized BUN, then recovery from this episode of status seizures is a lot less likely. Objective Vital Signs / I&O: Vital Signs 09/20/18 11:00 09/20/18 12:00 09/20/18 13:00 Temperature 97.8 F Pulse Rate 96 H 96 H 97 H Respiratory Rate 18 Blood Pressure 108/67 105/70 112/73 Pulse Oximetry 99 99 99 09/20/18 13:08 09/20/18 14:00 09/20/18 15:00 Temperature Pulse Rate 98 H 98 H Respiratory Rate 24 Blood Pressure 113/72 115/78 Pulse Oximetry 99 99 99 09/20/18 16:00 09/20/18 17:00 09/20/18 18:00 Temperature 97.8 F Pulse Rate 85 84 75 Respiratory Rate 16 Blood Pressure 116/77 113/68 116/66 Pulse Oximetry 91 L 93 L 100 09/20/18 18:06 09/20/18 19:00 09/20/18 20:00 Temperature 98.7 F Pulse Rate 95 H 93 H Respiratory Rate 17 Blood Pressure 112/72 113/78 Pulse Oximetry 99 100 100 09/20/18 20:05 09/20/18 21:00 09/20/18 22:00 Temperature Pulse Rate 95 H 79 Respiratory Rate 17 Blood Pressure 115/69 111/62 Pulse Oximetry 99 98 99 09/20/18 23:00 09/21/18 00:00 09/21/18 00:28 Temperature 98.7 F Pulse Rate 80 78 Respiratory Rate 18 19 Blood Pressure 109/66 106/62 Pulse Oximetry 99 96 100 09/21/18 00:59 09/21/18 01:00 EST 09/21/18 01:06 EST Temperature Pulse Rate 87 75 Respiratory Rate Blood Pressure 114/76 Pulse Oximetry 99 98 09/21/18 02:00 09/21/18 03:00 09/21/18 03:23 Temperature Pulse Rate 73 87 Respiratory Rate 17 Blood Pressure 109/61 111/73 Pulse Oximetry 99 99 99 09/21/18 04:00 09/21/18 06:00 09/21/18 08:00 Temperature 97.6 F Pulse Rate 89 86 86 Respiratory Rate 17 Blood Pressure 109/71 110/73 Pulse Oximetry 98 99 09/21/18 08:18 Temperature Pulse Rate Respiratory Rate 17 Blood Pressure Pulse Oximetry 99 Intake & Output 09/20/18 09/21/18 09/21/18 19:59 06:59 18:59 Intake Total Output Total Balance Weight Intake: IV Cerebyx Inj 130 MGPE In NS Inj 50 ML @ 216 mls/hr IV.SIG Q12HR [facility] Rx#:[id number] Vimpat Inj 100 MG In NS Inj 100 ML @ 110 mls/hr IV.SIG Q12HR [facility] Rx#:[id number] Tube Feeding Water Bolus Amount Output: Urine Stool Gastric Drainage Orogastric Tube Other: Date of Last Bowel Movement 09/21/18 Result Diagrams: 09/21/18 03:21 09/21/18 03:21 Objective Remarks: gen: elderly male, in bed on ventilator heent: dressings c/d/i. neck: no jvd. trachea midline. Orally intubated chest: PRVC. equal chest rise. fio2 40%, nielson clear. cv: normal rate, regular rhythm. sinus, no JVD. abd: soft, nontender, nondistended. no guarding. Bowel sounds active extr: Some thigh edema. distal pulses 2+. neuro: GCS 3. RASS -4. no movement at all today to deep stimulation. Some occasional mouth and jaw movement. Breathes comfortably on spontaneous breathing trials with good respiratory drive. Assessment and Plan - Assessment and Plan Plan: Assessment: 77yM presented in status epilepticus with frontal mass now s/p craniotomy and mass resection with persistently very poor neurologic exam. MRI today. remains critically ill today, off pathway, with persistently dense encephalopathy. the longer we go without neurologic improvement, the more grim the prognosis. Recommend waiting until the end of the week, but then will likely need to get palliative care involved if no improvements. Will continue hydration with quarter normal saline and see how he responds but worsening azotemia is concerning. 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 -Neurology consulted. -Neurosurgery consulted. -Cerebyx added 09/07 -Phenobarbital added -Left frontal focus of intermittent seizures persists 09/08, 09/10, 09/11. improving eeg 09/15 -Plan resection of seizure substrate and left frontal lobe -> 09/12 -Saturday will be 7 days following removal of all sedation aside from a low dose of phenobarbital for seizure control. - ICH Old from beginning of August -Decreasing in size Resp: Acute hypoxic and hypercarbic Respiratory failure- persistent -Attempt to wean and extubate when seizure-free -Vent bundle -DuoNeb's as needed -Daily spontaneous breathing trials started CV: Atrial fibrillation Severe mitral and tricuspid regurgitation Pulmonary hypertension Dyslipidemia Hypertension -Metoprolol -Hold anticoagulation due to recent ICH -increase Bumex 1 mg IV BID, continue metolazone -albumin twice daily to mobilize peripheral edema -Azotemia worrisome. -Pravastatin -Metolazone -Metoprolol, and for A. fib rate control Renal: d/c bishop FEN/GI: Acute protein calorie malnutrition- severe tube feeds ICU electrolyte protocol daily bmp, mg, phos Glucerna 1.5 enteral feeds continuous Heme/ID: C. difficile infection -Patient received vancomycin and Zosyn during hospital admission August 19 and was discharged on Levaquin. -Diarrheal stool noticed day 3, antigen and toxin positive -Oral vancomycin 250 4 times daily started 09/09. Discontinue after 14 days. Endocrine: Diabetes -Insulin sliding scale -Made more difficult by Decadron, increased Levemir to 22 units subcu twice daily, continue increase sliding scale correction -Add thyroid replacement. DVT GI prophylaxis -Teds SCDs -Subcu heparin -Pepcid Overall impression: This gentleman is critically ill having sustained seizures which required intubation and mechanical ventilation for control. We are unable to wean him from the ventilator at this time. Intermittent nonconvulsive seizures were documented multiple times by EEG. Remains critically ill and neurologically unstable. Diuretics have been discontinued almost a week ago but still markedly elevated BUN; will need to be corrected before we can conclude that his mental status is severely impaired. Lengthy talk with family again today 09/20, particularly son who is sort of spokesman, , and nephew. I spoke with son again this morning 09/21 and encouraged him to make a decision soon about whether they would like us to proceed with continued aggressive care including tracheostomy and PEG. Critical care 35 minutes aside from procedures.
[2018-09-21] MEDS: Magnesium Oxide 400 MG Tablet PO SCH ×2 (10:12→22:03)
[2018-09-21] MEDS: Sodium Chloride 23.4% Inj 38.5 MEQ in Water for Inj, Sterile 1,000 ML IV.CONT SCH ×2 (10:36→18:26)
[2018-09-21 13:47] LABS: Bacteria,Urine Occasional /hpf; Bilirubin,Urine Negative (Negative); Clarity,Urine Hazy (Clear); Color,Urine Yellow (Yellw/Straw); Glucose,Urine (UA) Negative (Negative); Leukocyte Esterase,Urine Negative (Negative); Mucus,Urine Few /lpf (Occasional); Nitrite,Urine Negative (Negative); Specific Gravity,Urine 1.015 (1.002-1.035); Squamous Epithelial Cell,Urine <1 /hpf (0-5)
--- NOTE | 2018-09-21 14:37 | P.CONNP ---
History of Present Illness Service: Nephrology Consult date: 09/21/18 Requesting Physician: Zion Moreno Reason for Consult: Hyperkalemia and renal insufficiency Primary Care Provider: Gary Rivera Chief Complaint: Seizure History of Present Illness: Patient is a 77-year-old white male with history of a fall and intracranial bleed has craniotomy who was at home and had seizures, he was given Versed he had recurrent seizures he is intubated under sedation and found to have renal insufficiency creatinine around 1.3-1.4, patient was artificially fed through tube feeding and has been taking Glucerna he was noted to have hyperkalemia potassium is 5.8 Patient has underlying history of diabetes. Review of Systems unobtainable due to mental status PMFSH - History History Provided By: Family Member, Medical Record - Medical History Medical History: Medical History (Last Reviewed 09/21/18 @ 14:30 by Hayder Lewis MD) MDRO (multiple drug resistant organisms) resistance Onset Date: ~09/08/18 Atrial fibrillation Diabetes Gout - Surgical History Surgical History: Surgical History (Last Reviewed 09/21/18 @ 14:30 by Hayder Lewis MD) AICD (automatic cardioverter/defibrillator) present - Family History Family History: Family History (Last Updated 09/21/18 @ 14:30 by Hayder Lewis MD) Other Family history non-contributory - Social History I have reviewed the patient's Social History: Yes - Tobacco History Second Hand Smoke Exposure: No Smoking Status: Never smoker - Alcohol History How Often Do You Have a Drink Containing Alcohol: Never - Substance Use History Substance History: No History of Abuse - Travel History Recent Travel in the [place] Within the Last 8 Weeks: No Recent Travel Out of the Country Within the Last 8 Weeks: No - Immunization History Tetanus Immunization: Unsure Hx Influenza Vaccine This Season: Unable to Assess Medications and Allergies Active Medications: Active Medications Acetaminophen (Tylenol) 650 mg PO Q6H PRN PRN Reason: FOR FEVER >101F Last Admin: 09/11/18 19:57 Dose: 650 mg Al Hydroxide/Mg Hydroxide (Milk Of Magnesia Liq) 30 ml PO Q12H PRN PRN Reason: Mild Constipation Albuterol (Duoneb Neb (Prn)) 1 ampul NEB Q2HR NEB PRN PRN Reason: WHEEZING Last Admin: 09/17/18 19:45 Dose: 1 ampul Allopurinol (Zyloprim) 100 mg PO DAILY [facility] Last Admin: 09/21/18 09:16 Dose: 100 mg Bisacodyl (Dulcolax Supp) 10 mg RECTAL DAILY PRN PRN Reason: SEVERE CONSITIPATION Bumetanide (Bumex Inj) 1 mg IV.PUSH BID@0900,1800 [facility] Last Admin: 09/16/18 17:07 Dose: 1 mg Chlorhexidine Gluconate (Peridex 0.12% Oral Kit) 15 ml OROPHARYNG BID@0800, 2000 [facility] Last Admin: 09/21/18 09:16 Dose: 15 ml Dexamethasone Sodium Phosphate (Decadron Inj) 4 mg IV.PUSH Q6H [facility] Last Admin: 09/21/18 14:14 Dose: 4 mg Dextrose (D50w Vial) 50 ml IV.PUSH UNSCH PRN PRN Reason: PER HYPOGLYCEMIA PROTOCOL Diltiazem HCl (Cardizem Cd 24hr) 120 mg PO DAILY [facility] Last Admin: 09/07/18 12:00 Dose: Not Given Diltiazem HCl (Cardizem) 30 mg PO Q6H [facility] Last Admin: 09/21/18 14:14 Dose: 30 mg Famotidine (Pepcid Pf Inj) 20 mg IV.PUSH Q12HR [facility] Last Admin: 09/21/18 09:15 Dose: 20 mg Glucagon (Glucagon Inj) 1 mg OTHER PRN PRN PRN Reason: for Hypoglycemia Protocol Heparin Sodium (Porcine) (Heparin Inj) 5,000 units SQ Q8HR [facility] Last Admin: 09/21/18 14:14 Dose: 5,000 units Lacosamide 100 mg/ Sodium (Chloride) 110 mls @ 110 mls/hr IV.SIG Q12HR [facility] Last Infusion: 09/21/18 09:51 Dose: Infused Fosphenytoin Sodium 130 mgpe/ (Sodium Chloride) 52.6 mls @ 216 mls/hr IV.SIG Q12HR [facility] Last Infusion: 09/21/18 09:29 Dose: Infused Sodium Chloride 38.5 meq/ (Sterile Water) 1,009.625 mls @ 150 mls/hr IV.CONT .Q6H44M [facility] Last Admin: 09/21/18 10:36 Dose: 150 mls/hr Insulin Aspart (Novolog Insulin Correctional Sugar Inj) 0 unit SQ Q6HR [facility]; Protocol Last Admin: 09/21/18 01:42 EDT Dose: Not Given Insulin Detemir (Levemir Inj) 22 unit SQ BID [facility] Lactulose (Lactulose Liq) 30 ml PO DAILY PRN PRN Reason: SEVERE CONSITIPATION Levothyroxine Sodium (Synthroid) 75 mcg PO DAILY@0600 [facility] Last Admin: 09/21/18 05:13 Dose: 75 mcg Lorazepam (Ativan Inj) 1 mg IV.PUSH Q1H PRN PRN Reason: Agitation/sedation or Seizure Last Admin: 09/07/18 04:37 Dose: 1 mg Magnesium Oxide (Mag-Ox) 400 mg PO BID [facility] Last Admin: 09/21/18 10:12 Dose: Not Given Metolazone (Zaroxolyn) 5 mg PO DAILY [facility] Last Admin: 09/16/18 09:18 Dose: 5 mg Metoprolol Tartrate (Lopressor) 50 mg PO BID [facility] Last Admin: 09/21/18 09:13 Dose: 50 mg Miscellaneous Medication () 1 each OROPHARYNG 0000,0400,1200,1600 [facility] Last Admin: 09/21/18 01:40 EDT Dose: 1 each Morphine Sulfate (Morphine Inj) 2 mg IV.PUSH Q2H PRN PRN Reason: PAIN SCALE 6 TO 10 Ondansetron HCl (Zofran Inj) 4 mg IV.PUSH Q6H PRN PRN Reason: NAUSEA OR VOMITING Phenobarbital Sodium (Luminal Inj) 60 mg IV.PUSH Q12HR [facility] Last Admin: 09/21/18 09:15 Dose: 60 mg Pravastatin Sodium (Pravachol) 40 mg PO HS [facility] Last Admin: 09/20/18 21:08 Dose: 40 mg Senna/Docusate Sodium (Janeen-Colace) 1 tab PO BID [facility] Last Admin: 09/21/18 09:16 Dose: Not Given Sennosides (Senokot) 17.2 mg PO Q12H PRN PRN Reason: Moderate Constipation Sodium Chloride (Ns Flush) 2 ml IV.FLUSH BID [facility] Last Admin: 09/21/18 09:16 Dose: Not Given Sodium Chloride (Ns Flush) 2 ml IV.FLUSH PRN PRN PRN Reason: FLUSH AFTER USING IV ACCESS Last Admin: 09/20/18 21:08 Dose: 2 ml Sterile Water (Free Water) 200 ml G-TUBE Q6HR [facility] Last Admin: 09/21/18 01:41 EDT Dose: Not Given Vancomycin HCl (Vancomycin Po) 250 mg PO QID [facility] Last Admin: 09/21/18 14:15 Dose: 250 mg Whey (Beneprotein Powder) 1 packet G-TUBE TID [facility] Last Admin: 09/21/18 14:15 Dose: 1 packet Allergies Allergy/AdvReac Type Severity Reaction Status Date / Time digitoxin Allergy Severe Hallucinati Verified 08/19/18 15:46 ons Home Medications Medication Instructions Recorded Confirmed Type diltiazem HCl 1 cap PO DAILY 08/19/18 08/19/18 History magnesium oxide 400 mg PO BID 08/19/18 08/19/18 History metolazone 5 mg PO DAILY 08/19/18 08/19/18 History metoprolol tartrate 50 mg PO BID 08/19/18 08/19/18 History potassium chloride 1 tab PO BID 08/19/18 08/19/18 History simvastatin 20 mg PO QPM 08/19/18 08/19/18 History Exam Vital signs: Vital Signs 09/20/18 16:00 09/20/18 17:00 09/20/18 18:00 Temperature 97.8 F Pulse Rate 85 84 75 Respiratory Rate 16 Blood Pressure 116/77 113/68 116/66 Pulse Oximetry 91 L 93 L 100 09/20/18 18:06 09/20/18 19:00 09/20/18 20:00 Temperature 98.7 F Pulse Rate 95 H 93 H Respiratory Rate 17 Blood Pressure 112/72 113/78 Pulse Oximetry 99 100 100 09/20/18 20:05 09/20/18 21:00 09/20/18 22:00 Temperature Pulse Rate 95 H 79 Respiratory Rate 17 Blood Pressure 115/69 111/62 Pulse Oximetry 99 98 99 09/20/18 23:00 09/21/18 00:00 09/21/18 00:28 Temperature 98.7 F Pulse Rate 80 78 Respiratory Rate 18 19 Blood Pressure 109/66 106/62 Pulse Oximetry 99 96 100 09/21/18 00:59 09/21/18 01:00 EST 09/21/18 01:06 EST Temperature Pulse Rate 87 75 Respiratory Rate Blood Pressure 114/76 Pulse Oximetry 99 98 09/21/18 02:00 09/21/18 03:00 09/21/18 03:23 Temperature Pulse Rate 73 87 Respiratory Rate 17 Blood Pressure 109/61 111/73 Pulse Oximetry 99 99 99 09/21/18 04:00 09/21/18 06:00 09/21/18 08:00 Temperature 97.6 F Pulse Rate 89 86 86 Respiratory Rate 17 Blood Pressure 109/71 110/73 Pulse Oximetry 98 99 09/21/18 08:18 09/21/18 10:00 09/21/18 11:41 Temperature Pulse Rate 95 H Respiratory Rate 17 17 Blood Pressure Pulse Oximetry 99 100 09/21/18 11:44 09/21/18 12:00 Temperature 96.7 F L Pulse Rate 92 H Respiratory Rate 17 16 Blood Pressure 104/72 Pulse Oximetry 100 99 Intake & Output 09/20/18 09/21/18 09/21/18 19:59 06:59 18:59 Intake Total 162.6 / 162.6 Output Total Balance 162.6 / 162.6 Weight Intake: IV 162.6 / 162.6 Sodium Chloride 23.4% Inj 38.5 MEQ In Sterile Water for Inj 1, 000 ML @ 150 mls/hr IV.CONT . Q6H44M [facility] Rx#:[id number] Cerebyx Inj 130 MGPE In NS Inj 52.6 / 52.6 50 ML @ 216 mls/hr IV.SIG Q12HR [facility] Rx#:[id number] Vimpat Inj 100 MG In NS Inj 100 110 / 110 ML @ 110 mls/hr IV.SIG Q12HR [facility] Rx#:[id number] Tube Feeding Water Bolus Amount Output: Urine Stool Gastric Drainage Orogastric Tube Other: Date of Last Bowel Movement 09/21/18 Narrative: GENERAL: Well-nourished, well-developed sedated and intubated patient. SKIN: Warm and dry. HEAD: Left craniotomy incision is healing. EYES: No scleral icterus. No injection or drainage. NECK: Supple, trachea midline. No JVD or lymphadenopathy. CARDIOVASCULAR: Irregularly irregular RESPIRATORY: Breath sounds equal bilaterally. No accessory muscle use. GASTROINTESTINAL: Abdomen soft, non-tender, distended. EXTREMITIES: 2-3+ edema NEUROLOGICAL: Patient is under sedation Results - Lab Results 09/21/18 03:21 09/21/18 03:21 Most recent lab results ABG pH 7.39 (7.380-7.420) 09/13/18 11:51 ABG pCO2 37 mmHg (38-42) L 09/13/18 11:51 ABG pO2 181 mmHg (61-120) H 09/13/18 11:51 ABG HCO3 22 mmol/L (22-26) 09/13/18 11:51 Calcium 7.9 mg/dL (8.5-10.1) L 09/21/18 03:21 Phosphorus 4.0 mg/dL (2.5-4.9) 09/21/18 03:21 Magnesium 2.7 mg/dL (1.5-2.5) H 09/21/18 03:21 Assessment and Plan - Assessment (1) Chronic kidney disease (CKD) stage G3a/A1, moderately decreased glomerular filtration rate (GFR) between 45-59 mL/min/1.73 square meter and albuminuria creatinine ratio less than 30 mg/g Code(s): N18.3 - Chronic kidney disease, stage 3 (moderate) Status: Acute (2) Hyperkalemia Code(s): E87.5 - Hyperkalemia Status: Acute (3) ICH (intracerebral hemorrhage) Code(s): I61.9 - Nontraumatic intracerebral hemorrhage, unspecified Status: Acute (4) Localization-related (focal) (partial) symptomatic epilepsy and epileptic syndromes with complex partial seizures, intractable, with status epilepticus Code(s): G40.211 - Localization-related (focal) (partial) symptomatic epilepsy and epileptic syndromes with complex partial seizures, intractable, with status epilepticus Status: Acute (5) Atrial fibrillation Code(s): I48.91 - Unspecified atrial fibrillation Status: Acute (6) Acute encephalopathy Code(s): G93.40 - Encephalopathy, unspecified Status: Acute - Plan Patient is getting potassium with tube feeding, Glucerna, change it to Nepro as patient has reduced GFR and accumulating potassium May use diuretic if needed Sodium has improved Follow urine culture, microalbumin Avoid nephrotoxic agent Follow BMP Patient remains critically ill intubated on ventilator he has edema Continue supportive care (3) ICH (intracerebral hemorrhage) Qualifiers: Intracerebral hemorrhage etiology: traumatic Encounter type: initial encounter Laterality: left Loss of consciousness presence/duration: with LOC of unspecified duration Qualified Code(s): S06.359A - Traumatic hemorrhage of left cerebrum with loss of consciousness of unspecified duration, initial encounter
--- NOTE | 2018-09-21 16:42 | P.DIET ---
Nutritional Evaluation Type of nutrition evaluation: follow-up Nutrition consult regarding: Tube Feeding (Formula changed to Nepro) Objective - Diagnosis Respiratory Failure, Seizure - Objective Body Mass Index: 33.2 % IBW: 113 (IBW = 166#) Body Weight Used for Calculations: IBW (75.5 kg) Energy Needs - Lower Range (kCal/kg): 25 Energy Needs - Upper Range (kCal/kg): 30 Lower Limit kCal/kg (kCals): 1,886 Upper Limit kCal/kg (kCals): 2,265 Lower Limit Protein Factor (Grams per Kg): 1.0 Upper Limit Protein Factor (Grams per Kg): 1.5 Lower Protein Needs (Protein): 76 Upper Protein Needs (Protein): 113 Dietitian Reviewed in Medical Record: Curent medications, Intake & Output, Labs , Medical history, Tube feeding Diet Order: NPO Objective Comments: PMH: DM, Gout, Afib, AICD placed Labs include: K 5.8, BUN/creat 141/1.31, Est GFR 53, glu 267 Assessment Assessment: Pt remains at nutritional risk r/t dx and need for a TF for nutrition support. TFing formula changed to Nepro today 2' to elevated K. Pt has Stage 3 CKD per [employer]. Currently receiving Nepro @ 40 mls/hr per MD. Beneprotein is also ordered as 1 pack tid which provides 75 kcals and 18 gms of additional protein. Recommend Nepro @ 50 mls/hr x 22 hrs (d/t synthroid) to provide 1980 kcals and 89 gms protein. Labs, wts and clinical course reviewed. Recommendations: Nepro @ 50 mls/hr x 22 hours. TF must be held one hour before and after synthroid is given. Dietitian to Monitor: Lab values, Intake & Output, Tube feeding tolerance, Weight change, Medical course
[2018-09-21] MEDS: Insulin Detemir Inj 1,000 UNIT/10 ML Vial SQ SCH (22:06)
[2018-09-22] MEDS: Insulin NovoLOG Aspart Correctional Sugar Inj SQ SCH ×4 (00:36→18:10)
[2018-09-22] MEDS: Oral Hygiene Kit OROPHARYNG SCH ×4 (00:37→16:00)
[2018-09-22] MEDS: dilTIAZem 30 MG Tablet PO SCH ×5 (02:13→20:24)
[2018-09-22 05:57] LABS: Hematocrit 23.9 % (39.0-51.0); Hemoglobin 7.8 gm/dL (13.0-17.0); Mean Corpuscular HGB Conc 32.8 % (32.0-36.0); Mean Corpuscular Hemoglobin 35.3 pg (27.0-34.0); Mean Corpuscular Volume 107.4 fL (80.0-100.0); Mean Platelet Volume 9.9 fL (7.0-11.0); Platelet Count 199 th/mm3 (150-450); Red Blood Count 2.22 mil/mm3 (4.50-5.90); White Blood Count 27.9 th/mm3 (4.0-11.0)
[2018-09-22 06:21] LABS: Calcium 7.7 mg/dL (8.5-10.1); Carbon Dioxide 21.2 meq/L (21.0-32.0); Magnesium 2.7 mg/dL (1.5-2.5); Phosphorus 4.8 mg/dL (2.5-4.9); Potassium 5.8 meq/L (3.5-5.1)
[2018-09-22 06:22] LABS: Phenytoin (Dilantin) 16.4 mcg/mL (10.0-20.0)
[2018-09-22] MEDS: Heparin - SQ 10,000 UNITS/ML Vial SQ SCH ×3 (06:32→22:40)
[2018-09-22] MEDS: Levothyroxine 75 MCG Tablet PO SCH (06:33)
--- NOTE | 2018-09-22 06:37 | P.PNNEU ---
Subjective Subjective Comments: no acute events Active Medications: Active Medications Acetaminophen (Tylenol) 650 mg PO Q6H PRN PRN Reason: FOR FEVER >101F Last Admin: 09/11/18 19:57 Dose: 650 mg Al Hydroxide/Mg Hydroxide (Milk Of Magnbreanne Liq) 30 ml PO Q12H PRN PRN Reason: Mild Constipation Albuterol (Duoneb Neb (Prn)) 1 ampul NEB Q2HR NEB PRN PRN Reason: WHEEZING Last Admin: 09/17/18 19:45 Dose: 1 ampul Allopurinol (Zyloprim) 100 mg PO DAILY [facility] Last Admin: 09/21/18 09:16 Dose: 100 mg Bisacodyl (Dulcolax Supp) 10 mg RECTAL DAILY PRN PRN Reason: SEVERE CONSITIPATION Bumetanide (Bumex Inj) 1 mg IV.PUSH BID@0900,1800 [facility] Last Admin: 09/16/18 17:07 Dose: 1 mg Chlorhexidine Gluconate (Peridex 0.12% Oral Kit) 15 ml OROPHARYNG BID@0800, 2000 [facility] Last Admin: 09/21/18 22:06 Dose: 15 ml Dexamethasone Sodium Phosphate (Decadron Inj) 4 mg IV.PUSH Q6H [facility] Last Admin: 09/22/18 02:41 Dose: 4 mg Dextrose (D50w Vial) 50 ml IV.PUSH UNSCH PRN PRN Reason: PER HYPOGLYCEMIA PROTOCOL Diltiazem HCl (Cardizem Cd 24hr) 120 mg PO DAILY [facility] Last Admin: 09/07/18 12:00 Dose: Not Given Diltiazem HCl (Cardizem) 30 mg PO Q6H [facility] Last Admin: 09/22/18 02:42 Dose: 30 mg Famotidine (Pepcid Pf Inj) 20 mg IV.PUSH Q12HR [facility] Last Admin: 09/21/18 22:01 Dose: 20 mg Glucagon (Glucagon Inj) 1 mg OTHER PRN PRN PRN Reason: for Hypoglycemia Protocol Heparin Sodium (Porcine) (Heparin Inj) 5,000 units SQ Q8HR [facility] Last Admin: 09/22/18 06:32 Dose: 5,000 units Lacosamide 100 mg/ Sodium (Chloride) 110 mls @ 110 mls/hr IV.SIG Q12HR [facility] Last Admin: 09/21/18 22:04 Dose: 110 mls/hr Fosphenytoin Sodium 130 mgpe/ (Sodium Chloride) 52.6 mls @ 216 mls/hr IV.SIG Q12HR [facility] Last Infusion: 09/21/18 22:58 Dose: Infused Sodium Chloride 38.5 meq/ (Sterile Water) 1,009.625 mls @ 150 mls/hr IV.CONT .Q6H44M [facility] Last Infusion: 09/22/18 01:14 Dose: 150 mls/hr Insulin Aspart (Novolog Insulin Correctional Sugar Inj) 0 unit SQ Q6HR [facility]; Protocol Last Admin: 09/22/18 00:37 Dose: 5 unit Insulin Detemir (Levemir Inj) 22 unit SQ BID [facility] Last Admin: 09/21/18 22:06 Dose: 22 unit Lactulose (Lactulose Liq) 30 ml PO DAILY PRN PRN Reason: SEVERE CONSITIPATION Levothyroxine Sodium (Synthroid) 75 mcg PO DAILY@0600 [facility] Last Admin: 09/22/18 06:33 Dose: 75 mcg Lorazepam (Ativan Inj) 1 mg IV.PUSH Q1H PRN PRN Reason: Agitation/sedation or Seizure Last Admin: 09/07/18 04:37 Dose: 1 mg Magnesium Oxide (Mag-Ox) 400 mg PO BID [facility] Last Admin: 09/21/18 22:03 Dose: 400 mg Metolazone (Zaroxolyn) 5 mg PO DAILY [facility] Last Admin: 09/16/18 09:18 Dose: 5 mg Metoprolol Tartrate (Lopressor) 50 mg PO BID [facility] Last Admin: 09/21/18 22:04 Dose: 50 mg Miscellaneous Medication () 1 each OROPHARYNG 0000,0400,1200,1600 [facility] Last Admin: 09/22/18 05:53 Dose: 1 each Morphine Sulfate (Morphine Inj) 2 mg IV.PUSH Q2H PRN PRN Reason: PAIN SCALE 6 TO 10 Ondansetron HCl (Zofran Inj) 4 mg IV.PUSH Q6H PRN PRN Reason: NAUSEA OR VOMITING Phenobarbital Sodium (Luminal Inj) 60 mg IV.PUSH Q12HR [facility] Last Admin: 09/21/18 23:17 Dose: 60 mg Pravastatin Sodium (Pravachol) 40 mg PO HS [facility] Last Admin: 09/21/18 22:03 Dose: 40 mg Senna/Docusate Sodium (Janeen-Colace) 1 tab PO BID [facility] Last Admin: 09/21/18 23:18 Dose: Not Given Sennosides (Senokot) 17.2 mg PO Q12H PRN PRN Reason: Moderate Constipation Sodium Chloride (Ns Flush) 2 ml IV.FLUSH BID [facility] Last Admin: 09/21/18 23:18 Dose: 2 ml Sodium Chloride (Ns Flush) 2 ml IV.FLUSH PRN PRN PRN Reason: FLUSH AFTER USING IV ACCESS Last Admin: 09/20/18 21:08 Dose: 2 ml Sterile Water (Free Water) 200 ml G-TUBE Q6HR [facility] Last Admin: 09/22/18 06:32 Dose: 200 ml Vancomycin HCl (Vancomycin Po) 250 mg PO QID [facility] Last Admin: 09/21/18 22:02 Dose: 250 mg Whey (Beneprotein Powder) 1 packet G-TUBE TID [facility] Last Admin: 09/21/18 14:15 Dose: 1 packet Allergies/Adverse Reactions: Allergies Allergy/AdvReac Type Severity Reaction Status Date / Time digitoxin Allergy Severe Hallucinati Verified 08/19/18 15:46 ons Review of Systems unobtainable due to endotracheal tube, unobtainable due to mental status Physical Exam Vital signs: Vital Signs 09/21/18 07:00 09/21/18 08:00 09/21/18 08:18 Temperature 97.7 F 97.6 F Pulse Rate 88 89 Respiratory Rate 17 17 17 Blood Pressure 113/70 110/73 Pulse Oximetry 99 99 99 09/21/18 09:00 09/21/18 10:00 09/21/18 11:00 Temperature Pulse Rate 90 88 91 H Respiratory Rate Blood Pressure 111/70 104/61 102/65 Pulse Oximetry 99 99 99 09/21/18 11:41 09/21/18 11:44 09/21/18 12:00 Temperature 96.7 F L Pulse Rate 93 H Respiratory Rate 17 17 16 Blood Pressure 104/72 Pulse Oximetry 100 100 99 09/21/18 13:00 09/21/18 14:00 09/21/18 15:00 Temperature Pulse Rate 90 82 85 Respiratory Rate Blood Pressure 103/65 106/68 106/64 Pulse Oximetry 98 98 98 09/21/18 15:33 09/21/18 16:00 09/21/18 17:00 Temperature 97.8 F Pulse Rate 89 80 Respiratory Rate 17 19 Blood Pressure 115/63 101/59 L Pulse Oximetry 100 99 100 09/21/18 18:00 09/21/18 19:00 09/21/18 20:00 Temperature 97.7 F Pulse Rate 93 H 92 H 98 H Respiratory Rate 15 Blood Pressure 107/72 108/68 100/67 Pulse Oximetry 99 98 98 09/21/18 20:43 09/21/18 21:00 09/21/18 22:00 Temperature Pulse Rate 97 H 91 H Respiratory Rate 17 Blood Pressure 102/63 100/57 L Pulse Oximetry 98 98 99 09/21/18 23:00 09/21/18 23:46 09/22/18 00:00 Temperature Pulse Rate 89 89 Respiratory Rate 15 Blood Pressure 99/62 L 92/55 L Pulse Oximetry 99 99 99 09/22/18 01:00 09/22/18 02:00 09/22/18 02:15 Temperature Pulse Rate 90 88 85 Respiratory Rate Blood Pressure 101/63 103/64 Pulse Oximetry 99 100 100 09/22/18 02:30 09/22/18 02:48 09/22/18 04:00 Temperature 97.4 F L Pulse Rate 84 67 88 Respiratory Rate 26 H Blood Pressure 102/52 L 100/65 Pulse Oximetry 99 99 99 09/22/18 04:51 Temperature Pulse Rate Respiratory Rate 15 Blood Pressure Pulse Oximetry 100 Intake & Output 09/21/18 09/21/18 09/22/18 06:59 18:59 06:59 Intake Total 2362.6 / 2362.6 2.6 / 2051.6 Output Total 1380 / 1380 Balance 982.6 / 982.6 2.6 / 2051.6 Weight Intake: IV 1162.6 / 1162.6 2051. / 2051.6 Sodium Chloride 23.4% Inj 38.5 1000 / 1000 2000 / 2000 MEQ In Sterile Water for Inj 1, 000 ML @ 150 mls/hr IV.CONT . Q6H44M [facility] Rx#:[id number] Cerebyx Inj 130 MGPE In NS Inj 52.6 / 52.6 52.6 / 52.6 50 ML @ 216 mls/hr IV.SIG Q12HR [facility] Rx#:[id number] Vimpat Inj 100 MG In NS Inj 100 110 / 110 ML @ 110 mls/hr IV.SIG Q12HR [facility] Rx#:[id number] Tube Feeding 520 / 520 Water Bolus Amount 680 / 680 Output: Urine 1200 / 1200 Stool 0 / 0 Gastric Drainage 180 / 180 Orogastric Tube 180 / 180 Other: Date of Last Bowel Movement 09/21/18 09/21/18 Narrative: GENERAL: in NAD, SKIN: Warm and dry. HEAD: Atraumatic. Normocephalic. EYES: Sluggishly reactive ENT: Intubated NECK: Intubated CARDIOVASCULAR: Regular rate and rhythm. RESPIRATORY: Intubated GASTROINTESTINAL: Abdomen soft, non-tender, nondistended. MUSCULOSKELETAL: No obvious deformities. Bilateral lower extremity edema NEUROLOGICAL: Intubated, coma state nonverbal not following, grimace to deep tactile, OU 3/2 mm sluggishly reactive no gaze deviation, has corneal reflex OU , no localization PSYCHIATRIC: Intubated, calm - Constitutional no acute distress - Routine HEENT Exam Head: Present: normocephalic - Urinary Catheter Management Indwelling Urethral Catheter Cath placed during this visit: yes, but has since been removed by the nurse Reason for continuing: Decision to DC catheter Insertion date: 09/06/18 Insertion time: 23:00 Removal date: 09/08/18 Removal time: 18:21 Straight Cath placed during this visit: yes, but has since been removed by the nurse Reason for continuing: Decision to DC catheter Insertion date: 09/09/18 Insertion time: 02:20 Removal date: 09/10/18 Removal time: 12:00 Indwelling Temp Sensing Catheter Cath placed during this visit: yes Reason for continuing: Acute urinary retention Insertion date: 09/12/18 Insertion time: 15:30 Objective Laboratory Results - last 24 hr 09/21/18 09/21/18 09/21/18 11:34 12:10 17:27 WBC RBC Hgb Hct MCV MCH MCHC RDW Plt Count MPV POC Glucose 359 H 260 H Urine Color Yellow Urine Clarity Hazy H Urine pH 5.0 Ur Specific [place] 1.015 Urine Protein Negative Urine Glucose (UA) Negative Urine Ketones Negative Urine Occult Blood Large H Urine Nitrate Negative Urine Bilirubin Negative Urine Urobilinogen Less than 2 Ur Leukocyte Esterase Negative Urine RBC Less than 1 Urine WBC 3 Ur Squamous Epith Cells <1 Urine Bacteria Occasional H Urine Mucus Few H Urine Yeast Moderate H Micro UA Comment Cath-culture ind Ur Microscopic Review Not Reportable Urine Culture Comments Cath-cult indicated 09/22/18 04:37 WBC 27.9 H RBC 2.22 L Hgb 7.8 L Hct 23.9 L MCV 107.4 H MCH 35.3 H MCHC 32.8 RDW 17.0 Plt Count 199 MPV 9.9 POC Glucose Urine Color Urine Clarity Urine pH Ur Specific [place] Urine Protein Urine Glucose (UA) Urine Ketones Urine Occult Blood Urine Nitrate Urine Bilirubin Urine Urobilinogen Ur Leukocyte Esterase Urine RBC Urine WBC Ur Squamous Epith Cells Urine Bacteria Urine Mucus Urine Yeast Micro UA Comment Ur Microscopic Review Urine Culture Comments Review/Management - Diagnosis (1) Localization-related (focal) (partial) symptomatic epilepsy and epileptic syndromes with complex partial seizures, intractable, with status epilepticus Code(s): G40.211 - Localization-related (focal) (partial) symptomatic epilepsy and epileptic syndromes with complex partial seizures, intractable, with status epilepticus Status: Acute Current Visit: Yes (2) Atrial fibrillation Code(s): I48.91 - Unspecified atrial fibrillation Status: Acute Current Visit: Yes (3) Acute encephalopathy Code(s): G93.40 - Encephalopathy, unspecified Status: Acute Current Visit: Yes (4) ICH (intracerebral hemorrhage) Code(s): I61.9 - Nontraumatic intracerebral hemorrhage, unspecified Status: Acute Current Visit: No - Review/Management Plan: Persistent comatose state. Off Versed MRI brain scan shows evacuation of left frontal hemorrhage perilesional edema There does appear to be increased signal bihemispheric sulcal regions on FLAIR imaging; this was not seen on his previous MRI scan. possibly related to fluid shifts, metabolic, seizure, infectious Progressive hypernatremia and increasing BUN and creatinine level. 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
[2018-09-22] MEDS: Allopurinol 100 MG Tablet PO SCH (08:23)
[2018-09-22] MEDS: Senna/Docusate Sodium 8.6/50 MG Tablet PO SCH ×2 (08:23→20:26)
[2018-09-22] MEDS: Magnesium Oxide 400 MG Tablet PO SCH ×2 (08:23→20:24)
[2018-09-22] MEDS: Metoprolol Tartrate 50 MG Tablet PO SCH ×2 (08:23→20:24)
[2018-09-22] MEDS: Insulin Detemir Inj 1,000 UNIT/10 ML Vial SQ SCH ×2 (08:24→21:29)
[2018-09-22] MEDS: Famotidine PF Inj 20 MG/2 ML Vial IV.PUSH SCH ×2 (08:24→20:23)
[2018-09-22] MEDS: PHENobarbital Inj 130 MG/ML Vial IV.PUSH SCH ×2 (08:24→20:23)
[2018-09-22] MEDS: Chlorhexidine 0.12% Oral Kit 15 ML UDC OROPHARYNG SCH ×2 (08:25→21:30)
[2018-09-22] MEDS: Beneprotein Powder Packet G-TUBE SCH ×3 (08:25→17:47)
[2018-09-22] MEDS: Sodium Chloride 23.4% Inj 38.5 MEQ in Water for Inj, Sterile 1,000 ML IV.CONT SCH (10:03)
[2018-09-22] MEDS: Lacosamide Inj 100 MG in Sodium Chlor 0.9% Inj 100 ML IV.SIG SCH ×2 (10:14→21:30)
[2018-09-22] MEDS: Fosphenytoin Inj 100 MGPE in Sodium Chlor 0.9% Inj 50 ML IV.SIG SCH ×2 (10:16→20:25)
--- NOTE | 2018-09-22 12:37 | P.PNCC ---
Subjective Subjective Remarks/Hospital Course: 69-year-old male with a history of recent ICH, and seizure disorder presents from home after he was seizing. Called paramedics arrived to find him seizing in the setting they gave him 2 of Versed to break his seizure after they establish IV access patient then in route has another seizure and they gave him 2 more Versed. The patient was a postictal voiding episode and became in respiratory distress needed to be intubated by the paramedics. They intubated him and arrived to emergency department sedated intubated and possibly seizing with contraction of the right hand. He was started on a propofol drip to keep him sedated as well as seizure-free and he has been admitted to the ICU. 09/07: No more seizure activity. Weaned to propofol 5 mics per kilogram per minute. AED restarted. CAT scan shows diminished size of left frontal lobe hematoma compared to prior study. 09/08: No more obvious seizure activity. Patient withdraws limbs aside from left foot. He grimaces to noxious stimulation. Breathes spontaneously over the ventilator. We need to confirm that he is indeed stopped seizing. Cerebyx added to Keppra. 09/09: Focus of left frontal intermittent seizure activity persists on 09/08. Still on Versed drip infusion and mechanical ventilation. Neurology service continues to adjust AED regimen. MRI yesterday without other significant injury aside from the known left frontal hematoma. 09/10: Focal area of intermittent seizure frontal lobe persisted yesterday on EEG. AED doses being adjusted. Urine output marginal, will reinstitute loop diuretic along with metolazone. Underlying cardiac function impaired at baseline with severe mitral and tricuspid regurgitation along with pulmonary hypertension as expected. Most recent echo is about a month ago. 09/11: Continued left fronto temporal seizure activity despite 3 AEDs. Juxtaposition of this 2 cm maturing left frontal lobe hematoma to the seizure activity is probably not coincidental. I have discussed with the family the concept of excising the mature hematoma in an attempt to attenuate the seizure activity. 09/12: Patient required versed yesterday for elevated airway pressures possibly related to seizure activity. No problems after Versed bolus and restarted. Plan is for resection of the seizure substrate in the left frontal lobe today. 09/13: Status post resection of left frontal lobe hemorrhagic mass yesterday. Return from OR on mechanical ventilation. Stable hemodynamics. Patient remains neurologically unstable with refractory seizures for which he underwent mass resection. 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 All sedation was stopped late Saturday and we are waiting for the gentleman to wake up. By cardiac echo obtained during his last admission he has both severe mitral and tricuspid regurgitation. He tends to retain fluid and is been chronically on Bumex 2 mg and metolazone 5 mg daily. Renal function tests indicate a prerenal type azotemia. It is unlikely that this represents too little intravascular volume because his weight is up and he has peripheral edema in his lower extremities. I have added albumin in an attempt to mobilize some fluid. Fortunately gas exchange has been good. 09/15: off sedation x 48h. still not following commands. very poor neuro exam. GCS 3. ? weak flicker of movement in the right upper extremity (unclear if posturing or withdraw) and slight grimace to painful stimuli. otherwise, no movement in any extremity. +cough. + corneals. pupils 2mm equal and reactive. EEG ordered. 09/16: remains off sedation for days. now worsening exam: no grimace at all to painful stimuli. GCS remains 3. EEG persistently poor, but no overt seizures. MRI ordered today without new ischemic area. anti-epileptic levels therapeutic. discussed with Dr. Bonilla: if no improvements by the end of the week, prognosis is grim at best. discussed this together at length with the family. states she does knows that he would not want trach/peg and would not want to live if he was not awake and off machines. 09/17: Elevated BUN likely contributing to his somnolence. Considering the extended period of time he was on moderate to high dose Versed it may well take many more days for that to clear as well. I am forced to hydrate him knowing that it will increase his peripheral edema. But were going to have to normalize his urea nitrogen before we can assume he is encephalopathic for some other reason. 09/18: Creatinine decline but BUN has increased again. Patient is being aggressively hydrated with hypotonic solution but were having a hard time keeping up with the was moderate diuresis from the hyperglycemia. Once again will increase the long-acting insulin coverage. Certainly elevated sodium and contributing to his somnolence. Decadron is making glucose control even harder. Underlying all this is heart failure and his ongoing retention of fluid , complicating all of these issues. 09/19: Minimal improvement and osmolality and BUN. Persistent white blood cell count elevation. No change in neurologic status. Family wishes to continue pursuing aggressively all avenues. Presently waiting for benzodiazepines to wear off. 09/20: Aside from some mouth movements there is no real increase in continuous activity nor withdrawal. Electrolytes require correction today after diuretics changed for the treatment of chronic heart failure. 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 No movement nor withdrawal today. 6 days since all all sedation and analgesia stopped. BUN 141 likely contributing to somnolence. Patient is well hydrated with greater than 1500 mL's of urine per day yet prerenal pattern persists. IV has been running at 150 mL's per hour for many days now and azotemia worsens. Possible component of osmotic diuresis secondary to hyperglycemia? In my discussions with family we have all decided if patient does not wake up more after 7 days without sedation, and normalized BUN, then recovery from this episode of status seizures is a lot less likely. 09/22: Remains unresponsive severely encephalopathy. WBC count increasing 20 7K today. Infectious disease consulted. Also patient's BUN/creatinine increasing BUN is 153 with a creatinine 1.5. D/W Neurology Dr. Bonilla, re nephrology consult for possible dialysis. He is recommending consulting palliative care. As the pathology may show glioma Objective Vital Signs / I&O: Vital Signs 09/21/18 13:00 09/21/18 14:00 09/21/18 15:00 Temperature Pulse Rate 90 82 85 Respiratory Rate Blood Pressure 103/65 106/68 106/64 Pulse Oximetry 98 98 98 09/21/18 15:33 09/21/18 16:00 09/21/18 17:00 Temperature 97.8 F Pulse Rate 89 80 Respiratory Rate 17 19 Blood Pressure 115/63 101/59 L Pulse Oximetry 100 99 100 09/21/18 18:00 09/21/18 19:00 09/21/18 20:00 Temperature 97.7 F Pulse Rate 93 H 92 H 98 H Respiratory Rate 15 Blood Pressure 107/72 108/68 100/67 Pulse Oximetry 99 98 98 09/21/18 20:43 09/21/18 21:00 09/21/18 22:00 Temperature Pulse Rate 97 H 91 H Respiratory Rate 17 Blood Pressure 102/63 100/57 L Pulse Oximetry 98 98 99 09/21/18 23:00 09/21/18 23:46 09/22/18 00:00 Temperature Pulse Rate 89 89 Respiratory Rate 15 Blood Pressure 99/62 L 92/55 L Pulse Oximetry 99 99 99 09/22/18 01:00 09/22/18 02:00 09/22/18 02:15 Temperature Pulse Rate 90 88 85 Respiratory Rate Blood Pressure 101/63 103/64 Pulse Oximetry 99 100 100 09/22/18 02:30 09/22/18 02:48 09/22/18 04:00 Temperature 97.4 F L Pulse Rate 84 67 88 Respiratory Rate 26 H Blood Pressure 102/52 L 100/65 Pulse Oximetry 99 99 99 09/22/18 04:51 09/22/18 06:00 09/22/18 08:58 Temperature Pulse Rate 88 Respiratory Rate 15 18 Blood Pressure Pulse Oximetry 100 99 Intake & Output 09/21/18 09/22/18 09/22/18 18:59 06:59 18:59 Intake Total 2362.6 / 2362.6 4052.225 / 4052.225 Output Total 1380 / 1380 500 / 500 Balance 982.6 / 982.6 3552.225 / 3552.225 Weight 117.7 kg Intake: IV 1162.6 / 1162.6 3172.225 / 3172.225 Sodium Chloride 23.4% Inj 38.5 1000 / 1000 3009.625 / 3009.625 MEQ In Sterile Water for Inj 1, 000 ML @ 150 mls/hr IV.CONT . Q6H44M MAGALY Rx#:[id number] Cerebyx Inj 130 MGPE In NS Inj 52.6 / 52.6 52.6 / 52.6 50 ML @ 216 mls/hr IV.SIG Q12HR MAGALY Rx#:[id number] Vimpat Inj 100 MG In NS Inj 100 110 / 110 110 / 110 ML @ 110 mls/hr IV.SIG Q12HR MAGALY Rx#:[id number] Tube Feeding 520 / 520 480 / 480 Water Bolus Amount 680 / 680 400 / 400 Output: Urine 1200 / 1200 Stool 0 / 0 50 / 50 Urine Amount (Catheter) 450 / 450 Indwelling Temp Sensing 450 / 450 Catheter Gastric Drainage 180 / 180 Orogastric Tube 180 / 180 Other: Date of Last Bowel Movement 09/21/18 09/22/18 Result Diagrams: 09/22/18 04:37 09/22/18 04:37 Objective Remarks: gen: elderly male, in bed on ventilator heent: Incision clean dry neck: no jvd. trachea midline. Orally intubated chest: PRVC. equal chest rise. fio2 40%, nielson clear. cv: normal rate, regular rhythm. sinus, no JVD. abd: soft, nontender, nondistended. no guarding. Bowel sounds active extr: Some thigh edema. distal pulses 2+. neuro: GCS 3. no movement at all today to deep stimulation. Some occasional mouth and jaw movement. Breathes comfortably on spontaneous breathing trials with good respiratory drive. Assessment and Plan - Assessment and Plan Plan: Assessment: 77yM presented in status epilepticus with frontal mass now s/p craniotomy and mass resection with persistently very poor neurologic exam. MRI today. remains critically ill today, off pathway, with persistently dense encephalopathy. the longer we go without neurologic improvement, the more grim the prognosis. Recommend waiting until the end of the week, but then will likely need to get palliative care involved if no improvements. Will continue hydration with quarter normal saline and see how he responds but worsening azotemia is concerning. 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 Final path from sent out pending -IV Keppra. Cerebyx added 09/07. Phenobarbital added -Left frontal focus of intermittent seizures persists 09/08, 09/10, 09/11. improving eeg 09/15 -Plan resection of seizure substrate and left frontal lobe -> 09/12 -Saturday will be 7 days following removal of all sedation aside from a low dose of phenobarbital for seizure control. - ICH Old from beginning of August -Decreasing in size Resp: Acute hypoxic and hypercarbic Respiratory failure- persistent -Attempt to wean and extubate when seizure-free. Mental status will not permit extubation -Vent bundle -DuoNeb's as needed -Daily spontaneous breathing trials started CV: Atrial fibrillation Severe mitral and tricuspid regurgitation Pulmonary hypertension Dyslipidemia Hypertension -Metoprolol -Hold anticoagulation due to recent ICH -Hold Bumex 1 mg IV BID -Pravastatin -Metolazone -Metoprolol, and for A. fib rate control Renal: d/c bishop -Azotemia worsening -Discussed with neurology, considering poor prognosis will hold off nephrology consult and get palliative care FEN/GI: Acute protein calorie malnutrition- severe tube feeds ICU electrolyte protocol daily bmp, mg, phos Glucerna 1.5 enteral feeds continuous Heme/ID: C. difficile infection -Meets criteria for severe C. difficile infection-WBC count of 20 7K, creatinine 1.53 -ID consult -Patient received vancomycin and Zosyn during hospital admission August 19 and was discharged on Levaquin. -Diarrheal stool noticed day 3, antigen and toxin positive -Oral vancomycin 250 4 times daily started 09/09. Discontinue after 14 days. Endocrine: Diabetes -Insulin sliding scale -Made more difficult by Decadron, increased Levemir to 22 units subcu twice daily, continue increase sliding scale correction -Add thyroid replacement. DVT GI prophylaxis -Teds SCDs -Subcu heparin -Pepcid Overall impression: This gentleman is critically ill having sustained seizures which required intubation and mechanical ventilation for control. We are unable to wean him from the ventilator at this time. Intermittent nonconvulsive seizures were documented multiple times by EEG. Remains critically ill and neurologically unstable. Diuretics have been discontinued almost a week ago but still markedly elevated BUN; will need to be corrected before we can conclude that his mental status is severely impaired. Lengthy talk with family again today 09/20, particularly son who is sort of spokesman, , and nephew. I spoke with son again this morning 09/21 and encouraged him to make a decision soon about whether they would like us to proceed with continued aggressive care including tracheostomy and PEG. Critical care 37 minutes aside from procedures. Code Status: Full Discussed Condition With: Dr. Bonilla neurosurgery team
--- NOTE | 2018-09-22 12:46 | P.CONID ---
History of Present Illness Service: Infectious Disease Consult date: 09/22/18 Requesting Physician: Marcie Ochoa Reason for Consult: Evaluation and Mment of worsening leucocytosis in pt with Cdiff Primary Care Provider: Gary Rivera Chief Complaint: Seizure History of Present Illness: Mr. Yancey is a 77-year-old male who was admitted on September 06, 2018 for seizure on arrival. Paramedics were called and patient was given Versed and transported to the hospital. She had postictal voiding was in respiratory distress and therefore had to be intubated by the paramedics. In the ER patient was seizing actively patient was started on a propofol drip and admitted to the ICU. CT scan showed a left frontal lobe hematoma. Neurology was consulted and patient was diagnosed with status epilepticus and started on an intensive AED regimen. An MRI of the brain was done which showed left frontal hematoma. Patient reportedly also has a history of intracranial hemorrhage prior to this admission and a seizure disorder diagnosis even prior to this admission. Neurosurgery was consulted and on 09/12/2018 patient underwent stereotactic image guided left frontal craniotomy with microsurgical resection of the hemorrhagic mass. 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 Cardiac echo showed severe mitral as well as tricuspid valve region regurgitation. On 09/14 patient's sedation was weaned off the patient did not show any neurological changes. His GCS on 1029 remained at 3 with some flickering movement noted in the right upper extremity and grimace to painful stimuli. Patient has several metabolic causes for possible enthesopathy in addition to this mass such as elevated BUN, hyponatremia. Due to persistent severe encephalopathy as well as elevated white count in the setting of positive C. difficile infectious disease was consulted. At the time of my evaluation patient remains in the ICU, intubated ventilated, currently not on any vasopressors, on AED regimen. Per discussion with RN the stool volume is actually improved today while on vancomycin oral. Review of Systems unobtainable due to endotracheal tube, unobtainable due to mental status PMFSH - History History Provided By: Family Member, Medical Record - Medical History Medical History: Medical History (Last Reviewed 09/22/18 @ 09:34 by Desirae Marino) MDRO (multiple drug resistant organisms) resistance Onset Date: ~09/08/18 Atrial fibrillation Diabetes Gout - Surgical History Surgical History: Surgical History (Last Reviewed 09/22/18 @ 09:34 by Desirae Marino) H/O craniotomy AICD (automatic cardioverter/defibrillator) present - Family History Family History: Family History (Last Reviewed 09/21/18 @ 16:30 by Gaston Torres) Other Family history non-contributory - Tobacco History Second Hand Smoke Exposure: No Smoking Status: Never smoker - Alcohol History How Often Do You Have a Drink Containing Alcohol: Never - Substance Use History Substance History: No History of Abuse - Travel History Recent Travel in the [place] Within the Last 8 Weeks: No Recent Travel Out of the Country Within the Last 8 Weeks: No - Immunization History Tetanus Immunization: Unsure Hx Influenza Vaccine This Season: Unable to Assess Medications and Allergies Active Medications: Active Medications Acetaminophen (Tylenol) 650 mg PO Q6H PRN PRN Reason: FOR FEVER >101F Last Admin: 09/11/18 19:57 Dose: 650 mg Al Hydroxide/Mg Hydroxide (Milk Of Magnbreanne Liq) 30 ml PO Q12H PRN PRN Reason: Mild Constipation Albuterol (Duoneb Neb (Prn)) 1 ampul NEB Q2HR NEB PRN PRN Reason: WHEEZING Last Admin: 09/17/18 19:45 Dose: 1 ampul Allopurinol (Zyloprim) 100 mg PO DAILY [facility] Last Admin: 09/22/18 08:23 Dose: 100 mg Bisacodyl (Dulcolax Supp) 10 mg RECTAL DAILY PRN PRN Reason: SEVERE CONSITIPATION Chlorhexidine Gluconate (Peridex 0.12% Oral Kit) 15 ml OROPHARYNG BID@0800, 2000 [facility] Last Admin: 09/22/18 08:25 Dose: 15 ml Dexamethasone Sodium Phosphate (Decadron Inj) 4 mg IV.PUSH Q6H [facility] Last Admin: 09/22/18 08:24 Dose: 4 mg Dextrose (D50w Vial) 50 ml IV.PUSH UNSCH PRN PRN Reason: PER HYPOGLYCEMIA PROTOCOL Diltiazem HCl (Cardizem Cd 24hr) 120 mg PO DAILY [facility] Last Admin: 09/07/18 12:00 Dose: Not Given Diltiazem HCl (Cardizem) 30 mg PO Q6H [facility] Last Admin: 09/22/18 08:23 Dose: 30 mg Famotidine (Pepcid Pf Inj) 20 mg IV.PUSH Q12HR [facility] Last Admin: 09/22/18 08:24 Dose: 20 mg Glucagon (Glucagon Inj) 1 mg OTHER PRN PRN PRN Reason: for Hypoglycemia Protocol Heparin Sodium (Porcine) (Heparin Inj) 5,000 units SQ Q8HR [facility] Last Admin: 09/22/18 06:32 Dose: 5,000 units Lacosamide 100 mg/ Sodium (Chloride) 110 mls @ 110 mls/hr IV.SIG Q12HR [facility] Last Admin: 09/22/18 10:14 Dose: 110 mls/hr Fosphenytoin Sodium 100 mgpe/ (Sodium Chloride) 52 mls @ 216 mls/hr IV.SIG Q12HR [facility] Last Admin: 09/22/18 10:16 Dose: 216 mls/hr Sodium Chloride (Ns Inj) 1,000 mls @ 150 mls/hr IV.CONT .Q6H40M [facility] Insulin Aspart (Novolog Insulin Correctional Sugar Inj) 0 unit SQ Q6HR [facility]; Protocol Last Admin: 09/22/18 11:40 Dose: 10 unit Insulin Detemir (Levemir Inj) 22 unit SQ BID [facility] Last Admin: 09/22/18 08:24 Dose: 22 unit Lactulose (Lactulose Liq) 30 ml PO DAILY PRN PRN Reason: SEVERE CONSITIPATION Levothyroxine Sodium (Synthroid) 75 mcg PO DAILY@0600 [facility] Last Admin: 09/22/18 06:33 Dose: 75 mcg Lorazepam (Ativan Inj) 1 mg IV.PUSH Q1H PRN PRN Reason: Agitation/sedation or Seizure Last Admin: 09/07/18 04:37 Dose: 1 mg Magnesium Oxide (Mag-Ox) 400 mg PO BID [facility] Last Admin: 09/22/18 08:23 Dose: 400 mg Metolazone (Zaroxolyn) 5 mg PO DAILY [facility] Last Admin: 09/16/18 09:18 Dose: 5 mg Metoprolol Tartrate (Lopressor) 50 mg PO BID [facility] Last Admin: 09/22/18 08:23 Dose: 50 mg Miscellaneous Medication () 1 each OROPHARYNG 0000,0400,1200,1600 [facility] Last Admin: 09/22/18 05:53 Dose: 1 each Morphine Sulfate (Morphine Inj) 2 mg IV.PUSH Q2H PRN PRN Reason: PAIN SCALE 6 TO 10 Ondansetron HCl (Zofran Inj) 4 mg IV.PUSH Q6H PRN PRN Reason: NAUSEA OR VOMITING Phenobarbital Sodium (Luminal Inj) 60 mg IV.PUSH Q12HR [facility] Last Admin: 09/22/18 08:24 Dose: 60 mg Pravastatin Sodium (Pravachol) 40 mg PO HS [facility] Last Admin: 09/21/18 22:03 Dose: 40 mg Senna/Docusate Sodium (Janeen-Colace) 1 tab PO BID [facility] Last Admin: 09/22/18 08:23 Dose: 1 tab Sennosides (Senokot) 17.2 mg PO Q12H PRN PRN Reason: Moderate Constipation Sodium Chloride (Ns Flush) 2 ml IV.FLUSH BID [facility] Last Admin: 09/22/18 10:14 Dose: 2 ml Sodium Chloride (Ns Flush) 2 ml IV.FLUSH PRN PRN PRN Reason: FLUSH AFTER USING IV ACCESS Last Admin: 09/20/18 21:08 Dose: 2 ml Sterile Water (Free Water) 200 ml G-TUBE Q6HR [facility] Last Admin: 09/22/18 06:32 Dose: 200 ml Vancomycin HCl (Vancomycin Po) 250 mg PO QID [facility] Last Admin: 09/22/18 08:23 Dose: 250 mg Whey (Beneprotein Powder) 1 packet G-TUBE TID [facility] Last Admin: 09/22/18 08:25 Dose: 1 packet Allergies Allergy/AdvReac Type Severity Reaction Status Date / Time digitoxin Allergy Severe Hallucinati Verified 08/19/18 15:46 ons Home Medications Medication Instructions Recorded Confirmed Type diltiazem HCl 1 cap PO DAILY 08/19/18 08/19/18 History magnesium oxide 400 mg PO BID 08/19/18 08/19/18 History metolazone 5 mg PO DAILY 08/19/18 08/19/18 History metoprolol tartrate 50 mg PO BID 08/19/18 08/19/18 History potassium chloride 1 tab PO BID 08/19/18 08/19/18 History simvastatin 20 mg PO QPM 08/19/18 08/19/18 History Exam Vital signs: Vital Signs 09/21/18 13:00 09/21/18 14:00 09/21/18 15:00 Temperature Pulse Rate 90 82 85 Respiratory Rate Blood Pressure 103/65 106/68 106/64 Pulse Oximetry 98 98 98 09/21/18 15:33 09/21/18 16:00 09/21/18 17:00 Temperature 97.8 F Pulse Rate 89 80 Respiratory Rate 17 19 Blood Pressure 115/63 101/59 L Pulse Oximetry 100 99 100 09/21/18 18:00 09/21/18 19:00 09/21/18 20:00 Temperature 97.7 F Pulse Rate 93 H 92 H 98 H Respiratory Rate 15 Blood Pressure 107/72 108/68 100/67 Pulse Oximetry 99 98 98 09/21/18 20:43 09/21/18 21:00 09/21/18 22:00 Temperature Pulse Rate 97 H 91 H Respiratory Rate 17 Blood Pressure 102/63 100/57 L Pulse Oximetry 98 98 99 09/21/18 23:00 09/21/18 23:46 09/22/18 00:00 Temperature Pulse Rate 89 89 Respiratory Rate 15 Blood Pressure 99/62 L 92/55 L Pulse Oximetry 99 99 99 09/22/18 01:00 09/22/18 02:00 09/22/18 02:15 Temperature Pulse Rate 90 88 85 Respiratory Rate Blood Pressure 101/63 103/64 Pulse Oximetry 99 100 100 09/22/18 02:30 09/22/18 02:48 09/22/18 04:00 Temperature 97.4 F L Pulse Rate 84 67 88 Respiratory Rate 26 H Blood Pressure 102/52 L 100/65 Pulse Oximetry 99 99 99 09/22/18 04:51 09/22/18 06:00 09/22/18 08:58 Temperature Pulse Rate 88 Respiratory Rate 15 18 Blood Pressure Pulse Oximetry 100 99 Intake & Output 09/21/18 09/22/18 09/22/18 18:59 06:59 18:59 Intake Total 2362.6 / 2362.6 4052.225 / 4052.225 Output Total 1380 / 1380 500 / 500 Balance 982.6 / 982.6 3552.225 / 3552.225 Weight 117.7 kg Intake: IV 1162.6 / 1162.6 3172.225 / 3172.225 Sodium Chloride 23.4% Inj 38.5 1000 / 1000 3009.625 / 3009.625 MEQ In Sterile Water for Inj 1, 000 ML @ 150 mls/hr IV.CONT . Q6H44M [facility] Rx#:[id number] Cerebyx Inj 130 MGPE In NS Inj 52.6 / 52.6 52.6 / 52.6 50 ML @ 216 mls/hr IV.SIG Q12HR [facility] Rx#:[id number] Vimpat Inj 100 MG In NS Inj 100 110 / 110 110 / 110 ML @ 110 mls/hr IV.SIG Q12HR [facility] Rx#:[id number] Tube Feeding 520 / 520 480 / 480 Water Bolus Amount 680 / 680 400 / 400 Output: Urine 1200 / 1200 Stool 0 / 0 50 / 50 Urine Amount (Catheter) 450 / 450 Indwelling Temp Sensing 450 / 450 Catheter Gastric Drainage 180 / 180 Orogastric Tube 180 / 180 Other: Date of Last Bowel Movement 09/21/18 09/22/18 Narrative: GENERAL: Sedated, on the vent, no response to painful stimuli. SKIN: Cool and dry, no generalized rash HEAD: Atraumatic. Normocephalic. No temporal or scalp tenderness. EYES: Pupils equal round and reactive. Scleral icterus. No injection or drainage. No petechia ENT: Orally intubated NECK: Trachea midline. Supple, nontender, no meningeal signs. CARDIOVASCULAR: HS audible,? murmur. RESPIRATORY: Air entry equal bilaterally. Clear to auscultation bilaterally. GASTROINTESTINAL: Abdomen soft,NT, no guarding or rigidity. MUSCULOSKELETAL: Extremities without clubbing, cyanosis. NEUROLOGICAL: No spontaneous eye opening, no response to verbal or deep painful stimuli. Psych could not be assessed IV line sites ok. Results - Labs CBC & Chem 7: 09/22/18 04:37 09/22/18 04:37 Labs: Laboratory Results - last 24 hr 09/21/18 09/21/18 09/22/18 12:10 17:27 04:37 WBC RBC Hgb Hct MCV MCH MCHC RDW Plt Count MPV Sodium 139 Potassium 5.8 H Chloride 106 Carbon Dioxide 21.2 Anion Gap 12 BUN 153 H Creatinine 1.53 H Estimated GFR 44 L POC Glucose 260 H Random Glucose 207 H Calcium 7.7 L Phosphorus 4.8 Magnesium 2.7 H Urine Color Yellow Urine Clarity Hazy H Urine pH 5.0 Ur Specific [place] 1.015 Urine Protein Negative Urine Glucose (UA) Negative Urine Ketones Negative Urine Occult Blood Large H Urine Nitrate Negative Urine Bilirubin Negative Urine Urobilinogen Less than 2 Ur Leukocyte Esterase Negative Urine RBC Less than 1 Urine WBC 3 Ur Squamous Epith Cells <1 Urine Bacteria Occasional H Urine Mucus Few H Urine Yeast Moderate H Micro UA Comment Cath-culture ind Ur Microscopic Review Not Reportable Urine Culture Comments Cath-cult indicated Phenytoin 16.4 Phenobarbital 29.4 09/22/18 09/22/18 09/22/18 04:37 06:46 11:19 WBC 27.9 H RBC 2.22 L Hgb 7.8 L Hct 23.9 L MCV 107.4 H MCH 35.3 H MCHC 32.8 RDW 17.0 Plt Count 199 MPV 9.9 Sodium Potassium Chloride Carbon Dioxide Anion Gap BUN Creatinine Estimated GFR POC Glucose 284 H 245 H Random Glucose Calcium Phosphorus Magnesium Urine Color Urine Clarity Urine pH Ur Specific [place] Urine Protein Urine Glucose (UA) Urine Ketones Urine Occult Blood Urine Nitrate Urine Bilirubin Urine Urobilinogen Ur Leukocyte Esterase Urine RBC Urine WBC Ur Squamous Epith Cells Urine Bacteria Urine Mucus Urine Yeast Micro UA Comment Ur Microscopic Review Urine Culture Comments Phenytoin Phenobarbital - Imaging Chest X-Ray 09/06/18 23:11 CONCLUSION: 1. Bibasilar densities. 2. 2. Cardiomegaly 3. 3. Endotracheal tube tip is 2.5 cm above the jose antonio. Head CT 09/07/18 22:54 CONCLUSION: 1. Decrease in size of left frontal hematoma. . Head MRI 09/08/18 07:10 CONCLUSION: 1. Evolving left frontal mid convexity intra-axial hematoma measuring 2 cm with mild surrounding vasogenic edema but no significant mass effect or midline shift. 2. Otherwise, no intercurrent hemorrhage, acute infarction or hydrocephalus. Chest X-Ray 09/11/18 00:00 CONCLUSION: 1. Persistent left basilar consolidation/effusion with stable atelectatic changes above the right hemidiaphragm. 2. Heart size is prominent but well compensated. 3. Stable position of life-support tubes. Head MRI 09/12/18 07:06 CONCLUSION: 1. 2 cm hemorrhagic mass in the left frontal lobe with surrounding edema and minimal localized mass effect. No evidence for recent infarction. No other enhancing lesions within the brain. Head CT 09/13/18 00:00 CONCLUSION: 1. Interval left frontal craniotomy with some hemorrhage in the operative bed and surrounding edema in the left frontal lobe. Currently no significant mass effect or shift. Drain in the subdural space. . Head MRI 09/16/18 00:00 CONCLUSION: 1. Postsurgical changes left frontal lobe with minimal basilar edema and minimal residual hemorrhage. 2. No midline shift or mass effect. 3. Cerebral atrophy. 4. No acute infarction. 5. Old left cerebellar infarct. Chest X-Ray 09/19/18 00:00 CONCLUSION: 1. Stable tubes and lines, as above. 2. Cardiomegaly with stable positive fluid balance. 3. Persistent retrocardiac opacity likely reflecting left basilar consolidation /effusion. 4. Improved aeration of the right lower lung zone. Chest X-Ray 09/20/18 00:00 CONCLUSION: No significant interval change. Mild patchy left greater than right basilar lung opacity again seen. 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 Metabolic causes contributing : hypernatremia, azotemia. Acute resp failure on vent Acute renal failure Recs: Continue Oral vanco Start Dificid 100 mg po bid Blood cultures x 2 Follow UA positive for yeast will add IV diflucan. Follow cultures Follow clinical course. ronnie Paagn prognosis guarded, palliative care consulted. ronnie RN
[2018-09-22] MEDS: Sod Chloride 0.9% Inj 1,000 ML IV.CONT SCH ×2 (13:06→22:50)
--- NOTE | 2018-09-22 14:10 | P.PNNS ---
Subjective Interval history: nursing reports no neuro changes overnight, remains off sedation, no eye opening , no purposeful movement Physical Exam Vital signs: Vital Signs 09/21/18 15:00 09/21/18 15:33 09/21/18 16:00 Temperature 97.8 F Pulse Rate 85 89 Respiratory Rate 17 19 Blood Pressure 106/64 115/63 Pulse Oximetry 98 100 99 09/21/18 17:00 09/21/18 18:00 09/21/18 19:00 Temperature Pulse Rate 80 93 H 92 H Respiratory Rate Blood Pressure 101/59 L 107/72 108/68 Pulse Oximetry 100 99 98 09/21/18 20:00 09/21/18 20:43 09/21/18 21:00 Temperature 97.7 F Pulse Rate 98 H 97 H Respiratory Rate 15 17 Blood Pressure 100/67 102/63 Pulse Oximetry 98 98 98 09/21/18 22:00 09/21/18 23:00 09/21/18 23:46 Temperature Pulse Rate 91 H 89 Respiratory Rate 15 Blood Pressure 100/57 L 99/62 L Pulse Oximetry 99 99 99 09/22/18 00:00 09/22/18 01:00 09/22/18 02:00 Temperature Pulse Rate 89 90 88 Respiratory Rate Blood Pressure 92/55 L 101/63 103/64 Pulse Oximetry 99 99 100 09/22/18 02:15 09/22/18 02:30 09/22/18 02:48 Temperature Pulse Rate 85 84 67 Respiratory Rate 26 H Blood Pressure 102/52 L Pulse Oximetry 100 99 99 09/22/18 04:00 09/22/18 04:51 09/22/18 06:00 Temperature 97.4 F L Pulse Rate 88 88 Respiratory Rate 15 Blood Pressure 100/65 Pulse Oximetry 99 100 09/22/18 08:58 Temperature Pulse Rate Respiratory Rate 18 Blood Pressure Pulse Oximetry 99 Intake & Output 09/21/18 09/22/18 09/22/18 18:59 06:59 18:59 Intake Total 2362.6 / 2362.6 4052.225 / 4052.225 352 / 352 Output Total 1380 / 1380 500 / 500 Balance 982.6 / 982.6 3552.225 / 3552.225 352 / 352 Weight 117.7 kg Intake: IV 1162.6 / 1162.6 3172.225 / 3172.225 352 / 352 Sodium Chloride 23.4% Inj 38.5 1000 / 1000 3009.625 / 3009.625 300 / 300 MEQ In Sterile Water for Inj 1, 000 ML @ 150 mls/hr IV.CONT . Q6H44M [facility] Rx#:[id number] Cerebyx Inj 100 MGPE In NS Inj 52.6 / 52.6 52.6 / 52.6 52 / 52 50 ML @ 216 mls/hr IV.SIG Q12HR [facility] Rx#:[id number] Vimpat Inj 100 MG In NS Inj 100 110 / 110 110 / 110 ML @ 110 mls/hr IV.SIG Q12HR [facility] Rx#:[id number] Tube Feeding 520 / 520 480 / 480 Water Bolus Amount 680 / 680 400 / 400 Output: Urine 1200 / 1200 Stool 0 / 0 50 / 50 Urine Amount (Catheter) 450 / 450 Indwelling Temp Sensing 450 / 450 Catheter Gastric Drainage 180 / 180 Orogastric Tube 180 / 180 Other: Date of Last Bowel Movement 09/21/18 09/22/18 Narrative: Intubated, mechanically ventilated no sedative drips pupils equal no eye opening no response to pain x 4 scalp wound clean, dry healing well - Urinary Catheter Management Indwelling Urethral Catheter Cath placed during this visit: yes, but has since been removed by the nurse Reason for continuing: Decision to DC catheter Insertion date: 09/06/18 Insertion time: 23:00 Removal date: 09/08/18 Removal time: 18:21 Straight Cath placed during this visit: yes, but has since been removed by the nurse Reason for continuing: Decision to DC catheter Insertion date: 09/09/18 Insertion time: 02:20 Removal date: 09/10/18 Removal time: 12:00 Indwelling Temp Sensing Catheter Cath placed during this visit: yes Reason for continuing: Acute urinary retention Insertion date: 09/12/18 Insertion time: 15:30 Assessment and Plan - Plan 77yoM with intractable seizures s/p craniotomy 09/12 (Jonel) for resection of hemorrhagic seizure focus. Head MRI 09/16/18 00:00 CONCLUSION: 1. Postsurgical changes left frontal lobe with minimal basilar edema and minimal residual hemorrhage. 2. No midline shift or mass effect. 3. Cerebral atrophy. 4. No acute infarction. 5. Old left cerebellar infarct. no changes to neuro exam, remains poor, off sedatives, no plan for further interventions from a surgical standpoint neuro following cont Anti seizure medication cont critical care dc anisa 09/26/18
[2018-09-22 14:11] LABS: Hematocrit 24.3 % (39.0-51.0); Hemoglobin 7.7 gm/dL (13.0-17.0)
--- NOTE | 2018-09-22 14:45 | P.PNNP ---
Subjective Interval history: Patient is intubated on ventilator has anasarca Physical Exam Vital signs: Vital Signs 09/21/18 15:00 09/21/18 15:33 09/21/18 16:00 Temperature 97.8 F Pulse Rate 85 89 Respiratory Rate 17 19 Blood Pressure 106/64 115/63 Pulse Oximetry 98 100 99 09/21/18 17:00 09/21/18 18:00 09/21/18 19:00 Temperature Pulse Rate 80 93 H 92 H Respiratory Rate Blood Pressure 101/59 L 107/72 108/68 Pulse Oximetry 100 99 98 09/21/18 20:00 09/21/18 20:43 09/21/18 21:00 Temperature 97.7 F Pulse Rate 98 H 97 H Respiratory Rate 15 17 Blood Pressure 100/67 102/63 Pulse Oximetry 98 98 98 09/21/18 22:00 09/21/18 23:00 09/21/18 23:46 Temperature Pulse Rate 91 H 89 Respiratory Rate 15 Blood Pressure 100/57 L 99/62 L Pulse Oximetry 99 99 99 09/22/18 00:00 09/22/18 01:00 09/22/18 02:00 Temperature Pulse Rate 89 90 88 Respiratory Rate Blood Pressure 92/55 L 101/63 103/64 Pulse Oximetry 99 99 100 09/22/18 02:15 09/22/18 02:30 09/22/18 02:48 Temperature Pulse Rate 85 84 67 Respiratory Rate 26 H Blood Pressure 102/52 L Pulse Oximetry 100 99 99 09/22/18 04:00 09/22/18 04:51 09/22/18 06:00 Temperature 97.4 F L Pulse Rate 88 88 Respiratory Rate 15 Blood Pressure 100/65 Pulse Oximetry 99 100 09/22/18 08:58 Temperature Pulse Rate Respiratory Rate 18 Blood Pressure Pulse Oximetry 99 Intake & Output 09/21/18 09/22/18 09/22/18 18:59 06:59 18:59 Intake Total 2362.6 / 2362.6 4052.225 / 4052.225 352 / 352 Output Total 1380 / 1380 500 / 500 Balance 982.6 / 982.6 3552.225 / 3552.225 352 / 352 Weight 117.7 kg Intake: IV 1162.6 / 1162.6 3172.225 / 3172.225 352 / 352 Sodium Chloride 23.4% Inj 38.5 1000 / 1000 3009.625 / 3009.625 300 / 300 MEQ In Sterile Water for Inj 1, 000 ML @ 150 mls/hr IV.CONT . Q6H44M [facility] Rx#:[id number] Cerebyx Inj 100 MGPE In NS Inj 52.6 / 52.6 52.6 / 52.6 52 / 52 50 ML @ 216 mls/hr IV.SIG Q12HR [facility] Rx#:[id number] Vimpat Inj 100 MG In NS Inj 100 110 / 110 110 / 110 ML @ 110 mls/hr IV.SIG Q12HR [facility] Rx#:[id number] Tube Feeding 520 / 520 480 / 480 Water Bolus Amount 680 / 680 400 / 400 Output: Urine 1200 / 1200 Stool 0 / 0 50 / 50 Urine Amount (Catheter) 450 / 450 Indwelling Temp Sensing 450 / 450 Catheter Gastric Drainage 180 / 180 Orogastric Tube 180 / 180 Other: Date of Last Bowel Movement 09/21/18 09/22/18 Narrative: Intubated, mechanically ventilated no sedative drips pupils equal no eye opening no response to pain x 4 scalp wound clean, dry healing well - Urinary Catheter Management Indwelling Urethral Catheter Cath placed during this visit: yes, but has since been removed by the nurse Reason for continuing: Decision to DC catheter Insertion date: 09/06/18 Insertion time: 23:00 Removal date: 09/08/18 Removal time: 18:21 Straight Cath placed during this visit: yes, but has since been removed by the nurse Reason for continuing: Decision to DC catheter Insertion date: 09/09/18 Insertion time: 02:20 Removal date: 09/10/18 Removal time: 12:00 Indwelling Temp Sensing Catheter Cath placed during this visit: yes Reason for continuing: Acute urinary retention Insertion date: 09/12/18 Insertion time: 15:30 Assessment and Plan - Assessment (1) Chronic kidney disease (CKD) stage G3a/A1, moderately decreased glomerular filtration rate (GFR) between 45-59 mL/min/1.73 square meter and albuminuria creatinine ratio less than 30 mg/g Code(s): N18.3 - Chronic kidney disease, stage 3 (moderate) Status: Acute (2) Hyperkalemia Code(s): E87.5 - Hyperkalemia Status: Acute (3) ICH (intracerebral hemorrhage) Code(s): I61.9 - Nontraumatic intracerebral hemorrhage, unspecified Status: Acute Qualifiers: Intracerebral hemorrhage etiology: traumatic Encounter type: initial encounter Laterality: left Loss of consciousness presence/duration: with LOC of unspecified duration Qualified Code(s): S06.359A - Traumatic hemorrhage of left cerebrum with loss of consciousness of unspecified duration, initial encounter (4) Localization-related (focal) (partial) symptomatic epilepsy and epileptic syndromes with complex partial seizures, intractable, with status epilepticus Code(s): G40.211 - Localization-related (focal) (partial) symptomatic epilepsy and epileptic syndromes with complex partial seizures, intractable, with status epilepticus Status: Acute (5) Atrial fibrillation Code(s): I48.91 - Unspecified atrial fibrillation Status: Acute (6) Acute encephalopathy Code(s): G93.40 - Encephalopathy, unspecified Status: Acute - Plan Patient is on tube feed, change it to Nepro as patient has reduced GFR and accumulating potassium Potassium is 5.8 Sodium has improved Give albumin and Lasix for diuresis monitor BMP Patient remains critically ill intubated on ventilator he has edema Continue supportive care
[2018-09-22] MEDS: Albumin Human 25% Inj 100 ML IV.SIG SCH (15:55)
--- NOTE | 2018-09-22 16:23 | P.CONPAL ---
Consult Service: Palliative Care Requesting Physician: Marcie Ochoa Reason for Consult: a. To assist with evaluation and management of symptoms including: Dyspnea, encephalopathy b. To assist medical decision maker(s) with: better understanding of current medical conditions; weighing benefits/burdens of medical treatment options; making medical treatment decisions. Primary Care Provider: Gary Rivera History of Present Illness History of Present Illness: This 77-year-old male presented to the ED on 09/06/18 for reported seizure activity. Apparently upon EMS arrival patient was seizing and they administered Versed after IV access. They reported post ictal status after, respiratory compromise requiring intubation en route to the ED. At ED arrival he is having contraction of right hand possible seizure activity. Started on propofol. * CT brain noted with decreased size left frontal hematoma. No evidence of midline shift, mass lesion or acute infarction. CXR= bibasilar densities, cardiomegaly. MRI brain=1. Evolving left frontal mid convexity intra-axial hematoma measuring 2 cm with mild surrounding vasogenic edema but no significant mass effect or midline shift. 2. Otherwise, no intercurrent hemorrhage, acute infarction or hydrocephalus. * Patient was admitted to ICU. Neurology consulted: Noted with dystonic type posturing right upper extremity. Has had recent hospitalization after a traumatic intracranial frontal hemorrhage, had been on Eliquis. Was discharged on Keppra. 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 Ordered for IV Cerebyx, phenobarbital, Vimpat. Patient already on propofol consider adding Versed. MRI pending. Follow-up EEG pending. Patient at risk for embolic ischemic stroke off of anticoagulation. * EEG: Left frontal periodic lateralized epileptiform discharges * 09/08 Dilantin levels therapeutic; phenobarbital subtherapeutic, neurology increasing dosage. Unable to wean off the ventilator while requiring significant antiseizure and sedatives. * positive for C. difficile infection, known to receive Vanco and Zosyn during previous hospitalization 08/19/18, discharged on Levaquin. Started on oral vancomycin 09/09. * 09/10 neurology notes most recent EEG with some improvement, decreasing Versed dose. Decreasing IV Celebrex dose. If persists may need to seek neurosurgery consultation to evaluate if evacuation would be beneficial as it appears these are source is in that region. Remains at risk for embolic ischemic strokes. * 09/11 Neurosurgery consultation: Dr. Remy consulted; MRI requested to rule out underlying mass; hemorrhagic lesion correlates with origin of seizures on multiple EEGs. Neurosurgery discussed with critical care and neurology consideration of resection of hemorrhagic lesion and attempt to eradicate focus causing epilepsy. Neurosurgery discussed stereotactic image guided left frontal craniotomy with microsurgical resection of hemorrhagic mass with patient family as well as nonoperative management. * 09/12 underwent left frontal stereotactic guided craniotomy with microsurgical resection of hemorrhagic mass under general anesthesia. * 09/14-alertness /neuro assessment not improving. Continues to show a left PLEDs per neurology. Continues on Vimpat, Dilantin, phenobarbital. Neurology questioning if this process is a tumor, consider MRI. * 09/15 off of sedation x48 hours. Not following commands, poor neuro exam. Questionable movement right upper extremity not clear if this is posturing or withdrawal. Slight grimace to pain stimuli. Does have cough reflex. Repeat EKG pending. * 09/16 remains off sedation exam worsening no grimace to pain stimuli. EEG poor though no overt seizures. MRI repeat without new ischemic area. Antiepileptic levels are therapeutic. Local care notes discussion with neurology if no improvement by the end of the week prognosis is grim at best. This was noted to be discussed at length with family. * 09/17 remains encephalopathic possible BUN contributing to somnolence may be taking longer to clear Versed, critical care increasing hydration and attempts to normalize BUN. * 09/19 persistent comatose state off of sedatives. Follow-up EEG and antiepileptic levels per neurology. Consider palliative care consultation versus watching over the weekend course. 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 Has now been off of sedation 6 days. No movement or withdrawal or improvement in neurological assessment. Critical care having d/w family RE poor prognosis, continued aggressive tx with trach/PEG. * Nephrology consulted: For hyperkalemia, renal insufficiency: Change tube feeding to Nepro. Diuretic as needed. Sodium improving. Follow, avoid nephrotoxins. Patient with CKD stage III moderate * 09/22 infectious disease consulted for worsening leukocytosis; patient continues to be on oral vancomycin, stool volume decreasing some. Repeat blood cultures ordered, UA positive yeast , add Diflucan. Follow course, cultures. Continue oral Vanco, also start viscid p.o. Palliative care also consulted to assist with clarification of goals of medical treatment. Seen in room no visitors present. Dual visit w Maurilio Davis APRN. Non responsive to exam. No apparent discomfort. Nurse informs left for evening. Attempted to call her, no answer, VM left, also left my information w nurse. WIll attempt to meet w tomorrow morning. d/w RN, d/w critical care. Recently hospitalized 08/19/18 when found him unresponsive. He apparently fell the day before and hit his head but refused treatment, found him minimally responsive the next day. At that time he was found to have acute intraparenchymal hemorrhage. He had known history of atrial fib, Eliquis multiple failed ablations, diabetes, hypertension. He had possible seizure- like activity at that time. Condition, follow-up CTs stable during that admission. Physical therapy notes that patient previously ambulatory using rolling walker. During that admission able to ambulate to bedside chair with cues and walker in proximity. [place] to be fall risk. Would benefit from continued rehabilitation, he lacks some safety awareness. He is also noted to have sustained a fall in May of this year in which he had clavicle fracture from. Function/Cognitive Trajectory: Prior to admission 08/19 for brain injury patient was reportedly independent with ADLs. He was discharged home 08/23/18 with home health care Review of Systems unobtainable due to endotracheal tube, unobtainable due to mental status ( vented, non responsive ) Neurologic: Reports seizure-like activity PMFSH - History History Provided By: Family Member, Medical Record - Medical History Medical History: Medical History (Last Updated 09/22/18 @ 16:20 by LUCIANA Barrientos) CAD (coronary artery disease) Coronary artery disease involving coronary bypass graft Essential hypertension Hyperlipidemia MDRO (multiple drug resistant organisms) resistance Onset Date: ~09/08/18 Melanoma Mitral regurgitation Pulmonary hypertension Atrial fibrillation Diabetes Gout - Surgical History Surgical History: Surgical History (Last Updated 09/22/18 @ 16:56 by LUCIANA Barrientos) H/O craniotomy H/O right knee surgery Hx of CABG S/P ablation of atrial fibrillation S/P cataract surgery AICD (automatic cardioverter/defibrillator) present - Family History Family History: Family History (Last Updated 09/22/18 @ 16:19 by LUCIANA Barrientos) Father Myocardial infarction Other Family history non-contributory - Tobacco History Second Hand Smoke Exposure: No Smoking Status: Former smoker - Alcohol History How Often Do You Have a Drink Containing Alcohol: Monthly or less - Substance Use History Substance History: No History of Abuse - Travel History Recent Travel in the [place] Within the Last 8 Weeks: No Recent Travel Out of the Country Within the Last 8 Weeks: No - Immunization History Tetanus Immunization: Unsure Hx Influenza Vaccine This Season: Unable to Assess Medications and Allergies Active Medications: Active Medications Acetaminophen (Tylenol) 650 mg PO Q6H PRN PRN Reason: FOR FEVER >101F Last Admin: 09/11/18 19:57 Dose: 650 mg Al Hydroxide/Mg Hydroxide (Milk Of Magnbreanne Liq) 30 ml PO Q12H PRN PRN Reason: Mild Constipation Albuterol (Duoneb Neb (Prn)) 1 ampul NEB Q2HR NEB PRN PRN Reason: WHEEZING Last Admin: 09/17/18 19:45 Dose: 1 ampul Allopurinol (Zyloprim) 100 mg PO DAILY [facility] Last Admin: 09/22/18 08:23 Dose: 100 mg Bisacodyl (Dulcolax Supp) 10 mg RECTAL DAILY PRN PRN Reason: SEVERE CONSITIPATION Chlorhexidine Gluconate (Peridex 0.12% Oral Kit) 15 ml OROPHARYNG BID@0800, 2000 [facility] Last Admin: 09/22/18 08:25 Dose: 15 ml Dexamethasone Sodium Phosphate (Decadron Inj) 4 mg IV.PUSH Q6H [facility] Last Admin: 09/22/18 13:36 Dose: 4 mg Dextrose (D50w Vial) 50 ml IV.PUSH UNSCH PRN PRN Reason: PER HYPOGLYCEMIA PROTOCOL Diltiazem HCl (Cardizem Cd 24hr) 120 mg PO DAILY [facility] Last Admin: 09/07/18 12:00 Dose: Not Given Diltiazem HCl (Cardizem) 30 mg PO Q6H [facility] Last Admin: 09/22/18 13:36 Dose: 30 mg Famotidine (Pepcid Pf Inj) 20 mg IV.PUSH Q12HR [facility] Last Admin: 09/22/18 08:24 Dose: 20 mg Fidaxomicin (Dificid) 200 mg PO BID [facility] Stop: 10/01/18 21:01 Last Admin: 09/22/18 13:35 Dose: 200 mg Furosemide (Lasix Inj) 40 mg IV.PUSH BID@0900,1800 [facility] Glucagon (Glucagon Inj) 1 mg OTHER PRN PRN PRN Reason: for Hypoglycemia Protocol Heparin Sodium (Porcine) (Heparin Inj) 5,000 units SQ Q8HR [facility] Last Admin: 09/22/18 13:35 Dose: 5,000 units Lacosamide 100 mg/ Sodium (Chloride) 110 mls @ 110 mls/hr IV.SIG Q12HR [facility] Last Infusion: 09/22/18 14:30 Dose: Infused Fosphenytoin Sodium 100 mgpe/ (Sodium Chloride) 52 mls @ 216 mls/hr IV.SIG Q12HR [facility] Last Infusion: 09/22/18 10:31 Dose: Infused Sodium Chloride (Ns Inj) 1,000 mls @ 150 mls/hr IV.CONT .Q6H40M [facility] Last Admin: 09/22/18 13:06 Dose: 150 mls/hr Fluconazole (Diflucan 100 Mg Premix Bag) 50 mls @ 50 mls/hr IV.SIG Q24H [facility] Albumin Human (Flexbumin 25% Inj) 100 mls @ 60 mls/hr IV.SIG Q12H [facility] Insulin Aspart (Novolog Insulin Correctional Sugar Inj) 0 unit SQ Q6HR [facility]; Protocol Last Admin: 09/22/18 11:40 Dose: 10 unit Insulin Detemir (Levemir Inj) 22 unit SQ BID [facility] Last Admin: 09/22/18 08:24 Dose: 22 unit Lactulose (Lactulose Liq) 30 ml PO DAILY PRN PRN Reason: SEVERE CONSITIPATION Levothyroxine Sodium (Synthroid) 75 mcg PO DAILY@0600 [facility] Last Admin: 09/22/18 06:33 Dose: 75 mcg Lorazepam (Ativan Inj) 1 mg IV.PUSH Q1H PRN PRN Reason: Agitation/sedation or Seizure Last Admin: 09/07/18 04:37 Dose: 1 mg Magnesium Oxide (Mag-Ox) 400 mg PO BID [facility] Last Admin: 09/22/18 08:23 Dose: 400 mg Metolazone (Zaroxolyn) 5 mg PO DAILY [facility] Last Admin: 09/16/18 09:18 Dose: 5 mg Metoprolol Tartrate (Lopressor) 50 mg PO BID [facility] Last Admin: 09/22/18 08:23 Dose: 50 mg Miscellaneous Medication () 1 each OROPHARYNG 0000,0400,1200,1600 [facility] Last Admin: 09/22/18 12:00 Dose: 1 each Morphine Sulfate (Morphine Inj) 2 mg IV.PUSH Q2H PRN PRN Reason: PAIN SCALE 6 TO 10 Ondansetron HCl (Zofran Inj) 4 mg IV.PUSH Q6H PRN PRN Reason: NAUSEA OR VOMITING Phenobarbital Sodium (Luminal Inj) 60 mg IV.PUSH Q12HR [facility] Last Admin: 09/22/18 08:24 Dose: 60 mg Pravastatin Sodium (Pravachol) 40 mg PO HS [facility] Last Admin: 09/21/18 22:03 Dose: 40 mg Senna/Docusate Sodium (Janeen-Colace) 1 tab PO BID [facility] Last Admin: 09/22/18 08:23 Dose: 1 tab Sennosides (Senokot) 17.2 mg PO Q12H PRN PRN Reason: Moderate Constipation Sodium Chloride (Ns Flush) 2 ml IV.FLUSH BID [facility] Last Admin: 09/22/18 10:14 Dose: 2 ml Sodium Chloride (Ns Flush) 2 ml IV.FLUSH PRN PRN PRN Reason: FLUSH AFTER USING IV ACCESS Last Admin: 09/20/18 21:08 Dose: 2 ml Sterile Water (Free Water) 200 ml G-TUBE Q6HR [facility] Last Admin: 09/22/18 12:00 Dose: 200 ml Vancomycin HCl (Vancomycin Po) 250 mg PO QID [facility] Last Admin: 09/22/18 13:35 Dose: 250 mg Whey (Beneprotein Powder) 1 packet G-TUBE TID [facility] Last Admin: 09/22/18 13:35 Dose: 1 packet Allergies Allergy/AdvReac Type Severity Reaction Status Date / Time digitoxin Allergy Severe Hallucinati Verified 08/19/18 15:46 ons Home Medications Medication Instructions Recorded Confirmed Type diltiazem HCl 1 cap PO DAILY 08/19/18 08/19/18 History magnesium oxide 400 mg PO BID 08/19/18 08/19/18 History metolazone 5 mg PO DAILY 08/19/18 08/19/18 History metoprolol tartrate 50 mg PO BID 08/19/18 08/19/18 History potassium chloride 1 tab PO BID 08/19/18 08/19/18 History simvastatin 20 mg PO QPM 08/19/18 08/19/18 History Advance Directives Ethical and Legal Issues: Pt unable to participate in decision making, not clear he will regain ability. Per [place] statutes would be approp legal proxy. May have advanced directives/ HCS. Reported may have early dementia process. Unless she is deemed incapacitated, might recommend shared decision making with her and other family members. Physical Exam Vital Signs: Vital Signs - 24 hr 09/21/18 16:00 09/21/18 17:00 09/21/18 18:00 Temperature 97.8 F Pulse Rate 89 80 93 H Respiratory Rate 19 Blood Pressure 115/63 101/59 L 107/72 Pulse Oximetry 99 100 99 09/21/18 19:00 09/21/18 20:00 09/21/18 20:43 Temperature 97.7 F Pulse Rate 92 H 98 H Respiratory Rate 15 17 Blood Pressure 108/68 100/67 Pulse Oximetry 98 98 98 09/21/18 21:00 09/21/18 22:00 09/21/18 23:00 Temperature Pulse Rate 97 H 91 H 89 Respiratory Rate Blood Pressure 102/63 100/57 L 99/62 L Pulse Oximetry 98 99 99 09/21/18 23:46 09/22/18 00:00 09/22/18 01:00 Temperature Pulse Rate 89 90 Respiratory Rate 15 Blood Pressure 92/55 L 101/63 Pulse Oximetry 99 99 99 09/22/18 02:00 09/22/18 02:15 09/22/18 02:30 Temperature Pulse Rate 88 85 84 Respiratory Rate Blood Pressure 103/64 Pulse Oximetry 100 100 99 09/22/18 02:48 09/22/18 04:00 09/22/18 04:51 Temperature 97.4 F L Pulse Rate 67 88 Respiratory Rate 26 H 15 Blood Pressure 102/52 L 100/65 Pulse Oximetry 99 99 100 09/22/18 06:00 09/22/18 08:58 09/22/18 14:05 Temperature Pulse Rate 88 Respiratory Rate 18 16 Blood Pressure Pulse Oximetry 99 100 I&O: Intake & Output 09/20/18 09/21/18 09/22/18 09/23/18 07:59 06:59 06:59 06:59 Intake Total 6414.825 / 6414.825 462 / 462 Output Total 1880 / 1880 Balance 4534.825 / 4534.825 462 / 462 Weight 117.7 kg Physical Exam: CONSTITUTIONAL/GENERAL: This is an adequately nourished patient, nonresponsive to exam TUBES/LINES/DRAINS: Peripheral iv bilateral upper extremity, Fields catheter, rectal drainage, ET tube, OG tube, soft restraints bilaterally SKIN: No jaundice, rashes, or lesions. No wounds seen anteriorly. Well-healed midline abdominal scar. Well-healed sternal scar. Well-healed right knee scar few scattered ecchymosis and skin tears bilateral arms. Some serous drainage from arms. Skin temperature warm and dry. HEAD: Atraumatic. Normocephalic. EYES: Pupils equal and round and reactive, slightly sluggish, 3 mm. Does not blink to threat. ?able corneal. No scleral icterus. No injection or drainage. Fundi not examined. ENT: Nose without bleeding or purulent drainage. limited oropharynx exam secondary to tubes, no evident lesions or exudates. NECK: Trachea midline. Supple, nontender. CARDIOVASCULAR: Irregular heart rate. Heart sounds difficult to auscultate over breath sounds. Peripheral pulses faintly palpable. Significant peripheral edema. RESPIRATORY/CHEST: Symmetric, unlabored respirations via ET tube to mechanical vent. Coarse rhonchi throughout. Breath sounds equal bilaterally. GASTROINTESTINAL: Abdomen soft, obese, unable to determine tenderness, nondistended. No hepato-splenomegaly, or palpable masses. Bowel sounds hypoactive. GENITOURINARY: Without palpable bladder distension. Fields catheter in place.+ Scrotal edema. MUSCULOSKELETAL: Extremities without clubbing, cyanosis. No joint effusion noted. 2+ edema all 4 extremities. LYMPHATICS: No palpable cervical or supraclavicular adenopathy. NEUROLOGICAL: not on sedation. No eye opening. Slight/sluggish pupillary response. No withdrawal to pain. Very weak/slight gag reflex with ET tube stimuli. PSYCHIATRIC: Limited assessment secondary to clinical condition no evident distress Diagnostic Tests Laboratory: Laboratory Results - last 72 hr 09/19/18 09/20/18 09/20/18 17:36 02:31 03:40 WBC RBC Hgb Hct MCV MCH MCHC RDW Plt Count MPV Sodium 148 H Potassium 5.2 H Chloride 115 H Carbon Dioxide 25.4 Anion Gap 8 BUN 120 H Creatinine 1.34 H Estimated GFR 52 L POC Glucose 241 H 246 H Random Glucose 232 H Calcium 8.6 Phosphorus 3.5 Magnesium 2.9 H Urine Color Urine Clarity Urine pH Ur Specific [place] Urine Protein Urine Glucose (UA) Urine Ketones Urine Occult Blood Urine Nitrate Urine Bilirubin Urine Urobilinogen Ur Leukocyte Esterase Urine RBC Urine WBC Ur Squamous Epith Cells Urine Bacteria Urine Mucus Urine Yeast Micro UA Comment Ur Microscopic Review Urine Culture Comments Phenytoin 16.5 Phenobarbital 29.5 09/20/18 09/20/18 09/21/18 03:40 17:36 01:16 EST WBC 19.8 H RBC 3.01 L Hgb 10.4 L Hct 32.3 L MCV 107.2 H MCH 34.5 H MCHC 32.2 RDW 17.4 H Plt Count 186 MPV 9.8 Sodium Potassium Chloride Carbon Dioxide Anion Gap BUN Creatinine Estimated GFR POC Glucose 230 H 270 H Random Glucose Calcium Phosphorus Magnesium Urine Color Urine Clarity Urine pH Ur Specific [place] Urine Protein Urine Glucose (UA) Urine Ketones Urine Occult Blood Urine Nitrate Urine Bilirubin Urine Urobilinogen Ur Leukocyte Esterase Urine RBC Urine WBC Ur Squamous Epith Cells Urine Bacteria Urine Mucus Urine Yeast Micro UA Comment Ur Microscopic Review Urine Culture Comments Phenytoin Phenobarbital 09/21/18 09/21/18 09/21/18 03:21 03:21 11:34 WBC 24.7 H RBC 2.59 L Hgb 9.0 L Hct 28.2 L MCV 108.6 H MCH 34.8 H MCHC 32.1 RDW 17.5 H Plt Count 193 MPV 10.1 Sodium 144 Potassium 5.8 H Chloride 111 H Carbon Dioxide 24.2 Anion Gap 9 BUN 141 H Creatinine 1.31 H Estimated GFR 53 L POC Glucose 359 H Random Glucose 267 H Calcium 7.9 L Phosphorus 4.0 Magnesium 2.7 H Urine Color Urine Clarity Urine pH Ur Specific [place] Urine Protein Urine Glucose (UA) Urine Ketones Urine Occult Blood Urine Nitrate Urine Bilirubin Urine Urobilinogen Ur Leukocyte Esterase Urine RBC Urine WBC Ur Squamous Epith Cells Urine Bacteria Urine Mucus Urine Yeast Micro UA Comment Ur Microscopic Review Urine Culture Comments Phenytoin 14.5 Phenobarbital 30.2 09/21/18 09/21/18 09/22/18 12:10 17:27 04:37 WBC RBC Hgb Hct MCV MCH MCHC RDW Plt Count MPV Sodium 139 Potassium 5.8 H Chloride 106 Carbon Dioxide 21.2 Anion Gap 12 BUN 153 H Creatinine 1.53 H Estimated GFR 44 L POC Glucose 260 H Random Glucose 207 H Calcium 7.7 L Phosphorus 4.8 Magnesium 2.7 H Urine Color Yellow Urine Clarity Hazy H Urine pH 5.0 Ur Specific [place] 1.015 Urine Protein Negative Urine Glucose (UA) Negative Urine Ketones Negative Urine Occult Blood Large H Urine Nitrate Negative Urine Bilirubin Negative Urine Urobilinogen Less than 2 Ur Leukocyte Esterase Negative Urine RBC Less than 1 Urine WBC 3 Ur Squamous Epith Cells <1 Urine Bacteria Occasional H Urine Mucus Few H Urine Yeast Moderate H Micro UA Comment Cath-culture ind Ur Microscopic Review Not Reportable Urine Culture Comments Cath-cult indicated Phenytoin 16.4 Phenobarbital 29.4 09/22/18 09/22/18 09/22/18 04:37 06:46 11:19 WBC 27.9 H RBC 2.22 L Hgb 7.8 L Hct 23.9 L MCV 107.4 H MCH 35.3 H MCHC 32.8 RDW 17.0 Plt Count 199 MPV 9.9 Sodium Potassium Chloride Carbon Dioxide Anion Gap BUN Creatinine Estimated GFR POC Glucose 284 H 245 H Random Glucose Calcium Phosphorus Magnesium Urine Color Urine Clarity Urine pH Ur Specific [place] Urine Protein Urine Glucose (UA) Urine Ketones Urine Occult Blood Urine Nitrate Urine Bilirubin Urine Urobilinogen Ur Leukocyte Esterase Urine RBC Urine WBC Ur Squamous Epith Cells Urine Bacteria Urine Mucus Urine Yeast Micro UA Comment Ur Microscopic Review Urine Culture Comments Phenytoin Phenobarbital 09/22/18 13:26 WBC RBC Hgb 7.7 L Hct 24.3 L MCV MCH MCHC RDW Plt Count MPV Sodium Potassium Chloride Carbon Dioxide Anion Gap BUN Creatinine Estimated GFR POC Glucose Random Glucose Calcium Phosphorus Magnesium Urine Color Urine Clarity Urine pH Ur Specific [place] Urine Protein Urine Glucose (UA) Urine Ketones Urine Occult Blood Urine Nitrate Urine Bilirubin Urine Urobilinogen Ur Leukocyte Esterase Urine RBC Urine WBC Ur Squamous Epith Cells Urine Bacteria Urine Mucus Urine Yeast Micro UA Comment Ur Microscopic Review Urine Culture Comments Phenytoin Phenobarbital Result Diagrams: 09/22/18 13:26 09/22/18 04:37 Microbiology: Microbiology 09/21/18 12:10 Urine Culture - Preliminary Catheterized Urine Yeast - ID to follow Patient/Family Conference Issues Discussed: , possible family meeting 09/23/18 a.m. * Assessment and Plan - Disease Oriented Problem List (1) Localization-related (focal) (partial) symptomatic epilepsy and epileptic syndromes with complex partial seizures, intractable, with status epilepticus (2) Atrial fibrillation (3) Acute encephalopathy (4) Hyperkalemia (5) Chronic kidney disease (CKD) stage G3a/A1, moderately decreased glomerular filtration rate (GFR) between 45-59 mL/min/1.73 square meter and albuminuria creatinine ratio less than 30 mg/g (6) C. difficile diarrhea (7) Status post craniotomy (8) Mitral valve regurgitation (9) Pulmonary hypertension (10) Acute respiratory failure with hypoxemia (11) Diabetes - Symptom Scale (1) Dyspnea 0-10 Scale: Unable to quantify (2) Encephalopathy 0-10 Scale: Unable to quantify (3) Seizure 0-10 Scale: Unable to quantify Pertinent Non-Medical Issues: Psychosocial: . Has adult children Spiritual: Legal:Pt unable to participate in decision making, not clear he will regain ability. Per [place] statutes would be approp legal proxy. May have advanced directives/HCS. Reported may have early dementia process. Unless she is deemed incapacitated, might recommend shared decision making with her and other family members Ethical issues impacting care: no ethical issues identified Important Contacts: Ludy Moise [phone] Grandson Ru [phone] . Prognosis: Admitted for seizure activity. Continue to have refractory seizure activity despite antiepileptics. Status post resection per neurosurgery. Neurological status not improving despite multiple interventions. Given very poor neuro status and assessments thus far if does not make significant improvement overall prognosis for meaningful recovery appears poor. Code Status: Full Code Plan: Legal decision maker:Pt unable to participate in decision making, not clear he will regain ability. Per [place] statutes would be approp legal proxy. May have advanced directives/HCS. Reported may have early dementia process. Unless she is deemed incapacitated, might recommend shared decision making with her and other family members Goals:TBD, pending family meeting w , other family members. Plan to follow up 09/23/18 am CODE STATUS:full code SYMPTOMS: --dyspnea= intubated. Currently breathing comfortable on mech vent no sedation. Unable to medically wean 2/2 neuro status, seizures. -- seizures= hx of fall, SDH, this admit presents w seizure activity. Requiring multiple anti-epileptics per neuro, still w sz activity. s/p resection per neurosurgery, PATH pending. --pain- potential sources would include bedbound status, recent brain surgery. currently minimal responsive to any pain stimuli; any sedating agents held for neuro assessments. -- encephalopathy- hx of fall, SDH, this admit presents w seizure activity. Requiring multiple anti-epileptics per neuro, still w sz activity. s/p resection per neurosurgery, PATH pending. + renal failure, may be compounding encephalopathy?, may require Hemodialysis? Palliative care will continue to follow during hospital course as condition evolves, to assist patient/decision-maker with understanding of medical conditions, weighing benefits/burdens of treatment options, for clarification of goals of treatment. Additionally will assist with any symptoms of palliative concern Appreciation Thank you for the opportunity to participate in the care of Seymour Moise. Attestation Attestation: To help prompt me to consider important information that might be impacting today's encounter and assessment, information from prior notes written by myself or my colleagues may have been "brought forward" into today's note. My signature on this note, however, is an attestation that I personally performed the exam, history, and/or decision-making noted today, and, unless otherwise indicated, the interactions with patient, family, and staff as well as the review of records all occurred today. I also attest that the listed assessment and stated plan reflect my best clinical judgment today based on the combination of historical information, prior notes, and today's exam/ interactions. When time spent is documented, it refers only to time spent today by the signer, or if indicated, combined time spent today by collaborating physician/nurse practitioner.
[2018-09-22] MEDS ORDERED: Sodium Bicarbonate 8.4% Inj 50 MEQ/50 ML Syringe IV.PUSH ONE (19:00)
[2018-09-22] MEDS ORDERED: Sodium Polystyrene Sulfonate/Sorbitol Liq 15 GM/60 ML UDC PO ONE (19:00)
[2018-09-23] MEDS: Insulin NovoLOG Aspart Correctional Sugar Inj SQ SCH ×4 (00:15→18:31)
[2018-09-23] MEDS: Oral Hygiene Kit OROPHARYNG SCH ×4 (00:16→18:29)
[2018-09-23] MEDS: dilTIAZem 30 MG Tablet PO SCH ×4 (01:02→20:43)
[2018-09-23] MEDS: Albumin Human 25% Inj 100 ML IV.SIG SCH ×2 (03:12→14:08)
[2018-09-23 04:46] LABS: Albumin/Creatinine Ratio 77 mg/g (<17)
--- NOTE | 2018-09-23 05:18 | XR ---
EXAM DATE: 09/23/2018 4:36 AM EST AGE/SEX: 77 years / Male INDICATIONS: Shortness of breath, possible respiratory disease. CLINICAL DATA: This is the patient's subsequent encounter. Patient reports that signs and symptoms h ave been present for 2 weeks and indicates a pain score of Nonresponsive. MEDICAL/SURGICAL HISTORY: Hypertension. A. Fib. CAD.DiabetesMitral regurgitation. CABG. Crani otomy. Pacemaker. Ablation COMPARISON: [facility], CHEST 1V SINGLE AP, 09/20/2018. . FINDINGS: Endotracheal tube tip is just above the jose antonio. Nasogastric tube descends to the stomach. A pacing im plement is present with control pack over left upper chest. There has been slight worsening in hazy b ilateral pleural parenchymal opacities. Cardiac contours are grossly unchanged. CONCLUSION: Some interval worsening in aeration Electronically signed by: Don Pimentel MD 09/23/2018 5:16 AM EST
[2018-09-23] MEDS: Levothyroxine 75 MCG Tablet PO SCH (05:38)
[2018-09-23] MEDS: Heparin - SQ 10,000 UNITS/ML Vial SQ SCH ×3 (05:39→21:22)
--- NOTE | 2018-09-23 08:21 | P.PNNEU ---
Subjective Subjective Comments: No acute events Active Medications: Active Medications Acetaminophen (Tylenol) 650 mg PO Q6H PRN PRN Reason: FOR FEVER >101F Last Admin: 09/11/18 19:57 Dose: 650 mg Al Hydroxide/Mg Hydroxide (Milk Of Magnbreanne Liq) 30 ml PO Q12H PRN PRN Reason: Mild Constipation Albuterol (Duoneb Neb (Prn)) 1 ampul NEB Q2HR NEB PRN PRN Reason: WHEEZING Last Admin: 09/17/18 19:45 Dose: 1 ampul Allopurinol (Zyloprim) 100 mg PO DAILY [facility] Last Admin: 09/22/18 08:23 Dose: 100 mg Bisacodyl (Dulcolax Supp) 10 mg RECTAL DAILY PRN PRN Reason: SEVERE CONSITIPATION Chlorhexidine Gluconate (Peridex 0.12% Oral Kit) 15 ml OROPHARYNG BID@0800, 2000 [facility] Last Admin: 09/22/18 21:30 Dose: 15 ml Dexamethasone Sodium Phosphate (Decadron Inj) 4 mg IV.PUSH Q6H [facility] Last Admin: 09/23/18 01:04 Dose: 4 mg Dextrose (D50w Vial) 50 ml IV.PUSH UNSCH PRN PRN Reason: PER HYPOGLYCEMIA PROTOCOL Diltiazem HCl (Cardizem Cd 24hr) 120 mg PO DAILY [facility] Last Admin: 09/07/18 12:00 Dose: Not Given Diltiazem HCl (Cardizem) 30 mg PO Q6H [facility] Last Admin: 09/23/18 01:02 Dose: 30 mg Famotidine (Pepcid Pf Inj) 20 mg IV.PUSH Q12HR [facility] Last Admin: 09/22/18 20:23 Dose: 20 mg Fidaxomicin (Dificid) 200 mg PO BID [facility] Stop: 10/01/18 21:01 Last Admin: 09/22/18 20:24 Dose: 200 mg Furosemide (Lasix Inj) 40 mg IV.PUSH BID@0900,1800 [facility] Last Admin: 09/22/18 17:44 Dose: 40 mg Glucagon (Glucagon Inj) 1 mg OTHER PRN PRN PRN Reason: for Hypoglycemia Protocol Heparin Sodium (Porcine) (Heparin Inj) 5,000 units SQ Q8HR [facility] Last Admin: 09/23/18 05:39 Dose: 5,000 units Lacosamide 100 mg/ Sodium (Chloride) 110 mls @ 110 mls/hr IV.SIG Q12HR [facility] Last Infusion: 09/22/18 22:30 Dose: Infused Fosphenytoin Sodium 100 mgpe/ (Sodium Chloride) 52 mls @ 216 mls/hr IV.SIG Q12HR [facility] Last Infusion: 09/22/18 20:40 Dose: Infused Sodium Chloride (Ns Inj) 1,000 mls @ 150 mls/hr IV.CONT .Q6H40M [facility] Last Admin: 09/22/18 22:50 Dose: 150 mls/hr Fluconazole (Diflucan 100 Mg Premix Bag) 50 mls @ 50 mls/hr IV.SIG Q24H [facility] Last Infusion: 09/22/18 17:00 Dose: Infused Albumin Human (Flexbumin 25% Inj) 100 mls @ 60 mls/hr IV.SIG Q12H [facility] Last Infusion: 09/23/18 03:12 Dose: Infused Insulin Aspart (Novolog Insulin Correctional Sugar Inj) 0 unit SQ Q6HR [facility]; Protocol Last Admin: 09/23/18 05:39 Dose: 10 unit Insulin Detemir (Levemir Inj) 22 unit SQ BID [facility] Last Admin: 09/22/18 21:29 Dose: 22 unit Lactulose (Lactulose Liq) 30 ml PO DAILY PRN PRN Reason: SEVERE CONSITIPATION Levothyroxine Sodium (Synthroid) 75 mcg PO DAILY@0600 [facility] Last Admin: 09/23/18 05:38 Dose: 75 mcg Lorazepam (Ativan Inj) 1 mg IV.PUSH Q1H PRN PRN Reason: Agitation/sedation or Seizure Last Admin: 09/07/18 04:37 Dose: 1 mg Magnesium Oxide (Mag-Ox) 400 mg PO BID [facility] Last Admin: 09/22/18 20:24 Dose: 400 mg Metolazone (Zaroxolyn) 5 mg PO DAILY [facility] Last Admin: 09/16/18 09:18 Dose: 5 mg Metoprolol Tartrate (Lopressor) 50 mg PO BID [facility] Last Admin: 09/22/18 20:24 Dose: 50 mg Miscellaneous Medication () 1 each OROPHARYNG 0000,0400,1200,1600 [facility] Last Admin: 09/23/18 03:12 Dose: 1 each Morphine Sulfate (Morphine Inj) 2 mg IV.PUSH Q2H PRN PRN Reason: PAIN SCALE 6 TO 10 Ondansetron HCl (Zofran Inj) 4 mg IV.PUSH Q6H PRN PRN Reason: NAUSEA OR VOMITING Phenobarbital Sodium (Luminal Inj) 60 mg IV.PUSH Q12HR [facility] Last Admin: 09/22/18 20:23 Dose: 60 mg Pravastatin Sodium (Pravachol) 40 mg PO HS [facility] Last Admin: 09/22/18 20:24 Dose: 40 mg Senna/Docusate Sodium (Janeen-Colace) 1 tab PO BID [facility] Last Admin: 09/22/18 20:26 Dose: Not Given Sennosides (Senokot) 17.2 mg PO Q12H PRN PRN Reason: Moderate Constipation Sodium Chloride (Ns Flush) 2 ml IV.FLUSH BID [facility] Last Admin: 09/22/18 20:26 Dose: 2 ml Sodium Chloride (Ns Flush) 2 ml IV.FLUSH PRN PRN PRN Reason: FLUSH AFTER USING IV ACCESS Last Admin: 09/22/18 20:25 Dose: 2 ml Sterile Water (Free Water) 200 ml G-TUBE Q6HR [facility] Last Admin: 09/23/18 05:39 Dose: 200 ml Vancomycin HCl (Vancomycin Po) 250 mg PO QID [facility] Last Admin: 09/22/18 20:22 Dose: 250 mg Whey (Beneprotein Powder) 1 packet G-TUBE TID [facility] Last Admin: 09/22/18 17:47 Dose: 1 packet Allergies/Adverse Reactions: Allergies Allergy/AdvReac Type Severity Reaction Status Date / Time digitoxin Allergy Severe Hallucinati Verified 08/19/18 15:46 ons Review of Systems unobtainable due to endotracheal tube, unobtainable due to mental status Physical Exam Vital signs: Vital Signs 09/22/18 08:58 09/22/18 09:00 09/22/18 09:45 Temperature Pulse Rate 88 80 Respiratory Rate 18 Blood Pressure 97/60 L Pulse Oximetry 99 100 100 09/22/18 10:00 09/22/18 10:15 09/22/18 10:30 Temperature Pulse Rate 78 89 79 Respiratory Rate Blood Pressure 99/63 L Pulse Oximetry 100 100 100 09/22/18 10:45 09/22/18 11:00 09/22/18 11:15 Temperature Pulse Rate 83 87 90 Respiratory Rate Blood Pressure 103/66 Pulse Oximetry 100 100 97 09/22/18 11:30 09/22/18 11:45 09/22/18 12:00 Temperature 98.0 F Pulse Rate 87 87 86 Respiratory Rate 12 Blood Pressure 100/59 L Pulse Oximetry 100 97 100 09/22/18 12:15 09/22/18 12:30 09/22/18 12:45 Temperature Pulse Rate 80 70 82 Respiratory Rate 15 10 L 15 Blood Pressure Pulse Oximetry 100 100 100 09/22/18 13:00 09/22/18 13:15 09/22/18 13:30 Temperature Pulse Rate 87 87 88 Respiratory Rate 3 L 15 14 Blood Pressure 97/59 L Pulse Oximetry 100 100 100 09/22/18 13:45 09/22/18 14:00 09/22/18 14:05 Temperature Pulse Rate 88 91 H Respiratory Rate 15 15 16 Blood Pressure 98/63 L Pulse Oximetry 100 100 100 09/22/18 14:15 09/22/18 14:30 09/22/18 14:45 Temperature Pulse Rate 81 72 85 Respiratory Rate 13 14 17 Blood Pressure Pulse Oximetry 100 100 100 09/22/18 15:00 09/22/18 15:15 09/22/18 15:30 Temperature Pulse Rate 86 86 87 Respiratory Rate 14 13 14 Blood Pressure 96/60 L Pulse Oximetry 100 100 100 09/22/18 15:45 09/22/18 16:00 09/22/18 16:15 Temperature 97.6 F Pulse Rate 86 72 74 Respiratory Rate 14 16 15 Blood Pressure 101/59 L Pulse Oximetry 100 100 100 09/22/18 16:23 09/22/18 16:30 09/22/18 16:45 Temperature Pulse Rate 75 76 Respiratory Rate 16 14 14 Blood Pressure Pulse Oximetry 100 100 100 09/22/18 17:00 09/22/18 17:15 09/22/18 17:30 Temperature Pulse Rate 72 73 73 Respiratory Rate 13 14 14 Blood Pressure 94/64 L Pulse Oximetry 100 100 100 09/22/18 17:45 09/22/18 18:00 09/22/18 18:15 Temperature Pulse Rate 73 76 82 Respiratory Rate 14 15 15 Blood Pressure 101/67 Pulse Oximetry 100 100 100 09/22/18 18:30 09/22/18 18:45 09/22/18 19:00 Temperature Pulse Rate 76 81 80 Respiratory Rate 15 15 18 Blood Pressure 111/58 L Pulse Oximetry 100 100 100 09/22/18 19:15 09/22/18 19:30 09/22/18 19:45 Temperature Pulse Rate 86 89 89 Respiratory Rate 19 15 15 Blood Pressure Pulse Oximetry 100 100 100 09/22/18 20:00 09/22/18 20:26 09/22/18 20:30 Temperature 98.8 F Pulse Rate 90 89 Respiratory Rate 15 15 4 L Blood Pressure 96/55 L Pulse Oximetry 100 100 100 09/22/18 20:45 09/22/18 21:00 09/22/18 22:00 Temperature Pulse Rate 90 90 87 Respiratory Rate 11 L 16 14 Blood Pressure 113/66 102/59 L Pulse Oximetry 100 100 100 09/22/18 23:00 09/22/18 23:30 09/22/18 23:45 Temperature Pulse Rate 88 88 89 Respiratory Rate 13 13 13 Blood Pressure 101/59 L Pulse Oximetry 100 100 100 09/23/18 00:00 09/23/18 00:10 09/23/18 01:00 Temperature 97.3 F L Pulse Rate 88 89 Respiratory Rate 14 17 13 Blood Pressure 108/65 94/56 L Pulse Oximetry 100 100 100 09/23/18 01:15 09/23/18 02:00 09/23/18 03:00 Temperature Pulse Rate 89 89 85 Respiratory Rate 17 14 16 Blood Pressure 102/63 102/66 Pulse Oximetry 100 100 100 09/23/18 03:15 09/23/18 04:00 09/23/18 04:15 Temperature 98.3 F Pulse Rate 85 90 91 H Respiratory Rate 16 14 18 Blood Pressure 105/60 Pulse Oximetry 100 100 100 09/23/18 04:30 09/23/18 05:00 09/23/18 05:30 Temperature Pulse Rate 91 H 91 H 91 H Respiratory Rate 13 13 13 Blood Pressure 93/53 L Pulse Oximetry 100 100 100 09/23/18 05:45 09/23/18 06:00 Temperature Pulse Rate 90 90 Respiratory Rate 13 13 Blood Pressure 94/53 L Pulse Oximetry 100 100 Intake & Output 09/22/18 09/23/18 09/23/18 18:59 06:59 18:59 Intake Total 1999 1686 / 1686 Output Total 1100 / 1100 1450 / 1450 Balance 900 / 900 236 / 236 Weight 119.2 kg Intake: IV 612 / 612 1262 / 1262 NS Inj 1,000 ML @ 150 mls/hr IV 1000 / 1000 .CONT .Q6H40M [facility] Rx#:[id number] Sodium Chloride 23.4% Inj 38.5 300 / 300 MEQ In Sterile Water for Inj 1, 000 ML @ 150 mls/hr IV.CONT . Q6H44M [facility] Rx#:[id number] Flexbumin 25% Inj 100 ML @ 60 100 / 100 100 / 100 mls/hr IV.SIG Q12H [facility] Rx#: [id number] Diflucan 100 mg Premix Bag 50 50 / 50 ML @ 50 mls/hr IV.SIG Q24H [facility] Rx#:[id number] Cerebyx Inj 100 MGPE In NS Inj 52 / 52 52 / 52 50 ML @ 216 mls/hr IV.SIG Q12HR [facility] Rx#:[id number] Vimpat Inj 100 MG In NS Inj 100 110 / 110 110 / 110 ML @ 110 mls/hr IV.SIG Q12HR [facility] Rx#:[id number] Tube Feeding 538 / 538 424 / 424 Tube Irrigant 450 / 450 Water Bolus Amount 400 / 400 Output: Stool 300 / 300 400 / 400 Urine Amount (Catheter) 800 / 800 1050 / 1050 Indwelling Temp Sensing 800 / 800 1050 / 1050 Catheter Other: Date of Last Bowel Movement 09/22/18 09/23/18 Narrative: GENERAL: in NAD, SKIN: Warm and dry. HEAD: Atraumatic. Normocephalic. EYES: Sluggishly reactive ENT: Intubated NECK: Intubated CARDIOVASCULAR: Regular rate and rhythm. RESPIRATORY: Intubated GASTROINTESTINAL: Abdomen soft, non-tender, nondistended. MUSCULOSKELETAL: No obvious deformities. Bilateral lower extremity edema NEUROLOGICAL: Intubated, coma state nonverbal not following, grimace to deep tactile, OU 3/2 mm sluggishly reactive no gaze deviation, has corneal reflex OU , no localization PSYCHIATRIC: Intubated, calm - Constitutional no acute distress - Routine HEENT Exam Head: Present: normocephalic - Urinary Catheter Management Indwelling Urethral Catheter Cath placed during this visit: yes, but has since been removed by the nurse Reason for continuing: Decision to DC catheter Insertion date: 09/06/18 Insertion time: 23:00 Removal date: 09/08/18 Removal time: 18:21 Straight Cath placed during this visit: yes, but has since been removed by the nurse Reason for continuing: Decision to DC catheter Insertion date: 09/09/18 Insertion time: 02:20 Removal date: 09/10/18 Removal time: 12:00 Indwelling Temp Sensing Catheter Cath placed during this visit: yes Reason for continuing: Acute urinary retention Insertion date: 09/12/18 Insertion time: 15:30 Objective Laboratory Results - last 24 hr 09/21/18 09/22/18 09/22/18 12:10 11:19 13:26 Hgb 7.7 L Hct 24.3 L POC Glucose 245 H Ur Microalbumin mg/L 28 U Creat (Microalbumin) 37.0 Microalb/Creat Ratio 77 H 09/22/18 09/22/18 09/22/18 17:52 17:55 23:48 Hgb Hct POC Glucose 294 H 271 H 273 H Ur Microalbumin mg/L U Creat (Microalbumin) Microalb/Creat Ratio 09/23/18 05:29 Hgb Hct POC Glucose 241 H Ur Microalbumin mg/L U Creat (Microalbumin) Microalb/Creat Ratio Microbiology 09/21/18 12:10 Urine Culture - Preliminary Catheterized Urine Yeast - ID to follow Review/Management - Diagnosis (1) Localization-related (focal) (partial) symptomatic epilepsy and epileptic syndromes with complex partial seizures, intractable, with status epilepticus Code(s): G40.211 - Localization-related (focal) (partial) symptomatic epilepsy and epileptic syndromes with complex partial seizures, intractable, with status epilepticus Status: Acute Current Visit: Yes (2) Atrial fibrillation Code(s): I48.91 - Unspecified atrial fibrillation Status: Acute Current Visit: Yes (3) Acute encephalopathy Code(s): G93.40 - Encephalopathy, unspecified Status: Acute Current Visit: Yes (4) ICH (intracerebral hemorrhage) Code(s): I61.9 - Nontraumatic intracerebral hemorrhage, unspecified Status: Acute Current Visit: No - Review/Management Plan: Persistent comatose state. Off Versed MRI brain scan shows evacuation of left frontal hemorrhage perilesional edema There does appear to be increased signal bihemispheric sulcal regions on FLAIR imaging; this was not seen on his previous MRI scan. possibly related to fluid shifts, metabolic, seizure, infectious Progressive hypernatremia and increasing BUN and creatinine level. 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 for further opinion Appreciate palliative care evaluation (4) ICH (intracerebral hemorrhage) Qualifiers: Intracerebral hemorrhage etiology: traumatic Encounter type: initial encounter Laterality: left Loss of consciousness presence/duration: with LOC of unspecified duration Qualified Code(s): S06.359A - Traumatic hemorrhage of left cerebrum with loss of consciousness of unspecified duration, initial encounter
[2018-09-23] MEDS: Allopurinol 100 MG Tablet PO SCH (08:25)
[2018-09-23] MEDS: Beneprotein Powder Packet G-TUBE SCH ×3 (08:25→18:31)
[2018-09-23] MEDS: Metoprolol Tartrate 50 MG Tablet PO SCH ×2 (08:25→20:43)
[2018-09-23] MEDS: Famotidine PF Inj 20 MG/2 ML Vial IV.PUSH SCH ×2 (08:27→20:44)
[2018-09-23] MEDS: PHENobarbital Inj 130 MG/ML Vial IV.PUSH SCH ×2 (08:27→20:40)
[2018-09-23] MEDS: Senna/Docusate Sodium 8.6/50 MG Tablet PO SCH ×2 (08:27→20:43)
[2018-09-23] MEDS: Magnesium Oxide 400 MG Tablet PO SCH ×2 (08:27→20:42)
[2018-09-23] MEDS: Chlorhexidine 0.12% Oral Kit 15 ML UDC OROPHARYNG SCH (08:28)
[2018-09-23] MEDS: Fosphenytoin Inj 100 MGPE in Sodium Chlor 0.9% Inj 50 ML IV.SIG SCH ×2 (08:28→20:38)
[2018-09-23] MEDS: Insulin Detemir Inj 1,000 UNIT/10 ML Vial SQ SCH (08:30)
[2018-09-23] MEDS: Lacosamide Inj 100 MG in Sodium Chlor 0.9% Inj 100 ML IV.SIG SCH ×2 (09:00→20:36)
[2018-09-23 09:28] LABS: Albumin 2.3 g/dL (3.4-5.0); Anion Gap 12 meq/L (5-15); Aspartate Aminotransferase 20 U/L (15-37); Blood Urea Nitrogen 148 mg/dL (7-18); Calcium 7.8 mg/dL (8.5-10.1); Carbon Dioxide 21.8 meq/L (21.0-32.0); Chloride 107 meq/L (98-107); Glomerular Filtration Rate 46 mL/min (>89); Glucose,Random 281 mg/dL (74-106); Magnesium 2.6 mg/dL (1.5-2.5); Potassium 5.2 meq/L (3.5-5.1); Sodium 141 meq/L (136-145)
[2018-09-23 09:30] LABS: Alanine Aminotransferase 12 U/L (12-78)
[2018-09-23 09:32] LABS: Alkaline Phosphatase 94 U/L (45-117); Phenytoin (Dilantin) 14.2 mcg/mL (10.0-20.0); Total Protein 5.6 g/dL (6.4-8.2)
[2018-09-23 10:13] LABS: Hematocrit 24.4 % (39.0-51.0); Hemoglobin 7.5 gm/dL (13.0-17.0); Mean Corpuscular Hemoglobin 35.2 pg (27.0-34.0); Mean Corpuscular Volume 113.9 fL (80.0-100.0); Mean Platelet Volume 8.9 fL (7.0-11.0); Platelet Count 201 th/mm3 (150-450); Red Blood Count 2.14 mil/mm3 (4.50-5.90); Red Cell Distribution Width 18.6 % (11.6-17.2); White Blood Count 28.1 th/mm3 (4.0-11.0)
[2018-09-23 10:14] LABS: Mean Corpuscular HGB Conc 30.9 % (32.0-36.0)
--- NOTE | 2018-09-23 11:40 | P.PNNP ---
Subjective Interval history: No changes noted remains critically ill Physical Exam Vital signs: Vital Signs 09/22/18 11:45 09/22/18 12:00 09/22/18 12:15 Temperature 98.0 F Pulse Rate 87 86 80 Respiratory Rate 12 15 Blood Pressure 100/59 L Pulse Oximetry 97 100 100 09/22/18 12:30 09/22/18 12:45 09/22/18 13:00 Temperature Pulse Rate 70 82 87 Respiratory Rate 10 L 15 3 L Blood Pressure 97/59 L Pulse Oximetry 100 100 100 09/22/18 13:15 09/22/18 13:30 09/22/18 13:45 Temperature Pulse Rate 87 88 88 Respiratory Rate 15 14 15 Blood Pressure Pulse Oximetry 100 100 100 09/22/18 14:00 09/22/18 14:05 09/22/18 14:15 Temperature Pulse Rate 91 H 81 Respiratory Rate 15 16 13 Blood Pressure 98/63 L Pulse Oximetry 100 100 100 09/22/18 14:30 09/22/18 14:45 09/22/18 15:00 Temperature Pulse Rate 72 85 86 Respiratory Rate 14 17 14 Blood Pressure 96/60 L Pulse Oximetry 100 100 100 09/22/18 15:15 09/22/18 15:30 09/22/18 15:45 Temperature Pulse Rate 86 87 86 Respiratory Rate 13 14 14 Blood Pressure Pulse Oximetry 100 100 100 09/22/18 16:00 09/22/18 16:15 09/22/18 16:23 Temperature 97.6 F Pulse Rate 72 74 Respiratory Rate 16 15 16 Blood Pressure 101/59 L Pulse Oximetry 100 100 100 09/22/18 16:30 09/22/18 16:45 09/22/18 17:00 Temperature Pulse Rate 75 76 72 Respiratory Rate 14 14 13 Blood Pressure 94/64 L Pulse Oximetry 100 100 100 09/22/18 17:15 09/22/18 17:30 09/22/18 17:45 Temperature Pulse Rate 73 73 73 Respiratory Rate 14 14 14 Blood Pressure Pulse Oximetry 100 100 100 09/22/18 18:00 09/22/18 18:15 09/22/18 18:30 Temperature Pulse Rate 76 82 76 Respiratory Rate 15 15 15 Blood Pressure 101/67 Pulse Oximetry 100 100 100 09/22/18 18:45 09/22/18 19:00 09/22/18 19:15 Temperature Pulse Rate 81 80 86 Respiratory Rate 15 18 19 Blood Pressure 111/58 L Pulse Oximetry 100 100 100 09/22/18 19:30 09/22/18 19:45 09/22/18 20:00 Temperature 98.8 F Pulse Rate 89 89 90 Respiratory Rate 15 15 15 Blood Pressure 96/55 L Pulse Oximetry 100 100 100 09/22/18 20:26 09/22/18 20:30 09/22/18 20:45 Temperature Pulse Rate 89 90 Respiratory Rate 15 4 L 11 L Blood Pressure Pulse Oximetry 100 100 100 09/22/18 21:00 09/22/18 22:00 09/22/18 23:00 Temperature Pulse Rate 90 87 88 Respiratory Rate 16 14 13 Blood Pressure 113/66 102/59 L 101/59 L Pulse Oximetry 100 100 100 09/22/18 23:30 09/22/18 23:45 09/23/18 00:00 Temperature 97.3 F L Pulse Rate 88 89 88 Respiratory Rate 13 13 14 Blood Pressure 108/65 Pulse Oximetry 100 100 100 09/23/18 00:10 09/23/18 01:00 09/23/18 01:15 Temperature Pulse Rate 89 89 Respiratory Rate 17 13 17 Blood Pressure 94/56 L Pulse Oximetry 100 100 100 09/23/18 02:00 09/23/18 03:00 09/23/18 03:15 Temperature Pulse Rate 89 85 85 Respiratory Rate 14 16 16 Blood Pressure 102/63 102/66 Pulse Oximetry 100 100 100 09/23/18 04:00 09/23/18 04:15 09/23/18 04:30 Temperature 98.3 F Pulse Rate 90 91 H 91 H Respiratory Rate 14 18 13 Blood Pressure 105/60 Pulse Oximetry 100 100 100 09/23/18 05:00 09/23/18 05:30 09/23/18 05:45 Temperature Pulse Rate 91 H 91 H 90 Respiratory Rate 13 13 13 Blood Pressure 93/53 L Pulse Oximetry 100 100 100 09/23/18 06:00 09/23/18 07:00 09/23/18 08:00 Temperature 97.3 F L Pulse Rate 90 91 H 83 Respiratory Rate 13 13 12 Blood Pressure 94/53 L 98/57 L 108/60 Pulse Oximetry 100 100 100 09/23/18 08:40 09/23/18 09:00 09/23/18 10:00 Temperature Pulse Rate 94 H 90 Respiratory Rate 16 13 12 Blood Pressure 101/56 L 90/51 L Pulse Oximetry 100 100 100 09/23/18 11:00 09/23/18 11:04 Temperature Pulse Rate 90 90 Respiratory Rate 12 12 Blood Pressure 84/53 L 89/52 L Pulse Oximetry 100 100 Intake & Output 09/22/18 09/23/18 09/23/18 18:59 06:59 18:59 Intake Total 1999 / 1999 1686 / 1686 162 / 162 Output Total 1100 / 1100 1450 / 1450 Balance 900 / 900 236 / 236 162 / 162 Weight 119.2 kg Intake: IV 612 / 612 1262 / 1262 162 / 162 NS Inj 1,000 ML @ 150 mls/hr IV 1000 / 1000 .CONT .Q6H40M [facility] Rx#:[id number] Sodium Chloride 23.4% Inj 38.5 300 / 300 MEQ In Sterile Water for Inj 1, 000 ML @ 150 mls/hr IV.CONT . Q6H44M [facility] Rx#:[id number] Flexbumin 25% Inj 100 ML @ 60 100 / 100 100 / 100 mls/hr IV.SIG Q12H [facility] Rx#: [id number] Diflucan 100 mg Premix Bag 50 50 / 50 ML @ 50 mls/hr IV.SIG Q24H [facility] Rx#:[id number] Cerebyx Inj 100 MGPE In NS Inj 52 / 52 52 / 52 52 / 52 50 ML @ 216 mls/hr IV.SIG Q12HR [facility] Rx#:[id number] Vimpat Inj 100 MG In NS Inj 100 110 / 110 110 / 110 110 / 110 ML @ 110 mls/hr IV.SIG Q12HR [facility] Rx#:[id number] Tube Feeding 538 / 538 424 / 424 Tube Irrigant 450 / 450 Water Bolus Amount 400 / 400 Output: Stool 300 / 300 400 / 400 Urine Amount (Catheter) 800 / 800 1050 / 1050 Indwelling Temp Sensing 800 / 800 1050 / 1050 Catheter Other: Date of Last Bowel Movement 09/22/18 09/23/18 Narrative: GENERAL: in NAD, SKIN: Warm and dry. HEAD: Atraumatic. Normocephalic. EYES: Sluggishly reactive ENT: Intubated NECK: Intubated CARDIOVASCULAR: Regular rate and rhythm. RESPIRATORY: Intubated GASTROINTESTINAL: Abdomen soft, non-tender, nondistended. MUSCULOSKELETAL: No obvious deformities. Bilateral lower extremity edema NEUROLOGICAL: Intubated, coma state PSYCHIATRIC: Intubated, calm - Urinary Catheter Management Indwelling Urethral Catheter Cath placed during this visit: yes, but has since been removed by the nurse Reason for continuing: Decision to DC catheter Insertion date: 09/06/18 Insertion time: 23:00 Removal date: 09/08/18 Removal time: 18:21 Straight Cath placed during this visit: yes, but has since been removed by the nurse Reason for continuing: Decision to DC catheter Insertion date: 09/09/18 Insertion time: 02:20 Removal date: 09/10/18 Removal time: 12:00 Indwelling Temp Sensing Catheter Cath placed during this visit: yes Reason for continuing: Acute urinary retention Insertion date: 09/12/18 Insertion time: 15:30 Assessment and Plan - Assessment (1) Chronic kidney disease (CKD) stage G3a/A1, moderately decreased glomerular filtration rate (GFR) between 45-59 mL/min/1.73 square meter and albuminuria creatinine ratio less than 30 mg/g Code(s): N18.3 - Chronic kidney disease, stage 3 (moderate) Status: Acute (2) Hyperkalemia Code(s): E87.5 - Hyperkalemia Status: Acute (3) ICH (intracerebral hemorrhage) Code(s): I61.9 - Nontraumatic intracerebral hemorrhage, unspecified Status: Acute Qualifiers: Intracerebral hemorrhage etiology: traumatic Encounter type: initial encounter Laterality: left Loss of consciousness presence/duration: with LOC of unspecified duration Qualified Code(s): S06.359A - Traumatic hemorrhage of left cerebrum with loss of consciousness of unspecified duration, initial encounter (4) Localization-related (focal) (partial) symptomatic epilepsy and epileptic syndromes with complex partial seizures, intractable, with status epilepticus Code(s): G40.211 - Localization-related (focal) (partial) symptomatic epilepsy and epileptic syndromes with complex partial seizures, intractable, with status epilepticus Status: Acute (5) Atrial fibrillation Code(s): I48.91 - Unspecified atrial fibrillation Status: Acute (6) Acute encephalopathy Code(s): G93.40 - Encephalopathy, unspecified Status: Acute - Plan Patient is on tube feed, ON Nepro as patient has reduced GFR and accumulating potassium Potassium 5.2 patient has C. difficile Given albumin and Lasix for diuresis monitor BMP More aggressive cares like dialysis may be due to volume Patient has frontal mass and pathology is pending Patient remains critically ill intubated on ventilator he has edema Continue supportive care Family at bedside possible palliative care
[2018-09-23] MEDS: Sod Chloride 0.9% Inj 1,000 ML IV.CONT SCH (11:52)
--- NOTE | 2018-09-23 12:28 | P.PNPAL ---
Reason for Visit Reason for visit: a. To assist with evaluation and management of symptoms including: Dyspnea, encephalopathy b. To assist medical decision maker(s) with: better understanding of current medical conditions; weighing benefits/burdens of medical treatment options; making medical treatment decisions. Subjective Subjective/Interval History: Pt seen today to follow up with family meeting regarding goals of medical treatment. Call from nurse prior to my arrival on unit notified that family has arrived and requesting meeting. Stable overnight. Renal function remains elevated 148/creatinine 1.49-nephrology may consider hemodialysis. Creatinine slightly improved today. H&H slowly downtrending 7.5/ 24.4. WBC 8.1, but no patient steroids. Platelets 201. CXR today indicative of worsening aeration. Pathology of resection still pending, reported has been sent out to [facility] for additional evaluation. Patient seen in room multiple family members at bedside. Dual visit with Maurilio Davis APRN. Nurse also present for exam. Met with family at length in conference room approximately 40 minutes. Patient is minimally responsive to exam . Pupils are reactive. Positive corneal reflex. Weak gag present. Slight thrusting motion leftward of the tongue noted. No withdrawal to pain stimuli on extremities. Nursing does report possible slight grimace earlier with pain stimuli to upper extremity. .discussed w Nephrology, critical care, primary Nurse. . Family/Friend Interactions: Met with , 2 daughters, grandson, son-in-law at length discussion included: Palliative care role, purpose, approach Additional medical, psychosocial, and spiritual history, fam requests clinical education specialist visits. Patients general health, functional status, and cognitive changes in the months leading up to the current hospitalization family understanding of the current medical problems family understanding of prognosis Patients goals of care as best understood from advance directives and/or conversations and/or values Current medical treatment options and benefits/burdens of those options CODE STATUS-benefits/burdens/limitations of CPR with Legal decision makers- is legal proxy per statutes, she wishes to involve their children in decision-making as well Questions answered to the best of my ability Palliative care contact information provided Met with family at length. Much review of patient multiple organ failure and significant complicated medical issues currently. Review of pending pathology which could reveal further treatable conditions versus could reveal findings that may worsen patient prognosis or treatment options. Additionally review challenges with ongoing aggressive treatment of multiorgan issues and benefits/ burdens associated treatment. Explore with him resuscitation status they are considering no cardiac resuscitation they wish to discuss further as a family. I did review with them the possibility of hemodialysis and risks/benefits associated, they will further discuss this is a family as well. For right now they wish to continue with maximized medical treatments to try to help the patient towards recovery, while awaiting additional pathology information. They are open to ongoing conversation regarding goals as clinical course evolves. Objective Vital Signs: Vital Signs 09/22/18 12:15 09/22/18 12:30 09/22/18 12:45 Temperature Pulse Rate 80 70 82 Respiratory Rate 15 10 L 15 Blood Pressure Pulse Oximetry 100 100 100 09/22/18 13:00 09/22/18 13:15 09/22/18 13:30 Temperature Pulse Rate 87 87 88 Respiratory Rate 3 L 15 14 Blood Pressure 97/59 L Pulse Oximetry 100 100 100 09/22/18 13:45 09/22/18 14:00 09/22/18 14:05 Temperature Pulse Rate 88 91 H Respiratory Rate 15 15 16 Blood Pressure 98/63 L Pulse Oximetry 100 100 100 09/22/18 14:15 09/22/18 14:30 09/22/18 14:45 Temperature Pulse Rate 81 72 85 Respiratory Rate 13 14 17 Blood Pressure Pulse Oximetry 100 100 100 09/22/18 15:00 09/22/18 15:15 09/22/18 15:30 Temperature Pulse Rate 86 86 87 Respiratory Rate 14 13 14 Blood Pressure 96/60 L Pulse Oximetry 100 100 100 09/22/18 15:45 09/22/18 16:00 09/22/18 16:15 Temperature 97.6 F Pulse Rate 86 72 74 Respiratory Rate 14 16 15 Blood Pressure 101/59 L Pulse Oximetry 100 100 100 09/22/18 16:23 09/22/18 16:30 09/22/18 16:45 Temperature Pulse Rate 75 76 Respiratory Rate 16 14 14 Blood Pressure Pulse Oximetry 100 100 100 09/22/18 17:00 09/22/18 17:15 09/22/18 17:30 Temperature Pulse Rate 72 73 73 Respiratory Rate 13 14 14 Blood Pressure 94/64 L Pulse Oximetry 100 100 100 09/22/18 17:45 09/22/18 18:00 09/22/18 18:15 Temperature Pulse Rate 73 76 82 Respiratory Rate 14 15 15 Blood Pressure 101/67 Pulse Oximetry 100 100 100 09/22/18 18:30 09/22/18 18:45 09/22/18 19:00 Temperature Pulse Rate 76 81 80 Respiratory Rate 15 15 18 Blood Pressure 111/58 L Pulse Oximetry 100 100 100 09/22/18 19:15 09/22/18 19:30 09/22/18 19:45 Temperature Pulse Rate 86 89 89 Respiratory Rate 19 15 15 Blood Pressure Pulse Oximetry 100 100 100 09/22/18 20:00 09/22/18 20:26 09/22/18 20:30 Temperature 98.8 F Pulse Rate 90 89 Respiratory Rate 15 15 4 L Blood Pressure 96/55 L Pulse Oximetry 100 100 100 09/22/18 20:45 09/22/18 21:00 09/22/18 22:00 Temperature Pulse Rate 90 90 87 Respiratory Rate 11 L 16 14 Blood Pressure 113/66 102/59 L Pulse Oximetry 100 100 100 09/22/18 23:00 09/22/18 23:30 09/22/18 23:45 Temperature Pulse Rate 88 88 89 Respiratory Rate 13 13 13 Blood Pressure 101/59 L Pulse Oximetry 100 100 100 09/23/18 00:00 09/23/18 00:10 09/23/18 01:00 Temperature 97.3 F L Pulse Rate 88 89 Respiratory Rate 14 17 13 Blood Pressure 108/65 94/56 L Pulse Oximetry 100 100 100 09/23/18 01:15 09/23/18 02:00 09/23/18 03:00 Temperature Pulse Rate 89 89 85 Respiratory Rate 17 14 16 Blood Pressure 102/63 102/66 Pulse Oximetry 100 100 100 09/23/18 03:15 09/23/18 04:00 09/23/18 04:15 Temperature 98.3 F Pulse Rate 85 90 91 H Respiratory Rate 16 14 18 Blood Pressure 105/60 Pulse Oximetry 100 100 100 09/23/18 04:30 09/23/18 05:00 09/23/18 05:30 Temperature Pulse Rate 91 H 91 H 91 H Respiratory Rate 13 13 13 Blood Pressure 93/53 L Pulse Oximetry 100 100 100 09/23/18 05:45 09/23/18 06:00 09/23/18 07:00 Temperature Pulse Rate 90 90 91 H Respiratory Rate 13 13 13 Blood Pressure 94/53 L 98/57 L Pulse Oximetry 100 100 100 09/23/18 08:00 09/23/18 08:40 09/23/18 09:00 Temperature 97.3 F L Pulse Rate 83 94 H Respiratory Rate 12 16 13 Blood Pressure 108/60 101/56 L Pulse Oximetry 100 100 100 09/23/18 10:00 09/23/18 11:00 09/23/18 11:04 Temperature Pulse Rate 90 90 90 Respiratory Rate 12 12 12 Blood Pressure 90/51 L 84/53 L 89/52 L Pulse Oximetry 100 100 100 09/23/18 11:43 Temperature Pulse Rate Respiratory Rate 16 Blood Pressure Pulse Oximetry 100 Intake & Output 09/22/18 09/23/18 09/23/18 18:59 06:59 18:59 Intake Total 1999 / 1999 1686 / 1686 1162 / 1162 Output Total 1100 / 1100 1450 / 1450 Balance 900 / 900 236 / 236 1162 / 1162 Weight 119.2 kg Intake: IV 612 / 612 1262 / 1262 1162 / 1162 NS Inj 1,000 ML @ 150 mls/hr IV 1000 / 1000 1000 / 1000 .CONT .Q6H40M MAGALY Rx#:[id number] Sodium Chloride 23.4% Inj 38.5 300 / 300 MEQ In Sterile Water for Inj 1, 000 ML @ 150 mls/hr IV.CONT . Q6H44M MAGALY Rx#:[id number] Flexbumin 25% Inj 100 ML @ 60 100 / 100 100 / 100 mls/hr IV.SIG Q12H MAGALY Rx#: [id number] Diflucan 100 mg Premix Bag 50 50 / 50 ML @ 50 mls/hr IV.SIG Q24H MAGALY Rx#:[id number] Cerebyx Inj 100 MGPE In NS Inj 52 / 52 52 / 52 52 / 52 50 ML @ 216 mls/hr IV.SIG Q12HR MAGALY Rx#:[id number] Vimpat Inj 100 MG In NS Inj 100 110 / 110 110 / 110 110 / 110 ML @ 110 mls/hr IV.SIG Q12HR MAGALY Rx#:[id number] Tube Feeding 538 / 538 424 / 424 Tube Irrigant 450 / 450 Water Bolus Amount 400 / 400 Output: Stool 300 / 300 400 / 400 Urine Amount (Catheter) 800 / 800 1050 / 1050 Indwelling Temp Sensing 800 / 800 1050 / 1050 Catheter Other: Date of Last Bowel Movement 09/22/18 09/23/18 Physical Exam: CONSTITUTIONAL/GENERAL: This is an adequately nourished patient, nonresponsive to exam TUBES/LINES/DRAINS: Peripheral iv bilateral upper extremity, Fields catheter, rectal drainage, ET tube, OG tube, soft restraints bilaterally SKIN: No jaundice, rashes, or lesions. No wounds seen anteriorly. Well-healed midline abdominal scar. Well-healed sternal scar. Well-healed right knee scar few scattered ecchymosis and skin tears bilateral arms. Some serous drainage from arms. Skin temperature warm and dry. EYES: Pupils equal and round and reactive, 3 mm. Does not blink to threat. + corneal. No scleral icterus. No injection or drainage. Fundi not examined. ENT: Nose without bleeding or purulent drainage. limited oropharynx exam secondary to tubes, no evident lesions or exudates. CARDIOVASCULAR: Irregular heart rate. Heart sounds difficult to auscultate over breath sounds. Peripheral pulses faintly palpable. Significant peripheral edema. RESPIRATORY/CHEST: Symmetric, unlabored respirations via ET tube to mechanical vent. Coarse scattered rhonchi . Breath sounds equal bilaterally. GASTROINTESTINAL: Abdomen soft, obese, unable to determine tenderness, nondistended. No hepato-splenomegaly, or palpable masses. Bowel sounds hypoactive. GENITOURINARY: Without palpable bladder distension. Fields catheter in place.+ Scrotal edema. MUSCULOSKELETAL: Extremities without clubbing, cyanosis. No joint effusion noted. 2+ edema all 4 extremities. NEUROLOGICAL: not on sedation. No eye opening. +corneal, + pupillary response. No withdrawal to pain. Very weak/slight gag reflex with ET tube stimuli. + thrusting motion with tongue to left with pain stimuli. PSYCHIATRIC: Limited assessment secondary to clinical condition no evident distress Diagnostic Tests Laboratory: Laboratory Results - last 72 hr 09/20/18 09/21/18 09/21/18 17:36 01:16 EST 03:21 WBC RBC Hgb Hct MCV MCH MCHC RDW Plt Count MPV Sodium 144 Potassium 5.8 H Chloride 111 H Carbon Dioxide 24.2 Anion Gap 9 BUN 141 H Creatinine 1.31 H Estimated GFR 53 L POC Glucose 230 H 270 H Random Glucose 267 H Calcium 7.9 L Phosphorus 4.0 Magnesium 2.7 H Total Bilirubin AST ALT Alkaline Phosphatase Total Protein Albumin Urine Color Urine Clarity Urine pH Ur Specific [place] Urine Protein Urine Glucose (UA) Urine Ketones Urine Occult Blood Urine Nitrate Urine Bilirubin Urine Urobilinogen Ur Leukocyte Esterase Urine RBC Urine WBC Ur Squamous Epith Cells Urine Bacteria Urine Mucus Urine Yeast Micro UA Comment Ur Microscopic Review Urine Culture Comments Ur Microalbumin mg/L U Creat (Microalbumin) Microalb/Creat Ratio Phenytoin 14.5 Phenobarbital 30.2 09/21/18 09/21/18 09/21/18 03:21 11:34 12:10 WBC 24.7 H RBC 2.59 L Hgb 9.0 L Hct 28.2 L MCV 108.6 H MCH 34.8 H MCHC 32.1 RDW 17.5 H Plt Count 193 MPV 10.1 Sodium Potassium Chloride Carbon Dioxide Anion Gap BUN Creatinine Estimated GFR POC Glucose 359 H Random Glucose Calcium Phosphorus Magnesium Total Bilirubin AST ALT Alkaline Phosphatase Total Protein Albumin Urine Color Yellow Urine Clarity Hazy H Urine pH 5.0 Ur Specific [place] 1.015 Urine Protein Negative Urine Glucose (UA) Negative Urine Ketones Negative Urine Occult Blood Large H Urine Nitrate Negative Urine Bilirubin Negative Urine Urobilinogen Less than 2 Ur Leukocyte Esterase Negative Urine RBC Less than 1 Urine WBC 3 Ur Squamous Epith Cells <1 Urine Bacteria Occasional H Urine Mucus Few H Urine Yeast Moderate H Micro UA Comment Cath-culture ind Ur Microscopic Review Not Reportable Urine Culture Comments Cath-cult indicated Ur Microalbumin mg/L U Creat (Microalbumin) Microalb/Creat Ratio Phenytoin Phenobarbital 09/21/18 09/21/18 09/22/18 12:10 17:27 04:37 WBC RBC Hgb Hct MCV MCH MCHC RDW Plt Count MPV Sodium 139 Potassium 5.8 H Chloride 106 Carbon Dioxide 21.2 Anion Gap 12 BUN 153 H Creatinine 1.53 H Estimated GFR 44 L POC Glucose 260 H Random Glucose 207 H Calcium 7.7 L Phosphorus 4.8 Magnesium 2.7 H Total Bilirubin AST ALT Alkaline Phosphatase Total Protein Albumin Urine Color Urine Clarity Urine pH Ur Specific [place] Urine Protein Urine Glucose (UA) Urine Ketones Urine Occult Blood Urine Nitrate Urine Bilirubin Urine Urobilinogen Ur Leukocyte Esterase Urine RBC Urine WBC Ur Squamous Epith Cells Urine Bacteria Urine Mucus Urine Yeast Micro UA Comment Ur Microscopic Review Urine Culture Comments Ur Microalbumin mg/L 28 U Creat (Microalbumin) 37.0 Microalb/Creat Ratio 77 H Phenytoin 16.4 Phenobarbital 29.4 09/22/18 09/22/18 09/22/18 04:37 06:46 11:19 WBC 27.9 H RBC 2.22 L Hgb 7.8 L Hct 23.9 L MCV 107.4 H MCH 35.3 H MCHC 32.8 RDW 17.0 Plt Count 199 MPV 9.9 Sodium Potassium Chloride Carbon Dioxide Anion Gap BUN Creatinine Estimated GFR POC Glucose 284 H 245 H Random Glucose Calcium Phosphorus Magnesium Total Bilirubin AST ALT Alkaline Phosphatase Total Protein Albumin Urine Color Urine Clarity Urine pH Ur Specific [place] Urine Protein Urine Glucose (UA) Urine Ketones Urine Occult Blood Urine Nitrate Urine Bilirubin Urine Urobilinogen Ur Leukocyte Esterase Urine RBC Urine WBC Ur Squamous Epith Cells Urine Bacteria Urine Mucus Urine Yeast Micro UA Comment Ur Microscopic Review Urine Culture Comments Ur Microalbumin mg/L U Creat (Microalbumin) Microalb/Creat Ratio Phenytoin Phenobarbital 09/22/18 09/22/18 09/22/18 13:26 17:52 17:55 WBC RBC Hgb 7.7 L Hct 24.3 L MCV MCH MCHC RDW Plt Count MPV Sodium Potassium Chloride Carbon Dioxide Anion Gap BUN Creatinine Estimated GFR POC Glucose 294 H 271 H Random Glucose Calcium Phosphorus Magnesium Total Bilirubin AST ALT Alkaline Phosphatase Total Protein Albumin Urine Color Urine Clarity Urine pH Ur Specific [place] Urine Protein Urine Glucose (UA) Urine Ketones Urine Occult Blood Urine Nitrate Urine Bilirubin Urine Urobilinogen Ur Leukocyte Esterase Urine RBC Urine WBC Ur Squamous Epith Cells Urine Bacteria Urine Mucus Urine Yeast Micro UA Comment Ur Microscopic Review Urine Culture Comments Ur Microalbumin mg/L U Creat (Microalbumin) Microalb/Creat Ratio Phenytoin Phenobarbital 09/22/18 09/23/18 09/23/18 23:48 05:29 08:42 WBC RBC Hgb Hct MCV MCH MCHC RDW Plt Count MPV Sodium 141 Potassium 5.2 H Chloride 107 Carbon Dioxide 21.8 Anion Gap 12 BUN 148 H Creatinine 1.49 H Estimated GFR 46 L POC Glucose 273 H 241 H Random Glucose 281 H Calcium 7.8 L Phosphorus Magnesium 2.6 H Total Bilirubin 0.5 AST 20 ALT 12 Alkaline Phosphatase 94 Total Protein 5.6 L Albumin 2.3 L Urine Color Urine Clarity Urine pH Ur Specific [place] Urine Protein Urine Glucose (UA) Urine Ketones Urine Occult Blood Urine Nitrate Urine Bilirubin Urine Urobilinogen Ur Leukocyte Esterase Urine RBC Urine WBC Ur Squamous Epith Cells Urine Bacteria Urine Mucus Urine Yeast Micro UA Comment Ur Microscopic Review Urine Culture Comments Ur Microalbumin mg/L U Creat (Microalbumin) Microalb/Creat Ratio Phenytoin 14.2 Phenobarbital 28.4 09/23/18 09/23/18 10:00 11:57 WBC 28.1 H RBC 2.14 L Hgb 7.5 L Hct 24.4 L MCV 113.9 H D MCH 35.2 H MCHC 30.9 L RDW 18.6 H Plt Count 201 MPV 8.9 Sodium Potassium Chloride Carbon Dioxide Anion Gap BUN Creatinine Estimated GFR POC Glucose 302 H Random Glucose Calcium Phosphorus Magnesium Total Bilirubin AST ALT Alkaline Phosphatase Total Protein Albumin Urine Color Urine Clarity Urine pH Ur Specific [place] Urine Protein Urine Glucose (UA) Urine Ketones Urine Occult Blood Urine Nitrate Urine Bilirubin Urine Urobilinogen Ur Leukocyte Esterase Urine RBC Urine WBC Ur Squamous Epith Cells Urine Bacteria Urine Mucus Urine Yeast Micro UA Comment Ur Microscopic Review Urine Culture Comments Ur Microalbumin mg/L U Creat (Microalbumin) Microalb/Creat Ratio Phenytoin Phenobarbital Result Diagrams: 09/23/18 10:00 09/23/18 08:42 Microbiology: Microbiology 09/22/18 13:23 Aerobic Blood Culture - Preliminary Blood - Peripheral No growth in 1 day Anaerobic Blood Culture - Preliminary No growth in 1 day 09/22/18 13:26 Aerobic Blood Culture - Preliminary Blood - Peripheral No growth in 1 day Anaerobic Blood Culture - Preliminary No growth in 1 day 09/21/18 12:10 Urine Culture - Preliminary Catheterized Urine Yeast - ID to follow Imaging: Impressions Chest X-Ray 09/23/18 06:00 CONCLUSION: Some interval worsening in aeration Assessment and Plan - Disease Oriented Problem List (1) Localization-related (focal) (partial) symptomatic epilepsy and epileptic syndromes with complex partial seizures, intractable, with status epilepticus (2) Atrial fibrillation (3) Acute encephalopathy (4) Hyperkalemia (5) Chronic kidney disease (CKD) stage G3a/A1, moderately decreased glomerular filtration rate (GFR) between 45-59 mL/min/1.73 square meter and albuminuria creatinine ratio less than 30 mg/g (6) C. difficile diarrhea (7) Status post craniotomy (8) Mitral valve regurgitation (9) Pulmonary hypertension (10) Acute respiratory failure with hypoxemia (11) Diabetes Pertinent Non-Medical Issues: Psychosocial: . Has adult children Spiritual: Legal:Pt unable to participate in decision making, not clear he will regain ability. Per [place] statutes would be approp legal proxy. May have advanced directives/HCS. Reported may have early dementia process. Unless she is deemed incapacitated, might recommend shared decision making with her and other family members Ethical issues impacting care: no ethical issues identified Important Contacts: Ludy Moise [phone] Grandson Ru [phone] . Prognosis: Admitted for seizure activity. Continue to have refractory seizure activity despite antiepileptics. Status post resection per neurosurgery. Neurological status not improving despite multiple interventions. Given very poor neuro status and assessments thus far if does not make significant improvement overall prognosis for meaningful recovery appears poor. Code Status: Full Code Plan: Legal decision maker:Pt unable to participate in decision making, not clear he will regain ability. Per [place] statutes would be approp legal proxy. May have advanced directives/HCS. Reported may have early dementia process. Unless she is deemed incapacitated, might recommend shared decision making with her and other family members Goals:For right now they wish to continue with maximized medical treatments to try to help the patient towards recovery, while awaiting additional pathology information. They are open to ongoing conversation regarding goals as clinical course evolves. CODE STATUS:full code SYMPTOMS: --dyspnea= intubated. Currently breathing comfortable on mech vent no sedation. Unable to medically wean 2/2 neuro status, seizures. -- seizures= hx of fall, SDH, this admit presents w seizure activity. Requiring multiple anti-epileptics per neuro, still w sz activity. s/p resection per neurosurgery, PATH pending. --pain- potential sources would include bedbound status, recent brain surgery. currently minimal responsive to any pain stimuli; any sedating agents held for neuro assessments. -- encephalopathy- hx of fall, SDH, this admit presents w seizure activity. Requiring multiple anti-epileptics per neuro, still w sz activity. s/p resection per neurosurgery, PATH pending. + renal failure, may be compounding encephalopathy?, may require Hemodialysis? Palliative care will continue to follow during hospital course as condition evolves, to assist patient/decision-maker with understanding of medical conditions, weighing benefits/burdens of treatment options, for clarification of goals of treatment. Additionally will assist with any symptoms of palliative concern Attestation Attestation: To help prompt me to consider important information that might be impacting today's encounter and assessment, information from prior notes written by myself or my colleagues may have been "brought forward" into today's note. My signature on this note, however, is an attestation that I personally performed the exam, history, and/or decision-making noted today, and, unless otherwise indicated, the interactions with patient, family, and staff as well as the review of records all occurred today. I also attest that the listed assessment and stated plan reflect my best clinical judgment today based on the combination of historical information, prior notes, and today's exam/ interactions. When time spent is documented, it refers only to time spent today by the signer, or if indicated, combined time spent today by collaborating physician/nurse practitioner.
--- NOTE | 2018-09-23 13:41 | P.PNCC ---
Subjective Subjective Remarks/Hospital Course: 69-year-old male with a history of recent ICH, and seizure disorder presents from home after he was seizing. Called paramedics arrived to find him seizing in the setting they gave him 2 of Versed to break his seizure after they establish IV access patient then in route has another seizure and they gave him 2 more Versed. The patient was a postictal voiding episode and became in respiratory distress needed to be intubated by the paramedics. They intubated him and arrived to emergency department sedated intubated and possibly seizing with contraction of the right hand. He was started on a propofol drip to keep him sedated as well as seizure-free and he has been admitted to the ICU. 09/07: No more seizure activity. Weaned to propofol 5 mics per kilogram per minute. AED restarted. CAT scan shows diminished size of left frontal lobe hematoma compared to prior study. 09/08: No more obvious seizure activity. Patient withdraws limbs aside from left foot. He grimaces to noxious stimulation. Breathes spontaneously over the ventilator. We need to confirm that he is indeed stopped seizing. Cerebyx added to Keppra. 09/09: Focus of left frontal intermittent seizure activity persists on 09/08. Still on Versed drip infusion and mechanical ventilation. Neurology service continues to adjust AED regimen. MRI yesterday without other significant injury aside from the known left frontal hematoma. 09/10: Focal area of intermittent seizure frontal lobe persisted yesterday on EEG. AED doses being adjusted. Urine output marginal, will reinstitute loop diuretic along with metolazone. Underlying cardiac function impaired at baseline with severe mitral and tricuspid regurgitation along with pulmonary hypertension as expected. Most recent echo is about a month ago. 09/11: Continued left fronto temporal seizure activity despite 3 AEDs. Juxtaposition of this 2 cm maturing left frontal lobe hematoma to the seizure activity is probably not coincidental. I have discussed with the family the concept of excising the mature hematoma in an attempt to attenuate the seizure activity. 09/12: Patient required versed yesterday for elevated airway pressures possibly related to seizure activity. No problems after Versed bolus and restarted. Plan is for resection of the seizure substrate in the left frontal lobe today. 09/13: Status post resection of left frontal lobe hemorrhagic mass yesterday. Return from OR on mechanical ventilation. Stable hemodynamics. Patient remains neurologically unstable with refractory seizures for which he underwent mass resection. 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 All sedation was stopped late Saturday and we are waiting for the gentleman to wake up. By cardiac echo obtained during his last admission he has both severe mitral and tricuspid regurgitation. He tends to retain fluid and is been chronically on Bumex 2 mg and metolazone 5 mg daily. Renal function tests indicate a prerenal type azotemia. It is unlikely that this represents too little intravascular volume because his weight is up and he has peripheral edema in his lower extremities. I have added albumin in an attempt to mobilize some fluid. Fortunately gas exchange has been good. 09/15: off sedation x 48h. still not following commands. very poor neuro exam. GCS 3. ? weak flicker of movement in the right upper extremity (unclear if posturing or withdraw) and slight grimace to painful stimuli. otherwise, no movement in any extremity. +cough. + corneals. pupils 2mm equal and reactive. EEG ordered. 09/16: remains off sedation for days. now worsening exam: no grimace at all to painful stimuli. GCS remains 3. EEG persistently poor, but no overt seizures. MRI ordered today without new ischemic area. anti-epileptic levels therapeutic. discussed with Dr. Bonilla: if no improvements by the end of the week, prognosis is grim at best. discussed this together at length with the family. states she does knows that he would not want trach/peg and would not want to live if he was not awake and off machines. 09/17: Elevated BUN likely contributing to his somnolence. Considering the extended period of time he was on moderate to high dose Versed it may well take many more days for that to clear as well. I am forced to hydrate him knowing that it will increase his peripheral edema. But were going to have to normalize his urea nitrogen before we can assume he is encephalopathic for some other reason. 09/18: Creatinine decline but BUN has increased again. Patient is being aggressively hydrated with hypotonic solution but were having a hard time keeping up with the was moderate diuresis from the hyperglycemia. Once again will increase the long-acting insulin coverage. Certainly elevated sodium and contributing to his somnolence. Decadron is making glucose control even harder. Underlying all this is heart failure and his ongoing retention of fluid , complicating all of these issues. 09/19: Minimal improvement and osmolality and BUN. Persistent white blood cell count elevation. No change in neurologic status. Family wishes to continue pursuing aggressively all avenues. Presently waiting for benzodiazepines to wear off. 09/20: Aside from some mouth movements there is no real increase in continuous activity nor withdrawal. Electrolytes require correction today after diuretics changed for the treatment of chronic heart failure. 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 No movement nor withdrawal today. 6 days since all all sedation and analgesia stopped. BUN 141 likely contributing to somnolence. Patient is well hydrated with greater than 1500 mL's of urine per day yet prerenal pattern persists. IV has been running at 150 mL's per hour for many days now and azotemia worsens. Possible component of osmotic diuresis secondary to hyperglycemia? In my discussions with family we have all decided if patient does not wake up more after 7 days without sedation, and normalized BUN, then recovery from this episode of status seizures is a lot less likely. 09/22: Remains unresponsive severely encephalopathy. WBC count increasing 20 7K today. Infectious disease consulted. Also patient's BUN/creatinine increasing BUN is 153 with a creatinine 1.5. D/W Neurology Dr. Bonilla, re nephrology consult for possible dialysis. He is recommending consulting palliative care. As the pathology may show glioma 09/23: Remains unresponsive severely encephalopathic. Remains orally intubated on mechanical ventilation. Tolerating tube feeds. Objective Vital Signs / I&O: Vital Signs 09/22/18 13:45 09/22/18 14:00 09/22/18 14:05 Temperature Pulse Rate 88 91 H Respiratory Rate 15 15 16 Blood Pressure 98/63 L Pulse Oximetry 100 100 100 09/22/18 14:15 09/22/18 14:30 09/22/18 14:45 Temperature Pulse Rate 81 72 85 Respiratory Rate 13 14 17 Blood Pressure Pulse Oximetry 100 100 100 09/22/18 15:00 09/22/18 15:15 09/22/18 15:30 Temperature Pulse Rate 86 86 87 Respiratory Rate 14 13 14 Blood Pressure 96/60 L Pulse Oximetry 100 100 100 09/22/18 15:45 09/22/18 16:00 09/22/18 16:15 Temperature 97.6 F Pulse Rate 86 72 74 Respiratory Rate 14 16 15 Blood Pressure 101/59 L Pulse Oximetry 100 100 100 09/22/18 16:23 09/22/18 16:30 09/22/18 16:45 Temperature Pulse Rate 75 76 Respiratory Rate 16 14 14 Blood Pressure Pulse Oximetry 100 100 100 09/22/18 17:00 09/22/18 17:15 09/22/18 17:30 Temperature Pulse Rate 72 73 73 Respiratory Rate 13 14 14 Blood Pressure 94/64 L Pulse Oximetry 100 100 100 09/22/18 17:45 09/22/18 18:00 09/22/18 18:15 Temperature Pulse Rate 73 76 82 Respiratory Rate 14 15 15 Blood Pressure 101/67 Pulse Oximetry 100 100 100 09/22/18 18:30 09/22/18 18:45 09/22/18 19:00 Temperature Pulse Rate 76 81 80 Respiratory Rate 15 15 18 Blood Pressure 111/58 L Pulse Oximetry 100 100 100 09/22/18 19:15 09/22/18 19:30 09/22/18 19:45 Temperature Pulse Rate 86 89 89 Respiratory Rate 19 15 15 Blood Pressure Pulse Oximetry 100 100 100 09/22/18 20:00 09/22/18 20:26 09/22/18 20:30 Temperature 98.8 F Pulse Rate 90 89 Respiratory Rate 15 15 4 L Blood Pressure 96/55 L Pulse Oximetry 100 100 100 09/22/18 20:45 09/22/18 21:00 09/22/18 22:00 Temperature Pulse Rate 90 90 87 Respiratory Rate 11 L 16 14 Blood Pressure 113/66 102/59 L Pulse Oximetry 100 100 100 09/22/18 23:00 09/22/18 23:30 09/22/18 23:45 Temperature Pulse Rate 88 88 89 Respiratory Rate 13 13 13 Blood Pressure 101/59 L Pulse Oximetry 100 100 100 09/23/18 00:00 09/23/18 00:10 09/23/18 01:00 Temperature 97.3 F L Pulse Rate 88 89 Respiratory Rate 14 17 13 Blood Pressure 108/65 94/56 L Pulse Oximetry 100 100 100 09/23/18 01:15 09/23/18 02:00 09/23/18 03:00 Temperature Pulse Rate 89 89 85 Respiratory Rate 17 14 16 Blood Pressure 102/63 102/66 Pulse Oximetry 100 100 100 09/23/18 03:15 09/23/18 04:00 09/23/18 04:15 Temperature 98.3 F Pulse Rate 85 90 91 H Respiratory Rate 16 14 18 Blood Pressure 105/60 Pulse Oximetry 100 100 100 09/23/18 04:30 09/23/18 05:00 09/23/18 05:30 Temperature Pulse Rate 91 H 91 H 91 H Respiratory Rate 13 13 13 Blood Pressure 93/53 L Pulse Oximetry 100 100 100 09/23/18 05:45 09/23/18 06:00 09/23/18 07:00 Temperature Pulse Rate 90 90 91 H Respiratory Rate 13 13 13 Blood Pressure 94/53 L 98/57 L Pulse Oximetry 100 100 100 09/23/18 08:00 09/23/18 08:40 09/23/18 09:00 Temperature 97.3 F L Pulse Rate 83 94 H Respiratory Rate 12 16 13 Blood Pressure 108/60 101/56 L Pulse Oximetry 100 100 100 09/23/18 10:00 09/23/18 11:00 09/23/18 11:04 Temperature Pulse Rate 90 90 90 Respiratory Rate 12 12 12 Blood Pressure 90/51 L 84/53 L 89/52 L Pulse Oximetry 100 100 100 09/23/18 11:43 Temperature Pulse Rate Respiratory Rate 16 Blood Pressure Pulse Oximetry 100 Intake & Output 09/22/18 09/23/18 09/23/18 18:59 06:59 18:59 Intake Total 1999 1686 / 1686 1162 / 1162 Output Total 1100 / 1100 1450 / 1450 Balance 900 / 900 236 / 236 1162 / 1162 Weight 119.2 kg Intake: IV 612 / 612 1262 / 1262 1162 / 1162 NS Inj 1,000 ML @ 150 mls/hr IV 1000 / 1000 1000 / 1000 .CONT .Q6H40M [facility] Rx#:[id number] Sodium Chloride 23.4% Inj 38.5 300 / 300 MEQ In Sterile Water for Inj 1, 000 ML @ 150 mls/hr IV.CONT . Q6H44M [facility] Rx#:[id number] Flexbumin 25% Inj 100 ML @ 60 100 / 100 100 / 100 mls/hr IV.SIG Q12H [facility] Rx#: [id number] Diflucan 100 mg Premix Bag 50 50 / 50 ML @ 50 mls/hr IV.SIG Q24H [facility] Rx#:[id number] Cerebyx Inj 100 MGPE In NS Inj 52 / 52 52 / 52 52 / 52 50 ML @ 216 mls/hr IV.SIG Q12HR [facility] Rx#:[id number] Vimpat Inj 100 MG In NS Inj 100 110 / 110 110 / 110 110 / 110 ML @ 110 mls/hr IV.SIG Q12HR [facility] Rx#:[id number] Tube Feeding 538 / 538 424 / 424 Tube Irrigant 450 / 450 Water Bolus Amount 400 / 400 Output: Stool 300 / 300 400 / 400 Urine Amount (Catheter) 800 / 800 1050 / 1050 Indwelling Temp Sensing 800 / 800 1050 / 1050 Catheter Other: Date of Last Bowel Movement 09/22/18 09/23/18 09/23/18 Result Diagrams: 09/23/18 10:00 09/23/18 08:42 Objective Remarks: gen: elderly male, in bed on ventilator heent: Incision clean dry neck: no jvd. trachea midline. Orally intubated chest: PRVC. equal chest rise. fio2 40%, nielson clear. cv: normal rate, regular rhythm. sinus, no JVD. abd: soft, nontender, nondistended. no guarding. Bowel sounds active extr: Some thigh edema. distal pulses 2+. neuro: GCS 3. no movement at all today to deep stimulation. Some occasional mouth and jaw movement. Breathes comfortably on spontaneous breathing trials with good respiratory drive. Assessment and Plan - Assessment and Plan Plan: Assessment: 77yM presented in status epilepticus with frontal mass now s/p craniotomy and mass resection with persistently very poor neurologic exam. MRI today. remains critically ill today, off pathway, with persistently dense encephalopathy. the longer we go without neurologic improvement, the more grim the prognosis. Recommend waiting until the end of the week, but then will likely need to get palliative care involved if no improvements. Will continue hydration with quarter normal saline and see how he responds but worsening azotemia is concerning. 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 Final path from sent out pending -IV Keppra. Cerebyx added 09/07. Phenobarbital added -Left frontal focus of intermittent seizures persists 09/08, 09/10, 09/11. improving eeg 09/15 -s/p resection of seizure substrate and left frontal lobe -> 09/12 -Saturday will be 7 days following removal of all sedation aside from a low dose of phenobarbital for seizure control. - ICH Old from beginning of August -Decreasing in size Resp: Acute hypoxic and hypercarbic Respiratory failure- persistent -Attempt to wean and extubate when seizure-free. Mental status will not permit extubation -Vent bundle -DuoNeb's as needed -Daily spontaneous breathing trials started CV: Atrial fibrillation Severe mitral and tricuspid regurgitation Pulmonary hypertension Dyslipidemia Hypertension -Metoprolol -Hold anticoagulation due to recent ICH -Hold Bumex 1 mg IV BID -Pravastatin -Metolazone -Metoprolol Renal: d/c bishop -Azotemia worsening -considering poor prognosis hold off HD. Nephrology following. Palliative care following FEN/GI: Acute protein calorie malnutrition- severe tube feeds ICU electrolyte protocol daily bmp, mg, phos Glucerna 1.5 enteral feeds continuous Heme/ID: C. difficile infection -Meets criteria for severe C. difficile infection-WBC count of 20 7K, creatinine 1.53 -ID consult -Patient received vancomycin and Zosyn during hospital admission August 19 and was discharged on Levaquin. -Diarrheal stool noticed day 3, antigen and toxin positive -Oral vancomycin 250 4 times daily started 09/09. Discontinue after 14 days. Endocrine: Diabetes -Insulin sliding scale -Made more difficult by Decadron, increased Levemir to 22 units subcu twice daily, continue increase sliding scale correction -Add thyroid replacement. DVT GI prophylaxis -Teds SCDs -Subcu heparin -Pepcid Overall impression: This gentleman is critically ill having sustained seizures which required intubation and mechanical ventilation for control. We are unable to wean him from the ventilator at this time. Intermittent nonconvulsive seizures were documented multiple times by EEG. Remains critically ill and neurologically unstable. Diuretics have been discontinued almost a week ago but still markedly elevated BUN; will need to be corrected before we can conclude that his mental status is severely impaired. Lengthy talk with family by Dr. Ochoa on 09/20, particularly son who is sort of spokesman, , and nephew. Dr. Melgoza spoke with son again this morning 09/21 and encouraged him to make a decision soon about whether they would like us to proceed with continued aggressive care including tracheostomy and PEG. Critical care 35 minutes aside from procedures.
--- NOTE | 2018-09-23 14:34 | P.PNNS ---
Subjective Interval history: no neuro changes overnight Physical Exam Vital signs: Vital Signs 09/22/18 14:45 09/22/18 15:00 09/22/18 15:15 Temperature Pulse Rate 85 86 86 Respiratory Rate 17 14 13 Blood Pressure 96/60 L Pulse Oximetry 100 100 100 09/22/18 15:30 09/22/18 15:45 09/22/18 16:00 Temperature 97.6 F Pulse Rate 87 86 72 Respiratory Rate 14 14 16 Blood Pressure 101/59 L Pulse Oximetry 100 100 100 09/22/18 16:15 09/22/18 16:23 09/22/18 16:30 Temperature Pulse Rate 74 75 Respiratory Rate 15 16 14 Blood Pressure Pulse Oximetry 100 100 100 09/22/18 16:45 09/22/18 17:00 09/22/18 17:15 Temperature Pulse Rate 76 72 73 Respiratory Rate 14 13 14 Blood Pressure 94/64 L Pulse Oximetry 100 100 100 09/22/18 17:30 09/22/18 17:45 09/22/18 18:00 Temperature Pulse Rate 73 73 76 Respiratory Rate 14 14 15 Blood Pressure 101/67 Pulse Oximetry 100 100 100 09/22/18 18:15 09/22/18 18:30 09/22/18 18:45 Temperature Pulse Rate 82 76 81 Respiratory Rate 15 15 15 Blood Pressure Pulse Oximetry 100 100 100 09/22/18 19:00 09/22/18 19:15 09/22/18 19:30 Temperature Pulse Rate 80 86 89 Respiratory Rate 18 19 15 Blood Pressure 111/58 L Pulse Oximetry 100 100 100 09/22/18 19:45 09/22/18 20:00 09/22/18 20:26 Temperature 98.8 F Pulse Rate 89 90 Respiratory Rate 15 15 15 Blood Pressure 96/55 L Pulse Oximetry 100 100 100 09/22/18 20:30 09/22/18 20:45 09/22/18 21:00 Temperature Pulse Rate 89 90 90 Respiratory Rate 4 L 11 L 16 Blood Pressure 113/66 Pulse Oximetry 100 100 100 09/22/18 22:00 09/22/18 23:00 09/22/18 23:30 Temperature Pulse Rate 87 88 88 Respiratory Rate 14 13 13 Blood Pressure 102/59 L 101/59 L Pulse Oximetry 100 100 100 09/22/18 23:45 09/23/18 00:00 09/23/18 00:10 Temperature 97.3 F L Pulse Rate 89 88 Respiratory Rate 13 14 17 Blood Pressure 108/65 Pulse Oximetry 100 100 100 09/23/18 01:00 09/23/18 01:15 09/23/18 02:00 Temperature Pulse Rate 89 89 89 Respiratory Rate 13 17 14 Blood Pressure 94/56 L 102/63 Pulse Oximetry 100 100 100 09/23/18 03:00 09/23/18 03:15 09/23/18 04:00 Temperature 98.3 F Pulse Rate 85 85 90 Respiratory Rate 16 16 14 Blood Pressure 102/66 105/60 Pulse Oximetry 100 100 100 09/23/18 04:15 09/23/18 04:30 09/23/18 05:00 Temperature Pulse Rate 91 H 91 H 91 H Respiratory Rate 18 13 13 Blood Pressure 93/53 L Pulse Oximetry 100 100 100 09/23/18 05:30 09/23/18 05:45 09/23/18 06:00 Temperature Pulse Rate 91 H 90 90 Respiratory Rate 13 13 13 Blood Pressure 94/53 L Pulse Oximetry 100 100 100 09/23/18 07:00 09/23/18 08:00 09/23/18 08:40 Temperature 97.3 F L Pulse Rate 91 H 83 Respiratory Rate 13 12 16 Blood Pressure 98/57 L 108/60 Pulse Oximetry 100 100 100 09/23/18 09:00 09/23/18 10:00 09/23/18 11:00 Temperature Pulse Rate 94 H 90 90 Respiratory Rate 13 12 12 Blood Pressure 101/56 L 90/51 L 84/53 L Pulse Oximetry 100 100 100 09/23/18 11:04 09/23/18 11:30 09/23/18 11:43 Temperature Pulse Rate 90 90 Respiratory Rate 12 11 L 16 Blood Pressure 89/52 L 91/53 L Pulse Oximetry 100 100 100 09/23/18 12:00 09/23/18 12:30 09/23/18 13:00 Temperature 97.6 F Pulse Rate 75 91 H 91 H Respiratory Rate 12 11 L 14 Blood Pressure 94/55 L 96/52 L 101/55 L Pulse Oximetry 100 100 100 09/23/18 13:30 Temperature Pulse Rate 74 Respiratory Rate 11 L Blood Pressure 94/53 L Pulse Oximetry 100 Intake & Output 09/22/18 09/23/18 09/23/18 18:59 06:59 18:59 Intake Total 1999 / 1999 1686 / 1686 1162 / 1162 Output Total 1100 / 1100 1450 / 1450 Balance 900 / 900 236 / 236 1162 / 1162 Weight 119.2 kg Intake: IV 612 / 612 1262 / 1262 1162 / 1162 NS Inj 1,000 ML @ 150 mls/hr IV 1000 / 1000 1000 / 1000 .CONT .Q6H40M [facility] Rx#:[id number] Sodium Chloride 23.4% Inj 38.5 300 / 300 MEQ In Sterile Water for Inj 1, 000 ML @ 150 mls/hr IV.CONT . Q6H44M [facility] Rx#:[id number] Flexbumin 25% Inj 100 ML @ 60 100 / 100 100 / 100 mls/hr IV.SIG Q12H [facility] Rx#: [id number] Diflucan 100 mg Premix Bag 50 50 / 50 ML @ 50 mls/hr IV.SIG Q24H [facility] Rx#:[id number] Cerebyx Inj 100 MGPE In NS Inj 52 / 52 52 / 52 52 / 52 50 ML @ 216 mls/hr IV.SIG Q12HR [facility] Rx#:[id number] Vimpat Inj 100 MG In NS Inj 100 110 / 110 110 / 110 110 / 110 ML @ 110 mls/hr IV.SIG Q12HR [facility] Rx#:[id number] Tube Feeding 538 / 538 424 / 424 Tube Irrigant 450 / 450 Water Bolus Amount 400 / 400 Output: Stool 300 / 300 400 / 400 Urine Amount (Catheter) 800 / 800 1050 / 1050 Indwelling Temp Sensing 800 / 800 1050 / 1050 Catheter Other: Date of Last Bowel Movement 09/22/18 09/23/18 09/23/18 Narrative: nursing reports to grimace, slight withdrawal RUE not opening eyes not following commands no purposeful movement wound healing well, clean and dry - Urinary Catheter Management Indwelling Urethral Catheter Cath placed during this visit: yes, but has since been removed by the nurse Reason for continuing: Decision to DC catheter Insertion date: 09/06/18 Insertion time: 23:00 Removal date: 09/08/18 Removal time: 18:21 Straight Cath placed during this visit: yes, but has since been removed by the nurse Reason for continuing: Decision to DC catheter Insertion date: 09/09/18 Insertion time: 02:20 Removal date: 09/10/18 Removal time: 12:00 Indwelling Temp Sensing Catheter Cath placed during this visit: yes Reason for continuing: Acute urinary retention Insertion date: 09/12/18 Insertion time: 15:30 Assessment and Plan - Plan 77yoM with intractable seizures s/p craniotomy 09/12 ([facility]onel) for resection of hemorrhagic seizure focus. Head MRI 09/16/18 00:00 CONCLUSION: 1. Postsurgical changes left frontal lobe with minimal basilar edema and minimal residual hemorrhage. 2. No midline shift or mass effect. 3. Cerebral atrophy. 4. No acute infarction. 5. Old left cerebellar infarct. no changes to neuro exam, remains poor, off sedatives, no plan for further interventions from a surgical standpoint neuro following cont Anti seizure medication cont critical care dc anisa 09/26/18
--- NOTE | 2018-09-23 16:11 | P.PNID ---
Subjective Remarks: Mr. Yancey is a 77-year-old male who was admitted on September 06, 2018 for seizure on arrival. Paramedics were called and patient was given Versed and transported to the hospital. She had postictal voiding was in respiratory distress and therefore had to be intubated by the paramedics. In the ER patient was seizing actively patient was started on a propofol drip and admitted to the ICU. CT scan showed a left frontal lobe hematoma. Neurology was consulted and patient was diagnosed with status epilepticus and started on an intensive AED regimen. An MRI of the brain was done which showed left frontal hematoma. Patient reportedly also has a history of intracranial hemorrhage prior to this admission and a seizure disorder diagnosis even prior to this admission. Neurosurgery was consulted and on 09/12/2018 patient underwent stereotactic image guided left frontal craniotomy with microsurgical resection of the hemorrhagic mass. 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 Cardiac echo showed severe mitral as well as tricuspid valve region regurgitation. On 09/14 patient's sedation was weaned off the patient did not show any neurological changes. His GCS on 1029 remained at 3 with some flickering movement noted in the right upper extremity and grimace to painful stimuli. Patient has several metabolic causes for possible enthesopathy in addition to this mass such as elevated BUN, hyponatremia. Due to persistent severe encephalopathy as well as elevated white count in the setting of positive C. difficile infectious disease was consulted. At the time of my evaluation patient remains in the ICU, intubated ventilated, currently not on any vasopressors, on AED regimen. Per discussion with RN the stool volume is actually improved today while on vancomycin oral. Overnight events reviewed. no fever no rash Diarrhea persists. No change in mentation. RN reports thick yellow secretions Antibiotics: Vanco oral dificid Diflucan for C.glabrata in urine Lines: Lines ok Past Medical History: reviewed Allergies/Adverse Reactions: Allergies digitoxin Allergy (Severe, Verified 08/19/18 15:46) Hallucinations Objective Vital Signs 09/22/18 16:15 09/22/18 16:23 09/22/18 16:30 Temperature Pulse Rate 74 75 Respiratory Rate 15 16 14 Blood Pressure Pulse Oximetry 100 100 100 09/22/18 16:45 09/22/18 17:00 09/22/18 17:15 Temperature Pulse Rate 76 72 73 Respiratory Rate 14 13 14 Blood Pressure 94/64 L Pulse Oximetry 100 100 100 09/22/18 17:30 09/22/18 17:45 09/22/18 18:00 Temperature Pulse Rate 73 73 76 Respiratory Rate 14 14 15 Blood Pressure 101/67 Pulse Oximetry 100 100 100 09/22/18 18:15 09/22/18 18:30 09/22/18 18:45 Temperature Pulse Rate 82 76 81 Respiratory Rate 15 15 15 Blood Pressure Pulse Oximetry 100 100 100 09/22/18 19:00 09/22/18 19:15 09/22/18 19:30 Temperature Pulse Rate 80 86 89 Respiratory Rate 18 19 15 Blood Pressure 111/58 L Pulse Oximetry 100 100 100 09/22/18 19:45 09/22/18 20:00 09/22/18 20:26 Temperature 98.8 F Pulse Rate 89 90 Respiratory Rate 15 15 15 Blood Pressure 96/55 L Pulse Oximetry 100 100 100 09/22/18 20:30 09/22/18 20:45 09/22/18 21:00 Temperature Pulse Rate 89 90 90 Respiratory Rate 4 L 11 L 16 Blood Pressure 113/66 Pulse Oximetry 100 100 100 09/22/18 22:00 09/22/18 23:00 09/22/18 23:30 Temperature Pulse Rate 87 88 88 Respiratory Rate 14 13 13 Blood Pressure 102/59 L 101/59 L Pulse Oximetry 100 100 100 09/22/18 23:45 09/23/18 00:00 09/23/18 00:10 Temperature 97.3 F L Pulse Rate 89 88 Respiratory Rate 13 14 17 Blood Pressure 108/65 Pulse Oximetry 100 100 100 09/23/18 01:00 09/23/18 01:15 09/23/18 02:00 Temperature Pulse Rate 89 89 89 Respiratory Rate 13 17 14 Blood Pressure 94/56 L 102/63 Pulse Oximetry 100 100 100 09/23/18 03:00 09/23/18 03:15 09/23/18 04:00 Temperature 98.3 F Pulse Rate 85 85 90 Respiratory Rate 16 16 14 Blood Pressure 102/66 105/60 Pulse Oximetry 100 100 100 09/23/18 04:15 09/23/18 04:30 09/23/18 05:00 Temperature Pulse Rate 91 H 91 H 91 H Respiratory Rate 18 13 13 Blood Pressure 93/53 L Pulse Oximetry 100 100 100 09/23/18 05:30 09/23/18 05:45 09/23/18 06:00 Temperature Pulse Rate 91 H 90 90 Respiratory Rate 13 13 13 Blood Pressure 94/53 L Pulse Oximetry 100 100 100 09/23/18 07:00 09/23/18 08:00 09/23/18 08:40 Temperature 97.3 F L Pulse Rate 91 H 83 Respiratory Rate 13 12 16 Blood Pressure 98/57 L 108/60 Pulse Oximetry 100 100 100 09/23/18 09:00 09/23/18 10:00 09/23/18 11:00 Temperature Pulse Rate 94 H 90 90 Respiratory Rate 13 12 12 Blood Pressure 101/56 L 90/51 L 84/53 L Pulse Oximetry 100 100 100 09/23/18 11:04 09/23/18 11:30 09/23/18 11:43 Temperature Pulse Rate 90 90 Respiratory Rate 12 11 L 16 Blood Pressure 89/52 L 91/53 L Pulse Oximetry 100 100 100 09/23/18 12:00 09/23/18 12:30 09/23/18 13:00 Temperature 97.6 F Pulse Rate 75 91 H 91 H Respiratory Rate 12 11 L 14 Blood Pressure 94/55 L 96/52 L 101/55 L Pulse Oximetry 100 100 100 09/23/18 13:30 09/23/18 15:39 Temperature Pulse Rate 74 Respiratory Rate 11 L 15 Blood Pressure 94/53 L Pulse Oximetry 100 100 Intake & Output 09/22/18 09/23/18 09/23/18 18:59 06:59 18:59 Intake Total 1999 1686 / 1686 1162 / 1162 Output Total 1100 / 1100 1450 / 1450 Balance 900 / 900 236 / 236 1162 / 1162 Weight 119.2 kg Intake: IV 612 / 612 1262 / 1262 1162 / 1162 NS Inj 1,000 ML @ 150 mls/hr IV 1000 / 1000 1000 / 1000 .CONT .Q6H40M [facility] Rx#:[id number] Sodium Chloride 23.4% Inj 38.5 300 / 300 MEQ In Sterile Water for Inj 1, 000 ML @ 150 mls/hr IV.CONT . Q6H44M [facility] Rx#:[id number] Flexbumin 25% Inj 100 ML @ 60 100 / 100 100 / 100 mls/hr IV.SIG Q12H [facility] Rx#: [id number] Diflucan 100 mg Premix Bag 50 50 / 50 ML @ 50 mls/hr IV.SIG Q24H [facility] Rx#:[id number] Cerebyx Inj 100 MGPE In NS Inj 52 / 52 52 / 52 52 / 52 50 ML @ 216 mls/hr IV.SIG Q12HR [facility] Rx#:[id number] Vimpat Inj 100 MG In NS Inj 100 110 / 110 110 / 110 110 / 110 ML @ 110 mls/hr IV.SIG Q12HR [facility] Rx#:[id number] Tube Feeding 538 / 538 424 / 424 Tube Irrigant 450 / 450 Water Bolus Amount 400 / 400 Output: Stool 300 / 300 400 / 400 Urine Amount (Catheter) 800 / 800 1050 / 1050 Indwelling Temp Sensing 800 / 800 1050 / 1050 Catheter Other: Date of Last Bowel Movement 09/22/18 09/23/18 09/23/18 09/21/18 12:10 Catheterized Urine Urine Culture - Preliminary Kathy glabrata 09/22/18 13:23 Blood - Peripheral Aerobic Blood Culture - Preliminary No growth in 1 day 09/22/18 13:23 Blood - Peripheral Anaerobic Blood Culture - Preliminary No growth in 1 day 09/22/18 13:26 Blood - Peripheral Aerobic Blood Culture - Preliminary No growth in 1 day 09/22/18 13:26 Blood - Peripheral Anaerobic Blood Culture - Preliminary No growth in 1 day Lab - Hematology Results 09/22/18 09/22/18 09/23/18 04:37 13:26 10:00 WBC 27.9 H 28.1 H RBC 2.22 L 2.14 L Hgb 7.8 L 7.7 L 7.5 L Hct 23.9 L 24.3 L 24.4 L MCV 107.4 H 113.9 H D MCH 35.3 H 35.2 H MCHC 32.8 30.9 L RDW 17.0 18.6 H Plt Count 199 201 MPV 9.9 8.9 Lab - Chemistry Results 09/21/18 09/22/18 09/22/18 17:27 04:37 06:46 Sodium 139 Potassium 5.8 H Chloride 106 Carbon Dioxide 21.2 Anion Gap 12 BUN 153 H Creatinine 1.53 H Estimated GFR 44 L POC Glucose 260 H 284 H Random Glucose 207 H Calcium 7.7 L Phosphorus 4.8 Magnesium 2.7 H Total Bilirubin AST ALT Alkaline Phosphatase Total Protein Albumin 09/22/18 09/22/18 09/22/18 11:19 17:52 17:55 Sodium Potassium Chloride Carbon Dioxide Anion Gap BUN Creatinine Estimated GFR POC Glucose 245 H 294 H 271 H Random Glucose Calcium Phosphorus Magnesium Total Bilirubin AST ALT Alkaline Phosphatase Total Protein Albumin 09/22/18 09/23/18 09/23/18 23:48 05:29 08:42 Sodium 141 Potassium 5.2 H Chloride 107 Carbon Dioxide 21.8 Anion Gap 12 BUN 148 H Creatinine 1.49 H Estimated GFR 46 L POC Glucose 273 H 241 H Random Glucose 281 H Calcium 7.8 L Phosphorus Magnesium 2.6 H Total Bilirubin 0.5 AST 20 ALT 12 Alkaline Phosphatase 94 Total Protein 5.6 L Albumin 2.3 L 09/23/18 11:57 Sodium Potassium Chloride Carbon Dioxide Anion Gap BUN Creatinine Estimated GFR POC Glucose 302 H Random Glucose Calcium Phosphorus Magnesium Total Bilirubin AST ALT Alkaline Phosphatase Total Protein Albumin Imaging: ITS Impressions Head CT 09/13/18 00:00 CONCLUSION: 1. Interval left frontal craniotomy with some hemorrhage in the operative bed and surrounding edema in the left frontal lobe. Currently no significant mass effect or shift. Drain in the subdural space. . Head MRI 09/16/18 00:00 CONCLUSION: 1. Postsurgical changes left frontal lobe with minimal basilar edema and minimal residual hemorrhage. 2. No midline shift or mass effect. 3. Cerebral atrophy. 4. No acute infarction. 5. Old left cerebellar infarct. Chest X-Ray 09/23/18 06:00 CONCLUSION: Some interval worsening in aeration Physical Exam: GENERAL: Sedated, on the vent, no response to painful stimuli. SKIN: Cool and dry, no generalized rash HEAD: Atraumatic. Normocephalic. No temporal or scalp tenderness. EYES: Pupils equal round and reactive. Scleral icterus. No injection or drainage. No petechia ENT: Orally intubated NECK: Trachea midline. Supple, nontender, no meningeal signs. CARDIOVASCULAR: HS audible,? murmur. RESPIRATORY: Air entry equal bilaterally. Clear to auscultation bilaterally. GASTROINTESTINAL: Abdomen soft,NT, no guarding or rigidity. MUSCULOSKELETAL: Extremities without clubbing, cyanosis. NEUROLOGICAL: No spontaneous eye opening, no response to verbal or deep painful stimuli. Psych could not be assessed IV line sites ok. Assessment and Plan - Plan Sepsis (leucocytosis, hypothermia) Cdiff positive diarrhea High grade leucocytosis: sepsis, cdiff, steroids Acute encephalopathy: [employer] mass ? 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 Metabolic causes contributing : hypernatremia, azotemia. Acute resp failure on vent Acute renal failure Recs: Continue Oral vanco continue Dificid 100 mg po bid continue diflucan for now. Sputum culture Follow blood cultures Follow cultures Follow clinical course. ronnie Pagan prognosis guarded, palliative care consulted. ronnie RN
[2018-09-24] MEDS: Oral Hygiene Kit OROPHARYNG SCH ×4 (00:37→16:36)
[2018-09-24] MEDS: Insulin NovoLOG Aspart Correctional Sugar Inj SQ SCH ×4 (00:38→17:53)
[2018-09-24] MEDS: Chlorhexidine 0.12% Oral Kit 15 ML UDC OROPHARYNG SCH ×3 (02:53→21:09)
[2018-09-24] MEDS: dilTIAZem 30 MG Tablet PO SCH ×4 (02:53→21:07)
[2018-09-24] MEDS: Insulin Detemir Inj 1,000 UNIT/10 ML Vial SQ SCH ×3 (02:53→22:54)
[2018-09-24] MEDS: Albumin Human 25% Inj 100 ML IV.SIG SCH ×2 (02:54→16:31)
[2018-09-24 05:43] LABS: Baso # (Auto) 0.1 th/mm3 (0.0-0.2); Baso % (Auto) 0.4 % (0.0-2.0); Eos # (Auto) 0.6 th/mm3 (0.0-0.4); Eos % (Auto) 2.5 % (0.0-4.0); Hematocrit 24.8 % (39.0-51.0); Hemoglobin 7.8 gm/dL (13.0-17.0); Lymph # (Auto) 0.8 th/mm3 (1.0-4.8); Mean Corpuscular HGB Conc 31.3 % (32.0-36.0); Mean Corpuscular Hemoglobin 34.1 pg (27.0-34.0); Mean Corpuscular Volume 108.9 fL (80.0-100.0); Mean Platelet Volume 10.1 fL (7.0-11.0); Mono # (Auto) 2.8 th/mm3 (0.0-0.9); Neut # (Auto) 21.1 th/mm3 (1.8-7.7); Neut % (Auto) 83.1 % (16.0-70.0); Platelet Count 230 th/mm3 (150-450); Red Blood Count 2.28 mil/mm3 (4.50-5.90); Red Cell Distribution Width 17.9 % (11.6-17.2); White Blood Count 25.4 th/mm3 (4.0-11.0)
[2018-09-24 06:36] LABS: Alanine Aminotransferase 12 U/L (12-78); Albumin 2.7 g/dL (3.4-5.0); Alkaline Phosphatase 100 U/L (45-117); Anion Gap 12 meq/L (5-15); Aspartate Aminotransferase 15 U/L (15-37); Blood Urea Nitrogen 134 mg/dL (7-18); Calcium 7.9 mg/dL (8.5-10.1); Carbon Dioxide 20.1 meq/L (21.0-32.0); Chloride 109 meq/L (98-107); Glomerular Filtration Rate 52 mL/min (>89); Glucose,Random 292 mg/dL (74-106); Phenytoin (Dilantin) 17.1 mcg/mL (10.0-20.0); Potassium 4.8 meq/L (3.5-5.1); Total Protein 6.2 g/dL (6.4-8.2)
[2018-09-24] MEDS: Levothyroxine 75 MCG Tablet PO SCH (06:36)
[2018-09-24] MEDS: Heparin - SQ 10,000 UNITS/ML Vial SQ SCH ×4 (06:36→21:06)
[2018-09-24 06:38] LABS: Sodium 141 meq/L (136-145)
[2018-09-24] MEDS: Sod Chloride 0.9% Inj 1,000 ML IV.CONT SCH ×4 (06:39→16:39)
[2018-09-24] MEDS: Fosphenytoin Inj 100 MGPE in Sodium Chlor 0.9% Inj 50 ML IV.SIG SCH ×2 (08:04→21:05)
[2018-09-24 08:05] LABS: Lymphocytes 4 % (9-44); Metamyelocytes 2 % (0-1); Monocytes 8 % (0-8); Myelocytes 5 % (0-0); Platelet Estimate Normal (Normal); Platelet Morphology Normal (Normal); Tallied Nucleated RBC 1 (0-0)
[2018-09-24 08:06] LABS: Ovalocytes 1+
[2018-09-24] MEDS: Senna/Docusate Sodium 8.6/50 MG Tablet PO SCH ×2 (08:06→21:07)
[2018-09-24] MEDS: Metoprolol Tartrate 50 MG Tablet PO SCH ×2 (08:06→21:08)
[2018-09-24] MEDS: PHENobarbital Inj 130 MG/ML Vial IV.PUSH SCH ×2 (08:06→21:07)
[2018-09-24] MEDS: Famotidine PF Inj 20 MG/2 ML Vial IV.PUSH SCH ×2 (08:06→21:08)
[2018-09-24] MEDS: Allopurinol 100 MG Tablet PO SCH (08:06)
--- NOTE | 2018-09-24 08:10 | P.PNNEU ---
Subjective Subjective Comments: No acute events, no seizure reported Active Medications: Active Medications Acetaminophen (Tylenol) 650 mg PO Q6H PRN PRN Reason: FOR FEVER >101F Last Admin: 09/11/18 19:57 Dose: 650 mg Al Hydroxide/Mg Hydroxide (Milk Of Magnbreanne Liq) 30 ml PO Q12H PRN PRN Reason: Mild Constipation Albuterol (Duoneb Neb (Prn)) 1 ampul NEB Q2HR NEB PRN PRN Reason: WHEEZING Last Admin: 09/17/18 19:45 Dose: 1 ampul Allopurinol (Zyloprim) 100 mg PO DAILY [facility] Last Admin: 09/23/18 08:25 Dose: 100 mg Bisacodyl (Dulcolax Supp) 10 mg RECTAL DAILY PRN PRN Reason: SEVERE CONSITIPATION Chlorhexidine Gluconate (Peridex 0.12% Oral Kit) 15 ml OROPHARYNG BID@0800, 2000 [facility] Last Admin: 09/24/18 02:53 Dose: 15 ml Dexamethasone Sodium Phosphate (Decadron Inj) 4 mg IV.PUSH Q12HR [facility] Last Admin: 09/23/18 20:40 Dose: 4 mg Dextrose (D50w Vial) 50 ml IV.PUSH UNSCH PRN PRN Reason: PER HYPOGLYCEMIA PROTOCOL Diltiazem HCl (Cardizem Cd 24hr) 120 mg PO DAILY [facility] Last Admin: 09/07/18 12:00 Dose: Not Given Diltiazem HCl (Cardizem) 30 mg PO Q6H [facility] Last Admin: 09/24/18 02:53 Dose: 30 mg Famotidine (Pepcid Pf Inj) 20 mg IV.PUSH Q12HR [facility] Last Admin: 09/23/18 20:44 Dose: 20 mg Fidaxomicin (Dificid) 200 mg PO BID [facility] Stop: 10/01/18 21:01 Last Admin: 09/23/18 20:42 Dose: 200 mg Furosemide (Lasix Inj) 40 mg IV.PUSH BID@0900,1800 [facility] Last Admin: 09/23/18 18:32 Dose: 40 mg Glucagon (Glucagon Inj) 1 mg OTHER PRN PRN PRN Reason: for Hypoglycemia Protocol Heparin Sodium (Porcine) (Heparin Inj) 5,000 units SQ Q8HR [facility] Last Admin: 09/24/18 06:38 Dose: 5,000 units Lacosamide 100 mg/ Sodium (Chloride) 110 mls @ 110 mls/hr IV.SIG Q12HR [facility] Last Infusion: 09/23/18 21:36 Dose: Infused Fosphenytoin Sodium 100 mgpe/ (Sodium Chloride) 52 mls @ 216 mls/hr IV.SIG Q12HR [facility] Last Infusion: 09/24/18 02:55 Dose: Infused Sodium Chloride (Ns Inj) 1,000 mls @ 150 mls/hr IV.CONT .Q6H40M [facility] Last Admin: 09/24/18 06:39 Dose: 125 mls/hr Fluconazole (Diflucan 100 Mg Premix Bag) 50 mls @ 50 mls/hr IV.SIG Q24H [facility] Last Infusion: 09/23/18 15:07 Dose: Infused Albumin Human (Flexbumin 25% Inj) 100 mls @ 60 mls/hr IV.SIG Q12H [facility] Last Infusion: 09/24/18 03:25 Dose: Infused Insulin Aspart (Novolog Insulin Correctional Sugar Inj) 0 unit SQ Q6HR [facility]; Protocol Last Admin: 09/24/18 07:05 Dose: 15 unit Insulin Detemir (Levemir Inj) 22 unit SQ BID [facility] Last Admin: 09/24/18 02:53 Dose: 22 unit Lactulose (Lactulose Liq) 30 ml PO DAILY PRN PRN Reason: SEVERE CONSITIPATION Levothyroxine Sodium (Synthroid) 75 mcg PO DAILY@0600 [facility] Last Admin: 09/24/18 06:36 Dose: 75 mcg Lorazepam (Ativan Inj) 1 mg IV.PUSH Q1H PRN PRN Reason: Agitation/sedation or Seizure Last Admin: 09/07/18 04:37 Dose: 1 mg Magnesium Oxide (Mag-Ox) 400 mg PO BID [facility] Last Admin: 09/23/18 20:42 Dose: 400 mg Metolazone (Zaroxolyn) 5 mg PO DAILY [facility] Last Admin: 09/16/18 09:18 Dose: 5 mg Metoprolol Tartrate (Lopressor) 50 mg PO BID [facility] Last Admin: 09/23/18 20:43 Dose: 50 mg Miscellaneous Medication () 1 each OROPHARYNG 0000,0400,1200,1600 [facility] Last Admin: 09/24/18 06:37 Dose: 1 each Morphine Sulfate (Morphine Inj) 2 mg IV.PUSH Q2H PRN PRN Reason: PAIN SCALE 6 TO 10 Ondansetron HCl (Zofran Inj) 4 mg IV.PUSH Q6H PRN PRN Reason: NAUSEA OR VOMITING Phenobarbital Sodium (Luminal Inj) 60 mg IV.PUSH Q12HR [facility] Last Admin: 09/23/18 20:40 Dose: 60 mg Pravastatin Sodium (Pravachol) 40 mg PO HS [facility] Last Admin: 09/23/18 20:43 Dose: 40 mg Senna/Docusate Sodium (Janeen-Colace) 1 tab PO BID [facility] Last Admin: 09/23/18 20:43 Dose: 1 tab Sennosides (Senokot) 17.2 mg PO Q12H PRN PRN Reason: Moderate Constipation Sodium Chloride (Ns Flush) 2 ml IV.FLUSH BID [facility] Last Admin: 09/23/18 20:44 Dose: 2 ml Sodium Chloride (Ns Flush) 2 ml IV.FLUSH PRN PRN PRN Reason: FLUSH AFTER USING IV ACCESS Last Admin: 09/22/18 20:25 Dose: 2 ml Sterile Water (Free Water) 200 ml G-TUBE Q6HR [facility] Last Admin: 09/24/18 06:37 Dose: 200 ml Vancomycin HCl (Vancomycin Po) 250 mg PO QID [facility] Last Admin: 09/23/18 20:45 Dose: 250 mg Whey (Beneprotein Powder) 1 packet G-TUBE TID [facility] Last Admin: 09/23/18 18:31 Dose: 1 packet Allergies/Adverse Reactions: Allergies Allergy/AdvReac Type Severity Reaction Status Date / Time digitoxin Allergy Severe Hallucinati Verified 08/19/18 15:46 ons Review of Systems unobtainable due to endotracheal tube, unobtainable due to mental status Physical Exam Vital signs: Vital Signs 09/23/18 08:40 09/23/18 09:00 09/23/18 10:00 Temperature Pulse Rate 94 H 90 Respiratory Rate 16 13 12 Blood Pressure 101/56 L 90/51 L Pulse Oximetry 100 100 100 09/23/18 11:00 09/23/18 11:04 09/23/18 11:30 Temperature Pulse Rate 90 90 90 Respiratory Rate 12 12 11 L Blood Pressure 84/53 L 89/52 L 91/53 L Pulse Oximetry 100 100 100 09/23/18 11:43 09/23/18 12:00 09/23/18 12:30 Temperature 97.6 F Pulse Rate 75 91 H Respiratory Rate 16 12 11 L Blood Pressure 94/55 L 96/52 L Pulse Oximetry 100 100 100 09/23/18 13:00 09/23/18 13:30 09/23/18 14:00 Temperature Pulse Rate 91 H 74 70 Respiratory Rate 14 11 L 12 Blood Pressure 101/55 L 94/53 L 89/53 L Pulse Oximetry 100 100 100 09/23/18 14:30 09/23/18 15:00 09/23/18 15:30 Temperature Pulse Rate 73 76 78 Respiratory Rate 19 10 L 15 Blood Pressure 106/64 116/55 L 113/61 Pulse Oximetry 100 100 100 09/23/18 15:39 09/23/18 16:00 09/23/18 16:30 Temperature 97.5 F L Pulse Rate 82 78 Respiratory Rate 15 13 12 Blood Pressure 113/62 112/67 Pulse Oximetry 100 100 100 09/23/18 17:00 09/23/18 17:10 09/23/18 17:15 Temperature Pulse Rate 79 76 76 Respiratory Rate 8 L 9 L 3 L Blood Pressure 114/61 94/55 L Pulse Oximetry 98 100 100 09/23/18 17:30 09/23/18 17:34 09/23/18 17:45 Temperature Pulse Rate 76 75 76 Respiratory Rate 23 13 14 Blood Pressure 114/54 L Pulse Oximetry 100 100 100 09/23/18 18:00 09/23/18 18:15 09/23/18 18:30 Temperature Pulse Rate 76 79 76 Respiratory Rate 12 13 12 Blood Pressure 105/54 L 115/51 L Pulse Oximetry 100 100 100 09/23/18 18:45 09/23/18 19:00 09/23/18 19:48 Temperature Pulse Rate 78 79 Respiratory Rate 13 13 19 Blood Pressure 99/45 L Pulse Oximetry 100 100 100 09/23/18 20:00 09/23/18 20:30 09/23/18 21:01 Temperature 98.7 F Pulse Rate 78 79 82 Respiratory Rate 17 12 12 Blood Pressure 134/49 L 122/84 Pulse Oximetry 100 100 100 09/23/18 22:00 09/23/18 22:05 09/23/18 23:01 Temperature Pulse Rate 78 79 78 Respiratory Rate 12 13 12 Blood Pressure 98/51 L 122/75 Pulse Oximetry 100 100 100 09/24/18 00:00 09/24/18 00:11 09/24/18 00:12 Temperature 98 F Pulse Rate 79 75 Respiratory Rate 12 15 12 Blood Pressure 98/52 L 101/55 L Pulse Oximetry 100 100 100 09/24/18 00:15 09/24/18 00:30 09/24/18 01:00 Temperature Pulse Rate 75 73 80 Respiratory Rate 12 12 12 Blood Pressure 97/60 L Pulse Oximetry 100 100 100 09/24/18 02:00 09/24/18 03:00 09/24/18 03:48 Temperature Pulse Rate 79 81 Respiratory Rate 16 18 13 Blood Pressure 97/55 L 103/62 Pulse Oximetry 100 100 100 09/24/18 04:00 09/24/18 06:00 09/24/18 07:46 Temperature 98.5 F Pulse Rate 65 80 Respiratory Rate 14 13 Blood Pressure 87/49 L Pulse Oximetry 97 100 Intake & Output 09/23/18 09/24/18 09/24/18 18:59 06:59 18:59 Intake Total 2747 / 2747 2304 / 2304 Output Total 1550 / 1550 1800 / 1800 Balance 1197 / 1197 504 / 504 Weight 120.8 kg Intake: IV 1312 / 1312 1262 / 1262 NS Inj 1,000 ML @ 150 mls/hr IV 1000 / 1000 1000 / 1000 .CONT .Q6H40M [facility] Rx#:[id number] Flexbumin 25% Inj 100 ML @ 60 100 / 100 100 / 100 mls/hr IV.SIG Q12H [facility] Rx#: [id number] Diflucan 100 mg Premix Bag 50 50 / 50 ML @ 50 mls/hr IV.SIG Q24H [facility] Rx#:[id number] Cerebyx Inj 100 MGPE In NS Inj 52 / 52 52 / 52 50 ML @ 216 mls/hr IV.SIG Q12HR [facility] Rx#:[id number] Vimpat Inj 100 MG In NS Inj 100 110 / 110 110 / 110 ML @ 110 mls/hr IV.SIG Q12HR [facility] Rx#:[id number] Tube Feeding 585 / 585 522 / 522 Tube Irrigant 450 / 450 120 / 120 Water Bolus Amount 400 / 400 400 / 400 Output: Stool 200 / 200 200 / 200 Urine Amount (Catheter) 1350 / 1350 1600 / 1600 Indwelling Temp Sensing 1350 / 1350 1600 / 1600 Catheter Other: Date of Last Bowel Movement 09/23/18 09/24/18 Narrative: GENERAL: in NAD, SKIN: Warm and dry. HEAD: Atraumatic. Normocephalic. EYES: Sluggishly reactive ENT: Intubated NECK: Intubated CARDIOVASCULAR: Regular rate and rhythm. RESPIRATORY: Intubated GASTROINTESTINAL: Abdomen soft, non-tender, nondistended. MUSCULOSKELETAL: No obvious deformities. Bilateral lower extremity edema NEUROLOGICAL: Intubated, coma state nonverbal not following, grimace to deep tactile, OU 3-2.5 mm sluggishly reactive no gaze deviation, has corneal reflex OU, no localization PSYCHIATRIC: Intubated, calm - Constitutional no acute distress - Routine HEENT Exam Head: Present: normocephalic - Urinary Catheter Management Indwelling Urethral Catheter Cath placed during this visit: yes, but has since been removed by the nurse Reason for continuing: Decision to DC catheter Insertion date: 09/06/18 Insertion time: 23:00 Removal date: 09/08/18 Removal time: 18:21 Straight Cath placed during this visit: yes, but has since been removed by the nurse Reason for continuing: Decision to DC catheter Insertion date: 09/09/18 Insertion time: 02:20 Removal date: 09/10/18 Removal time: 12:00 Indwelling Temp Sensing Catheter Cath placed during this visit: yes Reason for continuing: Acute urinary retention Insertion date: 09/12/18 Insertion time: 15:30 Objective Laboratory Results - last 24 hr 09/21/18 09/23/18 09/23/18 12:10 08:42 10:00 WBC 28.1 H RBC 2.14 L Hgb 7.5 L Hct 24.4 L MCV 113.9 H D MCH 35.2 H MCHC 30.9 L RDW 18.6 H Plt Count 201 MPV 8.9 Prelim Diff (Auto) Neut % (Auto) Lymph % (Auto) [place] % (Auto) Eos % (Auto) Baso % (Auto) Neut # (Auto) Lymph # (Auto) [place] # (Auto) Eos # (Auto) Baso # (Auto) WBC Differential Seg Neuts % (Manual) Band Neuts % (Manual) Lymphocytes % (Manual) Monocytes % (Manual) Metamyelocytes % (Man) Myelocytes % (Man) Abs Neuts (Manual) Nucleated RBCs/100 WBC Differential Comment Platelet Estimate Platelet Morphology Ovalocytes Sodium 141 Potassium 5.2 H Chloride 107 Carbon Dioxide 21.8 Anion Gap 12 BUN 148 H Creatinine 1.49 H Estimated GFR 46 L POC Glucose Random Glucose 281 H Calcium 7.8 L Magnesium 2.6 H Total Bilirubin 0.5 AST 20 ALT 12 Alkaline Phosphatase 94 Total Protein 5.6 L Albumin 2.3 L Urine Color Yellow Urine Clarity Hazy H Urine pH 5.0 Ur Specific [place] 1.015 Urine Protein Negative Urine Glucose (UA) Negative Urine Ketones Negative Urine Occult Blood Large H Urine Nitrate Negative Urine Bilirubin Negative Urine Urobilinogen Less than 2 Ur Leukocyte Esterase Negative Urine RBC Less than 1 Urine WBC 3 Ur Squamous Epith Cells <1 Urine Bacteria Occasional H Urine Mucus Few H Urine Yeast Moderate H Micro UA Comment Cath-culture ind Urine Culture Comments Cath-cult indicated Phenytoin 14.2 Phenobarbital 28.4 09/23/18 09/23/18 09/24/18 11:57 16:19 00:22 WBC RBC Hgb Hct MCV MCH MCHC RDW Plt Count MPV Prelim Diff (Auto) Neut % (Auto) Lymph % (Auto) [place] % (Auto) Eos % (Auto) Baso % (Auto) Neut # (Auto) Lymph # (Auto) [place] # (Auto) Eos # (Auto) Baso # (Auto) WBC Differential Seg Neuts % (Manual) Band Neuts % (Manual) Lymphocytes % (Manual) Monocytes % (Manual) Metamyelocytes % (Man) Myelocytes % (Man) Abs Neuts (Manual) Nucleated RBCs/100 WBC Differential Comment Platelet Estimate Platelet Morphology Ovalocytes Sodium Potassium Chloride Carbon Dioxide Anion Gap BUN Creatinine Estimated GFR POC Glucose 302 H 367 H 320 H Random Glucose Calcium Magnesium Total Bilirubin AST ALT Alkaline Phosphatase Total Protein Albumin Urine Color Urine Clarity Urine pH Ur Specific [place] Urine Protein Urine Glucose (UA) Urine Ketones Urine Occult Blood Urine Nitrate Urine Bilirubin Urine Urobilinogen Ur Leukocyte Esterase Urine RBC Urine WBC Ur Squamous Epith Cells Urine Bacteria Urine Mucus Urine Yeast Micro UA Comment Urine Culture Comments Phenytoin Phenobarbital 09/24/18 09/24/18 04:08 04:08 WBC 25.4 H RBC 2.28 L Hgb 7.8 L Hct 24.8 L MCV 108.9 H D MCH 34.1 H MCHC 31.3 L RDW 17.9 H Plt Count 230 MPV 10.1 Prelim Diff (Auto) Slide review pending Neut % (Auto) 83.1 H Lymph % (Auto) 3.0 L [place] % (Auto) 11.0 H Eos % (Auto) 2.5 Baso % (Auto) 0.4 Neut # (Auto) 21.1 H Lymph # (Auto) 0.8 L [place] # (Auto) 2.8 H Eos # (Auto) 0.6 H Baso # (Auto) 0.1 WBC Differential Manual diff final Seg Neuts % (Manual) 71 H Band Neuts % (Manual) 10 H Lymphocytes % (Manual) 4 L Monocytes % (Manual) 8 Metamyelocytes % (Man) 2 H Myelocytes % (Man) 5 H Abs Neuts (Manual) 22.4 H Nucleated RBCs/100 WBC 1 H Differential Comment . Platelet Estimate Normal Platelet Morphology Normal Ovalocytes 1+ H Sodium 141 Potassium 4.8 Chloride 109 H Carbon Dioxide 20.1 L Anion Gap 12 BUN 134 H Creatinine 1.32 H Estimated GFR 52 L POC Glucose Random Glucose 292 H Calcium 7.9 L Magnesium Total Bilirubin 0.5 AST 15 ALT 12 Alkaline Phosphatase 100 Total Protein 6.2 L D Albumin 2.7 L Urine Color Urine Clarity Urine pH Ur Specific [place] Urine Protein Urine Glucose (UA) Urine Ketones Urine Occult Blood Urine Nitrate Urine Bilirubin Urine Urobilinogen Ur Leukocyte Esterase Urine RBC Urine WBC Ur Squamous Epith Cells Urine Bacteria Urine Mucus Urine Yeast Micro UA Comment Urine Culture Comments Phenytoin 17.1 Phenobarbital 28.9 Microbiology 09/21/18 12:10 Urine Culture - Final Catheterized Urine Kathy glabrata 09/22/18 13:23 Aerobic Blood Culture - Preliminary Blood - Peripheral No growth in 1 day Anaerobic Blood Culture - Preliminary No growth in 1 day 09/22/18 13:26 Aerobic Blood Culture - Preliminary Blood - Peripheral No growth in 1 day Anaerobic Blood Culture - Preliminary No growth in 1 day Review/Management - Diagnosis (1) Localization-related (focal) (partial) symptomatic epilepsy and epileptic syndromes with complex partial seizures, intractable, with status epilepticus Code(s): G40.211 - Localization-related (focal) (partial) symptomatic epilepsy and epileptic syndromes with complex partial seizures, intractable, with status epilepticus Status: Acute Current Visit: Yes (2) Atrial fibrillation Code(s): I48.91 - Unspecified atrial fibrillation Status: Acute Current Visit: Yes (3) Acute encephalopathy Code(s): G93.40 - Encephalopathy, unspecified Status: Acute Current Visit: Yes (4) ICH (intracerebral hemorrhage) Code(s): I61.9 - Nontraumatic intracerebral hemorrhage, unspecified Status: Acute Current Visit: No - Review/Management Plan: Persistent comatose state. Off Versed MRI brain scan shows evacuation of left frontal hemorrhage perilesional edema There does appear to be increased signal bihemispheric sulcal regions on FLAIR imaging; this was not seen on his previous MRI scan. possibly related to fluid shifts, metabolic, seizure, infectious Progressive hypernatremia and increasing BUN and creatinine level. 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
[2018-09-24] MEDS: Magnesium Oxide 400 MG Tablet PO SCH ×2 (08:22→21:07)
[2018-09-24] MEDS: Beneprotein Powder Packet G-TUBE SCH ×3 (08:23→19:38)
[2018-09-24] MEDS: Lacosamide Inj 100 MG in Sodium Chlor 0.9% Inj 100 ML IV.SIG SCH ×2 (08:25→21:06)
--- NOTE | 2018-09-24 13:29 | P.PNPAL ---
Reason for Visit Reason for visit: a. To assist with evaluation and management of symptoms including: Dyspnea, encephalopathy b. To assist medical decision maker(s) with: better understanding of current medical conditions; weighing benefits/burdens of medical treatment options; making medical treatment decisions. Subjective Subjective/Interval History: Pt seen today to follow up with family meeting regarding goals of medical treatment. notified by nursing family present and wishing to further discuss decisions. Stable overnight. Resection Pathology pending. CBC unchanged. BUN and creatinine slightly improving; 134/1.32. No improvements in neuro assess per nursing. Repeat EEG = Abnormal study consistent with severe encephalopathy. There is occasional sharp activity identified bilaterally, worse in the left temporal area with phase reversal Dual visit w Maurilio Davis APRN. Met w family at length in conference room (son, 2 daughters, son in law, ). Discussion RE prognosis, assessments , tx in place, diagnostics, pending pathology. Review overall prognosis for meaningful functional recover poor given multi organ issues and prolonged hospital course. Family expresses that pt has repeatedly verbalized in the past not wanting prolonged artificial measures without hope for improvement in health. They express he has now been in hospital for 2 weeks and has made no improvement. They feel he is suffering and would not want further invasive measures without a good chance for near full recovery. The request NO escalation in tx today, DNR today, and will want to remove ventilator/tubes tomorrow once additional family has arrived. The adamantly request pain medications be given today as they feel his tongue movement and occasional grimace they see are signs of pain. Remaining Family expected to arrive around 2/230 pm tomorrow, will want to proceed with withdrawal at that time. Patient seen in room multiple family members at bedside. Dual visit with Maurilio Davis APRN. Pt nonresponsive to exam. + spont respirations on [facility] vent. discussed w , critical care, primary Nurse. Exhibit B signed by family and in chart. . Objective Vital Signs: Vital Signs 09/23/18 13:30 09/23/18 14:00 09/23/18 14:30 Temperature Pulse Rate 74 70 73 Respiratory Rate 11 L 12 19 Blood Pressure 94/53 L 89/53 L 106/64 Pulse Oximetry 100 100 100 09/23/18 15:00 09/23/18 15:30 09/23/18 15:39 Temperature Pulse Rate 76 78 Respiratory Rate 10 L 15 15 Blood Pressure 116/55 L 113/61 Pulse Oximetry 100 100 100 09/23/18 16:00 09/23/18 16:30 09/23/18 17:00 Temperature 97.5 F L Pulse Rate 82 78 79 Respiratory Rate 13 12 8 L Blood Pressure 113/62 112/67 114/61 Pulse Oximetry 100 100 98 09/23/18 17:10 09/23/18 17:15 09/23/18 17:30 Temperature Pulse Rate 76 76 76 Respiratory Rate 9 L 3 L 23 Blood Pressure 94/55 L Pulse Oximetry 100 100 100 09/23/18 17:34 09/23/18 17:45 09/23/18 18:00 Temperature Pulse Rate 75 76 76 Respiratory Rate 13 14 12 Blood Pressure 114/54 L 105/54 L Pulse Oximetry 100 100 100 09/23/18 18:15 09/23/18 18:30 09/23/18 18:45 Temperature Pulse Rate 79 76 78 Respiratory Rate 13 12 13 Blood Pressure 115/51 L Pulse Oximetry 100 100 100 09/23/18 19:00 09/23/18 19:48 09/23/18 20:00 Temperature 98.7 F Pulse Rate 79 78 Respiratory Rate 13 19 17 Blood Pressure 99/45 L 134/49 L Pulse Oximetry 100 100 100 09/23/18 20:30 09/23/18 21:01 09/23/18 22:00 Temperature Pulse Rate 79 82 78 Respiratory Rate 12 12 12 Blood Pressure 122/84 98/51 L Pulse Oximetry 100 100 100 09/23/18 22:05 09/23/18 23:01 09/24/18 00:00 Temperature 98 F Pulse Rate 79 78 79 Respiratory Rate 13 12 12 Blood Pressure 122/75 98/52 L Pulse Oximetry 100 100 100 09/24/18 00:11 09/24/18 00:12 09/24/18 00:15 Temperature Pulse Rate 75 75 Respiratory Rate 15 12 12 Blood Pressure 101/55 L Pulse Oximetry 100 100 100 09/24/18 00:30 09/24/18 01:00 09/24/18 02:00 Temperature Pulse Rate 73 80 79 Respiratory Rate 12 12 16 Blood Pressure 97/60 L 97/55 L Pulse Oximetry 100 100 100 09/24/18 03:00 09/24/18 03:48 09/24/18 04:00 Temperature 98.5 F Pulse Rate 81 65 Respiratory Rate 18 13 14 Blood Pressure 103/62 87/49 L Pulse Oximetry 100 100 97 09/24/18 06:00 09/24/18 07:00 09/24/18 07:01 Temperature Pulse Rate 80 85 86 Respiratory Rate 15 15 Blood Pressure 107/58 L Pulse Oximetry 100 100 09/24/18 07:46 09/24/18 08:00 09/24/18 09:00 Temperature 97.7 F Pulse Rate 90 85 Respiratory Rate 13 19 17 Blood Pressure 121/68 Pulse Oximetry 100 100 100 09/24/18 09:01 09/24/18 11:23 Temperature Pulse Rate 84 Respiratory Rate 16 22 Blood Pressure 120/61 Pulse Oximetry 100 100 Intake & Output 09/23/18 09/24/18 09/24/18 18:59 06:59 18:59 Intake Total 2747 / 2747 2304 / 2304 1162 / 1162 Output Total 1550 / 1550 1800 / 1800 Balance 1197 / 1197 504 / 504 1162 / 1162 Weight 120.8 kg Intake: IV 1312 / 1312 1262 / 1262 1162 / 1162 NS Inj 1,000 ML @ 150 mls/hr IV 1000 / 1000 1000 / 1000 1000 / 1000 .CONT .Q6H40M MAGALY Rx#:[id number] Flexbumin 25% Inj 100 ML @ 60 100 / 100 100 / 100 mls/hr IV.SIG Q12H MAGALY Rx#: [id number] Diflucan 100 mg Premix Bag 50 50 / 50 ML @ 50 mls/hr IV.SIG Q24H MAGALY Rx#:[id number] Cerebyx Inj 100 MGPE In NS Inj 52 / 52 52 / 52 52 / 52 50 ML @ 216 mls/hr IV.SIG Q12HR MAGALY Rx#:[id number] Vimpat Inj 100 MG In NS Inj 100 110 / 110 110 / 110 110 / 110 ML @ 110 mls/hr IV.SIG Q12HR MAGALY Rx#:[id number] Tube Feeding 585 / 585 522 / 522 Tube Irrigant 450 / 450 120 / 120 Water Bolus Amount 400 / 400 400 / 400 Output: Stool 200 / 200 200 / 200 Urine Amount (Catheter) 1350 / 1350 1600 / 1600 Indwelling Temp Sensing 1350 / 1350 1600 / 1600 Catheter Other: Date of Last Bowel Movement 09/23/18 09/24/18 Physical Exam: CONSTITUTIONAL/GENERAL: This is an adequately nourished patient, nonresponsive to exam TUBES/LINES/DRAINS: Peripheral iv bilateral upper extremity, Fields catheter, rectal drainage, ET tube, OG tube, soft restraints bilaterally SKIN: No jaundice, rashes, or lesions. No wounds seen anteriorly. Well-healed midline abdominal scar. Well-healed sternal scar. Well-healed right knee scar few scattered ecchymosis and skin tears bilateral arms. Some serous drainage from arms. Skin temperature warm and dry. EYES: Pupils equal and round and reactive, 3 mm. slight blink to threat. + corneal. No scleral icterus. No injection or drainage. Fundi not examined. ENT: Nose without bleeding or purulent drainage. limited oropharynx exam secondary to tubes, no evident lesions or exudates. CARDIOVASCULAR: Irregular heart rate. Heart sounds difficult to auscultate over breath sounds. Peripheral pulses faintly palpable. Significant peripheral edema. RESPIRATORY/CHEST: Symmetric, unlabored respirations via ET tube to mechanical vent. Coarse scattered rhonchi . Breath sounds equal bilaterally. GASTROINTESTINAL: Abdomen soft, obese, unable to determine tenderness, nondistended. No hepato-splenomegaly, or palpable masses. Bowel sounds hypoactive. GENITOURINARY: Without palpable bladder distension. Fields catheter in place.+ Scrotal edema. MUSCULOSKELETAL: Extremities without clubbing, cyanosis. No joint effusion noted. 2+ edema all 4 extremities. NEUROLOGICAL: not on sedation. No eye opening. +corneal, + pupillary response. No withdrawal to pain. Very weak/slight gag reflex with ET tube stimuli. + thrusting motion with tongue to left with pain stimuli. PSYCHIATRIC: Limited assessment secondary to clinical condition no evident distress Diagnostic Tests Laboratory: Laboratory Results - last 72 hr 09/21/18 09/21/18 09/21/18 12:10 12:10 17:27 WBC RBC Hgb Hct MCV MCH MCHC RDW Plt Count MPV Prelim Diff (Auto) Neut % (Auto) Lymph % (Auto) [place] % (Auto) Eos % (Auto) Baso % (Auto) Neut # (Auto) Lymph # (Auto) [place] # (Auto) Eos # (Auto) Baso # (Auto) WBC Differential Seg Neuts % (Manual) Band Neuts % (Manual) Lymphocytes % (Manual) Monocytes % (Manual) Metamyelocytes % (Man) Myelocytes % (Man) Abs Neuts (Manual) Nucleated RBCs/100 WBC Differential Comment Platelet Estimate Platelet Morphology Ovalocytes Sodium Potassium Chloride Carbon Dioxide Anion Gap BUN Creatinine Estimated GFR POC Glucose 260 H Random Glucose Calcium Phosphorus Magnesium Total Bilirubin AST ALT Alkaline Phosphatase Total Protein Albumin Urine Color Yellow Urine Clarity Hazy H Urine pH 5.0 Ur Specific [place] 1.015 Urine Protein Negative Urine Glucose (UA) Negative Urine Ketones Negative Urine Occult Blood Large H Urine Nitrate Negative Urine Bilirubin Negative Urine Urobilinogen Less than 2 Ur Leukocyte Esterase Negative Urine RBC Less than 1 Urine WBC 3 Ur Squamous Epith Cells <1 Urine Bacteria Occasional H Urine Mucus Few H Urine Yeast Moderate H Micro UA Comment Cath-culture ind Ur Microscopic Review Not Reportable Urine Culture Comments Cath-cult indicated Ur Microalbumin mg/L 28 U Creat (Microalbumin) 37.0 Microalb/Creat Ratio 77 H Stl C.difficile DNA Amp St C. diff Tox Epid 027 Phenytoin Phenobarbital 09/22/18 09/22/18 09/22/18 04:37 04:37 06:46 WBC 27.9 H RBC 2.22 L Hgb 7.8 L Hct 23.9 L MCV 107.4 H MCH 35.3 H MCHC 32.8 RDW 17.0 Plt Count 199 MPV 9.9 Prelim Diff (Auto) Neut % (Auto) Lymph % (Auto) [place] % (Auto) Eos % (Auto) Baso % (Auto) Neut # (Auto) Lymph # (Auto) [place] # (Auto) Eos # (Auto) Baso # (Auto) WBC Differential Seg Neuts % (Manual) Band Neuts % (Manual) Lymphocytes % (Manual) Monocytes % (Manual) Metamyelocytes % (Man) Myelocytes % (Man) Abs Neuts (Manual) Nucleated RBCs/100 WBC Differential Comment Platelet Estimate Platelet Morphology Ovalocytes Sodium 139 Potassium 5.8 H Chloride 106 Carbon Dioxide 21.2 Anion Gap 12 BUN 153 H Creatinine 1.53 H Estimated GFR 44 L POC Glucose 284 H Random Glucose 207 H Calcium 7.7 L Phosphorus 4.8 Magnesium 2.7 H Total Bilirubin AST ALT Alkaline Phosphatase Total Protein Albumin Urine Color Urine Clarity Urine pH Ur Specific [place] Urine Protein Urine Glucose (UA) Urine Ketones Urine Occult Blood Urine Nitrate Urine Bilirubin Urine Urobilinogen Ur Leukocyte Esterase Urine RBC Urine WBC Ur Squamous Epith Cells Urine Bacteria Urine Mucus Urine Yeast Micro UA Comment Ur Microscopic Review Urine Culture Comments Ur Microalbumin mg/L U Creat (Microalbumin) Microalb/Creat Ratio Stl C.difficile DNA Amp St C. diff Tox Epid 027 Phenytoin 16.4 Phenobarbital 29.4 09/22/18 09/22/18 09/22/18 11:19 13:26 17:52 WBC RBC Hgb 7.7 L Hct 24.3 L MCV MCH MCHC RDW Plt Count MPV Prelim Diff (Auto) Neut % (Auto) Lymph % (Auto) [place] % (Auto) Eos % (Auto) Baso % (Auto) Neut # (Auto) Lymph # (Auto) [place] # (Auto) Eos # (Auto) Baso # (Auto) WBC Differential Seg Neuts % (Manual) Band Neuts % (Manual) Lymphocytes % (Manual) Monocytes % (Manual) Metamyelocytes % (Man) Myelocytes % (Man) Abs Neuts (Manual) Nucleated RBCs/100 WBC Differential Comment Platelet Estimate Platelet Morphology Ovalocytes Sodium Potassium Chloride Carbon Dioxide Anion Gap BUN Creatinine Estimated GFR POC Glucose 245 H 294 H Random Glucose Calcium Phosphorus Magnesium Total Bilirubin AST ALT Alkaline Phosphatase Total Protein Albumin Urine Color Urine Clarity Urine pH Ur Specific [place] Urine Protein Urine Glucose (UA) Urine Ketones Urine Occult Blood Urine Nitrate Urine Bilirubin Urine Urobilinogen Ur Leukocyte Esterase Urine RBC Urine WBC Ur Squamous Epith Cells Urine Bacteria Urine Mucus Urine Yeast Micro UA Comment Ur Microscopic Review Urine Culture Comments Ur Microalbumin mg/L U Creat (Microalbumin) Microalb/Creat Ratio Stl C.difficile DNA Amp St C. diff Tox Epid 027 Phenytoin Phenobarbital 09/22/18 09/22/18 09/23/18 17:55 23:48 05:29 WBC RBC Hgb Hct MCV MCH MCHC RDW Plt Count MPV Prelim Diff (Auto) Neut % (Auto) Lymph % (Auto) [place] % (Auto) Eos % (Auto) Baso % (Auto) Neut # (Auto) Lymph # (Auto) [place] # (Auto) Eos # (Auto) Baso # (Auto) WBC Differential Seg Neuts % (Manual) Band Neuts % (Manual) Lymphocytes % (Manual) Monocytes % (Manual) Metamyelocytes % (Man) Myelocytes % (Man) Abs Neuts (Manual) Nucleated RBCs/100 WBC Differential Comment Platelet Estimate Platelet Morphology Ovalocytes Sodium Potassium Chloride Carbon Dioxide Anion Gap BUN Creatinine Estimated GFR POC Glucose 271 H 273 H 241 H Random Glucose Calcium Phosphorus Magnesium Total Bilirubin AST ALT Alkaline Phosphatase Total Protein Albumin Urine Color Urine Clarity Urine pH Ur Specific [place] Urine Protein Urine Glucose (UA) Urine Ketones Urine Occult Blood Urine Nitrate Urine Bilirubin Urine Urobilinogen Ur Leukocyte Esterase Urine RBC Urine WBC Ur Squamous Epith Cells Urine Bacteria Urine Mucus Urine Yeast Micro UA Comment Ur Microscopic Review Urine Culture Comments Ur Microalbumin mg/L U Creat (Microalbumin) Microalb/Creat Ratio Stl C.difficile DNA Amp St C. diff Tox Epid 027 Phenytoin Phenobarbital 09/23/18 09/23/18 09/23/18 08:42 10:00 11:57 WBC 28.1 H RBC 2.14 L Hgb 7.5 L Hct 24.4 L MCV 113.9 H D MCH 35.2 H MCHC 30.9 L RDW 18.6 H Plt Count 201 MPV 8.9 Prelim Diff (Auto) Neut % (Auto) Lymph % (Auto) [place] % (Auto) Eos % (Auto) Baso % (Auto) Neut # (Auto) Lymph # (Auto) [place] # (Auto) Eos # (Auto) Baso # (Auto) WBC Differential Seg Neuts % (Manual) Band Neuts % (Manual) Lymphocytes % (Manual) Monocytes % (Manual) Metamyelocytes % (Man) Myelocytes % (Man) Abs Neuts (Manual) Nucleated RBCs/100 WBC Differential Comment Platelet Estimate Platelet Morphology Ovalocytes Sodium 141 Potassium 5.2 H Chloride 107 Carbon Dioxide 21.8 Anion Gap 12 BUN 148 H Creatinine 1.49 H Estimated GFR 46 L POC Glucose 302 H Random Glucose 281 H Calcium 7.8 L Phosphorus Magnesium 2.6 H Total Bilirubin 0.5 AST 20 ALT 12 Alkaline Phosphatase 94 Total Protein 5.6 L Albumin 2.3 L Urine Color Urine Clarity Urine pH Ur Specific [place] Urine Protein Urine Glucose (UA) Urine Ketones Urine Occult Blood Urine Nitrate Urine Bilirubin Urine Urobilinogen Ur Leukocyte Esterase Urine RBC Urine WBC Ur Squamous Epith Cells Urine Bacteria Urine Mucus Urine Yeast Micro UA Comment Ur Microscopic Review Urine Culture Comments Ur Microalbumin mg/L U Creat (Microalbumin) Microalb/Creat Ratio Stl C.difficile DNA Amp St C. diff Tox Epid 027 Phenytoin 14.2 Phenobarbital 28.4 09/23/18 09/24/18 09/24/18 16:19 00:22 04:08 WBC RBC Hgb Hct MCV MCH MCHC RDW Plt Count MPV Prelim Diff (Auto) Neut % (Auto) Lymph % (Auto) [place] % (Auto) Eos % (Auto) Baso % (Auto) Neut # (Auto) Lymph # (Auto) [place] # (Auto) Eos # (Auto) Baso # (Auto) WBC Differential Seg Neuts % (Manual) Band Neuts % (Manual) Lymphocytes % (Manual) Monocytes % (Manual) Metamyelocytes % (Man) Myelocytes % (Man) Abs Neuts (Manual) Nucleated RBCs/100 WBC Differential Comment Platelet Estimate Platelet Morphology Ovalocytes Sodium 141 Potassium 4.8 Chloride 109 H Carbon Dioxide 20.1 L Anion Gap 12 BUN 134 H Creatinine 1.32 H Estimated GFR 52 L POC Glucose 367 H 320 H Random Glucose 292 H Calcium 7.9 L Phosphorus Magnesium Total Bilirubin 0.5 AST 15 ALT 12 Alkaline Phosphatase 100 Total Protein 6.2 L D Albumin 2.7 L Urine Color Urine Clarity Urine pH Ur Specific [place] Urine Protein Urine Glucose (UA) Urine Ketones Urine Occult Blood Urine Nitrate Urine Bilirubin Urine Urobilinogen Ur Leukocyte Esterase Urine RBC Urine WBC Ur Squamous Epith Cells Urine Bacteria Urine Mucus Urine Yeast Micro UA Comment Ur Microscopic Review Urine Culture Comments Ur Microalbumin mg/L U Creat (Microalbumin) Microalb/Creat Ratio Stl C.difficile DNA Amp St C. diff Tox Epid 027 Phenytoin 17.1 Phenobarbital 28.9 09/24/18 09/24/18 09/24/18 04:08 09:12 12:22 WBC 25.4 H RBC 2.28 L Hgb 7.8 L Hct 24.8 L MCV 108.9 H D MCH 34.1 H MCHC 31.3 L RDW 17.9 H Plt Count 230 MPV 10.1 Prelim Diff (Auto) Slide review pending Neut % (Auto) 83.1 H Lymph % (Auto) 3.0 L [place] % (Auto) 11.0 H Eos % (Auto) 2.5 Baso % (Auto) 0.4 Neut # (Auto) 21.1 H Lymph # (Auto) 0.8 L [place] # (Auto) 2.8 H Eos # (Auto) 0.6 H Baso # (Auto) 0.1 WBC Differential Manual diff final Seg Neuts % (Manual) 71 H Band Neuts % (Manual) 10 H Lymphocytes % (Manual) 4 L Monocytes % (Manual) 8 Metamyelocytes % (Man) 2 H Myelocytes % (Man) 5 H Abs Neuts (Manual) 22.4 H Nucleated RBCs/100 WBC 1 H Differential Comment . Platelet Estimate Normal Platelet Morphology Normal Ovalocytes 1+ H Sodium Potassium Chloride Carbon Dioxide Anion Gap BUN Creatinine Estimated GFR POC Glucose 254 H Random Glucose Calcium Phosphorus Magnesium Total Bilirubin AST ALT Alkaline Phosphatase Total Protein Albumin Urine Color Urine Clarity Urine pH Ur Specific [place] Urine Protein Urine Glucose (UA) Urine Ketones Urine Occult Blood Urine Nitrate Urine Bilirubin Urine Urobilinogen Ur Leukocyte Esterase Urine RBC Urine WBC Ur Squamous Epith Cells Urine Bacteria Urine Mucus Urine Yeast Micro UA Comment Ur Microscopic Review Urine Culture Comments Ur Microalbumin mg/L U Creat (Microalbumin) Microalb/Creat Ratio Stl C.difficile DNA Amp Negative St C. diff Tox Epid 027 Negative Phenytoin Phenobarbital Result Diagrams: 09/24/18 04:08 09/24/18 04:08 Microbiology: Microbiology 09/24/18 09:12 Stool Occult Blood (ADAN) - Final Stool Hemoccult negative 09/22/18 13:23 Aerobic Blood Culture - Preliminary Blood - Peripheral No growth in 2 days Anaerobic Blood Culture - Preliminary No growth in 2 days 09/22/18 13:26 Aerobic Blood Culture - Preliminary Blood - Peripheral No growth in 2 days Anaerobic Blood Culture - Preliminary gram positive cocci 09/23/18 15:30 Gram Stain - Final Sputum - Endotracheal 09/21/18 12:10 Urine Culture - Final Catheterized Urine Kathy glabrata Imaging: Impressions Chest X-Ray 09/23/18 06:00 CONCLUSION: Some interval worsening in aeration Assessment and Plan - Disease Oriented Problem List (1) Localization-related (focal) (partial) symptomatic epilepsy and epileptic syndromes with complex partial seizures, intractable, with status epilepticus (2) Atrial fibrillation (3) Acute encephalopathy (4) Hyperkalemia (5) Chronic kidney disease (CKD) stage G3a/A1, moderately decreased glomerular filtration rate (GFR) between 45-59 mL/min/1.73 square meter and albuminuria creatinine ratio less than 30 mg/g (6) C. difficile diarrhea (7) Status post craniotomy (8) Mitral valve regurgitation (9) Pulmonary hypertension (10) Acute respiratory failure with hypoxemia (11) Diabetes Pertinent Non-Medical Issues: Psychosocial: . Has adult children Spiritual: Legal:Pt unable to participate in decision making, not clear he will regain ability. Per [place] statutes would be approp legal proxy. May have advanced directives/HCS. Reported may have early dementia process. Unless she is deemed incapacitated, might recommend shared decision making with her and other family members Ethical issues impacting care: no ethical issues identified Important Contacts: Ludy Moise [phone] Grandson Ru [phone] . Prognosis: Admitted for seizure activity. Continue to have refractory seizure activity despite antiepileptics. Status post resection per neurosurgery. Neurological status not improving despite multiple interventions. Given very poor neuro status and assessments thus far if does not make significant improvement overall prognosis for meaningful recovery appears poor. Code Status: Full Code Plan: Legal decision maker:Pt unable to participate in decision making, not clear he will regain ability. Per [place] statutes would be approp legal proxy. May have advanced directives/HCS. Reported may have early dementia process. Unless she is deemed incapacitated, might recommend shared decision making with her and other family members Goals:Family elects NO ESCALATION OF [place], planned for compassionate withdrawal of ventilator tomorrow 09/25/18, requests pain medication be started today for possible pain/discomfort . and all of adult children to sign exhibit b, placed in chart. Exhibit C also in chart. CODE STATUS:full code SYMPTOMS: --dyspnea= intubated. Currently breathing comfortable on mech vent no sedation. Unable to medically wean 2/2 neuro status, seizures. -- seizures= hx of fall, SDH, this admit presents w seizure activity. Requiring multiple anti-epileptics per neuro, still w sz activity. s/p resection per neurosurgery, PATH pending. --pain- potential sources would include bedbound status, recent brain surgery. currently minimal responsive to any pain stimuli; any sedating agents had been held for neuro assessments. Family requests NO escalation and comfort meds be added for what they feel are signs of pain . PRN hydromorphone added today. -- encephalopathy- hx of fall, SDH, this admit presents w seizure activity. Requiring multiple anti-epileptics per neuro, still w sz activity. s/p resection per neurosurgery, PATH pending. + renal failure, may be compounding encephalopathy?, may require Hemodialysis? Palliative care will continue to follow during hospital course as condition evolves, to assist patient/decision-maker with understanding of medical conditions, weighing benefits/burdens of treatment options, for clarification of goals of treatment. Additionally will assist with any symptoms of palliative concern Attestation Attestation: To help prompt me to consider important information that might be impacting today's encounter and assessment, information from prior notes written by myself or my colleagues may have been "brought forward" into today's note. My signature on this note, however, is an attestation that I personally performed the exam, history, and/or decision-making noted today, and, unless otherwise indicated, the interactions with patient, family, and staff as well as the review of records all occurred today. I also attest that the listed assessment and stated plan reflect my best clinical judgment today based on the combination of historical information, prior notes, and today's exam/ interactions. When time spent is documented, it refers only to time spent today by the signer, or if indicated, combined time spent today by collaborating physician/nurse practitioner.
[2018-09-24] MEDS ORDERED: HYDROmorphone PF Inj 1 MG/ML Ampul IV.PUSH PRN (13:30)
--- NOTE | 2018-09-24 14:16 | MG ---
cc: Harvey Wang MD, PhD TEST NUMBER: [id number]. TECHNIQUE: A 17-channel EEG. DESCRIPTION: The background rhythm shows generalized slowing delta frequency, roughly 3 Hz. Occasional sharp activity is identified mainly over the left temporal area. There is some phase reversal as well. It also involves the parietal area, as well, at times periodic, but very rare. Most of the tracing is slowing in the delta range. INTERPRETATION: Abnormal study consistent with severe encephalopathy. There is occasional sharp activity identified bilaterally, worse in the left temporal area with phase reversal. Harvey Wang MD, PhD BHARTI/rh , 02:01 PM , 02:07 PM
--- NOTE | 2018-09-24 14:44 | P.PNCC ---
Subjective Subjective Remarks/Hospital Course: 69-year-old male with a history of recent ICH, and seizure disorder presents from home after he was seizing. Called paramedics arrived to find him seizing in the setting they gave him 2 of Versed to break his seizure after they establish IV access patient then in route has another seizure and they gave him 2 more Versed. The patient was a postictal voiding episode and became in respiratory distress needed to be intubated by the paramedics. They intubated him and arrived to emergency department sedated intubated and possibly seizing with contraction of the right hand. He was started on a propofol drip to keep him sedated as well as seizure-free and he has been admitted to the ICU. 09/07: No more seizure activity. Weaned to propofol 5 mics per kilogram per minute. AED restarted. CAT scan shows diminished size of left frontal lobe hematoma compared to prior study. 09/08: No more obvious seizure activity. Patient withdraws limbs aside from left foot. He grimaces to noxious stimulation. Breathes spontaneously over the ventilator. We need to confirm that he is indeed stopped seizing. Cerebyx added to Keppra. 09/09: Focus of left frontal intermittent seizure activity persists on 09/08. Still on Versed drip infusion and mechanical ventilation. Neurology service continues to adjust AED regimen. MRI yesterday without other significant injury aside from the known left frontal hematoma. 09/10: Focal area of intermittent seizure frontal lobe persisted yesterday on EEG. AED doses being adjusted. Urine output marginal, will reinstitute loop diuretic along with metolazone. Underlying cardiac function impaired at baseline with severe mitral and tricuspid regurgitation along with pulmonary hypertension as expected. Most recent echo is about a month ago. 09/11: Continued left fronto temporal seizure activity despite 3 AEDs. Juxtaposition of this 2 cm maturing left frontal lobe hematoma to the seizure activity is probably not coincidental. I have discussed with the family the concept of excising the mature hematoma in an attempt to attenuate the seizure activity. 09/12: Patient required versed yesterday for elevated airway pressures possibly related to seizure activity. No problems after Versed bolus and restarted. Plan is for resection of the seizure substrate in the left frontal lobe today. 09/13: Status post resection of left frontal lobe hemorrhagic mass yesterday. Return from OR on mechanical ventilation. Stable hemodynamics. Patient remains neurologically unstable with refractory seizures for which he underwent mass resection. 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 All sedation was stopped late Saturday and we are waiting for the gentleman to wake up. By cardiac echo obtained during his last admission he has both severe mitral and tricuspid regurgitation. He tends to retain fluid and is been chronically on Bumex 2 mg and metolazone 5 mg daily. Renal function tests indicate a prerenal type azotemia. It is unlikely that this represents too little intravascular volume because his weight is up and he has peripheral edema in his lower extremities. I have added albumin in an attempt to mobilize some fluid. Fortunately gas exchange has been good. 09/15: off sedation x 48h. still not following commands. very poor neuro exam. GCS 3. ? weak flicker of movement in the right upper extremity (unclear if posturing or withdraw) and slight grimace to painful stimuli. otherwise, no movement in any extremity. +cough. + corneals. pupils 2mm equal and reactive. EEG ordered. 09/16: remains off sedation for days. now worsening exam: no grimace at all to painful stimuli. GCS remains 3. EEG persistently poor, but no overt seizures. MRI ordered today without new ischemic area. anti-epileptic levels therapeutic. discussed with Dr. Bonilla: if no improvements by the end of the week, prognosis is grim at best. discussed this together at length with the family. states she does knows that he would not want trach/peg and would not want to live if he was not awake and off machines. 09/17: Elevated BUN likely contributing to his somnolence. Considering the extended period of time he was on moderate to high dose Versed it may well take many more days for that to clear as well. I am forced to hydrate him knowing that it will increase his peripheral edema. But were going to have to normalize his urea nitrogen before we can assume he is encephalopathic for some other reason. 09/18: Creatinine decline but BUN has increased again. Patient is being aggressively hydrated with hypotonic solution but were having a hard time keeping up with the was moderate diuresis from the hyperglycemia. Once again will increase the long-acting insulin coverage. Certainly elevated sodium and contributing to his somnolence. Decadron is making glucose control even harder. Underlying all this is heart failure and his ongoing retention of fluid , complicating all of these issues. 09/19: Minimal improvement and osmolality and BUN. Persistent white blood cell count elevation. No change in neurologic status. Family wishes to continue pursuing aggressively all avenues. Presently waiting for benzodiazepines to wear off. 09/20: Aside from some mouth movements there is no real increase in continuous activity nor withdrawal. Electrolytes require correction today after diuretics changed for the treatment of chronic heart failure. 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 No movement nor withdrawal today. 6 days since all all sedation and analgesia stopped. BUN 141 likely contributing to somnolence. Patient is well hydrated with greater than 1500 mL's of urine per day yet prerenal pattern persists. IV has been running at 150 mL's per hour for many days now and azotemia worsens. Possible component of osmotic diuresis secondary to hyperglycemia? In my discussions with family we have all decided if patient does not wake up more after 7 days without sedation, and normalized BUN, then recovery from this episode of status seizures is a lot less likely. 09/22: Remains unresponsive severely encephalopathy. WBC count increasing 20 7K today. Infectious disease consulted. Also patient's BUN/creatinine increasing BUN is 153 with a creatinine 1.5. D/W Neurology Dr. Bonilla, re nephrology consult for possible dialysis. He is recommending consulting palliative care. As the pathology may show glioma 09/23: Remains unresponsive severely encephalopathic. Remains orally intubated on mechanical ventilation. Tolerating tube feeds. 09/24: Remains intubated not on any sedation. Repeat EEG shows severe encephalopathy, occasional sharp activities bilaterally worse than left temporal. Path still pending. Sputum culture growing GNR Objective Vital Signs / I&O: Vital Signs 09/23/18 15:00 09/23/18 15:30 09/23/18 15:39 Temperature Pulse Rate 76 78 Respiratory Rate 10 L 15 15 Blood Pressure 116/55 L 113/61 Pulse Oximetry 100 100 100 09/23/18 16:00 09/23/18 16:30 09/23/18 17:00 Temperature 97.5 F L Pulse Rate 82 78 79 Respiratory Rate 13 12 8 L Blood Pressure 113/62 112/67 114/61 Pulse Oximetry 100 100 98 11/06/18 17:10 09/23/18 17:15 09/23/18 17:30 Temperature Pulse Rate 76 76 76 Respiratory Rate 9 L 3 L 23 Blood Pressure 94/55 L Pulse Oximetry 100 100 100 09/23/18 17:34 09/23/18 17:45 09/23/18 18:00 Temperature Pulse Rate 75 76 76 Respiratory Rate 13 14 12 Blood Pressure 114/54 L 105/54 L Pulse Oximetry 100 100 100 09/23/18 18:15 09/23/18 18:30 09/23/18 18:45 Temperature Pulse Rate 79 76 78 Respiratory Rate 13 12 13 Blood Pressure 115/51 L Pulse Oximetry 100 100 100 09/23/18 19:00 09/23/18 19:48 09/23/18 20:00 Temperature 98.7 F Pulse Rate 79 78 Respiratory Rate 13 19 17 Blood Pressure 99/45 L 134/49 L Pulse Oximetry 100 100 100 09/23/18 20:30 09/23/18 21:01 09/23/18 22:00 Temperature Pulse Rate 79 82 78 Respiratory Rate 12 12 12 Blood Pressure 122/84 98/51 L Pulse Oximetry 100 100 100 09/23/18 22:05 09/23/18 23:01 09/24/18 00:00 Temperature 98 F Pulse Rate 79 78 79 Respiratory Rate 13 12 12 Blood Pressure 122/75 98/52 L Pulse Oximetry 100 100 100 09/24/18 00:11 09/24/18 00:12 09/24/18 00:15 Temperature Pulse Rate 75 75 Respiratory Rate 15 12 12 Blood Pressure 101/55 L Pulse Oximetry 100 100 100 09/24/18 00:30 09/24/18 01:00 09/24/18 02:00 Temperature Pulse Rate 73 80 79 Respiratory Rate 12 12 16 Blood Pressure 97/60 L 97/55 L Pulse Oximetry 100 100 100 09/24/18 03:00 09/24/18 03:48 09/24/18 04:00 Temperature 98.5 F Pulse Rate 81 65 Respiratory Rate 18 13 14 Blood Pressure 103/62 87/49 L Pulse Oximetry 100 100 97 09/24/18 06:00 09/24/18 07:00 09/24/18 07:01 Temperature Pulse Rate 80 85 86 Respiratory Rate 15 15 Blood Pressure 107/58 L Pulse Oximetry 100 100 09/24/18 07:46 09/24/18 08:00 09/24/18 09:00 Temperature 97.7 F Pulse Rate 90 85 Respiratory Rate 13 19 17 Blood Pressure 121/68 Pulse Oximetry 100 100 100 09/24/18 09:01 09/24/18 11:23 Temperature Pulse Rate 84 Respiratory Rate 16 22 Blood Pressure 120/61 Pulse Oximetry 100 100 Intake & Output 09/23/18 09/24/18 09/24/18 18:59 06:59 18:59 Intake Total 2747 / 2747 2304 / 2304 1162 / 1162 Output Total 1550 / 1550 1800 / 1800 Balance 1197 / 1197 504 / 504 1162 / 1162 Weight 120.8 kg Intake: IV 1312 / 1312 1262 / 1262 1162 / 1162 NS Inj 1,000 ML @ 150 mls/hr IV 1000 / 1000 1000 / 1000 1000 / 1000 .CONT .Q6H40M [facility]AL[facility] Rx#:[id number] Flexbumin 25% Inj 100 ML @ 60 100 / 100 100 / 100 mls/hr IV.SIG Q12H [facility]ALY Rx#: [id number] Diflucan 100 mg Premix Bag 50 50 / 50 ML @ 50 mls/hr IV.SIG Q24H [facility]ALY Rx#:[id number] Cerebyx Inj 100 MGPE In NS Inj 52 / 52 52 / 52 52 / 52 50 ML @ 216 mls/hr IV.SIG Q12HR [facility]ALY Rx#:[id number] Vimpat Inj 100 MG In NS Inj 100 110 / 110 110 / 110 110 / 110 ML @ 110 mls/hr IV.SIG Q12HR [facility]ALY Rx#:[id number] Tube Feeding 585 / 585 522 / 522 Tube Irrigant 450 / 450 120 / 120 Water Bolus Amount 400 / 400 400 / 400 Output: Stool 200 / 200 200 / 200 Urine Amount (Catheter) 1350 / 1350 1600 / 1600 Indwelling Temp Sensing 1350 / 1350 1600 / 1600 Catheter Other: Date of Last Bowel Movement 09/23/18 09/24/18 Result Diagrams: 09/24/18 04:08 09/24/18 04:08 Objective Remarks: gen: elderly male, in bed on ventilator heent: Incision clean dry neck: no jvd. trachea midline. Orally intubated chest: PRVC. equal chest rise. fio2 40%, nielson clear. Now tolerating CPAP cv: normal rate, regular rhythm. sinus, no JVD. abd: soft, nontender, nondistended. no guarding. Bowel sounds active extr: Some thigh edema. distal pulses 2+. neuro: GCS 3. no movement at all today to deep stimulation. Some occasional mouth and jaw movement. Breathes comfortably on spontaneous breathing trials with good respiratory drive. Assessment and Plan - Assessment and Plan Plan: Assessment: 77yM presented in status epilepticus with frontal mass now s/p craniotomy and mass resection with persistently very poor neurologic exam. Remains critically ill today, off pathway, with persistent encephalopathy. the longer we go without neurologic improvement, the more grim the prognosis. 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 Final path from sent out pending -IV Keppra. Cerebyx added 09/07. Phenobarbital added -Left frontal focus of intermittent seizures persists 09/08, 09/10, 09/11. improving eeg 09/15 -s/p resection of seizure substrate and left frontal lobe -> 09/12 -Off all sedation > 8 days aside from a low dose of phenobarbital for seizure control. - ICH Old from beginning of August -Decreasing in size -Brain mass biopsy path pending -EEG Abnormal study consistent with severe encephalopathy. Occasional sharp activity identified bilaterally, worse in the left temporal area Resp: Acute hypoxic and hypercarbic Respiratory failure- persistent Healthcare associated pneumonia -SBT without extubation. Mental status will not permit extubation -Vent bundle -DuoNeb's as needed -Daily spontaneous breathing trials started CV: Atrial fibrillation Severe mitral and tricuspid regurgitation Pulmonary hypertension Dyslipidemia Hypertension -Metoprolol -Hold anticoagulation due to recent ICH -Hold Bumex 1 mg IV BID -Pravastatin -Metoprolol Renal: d/c bishop -Azotemia slightly improved -considering poor prognosis hold off HD. Nephrology following. Palliative care following FEN/GI: Acute protein calorie malnutrition- severe tube feeds ICU electrolyte protocol daily bmp, mg, phos Glucerna 1.5 enteral feeds continuous Heme/ID: C. difficile infection Healthcare associated pneumonia -Meets criteria for severe C. difficile infection-WBC count of 20 7K, creatinine 1.53 -ID consult -Patient received vancomycin and Zosyn during hospital admission August 19 and was discharged on Levaquin. -Diarrheal stool noticed day 3, antigen and toxin positive -Oral vancomycin 250 4 times daily started 09/09. Discontinue after 14 days. -Start cefepime 2 g IV every 12 for GNR Endocrine: Diabetes -Insulin sliding scale -Made more difficult by Decadron, increased Levemir to 22 units subcu twice daily, continue increase sliding scale correction -Add thyroid replacement. DVT GI prophylaxis -Teds SCDs -Subcu heparin -Pepcid Overall impression: This gentleman is critically ill having sustained seizures which required intubation and mechanical ventilation for control. We are unable to wean him from the ventilator at this time. Intermittent nonconvulsive seizures were documented multiple times by EEG. Remains critically ill and neurologically unstable. Diuretics have been discontinued almost a week ago but still markedly elevated BUN; will need to be corrected before we can conclude that his mental status is severely impaired. Palliative care following DNR now Critical care 35 minutes aside from procedures.
--- NOTE | 2018-09-24 14:52 | P.PNNS ---
Subjective Interval history: no changes neuro checks overnight Physical Exam Vital signs: Vital Signs 09/23/18 15:00 09/23/18 15:30 09/23/18 15:39 Temperature Pulse Rate 76 78 Respiratory Rate 10 L 15 15 Blood Pressure 116/55 L 113/61 Pulse Oximetry 100 100 100 09/23/18 16:00 09/23/18 16:30 09/23/18 17:00 Temperature 97.5 F L Pulse Rate 82 78 79 Respiratory Rate 13 12 8 L Blood Pressure 113/62 112/67 114/61 Pulse Oximetry 100 100 98 09/23/18 17:10 09/23/18 17:15 09/23/18 17:30 Temperature Pulse Rate 76 76 76 Respiratory Rate 9 L 3 L 23 Blood Pressure 94/55 L Pulse Oximetry 100 100 100 09/23/18 17:34 09/23/18 17:45 09/23/18 18:00 Temperature Pulse Rate 75 76 76 Respiratory Rate 13 14 12 Blood Pressure 114/54 L 105/54 L Pulse Oximetry 100 100 100 09/23/18 18:15 09/23/18 18:30 09/23/18 18:45 Temperature Pulse Rate 79 76 78 Respiratory Rate 13 12 13 Blood Pressure 115/51 L Pulse Oximetry 100 100 100 09/23/18 19:00 09/23/18 19:48 09/23/18 20:00 Temperature 98.7 F Pulse Rate 79 78 Respiratory Rate 13 19 17 Blood Pressure 99/45 L 134/49 L Pulse Oximetry 100 100 100 09/23/18 20:30 09/23/18 21:01 09/23/18 22:00 Temperature Pulse Rate 79 82 78 Respiratory Rate 12 12 12 Blood Pressure 122/84 98/51 L Pulse Oximetry 100 100 100 09/23/18 22:05 09/23/18 23:01 09/24/18 00:00 Temperature 98 F Pulse Rate 79 78 79 Respiratory Rate 13 12 12 Blood Pressure 122/75 98/52 L Pulse Oximetry 100 100 100 09/24/18 00:11 09/24/18 00:12 09/24/18 00:15 Temperature Pulse Rate 75 75 Respiratory Rate 15 12 12 Blood Pressure 101/55 L Pulse Oximetry 100 100 100 09/24/18 00:30 09/24/18 01:00 09/24/18 02:00 Temperature Pulse Rate 73 80 79 Respiratory Rate 12 12 16 Blood Pressure 97/60 L 97/55 L Pulse Oximetry 100 100 100 09/24/18 03:00 09/24/18 03:48 09/24/18 04:00 Temperature 98.5 F Pulse Rate 81 65 Respiratory Rate 18 13 14 Blood Pressure 103/62 87/49 L Pulse Oximetry 100 100 97 09/24/18 06:00 09/24/18 07:00 09/24/18 07:01 Temperature Pulse Rate 80 85 86 Respiratory Rate 15 15 Blood Pressure 107/58 L Pulse Oximetry 100 100 09/24/18 07:46 09/24/18 08:00 09/24/18 09:00 Temperature 97.7 F Pulse Rate 90 85 Respiratory Rate 13 19 17 Blood Pressure 121/68 Pulse Oximetry 100 100 100 09/24/18 09:01 09/24/18 11:23 Temperature Pulse Rate 84 Respiratory Rate 16 22 Blood Pressure 120/61 Pulse Oximetry 100 100 Intake & Output 09/23/18 09/24/18 09/24/18 18:59 06:59 18:59 Intake Total 2747 / 2747 2304 / 2304 1162 / 1162 Output Total 1550 / 1550 1800 / 1800 Balance 1197 / 1197 504 / 504 1162 / 1162 Weight 120.8 kg Intake: IV 1312 / 1312 1262 / 1262 1162 / 1162 NS Inj 1,000 ML @ 150 mls/hr IV 1000 / 1000 1000 / 1000 1000 / 1000 .CONT .Q6H40M [facility] Rx#:[id number] Flexbumin 25% Inj 100 ML @ 60 100 / 100 100 / 100 mls/hr IV.SIG Q12H [facility] Rx#: [id number] Diflucan 100 mg Premix Bag 50 50 / 50 ML @ 50 mls/hr IV.SIG Q24H [facility] Rx#:[id number] Cerebyx Inj 100 MGPE In NS Inj 52 / 52 52 / 52 52 / 52 50 ML @ 216 mls/hr IV.SIG Q12HR [facility] Rx#:[id number] Vimpat Inj 100 MG In NS Inj 100 110 / 110 110 / 110 110 / 110 ML @ 110 mls/hr IV.SIG Q12HR [facility]Y Rx#:[id number] Tube Feeding 585 / 585 522 / 522 Tube Irrigant 450 / 450 120 / 120 Water Bolus Amount 400 / 400 400 / 400 Output: Stool 200 / 200 200 / 200 Urine Amount (Catheter) 1350 / 1350 1600 / 1600 Indwelling Temp Sensing 1350 / 1350 1600 / 1600 Catheter Other: Date of Last Bowel Movement 09/23/18 09/24/18 Narrative: nursing reports to grimace, slight withdrawal RUE not opening eyes not following commands no purposeful movement wound healing well, clean and dry - Urinary Catheter Management Indwelling Urethral Catheter Cath placed during this visit: yes, but has since been removed by the nurse Reason for continuing: Decision to DC catheter Insertion date: 09/06/18 Insertion time: 23:00 Removal date: 09/08/18 Removal time: 18:21 Straight Cath placed during this visit: yes, but has since been removed by the nurse Reason for continuing: Decision to DC catheter Insertion date: 09/09/18 Insertion time: 02:20 Removal date: 09/10/18 Removal time: 12:00 Indwelling Temp Sensing Catheter Cath placed during this visit: yes Reason for continuing: Acute urinary retention Insertion date: 09/12/18 Insertion time: 15:30 Assessment and Plan - Plan 77yoM with intractable seizures s/p craniotomy 09/12 ([facility]) for resection of hemorrhagic seizure focus. Head MRI 09/16/18 00:00 CONCLUSION: 1. Postsurgical changes left frontal lobe with minimal basilar edema and minimal residual hemorrhage. 2. No midline shift or mass effect. 3. Cerebral atrophy. 4. No acute infarction. 5. Old left cerebellar infarct. neuro following cont Anti seizure medication cont critical care dc anisa
--- NOTE | 2018-09-24 18:36 | P.PNNP ---
Subjective Interval history: Patient critically ill on the ventilator Physical Exam Vital signs: Vital Signs 09/23/18 18:45 09/23/18 19:00 09/23/18 19:48 Temperature Pulse Rate 78 79 Respiratory Rate 13 13 19 Blood Pressure 99/45 L Pulse Oximetry 100 100 100 09/23/18 20:00 09/23/18 20:30 09/23/18 21:01 Temperature 98.7 F Pulse Rate 78 79 82 Respiratory Rate 17 12 12 Blood Pressure 134/49 L 122/84 Pulse Oximetry 100 100 100 09/23/18 22:00 09/23/18 22:05 09/23/18 23:01 Temperature Pulse Rate 78 79 78 Respiratory Rate 12 13 12 Blood Pressure 98/51 L 122/75 Pulse Oximetry 100 100 100 09/24/18 00:00 09/24/18 00:11 09/24/18 00:12 Temperature 98 F Pulse Rate 79 75 Respiratory Rate 12 15 12 Blood Pressure 98/52 L 101/55 L Pulse Oximetry 100 100 100 09/24/18 00:15 09/24/18 00:30 09/24/18 01:00 Temperature Pulse Rate 75 73 80 Respiratory Rate 12 12 12 Blood Pressure 97/60 L Pulse Oximetry 100 100 100 09/24/18 02:00 09/24/18 03:00 09/24/18 03:48 Temperature Pulse Rate 79 81 Respiratory Rate 16 18 13 Blood Pressure 97/55 L 103/62 Pulse Oximetry 100 100 100 09/24/18 04:00 09/24/18 06:00 09/24/18 07:00 Temperature 98.5 F Pulse Rate 65 80 85 Respiratory Rate 14 15 Blood Pressure 87/49 L Pulse Oximetry 97 100 09/24/18 07:01 09/24/18 07:46 09/24/18 08:00 Temperature 97.7 F Pulse Rate 86 90 Respiratory Rate 15 13 19 Blood Pressure 107/58 L 121/68 Pulse Oximetry 100 100 100 09/24/18 09:00 09/24/18 09:01 09/24/18 11:23 Temperature Pulse Rate 85 84 Respiratory Rate 17 16 22 Blood Pressure 120/61 Pulse Oximetry 100 100 100 09/24/18 15:28 Temperature Pulse Rate Respiratory Rate 14 Blood Pressure Pulse Oximetry 100 Intake & Output 09/23/18 09/24/18 09/24/18 18:59 06:59 18:59 Intake Total 2747 / 2747 2304 / 2304 221 / 2212 Output Total 1550 / 1550 1800 / 1800 Balance 1197 / 1197 504 / 504 221 / 2212 Weight 120.8 kg Intake: IV 1312 / 1312 1262 / 1262 221 / 2212 NS Inj 1,000 ML @ 150 mls/hr IV 1000 / 1000 1000 / 1000 2000 / 2000 .CONT .Q6H40M [facility]ALY Rx#:[id number] Flexbumin 25% Inj 100 ML @ 60 100 / 100 100 / 100 mls/hr IV.SIG Q12H MAGALY Rx#: [id number] Diflucan 100 mg Premix Bag 50 50 / 50 50 / 50 ML @ 50 mls/hr IV.SIG Q24H MAGALY Rx#:[id number] Cerebyx Inj 100 MGPE In NS Inj 52 / 52 52 / 52 52 / 52 50 ML @ 216 mls/hr IV.SIG Q12HR [facility]ALY Rx#:[id number] Vimpat Inj 100 MG In NS Inj 100 110 / 110 110 / 110 110 / 110 ML @ 110 mls/hr IV.SIG Q12HR [facility]ALY Rx#:[id number] Tube Feeding 585 / 585 522 / 522 Tube Irrigant 450 / 450 120 / 120 Water Bolus Amount 400 / 400 400 / 400 Output: Stool 200 / 200 200 / 200 Urine Amount (Catheter) 1350 / 1350 1600 / 1600 Indwelling Temp Sensing 1350 / 1350 1600 / 1600 Catheter Other: Date of Last Bowel Movement 09/23/18 09/24/18 Narrative: nursing reports to grimace, slight withdrawal RUE not opening eyes not following commands no purposeful movement wound healing well, clean and dry - Urinary Catheter Management Indwelling Urethral Catheter Cath placed during this visit: yes, but has since been removed by the nurse Reason for continuing: Decision to DC catheter Insertion date: 09/06/18 Insertion time: 23:00 Removal date: 09/08/18 Removal time: 18:21 Straight Cath placed during this visit: yes, but has since been removed by the nurse Reason for continuing: Decision to DC catheter Insertion date: 09/09/18 Insertion time: 02:20 Removal date: 09/10/18 Removal time: 12:00 Indwelling Temp Sensing Catheter Cath placed during this visit: yes Reason for continuing: Acute urinary retention Insertion date: 09/12/18 Insertion time: 15:30 Assessment and Plan - Assessment (1) Chronic kidney disease (CKD) stage G3a/A1, moderately decreased glomerular filtration rate (GFR) between 45-59 mL/min/1.73 square meter and albuminuria creatinine ratio less than 30 mg/g Code(s): N18.3 - Chronic kidney disease, stage 3 (moderate) Status: Acute (2) Hyperkalemia Code(s): E87.5 - Hyperkalemia Status: Acute (3) ICH (intracerebral hemorrhage) Code(s): I61.9 - Nontraumatic intracerebral hemorrhage, unspecified Status: Acute Qualifiers: Intracerebral hemorrhage etiology: traumatic Encounter type: initial encounter Laterality: left Loss of consciousness presence/duration: with LOC of unspecified duration Qualified Code(s): S06.359A - Traumatic hemorrhage of left cerebrum with loss of consciousness of unspecified duration, initial encounter (4) Localization-related (focal) (partial) symptomatic epilepsy and epileptic syndromes with complex partial seizures, intractable, with status epilepticus Code(s): G40.211 - Localization-related (focal) (partial) symptomatic epilepsy and epileptic syndromes with complex partial seizures, intractable, with status epilepticus Status: Acute (5) Atrial fibrillation Code(s): I48.91 - Unspecified atrial fibrillation Status: Acute (6) Acute encephalopathy Code(s): G93.40 - Encephalopathy, unspecified Status: Acute - Plan Patient is on tube feed, ON Nepro as patient has reduced GFR and accumulating potassium Potassium normal patient has C. difficile Given albumin and Lasix for diuresis monitor BMP, Patient has frontal mass and pathology is pending Patient remains critically ill intubated on ventilator he has edema Continue supportive care Family at bedside possible palliative care
[2018-09-25] MEDS: Albumin Human 25% Inj 100 ML IV.SIG SCH ×2 (03:32→15:01)
[2018-09-25] MEDS: dilTIAZem 30 MG Tablet PO SCH ×3 (03:32→13:04)
[2018-09-25] MEDS: Levothyroxine 75 MCG Tablet PO SCH (05:43)
[2018-09-25] MEDS: Heparin - SQ 10,000 UNITS/ML Vial SQ SCH ×2 (05:43→13:04)
[2018-09-25] MEDS: Oral Hygiene Kit OROPHARYNG SCH ×4 (05:43→16:31)
[2018-09-25] MEDS: Insulin NovoLOG Aspart Correctional Sugar Inj SQ SCH ×2 (05:57→13:02)
[2018-09-25 05:59] LABS: Alanine Aminotransferase 15 U/L (12-78); Albumin 2.4 g/dL (3.4-5.0); Alkaline Phosphatase 112 U/L (45-117); Anion Gap 12 meq/L (5-15); Aspartate Aminotransferase 22 U/L (15-37); Blood Urea Nitrogen 112 mg/dL (7-18); Calcium 7.7 mg/dL (8.5-10.1); Carbon Dioxide 19.7 meq/L (21.0-32.0); Chloride 113 meq/L (98-107); Glomerular Filtration Rate 62 mL/min (>89); Glucose,Random 181 mg/dL (74-106); Magnesium 2.3 mg/dL (1.5-2.5); Potassium 5.1 meq/L (3.5-5.1); Sodium 145 meq/L (136-145); Total Protein 6.1 g/dL (6.4-8.2)
[2018-09-25] MEDS: Sod Chloride 0.9% Inj 1,000 ML IV.CONT SCH ×2 (06:11→13:03)
--- NOTE | 2018-09-25 07:30 | P.PNCC ---
Subjective Subjective Remarks/Hospital Course: 69-year-old male with a history of recent ICH, and seizure disorder presents from home after he was seizing. Called paramedics arrived to find him seizing in the setting they gave him 2 of Versed to break his seizure after they establish IV access patient then in route has another seizure and they gave him 2 more Versed. The patient was a postictal voiding episode and became in respiratory distress needed to be intubated by the paramedics. They intubated him and arrived to emergency department sedated intubated and possibly seizing with contraction of the right hand. He was started on a propofol drip to keep him sedated as well as seizure-free and he has been admitted to the ICU. 09/07: No more seizure activity. Weaned to propofol 5 mics per kilogram per minute. AED restarted. CAT scan shows diminished size of left frontal lobe hematoma compared to prior study. 09/08: No more obvious seizure activity. Patient withdraws limbs aside from left foot. He grimaces to noxious stimulation. Breathes spontaneously over the ventilator. We need to confirm that he is indeed stopped seizing. Cerebyx added to Keppra. 09/09: Focus of left frontal intermittent seizure activity persists on 09/08. Still on Versed drip infusion and mechanical ventilation. Neurology service continues to adjust AED regimen. MRI yesterday without other significant injury aside from the known left frontal hematoma. 09/10: Focal area of intermittent seizure frontal lobe persisted yesterday on EEG. AED doses being adjusted. Urine output marginal, will reinstitute loop diuretic along with metolazone. Underlying cardiac function impaired at baseline with severe mitral and tricuspid regurgitation along with pulmonary hypertension as expected. Most recent echo is about a month ago. 09/11: Continued left fronto temporal seizure activity despite 3 AEDs. Juxtaposition of this 2 cm maturing left frontal lobe hematoma to the seizure activity is probably not coincidental. I have discussed with the family the concept of excising the mature hematoma in an attempt to attenuate the seizure activity. 09/12: Patient required versed yesterday for elevated airway pressures possibly related to seizure activity. No problems after Versed bolus and restarted. Plan is for resection of the seizure substrate in the left frontal lobe today. 09/13: Status post resection of left frontal lobe hemorrhagic mass yesterday. Return from OR on mechanical ventilation. Stable hemodynamics. Patient remains neurologically unstable with refractory seizures for which he underwent mass resection. 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 All sedation was stopped late Saturday and we are waiting for the gentleman to wake up. By cardiac echo obtained during his last admission he has both severe mitral and tricuspid regurgitation. He tends to retain fluid and is been chronically on Bumex 2 mg and metolazone 5 mg daily. Renal function tests indicate a prerenal type azotemia. It is unlikely that this represents too little intravascular volume because his weight is up and he has peripheral edema in his lower extremities. I have added albumin in an attempt to mobilize some fluid. Fortunately gas exchange has been good. 09/15: off sedation x 48h. still not following commands. very poor neuro exam. GCS 3. ? weak flicker of movement in the right upper extremity (unclear if posturing or withdraw) and slight grimace to painful stimuli. otherwise, no movement in any extremity. +cough. + corneals. pupils 2mm equal and reactive. EEG ordered. 09/16: remains off sedation for days. now worsening exam: no grimace at all to painful stimuli. GCS remains 3. EEG persistently poor, but no overt seizures. MRI ordered today without new ischemic area. anti-epileptic levels therapeutic. discussed with Dr. Bonilla: if no improvements by the end of the week, prognosis is grim at best. discussed this together at length with the family. states she does knows that he would not want trach/peg and would not want to live if he was not awake and off machines. 09/17: Elevated BUN likely contributing to his somnolence. Considering the extended period of time he was on moderate to high dose Versed it may well take many more days for that to clear as well. I am forced to hydrate him knowing that it will increase his peripheral edema. But were going to have to normalize his urea nitrogen before we can assume he is encephalopathic for some other reason. 09/18: Creatinine decline but BUN has increased again. Patient is being aggressively hydrated with hypotonic solution but were having a hard time keeping up with the was moderate diuresis from the hyperglycemia. Once again will increase the long-acting insulin coverage. Certainly elevated sodium and contributing to his somnolence. Decadron is making glucose control even harder. Underlying all this is heart failure and his ongoing retention of fluid , complicating all of these issues. 09/19: Minimal improvement and osmolality and BUN. Persistent white blood cell count elevation. No change in neurologic status. Family wishes to continue pursuing aggressively all avenues. Presently waiting for benzodiazepines to wear off. 09/20: Aside from some mouth movements there is no real increase in continuous activity nor withdrawal. Electrolytes require correction today after diuretics changed for the treatment of chronic heart failure. 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 No movement nor withdrawal today. 6 days since all all sedation and analgesia stopped. BUN 141 likely contributing to somnolence. Patient is well hydrated with greater than 1500 mL's of urine per day yet prerenal pattern persists. IV has been running at 150 mL's per hour for many days now and azotemia worsens. Possible component of osmotic diuresis secondary to hyperglycemia? In my discussions with family we have all decided if patient does not wake up more after 7 days without sedation, and normalized BUN, then recovery from this episode of status seizures is a lot less likely. 09/22: Remains unresponsive severely encephalopathy. WBC count increasing 20 7K today. Infectious disease consulted. Also patient's BUN/creatinine increasing BUN is 153 with a creatinine 1.5. D/W Neurology Dr. Bonilla, re nephrology consult for possible dialysis. He is recommending consulting palliative care. As the pathology may show glioma 09/23: Remains unresponsive severely encephalopathic. Remains orally intubated on mechanical ventilation. Tolerating tube feeds. 09/24: Remains intubated not on any sedation. Repeat EEG shows severe encephalopathy, occasional sharp activities bilaterally worse than left temporal. Path still pending. Sputum culture growing GNR 09/25: No acute events reported overnight. Patient appears comfortable on the vent and unresponsive. Family planning on withdrawal of life support and transition to comfort measures today Objective Vital Signs / I&O: Vital Signs 09/24/18 07:46 09/24/18 08:00 09/24/18 09:00 Temperature 97.7 F Pulse Rate 90 85 Respiratory Rate 13 19 17 Blood Pressure 121/68 Pulse Oximetry 100 100 100 09/24/18 09:01 09/24/18 10:00 09/24/18 10:01 Temperature Pulse Rate 84 80 81 Respiratory Rate 16 15 16 Blood Pressure 120/61 103/58 L Pulse Oximetry 100 100 100 09/24/18 11:00 09/24/18 11:01 09/24/18 11:23 Temperature Pulse Rate 82 80 Respiratory Rate 16 17 22 Blood Pressure 109/63 Pulse Oximetry 100 100 100 09/24/18 12:00 09/24/18 12:01 09/24/18 13:00 Temperature 97.8 F Pulse Rate 82 79 79 Respiratory Rate 14 15 16 Blood Pressure 107/62 Pulse Oximetry 99 100 100 09/24/18 13:01 09/24/18 14:00 09/24/18 14:01 Temperature Pulse Rate 80 82 81 Respiratory Rate 15 13 15 Blood Pressure 114/66 108/65 Pulse Oximetry 100 100 100 09/24/18 15:00 09/24/18 15:01 09/24/18 15:28 Temperature Pulse Rate 85 82 Respiratory Rate 14 13 14 Blood Pressure 107/58 L Pulse Oximetry 100 100 100 09/24/18 16:00 09/24/18 16:01 09/24/18 17:00 Temperature 98.2 F Pulse Rate 85 86 91 H Respiratory Rate 15 14 13 Blood Pressure 112/84 Pulse Oximetry 99 99 100 09/24/18 17:01 09/24/18 18:00 09/24/18 18:01 Temperature Pulse Rate 91 H 90 89 Respiratory Rate 14 12 12 Blood Pressure 93/59 L 93/61 L Pulse Oximetry 99 97 98 09/24/18 19:00 09/24/18 19:01 09/24/18 19:47 Temperature Pulse Rate 85 85 Respiratory Rate 12 12 12 Blood Pressure 97/57 L Pulse Oximetry 99 99 100 09/24/18 20:00 09/24/18 21:00 09/24/18 22:00 Temperature 97.8 F Pulse Rate 87 87 88 Respiratory Rate 12 17 14 Blood Pressure 102/62 103/62 96/57 L Pulse Oximetry 100 100 100 09/24/18 23:00 09/24/18 23:41 09/25/18 00:00 Temperature 97.9 F Pulse Rate 79 77 Respiratory Rate 13 16 14 Blood Pressure 100/56 L 98/57 L Pulse Oximetry 100 100 100 09/25/18 01:00 09/25/18 02:00 09/25/18 03:00 Temperature Pulse Rate 80 83 84 Respiratory Rate 14 15 15 Blood Pressure 108/65 101/66 128/60 Pulse Oximetry 100 100 100 09/25/18 04:00 09/25/18 04:04 09/25/18 05:00 Temperature 97.9 F Pulse Rate 82 88 Respiratory Rate 16 20 14 Blood Pressure 110/58 L 108/66 Pulse Oximetry 100 95 97 09/25/18 06:00 Temperature Pulse Rate 83 Respiratory Rate 15 Blood Pressure 108/66 Pulse Oximetry 100 Intake & Output 09/24/18 09/25/18 09/25/18 18:59 06:59 18:59 Intake Total 3730 / 3730 2198 / 2198 Output Total 1600 / 1600 1500 / 1500 Balance 2130 / 2130 698 / 698 Weight 178.8 kg Intake: IV 2312 / 2312 1362 / 1362 NS Inj 1,000 ML @ 150 mls/hr IV 2000 / 2000 1000 / 1000 .CONT .Q6H40M [facility]AL[facility] Rx#:[id number] Flexbumin 25% Inj 100 ML @ 60 100 / 100 100 / 100 mls/hr IV.SIG Q12H [facility]AL[facility] Rx#: [id number] Maxipime Inj 2,000 MG In NS Inj 100 / 100 100 ML @ 200 mls/hr IV.SIG Q8H [facility]AL[facility] Rx#:[id number] Diflucan 100 mg Premix Bag 50 50 / 50 ML @ 50 mls/hr IV.SIG Q24H [facility]AL[facility] Rx#:[id number] Cerebyx Inj 100 MGPE In NS Inj 52 / 52 52 / 52 50 ML @ 216 mls/hr IV.SIG Q12HR [facility]AL[facility] Rx#:[id number] Vimpat Inj 100 MG In NS Inj 100 110 / 110 110 / 110 ML @ 110 mls/hr IV.SIG Q12HR MAGALY Rx#:[id number] Tube Feeding 568 / 568 436 / 436 Tube Irrigant 450 / 450 400 / 400 Water Bolus Amount 400 / 400 Output: Stool 50 / 50 Urine Amount (Catheter) 1550 / 1550 1500 / 1500 Indwelling Temp Sensing 1550 / 1550 1500 / 1500 Catheter Other: Date of Last Bowel Movement 09/24/18 09/24/18 Result Diagrams: 09/24/18 04:08 09/25/18 04:09 Objective Remarks: gen: elderly male, in bed on ventilator heent: Incision clean dry neck: no jvd. trachea midline. Orally intubated chest: PRVC. equal chest rise. fio2 40%, nielson clear. cv: normal rate, regular rhythm. sinus, no JVD. abd: soft, nontender, nondistended. no guarding. Bowel sounds active extr: Some thigh edema. distal pulses 2+. neuro: GCS 3. no movement at all today to deep stimulation. Some occasional mouth and jaw movement. Assessment and Plan - Assessment and Plan Plan: Assessment: 77yM presented in status epilepticus with frontal mass now s/p craniotomy and mass resection with persistently very poor neurologic exam. Remains critically ill today, off pathway, with persistent encephalopathy. the longer we go without neurologic improvement, the more grim the prognosis. Palliative care following, DNR status now family is planning on withdrawal of life support and comfort measures today Neuro: Status Epilepticus Left frontal intraparenchymal ICH s/p left craniectomy and mass resection Severe acute encephalopathy -off sedation x several days without improvement -Neurology and neurosurgery following. 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 Final path pending -IV Keppra. Cerebyx added 09/07. Phenobarbital added -Left frontal focus of intermittent seizures persists 09/08, 09/10, 09/11. improving eeg 09/15 -s/p resection of seizure substrate and left frontal lobe -> 09/12 -Off all sedation > 8 days aside from a low dose of phenobarbital for seizure control. - ICH Old from beginning of August -Decreasing in size -Brain mass biopsy path pending -EEG Abnormal study consistent with severe encephalopathy. Occasional sharp activity identified bilaterally, worse in the left temporal area Resp: Acute hypoxic and hypercarbic Respiratory failure- persistent Healthcare associated pneumonia -SBT without extubation. Mental status will not permit extubation -Vent bundle -DuoNeb's as needed -Anticipate transition to comfort measures today CV: Atrial fibrillation Severe mitral and tricuspid regurgitation Pulmonary hypertension Dyslipidemia Hypertension -Metoprolol -Hold anticoagulation due to recent ICH -Hold Bumex 1 mg IV BID -Pravastatin Renal: d/c bishop -Azotemia slightly improved -considering poor prognosis hold off HD. Nephrology following. Palliative care following FEN/GI: Acute protein calorie malnutrition- severe tube feeds ICU electrolyte protocol daily bmp, mg, phos Glucerna 1.5 enteral feeds continuous Heme/ID: C. difficile infection Healthcare associated pneumonia -Meets criteria for severe C. difficile infection-WBC count of 20 7K, creatinine 1.53 -ID following -Patient received vancomycin and Zosyn during hospital admission August 19 and was discharged on Levaquin. -Diarrheal stool noticed day 3, antigen and toxin positive -Oral vancomycin 250 4 times daily started 09/09. Discontinue after 14 days. -Cefepime 2 g IV every 12 for GNR Endocrine: Diabetes -Insulin sliding scale, Levemir. Remains on Decadron -thyroid replacement. DVT GI prophylaxis -Teds SCDs -Subcu heparin -Pepcid Transition to comfort measures plan for today. Level 1
[2018-09-25] MEDS: Beneprotein Powder Packet G-TUBE SCH ×2 (09:44→13:04)
[2018-09-25] MEDS: Fosphenytoin Inj 100 MGPE in Sodium Chlor 0.9% Inj 50 ML IV.SIG SCH ×2 (09:44→21:23)
[2018-09-25] MEDS: Chlorhexidine 0.12% Oral Kit 15 ML UDC OROPHARYNG SCH ×2 (09:44→21:21)
[2018-09-25] MEDS: Allopurinol 100 MG Tablet PO SCH (09:45)
[2018-09-25] MEDS: Famotidine PF Inj 20 MG/2 ML Vial IV.PUSH SCH ×2 (09:46→21:21)
[2018-09-25] MEDS: Magnesium Oxide 400 MG Tablet PO SCH (09:46)
[2018-09-25] MEDS: Metoprolol Tartrate 50 MG Tablet PO SCH ×2 (09:46→12:13)
[2018-09-25] MEDS: PHENobarbital Inj 130 MG/ML Vial IV.PUSH SCH ×2 (09:46→21:21)
[2018-09-25] MEDS: Insulin Detemir Inj 1,000 UNIT/10 ML Vial SQ SCH (09:48)
[2018-09-25] MEDS: Senna/Docusate Sodium 8.6/50 MG Tablet PO SCH (09:48)
[2018-09-25] MEDS: Lacosamide Inj 100 MG in Sodium Chlor 0.9% Inj 100 ML IV.SIG SCH ×2 (09:50→21:42)
--- NOTE | 2018-09-25 14:08 | P.PNPAL ---
Reason for Visit Reason for visit: a. To assist with evaluation and management of symptoms including: Dyspnea, encephalopathy b. To assist medical decision maker(s) with: better understanding of current medical conditions; weighing benefits/burdens of medical treatment options; making medical treatment decisions. Subjective Subjective/Interval History: Pt seen today to follow up on comfort, and requested compassionate withdrawal of ventilator. Met w family at length yesterday w Dr Angel- family verbalized pt would not want to continue artificial measures without improvement in his conditions. They requested to not further prolong his "suffering" and requested compassionate removal of ventilator today. Upon initial arrival to unit no family present. Call to grandson he indicates they are expecting to arrive here around 330pm and wish to proceed with comfort measures and removal of artificial life support at that time. Patient has remained stable overnight. No significant changes/improvements to neurological assessment per nursing. BUN and creatinine slightly improved BUN 112, creatinine 1.15. Otherwise chemistry unremarkable, unchanged. Hemoccult stool negative. Blood cultures positive Staphylococcus epidermidis. Sputum 09/23+ pseudomonas aeruginosa. Dual visit w Maurilio Davis [employer]. 1530 Son, additional family arriving. Confirm with son and that they had already signed exhibit, and nurse and the family wished to proceed with compassionate withdrawal of life support today as consistent with patient's known wishes. They verbalize he is suffering, and he would only want to continue with such measures if he would have good chance of meaningful recovery. Anticipatory guidance provided. Comfort medications entered for pre-withdrawal, time of withdrawal, and post withdrawal. If patient survives beyond tomorrow we can discuss hosp[facility] and [facility]. discussed w , critical care Dr Ochoa, primary Nurse. Exhibit B , C signed , and in chart. . Advance Directives Significant change in goals:: family/proxy elects transition to comfort only today. Objective Vital Signs: Vital Signs 09/24/18 15:00 09/24/18 15:01 09/24/18 15:28 Temperature Pulse Rate 85 82 Respiratory Rate 14 13 14 Blood Pressure 107/58 L Pulse Oximetry 100 100 100 09/24/18 16:00 09/24/18 16:01 09/24/18 17:00 Temperature 98.2 F Pulse Rate 85 86 91 H Respiratory Rate 15 14 13 Blood Pressure 112/84 Pulse Oximetry 99 99 100 09/24/18 17:01 09/24/18 18:00 11/07/18 18:01 Temperature Pulse Rate 91 H 90 89 Respiratory Rate 14 12 12 Blood Pressure 93/59 L 93/61 L Pulse Oximetry 99 97 98 09/24/18 19:00 09/24/18 19:01 09/24/18 19:47 Temperature Pulse Rate 85 85 Respiratory Rate 12 12 12 Blood Pressure 97/57 L Pulse Oximetry 99 99 100 09/24/18 20:00 09/24/18 21:00 09/24/18 22:00 Temperature 97.8 F Pulse Rate 87 87 88 Respiratory Rate 12 17 14 Blood Pressure 102/62 103/62 96/57 L Pulse Oximetry 100 100 100 09/24/18 23:00 09/24/18 23:41 09/25/18 00:00 Temperature 97.9 F Pulse Rate 79 77 Respiratory Rate 13 16 14 Blood Pressure 100/56 L 98/57 L Pulse Oximetry 100 100 100 09/25/18 01:00 09/25/18 02:00 09/25/18 03:00 Temperature Pulse Rate 80 83 84 Respiratory Rate 14 15 15 Blood Pressure 108/65 101/66 128/60 Pulse Oximetry 100 100 100 09/25/18 04:00 09/25/18 04:04 09/25/18 05:00 Temperature 97.9 F Pulse Rate 82 88 Respiratory Rate 16 20 14 Blood Pressure 110/58 L 108/66 Pulse Oximetry 100 95 97 09/25/18 06:00 09/25/18 07:00 09/25/18 07:54 Temperature Pulse Rate 83 89 Respiratory Rate 15 18 20 Blood Pressure 108/66 Pulse Oximetry 100 100 100 09/25/18 08:00 09/25/18 08:07 09/25/18 09:00 Temperature 97.6 F Pulse Rate 97 H 91 H 96 H Respiratory Rate 19 20 20 Blood Pressure 111/72 Pulse Oximetry 100 97 100 09/25/18 09:58 09/25/18 10:00 09/25/18 11:56 Temperature Pulse Rate 94 H 95 H Respiratory Rate 21 25 H 21 Blood Pressure 108/61 Pulse Oximetry 100 100 100 Intake & Output 09/24/18 09/25/18 09/25/18 18:59 06:59 18:59 Intake Total 3730 / 3730 2198 / 2198 1000 / 1000 Output Total 1600 / 1600 1500 / 1500 Balance 2130 / 2130 698 / 698 1000 / 1000 Weight 178.8 kg Intake: IV 2312 / 2312 1362 / 1362 1000 / 1000 NS Inj 1,000 ML @ 150 mls/hr IV 1999 / 1999 1000 / 1000 1000 / 1000 .CONT .Q6H40M [facility]AL[facility] Rx#:[id number] Flexbumin 25% Inj 100 ML @ 60 100 / 100 100 / 100 mls/hr IV.SIG Q12H MAGALY Rx#: [id number] Maxipime Inj 2,000 MG In NS Inj 100 / 100 100 ML @ 200 mls/hr IV.SIG Q8H MAGAL[facility] Rx#:[id number] Diflucan 100 mg Premix Bag 50 50 / 50 ML @ 50 mls/hr IV.SIG Q24H MAGALY Rx#:[id number] Cerebyx Inj 100 MGPE In NS Inj 52 / 52 52 / 52 50 ML @ 216 mls/hr IV.SIG Q12HR MAGALY Rx#:[id number] Vimpat Inj 100 MG In NS Inj 100 110 / 110 110 / 110 ML @ 110 mls/hr IV.SIG Q12HR MAGALY Rx#:[id number] Tube Feeding 568 / 568 436 / 436 Tube Irrigant 450 / 450 400 / 400 Water Bolus Amount 400 / 400 Output: Stool 50 / 50 Urine Amount (Catheter) 1550 / 1550 1500 / 1500 Indwelling Temp Sensing 1550 / 1550 1500 / 1500 Catheter Other: Date of Last Bowel Movement 09/24/18 09/24/18 09/25/18 Physical Exam: CONSTITUTIONAL/GENERAL: This is an adequately nourished patient, nonresponsive to exam TUBES/LINES/DRAINS: Peripheral iv bilateral upper extremity, Fields catheter, rectal drainage, ET tube, OG tube, soft restraints bilaterally SKIN: No jaundice, rashes, or lesions. No wounds seen anteriorly. Well-healed midline abdominal scar. Well-healed sternal scar. Well-healed right knee scar few scattered ecchymosis and skin tears bilateral arms. Some serous drainage from arms. Skin temperature warm and dry. Rt arm cooler to touch, more edematous EYES: Pupils equal and round and reactive, 3 mm. slight blink to threat. + corneal. No scleral icterus. No injection or drainage. Fundi not examined. ENT: Nose without bleeding or purulent drainage. limited oropharynx exam secondary to tubes, no evident lesions or exudates. CARDIOVASCULAR: Irregular heart rate. Heart sounds difficult to auscultate over breath sounds. Peripheral pulses faintly palpable. Significant peripheral edema.Rt arm cooler to touch, more edematous RESPIRATORY/CHEST: Symmetric, unlabored respirations via ET tube to mechanical vent. faint scattered rhonchi . Breath sounds equal bilaterally. GASTROINTESTINAL: Abdomen soft, obese, unable to determine tenderness, nondistended. No hepato-splenomegaly, or palpable masses. Bowel sounds hypoactive. GENITOURINARY: Without palpable bladder distension. Fields catheter in place.+ Scrotal edema. MUSCULOSKELETAL: Extremities without clubbing, cyanosis. No joint effusion noted. 2+ edema all 4 extremities.Rt arm cooler to touch, more edematous, 3+ NEUROLOGICAL: not on sedation. No eye opening. +corneal, + pupillary response. No withdrawal to pain. Very weak/slight gag reflex with ET tube stimuli. + thrusting motion with tongue to left with pain stimuli. PSYCHIATRIC: Limited assessment secondary to clinical condition no evident distress Diagnostic Tests Laboratory: Laboratory Results - last 72 hr 09/21/18 09/21/18 09/22/18 12:10 12:10 13:26 WBC RBC Hgb 7.7 L Hct 24.3 L MCV MCH MCHC RDW Plt Count MPV Prelim Diff (Auto) Neut % (Auto) Lymph % (Auto) Hand % (Auto) Eos % (Auto) Baso % (Auto) Neut # (Auto) Lymph # (Auto) Hand # (Auto) Eos # (Auto) Baso # (Auto) WBC Differential Seg Neuts % (Manual) Band Neuts % (Manual) Lymphocytes % (Manual) Monocytes % (Manual) Metamyelocytes % (Man) Myelocytes % (Man) Abs Neuts (Manual) Nucleated RBCs/100 WBC Differential Comment Platelet Estimate Platelet Morphology Ovalocytes Sodium Potassium Chloride Carbon Dioxide Anion Gap BUN Creatinine Estimated GFR POC Glucose Random Glucose Calcium Magnesium Total Bilirubin AST ALT Alkaline Phosphatase Total Protein Albumin Urine Color Yellow Urine Clarity Hazy H Urine pH 5.0 Ur Specific [place] 1.015 Urine Protein Negative Urine Glucose (UA) Negative Urine Ketones Negative Urine Occult Blood Large H Urine Nitrate Negative Urine Bilirubin Negative Urine Urobilinogen Less than 2 Ur Leukocyte Esterase Negative Urine RBC Less than 1 Urine WBC 3 Ur Squamous Epith Cells <1 Urine Bacteria Occasional H Urine Mucus Few H Urine Yeast Moderate H Micro UA Comment Cath-culture ind Urine Culture Comments Cath-cult indicated Ur Microalbumin mg/L 28 U Creat (Microalbumin) 37.0 Microalb/Creat Ratio 77 H Stl C.difficile DNA Amp St C. diff Tox Epid 027 Phenytoin Phenobarbital 09/22/18 09/22/18 09/22/18 17:52 17:55 23:48 WBC RBC Hgb Hct MCV MCH MCHC RDW Plt Count MPV Prelim Diff (Auto) Neut % (Auto) Lymph % (Auto) Hand % (Auto) Eos % (Auto) Baso % (Auto) Neut # (Auto) Lymph # (Auto) Hand # (Auto) Eos # (Auto) Baso # (Auto) WBC Differential Seg Neuts % (Manual) Band Neuts % (Manual) Lymphocytes % (Manual) Monocytes % (Manual) Metamyelocytes % (Man) Myelocytes % (Man) Abs Neuts (Manual) Nucleated RBCs/100 WBC Differential Comment Platelet Estimate Platelet Morphology Ovalocytes Sodium Potassium Chloride Carbon Dioxide Anion Gap BUN Creatinine Estimated GFR POC Glucose 294 H 271 H 273 H Random Glucose Calcium Magnesium Total Bilirubin AST ALT Alkaline Phosphatase Total Protein Albumin Urine Color Urine Clarity Urine pH Ur Specific [place] Urine Protein Urine Glucose (UA) Urine Ketones Urine Occult Blood Urine Nitrate Urine Bilirubin Urine Urobilinogen Ur Leukocyte Esterase Urine RBC Urine WBC Ur Squamous Epith Cells Urine Bacteria Urine Mucus Urine Yeast Micro UA Comment Urine Culture Comments Ur Microalbumin mg/L U Creat (Microalbumin) Microalb/Creat Ratio Stl C.difficile DNA Amp St C. diff Tox Epid 027 Phenytoin Phenobarbital 09/23/18 09/23/18 09/23/18 05:29 08:42 10:00 WBC 28.1 H RBC 2.14 L Hgb 7.5 L Hct 24.4 L MCV 113.9 H D MCH 35.2 H MCHC 30.9 L RDW 18.6 H Plt Count 201 MPV 8.9 Prelim Diff (Auto) Neut % (Auto) Lymph % (Auto) Hand % (Auto) Eos % (Auto) Baso % (Auto) Neut # (Auto) Lymph # (Auto) Hand # (Auto) Eos # (Auto) Baso # (Auto) WBC Differential Seg Neuts % (Manual) Band Neuts % (Manual) Lymphocytes % (Manual) Monocytes % (Manual) Metamyelocytes % (Man) Myelocytes % (Man) Abs Neuts (Manual) Nucleated RBCs/100 WBC Differential Comment Platelet Estimate Platelet Morphology Ovalocytes Sodium 141 Potassium 5.2 H Chloride 107 Carbon Dioxide 21.8 Anion Gap 12 BUN 148 H Creatinine 1.49 H Estimated GFR 46 L POC Glucose 241 H Random Glucose 281 H Calcium 7.8 L Magnesium 2.6 H Total Bilirubin 0.5 AST 20 ALT 12 Alkaline Phosphatase 94 Total Protein 5.6 L Albumin 2.3 L Urine Color Urine Clarity Urine pH Ur Specific [place] Urine Protein Urine Glucose (UA) Urine Ketones Urine Occult Blood Urine Nitrate Urine Bilirubin Urine Urobilinogen Ur Leukocyte Esterase Urine RBC Urine WBC Ur Squamous Epith Cells Urine Bacteria Urine Mucus Urine Yeast Micro UA Comment Urine Culture Comments Ur Microalbumin mg/L U Creat (Microalbumin) Microalb/Creat Ratio Stl C.difficile DNA Amp St C. diff Tox Epid 027 Phenytoin 14.2 Phenobarbital 28.4 09/23/18 09/23/18 09/24/18 11:57 16:19 00:22 WBC RBC Hgb Hct MCV MCH MCHC RDW Plt Count MPV Prelim Diff (Auto) Neut % (Auto) Lymph % (Auto) Hand % (Auto) Eos % (Auto) Baso % (Auto) Neut # (Auto) Lymph # (Auto) Hand # (Auto) Eos # (Auto) Baso # (Auto) WBC Differential Seg Neuts % (Manual) Band Neuts % (Manual) Lymphocytes % (Manual) Monocytes % (Manual) Metamyelocytes % (Man) Myelocytes % (Man) Abs Neuts (Manual) Nucleated RBCs/100 WBC Differential Comment Platelet Estimate Platelet Morphology Ovalocytes Sodium Potassium Chloride Carbon Dioxide Anion Gap BUN Creatinine Estimated GFR POC Glucose 302 H 367 H 320 H Random Glucose Calcium Magnesium Total Bilirubin AST ALT Alkaline Phosphatase Total Protein Albumin Urine Color Urine Clarity Urine pH Ur Specific [place] Urine Protein Urine Glucose (UA) Urine Ketones Urine Occult Blood Urine Nitrate Urine Bilirubin Urine Urobilinogen Ur Leukocyte Esterase Urine RBC Urine WBC Ur Squamous Epith Cells Urine Bacteria Urine Mucus Urine Yeast Micro UA Comment Urine Culture Comments Ur Microalbumin mg/L U Creat (Microalbumin) Microalb/Creat Ratio Stl C.difficile DNA Amp St C. diff Tox Epid 027 Phenytoin Phenobarbital 09/24/18 09/24/18 09/24/18 04:08 04:08 09:12 WBC 25.4 H RBC 2.28 L Hgb 7.8 L Hct 24.8 L MCV 108.9 H D MCH 34.1 H MCHC 31.3 L RDW 17.9 H Plt Count 230 MPV 10.1 Prelim Diff (Auto) Slide review pending Neut % (Auto) 83.1 H Lymph % (Auto) 3.0 L Hand % (Auto) 11.0 H Eos % (Auto) 2.5 Baso % (Auto) 0.4 Neut # (Auto) 21.1 H Lymph # (Auto) 0.8 L Hand # (Auto) 2.8 H Eos # (Auto) 0.6 H Baso # (Auto) 0.1 WBC Differential Manual diff final Seg Neuts % (Manual) 71 H Band Neuts % (Manual) 10 H Lymphocytes % (Manual) 4 L Monocytes % (Manual) 8 Metamyelocytes % (Man) 2 H Myelocytes % (Man) 5 H Abs Neuts (Manual) 22.4 H Nucleated RBCs/100 WBC 1 H Differential Comment . Platelet Estimate Normal Platelet Morphology Normal Ovalocytes 1+ H Sodium 141 Potassium 4.8 Chloride 109 H Carbon Dioxide 20.1 L Anion Gap 12 BUN 134 H Creatinine 1.32 H Estimated GFR 52 L POC Glucose Random Glucose 292 H Calcium 7.9 L Magnesium Total Bilirubin 0.5 AST 15 ALT 12 Alkaline Phosphatase 100 Total Protein 6.2 L D Albumin 2.7 L Urine Color Urine Clarity Urine pH Ur Specific [place] Urine Protein Urine Glucose (UA) Urine Ketones Urine Occult Blood Urine Nitrate Urine Bilirubin Urine Urobilinogen Ur Leukocyte Esterase Urine RBC Urine WBC Ur Squamous Epith Cells Urine Bacteria Urine Mucus Urine Yeast Micro UA Comment Urine Culture Comments Ur Microalbumin mg/L U Creat (Microalbumin) Microalb/Creat Ratio Stl C.difficile DNA Amp Negative St C. diff Tox Epid 027 Negative Phenytoin 17.1 Phenobarbital 28.9 09/24/18 09/24/18 09/24/18 12:22 17:42 22:50 WBC RBC Hgb Hct MCV MCH MCHC RDW Plt Count MPV Prelim Diff (Auto) Neut % (Auto) Lymph % (Auto) Hand % (Auto) Eos % (Auto) Baso % (Auto) Neut # (Auto) Lymph # (Auto) Hand # (Auto) Eos # (Auto) Baso # (Auto) WBC Differential Seg Neuts % (Manual) Band Neuts % (Manual) Lymphocytes % (Manual) Monocytes % (Manual) Metamyelocytes % (Man) Myelocytes % (Man) Abs Neuts (Manual) Nucleated RBCs/100 WBC Differential Comment Platelet Estimate Platelet Morphology Ovalocytes Sodium Potassium Chloride Carbon Dioxide Anion Gap BUN Creatinine Estimated GFR POC Glucose 254 H 234 H 185 H Random Glucose Calcium Magnesium Total Bilirubin AST ALT Alkaline Phosphatase Total Protein Albumin Urine Color Urine Clarity Urine pH Ur Specific [place] Urine Protein Urine Glucose (UA) Urine Ketones Urine Occult Blood Urine Nitrate Urine Bilirubin Urine Urobilinogen Ur Leukocyte Esterase Urine RBC Urine WBC Ur Squamous Epith Cells Urine Bacteria Urine Mucus Urine Yeast Micro UA Comment Urine Culture Comments Ur Microalbumin mg/L U Creat (Microalbumin) Microalb/Creat Ratio Stl C.difficile DNA Amp St C. diff Tox Epid 027 Phenytoin Phenobarbital 09/25/18 09/25/18 09/25/18 04:09 05:48 12:35 WBC RBC Hgb Hct MCV MCH MCHC RDW Plt Count MPV Prelim Diff (Auto) Neut % (Auto) Lymph % (Auto) Hand % (Auto) Eos % (Auto) Baso % (Auto) Neut # (Auto) Lymph # (Auto) Hand # (Auto) Eos # (Auto) Baso # (Auto) WBC Differential Seg Neuts % (Manual) Band Neuts % (Manual) Lymphocytes % (Manual) Monocytes % (Manual) Metamyelocytes % (Man) Myelocytes % (Man) Abs Neuts (Manual) Nucleated RBCs/100 WBC Differential Comment Platelet Estimate Platelet Morphology Ovalocytes Sodium 145 Potassium 5.1 Chloride 113 H Carbon Dioxide 19.7 L Anion Gap 12 BUN 112 H Creatinine 1.15 Estimated GFR 62 L POC Glucose 176 H 194 H Random Glucose 181 H D Calcium 7.7 L Magnesium 2.3 Total Bilirubin 0.5 AST 22 ALT 15 Alkaline Phosphatase 112 Total Protein 6.1 L Albumin 2.4 L Urine Color Urine Clarity Urine pH Ur Specific [place] Urine Protein Urine Glucose (UA) Urine Ketones Urine Occult Blood Urine Nitrate Urine Bilirubin Urine Urobilinogen Ur Leukocyte Esterase Urine RBC Urine WBC Ur Squamous Epith Cells Urine Bacteria Urine Mucus Urine Yeast Micro UA Comment Urine Culture Comments Ur Microalbumin mg/L U Creat (Microalbumin) Microalb/Creat Ratio Stl C.difficile DNA Amp St C. diff Tox Epid 027 Phenytoin Phenobarbital Result Diagrams: 09/24/18 04:08 09/25/18 04:09 Microbiology: Microbiology 09/23/18 15:30 Gram Stain - Final Sputum - Endotracheal Sputum Culture - Final Pseudomonas aeruginosa 09/22/18 13:26 Aerobic Blood Culture - Preliminary Blood - Peripheral No growth in 3 days Anaerobic Blood Culture - Preliminary Staphylococcus epidermidis 09/22/18 13:23 Aerobic Blood Culture - Preliminary Blood - Peripheral No growth in 3 days Anaerobic Blood Culture - Preliminary No growth in 3 days 09/24/18 09:12 Stool Occult Blood (ADAN) - Final Stool Hemoccult negative 09/21/18 12:10 Urine Culture - Final Catheterized Urine Kathy glabrata Assessment and Plan - Disease Oriented Problem List (1) Localization-related (focal) (partial) symptomatic epilepsy and epileptic syndromes with complex partial seizures, intractable, with status epilepticus (2) Atrial fibrillation (3) Acute encephalopathy (4) Hyperkalemia (5) Chronic kidney disease (CKD) stage G3a/A1, moderately decreased glomerular filtration rate (GFR) between 45-59 mL/min/1.73 square meter and albuminuria creatinine ratio less than 30 mg/g (6) C. difficile diarrhea (7) Status post craniotomy (8) Mitral valve regurgitation (9) Pulmonary hypertension (10) Acute respiratory failure with hypoxemia (11) Diabetes Pertinent Non-Medical Issues: Psychosocial: . Has adult children Spiritual: Legal:Pt unable to participate in decision making, not clear he will regain ability. Per [place] statutes would be approp legal proxy. May have advanced directives/HCS. Reported may have early dementia process. Unless she is deemed incapacitated, might recommend shared decision making with her and other family members Ethical issues impacting care: no ethical issues identified Important Contacts: Ludy Moise [phone] Grandson Ru [phone] . Prognosis: Admitted for seizure activity. Continue to have refractory seizure activity despite antiepileptics. Status post resection per neurosurgery. Neurological status not improving despite multiple interventions. Given very poor neuro status and assessments thus far if does not make significant improvement overall prognosis for meaningful recovery appears poor. Code Status: Full Code Plan: Legal decision maker:Pt unable to participate in decision making, not clear he will regain ability. Per [place] statutes would be approp legal proxy. May have advanced directives/HCS. Reported may have early dementia process. Unless she is deemed incapacitated, might recommend shared decision making with her and other family members Goals:Planned withdrawal of life support today, around 3:30 pm . and all of adult children signed exhibit b, Exhibit C signed, also in chart. 1530--- comfort orders entered for pre-withdrawal, time and withdrawal and post withdrawal. Anticipatory guidance has been provided. If patient survives until tomorrow will discuss hospice and possible care center placement at that time. CODE STATUS:full code SYMPTOMS: --dyspnea= intubated. Currently breathing comfortable on mech vent no sedation. Unable to medically wean 2/2 neuro status, seizures. -- seizures= hx of fall, SDH, this admit presents w seizure activity. Requiring multiple anti-epileptics per neuro, still w sz activity. s/p resection per neurosurgery, PATH pending. --pain- potential sources would include bedbound status, recent brain surgery. currently minimal responsive to any pain stimuli; any sedating agents had been held for neuro assessments. Family requests NO escalation and comfort meds be added for what they feel are signs of pain . PRN hydromorphone added today. -- encephalopathy- hx of fall, SDH, this admit presents w seizure activity. Requiring multiple anti-epileptics per neuro, still w sz activity. s/p resection per neurosurgery, PATH pending. + renal failure, may be compounding encephalopathy?, The renal failure is slowly improving no significant changes in neuro assessment at this point. Palliative care will continue to follow during hospital course as condition evolves, to assist patient/decision-maker with understanding of medical conditions, weighing benefits/burdens of treatment options, for clarification of goals of treatment. Additionally will assist with any symptoms of palliative concern Attestation Attestation: To help prompt me to consider important information that might be impacting today's encounter and assessment, information from prior notes written by myself or my colleagues may have been "brought forward" into today's note. My signature on this note, however, is an attestation that I personally performed the exam, history, and/or decision-making noted today, and, unless otherwise indicated, the interactions with patient, family, and staff as well as the review of records all occurred today. I also attest that the listed assessment and stated plan reflect my best clinical judgment today based on the combination of historical information, prior notes, and today's exam/ interactions. When time spent is documented, it refers only to time spent today by the signer, or if indicated, combined time spent today by collaborating physician/nurse practitioner.
[2018-09-25] MEDS ORDERED: HYDROmorphone PF Inj 1 MG/ML Ampul IV.PUSH PRN (15:30)
[2018-09-25] MEDS ORDERED: HYDROmorphone PF Inj 1 MG/ML Ampul IV.PUSH ONE ×2 (15:30)
[2018-09-25] MEDS ORDERED: Hyoscyamine Inj 0.5 MG/ML Ampul IV.PUSH ONE (15:30)
[2018-09-25 16:07] VITALS: RESP 26
--- NOTE | 2018-09-25 18:05 | P.PNNEU ---
Subjective Subjective Comments: No acute events Active Medications: Active Medications Albuterol (Duoneb Neb (Prn)) 1 ampul NEB Q2HR NEB PRN PRN Reason: WHEEZING Last Admin: 09/17/18 19:45 Dose: 1 ampul Bisacodyl (Dulcolax Supp) 10 mg RECTAL DAILY PRN PRN Reason: SEVERE CONSITIPATION Chlorhexidine Gluconate (Peridex 0.12% Oral Kit) 15 ml OROPHARYNG BID@0800, 2000 [facility] Last Admin: 09/25/18 09:44 Dose: 15 ml Dexamethasone Sodium Phosphate (Decadron Inj) 4 mg IV.PUSH Q12HR [facility] Last Admin: 09/25/18 09:45 Dose: 4 mg Famotidine (Pepcid Pf Inj) 20 mg IV.PUSH Q12HR [facility] Last Admin: 09/25/18 09:46 Dose: 20 mg Furosemide (Lasix Inj) 40 mg IV.PUSH BID@0900,1800 [facility] Last Admin: 09/25/18 09:45 Dose: 40 mg Hydromorphone HCl (Dilaudid Pf Inj) 0.75 mg IV.PUSH Q30M PRN PRN Reason: SEE LABEL COMMENTS Hydromorphone HCl (Dilaudid Pf Inj) 1 mg IV.PUSH Q30M PRN PRN Reason: SEE LABEL COMMENTS Lacosamide 100 mg/ Sodium (Chloride) 110 mls @ 110 mls/hr IV.SIG Q12HR [facility] Last Infusion: 09/25/18 10:50 Dose: Infused Fosphenytoin Sodium 100 mgpe/ (Sodium Chloride) 52 mls @ 216 mls/hr IV.SIG Q12HR [facility] Last Infusion: 09/25/18 10:00 Dose: Infused Lorazepam (Ativan Inj) 1 mg IV.PUSH Q1H PRN PRN Reason: Agitation/sedation or Seizure Last Admin: 09/07/18 04:37 Dose: 1 mg Lorazepam (Ativan Inj) 1 mg IV.PUSH Q6HR [facility] Lorazepam (Ativan Inj) 2 mg IV.PUSH Q15M PRN PRN Reason: SEIZURES Miscellaneous Medication () 1 each OROPHARYNG 0000,0400,1200,1600 [facility] Last Admin: 09/25/18 16:31 Dose: Not Given Ondansetron HCl (Zofran Inj) 4 mg IV.PUSH Q6H PRN PRN Reason: NAUSEA OR VOMITING Phenobarbital Sodium (Luminal Inj) 60 mg IV.PUSH Q12HR [facility] Last Admin: 09/25/18 09:46 Dose: 60 mg Sodium Chloride (Ns Flush) 2 ml IV.FLUSH BID [facility] Last Admin: 09/25/18 09:47 Dose: 2 ml Sodium Chloride (Ns Flush) 2 ml IV.FLUSH PRN PRN PRN Reason: FLUSH AFTER USING IV ACCESS Last Admin: 09/22/18 20:25 Dose: 2 ml Allergies/Adverse Reactions: Allergies Allergy/AdvReac Type Severity Reaction Status Date / Time digitoxin Allergy Severe Hallucinati Verified 08/19/18 15:46 ons Review of Systems unobtainable due to mental status Physical Exam Vital signs: Vital Signs 09/24/18 19:00 09/24/18 19:01 09/24/18 19:47 Temperature Pulse Rate 85 85 Respiratory Rate 12 12 12 Blood Pressure 97/57 L Pulse Oximetry 99 99 100 09/24/18 20:00 09/24/18 21:00 09/24/18 22:00 Temperature 97.8 F Pulse Rate 87 87 88 Respiratory Rate 12 17 14 Blood Pressure 102/62 103/62 96/57 L Pulse Oximetry 100 100 100 09/24/18 23:00 09/24/18 23:41 09/25/18 00:00 Temperature 97.9 F Pulse Rate 79 77 Respiratory Rate 13 16 14 Blood Pressure 100/56 L 98/57 L Pulse Oximetry 100 100 100 09/25/18 01:00 09/25/18 02:00 09/25/18 03:00 Temperature Pulse Rate 80 83 84 Respiratory Rate 14 15 15 Blood Pressure 108/65 101/66 128/60 Pulse Oximetry 100 100 100 09/25/18 04:00 09/25/18 04:04 09/25/18 05:00 Temperature 97.9 F Pulse Rate 82 88 Respiratory Rate 16 20 14 Blood Pressure 110/58 L 108/66 Pulse Oximetry 100 95 97 09/25/18 06:00 09/25/18 07:00 09/25/18 07:54 Temperature Pulse Rate 83 89 Respiratory Rate 15 18 20 Blood Pressure 108/66 Pulse Oximetry 100 100 100 09/25/18 08:00 09/25/18 08:07 09/25/18 09:00 Temperature 97.6 F Pulse Rate 97 H 91 H 96 H Respiratory Rate 19 20 20 Blood Pressure 111/72 Pulse Oximetry 100 97 100 09/25/18 09:58 09/25/18 10:00 09/25/18 10:41 Temperature Pulse Rate 94 H 95 H 94 H Respiratory Rate 21 25 H Blood Pressure 108/61 105/65 Pulse Oximetry 100 100 100 09/25/18 11:00 09/25/18 11:56 09/25/18 12:00 Temperature 97.7 F Pulse Rate 97 H 91 H Respiratory Rate 21 20 Blood Pressure 121/67 115/65 Pulse Oximetry 100 100 100 09/25/18 13:00 09/25/18 14:00 09/25/18 15:00 Temperature Pulse Rate 91 H 91 H 91 H Respiratory Rate Blood Pressure 103/60 121/66 113/71 Pulse Oximetry 100 100 100 09/25/18 16:00 Temperature Pulse Rate 89 Respiratory Rate 26 H Blood Pressure 110/68 Pulse Oximetry 100 Intake & Output 09/24/18 09/25/18 09/25/18 18:59 06:59 18:59 Intake Total 3730 / 3730 2198 / 2198 1262 / 1262 Output Total 1600 / 1600 1500 / 1500 Balance 2130 / 2130 698 / 698 1262 / 1262 Weight 178.8 kg Intake: IV 2312 / 2312 1362 / 1362 1262 / 1262 NS Inj 1,000 ML @ 150 mls/hr IV 1999 / 1999 1000 / 1000 1000 / 1000 .CONT .Q6H40M [facility] Rx#:[id number] Flexbumin 25% Inj 100 ML @ 60 100 / 100 100 / 100 mls/hr IV.SIG Q12H [facility] Rx#: [id number] Maxipime Inj 2,000 MG In NS Inj 100 / 100 100 / 100 100 ML @ 200 mls/hr IV.SIG Q8H [facility] Rx#:[id number] Diflucan 100 mg Premix Bag 50 50 / 50 ML @ 50 mls/hr IV.SIG Q24H [facility] Rx#:[id number] Cerebyx Inj 100 MGPE In NS Inj 52 / 52 52 / 52 52 / 52 50 ML @ 216 mls/hr IV.SIG Q12HR [facility] Rx#:[id number] Vimpat Inj 100 MG In NS Inj 100 110 / 110 110 / 110 110 / 110 ML @ 110 mls/hr IV.SIG Q12HR [facility] Rx#:[id number] Tube Feeding 568 / 568 436 / 436 Tube Irrigant 450 / 450 400 / 400 Water Bolus Amount 400 / 400 Output: Stool 50 / 50 Urine Amount (Catheter) 1550 / 1550 1500 / 1500 Indwelling Temp Sensing 1550 / 1550 1500 / 1500 Catheter Other: Date of Last Bowel Movement 09/24/18 09/24/18 09/25/18 Narrative: GENERAL: in NAD, looks comfortable SKIN: Warm and dry. HEAD: Atraumatic. Normocephalic. EYES: Sluggishly reactive CARDIOVASCULAR: Regular rate and rhythm. RESPIRATORY: Extubated GASTROINTESTINAL: Abdomen soft, non-tender, nondistended. MUSCULOSKELETAL: No obvious deformities. Bilateral lower extremity edema NEUROLOGICAL: Extubated, deep stuporous, open mouth breathing nonverbal not following, grimace to deep tactile, OU 3-2.5 mm sluggishly reactive no gaze deviation, has corneal reflex OU, no localization PSYCHIATRIC: Calm - Constitutional no acute distress - Routine HEENT Exam Head: Present: normocephalic - Urinary Catheter Management Indwelling Urethral Catheter Cath placed during this visit: yes, but has since been removed by the nurse Reason for continuing: Decision to DC catheter Insertion date: 09/06/18 Insertion time: 23:00 Removal date: 09/08/18 Removal time: 18:21 Straight Cath placed during this visit: yes, but has since been removed by the nurse Reason for continuing: Decision to DC catheter Insertion date: 09/09/18 Insertion time: 02:20 Removal date: 09/10/18 Removal time: 12:00 Indwelling Temp Sensing Catheter Cath placed during this visit: yes Reason for continuing: Acute urinary retention Insertion date: 09/12/18 Insertion time: 15:30 Objective Laboratory Results - last 24 hr 09/24/18 09/25/18 09/25/18 22:50 04:09 05:48 Sodium 145 Potassium 5.1 Chloride 113 H Carbon Dioxide 19.7 L Anion Gap 12 BUN 112 H Creatinine 1.15 Estimated GFR 62 L POC Glucose 185 H 176 H Random Glucose 181 H D Calcium 7.7 L Magnesium 2.3 Total Bilirubin 0.5 AST 22 ALT 15 Alkaline Phosphatase 112 Total Protein 6.1 L Albumin 2.4 L 09/25/18 12:35 Sodium Potassium Chloride Carbon Dioxide Anion Gap BUN Creatinine Estimated GFR POC Glucose 194 H Random Glucose Calcium Magnesium Total Bilirubin AST ALT Alkaline Phosphatase Total Protein Albumin Microbiology 09/23/18 15:30 Gram Stain - Final Sputum - Endotracheal Sputum Culture - Final Pseudomonas aeruginosa 09/22/18 13:26 Aerobic Blood Culture - Preliminary Blood - Peripheral No growth in 3 days Anaerobic Blood Culture - Preliminary Staphylococcus epidermidis 09/22/18 13:23 Aerobic Blood Culture - Preliminary Blood - Peripheral No growth in 3 days Anaerobic Blood Culture - Preliminary No growth in 3 days Review/Management - Diagnosis (1) Localization-related (focal) (partial) symptomatic epilepsy and epileptic syndromes with complex partial seizures, intractable, with status epilepticus Code(s): G40.211 - Localization-related (focal) (partial) symptomatic epilepsy and epileptic syndromes with complex partial seizures, intractable, with status epilepticus Status: Acute Current Visit: Yes (2) Atrial fibrillation Code(s): I48.91 - Unspecified atrial fibrillation Status: Acute Current Visit: Yes (3) Acute encephalopathy Code(s): G93.40 - Encephalopathy, unspecified Status: Acute Current Visit: Yes (4) ICH (intracerebral hemorrhage) Code(s): I61.9 - Nontraumatic intracerebral hemorrhage, unspecified Status: Acute Current Visit: No - Review/Management Plan: Persistent comatose state. Off Versed MRI brain scan shows evacuation of left frontal hemorrhage perilesional edema There does appear to be increased signal bihemispheric sulcal regions on FLAIR imaging; this was not seen on his previous MRI scan. possibly related to fluid shifts, metabolic, seizure, infectious Progressive hypernatremia and increasing BUN and creatinine level. 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
[2018-09-25] MEDS: HYDROmorphone PF Inj 1 MG/ML Ampul IV.PUSH PRN ×2 (18:09→21:25)
[2018-09-25 22:24] VITALS: BP 57/35; PULSE 40; TEMP 97.9; O2SAT 79
--- NOTE | 2018-09-26 07:15 | P.DN ---
- Provider Primary care physician: Gary Rivera Consults: 09/06/18 23:59 Consult to Neurology Routine Consulting Provider: Abisai Bonilla Reason for Consultation: SEIZURE Notified:: Service Spoke with:: yael Date Notified:: 09/07/18 Time Notified:: 00:34 Ordering Provider: JASWINDER 09/11/18 10:53 Consult to Neurosurgery Routine Consulting Provider: Orlando Remy Preferred Test And Research Reactor Operator:: Orlando Remy Patient known to:: Orlando Remy Reason for Consultation: Intractable seizures, frontal lobe hematoma Notified:: Office Spoke with:: LONNIE Date Notified:: 09/11/18 Time Notified:: 10:58 Ordering Provider: LORIE 09/21/18 09:51 Consult to Nephrology Routine Consulting Provider: Hayder Lewis Does the patient have a Compliance Counsel who follows them?: No Preferred Nephrology Test And Research Reactor Operator:: Top Lift Trimmer Physician Reason for Consultation: Azotemia despite adequate hydration. Creatinine 1.31, BUN 141 Notified:: Service Spoke with:: KATE Date Notified:: 09/21/18 Time Notified:: 10:05 Ordering Provider: LORIE 09/22/18 12:31 Consult to Infectious Diseases Routine Consulting Provider: Erika Gonzalez Reason for Consultation: C diff colitis, worsening wbc count Notified:: Service Spoke with:: BASHIR Date Notified:: 09/22/18 Time Notified:: 12:33 Ordering Provider: MIGUE 09/22/18 12:38 Consult to Palliative Care Routine Consulting Provider: Norm Husain Reason for Consultation: address goals of care Notified:: Service Spoke with:: JONAH Date Notified:: 09/22/18 Time Notified:: 12:44 Ordering Provider: MIGUE - Admitting Diagnosis (1) Acute encephalopathy (2) Acute respiratory failure with hypoxemia (3) Atrial fibrillation (4) C. difficile diarrhea (5) Chronic kidney disease (CKD) stage G3a/A1, moderately decreased glomerular filtration rate (GFR) between 45-59 mL/min/1.73 square meter and albuminuria creatinine ratio less than 30 mg/g (6) Hyperkalemia (7) ICH (intracerebral hemorrhage) (8) Localization-related (focal) (partial) symptomatic epilepsy and epileptic syndromes with complex partial seizures, intractable, with status epilepticus (9) Mitral valve regurgitation (10) Pulmonary hypertension (11) Seizure - Diagnosis at Time of (1) Cardiac arrest Diagnosis: Principal (2) Brain tumor Diagnosis: Principal (3) ICH (intracerebral hemorrhage) Diagnosis: Principal (4) Severe sepsis Diagnosis: Principal (5) HCAP (healthcare-associated pneumonia) Diagnosis: Principal (6) C. difficile colitis Diagnosis: Principal (7) Acute on chronic kidney failure Diagnosis: Principal (8) Status epilepticus Diagnosis: Principal (9) Acute respiratory failure with hypoxemia Diagnosis: Principal (10) Atrial fibrillation Diagnosis: Principal (11) Encephalopathy Diagnosis: Principal (12) Diabetes Diagnosis: Principal (13) Hyperkalemia Diagnosis: Principal (14) Mitral valve regurgitation Diagnosis: Secondary (15) Pulmonary hypertension Diagnosis: Secondary (16) Status post craniotomy Diagnosis: Secondary - Date and Time Date of admission: 09/06/18 23:05 Date of : 09/25/18 Time of : 22:15 - Summary Brief History: 69-year-old male with a history of recent ICH, and seizure disorder presents from home after he was seizing. Called paramedics arrived to find him seizing in the setting they gave him 2 of Versed to break his seizure after they establish IV access patient then in route has another seizure and they gave him 2 more Versed. The patient was a postictal voiding episode and became in respiratory distress needed to be intubated by the paramedics. They intubated him and arrived to emergency department sedated intubated and possibly seizing with contraction of the right hand. He was started on a propofol drip to keep him sedated as well as seizure-free and he has been admitted to the ICU. Result Diagrams: 09/24/18 04:08 09/25/18 04:09 Significant Findings: Abnormal Lab Results 09/25/18 12:35 POC Glucose 194 H Hospital Course: 69-year-old male with a history of recent ICH, and seizure disorder presents from home after he was seizing. Called paramedics arrived to find him seizing in the setting they gave him 2 of Versed to break his seizure after they establish IV access patient then in route has another seizure and they gave him 2 more Versed. The patient was a postictal voiding episode and became in respiratory distress needed to be intubated by the paramedics. They intubated him and arrived to emergency department sedated intubated and possibly seizing with contraction of the right hand. He was started on a propofol drip to keep him sedated as well as seizure-free and he has been admitted to the ICU. 09/07: No more seizure activity. Weaned to propofol 5 mics per kilogram per minute. AED restarted. CAT scan shows diminished size of left frontal lobe hematoma compared to prior study. 09/08: No more obvious seizure activity. Patient withdraws limbs aside from left foot. He grimaces to noxious stimulation. Breathes spontaneously over the ventilator. We need to confirm that he is indeed stopped seizing. Cerebyx added to Keppra. 09/09: Focus of left frontal intermittent seizure activity persists on 09/08. Still on Versed drip infusion and mechanical ventilation. Neurology service continues to adjust AED regimen. MRI yesterday without other significant injury aside from the known left frontal hematoma. 09/10: Focal area of intermittent seizure frontal lobe persisted yesterday on EEG. AED doses being adjusted. Urine output marginal, will reinstitute loop diuretic along with metolazone. Underlying cardiac function impaired at baseline with severe mitral and tricuspid regurgitation along with pulmonary hypertension as expected. Most recent echo is about a month ago. 09/11: Continued left fronto temporal seizure activity despite 3 AEDs. Juxtaposition of this 2 cm maturing left frontal lobe hematoma to the seizure activity is probably not coincidental. I have discussed with the family the concept of excising the mature hematoma in an attempt to attenuate the seizure activity. 09/12: Patient required versed yesterday for elevated airway pressures possibly related to seizure activity. No problems after Versed bolus and restarted. Plan is for resection of the seizure substrate in the left frontal lobe today. 09/13: Status post resection of left frontal lobe hemorrhagic mass yesterday. Return from OR on mechanical ventilation. Stable hemodynamics. Patient remains neurologically unstable with refractory seizures for which he underwent mass resection. 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 All sedation was stopped late Saturday and we are waiting for the gentleman to wake up. By cardiac echo obtained during his last admission he has both severe mitral and tricuspid regurgitation. He tends to retain fluid and is been chronically on Bumex 2 mg and metolazone 5 mg daily. Renal function tests indicate a prerenal type azotemia. It is unlikely that this represents too little intravascular volume because his weight is up and he has peripheral edema in his lower extremities. I have added albumin in an attempt to mobilize some fluid. Fortunately gas exchange has been good. 09/15: off sedation x 48h. still not following commands. very poor neuro exam. GCS 3. ? weak flicker of movement in the right upper extremity (unclear if posturing or withdraw) and slight grimace to painful stimuli. otherwise, no movement in any extremity. +cough. + corneals. pupils 2mm equal and reactive. EEG ordered. 09/16: remains off sedation for days. now worsening exam: no grimace at all to painful stimuli. GCS remains 3. EEG persistently poor, but no overt seizures. MRI ordered today without new ischemic area. anti-epileptic levels therapeutic. discussed with Dr. Bonilla: if no improvements by the end of the week, prognosis is grim at best. discussed this together at length with the family. states she does knows that he would not want trach/peg and would not want to live if he was not awake and off machines. 09/17: Elevated BUN likely contributing to his somnolence. Considering the extended period of time he was on moderate to high dose Versed it may well take many more days for that to clear as well. I am forced to hydrate him knowing that it will increase his peripheral edema. But were going to have to normalize his urea nitrogen before we can assume he is encephalopathic for some other reason. 09/18: Creatinine decline but BUN has increased again. Patient is being aggressively hydrated with hypotonic solution but were having a hard time keeping up with the was moderate diuresis from the hyperglycemia. Once again will increase the long-acting insulin coverage. Certainly elevated sodium and contributing to his somnolence. Decadron is making glucose control even harder. Underlying all this is heart failure and his ongoing retention of fluid , complicating all of these issues. 09/19: Minimal improvement and osmolality and BUN. Persistent white blood cell count elevation. No change in neurologic status. Family wishes to continue pursuing aggressively all avenues. Presently waiting for benzodiazepines to wear off. 09/20: Aside from some mouth movements there is no real increase in continuous activity nor withdrawal. Electrolytes require correction today after diuretics changed for the treatment of chronic heart failure. 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 No movement nor withdrawal today. 6 days since all all sedation and analgesia stopped. BUN 141 likely contributing to somnolence. Patient is well hydrated with greater than 1500 mL's of urine per day yet prerenal pattern persists. IV has been running at 150 mL's per hour for many days now and azotemia worsens. Possible component of osmotic diuresis secondary to hyperglycemia? In my discussions with family we have all decided if patient does not wake up more after 7 days without sedation, and normalized BUN, then recovery from this episode of status seizures is a lot less likely. 09/22: Remains unresponsive severely encephalopathy. WBC count increasing 20 7K today. Infectious disease consulted. Also patient's BUN/creatinine increasing BUN is 153 with a creatinine 1.5. D/W Neurology Dr. Bonilla, re nephrology consult for possible dialysis. He is recommending consulting palliative care. As the pathology may show glioma 09/23: Remains unresponsive severely encephalopathic. Remains orally intubated on mechanical ventilation. Tolerating tube feeds. 09/24: Remains intubated not on any sedation. Repeat EEG shows severe encephalopathy, occasional sharp activities bilaterally worse than left temporal. Path still pending. Sputum culture growing GNR 09/25: No acute events reported overnight. Patient appears comfortable on the vent and unresponsive. Family planning on withdrawal of life support and transition to comfort measures today After family arrived at the bedside premedications were given in life support was withdrawn. Patient at 2215 on 09/25/2018
== END 2018-09-25 23:59 | disposition expired ==
LOC: NEPC 22:37 → NEDA 23:05 → N03 09-07 03:30
PROVIDERS: ADMIT Internal Medicine Critical Care Medicine; ATTEND Internal Medicine Critical Care Medicine